=== PATIENT | male | born 1950 | race Caucasian/White ===

== ENCOUNTER 2022-11-01 14:46 | Emergency (ER) | payer OTHER ==
--- OUTSIDE RECORDS SUMMARY | 2022-11-01 14:56 | XMS REPORT | Continuity of Care Document ---
:1950 Author Organization [facility] t Address [address] [place] [address] Care Team Providers Name Role Phone No, Pcp [facility] Primary Care Physician Unavailable MORALES PÉREZ Attending Clinician Unavailable DONITA RUDD Attending Clinician Unavailable Linus Saleh MD Attending Clinician Isha Nunez MD Attending Clinician JOAQUIN ROLLINS Attending Clinician Unavailable JERRELL VILLAFUERTE Attending Clinician Unavailable MILY FLUTON Attending Clinician Unavailable Brady Juarez MD Attending Clinician Aubrey Moore MD Attending Clinician Basilio Ryan MD Attending Clinician Unavailable Liuns Saleh MD Attending Clinician ISHA NUNEZ Admitting Clinician Unavailable SHARON CLARK Admitting Clinician Unavailable Payers Payer Name Policy Type Policy Number Effective Date Expiration Date S kristin MEDICARE A B [id number] 2013 00:00:00 GENERIC MEDICARE [id number] 2019 SUPPLEMENT 00:00:00 Problems Condition Condition Condition Status Onset Resolution Last Treating Co mments Source Name Details Category Date Date Treatment Clinician Date s/p ACB x2 s/p ACB x2 Disease Recurre [facility] ([facility]G-[facility], (SVG-LAD, nce 3-21 Luke s SVG-ramus SVG-ramus 00:00: Medi alex int), AVR, int), AVR, 00 Ce nter Maze, Maze, Atriclip Atriclip 08/24/22 08/24/22 (Dr. Juarez) (Dr. Juarez) Acute Acute Disease Recurre [facility] renal [facility] failure failure Medical superimpos superimpos Ce nter ed on ed on stage 1 stage 1 chronic chronic kidney kidney disease, disease, unspecifie unspecifie d acute d acute renal renal failure failure type type Acute Acute Disease Active [facility] post-opera post-opera Nathalia kes tive pain tive pain [facility] Acute Acute Disease Active [facility] respirator respirator Nathalia kes y y Medical insufficie insufficie Ce nter ncy ncy Acute Acute Disease Active [facility] blood loss blood loss Nathalia kes anemia anemia [facility] Status Status Disease Active [facility] post post [facility] cardiac cardiac Medical surgery surgery Center Allergies, Adverse Reactions, Alerts Allergy Allergy Status Severity Reaction(s) Onset Inactive Treating Comm ents Source Name Type Date Date Clinician NO KNOWN Allergy Active [facility] Family History Family Member Diagnosis Comments Start Date Stop Date Source Natural mother [facility] Natural father [facility] Social History Social Habit Start Date Stop Date Quantity Comments Source Gender identity [facility] Alcohol intake 2022-10-14 2022-10-14 Lifetime [employer]ism 00:00:00 00:00:00 non-drinker Hospital (finding) History of Social 2022-10-14 2022-10-[address] function 00:00:00 00:00:00 Hospital Tobacco use and 2022-09-28 2022-09-28 Smokeless [employer]ism exposure 00:00:00 00:00:00 tobacco non-user Hospital Exposure to 2022-08-01 2022-08-11 Not sure [facility] SARS-CoV-2 (event) 00:00:00 19:00[facility] Sex Assigned At [birth year] [facility] 00:00:00 00:00:00 Hospital Smoking Status Start Date Stop Date Source Never smoked tobacco [facility] H ospital Medications Ordered Filled Start Stop Current Ordering Indication Dosage Frequency Signature Comments Components Source Medication Medication Date Date Medication? Clinician (SIG) Name Name sennosides Yes 1{tbl} QD Take 1 [facility]odi (SENNA 5-[address] LAXATIVE 09:51: mouth Hospita ORAL) 58 daily. l losartan 2022-0 Yes [id number] 100mg QD Take 1 M ethodi (COZAAR) 5-[address] 100 MG 00:00: (100 mg Hospita tablet 00 total) by l mouth daily. metoprolol 0 Yes [id number] 50mg QD Take 1 [facility] succinate 5-24 tablet (50 st XL 00:00: mg total) Hospita (TOPROL-XL) 00 by mouth l 50 mg 24 hr daily. tablet furosemide 0 Yes [id number] 20mg Q24H Take 1 [facility] (LASIX) 20 5-24 tablet (20 st mg tablet 00:00: mg total) Hos jessica 00 by mouth l daily as needed (leg swelling). atorvastati Yes [id number] 40mg QD Take 1 [facility] n (LIPITOR) 5-08 tablet (40 st 40 mg 00:00: mg total) Hospita tablet 00 by mouth l nightly. losartan 2022- No [id number] 50mg QD Take 1 M ethodi (COZAAR) 50 5-08 05-24 tablet (50 s t MG tablet 00:00: 00:00 mg total) Ho spita 00 :00 by mouth l daily. metoprolol 2022- No [id number] 25mg QD Take 1 Methodi succinate 5-08 05-24 tablet (25 st XL 00:00: 00:00 mg total) Hospita (TOPROL-XL) 00 :00 by mouth l 25 mg 24 hr daily. tablet Ferrocite Yes 1{tbl} QD Take 1 Meth allyson Plus 106 mg 4-[address] iron- 1 mg 00:00: mouth Hospit a tablet 00 daily with l breakfast. traZODone 2022- No TAKE 1/2 Met [facility] (DESYREL) 4-20 05-[address] 50 MG 00:00: 00:00 TABLET AT Hospit a tablet 00 :00 BEDTIME l NEEDED FeroSuL 325 2022- No 325mg QD Take 1 Me thodi mg (65 mg 4-20 05-[address] iron) 00:00: 00:00 (325 mg Hospita tablet 00 :00 total) by l mouth daily. metoprolol 2022- No TAKE 1 Meth allyson succinate 4-20 05-[address] XL 00:00: 00:00 MOUTH ONCE Hospit a (TOPROL-XL) 00 :00 DAILY AT l 25 mg 24 hr 6AM tablet losartan 2022- No 25mg QD Take 1 Method i (COZAAR) 25 4-20 05-08 tablet (25 s t MG tablet 00:00: 00:00 mg total) Ho spita 00 :00 by mouth l daily. gabapentin 2022- No 100mg Q.5D Take 1 Met [facility]odi (NEURONTIN) 4-20 05-[address] 100 mg 00:00: 00:00 (100 mg Hospita capsule 00 :00 total) by l mouth 2 (two) times a day. furosemide 2022- No TAKE 1 Meth allyson (LASIX) 20 -20 05-[address] mg tablet 00:00: 00:00 MOUTH AT 8 H ospita 00 :00 AM AND AT l 3 PM potassium 2022- No 10meq Q.5D Take 1 Meth allyson chloride -20 05-08 tablet (10 st (KLOR-CON) 00:00: 00:00 mEq total) Hospita 10 MEQ CR 00 :00 by mouth 2 l tablet (two) times a day. atorvastati 2022- No 40mg QD Take 1 Met hodi n (LIPITOR) -20 05-08 tablet (40 s t 40 mg 00:00: 00:00 mg total) Hospit a tablet 00 :00 by mouth l nightly. nystatin 2022- No APPLY Methodi (MYCOSTATIN -20 05-[address] ) 100,000 00:00: 00:00 TOPICALLY Ho spita unit/gram 00 :00 TO l powder AFFECTED AREA TWICE DAILY polyethylen Yes 17g QD Take [address] e glycol 4-12 by mouth [facility] (GLYCOLAX) 00:00: in the Medic al 17 gram 00 morning. Center packet aspirin 2023- Yes 81mg QD Take 1 [facility] (ECOTRIN) 09-02 04-12 tablet (81 st 81 MG 00:00: 04:59 mg total) Hospit a enteric 00 :00 by mouth l coated daily. tablet aspirin 81 2023- Yes 81mg QD Take [address] [facility] MG EC 09-02-11 tablet (81 [facility] tablet 00:00: 23:59 mg total) Medic al 00 :00 by mouth Center in the morning. metoprolol 2022-0 2023- Yes 25mg QD Take [address] [facility] succinate 09-02- tablet (25 Dorys es (TOPROL-XL) 00:00: 23:59 mg total) Medical 25 MG 24 hr 00 :00 by mouth Cent er tablet in the morning. amiodarone 2023- Yes 200mg QD Take [address] [facility] (PACERONE) 09-02 tablet [facility] 200 MG 00:00: 23:59 (200 mg Medical tablet 00 :00 total) by Center mouth in the morning. losartan 2023- Yes 25mg QD Take [address] [facility] (COZAAR) 25 09-02 tablet (25 L ukes MG tablet 00:00: 23:59 mg total) Me dical 00 :00 by mouth Center in the morning. amIODarone 2022- No 200mg Take 1 Met hodi (PACERONE) 09-02 05-[address] 200 MG 00:00: 00:00 (200 mg Hospita tablet 00 :00 total) by l mouth. heparin 2022-0 Yes 5000U Inject 1 [facility] injection 4-11 mL (5,000 [facility] 5,000 00:00: Units Medical units/mL 00 total) Center subcutaneo usly every 8 (eight) hours. melatonin 3 0 Yes 3mg Take [address] [facility] mg tablet 4-11 tablet (3 [facility] 00:00: mg total) Medical 00 by mouth Center every night as needed for Insomnia or Sleep. empaglifloz 2022-0 Yes 10mg QD Take [address] [facility] [facility] in 4-11 tablet (10 [facility] (JARDIANCE) 00:00: mg total) M edical 10 mg 00 by mouth Center tablet in the morning. atorvastati 0 2023- Yes 40mg QD Take [address] n (LIPITOR) 09-01 04-10 tablet (40 L ukes 40 MG 00:00: 23:59 mg total) Medica l tablet 00 :00 by mouth Center nightly. senna-docus 2023- Yes 1{tbl} Q.5D Take [address] ate - 04-10 tablet by [facility] (SENOKOT S) 00:00: 23:59 mouth in M edical 8.6-50 mg 00 :00 the Center per tablet morning and 1 tablet before bedtime. insulin 2023- Yes 0U Inject 0-[address] lispro 4-11 04-10 Units [facility]ukes (HumaLOG) 00:00: 23:59 subcutaneo M edical 100 unit/mL 00 :00 usly 3 Center injection (three) times daily before meals. insulin 2023- Yes 0U Inject 0-[address] lispro 4-11 04-10 Units [facility]ukes (HumaLOG) 00:00: 23:59 subcutaneo M edical 100 unit/mL 00 :00 usly every Ce nter injection night as needed (High blood sugar). potassium 2023- Yes 20meq Q.5D Take [address] chloride SA 09-01 04-10 tablet (20 L ukes (K-DUR,KLOR 00:00: 23:59 mEq total) Medical -CON-M) 20 00 :00 by mouth Cente r MEQ tablet in the morning and 1 tablet (20 mEq total) before bedtime. furosemide 2023- Yes 40mg Take [address] [facility] [facility] (LASIX) 40 - 04-10 tablet (40 Nathalia kes MG tablet 00:00: 23:59 mg total) Me dical 00 :00 by mouth Center in the morning and 1 tablet (40 mg total) in the evening. lidocaine 2022- Yes 1{patch Q24H Place [address] (LIDODERM) 09-01 } patch onto Nathalia kes 5 % patch 00:00: 23:59 the skin Med ical 00 :00 in the Center morning for 30 days. Remove & Discard patch within 12 hours or as directed by . sennosides- 2022- No 1{tbl} Take 1 M ethodi docusate 09-01-[address] sodium 00:00: 00:00 mouth. Hospita (SENOKOT-S) 00 :00 l 8.6-50 mg per tablet traMADoL 2022- Yes 50mg Take [address] [facility] [facility] (ULTRAM) 50 09-01 tablet (50 L ukes mg tablet 00:00: 23:59 mg total) Me dical 00 :00 by mouth Center every 6 (six) hours as needed for up to 10 days. Max Daily Amount: 200 mg oxyCODONE 2022- Yes 5mg Take 1 [facility] t (ROXICODONE 09-01 tablet (5 Nathalia kes ) 5 MG 00:00: 23:59 mg total) Medic al immediate 00 :00 by mouth Center release every 6 tablet (six) hours as needed for up to 10 days . Max Daily Amount: 20 mg Vital Signs Vital Name Observation Time Observation Value Comments Source HEIGHT 2022-10-26 09:07:00 182.9 cm WEIGHT 2022-10-26 09:07:00 92.987 kg WEIGHT 2022-09-02 06:21:00 98.476 kg WEIGHT 2022-08-30 04:11:00 102.967 kg WEIGHT 2022-08-29 10:53:00 103.42 kg WEIGHT 2022 06:00:00 99.6 kg WEIGHT 2022-08-24 03:47:00 94.575 kg WEIGHT 2022-08-23 05:16:00 95.709 kg WEIGHT 2022-08-18 06:18:00 99.156 kg WEIGHT 2022-08-15 05:33:00 97.523 kg WEIGHT 2022-08-13 03:00:00 100.245 kg WEIGHT 2022-08-12 05:00:00 97.886 kg HEIGHT 2022-08-11 22:00:00 182.9 cm WEIGHT 2022-08-11 22:00:00 97.977 kg WEIGHT 2022-09-02 06:21:00 98.476 kg WEIGHT 2022-08-30 04:11:00 102.967 kg WEIGHT 2022-08-29 10:53:00 103.42 kg WEIGHT 2022 06:00:00 99.6 kg WEIGHT 2022-08-24 03:47:00 94.575 kg WEIGHT 2022-08-23 05:16:00 95.709 kg WEIGHT 2022-08-18 06:18:00 99.156 kg WEIGHT 2022-08-15 05:33:00 97.523 kg WEIGHT 2022-08-13 03:00:00 100.245 kg WEIGHT 2022-08-12 05:00:00 97.886 kg HEIGHT 2022-08-11 22:00:00 182.9 cm WEIGHT 2022-08-11 22:00:00 97.977 kg Systolic blood 2022-10-14 14:42:00 176 mm[Hg] [facility] pressure Diastolic blood 2022-10-14 14:42:00 107 mm[Hg] [facility] pressure Heart rate 2022-10-14 14:42:00 97 /min [facility] Respiratory rate 2022-10-14 14:42:00 12 /min [facility] Body height 2022-10-14 14:42:00 182.9 cm [facility] Body weight 2022-10-14 14:42:00 95.255 kg [facility] BMI 2022-10-14 14:42:00 28.48 kg/m2 [facility] Oxygen saturation in 2022-10-14 14:42:00 98 /min [facility] Arterial blood by Pulse oximetry Systolic blood 2022-09-02 08:20:00 121 mm[Hg] [facility] Diastolic blood 2022-09-02 08:20:00 58 mm[Hg] [facility] Heart rate 2022-09-02 08:20:00 81 /min [facility] Respiratory rate 2022-09-02 07:48:00 18 /min [facility] Oxygen saturation in 2022-09-02 07:48:00 96 /min [facility] Arterial blood by Medical Ce nter Pulse oximetry Body temperature 2022-09-02 07:00:00 35.94 [place] [facility] Body weight 2022-09-02 06:21:00 98.476 kg [facility] BMI 2022-09-02 06:21:00 29.44 kg/m2 [facility] Body height 2022-08-11 22:00:00 182.9 cm [facility] Procedures Procedure Date / Time Performing Clinician Source Performed TRANSTHORACIC 2022-10-20 14:45:37 Linus Saleh [facility] Ho spital ECHOCARDIOGRAM COMPLETE W CONT STRAIN 3D IF NEEDED POCT-GLUCOSE METER 2022-09-02 08:04:00 Geri, [facility] HEPATIC FUNCTION PANEL 2022-09-02 05:16:00 Octavio [facility] CBC (HEMOGRAM ONLY) 2022-09-02 05:16:00 [facility] BASIC METABOLIC PANEL 2022-09-02 05:16:00 Kely-[facility] MAGNESIUM 2022-09-02 05:16:00 Kely-[facility] POCT-GLUCOSE METER 2022-09-01 21:09:00 Villafuerte, [facility] POCT-GLUCOSE METER 2022-09-01 17:08:00 Villafuerte, [facility] POCT-GLUCOSE METER 2022-09-01 12:36:00 Villafuerte, [facility] POCT-GLUCOSE METER 2022-09-01 07:11:00 Villafuerte, [facility] HEPATIC FUNCTION PANEL 2022-09-01 05:17:00 Octavio [facility] CBC (HEMOGRAM ONLY) 2022-09-01 05:17:00 [facility] BASIC METABOLIC PANEL 2022-09-01 05:17:00 Kely-[facility] MAGNESIUM 2022-09-01 05:17:00 [facility]SE METER 2022-08-31 17:20:00 Villafuerte, [facility] POCT-GLUCOSE METER 2022-08-31 12:31:00 Villafuerte, [facility] POCT-GLUCOSE METER 2022-08-31 07:12:00 JoudaSantiago tom [facility] CBC (HEMOGRAM ONLY) 2022-08-31 05:00:00 [facility] 2022-08-31 04:59[facility]00 [facility] 2022-08-31 04:59:00 Kely-[facility] MAGNESIUM 2022-08-31 04:59:00 Kely-[facility] POCT-GLUCOSE METER 2022-08-30 17:13:00 JoudaSantiago tom [facility] POCT-GLUCOSE METER 2022-08-30 12:12:00 Joudavaishali Santiago [facility] POCT-GLUCOSE METER 2022-08-30 08:06:00 Joudavaishali Santiago [facility] HEPATIC FUNCTION PANEL 2022-08-30 06:06:00 Octavio [facility] BASIC METABOLIC PANEL 2022-08-30 06:06:00 Octavio [facility] CBC (HEMOGRAM ONLY) 2022-08-30 06:06:00 [facility] MAGNESIUM 2022-08-30 06:06:00 [facility] 2022-08-29 19:47:00 Jorommel Santiago Mayrawayne [facility] POCT-GLUCOSE METER 2022-08-29 17:17:00 JoudaSantiago tom [facility] POCT-GLUCOSE METER 2022-08-29 11:59:00 Joudah Santiago [facility] POCT-GLUCOSE METER 2022-08-29 07:13:00 Lawson Vernon [facility] HEPATIC FUNCTION PANEL 2022-08-29 06:07:00 Octavio [facility] BASIC METABOLIC PANEL 2022-08-29 06:07:00 Octavio [facility] CBC (HEMOGRAM ONLY) 2022-08-29 06:07:00 [facility]UM 2022-08-29 06:07:00 [facility] POCT-GLUCOSE METER 2022-08-28 20:19:00 Lawson [facility] POCT-GLUCOSE METER 2022-08-28 17:22:00 Lawson [facility] B-TYPE NATRIURETIC FACTOR 2022-08-28 13:06:00 Linus Saleh I [facility] (BNP) [facility] LACTIC ACID, VENOUS 2022-08-28 13:06:00 Linus Saleh [facility] 2D ECHO W/ DOPPLER 2022-08-28 11:13:29 Enedelia Saleh [facility] (CW/PW/COLOR) [facility] POCT-GLUCOSE METER 2022-08-28 11:00:00 Lawson [facility] POCT-GLUCOSE METER 2022-08-28 07:06:00 VillafuerteJerrell [facility] HEPATIC FUNCTION PANEL 2022-08-28 06:42:00 Octavio [facility] BASIC METABOLIC PANEL 2022-08-28 06:42:00 Octavio [facility] MAGNESIUM 2022-08-28 06:42:00 [facility] CBC (HEMOGRAM ONLY) 2022-08-28 04:55:00 [facility] POCT-GLUCOSE METER 2022-08-27 20:59:00 Villafuerte Jerrell Nemesio [facility] POCT-GLUCOSE METER 2022-08-27 17:37:00 Villafuerte, Jerrell [facility] BASIC METABOLIC PANEL 2022-08-27 16:45:00 Ihsan Waterman [facility] XR CHEST 1 VIEW PORTABLE / 2022-08-27 14:47:00 Brady Juarez [facility] POCT-GLUCOSE METER 2022-08-27 12:38:00 [facility] PO[facility]SE [facility]ER 2022-08-27 07:39:00 [facility] BASIC METABOLIC PANEL 2022-08-27 02:36:00 Serangelo [facility] CALCIUM, IONIZED 2022-08-27 02:36:00 [facility] FUN[facility]EL 2022-08-27 02:36:00 Cher Rebollar [facility] LACTIC ACID, ARTERIAL 2022-08-27 02:36:00 Serangelo [facility] MAGNESIUM 2022-08-27 02:36:00 Serangelo [facility] PHOSPHORUS 2022-08-27 02:36:00 [facility] CBC W/PLT COUNT & AUTO 2022-08-27 02:36:00 [facility] DIFFERENTIAL [facility] CBC W/PLT COUNT & AUTO 2022-08-27 02:36:00 [facility] DIFFERENTIAL [facility] XR CHEST 1 VIEW PORTABLE / 2022-08-27 02:32:00 Dante Fenton [facility] FIBRINOGEN 2022-08-27 02:30:00 [facility] PT/APTT 2022-08-27 02:30:00 [facility] POCT-[facility]UCOSE METER 2022-08-27 00:05:00 [facility]ARE LEUKO-REDUCED RBC 2022 23:55:00 Evy Perdomo [facility] POCT-GLUCOSE METER 2022 18:52:00 [facility] BASIC METABOLIC PANEL 2022 17:10:00 [facility] CALCIUM, IONIZED 2022 17:10:00 [facility] CBC (HEMOGRAM ONLY) 2022 17:10:00 Sermillicentbisi [facility] MAGNESIUM 2022 17:10:00 [facility] PHOSPHORUS 2022 17:10:00 [facility] POCT-GLUCOSE METER 2022 11:59:00 [facility] OXYGEN SATURATION, 2022 08:40:[facility] LACTIC ACID, ARTERIAL 2022 08:40:00 [facility] OXYGEN SATURATION, 2022 06:01[facility]00 [facility] 2022 06:00:00 Villafuerte [facility] BASIC METABOLIC PANEL 2022 02:33:00 [facility] BLOOD GAS, ARTERIAL 2022 02:33:00 [facility] CALCIUM, IONIZED 2022 02:33:00 [facility] HEPATIC FUNCTION PANEL 2022 02:33:00 Cher Rebollar [facility] FIBRINOGEN 2022 02:33:00 [facility] LACTIC ACID, ARTERIAL 2022 02:33:00 [facility] MAGNESIUM 2022 02:33:00 [facility] OXYGEN SATURATION, 2022 02:33:00 [facility] ME[facility]ED [facility] PHOSPHORUS 2022 02:33:00 Serangelo [facility] PT/APTT 2022 02:33:00 [facility] CBC W/PLT COUNT & AUTO 2022 02:33:00 Sermillicentbisi [facility] DIFFERENTIAL [facility] CBC W/PLT COUNT & AUTO 2022 02:33:00 [facility] DIFFERENTIAL [facility] (CELLAVISION MANUAL DIFF) 2022 02:33:00 [facility] XR CHEST 1 VIEW PORTABLE / 2022 01:27:00 Dante Fenton [facility] PREPARE RBC 2022-08-25 23:54:00 Brady Juarez [facility] OXYGEN SATURATION, 2022-08-25 23:34:00 [facility] MEASURED [facility] CALCIUM, IONIZED 2022-08-25 23:34:00 [facility] POCT-GLUCOSE METER 2022-08-25 23:32:00 Jerrell Villafuerte [facility] RRL CRITICAL LABS 2022-08-25 20:28:00 [facility] (ABG,NA,K,H&H,GLUCOSE) [facility] enter CALCIUM, IONIZED 2022-08-25 20:28:00 [facility] BLOOD GAS, ARTERIAL 2022-08-25 20:28:00 [facility] L [facility] SODIUM NA-STAT LAB 2022-08-25 20:28:00 [facility] POTASSIUM-STAT LAB 2022-08-25 20:28:00 [facility] GLUCOSE-STAT LAB 2022-08-25 20:28:00 [facility] HGB/HCT (H&H) - STAT LAB 2022-08-25 20:28:00 [facility] POCT-GLUCOSE METER 2022-08-25 18:17:00 [facility] TRANSFUSE LEUKO-REDUCED 2022-08-25 17:31:00 Evy Perdomo CH, I [facility] RED BLOOD CELLS [facility] POCT-GLUCOSE METER 2022-08-25 15:53:00 Villafuerte [facility] BASIC METABOLIC PANEL 2022-08-25 15:47:00 [facility], [facility]ON[facility]ED 2022-08-25 15:47:00 [facility] CBC (HEMOGRAM ONLY) 2022-08-25 15:47:00 Columb[facility] MAGNESIUM 2022-08-25 15:47:00 Serangelo [facility] PHOSPHORUS 2022-08-25 15:47:00 [facility] LACTIC ACID, ARTERIAL 2022-08-25 15:47:00 Dante Fenton [facility] LACTIC ACID, ARTERIAL 2022-08-25 12:18:00 Dante Fenotn [facility] POCT-GLUCOSE METER 2022-08-25 12:13:00 [facility] POCT-GLUCOSE METER 2022-08-25 08:47:00 [facility] LACTIC ACID, ARTERIAL 2022-08-25 08:34:00 [facility] OXYGEN SATURATION, 2022-08-25 08:34:00 [facility] BLOOD [facility]AS, ARTERIAL 2022-08-25 08:34:00 [facility] METABOLIC PANEL 2022-08-25 08:34:00 Phan Alexander [facility] CALCIUM, IONIZED 2022-08-25 08:34:00 [facility] POCT-GLUCOSE METER 2022-08-25 07:27:00 Villafuerte [facility] POCT-GLUCOSE METER 2022-08-25 06:27:00 Villafuerte, [facility] POCT-GLUCOSE METER 2022-08-25 03:19:00 Villafuerte [facility] BASIC METABOLIC PANEL 2022-08-25 02:12:00 [facility] BLOOD GAS, ARTERIAL 2022-08-25 02:12:00 [facility]CI[facility], [facility]ON[facility]ED 2022-08-25 02:12:00 [facility] HEPATIC FUNCTION PANEL 2022-08-25 02:12:00 OctavioCher [facility] FIBRINOGEN 2022-08-25 02:12:00 [facility] LACTIC ACID, ARTERIAL 2022-08-25 02:12:00 [facility] MAGNESIUM 2022-08-25 02:12:00 [facility] OXYGEN SATURATION, 2022-08-25 02:12:00 Serangelo [facility] MEASURED [facility] PHOSPHORUS 2022-08-25 02:12:00 [facility] PT/APTT 2022-08-25 02:12:00 [facility] CBC W/PLT COUNT & AUTO 2022-08-25 02:12:00 Serenibisi [facility] DIFFERENTIAL [facility] CBC W/PLT COUNT & AUTO 2022-08-25 02:12:00 Serenibisi [facility] DIFFERENTIAL [facility] POCT-GLUCOSE METER 2022-08-25 01:16:00 [facility] XR CHEST 1 VIEW PORTABLE / 2022-08-25 01:06:00 Dante Fenton [facility] POCT-GLUCOSE METER 2022-08-25 00:09:00 [facility] BLOOD GAS, ARTERIAL 2022-08-24 23:08:00 [facility] POCT-GLUCOSE METER 2022-08-24 23:04:00 [facility] POCT-GLUCOSE METER 2022-08-24 21:53:00 [facility] RRL CRITICAL LABS 2022-08-24 21:07[facility]NA,K,H&H,GLUCOSE) [facility] enter LACTIC ACID, ARTERIAL 2022-08-24 21:07:00 [facility] BLOOD GAS, ARTERIAL 2022-08-24 21:07[facility] 2022-08-24 21:07:00 [facility] POTASSIUM-STAT LAB 2022-08-24 21:07:00 [facility] GLUCOSE-STAT LAB 2022-08-24 21:07:00 [facility]&H[facility] - STAT LAB 2022-08-24 21:07:00 [facility] METER 2022-08-24 19:48:00 [facility] 2022-08-24 19:36:00 [facility] (ABG,NA,K,H&H,GLUCOSE) [facility] enter LACTIC ACID, ARTERIAL 2022-08-24 19:36:00 [facility] CALCIUM, IONIZED 2022-08-24 19:36:00 LTAC, located within [facility] BLOOD GAS, ARTERIAL 2022-08-24 19:36[facility]00 [facility] 2022-08-24 19:36[facility]00 [facility] 2022-08-24 19:36:00 [facility] 2022-08-24 19:36:00 LTAC[facility] located within [facility] HGB/HCT (H&H) - STAT LAB 2022-08-24 19:36:00 [facility] RRL CRITICAL LABS 2022-08-24 17:13:00 Juarez, [facility] (ABG,NA,K,H&H,GLUCOSE) Medical enter BLOOD GAS, ARTERIAL 2022-08-24 17:13:00 Juarez, [facility] SODIUM NA-STAT LAB 2022-08-24 17:13:00 Juarez, [facility] POTASSIUM-STAT LAB 2022-08-24 17:13:00 Juarez, [facility] GLUCOSE-STAT LAB 2022-08-24 17:13:00 Juarez, [facility] HGB/HCT (H&H) - STAT LAB 2022-08-24 17:13:00 Juarez, [facility] LACTIC ACID, ARTERIAL 2022-08-24 17:13:00 Dante Fenton [facility] XR CHEST 1 VIEW PORTABLE / 2022-08-24 15:45:00 Dante Fenton [facility] MISCELLANEOUS LAB ORDER 2022-08-24 14:39:00 Dante Fenton [facility] BLOOD GAS, ARTERIAL 2022-08-24 14:39:00 Dante Fenton [facility] CALCIUM, IONIZED 2022-08-24 14:39:00 Dante Fenton [facility] CBC W/PLT COUNT & AUTO 2022-08-24 14:39:00 Dante Fenton [facility] COMPREHENSIVE METABOLIC 2022-08-24 14:39:00 Dante Fenton [facility] FIBRINOGEN 2022-08-24 14:39:00 Dante Fenton [facility] LACTIC ACID, ARTERIAL 2022-08-24 14:39:00 Dante Fenton [facility] MAGNESIUM 2022-08-24 14:39:00 Dante Fenton [facility] OXYGEN SATURATION, 2022-08-24 14:39:[address] [facility] PHOSPHORUS 2022-08-24 14:39:00 Dante Fenton [facility] PROTHROMBIN TIME/INR 2022-08-24 14:39:[address] [facility] PT/APTT 2022-08-24 14:39:00 Dante Fenton [facility] SODIUM NA-STAT LAB 2022-08-24 14:39:00 Eliceo Dante [facility] POTASSIUM-STAT LAB 2022-08-24 14:39:00 Dante Fenton [facility] GLUCOSE-STAT LAB 2022-08-24 14:39:00 Eliceo Dante [facility] HGB/HCT (H&H) - STAT LAB 2022-08-24 14:39:00 Dante Fenton [facility] CBC W/PLT COUNT & AUTO 2022-08-24 14:39:00 Dante Fenton [facility] RRL CRITICAL LABS 2022-08-24 13:39:01 Teresa [facility] (ABG,NA,K,H&H,GLUCOSE) Medical C enter CALCIUM, IONIZED 2022-08-24 13:39:01 Aubrey Moore [facility] BLOOD GAS, ARTERIAL 2022-08-24 13:39:01 Teresa [facility] SODIUM NA-STAT LAB 2022-08-24 13:39:01 Teresa [facility] POTASSIUM-STAT LAB 2022-08-24 13:39:01 Teresa [facility] GLUCOSE-STAT LAB 2022-08-24 13:39:01 Teresa [facility] HGB/HCT (H&H) - STAT LAB 2022-08-24 13:39:01 Teresa [facility] TRANSFUSE LEUKO-REDUCED 2022-08-24 13:14:00 Teresa [facility] RED BLOOD CELLS [facility] PROTHROMBIN TIME/INR 2022-08-24 13:09:17 Teresa [facility] APTT 2022-08-24 13:09:17 Teresa [facility] FIBRINOGEN 2022-08-24 13:09:17 Teresa [facility] PLATELET COUNT 2022-08-24 13:09:17 Teresa [facility] POCT-ACT 2022-08-24 13:04:00 Jerrell Villafuerte [facility] RRL CRITICAL LABS 2022-08-24 12:41:26 Teresa [facility] (ABG,NA,K,H&H,GLUCOSE) Medical C enter CALCIUM, IONIZED 2022-08-24 12:41:26 Teresa [facility] BLOOD GAS, ARTERIAL 2022-08-24 12:41:26 Teresa [facility] SODIUM NA-STAT LAB 2022-08-24 12:41:26 Teresa [facility] POTASSIUM-STAT LAB 2022-08-24 12:41:26 Teresa [facility] GLUCOSE-STAT LAB 2022-08-24 12:41:26 Teresa [facility] HGB/HCT (H&H) - STAT LAB 2022-08-24 12:41:26 Teresa, Aubrey Ross [facility] POCT-ACT 2022-08-24 12:21:00 Villaf[facility]te[facility]rell [facility] RRL CRITICAL LABS 2022-08-24 12:19:46 Juarez, Brady Gutiérrez [facility] es (ABG,NA,K,H&H,GLUCOSE) Medical C enter BLOOD GAS, ARTERIAL 2022-08-24 12:19:46 Juarez, Brady Gutiérrez [facility] SODIUM NA-STAT LAB 2022-08-24 12:19:46 Juarez, Brady Gutiérrez [facility] POTASSIUM-STAT LAB 2022-08-24 12:19:46 Juarez, Brady Gutiérrez [facility] GLUCOSE-STAT LAB 2022-08-24 12:19:46 Juarez, Brady Gutiérrez [facility] HGB/HCT (H&H) - STAT LAB 2022-08-24 12:19:46 Juarez Brady Gutiérrez [facility] POCT-ACT 2022-08-24 11:42:00 Villafuerte Jer[facility] RRL CRITICAL LABS 2022-08-24 11:40:21 Juarez, [facility] ([facility]G,NA,K,H&H,GLUCOSE) Medical C enter BLOOD GAS, ARTERIAL 2022-08-24 11:40:21 Juarez, Brady Gutiérrez [facility] SODIUM NA-STAT LAB 2022-08-24 11:40:21 Juarez, Brady Gutiérrez [facility] POTASSIUM-STAT LAB 2022-08-24 11:40:21 Juarez, Brady Gutiérrez [facility] GLUCOSE-STAT LAB 2022-08-24 11:40:21 Juarez, Brady Gutiérrez [facility] HGB/HCT (H&H) - STAT LAB 2022-08-24 11:40:21 Juarez, Brady Gutiérrez [facility] POCT-ACT 2022-08-24 11:11:00 Villafuerte [facility] RRL CRITICAL LABS 2022-08-24 11:09:42 Juarez, Brady Gutiérrez [facility] (ABG,NA,K,H&H,GLUCOSE) Medical C enter BLOOD GAS, ARTERIAL 2022-08-24 11:09:42 Juarez, [facility] SODIUM NA-STAT LAB 2022-08-24 11:09:42 Juarez, Brady [facility] POTASSIUM-STAT LAB 2022-08-24 11:09:42 Juarez, Brady Gutiérrez [facility] GLUCOSE-STAT LAB 2022-08-24 11:09:42 Juarez, Brady Gutiérrez [facility] HGB/HCT (H&H) - STAT LAB 2022-08-24 11:09:42 Juarez, Brady [facility] RRL CRITICAL LABS 2022-08-24 10:41:01 Sophia Brady Gutiérrez [facility] (ABG,NA,K,H&H,GLUCOSE) Medical C enter BLOOD GAS, ARTERIAL 2022-08-24 10:41:01 Sophia [facility] SODIUM NA-STAT LAB 2022-08-24 10:41:01 Sophia Brady Gutiérrez [facility] POTASSIUM-STAT LAB 2022-08-24 10:41:01 Juarez, Brady [facility] GLUCOSE-STAT LAB 2022-08-24 10:41:01 Sophia, [facility] HGB/HCT (H&H) - STAT LAB 2022-08-24 10:41:01 Sophia [facility] POCT-ACT 2022-08-24 10:41:00 Villafuerte [facility] POCT-ACT 2022-08-24 10:14:00 [facility] 2022-08-24 08:07:00 [facility] RRL CRITICAL LABS 2022-08-24 07:53:07 Teresa [facility] (ABG,NA,K,H&H,GLUCOSE) Medical C enter CALCIUM, IONIZED 2022-08-24 07:53:07 Teresa [facility] BLOOD GAS, ARTERIAL 2022-08-24 07:53:07 Teresa [facility] SODIUM NA-STAT LAB 2022-08-24 07:53:07 Teresa Aubrey [facility] POTASSIUM-STAT LAB 2022-08-24 07:53:07 Teresa Aubrey [facility] GLUCOSE-STAT LAB 2022-08-24 07:53:07 Teresa Aubrey [facility] HGB/HCT (H&H) - STAT LAB 2022-08-24 07:53:07 Teresa Aubrey Nguyễn [facility] ANESTHESIA ANN-MARIE 2022-08-24 07:41:08 Juan J Quevedo [facility] CABG, USING INTERNAL 2022-08-24 07:12:00 Juarez, Brady Gutiérrez [facility] THORACIC ARTERY AND Medical Cent er SAPHENOUS VEIN GRAFT MAZE PROCEDURE, USING 2022-08-24 07:12:00 Juarez, Brady Gutiérrez [facility] CRYOABLATION [facility] LIGATION, ATRIAL APPENDAGE 2022-08-24 07:12:00 Juarez, Brady Conley [facility] REPLACEMENT, AORTIC VALVE 2022-08-24 07:12:00 Juarez, Brady Gutiérrez [facility] ECHOCARDIOGRAM, 2022-08-24 07:12:00 Juarez, Brady Gutiérrez [facility] TRANSESOPHAGEAL [facility] SURGICAL PROCUREMENT, 2022-08-24 07:12:00 Juarez, Brady Gutiérrez [facility] VEIN, ENDOSCOPIC [facility] BASIC METABOLIC PANEL 2022-08-24 03:52:00 Angela Winslow [facility] CBC (HEMOGRAM ONLY) 2022-08-24 03:52:00 Jerrell Villafuerte [facility] APTT 2022-08-24 03:52:00 Rupert Dean [facility] TYPE AND SCREEN, AUTOMATED 2022-08-24 03:52:00 Jerrell Villafuerte [facility] POCT-GLUCOSE METER 2022-08-23 21:19:00 Jerrell Villafuerte [facility] POCT-GLUCOSE METER 2022-08-23 17:01:00 VillafuerteJerrell [facility] POCT-GLUCOSE METER 2022-08-23 12:04:00 Villafuerte, Jerrell [facility] POCT-GLUCOSE METER 2022-08-23 07:43:00 Villafuerte Jerrell [facility] APTT 2022-08-23 05:08:00 Villafuerte [facility] BASIC METABOLIC PANEL 2022-08-23 05:08:00 Nayla [facility] POCT-GLUCOSE METER 2022-08-22 21:56:00 Villafuerte [facility] POCT-GLUCOSE METER 2022-08-22 17:06:00 Villafuerte [facility] POCT-GLUCOSE METER 2022-08-22 11:53:00 Villafuerte [facility] POCT-GLUCOSE METER 2022-08-22 07:29:00 [facility] BASIC METABOLIC PANEL 2022-08-22 01:05:00 Nayla [facility] APTT 2022-08-22 01:05:00 Rupert Dean [facility] POCT-GLUCOSE METER 2022-08-21 20:47:00 Geri [facility] APTT 2022-08-21 18:32:00 Rupert Dean [facility] POCT-GLUCOSE METER 2022-08-21 17:19:00 [facility] PO[facility]SE METER 2022-08-21 11:28:00 Geri Jerrell [facility] APTT 2022-08-21 10:57:00 Rupert Dean [facility] POCT-GLUCOSE METER 2022-08-21 07:19:00 [facility] BASIC METABOLIC PANEL 2022-08-21 03:56:00 Nayla [facility] APTT 2022-08-21 03:56:00 Rupert Dean [facility] APTT 2022-08-20 21:37:00 Rupert Dean [facility] POCT-GLUCOSE METER 2022-08-20 21:21:00 Geri [facility] POCT-GLUCOSE METER 2022-08-20 17:11:00 [facility] BASIC METABOLIC PANEL 2022-08-20 15:10:00 Angela Winslow [facility] APTT 2022-08-20 14:44:00 Rupert Dean [facility] APTT 2022-08-20 12:36:00 Rupert Dean [facility] POCT-GLUCOSE METER 2022-08-20 12:01:00 [facility] PO[facility]UCOSE METER 2022-08-20 07:51:00 [facility] 2022-08-20 04:11:00 Rupert Dean [facility] POCT-GLUCOSE METER 2022-08-19 20:59:00 Geri [facility] POCT-GLUCOSE METER 2022-08-19 17:10:00 [facility] 2022-08-19 16:47:00 Rupert Dean [facility] POCT-GLUCOSE METER 2022-08-19 12:28:00 [facility] 2022-08-19 09:25:00 Rupert Dean [facility] POCT-GLUCOSE METER 2022-08-19 07:23:00 Geri Jerrell [facility] COMPREHENSIVE METABOLIC 2022-08-19 01:51:00 Rupert Dean [facility] APTT 2022-08-19 01:51:00 Rupert Dean [facility] CAROTID DOPPLER BILATERAL 2022-08-18 21:11:00 Rupert Dean [facility] VEIN MAPPING LEGS 2022-08-18 21:11:00 Rupert Dean [facility] POCT-GLUCOSE METER 2022-08-18 21:08:00 Villafuerte [facility] POCT-ACT 2022-08-18 16:08:00 Villafuerte [facility] POCT-ACT 2022-08-18 13:52:00 Villafuerte [facility] POCT-GLUCOSE METER 2022-08-18 07:36:00 [facility] ABORH, MANUAL 2022-08-18 05:50:00 Amara Limon [facility] COMPREHENSIVE METABOLIC 2022-08-18 05:34:00 Jermaine Rupert [facility] APTT 2022-08-18 05:34:00 [facility] TYPE AND SCREEN, AUTOMATED 2022-08-18 05:34:00 Rupert Dean [facility] APTT 2022-08-17 22:22:00 Rupert Dean [facility] POCT-GLUCOSE METER 2022-08-17 21:06:00 [facility] PO[facility]SE [facility]ER 2022-08-17 17:00:00 Geri [facility] APTT 2022-08-17 15:33:00 Jermaine Rupert [facility] 2D ECHO W/ DOPPLER 2022-08-17 12:49:13 Linus Saleh [facility] (CW/PW/COLOR) [facility] POCT-GLUCOSE METER 2022-08-17 11:54:00 [facility] POCT-GLUCOSE METER 2022-08-17 07:42:00 [facility] AP[facility] 2022-08-17 07:38:00 Rupert Dean [facility] COMPREHENSIVE METABOLIC 2022-08-17 04:49:00 Jermaine Rupert [facility] CBC W/PLT COUNT & AUTO 2022-08-17 04:49:00 Parhizgar, Cristobal [facility] APTT 2022-08-17 04:49:00 [facility] W/[facility]T COUNT & AUTO 2022-08-17 04:49:[address] [facility] (CELLAVISION MANUAL DIFF) 2022-08-17 04:49:00 Cristobal Remy [facility] POCT-GLUCOSE METER 2022-08-16 20:27:00 [facility] 2022-08-16 17:12:00 [facility] POCT-GLU[facility]SE METER 2022-08-16 12:25:00 [facility] APTT 2022-08-16 12:13:00 Rupert Dean [facility] POCT-GLUCOSE METER 2022-08-16 07:46:00 Sandrita [facility] HEPATIC FUNCTION PANEL 2022-08-16 04:20:00 Waldo Figueroa [facility] BASIC METABOLIC PANEL 2022-08-16 04:20:00 [facility] CALCIUM, IONIZED 2022-08-16 04:20:00 Cristobal Remy [facility] PHOSPHORUS 2022-08-16 04:20:00 Cristobal Remy [facility] CBC W/PLT COUNT & AUTO 2022-08-16 04:20:00 Cristobal Remy [facility] MAGNESIUM 2022-08-16 04:20:00 [facility] 2022-08-16 04:20:00 Rupert Dean [facility] CBC W/PLT COUNT & AUTO 2022-08-16 04:20:[address] [facility] (CELLAVISION MANUAL DIFF) 2022-08-16 04:20:00 [facility] POCT-GLUCOSE METER 2022-08-15 21:20:00 Cristobal Remy [facility] APTT 2022-08-15 21:08:00 Rupert Dean [facility] APTT 2022-08-15 19:28:00 Rupert Dean [facility] POCT-GLUCOSE METER 2022-08-15 17:24:00 Sandrita [facility] BLOOD GAS, VENOUS 2022-08-15 13:17:00 [facility] BASIC METABOLIC PANEL 2022-08-15 13:17:00 Nayla [facility] APTT 2022-08-15 13:17:00 Rupert Dean [facility] POCT-GLUCOSE METER 2022-08-15 12:08:00 Sandrita [facility] POCT-GLUCOSE METER 2022-08-15 07:43:00 Jerrell Villafuerte [facility] XR CHEST 1 VIEW PORTABLE / 2022-08-15 04:53:00 Waldo Figueroa [facility] MAGNESIUM 2022-08-15 04:22:00 Linus Saleh [facility] LACTIC ACID, VENOUS 2022-08-15 04:22:00 Linus Saleh [facility] HEPATIC FUNCTION PANEL 2022-08-15 04:22:00 Waldo Figueroa [facility] B-TYPE NATRIURETIC FACTOR 2022-08-15 04:22:00 Linus Saleh [facility] (BNP) [facility] BASIC METABOLIC PANEL 2022-08-15 04:22:00 Linus Saleh [facility] APTT 2022-08-15 04:22:00 Rupert Dean [facility] POCT-GLUCOSE METER 2022-08-14 20:41:00 Jerrell Villafuerte [facility] APTT 2022-08-14 20:04:00 Rupert Dean [facility] POCT-GLUCOSE METER 2022-08-14 17:15:00 Jerrell Villafuerte [facility] APTT 2022-08-14 14:07:00 Rupert Dean [facility] POCT-GLUCOSE METER 2022-08-14 12:22:00 [facility] PO[facility]SE [facility] 2022-08-14 07:56:00 Geri [facility] BASIC METABOLIC PANEL 2022-08-14 06:03:[address] [facility] CBC (HEMOGRAM ONLY) 2022-08-14 06:03:00 [facility] HEPATIC FUNCTION PANEL 2022-08-14 06:03:00 [facility] APTT 2022-08-14 06:03:00 Rupert Dean [facility] XR CHEST 1 VIEW PORTABLE / 2022-08-14 05:26:00 Waldo Figueroa [facility] VANCOMYCIN LEVEL, TROUGH 2022-08-13 23:45:00 Waldo Figueroa I [facility] APTT 2022-08-13 23:45:00 Rupert Dean [facility] POCT-GLUCOSE METER 2022-08-13 21:09:00 Jerrell Villafuerte [facility] APTT 2022-08-13 16:59:00 Rupert Dean [facility] US ABDOMEN COMPLETE 2022-08-13 13:03:00 Andrea Groves [facility] US PELVIS LIMITED 2022-08-13 12:53:[address] [facility] POCT-GLUCOSE METER 2022-08-13 11:07:[address] [facility] APTT 2022-08-13 09:29:00 Rupert Dean [facility] POCT-GLUCOSE METER 2022-08-13 08:07:[address] [facility] BASIC METABOLIC PANEL 2022-08-13 03:29:00 Carolina [facility] CBC (HEMOGRAM ONLY) 2022-08-13 03:29:00 [facility] HEPATIC FUNCTION PANEL 2022-08-13 03:29:00 [facility] T SPOT TB 2022-08-13 03:29:00 Brad [facility] APTT 2022-08-13 03:29:00 Rupert Dean [facility] MAGNESIUM 2022-08-13 03:29:00 Andrea Groves [facility] POCT-GLUCOSE METER 2022-08-12 21:19:[address] [facility] APTT 2022-08-12 21:17:00 Rupert Dean [facility] POCT-GLUCOSE METER 2022-08-12 17:50:[address] [facility] BASIC METABOLIC PANEL 2022-08-12 17:44:00 Brad [facility] 2D ECHO W/ DOPPLER 2022-08-12 16:57:41 Gaviota [facility] (CW/PW/COLOR) [facility] HIGH SENSITIVITY TROPONIN 2022-08-12 15:40:00 Gaviota [facility]inas [facility] APTT 2022-08-12 14:06:00 Rupert Dean [facility] POCT-GLUCOSE METER 2022-08-12 11:21:00 [facility] 1 VIEW PORTABLE / 2022-08-12 08:50:00 Carolina [facility] POCT-GLUCOSE METER 2022-08-12 08:03:00 [facility] SPUTUM CULTURE + GRAM 2022-08-12 05:55:00 Andrea Groves [facility] DRUG TEST, GENERAL 2022-08-12 05:32:00 Javier Yanez [facility] TOXICOLOGY, [facility] BASIC METABOLIC PANEL 2022-08-12 04:15:00 aCrolina [facility] CBC (HEMOGRAM ONLY) 2022-08-12 04:15:00 [facility] HEPATIC FUNCTION PANEL 2022-08-12 04:15:00 [facility] HIGH SENSITIVITY TROPONIN 2022-08-12 04:15:00 Javier Yanez [facility] APTT 2022-08-12 04:15:00 Rupert Dean [facility] MAGNESIUM 2022-08-12 04:15:00 Andrea Groves [facility] MRSA SCREEN 2022-08-11 23:32:00 Hotze, [facility] STREP PNEUMONIAE ANTIGEN 2022-08-11 23:26:00 Hotze, [facility] LEGIONELLA ANTIGEN, URINE 2022-08-11 23:25:00 Dee Dee [facility] HIGH SENSITIVITY TROPONIN 2022-08-11 23:15:00 Javier Yanez [facility] LACTIC ACID, VENOUS 2022-08-11 23:15:00 Javier Yanez [facility] APTT 2022-08-11 23:15:00 Javier Yanez [facility] BLOOD GAS, VENOUS 2022-08-11 23:15:00 [facility] HEMOGLOBIN A1C 2022-08-11 23:15:00 Andrea Groves [facility] BLOOD CULTURE 2022-08-11 23:14:00 Andrea Groves [facility] ECG 12-LEAD 2022-08-11 23:01:57 Javier Yanez [facility] ECG 12-LEAD 2022-08-11 23:01:57 Unknown, Hl7 Doctor [facility] CT CHEST WITHOUT IV 2022-08-11 21:34:[address] [facility] BRAIN WITHOUT IV 2022-08-11 21:34:00 [facility] LACTIC ACID, VENOUS 2022-08-11 21:03:00 Javier Yanez [facility] PROCALCITONIN 2022-08-11 21:03:00 Javier Yanez [facility] APTT 2022-08-11 21:03:[address] [facility] TSH/FREE T4 IF INDICATED 2022-08-11 21:03:00 Javier Yanez [facility] HEPATITIS PANEL, ACUTE 2022-08-11 21:03:00 Andrea Groves [facility] CBC W/PLT COUNT & AUTO 2022-08-11 19:51:00 Nest[facility] BASIC METABOLIC PANEL 2022-08-11 19:51:00 [facility] HIGH SENSITIVITY TROPONIN 2022-08-11 19:51:00 Nestor [facility] B-TYPE NATRIURETIC FACTOR 2022-08-11 19:51:00 [facility] (BNP) [facility] HEPATIC FUNCTION PANEL 2022-08-11 19:51:00 Javier Yanez [facility] MAGNESIUM 2022-08-11 19:51:00 Javier Yanez [facility] LIPID PANEL 2022-08-11 19:51:00 Andrea Groves [facility] CBC W/PLT COUNT & AUTO 2022-08-11 19:51:00 Nestor [facility] (CELLAVISION MANUAL DIFF) 2022-08-11 19:51:00 Nestor [facility] VASCULAR DIAGRAM -SCAN 2022-08-11 00:00:00 Provider, Default [facility] Plan of Care Planned Activity Planned Date Details Comments Source Future Scheduled 2023-08-[address] [facility] Test 00:00[facility]00 [facility] Scre[facility] (12+) [code = Tobacco Cessation Counseling and Screening (12+)] Future Scheduled 2023-01-[address] [facility] Test 00:00:00 (Season Ended) [code = [facility] INFLUENZA VACCINE (Season Ended)] Future Scheduled 2022-11-01 [facility] 02:00:11 malignant neoplasm of colon (procedure) [code = 818624379] Future Scheduled 2022-11-01 [facility] Test 02:00:11 malignant neoplasm of colon (procedure) [code = 942205825] Future Scheduled 2022-11-01 [facility] Test 02:00:11 malignant neoplasm of colon (procedure) [code = 701119824] Future Scheduled 2022-11-01 COVID-19 VACCINE (#1) [facility] Test 02:00:11 [code = COVID-19 VACCINE (#1)] Future Scheduled 2022-11-01 65[facility] 02:00:11 VACCINE (1 - PCV) [code = 65+ PNEUMOCOCCAL VACCINE (1 - PCV)] Future Scheduled 2022-11-01 [facility]:11 (procedure) [code = 619933212] Future Scheduled 2022-11-01 [facility]ening for [facility] [facility] 02:00:11 malignant neoplasm of colon (procedure) [code = 063848686] Future Scheduled 2022-11-01 [facility] 02:00:11 malignant neoplasm of colon (procedure) [code = 873320699] Future Scheduled 2022-11-01 SHINGLES VACCINES ([facility]:11 of 2) [code = SHINGLES VACCINES (1 of 2)] Future Scheduled 2022-11-01 INFLUENZA VACCINE [facility] 02:00:11 [code = INFLUENZA VACCINE] Future Scheduled 2022-08-[address] [facility] 00[facility]00 [facility] (procedure) [code = 88981922] Future Scheduled 2022-05-[address] [facility] Test 00:00:00 (12+) [code = Medical Center DEPRESSION SCREENING (12+)] Future Scheduled 2022-05-24 FALLS RISK SCREENING [facility] Test 00:00:00 [code = FALLS RISK Medical C enter SCREENING] Future Scheduled 2014-08-[address] [facility] Test 00:00:00 WELLNESS (YEAR 2 or Medical Center FIRST YEAR if no IPPE) [code = MEDICARE ANNUAL WELLNESS (YEAR 2 or FIRST YEAR if no IPPE)] Future Scheduled 1998 SHINGLES VACCINES ([address] [facility] Test 00:00:00 of 2) [code = SHINGLES Medic al Center VACCINES (1 of 2)] Future Scheduled 1967-08-27 DTAP/TDAP/TD [facility]ACCINES [facility] 00:00:00 (1 - Tdap) [code = Medical C enter DTAP/TDAP/TD VACCINES (1 - Tdap)] Future Scheduled 1958 DIABETIC EYE EXAM [facility] Test 00:00:00 [code = DIABETIC EYE Medical Center EXAM] Future Scheduled [address] [facility] 00:[facility] examination Medical Center (regime/therapy) [code = 557651633] Future Scheduled 1958 Urine screening for [facility] Test 00:00:00 protein (procedure) Medical Center [code = 742152307] Future Scheduled 1954 PNEUMOCOCCAL 65+ YRS [facility] Test 00:00:00 (1 - PCV) [code = Medical Ce nter PNEUMOCOCCAL 65+ YRS (1 - PCV)] Future Scheduled 1949-02-25 COVID-19 VACCINE (#1) [facility] 00:00:00 [code = COVID-[address] VACCINE (#1)] Future Scheduled [address] [facility] Test 00:00:00 (combo) [code = CT Medical C enter Colonography (combo)] Future Scheduled [address] [facility] Test 00:00:00 malignant neoplasm of Medica l Center colon (procedure) [code = 818643549] Future Scheduled [address] [facility] Test 00:00:00 malignant neoplasm of [facility] Center colon (procedure) [code = 416947012] Future Scheduled [address] [facility] Test 00:00:00 malignant neoplasm of [facility]ica [facility] Center colon (procedure) [code = 467068686] Future Scheduled [address] [facility] Test 00:00:00 malignant neoplasm of Medica l Center colon (procedure) [code = 969098521] Future Scheduled 1950 Sigmoidoscopy [code [facility]oscopy] Medical Cente r Encounters Start End Encounter Admission Attending Care Care Encounter Source Date/Time Date/Time Type Type Clinicians Facility Department ID 2022-08-11 Hospital ER [facility] Cardiology [id number] 00:00[facility]00 Encounter [facility] 2022-10-26 2022-10-26 Outpatient GEOVANNY PÉREZ [facility] [id number] SLE 07:59:06 23:59:00 MORALES 2022-10-26 2022-10-26 Outpatient GEOVANNY RUDD [facility] [id number] SLE 08:35:25 08:35:25 DONITA 2022-10-20 2022-10-20 Orders Linus Saleh 1.2.840.1 [id number] Methodi 00:00:00 00:00:00 Only Jose Maria 83699.1.[address] 3.430.2.7 Hospit a .3.238339 l .8 2022-10-14 2022-10-14 Office Linus Saleh 1.2.840.1 [id number] Methodi 09:20:00 10:43:55 Visit Jose Maria [address]8220.1.[address] 3.430.2.7 Hospit a .3.535334 l .8 2022-10-14 2022-10-14 Outpatient [facility] [id number] [place] 00:00:00 00:00:[address] 2022-10-14 2022-10-14 Outpatient LINUS SALEH [facility] [id number] [place] 00:00:00 00:00:[address] 2022-10-14 2022-10-14 Travel 1.2.840.1 1.2.613.608 [id number] Methodi 00:00:00 00:00:[address] 3.430.2.7 0.2.7.3.698 Ho spita .3.236541 084.8 l .8 2022-10-08 2022-10-08 [facility] [id number] [facility] 00:00:00 00:00:00 2022-09-30 2022-09-30 Telephone Mayra, 1.2.840.1 [id number] Methodi 00:00:00 00:00:00 [address]de [address] 3.430.2.7 Hospit a .3.734692 l .8 2022-09-28 2022-09-28 Office SalehRean 1.2.840.1 [id number] Methodi 10:00:00 11:00:28 Visit Jose Maria 06362.1.[address] 3.430.2.7 Hospit a .3.471437 l .8 2022-09-28 2022-09-28 Outpatient SALEHLINUS ALVARES [facility] [id number] [place] 00:00:00 00:00:[address] 2022-09-28 2022-09-28 Travel 1.2.840.1 1.2.324.825 [id number] Methodi 00:00:00 00:00:[address] 3.430.2.7 0.2.7.3.698 Ho spita .3.727268 084.8 l .8 2022-09-14 2022-09-14 Outpatient JESSE PENALOZA SLE [id number] [facility] 00:00:00 00:00:00 JOAQUIN 2022-09-14 2022-09-14 Travel 1.2.840.1 1.2.367.466 [id number] Methodi 00:00:00 00:00:[address] 3.430.2.7 0.2.7.3.698 spita .3.421928 084.8 l .8 2022-09-07 2022-09-07 Outpatient JESSE PENALOZA [facility] [id number] SLE 00:00:00 00:00:00 [facility] 2022-08-11 2022-09-02 Inpatient ER JERRELL VILLAFUERTE [facility] Cardiology 20 [id number] SLE 18:56:00 10:40:00 2022-08-25 2022-08-25 Outpatient JESSE PENALOZA [facility] [id number] SLE 00:00:00 00:00:00 [facility] 2022-08-24 2022-08-24 Surgery Brady Juarez [facility] [id number] 07:30:00 18:01:00 R [facility] 2022-08-24 2022-08-24 Anesthesia Teresa Aubrey Gopi [facility] [id number] [facility] St 07:12:00 14:26:00 Event Basilio Ryan [facility] 2022-08-18 2022-08-18 Surgery Linus Saleh [facility] [id number] 11:50:00 13:56:00 A [facility] 2022-08-11 2022-08-11 Orders [facility] [id number] 00:00:00 00:00:00 Only [facility] 2022-08-11 2022-08-11 Travel [facility] [id number] [facility] St 00:00:00 00:00:00 [facility] Results Test Description Test Time Test Comments Results Result [facility] e Comments XR CHEST 2 VIEWS 2022-10-26 08:50:54 [facility] 1950 Sex: M Chest PA and lateralCOMPARISON STUDY: 08/27/2022History provided: Postop evaluationHeart size within normal limits. Prior sternotomy. Lungs free of activedisease and vascularity normal. Valvular prosthesis in place. MISCELLANEOUS LAB ORDER 2022-09-14 12:47:12 Test Item Value Reference Range Interpretation Comme nts SCAN RESULT (test code = 2969154) JESSICA See scanned report.MISCELLANEOUS LAB [id number] 10:19:53 Test Item Value Reference Range Interpretation Comments SCAN RESULT (test code = 8694928) See attachment TISSUE [id number] 17:02:15Surgical Pathology Report Case: [id number] Authorizing Provider: Brady Juarez MD Collected: 08/24/2022 12:50 PM Ordering Location: [facility] CV Recovery Room 2 Received: 08/24/2022 03:01 PM Pathologist: Joanne Moody MD Specimen: Aortic Valve, AORTIC VALVE LEAFLET A. 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 A. Aortic ValveReceived fresh, labeled with the patient's name, MRN number and "aortic valve leaflet" is a tissue specimen that consists of multiple salcido-yellow leaflets aggregating to 5.0 x 2.0 x 0.5 cm. Focally calcification is noted. No vegetations or fenestrations are grossly seen. Cell Installer sections are submitted in A1 following decalcification. CRISTI Zimmermanicroscopic examination is performed and the salient findings are incorporated into the final diagnosis and comment sections. [facility], Department of Pathology, [address] [place] [address], [facility], [facility] of [facility], [address] [place] [address], [facility], Department of Pathology, [address] [place] [address], ZWQ-Glucose [id number] 08:15:46 Test Item Value Reference Range Interpretation Comments POC-Glucose Meter (test 112 mg/dL 70-110 H : TE STED AT [facility] code = 1538) [address] [facility], 770 30: Hr Director/Techni maikol ID = [id number] for Faustino Gan ie Lab Interpretation (test Abnormal code = 27113-7) [facility] [id number] 08:15:46 Test Item Value Reference Range Interpretation Comments POC-GLUCOSE METER 112 mg/dL 70-110 H : TESTED A T [facility] 6720 (BEAKER) (test code [facility], = 1538) [address]: Hr Director/Techni maikol ID = [id number] for Laura Sahu HEPATIC FUNCTION [id number] 06:07:13 Test Item Value Reference Range Interpretation Comments TOTAL PROTEIN (BEAKER) (test code = 6.5 gm/dL 6.0-8.3 770) ALBUMIN (BEAKER) (test code = 1145) 2.9 g/dL 3.5-5.0 L BILIRUBIN TOTAL (BEAKER) (test code 0.9 mg/dL 0.2-1.2 = 377) BILIRUBIN DIRECT (BEAKER) (test 0.4 mg/dL 0.1-0.5 code = 706) ALKALINE PHOSPHATASE (BEAKER) (test 86 U/L 40-150 code = 346) AST (SGOT) (BEAKER) (test code = 23 U/L 5-34 353) ALT (SGPT) (BEAKER) (test code = 51 U/L 6-55 347) Hr Director ID - [id number] 06:07:12 Test Item Value Reference Range Interpretation Comments MAGNESIUM (BEAKER) (test code = 2.0 mg/dL 1.6-2.6 627) Hr Director ID - DBBASIC METABOLIC [id number] 06:07:11 Test Item Value Reference Range Interpretation Comments SODIUM (BEAKER) 133 meq/L 136-145 L (test code = 381) POTASSIUM 4.3 meq/L 3.5-5.1 (BEAKER) (test code = 379) CHLORIDE (BEAKER) 99 meq/L 98-107 (test code = 382) CO2 (BEAKER) 23 meq/L 22-29 (test code = 355) BLOOD UREA 18 mg/dL 7-21 NITROGEN (BEAKER) (test code = 354) CREATININE 1.37 mg/dL 0.57-1.25 H (BEAKER) (test code = 358) GLUCOSE RANDOM 104 mg/dL 70-105 (BEAKER) (test code = 652) CALCIUM (BEAKER) 8.6 mg/dL 8.4-10.2 (test code = 697) EGFR (BEAKER) 55 Interpretatio n of eGFR (test code = mL/min/1.73 values Stage De scription 1092) sq m Result G1 Effie l or high >=90 G2 Mildly decreased 60-89 G3a Mildl y to moderately 45-5 9 G3b Moderately to s everely 30-44 G4 Severl y decreased 15-29 G5 Kidney failure <15Reported eGF R is based on the CKD-EPI 2020 equation that d oes not use a race coefficientEsti mated GFR is not as accur ate as Creatinine Jessica phil in predicting glom erular filtration rate . Estimated GFR is not appl icable for dialysis patien ts Hr Director ID - [id number] (HEMOGRAM ONLY)2022-09-02 05:34:18 Test Item Value Reference Range Interpretation Comments WHITE BLOOD CELL COUNT (BEAKER) 11.9 K/ L 3.5-10.5 H (test code = 775) RED BLOOD CELL COUNT (BEAKER) 3.35 M/ L 4.63-6.08 L (test code = 761) HEMOGLOBIN (BEAKER) (test code = 10.0 GM/DL 13.7-17.5 L 410) HEMATOCRIT (BEAKER) (test code = 30.7 % 40.1-51.0 L 411) MEAN CORPUSCULAR VOLUME (BEAKER) 92 fL 79-92 (test code = 753) MEAN CORPUSCULAR HEMOGLOBIN 29.9 pg 25.7-32.2 (BEAKER) (test code = 751) MEAN CORPUSCULAR HEMOGLOBIN CONC 32.6 GM/DL 32.3-36.5 (BEAKER) (test code = 752) RED CELL DISTRIBUTION WIDTH 14.6 % 11.6-14.4 H (BEAKER) (test code = 412) PLATELET COUNT (BEAKER) (test 252 K/CU MM 150-450 code = 756) MEAN PLATELET VOLUME (BEAKER) 9.8 fL 9.4-12.4 (test code = 754) NUCLEATED RED BLOOD CELLS 0 /100 WBC 0-0 (BEAKER) (test code = 413) POCT-GLUCOSE [id number] 21:21:00 Test Item Value Reference Range Interpretation Comments POC-GLUCOSE METER 150 mg/dL 70-110 H : TESTED A T [facility] 6720 (BEAKER) (test code = [facility], [facility]) [address]: Hr Director/Techni maikol ID = [id number] for FOREST BERMAN POCT-GLUCOSE [id number] 17:19:25 Test Item Value Reference Range Interpretation Comments POC-GLUCOSE METER 119 mg/dL 70-110 H : TESTED A T [facility] 6720 (BEAKER) (test code = [facility], [facility]8) [address]: Hr Director/Techni maikol ID = [id number] for ANDREI HN, ADI POCT-GLUCOSE [id number] 12:47:58 Test Item Value Reference Range Interpretation Comments POC-GLUCOSE METER 147 mg/dL 70-110 H : TESTED A T [facility] 6720 (BEAKER) (test code = [facility], 1538) [address]: Hr Director/Techni maikol ID = [id number] for ANDREI HN, ADI POCT-GLUCOSE [id number] 07:23:02 Test Item Value Reference Range Interpretation Comments POC-GLUCOSE METER 109 mg/dL 70-110 : TESTED A T [facility] 6720 (BEAKER) (test code = [facility], 1538) [address]: Hr Director/Techni maikol ID = [id number] for ANDREI HN, ADI [id number] 05:52:46 Test Item Value Reference Range Interpretation Comments MAGNESIUM (BEAKER) (test code = 1.8 mg/dL 1.6-2.6 627) Hr Director ID - DBHEPATIC FUNCTION [id number] 05:52:46 Test Item Value Reference Range Interpretation Comments TOTAL PROTEIN (BEAKER) (test code = 6.2 gm/dL 6.0-8.3 770) ALBUMIN (BEAKER) (test code = 1145) 2.8 g/dL 3.5-5.0 L BILIRUBIN TOTAL (BEAKER) (test code 0.9 mg/dL 0.2-1.2 = 377) BILIRUBIN DIRECT (BEAKER) (test 0.4 mg/dL 0.1-0.5 code = 706) ALKALINE PHOSPHATASE (BEAKER) (test 96 U/L 40-150 code = 346) AST (SGOT) (BEAKER) (test code = 30 U/L 5-34 353) ALT (SGPT) (BEAKER) (test code = 71 U/L 6-55 H 347) Hr Director [facility] - [facility]OLIC [id number] 05:52:45 Test Item Value Reference Range Interpretation Comments SODIUM (BEAKER) 134 meq/L 136-145 L (test code = 381) POTASSIUM 4.2 meq/L 3.5-5.1 (BEAKER) (test code = 379) CHLORIDE (BEAKER) 99 meq/L 98-107 (test code = 382) CO2 (BEAKER) 26 meq/L 22-29 (test code = 355) BLOOD UREA 19 mg/dL 7-21 NITROGEN (BEAKER) (test code = 354) CREATININE 1.17 mg/dL 0.57-1.25 (BEAKER) (test code = 358) GLUCOSE RANDOM 109 mg/dL 70-105 H (BEAKER) (test code = 652) CALCIUM (BEAKER) 8.3 mg/dL 8.4-10.2 L (test code = 697) EGFR (BEAKER) 66 Interpretatio n of eGFR (test code = mL/min/1.73 values Stage De scription 1092) sq m Result G1 Effie l or high >=90 G2 Mildly decreased 60-89 G3a Mildl y to moderately 45-5 9 G3b Moderately to s everely 30-44 G4 Severl y decreased 15-29 G5 Kidney failure <15Reported eGF R is based on the CKD-EPI 2020 equation that d oes not use a race coefficientEsti mated GFR is not as accur ate as Creatinine Jessica phil in predicting glom erular filtration rate . Estimated GFR is not appl icable for dialysis patien ts Hr Director ID - [id number] (HEMOGRAM ONLY)2022-09-01 05:36:57 Test Item Value Reference Range Interpretation Comments WHITE BLOOD CELL COUNT (BEAKER) 12.0 K/ L 3.5-10.5 H (test code = 775) RED BLOOD CELL COUNT (BEAKER) 3.45 M/ L 4.63-6.08 L (test code = 761) HEMOGLOBIN (BEAKER) (test code = 10.3 GM/DL 13.7-17.5 L 410) HEMATOCRIT (BEAKER) (test code = 31.5 % 40.1-51.0 L 411) MEAN CORPUSCULAR VOLUME (BEAKER) 91 fL 79-92 (test code = 753) MEAN CORPUSCULAR HEMOGLOBIN 29.9 pg 25.7-32.2 (BEAKER) (test code = 751) MEAN CORPUSCULAR HEMOGLOBIN CONC 32.7 GM/DL 32.3-36.5 (BEAKER) (test code = 752) RED CELL DISTRIBUTION WIDTH 14.6 % 11.6-14.4 H (BEAKER) (test code = 412) PLATELET COUNT (BEAKER) (test 252 K/CU MM 150-450 code = 756) MEAN PLATELET VOLUME (BEAKER) 9.6 fL 9.4-12.4 (test code = 754) NUCLEATED RED BLOOD CELLS 0 /100 WBC 0-0 (BEAKER) (test code = 413) POCT-GLUCOSE [id number] 17:32:06 Test Item Value Reference Range Interpretation Comments POC-GLUCOSE METER 151 mg/dL 70-110 H : TESTED A T [facility] 6720 (BEAKER) (test code = BHAVNA Gutiérrez [facility], 1538) [address]: Hr Director/Techni maikol ID = [id number] for ADI CHACON HEPATIC FUNCTION [id number] 13:47:34 Test Item Value Reference Range Interpretation Comments TOTAL PROTEIN (BEAKER) (test code = 6.3 gm/dL 6.0-8.3 770) ALBUMIN (BEAKER) (test code = 1145) 2.8 g/dL 3.5-5.0 L BILIRUBIN TOTAL (BEAKER) (test code 0.9 mg/dL 0.2-1.2 = 377) BILIRUBIN DIRECT (BEAKER) (test 0.4 mg/dL 0.1-0.5 code = 706) ALKALINE PHOSPHATASE (BEAKER) (test 115 U/L 40-150 code = 346) AST (SGOT) (BEAKER) (test code = 55 U/L 5-34 H 353) ALT (SGPT) (BEAKER) (test code = 113 U/L 6-55 H 347) Hr Director ID - [id number] 13:47:33 Test Item Value Reference Range Interpretation Comments MAGNESIUM (BEAKER) (test code = 1.9 mg/dL 1.6-2.6 627) Hr Director ID - JSPOCT-GLUCOSE [id number] 12:42:11 Test Item Value Reference Range Interpretation Comments POC-GLUCOSE METER 136 mg/dL 70-110 H : TESTED A T [facility] 6720 (BEAKER) (test code = [facility], 1538) 87598: Hr Director/Techni maikol ID = [id number] for ADI CHACON POCT-GLUCOSE [id number] 07:29:38 Test Item Value Reference Range Interpretation Comments POC-GLUCOSE METER 104 mg/dL 70-110 : TESTED A T [facility] 6720 (BEAKER) (test code = [facility], 1538) 07821: Hr Director/Techni maikol ID = [id number] for ADI CHACON BASIC METABOLIC [id number] 07:07:41 Test Item Value Reference Range Interpretation Comments SODIUM (BEAKER) 135 meq/L 136-145 L (test code = 381) POTASSIUM 4.1 meq/L 3.5-5.1 (BEAKER) (test code = 379) CHLORIDE (BEAKER) 98 meq/L 98-107 (test code = 382) CO2 (BEAKER) 27 meq/L 22-29 (test code = 355) BLOOD UREA 20 mg/dL 7-21 NITROGEN (BEAKER) (test code = 354) CREATININE 1.08 mg/dL 0.57-1.25 (BEAKER) (test code = 358) GLUCOSE RANDOM 108 mg/dL 70-105 H (BEAKER) (test code = 652) CALCIUM (BEAKER) 8.3 mg/dL 8.4-10.2 L (test code = 697) EGFR (BEAKER) 73 Interpretatio n of eGFR (test code = mL/min/1.73 values Stage De scription 1092) sq m Result G1 Effie l or high >=90 G2 Mildly decreased 60-89 G3a Mildl y to moderately 45-5 9 G3b Moderately to s everely 30-44 G4 Severl y decreased 15-29 G5 Kidney failure <15Reported eGF R is based on the CKD-EPI 2020 equation that d oes not use a race coefficientEsti mated GFR is not as accur ate as Creatinine Jessica phil in predicting glom erular filtration rate . Estimated GFR is not appl icable for dialysis patien ts Hr Director ID - [id number] (HEMOGRAM ONLY)2022-08-31 05:47:14 Test Item Value Reference Range Interpretation Comments WHITE BLOOD CELL COUNT (BEAKER) 11.0 K/ L 3.5-10.5 H (test code = 775) RED BLOOD CELL COUNT (BEAKER) 3.46 M/ L 4.63-6.08 L (test code = 761) HEMOGLOBIN (BEAKER) (test code = 10.5 GM/DL 13.7-17.5 L 410) HEMATOCRIT (BEAKER) (test code = 32.2 % 40.1-51.0 L 411) MEAN CORPUSCULAR VOLUME (BEAKER) 93 fL 79-92 H (test code = 753) MEAN CORPUSCULAR HEMOGLOBIN 30.3 pg 25.7-32.2 (BEAKER) (test code = 751) MEAN CORPUSCULAR HEMOGLOBIN CONC 32.6 GM/DL 32.3-36.5 (BEAKER) (test code = 752) RED CELL DISTRIBUTION WIDTH 14.8 % 11.6-14.4 H (BEAKER) (test code = 412) PLATELET COUNT (BEAKER) (test 238 K/CU MM 150-450 code = 756) MEAN PLATELET VOLUME (BEAKER) 10.4 fL 9.4-12.4 (test code = 754) NUCLEATED RED BLOOD CELLS 0 /100 WBC 0-0 (BEAKER) (test code = 413) POCT-GLUCOSE [id number] 17:24:42 Test Item Value Reference Range Interpretation Comments POC-GLUCOSE METER 133 mg/dL 70-110 H : TESTED A T [facility] 6720 (BEAKER) (test code = [place] [facility] [place], 1538) [address]: Hr Director/Techni maikol ID = [id number] for Ga rcia, POCT-GLUCOSE [id number] 12:23:57 Test Item Value Reference Range Interpretation Comments POC-GLUCOSE METER 197 mg/dL 70-110 H : TESTED A T [facility] 6720 (BEAKER) (test code = [facility], 1538) 638[address]: Hr Director/Techni maikol ID = [id number] for Co rtez, Jeannie POCT-GLUCOSE [id number] 08:17:56 Test Item Value Reference Range Interpretation Comments POC-GLUCOSE METER 110 mg/dL 70-110 : TESTED A T [facility] 6720 (BEAKER) (test code = [facility], 1538) 70513: Hr Director/Techni maikol ID = [id number] for Co rtez, Pringle POCT-GLUCOSE [id number] 06:54:21 Test Item Value Reference Range Interpretation Comments POC-GLUCOSE METER 163 mg/dL 70-110 H : TESTED A T [facility] 6720 (BEAKER) (test code = [facility], 1538) 75149: Hr Director/Techni maikol ID = [id number] for PI TTS, VITALY HEPATIC FUNCTION [id number] 06:47:45 Test Item Value Reference Range Interpretation Comments TOTAL PROTEIN (BEAKER) (test code = 6.1 gm/dL 6.0-8.3 770) ALBUMIN (BEAKER) (test code = 1145) 2.8 g/dL 3.5-5.0 L BILIRUBIN TOTAL (BEAKER) (test code 0.9 mg/dL 0.2-1.2 = 377) BILIRUBIN DIRECT (BEAKER) (test 0.4 mg/dL 0.1-0.5 code = 706) ALKALINE PHOSPHATASE (BEAKER) (test 136 U/L 40-150 code = 346) AST (SGOT) (BEAKER) (test code = 72 U/L 5-34 H 353) ALT (SGPT) (BEAKER) (test code = 138 U/L 6-55 H 347) Hr Director ID - GENI GBASIC METABOLIC [id number] 06:47:44 Test Item Value Reference Range Interpretation Comments SODIUM (BEAKER) 137 meq/L 136-145 (test code = 381) POTASSIUM 4.2 meq/L 3.5-5.1 (BEAKER) (test code = 379) CHLORIDE (BEAKER) 103 meq/L 98-107 (test code = 382) CO2 (BEAKER) 25 meq/L 22-29 (test code = 355) BLOOD UREA 26 mg/dL 7-21 H NITROGEN (BEAKER) (test code = 354) CREATININE 1.08 mg/dL 0.57-1.25 (BEAKER) (test code = 358) GLUCOSE RANDOM 110 mg/dL 70-105 H (BEAKER) (test code = 652) CALCIUM (BEAKER) 8.3 mg/dL 8.4-10.2 L (test code = 697) EGFR (BEAKER) 73 Interpretatio n of eGFR (test code = mL/min/1.73 values Stage De scription 1092) sq m Result G1 Effie l or high >=90 G2 Mildly decreased 60-89 G3a Mildl y to moderately 45-5 9 G3b Moderately to s everely 30-44 G4 Sever ly decreased 15-29 G5 Kidney failure <15Repo rted eGFR is based on the CKD-EPI 2020 equation t hat does not use a race coefficientEsti mated GFR is not as accur ate as Creatinine Jessica villarreal in predicting glom erular filtration rate . Estimated GFR is not appl icable for dialysis patien ts Hr Director ID - GENI [id number] 06:47:44 Test Item Value Reference Range Interpretation Comments MAGNESIUM (BEAKER) (test code = 1.9 mg/dL 1.6-2.6 627) Hr Director ID - GENI GCBC (HEMOGRAM ONLY)2022-08-30 06:39:40 Test Item Value Reference Range Interpretation Comments WHITE BLOOD CELL COUNT 11.3 K/ L 3.5-10.5 H (BEAKER) (test code = 775) RED BLOOD CELL COUNT 3.31 M/ L 4.63-6.08 L (BEAKER) (test code = 761) HEMOGLOBIN (BEAKER) 10.1 GM/DL 13.7-17.5 L (test code = 410) HEMATOCRIT (BEAKER) 31.0 % 40.1-51.0 L (test code = 411) MEAN CORPUSCULAR 94 fL 79-92 H Discordant results VOLUME (BEAKER) (test compar ed to previous code = 753) results; clinic al correlation req uired MEAN CORPUSCULAR 30.5 pg 25.7-32.2 HEMOGLOBIN (BEAKER) (test code = 751) MEAN CORPUSCULAR 32.6 GM/DL 32.3-36.5 HEMOGLOBIN CONC (BEAKER) (test code = 752) RED CELL DISTRIBUTION 14.5 % 11.6-14.4 H WIDTH (BEAKER) (test code = 412) PLATELET COUNT 218 K/CU MM 150-450 (BEAKER) (test code = 756) MEAN PLATELET VOLUME 10.3 fL 9.4-12.4 (BEAKER) (test code = 754) NUCLEATED RED BLOOD 0 /100 WBC 0-0 CELLS (BEAKER) (test code = 413) POCT-GLUCOSE [id number] 19:58:44 Test Item Value Reference Range Interpretation Comments POC-GLUCOSE METER 159 mg/dL 70-110 H : [facility] (test code = [facility]) [id number]: Hr Director/Techni maikol ID = [id number] for PI TTS, VITALY POCT-GLUCOSE [id number] 17:28:51 Test Item Value Reference Range Interpretation Comments POC-GLUCOSE METER 116 mg/dL 70-110 H : TESTED A T [facility] (BEAKER) (test code = [facility], [facility]8) [id number]: Hr Director/Techni maikol ID = [id number] for Co rtez, Jeannie POCT-GLUCOSE [id number] 12:10:59 Test Item Value Reference Range Interpretation Comments POC-GLUCOSE METER 171 mg/dL 70-110 H : TESTED A T [facility] (BEAKER) (test code = [facility], 1538) [address]: Hr Director/Techni maikol ID = [id number] for Co rtez, Jeannie POCT-GLUCOSE [id number] 07:25:17 Test Item Value Reference Range Interpretation Comments POC-GLUCOSE METER 148 mg/dL 70-110 H : TESTED A T [facility] (BEAKER) (test code = [facility], 1538) [address]: Hr Director/Techni maikol ID = [id number] for Co Jeannie paulson HEPATIC FUNCTION [id number] 06:46:57 Test Item Value Reference Range Interpretation Comments TOTAL PROTEIN (BEAKER) (test code = 6.1 gm/dL 6.0-8.3 770) ALBUMIN (BEAKER) (test code = 1145) 2.8 g/dL 3.5-5.0 L BILIRUBIN TOTAL (BEAKER) (test code 0.9 mg/dL 0.2-1.2 = 377) BILIRUBIN DIRECT (BEAKER) (test 0.5 mg/dL 0.1-0.5 code = 706) ALKALINE PHOSPHATASE (BEAKER) (test 158 U/L 40-150 H code = 346) AST (SGOT) (BEAKER) (test code = 124 U/L 5-34 H 353) ALT (SGPT) (BEAKER) (test code = 184 U/L 6-55 H 347) Hr Director ID - [id number] 06:46:56 Test Item Value Reference Range Interpretation Comments MAGNESIUM (BEAKER) (test code = 2.0 mg/dL 1.6-2.6 627) Hr Director ID - MARCOBASIC METABOLIC [id number] 06:46:55 Test Item Value Reference Range Interpretation Comments SODIUM (BEAKER) 137 meq/L 136-145 (test code = 381) POTASSIUM 4.5 meq/L 3.5-5.1 (BEAKER) (test code = 379) CHLORIDE (BEAKER) 105 meq/L 98-107 (test code = 382) CO2 (BEAKER) 24 meq/L 22-29 (test code = 355) BLOOD UREA 31 mg/dL 7-21 H NITROGEN (BEAKER) (test code = 354) CREATININE 1.18 mg/dL 0.57-1.25 (BEAKER) (test code = 358) GLUCOSE RANDOM 118 mg/dL 70-105 H (BEAKER) (test code = 652) CALCIUM (BEAKER) 8.2 mg/dL 8.4-10.2 L (test code = 697) EGFR (BEAKER) 66 Interpretatio n of eGFR (test code = mL/min/1.73 values Stage De scription 1092) sq m Result G1 Effie l or high >=90 G2 Mildly decreased 60-89 G3a Mild ly to moderately 45-5 9 G3b Moderately to s everely 30-44 G4 Severl y decreased 15-29 G5 Kidney failure <15Reported eGF R is based on the CKD-EPI 2020 equation that d oes not use a race coefficientEsti mated GFR is not as accur ate as Creatinine Jessica phil in predicting glom erular filtration rate . Estimated GFR is not appl icable for dialysis patien ts Hr Director ID - MARCOCBC (HEMOGRAM ONLY)2022-08-29 06:29:10 Test Item Value Reference Range Interpretation Comments WHITE BLOOD CELL COUNT (BEAKER) 11.0 K/ L 3.5-10.5 H (test code = 775) RED BLOOD CELL COUNT (BEAKER) 3.10 M/ L 4.63-6.08 L (test code = 761) HEMOGLOBIN (BEAKER) (test code = 9.4 GM/DL 13.7-17.5 L 410) HEMATOCRIT (BEAKER) (test code = 28.0 % 40.1-51.0 L 411) MEAN CORPUSCULAR VOLUME (BEAKER) 90 fL 79-92 (test code = 753) MEAN CORPUSCULAR HEMOGLOBIN 30.3 pg 25.7-32.2 (BEAKER) (test code = 751) MEAN CORPUSCULAR HEMOGLOBIN CONC 33.6 GM/DL 32.3-36.5 (BEAKER) (test code = 752) RED CELL DISTRIBUTION WIDTH 14.5 % 11.6-14.4 H (BEAKER) (test code = 412) PLATELET COUNT (BEAKER) (test 197 K/CU MM 150-450 code = 756) MEAN PLATELET VOLUME (BEAKER) 10.7 fL 9.4-12.4 (test code = 754) NUCLEATED RED BLOOD CELLS 1 /100 WBC 0-0 H (BEAKER) (test code = 413) POCT-GLUCOSE [id number] 17:34:37 Test Item Value Reference Range Interpretation Comments POC-GLUCOSE METER 145 mg/dL 70-110 H : TESTED A T [facility] 6720 (BEAKER) (test code = BHAVNA Gutiérrez [facility], 1538) [address]: Hr Director/Techni maikol ID = [id number] for Yolanda Marx POCT-GLUCOSE [id number] 17:07:24 Test Item Value Reference Range Interpretation Comments POC-GLUCOSE METER 169 mg/dL 70-110 H : TESTED A T [facility] 6720 (BEAKER) (test code = BHAVNA Gutiérrez [place], 1538) [address]: Hr Director/Techni maikol ID = [id number] for Yolanda Marx POCT-GLUCOSE [id number] 17:07:17 Test Item Value Reference Range Interpretation Comments POC-GLUCOSE METER 116 mg/dL 70-110 H : TESTED A T [facility] 6720 (BEAKER) (test code = BHAVNA Gutiérrez [place], 1538) [address]: Hr Director/Techni maikol ID = [id number] for Yolanda Marx 2D Echo W/Doppler(CW/PW/Color)2022-08-28 16:13:58Ejection FractionSLE ECHO HEARTLAB [facility]ON [facility] FA[facility] (BNP)2022-08-28 14:35:14 Test Item Value Reference Range Interpretation Comments B-TYPE NATRIURETIC PEPTIDE (BEAKER) 909 pg/mL 0-100 H (test code = 700) Hr Director ID - BSLACTIC ACID, [id number] 14:04:07 Test Item Value Reference Range Interpretation Comments LACTATE BLOOD VENOUS (2) (BEAKER) 2.68 mmol/L 0.50-2.00 H (test code = 2872) Hr Director ID - MARCOHEPATIC FUNCTION [id number] 08:21:33 Test Item Value Reference Range Interpretation Comments TOTAL PROTEIN (BEAKER) (test code = 5.6 gm/dL 6.0-8.3 L 770) ALBUMIN (BEAKER) (test code = 1145) 2.7 g/dL 3.5-5.0 L BILIRUBIN TOTAL (BEAKER) (test code 0.7 mg/dL 0.2-1.2 = 377) BILIRUBIN DIRECT (BEAKER) (test 0.5 mg/dL 0.1-0.5 code = 706) ALKALINE PHOSPHATASE (BEAKER) (test 114 U/L 40-150 code = 346) AST (SGOT) (BEAKER) (test code = 122 U/L 5-34 H 353) ALT (SGPT) (BEAKER) (test code = 137 U/L 6-55 H 347) Hr Director ID - BSBASIC METABOLIC [id number] 08:21:32 Test Item Value Reference Range Interpretation Comments SODIUM (BEAKER) 136 meq/L 136-145 (test code = 381) POTASSIUM 4.0 meq/L 3.5-5.1 (BEAKER) (test code = 379) CHLORIDE (BEAKER) 105 meq/L 98-107 (test code = 382) CO2 (BEAKER) 21 meq/L 22-29 L (test code = 355) BLOOD UREA 31 mg/dL 7-21 H NITROGEN (BEAKER) (test code = 354) CREATININE 1.33 mg/dL 0.57-1.25 H (BEAKER) (test code = 358) GLUCOSE RANDOM 109 mg/dL 70-105 H (BEAKER) (test code = 652) CALCIUM (BEAKER) 8.0 mg/dL 8.4-10.2 L (test code = 697) EGFR (BEAKER) 57 Interpretatio n of eGFR (test code = mL/min/1.73 values Stage De scription 1092) sq m Result G1 Effie l or high >=90 G2 Mildly decreased 60-89 G3a Mildl y to moderately 45-5 9 G3b Moderately to s everely 30-44 G4 Severl y decreased 15-29 G5 Kidney failure <15Reported eGF R is based on the CKD-EPI 2020 equation that d oes not use a race coefficientEsti mated GFR is not as accur ate as Creatinine Jessica phil in predicting glom erular filtration rate . Estimated GFR is not appl icable for dialysis patien ts Hr Director ID - [id number] 08:21:32 Test Item Value Reference Range Interpretation Comments MAGNESIUM (BEAKER) (test code = 2.0 mg/dL 1.6-2.6 627) Hr Director ID - BSCBC (HEMOGRAM ONLY)2022-08-28 05:47:54 Test Item Value Reference Range Interpretation Comments WHITE BLOOD CELL COUNT (BEAKER) 12.1 K/ L 3.5-10.5 H (test code = 775) RED BLOOD CELL COUNT (BEAKER) 2.81 M/ L 4.63-6.08 L (test code = 761) HEMOGLOBIN (BEAKER) (test code = 8.5 GM/DL 13.7-17.5 L 410) HEMATOCRIT (BEAKER) (test code = 25.9 % 40.1-51.0 L 411) MEAN CORPUSCULAR VOLUME (BEAKER) 92 fL 79-92 (test code = 753) MEAN CORPUSCULAR HEMOGLOBIN 30.2 pg 25.7-32.2 (BEAKER) (test code = 751) MEAN CORPUSCULAR HEMOGLOBIN CONC 32.8 GM/DL 32.3-36.5 (BEAKER) (test code = 752) RED CELL DISTRIBUTION WIDTH 14.5 % 11.6-14.4 H (BEAKER) (test code = 412) PLATELET COUNT (BEAKER) (test 156 K/CU MM 150-450 code = 756) MEAN PLATELET VOLUME (BEAKER) 11.8 fL 9.4-12.4 (test code = 754) NUCLEATED RED BLOOD CELLS 0 /100 WBC 0-0 (BEAKER) (test code = 413) RAD, CHEST, 1 VIEW, NON [id number] 22:52:00Reason for exam:->chest tube removalShould this be performed at the bedside?->Yes [facility] 1950 Sex: MFINAL REPORT Chest, 1 view, 08/27/2022 3:00 PM. History: Chest 2 removal. Comparison: X-ray from today. Discussion: The cardiac silhouette is prominent but stable. Bibasilar hazy opacities are present, slightly increased on the right. 2 left-sided chest tubes remain in place. There is no pneumothorax. Skinfold overlies the left lateral chest. Median sternotomy wires are present. IMPRESSION: Slightly increased right basilar opacity. No evidence of pneumothorax.. Signed: Aubrey HandyMDReport Verified Date/Time: 08/27/2022 22:52:45 -GLUCOSE [id number] 21:10:23 Test Item Value Reference Range Interpretation Comments POC-GLUCOSE METER 145 mg/dL 70-110 H : TESTED A T [facility] 6720 (BEAKER) (test code = BHAVNA Gutiérrez [facility], 1538) [address]: Hr Director/Techni maikol ID = [id number] for GAEL ALVA BASIC METABOLIC [id number] 17:49:06 Test Item Value Reference Range Interpretation Comments SODIUM (BEAKER) 136 meq/L 136-145 (test code = 381) POTASSIUM 4.6 meq/L 3.5-5.1 (BEAKER) (test code = 379) CHLORIDE (BEAKER) 104 meq/L 98-107 (test code = 382) CO2 (BEAKER) 20 meq/L 22-29 L (test code = 355) BLOOD UREA 28 mg/dL 7-21 H NITROGEN (BEAKER) (test code = 354) CREATININE 1.35 mg/dL 0.57-1.25 H (BEAKER) (test code = 358) GLUCOSE RANDOM 141 mg/dL 70-105 H (BEAKER) (test code = 652) CALCIUM (BEAKER) 8.3 mg/dL 8.4-10.2 L (test code = 697) EGFR (BEAKER) 56 Interpretati on of eGFR (test code = mL/min/1.73 values Stage De scription 1092) sq m Result G1 Effie l or high >=90 G2 Mildly decreased 60-89 G3a Mildl y to moderately 45-5 9 G3b Moderately to s everely 30-44 G4 Severl y decreased 15-29 G5 Kidney failure <15Reported eGF R is based on the CKD-EPI 202 equation that d oes not use a race coefficientEsti mated GFR is not as accur ate as Creatinine Jessica phil in predicting glom erular filtration rate . Estimated GFR is not appl icable for dialysis patien ts Hr Director ID - BSOperator ID - BSPOCT-GLUCOSE [id number] 17:48:28 Test Item Value Reference Range Interpretation Comments POC-GLUCOSE METER 146 mg/dL 70-110 H : TESTED A T [facility] 6720 (NEO) (test code = BHAVNA Gutiérrez [facility], 1538) [address]: Hr Director/Techni maikol ID = [id number] for Co rtez, Jeannie POCT-GLUCOSE [id number] 12:51:28 Test Item Value Reference Range Interpretation Comments POC-GLUCOSE METER 201 mg/dL 70-110 H : TESTED A T [facility] 6720 [facility] (test code = BHAVNA Gutiérrez [facility], 1538) [address]: Hr Director/Techni maikol ID = [id number] for Co rtez, Jeannie POCT-GLUCOSE [id number] 07:50:17 Test Item Value Reference Range Interpretation Comments POC-GLUCOSE METER 147 mg/dL 70-110 H : Notified RN/MD: (NEO) (test code = TESTED AT [facility] 6720 1538) [facility], [address]: Hr Director/Techni maikol ID = [id number] for Belkys Samantha hutson RAD, CHEST, 1 VIEW, NON [id number] 07:18:00Reason for exam:->Post OpShould this be performed at the bedside?->Yes [facility] : 1950 Sex: MFINAL REPORT RAD, CHEST, 1 VIEW, NON DEPT INDICATION: Post Op COMPARISON: Prior day's exam FINDINGS: Portable frontal view of the chest. IMPRESSION: Support Lines: Raymond-Robert catheter removed with remaining sheath. Otherwise stable support apparatus. Lungs and pleura: Unchanged airspace and pleural opacities, greater on the left. No pneumothorax.Heart and mediastinum: Stable contours. Additional findings: None. Signed: Adelfo Sosaeport Verified Date/Time: 08/27/2022 07:18:19 HEPATIC FUNCTION [id number] 03:37:31 Test Item Value Reference Range Interpretation Comments TOTAL PROTEIN (BEAKER) (test code = 5.7 gm/dL 6.0-8.3 L 770) ALBUMIN (BEAKER) (test code = 1145) 2.9 g/dL 3.5-5.0 L BILIRUBIN TOTAL (BEAKER) (test code 1.1 mg/dL 0.2-1.2 = 377) BILIRUBIN DIRECT (BEAKER) (test 0.6 mg/dL 0.1-0.5 H code = 706) ALKALINE PHOSPHATASE (BEAKER) (test 68 U/L 40-150 code = 346) AST (SGOT) (BEAKER) (test code = 98 U/L 5-34 H 353) ALT (SGPT) (BEAKER) (test code = 72 U/L 6-55 H 347) Hr Director ID - [id number] 03:37:30 Test Item Value Reference Range Interpretation Comments MAGNESIUM (BEAKER) (test code = 2.1 mg/dL 1.6-2.6 627) Hr Director ID - [id number] 03:37:30 Test Item Value Reference Range Interpretation Comments PHOSPHORUS (BEAKER) (test code = 3.0 mg/dL 2.3-4.7 604) Hr Director ID - MMBASIC METABOLIC [id number] 03:37:29 Test Item Value Reference Range Interpretation Comments SODIUM (BEAKER) 137 meq/L 136-145 (test code = 381) POTASSIUM 3.7 meq/L 3.5-5.1 (BEAKER) (test code = 379) CHLORIDE (BEAKER) 106 meq/L 98-107 (test code = 382) CO2 (BEAKER) 21 meq/L 22-29 L (test code = 355) BLOOD UREA 22 mg/dL 7-21 H NITROGEN (BEAKER) (test code = 354) CREATININE 1.19 mg/dL 0.57-1.25 (BEAKER) (test code = 358) GLUCOSE RANDOM 138 mg/dL 70-105 H (BEAKER) (test code = 652) CALCIUM (BEAKER) 8.3 mg/dL 8.4-10.2 L (test code = 697) EGFR (BEAKER) 65 Interpretatio n of eGFR (test code = mL/min/1.73 values Stage De scription 1092) sq m Result G1 Effie l or high >=90 G2 Mildly decreased 60-89 G3a Mildl y to moderately 45-5 9 G3b Moderately to s everely 30-44 G4 Severl y decreased 15-29 G5 Kidney failure <15Reported eGF R is based on the CKD-EPI 2020 equation that d oes not use a race coefficientEsti mated GFR is not as accur ate as Creatinine Jessica phil in predicting glom erular filtration rate . Estimated GFR is not appl icable for dialysis patien ts Hr Director ID - MMCBC W/PLT COUNT & AUTO [id number] 03:10:41 Test Item Value Reference Range Interpretation Comments WHITE BLOOD CELL COUNT (BEAKER) 14.7 K/ L 3.5-10.5 H (test code = 775) RED BLOOD CELL COUNT (BEAKER) 2.82 M/ L 4.63-6.08 L (test code = 761) HEMOGLOBIN (BEAKER) (test code = 8.5 GM/DL 13.7-17.5 L 410) HEMATOCRIT (BEAKER) (test code = 25.5 % 40.1-51.0 L 411) MEAN CORPUSCULAR VOLUME (BEAKER) 90 fL 79-92 (test code = 753) MEAN CORPUSCULAR HEMOGLOBIN 30.1 pg 25.7-32.2 (BEAKER) (test code = 751) MEAN CORPUSCULAR HEMOGLOBIN CONC 33.3 GM/DL 32.3-36.5 (BEAKER) (test code = 752) RED CELL DISTRIBUTION WIDTH 14.2 % 11.6-14.4 (BEAKER) (test code = 412) PLATELET COUNT (BEAKER) (test 129 K/CU MM 150-450 L code = 756) MEAN PLATELET VOLUME (BEAKER) 12.0 fL 9.4-12.4 (test code = 754) NUCLEATED RED BLOOD CELLS 0 /100 WBC 0-0 (BEAKER) (test code = 413) NEUTROPHILS RELATIVE PERCENT 76 % (BEAKER) (test code = 429) LYMPHOCYTES RELATIVE PERCENT 13 % (BEAKER) (test code = 430) MONOCYTES RELATIVE PERCENT 10 % (BEAKER) (test code = 431) EOSINOPHILS RELATIVE PERCENT 1 % (BEAKER) (test code = 432) BASOPHILS RELATIVE PERCENT 1 % (BEAKER) (test code = 437) NEUTROPHILS ABSOLUTE COUNT 11.12 K/ L 1.78-5.38 H (BEAKER) (test code = 670) LYMPHOCYTES ABSOLUTE COUNT 1.89 K/ L 1.32-3.57 (BEAKER) (test code = 414) MONOCYTES ABSOLUTE COUNT (BEAKER) 1.40 K/ L 0.30-0.82 H (test code = 415) EOSINOPHILS ABSOLUTE COUNT 0.10 K/ L 0.04-0.54 (BEAKER) (test code = 416) BASOPHILS ABSOLUTE COUNT (BEAKER) 0.07 K/ L 0.01-0.08 (test code = 417) IMMATURE GRANULOCYTES-RELATIVE 0.70 % 0.00-1.00 PERCENT (BEAKER) (test code = 2801) [id number] 03:10:40 Test Item Value Reference Range Interpretation Comments PROTIME (BEAKER) (test code = 20.0 seconds 11.9-14.2 H 759) INR (BEAKER) (test code = 370) 1.83 <=5.90 PARTIAL THROMBOPLASTIN TIME 43.1 seconds 22.5-36.0 H (BEAKER) (test code = 760) RECOMMENDED COUMADIN/WARFARIN INR THERAPY RANGESSTANDARD DOSE: 2.0 - 3.0 Includes: PROPHYLAXIS for venous thrombosis, systemic embolization; TREATMENT for venous thrombosis and/or pulmonary embolus.HIGH RISK: Target INR is 2.5-3.5 for patients with mechanical heart valves.[id number] 03:10:04 Test Item Value Reference Range Interpretation Comments FIBRINOGEN LEVEL (BEAKER) (test 572 mg/dl 225-434 H code = 658) Lactic Acid, [id number] 03:09:22 Test Item Value Reference Range Interpretation Comments Lactate, Art (test code = 1.7 mmol/L 0.5-2.0 2874) SWEETIE (test code = SWEETIE) Hr Director ID - BS Lab Interpretation (test Normal code = 70951-8) [facility], [id number] 03:09:22 Test Item Value Reference Range Interpretation Comments LACTATE BLOOD ARTERIAL (2) 1.7 mmol/L 0.5-2.0 (BEAKER) (test code = 2874) Hr Director ID - BSCALCIUM, [id number] 02:50:58 Test Item Value Reference Range Interpretation Comments CALCIUM IONIZED (BEAKER) (test 1.07 mmol/L 1.12-1.27 L code = 698) PH, BLOOD (BEAKER) (test code = 7.45 1810) POCT-GLUCOSE [id number] 00:17:05 Test Item Value Reference Range Interpretation Comments POC-GLUCOSE METER 142 mg/dL 70-110 H : TESTED A T [facility] 6720 ([facility]) (test code = BHAVNA Brock [facility], 1538) [address]: Hr Director/Techni maikol ID = [id number] for August Prepare Leuko-Red [id number] 23:55:00 Test Item Value Reference Range Interpretation Comments CROSSMATCH (test code = 2264) COMPATIBLE Unit ABO (test code = O Pos 6814935) UNIT NUMBER (test code = [id number] 934-0) Status (test code = 8247552) [facility] Blood Bank Product (test code RED BLOOD CELLS = 2263) PRODUCT CODE (test code = D7804W22 933-2) [facility] [id number] 19:03:30 Test Item Value Reference Range Interpretation Comments POC-GLUCOSE METER 141 mg/dL 70-110 H : Notified RN/MD: (BEAKER) (test code = TESTED AT [facility] 6720 1538) [facility], [address]: Hr Director/Techni maikol ID = [id number] for Belkys hutson Samantha [id number] 17:43:19 Test Item Value Reference Range Interpretation Comments PHOSPHORUS (BEAKER) (test code = 3.1 mg/dL 2.3-4.7 604) Hr Director ID - BSBASIC METABOLIC [id number] 17:43:18 Test Item Value Reference Range Interpretation Comments SODIUM (BEAKER) 138 meq/L 136-145 (test code = 381) POTASSIUM 4.2 meq/L 3.5-5.1 (BEAKER) (test code = 379) CHLORIDE (BEAKER) 107 meq/L 98-107 (test code = 382) CO2 (BEAKER) 23 meq/L 22-29 (test code = 355) BLOOD UREA 20 mg/dL 7-21 NITROGEN (BEAKER) (test code = 354) CREATININE 1.22 mg/dL 0.57-1.25 (BEAKER) (test code = 358) GLUCOSE RANDOM 143 mg/dL 70-105 H (BEAKER) (test code = 652) CALCIUM (BEAKER) 8.6 mg/dL 8.4-10.2 (test code = 697) EGFR (BEAKER) 63 Interpretatio n of eGFR (test code = mL/min/1.73 values Stage De scription 1092) sq m Result G1 Effie l or high >=90 G2 Mildly decreased 60-89 G3a Mildl y to moderately 45-5 9 G3b Moderately to s everely 30-44 G4 Severl y decreased 15-29 G5 Kidney failure <15Reported eGF R is based on the CKD-EPI 2020 equation that d oes not use a race coefficientEsti mated GFR is not as accur ate as Creatinine Jessica villarreal in predicting glom erular filtration rate . Estimated GFR is not appl icable for dialysis patien ts Hr Director ID - [id number] 17:43:18 Test Item Value Reference Range Interpretation Comments MAGNESIUM (BEAKER) (test code = 2.2 mg/dL 1.6-2.6 627) Hr Director ID - BSCBC (HEMOGRAM ONLY)2022 17:30:14 Test Item Value Reference Range Interpretation Comments WHITE BLOOD CELL COUNT (BEAKER) 17.2 K/ L 3.5-10.5 H (test code = 775) RED BLOOD CELL COUNT (BEAKER) 2.92 M/ L 4.63-6.08 L (test code = 761) HEMOGLOBIN (BEAKER) (test code = 8.9 GM/DL 13.7-17.5 L 410) HEMATOCRIT (BEAKER) (test code = 27.2 % 40.1-51.0 L 411) MEAN CORPUSCULAR VOLUME (BEAKER) 93 fL 79-92 H (test code = 753) MEAN CORPUSCULAR HEMOGLOBIN 30.5 pg 25.7-32.2 (BEAKER) (test code = 751) MEAN CORPUSCULAR HEMOGLOBIN CONC 32.7 GM/DL 32.3-36.5 (BEAKER) (test code = 752) RED CELL DISTRIBUTION WIDTH 14.3 % 11.6-14.4 (BEAKER) (test code = 412) PLATELET COUNT (BEAKER) (test 114 K/CU MM 150-450 L code = 756) MEAN PLATELET VOLUME (BEAKER) 11.8 fL 9.4-12.4 (test code = 754) NUCLEATED RED BLOOD CELLS 0 /100 WBC 0-0 (BEAKER) (test code = 413) CALCIUM, [id number] 17:22:49 Test Item Value Reference Range Interpretation Comments CALCIUM IONIZED (BEAKER) (test 1.11 mmol/L 1.12-1.27 L code = 698) PH, BLOOD (BEAKER) (test code = 7.44 1810) POCT-GLUCOSE [id number] 12:11:34 Test Item Value Reference Range Interpretation Comments POC-GLUCOSE METER 155 mg/dL 70-110 H : Notified RN/MD: ([facility]) (test code = TESTED AT [facility] 6108 7689) [facility], [address]: Hr Director/Techni maikol ID = [id number] for Samantha Cortes RAD, CHEST, 1 VIEW, NON [id number] 10:54:00Reason for exam:->Post OpShould this be performed at the bedside?->Yes [facility] 1950 Sex: MFINAL REPORT RAD, CHEST, 1 VIEW, NON DEPT INDICATION: Post Op COMPARISON: Prior day's exam FINDINGS: Portable frontal view of the chest. IMPRESSION: Support Lines: No significant change. Lungs and pleura: Unchanged airspace and pleural opacities, greater on the left. No pneumothorax.Heart and mediastinum: Stable contours. Additional findings: None. Signed: Adelfo Sosa MDReport Verified Date/Time: 2022 10:54:59 LACTIC ACID, [id number] 09:19:53 Test Item Value Reference Range Interpretation Comments LACTATE BLOOD ARTERIAL (2) 1.1 mmol/L 0.5-2.0 (BEAKER) (test code = 2874) Hr Director ID - JUANA WOXYGEN SATURATION, [id number] 09:11:30 Test Item Value Reference Range Interpretation Comments O2 SATURATION (MEASURED) (BEAKER) 66.1 % (test code = 1455) Manual [id number] 07:09:31 Test Item Value Reference Range Interpretation Comments % Neutros (test code = 85 % 2816) % Lymphs (test code = 10 % 2817) % Monos (test code = 5 % 2818) # Neutros (test code = 13.09 K/ul 1.78-5.38 H 2830) # Lymphs (test code = 1.54 K/ul 1.32-3.57 2831) # Monos (test code = 0.77 K/uL 0.30-0.82 2832) Total Counted (test 100 code = 1351) RBC Morphology (test Normal code = 762) Platelet Morphology Normal (test code = 486) Smudge Cells (test code Present = 1371) Artifact (test code = Present 3432) Platelet Conc (test Decreased code = 3438) SWEETIE (test code = SWEETIE) Hr Director ID - [id number] ID - [id number] comments: Slide comments: Lab Interpretation Abnormal (test code = 48715-8) [facility](CELLAVISION MANUAL DIFF)2022 07:09:31 Test Item Value Reference Range Interpretation Comments NEUTROPHILS - REL 85 % (CELLAVISION)(BEAKER) (test code = 2816) LYMPHOCYTES - REL 10 % (CELLAVISION)(BEAKER) (test code = 2817) MONOCYTES - REL 5 % (CELLAVISION)(BEAKER) (test code = 2818) NEUTROPHILS - ABS 13.09 K/ul 1.78-5.38 H (CELLAVISION)(BEAKER) (test code = 2830) LYMPHOCYTES - ABS 1.54 K/ul 1.32-3.57 (CELLAVISION)(BEAKER) (test code = 2831) MONOCYTES - ABS 0.77 K/uL 0.30-0.82 (CELLAVISION)(BEAKER) (test code = 2832) TOTAL COUNTED (BEAKER) (test code 100 = 1351) RBC MORPHOLOGY (BEAKER) (test code Normal = 762) PLT MORPHOLOGY (BEAKER) (test code Normal = 486) SMUDGE CELLS (BEAKER) (test code = Present 1371) ARTIFACT (CELLAVISION)(BEAKER) Present (test code = 3432) PLATELET CONCENTRATION Decreased (CELLAVISION)(BEAKER) (test code = 3438) Hr Director ID - [id number] ID - [id number] comments: Slide comments:CBC W/PLT COUNT & AUTO [id number] 07:09:26 Test Item Value Reference Range Interpretation Comments WHITE BLOOD CELL COUNT (BEAKER) 15.4 K/ L 3.5-10.5 H (test code = 775) RED BLOOD CELL COUNT (BEAKER) 2.69 M/ L 4.63-6.08 L (test code = 761) HEMOGLOBIN (BEAKER) (test code = 8.3 GM/DL 13.7-17.5 L 410) HEMATOCRIT (BEAKER) (test code = 25.4 % 40.1-51.0 L 411) MEAN CORPUSCULAR VOLUME (BEAKER) 94 fL 79-92 H (test code = 753) MEAN CORPUSCULAR HEMOGLOBIN 30.9 pg 25.7-32.2 (BEAKER) (test code = 751) MEAN CORPUSCULAR HEMOGLOBIN CONC 32.7 GM/DL 32.3-36.5 (BEAKER) (test code = 752) RED CELL DISTRIBUTION WIDTH 14.3 % 11.6-14.4 (BEAKER) (test code = 412) PLATELET COUNT (BEAKER) (test code 94 K/CU MM 150-450 L = 756) MEAN PLATELET VOLUME (BEAKER) 11.5 fL 9.4-12.4 (test code = 754) NUCLEATED RED BLOOD CELLS (BEAKER) 0 /100 WBC 0-0 (test code = 413) POCT-GLUCOSE [id number] 06:11:43 Test Item Value Reference Range Interpretation Comments POC-GLUCOSE METER 143 mg/dL 70-110 H : TESTED A T [facility] 6720 (BEAKER) (test code = [place], 1538) [id number]: Hr Director/Techni maikol ID = [id number] for Karishma Lazar OXYGEN SATURATION, [id number] 06:09:18 Test Item Value Reference Range Interpretation Comments O2 SATURATION (MEASURED) (BEAKER) 80.9 % (test code = 1455) [id number] 03:27:36 Test Item Value Reference Range Interpretation Comments PROTIME (BEAKER) (test code = 20.1 seconds 11.9-14.2 H 759) INR (BEAKER) (test code = 370) 1.84 <=5.90 PARTIAL THROMBOPLASTIN TIME 42.8 seconds 22.5-36.0 H (BEAKER) (test code = 760) RECOMMENDED COUMADIN/WARFARIN INR THERAPY RANGESSTANDARD DOSE: 2.0 - 3.0 Includes: PROPHYLAXIS for venous thrombosis, systemic embolization; TREATMENT for venous thrombosis and/or pulmonary embolus.HIGH RISK: Target INR is 2.5-3.5 for patients with mechanical heart valves.[id number] 03:26:55 Test Item Value Reference Range Interpretation Comments FIBRINOGEN LEVEL (BEAKER) (test 479 mg/dl 225-434 H code = 658) [id number] 03:21:57 Test Item Value Reference Range Interpretation Comments PHOSPHORUS (BEAKER) (test code = 4.0 mg/dL 2.3-4.7 604) Hr Director ID - ADMINHEPATIC FUNCTION [id number] 03:21:57 Test Item Value Reference Range Interpretation Comments TOTAL PROTEIN (BEAKER) (test code = 5.2 gm/dL 6.0-8.3 L 770) ALBUMIN (BEAKER) (test code = 1145) 2.7 g/dL 3.5-5.0 L BILIRUBIN TOTAL (BEAKER) (test code 1.1 mg/dL 0.2-1.2 = 377) BILIRUBIN DIRECT (BEAKER) (test 0.5 mg/dL 0.1-0.5 code = 706) ALKALINE PHOSPHATASE (BEAKER) (test 41 U/L 40-150 code = 346) AST (SGOT) (BEAKER) (test code = 85 U/L 5-34 H 353) ALT (SGPT) (BEAKER) (test code = 29 U/L 6-55 347) Hr Director ID - ADMINBASIC METABOLIC [id number] 03:21:56 Test Item Value Reference Range Interpretation Comments SODIUM (BEAKER) 136 meq/L 136-145 (test code = 381) POTASSIUM 4.3 meq/L 3.5-5.1 (BEAKER) (test code = 379) CHLORIDE (BEAKER) 108 meq/L 98-107 H (test code = 382) CO2 (BEAKER) 20 meq/L 22-29 L (test code = 355) BLOOD UREA 16 mg/dL 7-21 NITROGEN (BEAKER) (test code = 354) CREATININE 1.20 mg/dL 0.57-1.25 (BEAKER) (test code = 358) GLUCOSE RANDOM 133 mg/dL 70-105 H (BEAKER) (test code = 652) CALCIUM (BEAKER) 8.1 mg/dL 8.4-10.2 L (test code = 697) EGFR (BEAKER) 64 Interpretatio n of eGFR (test code = mL/min/1.73 values Stage De scription 1092) sq m Result G1 Effie l or high >=90 G2 Mildly decreased 60-89 G3a Mildl y to moderately 45-5 9 G3b Moderately to s everely 30-44 G4 Severl y decreased 15-29 G5 Kidney failure <15Reported eGF R is based on the CKD-EPI 2021 equation that d oes not use a race coefficientEsti mated GFR is not as accur ate as Creatinine Jessica phil in predicting glom erular filtration rate . Estimated GFR is not appl icable for dialysis patien ts Hr Director ID - [id number] 03:21:56 Test Item Value Reference Range Interpretation Comments MAGNESIUM (BEAKER) (test code = 2.1 mg/dL 1.6-2.6 627) Hr Director ID - ADMINLACTIC ACID, [id number] 03:10:07 Test Item Value Reference Range Interpretation Comments LACTATE BLOOD ARTERIAL (2) 1.1 mmol/L 0.5-2.0 (BEAKER) (test code = 2874) Hr Director ID - JUANA WOXYGEN SATURATION, [id number] 03:02:28 Test Item Value Reference Range Interpretation Comments O2 SATURATION (MEASURED) (BEAKER) 74.4 % (test code = 1455) Blood gas, [id number] 03:01:49 Test Item Value Reference Range Interpretation Comments pH, Arterial (test code 7.43 7.35-7.45 = 2744-1) pCO2, Arterial (test 35 See_Comment [Autom ated code = 2019-8) message] The system which generated this result transmitted reference range : 35 - 45 mm Hg. The reference range was not used to interpret this result as normal/abnormal . pO2, Arterial (test 182 See_Comment H [Automa ronaldo code = 2703-7) message] The system which generated this result transmitted reference range : 80 - 90 mm Hg. The reference range was not used to interpret this result as normal/abnormal . O2 Sat, Arterial (test 99.3 % 96.0-97.0 H code = 2708-6) HCO3, Arterial (test 23 mmol/L 21-29 code = 1960-4) Base Excess, Arterial -1.5 mmol/L -2.0-3.0 (test code = 1925-7) Patient Temperature 37.1 (test code = 8310-5) FIO2 (test code = 1819) 32 Lab Interpretation Abnormal (test code = 01438-8) [facility] [id number] 03:01:49 Test Item Value Reference Range Interpretation Comments PH ARTERIAL (BEAKER) (test code = 7.43 7.35-7.45 383) PCO2 ARTERIAL (BEAKER) (test code 35 mm Hg 35-45 = 384) PO2 ARTERIAL (BEAKER) (test code 182 mm Hg 80-90 H = 385) O2 SATURATION ARTERIAL (BEAKER) 99.3 % 96.0-97.0 H (test code = 386) HCO3 ARTERIAL (BEAKER) (test code 23 mmol/L 21-29 = 388) BASE EXCESS ARTERIAL (BEAKER) -1.5 mmol/L -2.0-3.0 (test code = 387) PATIENT TEMPERATURE (BEAKER) 37.1 (test code = 1818) FIO2 (BEAKER) (test code = 1819) 32.0 CALCIUM, [id number] 03:00:31 Test Item Value Reference Range Interpretation Comments CALCIUM IONIZED (BEAKER) (test 1.15 mmol/L 1.12-1.27 code = 698) PH, BLOOD (BEAKER) (test code = 7.43 1810) Prepare [id number] 23:54:00 Test Item Value Reference Range Interpretation Comments CROSSMATCH (test code = COMPATIBLE 3184) Unit ABO (test code = O Pos 7931556) UNIT NUMBER (test code = [id number] 934-0) Status (test code = RETURNED FROM ISSUE 4160316) Blood Bank Product (test RED BLOOD CELLS code = 2263) PRODUCT CODE (test code = I5182U17 933-2) [facility] [id number] 23:43:32 Test Item Value Reference Range Interpretation Comments POC-GLUCOSE METER 141 mg/dL 70-110 H : TESTED A T [facility] 6720 (BEAKER) (test code = [place], 1538) [address]: Hr Director/Techni maikol ID = [id number] for Karishma Lazar CALCIUM, [id number] 23:42:33 Test Item Value Reference Range Interpretation Comments CALCIUM IONIZED (BEAKER) (test 1.17 mmol/L 1.12-1.27 code = 698) PH, BLOOD (BEAKER) (test code = 7.37 1810) OXYGEN SATURATION, [id number] 23:41:54 Test Item Value Reference Range Interpretation Comments O2 SATURATION (MEASURED) (BEAKER) 72.8 % (test code = 1455) CALCIUM, [id number] 20:49:52 Test Item Value Reference Range Interpretation Comments CALCIUM IONIZED (BEAKER) (test 1.09 mmol/L 1.12-1.27 L code = 698) PH, BLOOD (BEAKER) (test code = 7.32 1810) HGB/HCT (H&H)-Stat [id number] 20:49:51 Test Item Value Reference Range Interpretation Comments Hemoglobin (test code = 9.3 See_Comment L [Au tomated message] 718-7) The system Clari generated this result transmitted ref erence range: 13.0 - 1 6.8 GM/DL. The refe rence range was not u sed to interpret this result as normal/abnor mal. Hematocrit (test code = 27.0 % 40.0-50.0 L 4544-3) Lab Interpretation (test Abnormal code = 92788-8) [facility], [id number] 20:49:51 Test Item Value Reference Range Interpretation Comments PH ARTERIAL (BEAKER) (test code = 7.32 7.35-7.45 L 383) PCO2 ARTERIAL (BEAKER) (test code 45 mm Hg 35-45 = 384) PO2 ARTERIAL (BEAKER) (test code 78 mm Hg 80-90 L = 385) O2 SATURATION ARTERIAL (BEAKER) 94.7 % 96.0-97.0 L (test code = 386) HCO3 ARTERIAL (BEAKER) (test code 23 mmol/L 21-29 = 388) BASE EXCESS ARTERIAL (BEAKER) -3.3 mmol/L -2.0-3.0 L (test code = 387) PATIENT TEMPERATURE (BEAKER) 36.7 (test code = 1818) FIO2 (BEAKER) (test code = 1819) 32.0 HGB/HCT (H&H) - STAT [id number] 20:49:51 Test Item Value Reference Range Interpretation Comments HEMOGLOBIN (BEAKER) (test code = 9.3 GM/DL 13.0-16.8 L 410) HEMATOCRIT (BEAKER) (test code = 27.0 % 40.0-50.0 L 411) Sodium Na-Stat [id number] 20:43:04 Test Item Value Reference Range Interpretation Comments Sodium (test code = 2951-2) 136 meq/L 136-145 Lab Interpretation (test code = Normal 60340-2) [facility] [id number] 20:43:04 Test Item Value Reference Range Interpretation Comments Potassium (test code = 2823-3) 4.2 meq/L 3.6-5.5 Lab Interpretation (test code = Normal 59056-5) [facility] [id number] 20:43:04 Test Item Value Reference Range Interpretation Comments SODIUM (BEAKER) (test code = 381) 136 meq/L 136-145 POTASSIUM-STAT [id number] 20:43:04 Test Item Value Reference Range Interpretation Comments POTASSIUM (BEAKER) (test code = 4.2 meq/L 3.6-5.5 379) Glucose-Stat [id number] 20:43:03 Test Item Value Reference Range Interpretation Comments Glucose (test code = 2345-7) 130 mg/dL 70-110 H Lab Interpretation (test code = Abnormal 35513-8) [facility] [id number] 20:43:03 Test Item Value Reference Range Interpretation Comments GLUCOSE RANDOM (BEAKER) (test code 130 mg/dL 70-110 H = 652) POCT-GLUCOSE [id number] 18:28:36 Test Item Value Reference Range Interpretation Comments POC-GLUCOSE METER 99 mg/dL 70-110 : TESTED A T [facility] 6720 (BEAKER) (test code = [place], 1538) [address]: Hr Director/Techni maikol ID = [id number] for ATUL WALTER [id number] 16:54:08 Test Item Value Reference Range Interpretation Comments MAGNESIUM (BEAKER) (test code = 2.2 mg/dL 1.6-2.6 627) Hr Director ID - [id number] 16:54:08 Test Item Value Reference Range Interpretation Comments PHOSPHORUS (BEAKER) (test code = 4.1 mg/dL 2.3-4.7 604) Hr Director ID - BSBASIC METABOLIC [id number] 16:54:07 Test Item Value Reference Range Interpretation Comments SODIUM (BEAKER) 139 meq/L 136-145 (test code = 381) POTASSIUM 4.2 meq/L 3.5-5.1 (BEAKER) (test code = 379) CHLORIDE (BEAKER) 109 meq/L 98-107 H (test code = 382) CO2 (BEAKER) 23 meq/L 22-29 (test code = 355) BLOOD UREA 16 mg/dL 7-21 NITROGEN (BEAKER) (test code = 354) CREATININE 1.18 mg/dL 0.57-1.25 (BEAKER) (test code = 358) GLUCOSE RANDOM 115 mg/dL 70-105 H (BEAKER) (test code = 652) CALCIUM (BEAKER) 8.0 mg/dL 8.4-10.2 L (test code = 697) EGFR (BEAKER) 66 Interpretati on of eGFR (test code = mL/min/1.73 values Stage De scription 1092) sq m Result G1 Effie l or high >=90 G2 Mildly decreased 60-89 G3a Mildl y to moderately 45-5 9 G3b Moderately to s everely 30-44 G4 Severl y decreased 15-29 G5 Kidney failure <15Reported eGF R is based on the CKD-EPI 2020 equation that d oes not use a race coefficientEsti mated GFR is not as accur ate as Creatinine Jessica phil in predicting glom erular filtration rate . Estimated GFR is not appl icable for dialysis patien ts Hr Director ID - BSLACTIC ACID, [id number] 16:48:41 Test Item Value Reference Range Interpretation Comments LACTATE BLOOD ARTERIAL (2) 1.5 mmol/L 0.5-2.0 (BEAKER) (test code = 2874) Hr Director ID - [id number] 16:42:20 Test Item Value Reference Range Interpretation Comments ACTIVATED CLOTTING TIME 444 sec : 74 -137 seconds, (BEAKER) (test code = Baseli ne: TESTED AT 441) [facility] [address] [facility], [address]: Hr Director/Techni maikol ID = [id number] for WILLIAM POTTER [id number] 16:42:20 Test Item Value Reference Range Interpretation Comments ACTIVATED CLOTTING TIME 498 sec : 74 -137 seconds, (BEAKER) (test code = Baseli ne: TESTED AT 441) [facility] [address] [facility], [address]: Hr Director/Techni maikol ID = [id number] for WILLIAM POTTER [id number] 16:42:19 Test Item Value Reference Range Interpretation Comments ACTIVATED CLOTTING TIME 492 sec : 74 -137 seconds, (BEAKER) (test code = Baseli ne: TESTED AT 441) [address], [address]: Hr Director/Techni maikol ID = [id number] for WILLIAM POTTER POC ACTIVATED CLOTTING [id number] 16:41:45 Test Item Value Reference Range Interpretation Comments Activated Clotting Time 113 sec : 74 -137 seconds, (test code = 3184-9) Baselin e: TESTED AT [address], [address]: Hr Director/Techni maikol ID = [id number] for WILLIAM POTTER [id number] 16:41:45 Test Item Value Reference Range Interpretation Comments ACTIVATED CLOTTING TIME 113 sec : 74 -137 seconds, (BEAKER) (test code = Baseli ne: TESTED AT 441) [address], [address]: Hr Director/Techni maikol ID = [id number] for WILLIAM POTTER [id number] 16:41:44 Test Item Value Reference Range Interpretation Comments ACTIVATED CLOTTING TIME 438 sec : 74 -137 seconds, (BEAKER) (test code = Baseli ne: TESTED AT 441) [address], [address]: Hr Director/Techni maikol ID = [id number] for WILLIAM POTTER [id number] 16:41:44 Test Item Value Reference Range Interpretation Comments ACTIVATED CLOTTING TIME 402 sec : 74 -137 seconds, (BEAKER) (test code = Baseli ne: TESTED AT 441) [address], [address]: Hr Director/Techni maikol ID = [id number] for WILLIAM POTTER [id number] 16:41:43 Test Item Value Reference Range Interpretation Comments ACTIVATED CLOTTING TIME 137 sec : 74 -137 seconds, (BEAKER) (test code = Baseli ne: TESTED AT 441) [address], [address]: Hr Director/Techni maikol ID = [id number] for WILLIAM POTTER CBC (HEMOGRAM ONLY)[id number] 16:36:09 Test Item Value Reference Range Interpretation Comments WHITE BLOOD CELL COUNT (BEAKER) 17.9 K/ L 3.5-10.5 H (test code = 775) RED BLOOD CELL COUNT (BEAKER) 2.35 M/ L 4.63-6.08 L (test code = 761) HEMOGLOBIN (BEAKER) (test code = 7.2 GM/DL 13.7-17.5 L 410) HEMATOCRIT (BEAKER) (test code = 22.1 % 40.1-51.0 L 411) MEAN CORPUSCULAR VOLUME (BEAKER) 94 fL 79-92 H (test code = 753) MEAN CORPUSCULAR HEMOGLOBIN 30.6 pg 25.7-32.2 (BEAKER) (test code = 751) MEAN CORPUSCULAR HEMOGLOBIN CONC 32.6 GM/DL 32.3-36.5 (BEAKER) (test code = 752) RED CELL DISTRIBUTION WIDTH 13.5 % 11.6-14.4 (BEAKER) (test code = 412) PLATELET COUNT (BEAKER) (test 105 K/CU MM 150-450 L code = 756) MEAN PLATELET VOLUME (BEAKER) 11.9 fL 9.4-12.4 (test code = 754) NUCLEATED RED BLOOD CELLS 0 /100 WBC 0-0 (BEAKER) (test code = 413) CALCIUM, [id number] 16:07:02 Test Item Value Reference Range Interpretation Comments CALCIUM IONIZED (BEAKER) (test 1.10 mmol/L 1.12-1.27 L code = 698) PH, BLOOD (BEAKER) (test code = 7.44 1810) POCT-GLUCOSE [id number] 16:04:46 Test Item Value Reference Range Interpretation Comments POC-GLUCOSE METER 115 mg/dL 70-110 H : TESTED A T [facility] 6720 (BEAKER) (test code = BHAVNA Gutiérrez [facility], 1538) [address]: Hr Director/Techni maikol ID = [id number] for Reynaldo-Yan, [place] avier LACTIC ACID, [id number] 13:00:33 Test Item Value Reference Range Interpretation Comments LACTATE BLOOD ARTERIAL (2) 2.2 mmol/L 0.5-2.0 H (BEAKER) (test code = 2874) Hr Director ID - MARCOPOCT-GLUCOSE [id number] 12:25:36 Test Item Value Reference Range Interpretation Comments POC-GLUCOSE METER 137 mg/dL 70-110 H : TESTED A T [facility] 6720 (BEAKER) (test code = [place], 1538) [address]: Hr Director/Techni maikol ID = [id number] for [place] Soria avier BASIC METABOLIC [id number] 09:44:09 Test Item Value Reference Range Interpretation Comments SODIUM (BEAKER) 139 meq/L 136-145 (test code = 381) POTASSIUM 4.6 meq/L 3.5-5.1 (BEAKER) (test code = 379) CHLORIDE (BEAKER) 109 meq/L 98-107 H (test code = 382) CO2 (BEAKER) 23 meq/L 22-29 (test code = 355) BLOOD UREA 17 mg/dL 7-21 NITROGEN (BEAKER) (test code = 354) CREATININE 1.29 mg/dL 0.57-1.25 H (BEAKER) (test code = 358) GLUCOSE RANDOM 155 mg/dL 70-105 H (BEAKER) (test code = 652) CALCIUM (BEAKER) 8.6 mg/dL 8.4-10.2 (test code = 697) EGFR (BEAKER) 59 Interpretatio n of eGFR (test code = mL/min/1.73 values Stage De scription 1092) sq m Result G1 Effie l or high >=90 G2 Mildly decreased 60-89 G3a Mildl y to moderately 45-5 9 G3b Moderately to s everely 30-44 G4 Severl y decreased 15-29 G5 Kidney failure <15Reported eGF R is based on the CKD-EPI 2021 equation that d oes not use a race coefficientEsti mated GFR is not as accur ate as Creatinine Jessica villarreal in predicting glom erular filtration rate . Estimated GFR is not appl icable for dialysis patien ts Hr Director ID - MARCOLACTIC ACID, [id number] 09:41:56 Test Item Value Reference Range Interpretation Comments LACTATE BLOOD ARTERIAL (2) 3.2 mmol/L 0.5-2.0 H (BEAKER) (test code = 2874) Hr Director ID - MARCOBLOOD GAS, [id number] 09:03:19 Test Item Value Reference Range Interpretation Comments PH ARTERIAL (BEAKER) (test code = 7.43 7.35-7.45 383) PCO2 ARTERIAL (BEAKER) (test code 33 mm Hg 35-45 L = 384) PO2 ARTERIAL (BEAKER) (test code 112 mm Hg 80-90 H = 385) O2 SATURATION ARTERIAL (BEAKER) 98.3 % 96.0-97.0 H (test code = 386) HCO3 ARTERIAL (BEAKER) (test code 21 mmol/L 21-29 = 388) BASE EXCESS ARTERIAL (BEAKER) -2.5 mmol/L -2.0-3.0 L (test code = 387) PATIENT TEMPERATURE (BEAKER) 37.0 (test code = 1818) FIO2 (BEAKER) (test code = 1819) 100.0 CALCIUM, [id number] 09:03:17 Test Item Value Reference Range Interpretation Comments CALCIUM IONIZED (BEAKER) (test 1.17 mmol/L 1.12-1.27 code = 698) PH, BLOOD (BEAKER) (test code = 7.43 1810) OXYGEN SATURATION, [id number] 09:03:15 Test Item Value Reference Range Interpretation Comments O2 SATURATION (MEASURED) (BEAKER) 61.8 % (test code = 1455) POCT-GLUCOSE [id number] 08:59:05 Test Item Value Reference Range Interpretation Comments POC-GLUCOSE METER 162 mg/dL 70-110 H : TESTED A T [facility] 6720 (BEAKER) (test code = [facility], 1538) [address]: Hr Director/Techni maikol ID = [id number] for Hover-Yan, X avier POCT-GLUCOSE [id number] 07:38:28 Test Item Value Reference Range Interpretation Comments POC-GLUCOSE METER 175 mg/dL 70-110 H : TESTED A T [facility] 6720 (BEAKER) (test code = [facility], 1538) [address]: Hr Director/Techni maikol ID = [id number] for Hover-Yan, X avier RAD, CHEST, 1 VIEW, NON [id number] 07:17:00Reason for exam:->Post OpShould this be performed at the bedside?->Yes [facility] : 1950 Sex: MFINAL REPORT RAD, CHEST, 1 VIEW, NON DEPT INDICATION: Post Op COMPARISON: Prior day's exam FINDINGS: Portable frontal view of the chest. IMPRESSION: Support Lines: ET tube and enterictube removed. Raymond-Robert catheter tip overlies the pulmonary outflow tract. Otherwise, stable supportapparatus. Lungs and pleura: No significant change in left greater than right airspace and pleural opacities. No pneumothorax.Heart and mediastinum: Stable contours. Additional findings: None. Signed: Adelfo Sosa MDReport Verified Date/Time: 08/25/2022 07:17:45 POCT-GLUCOSE [id number] 06:39:18 Test Item Value Reference Range Interpretation Comments POC-GLUCOSE METER 177 mg/dL 70-110 H : TESTED A T [facility] 6720 (BEAKER) (test code = [facility], 1538) [address]: Hr Director/Techni maikol ID = [id number] for Marina do (contract) [facility] POCT-GLUCOSE [id number] 03:31:00 Test Item Value Reference Range Interpretation Comments POC-GLUCOSE METER 160 mg/dL 70-110 H : TESTED A T [facility] 6720 (BEAKER) (test code = [facility], 1538) [address]: Hr Director/Techni maikol ID = [id number] for Marina do (contract), [facility] HEPATIC FUNCTION [id number] 03:00:46 Test Item Value Reference Range Interpretation Comments TOTAL PROTEIN (BEAKER) (test code = 5.1 gm/dL 6.0-8.3 L 770) ALBUMIN (BEAKER) (test code = 1145) 3.0 g/dL 3.5-5.0 L BILIRUBIN TOTAL (BEAKER) (test code 1.0 mg/dL 0.2-1.2 = 377) BILIRUBIN DIRECT (BEAKER) (test 0.4 mg/dL 0.1-0.5 code = 706) ALKALINE PHOSPHATASE (BEAKER) (test 37 U/L 40-150 L code = 346) AST (SGOT) (BEAKER) (test code = 74 U/L 5-34 H 353) ALT (SGPT) (BEAKER) (test code = 26 U/L 6-55 347) Hr Director ID - [id number] 03:00:45 Test Item Value Reference Range Interpretation Comments MAGNESIUM (BEAKER) (test code = 2.3 mg/dL 1.6-2.6 627) Hr Director ID - [id number] 03:00:45 Test Item Value Reference Range Interpretation Comments PHOSPHORUS (BEAKER) (test code = 4.3 mg/dL 2.3-4.7 604) Hr Director ID - MARCOBASIC METABOLIC [id number] 03:00:44 Test Item Value Reference Range Interpretation Comments SODIUM (BEAKER) 139 meq/L 136-145 (test code = 381) POTASSIUM 5.0 meq/L 3.5-5.1 (BEAKER) (test code = 379) CHLORIDE (BEAKER) 110 meq/L 98-107 H (test code = 382) CO2 (BEAKER) 21 meq/L 22-29 L (test code = 355) BLOOD UREA 17 mg/dL 7-21 NITROGEN (BEAKER) (test code = 354) CREATININE 1.27 mg/dL 0.57-1.25 H (BEAKER) (test code = 358) GLUCOSE RANDOM 175 mg/dL 70-105 H (BEAKER) (test code = 652) CALCIUM (BEAKER) 9.0 mg/dL 8.4-10.2 (test code = 697) EGFR (BEAKER) 60 Interpretatio n of eGFR (test code = mL/min/1.73 values Stage De scription 1092) sq m Result G1 Effie l or high >=90 G2 Mildly decreased 60-89 G3a Mildl y to moderately 45-5 9 G3b Moderately to s everely 30-44 G4 Severl y decreased 15-29 G5 Kidney failure <15Reported eGF R is based on the CKD-EPI 202 equation that d oes not use a race coefficientEsti mated GFR is not as accur ate as Creatinine Jessica phil in predicting glom erular filtration rate . Estimated GFR is not appl icable for dialysis patien ts Hr Director ID - MARCOOXYGEN SATURATION, [id number] 02:50:03 Test Item Value Reference Range Interpretation Comments O2 SATURATION (MEASURED) (BEAKER) 74.2 % (test code = 1455) LACTIC ACID, [id number] 02:49:22 Test Item Value Reference Range Interpretation Comments LACTATE BLOOD ARTERIAL (2) 2.2 mmol/L 0.5-2.0 H (BEAKER) (test code = 2874) Hr Director ID - [id number] 02:47:18 Test Item Value Reference Range Interpretation Comments PROTIME (BEAKER) (test code = 18.8 seconds 11.9-14.2 H 759) INR (BEAKER) (test code = 370) 1.68 <=5.90 PARTIAL THROMBOPLASTIN TIME 37.1 seconds 22.5-36.0 H (BEAKER) (test code = 760) RECOMMENDED COUMADIN/WARFARIN INR THERAPY RANGESSTANDARD DOSE: 2.0 - 3.0 Includes: PROPHYLAXIS for venous thrombosis, systemic embolization; TREATMENT for venous thrombosis and/or pulmonary embolus.HIGH RISK: Target INR is 2.5-3.5 for patients with mechanical heart valves.BLOOD GAS, [id number] 02:47:06 Test Item Value Reference Range Interpretation Comments PH ARTERIAL (BEAKER) (test code = 7.46 7.35-7.45 H 383) PCO2 ARTERIAL (BEAKER) (test code 33 mm Hg 35-45 L = 384) PO2 ARTERIAL (BEAKER) (test code 158 mm Hg 80-90 H = 385) O2 SATURATION ARTERIAL (BEAKER) 99.1 % 96.0-97.0 H (test code = 386) HCO3 ARTERIAL (BEAKER) (test code 23 mmol/L 21-29 = 388) BASE EXCESS ARTERIAL (BEAKER) -0.2 mmol/L -2.0-3.0 (test code = 387) PATIENT TEMPERATURE (BEAKER) 37.0 (test code = 1818) [id number] 02:47:01 Test Item Value Reference Range Interpretation Comments FIBRINOGEN LEVEL (BEAKER) (test 306 mg/dl 225-434 code = 658) CALCIUM, [id number] 02:46:38 Test Item Value Reference Range Interpretation Comments CALCIUM IONIZED (BEAKER) (test 1.18 mmol/L 1.12-1.27 code = 698) PH, BLOOD (BEAKER) (test code = 7.46 1810) CBC W/PLT COUNT & AUTO [id number] 02:39:48 Test Item Value Reference Range Interpretation Comments WHITE BLOOD CELL COUNT (BEAKER) 17.7 K/ L 3.5-10.5 H (test code = 775) RED BLOOD CELL COUNT (BEAKER) 2.78 M/ L 4.63-6.08 L (test code = 761) HEMOGLOBIN (BEAKER) (test code = 8.7 GM/DL 13.7-17.5 L 410) HEMATOCRIT (BEAKER) (test code = 26.0 % 40.1-51.0 L 411) MEAN CORPUSCULAR VOLUME (BEAKER) 94 fL 79-92 H (test code = 753) MEAN CORPUSCULAR HEMOGLOBIN 31.3 pg 25.7-32.2 (BEAKER) (test code = 751) MEAN CORPUSCULAR HEMOGLOBIN CONC 33.5 GM/DL 32.3-36.5 (BEAKER) (test code = 752) RED CELL DISTRIBUTION WIDTH 13.3 % 11.6-14.4 (BEAKER) (test code = 412) PLATELET COUNT (BEAKER) (test 130 K/CU MM 150-450 L code = 756) MEAN PLATELET VOLUME (BEAKER) 11.2 fL 9.4-12.4 (test code = 754) NUCLEATED RED BLOOD CELLS 0 /100 WBC 0-0 (BEAKER) (test code = 413) NEUTROPHILS RELATIVE PERCENT 83 % (BEAKER) (test code = 429) LYMPHOCYTES RELATIVE PERCENT 9 % (BEAKER) (test code = 430) MONOCYTES RELATIVE PERCENT 7 % (BEAKER) (test code = 431) EOSINOPHILS RELATIVE PERCENT 0 % (BEAKER) (test code = 432) BASOPHILS RELATIVE PERCENT 1 % (BEAKER) (test code = 437) NEUTROPHILS ABSOLUTE COUNT 14.69 K/ L 1.78-5.38 H (BEAKER) (test code = 670) LYMPHOCYTES ABSOLUTE COUNT 1.50 K/ L 1.32-3.57 (BEAKER) (test code = 414) MONOCYTES ABSOLUTE COUNT (BEAKER) 1.29 K/ L 0.30-0.82 H (test code = 415) EOSINOPHILS ABSOLUTE COUNT 0.03 K/ L 0.04-0.54 L (BEAKER) (test code = 416) BASOPHILS ABSOLUTE COUNT (BEAKER) 0.11 K/ L 0.01-0.08 H (test code = 417) IMMATURE GRANULOCYTES-RELATIVE 0.60 % 0.00-1.00 PERCENT (BEAKER) (test code = 2801) POCT-GLUCOSE [id number] 01:27:59 Test Item Value Reference Range Interpretation Comments POC-GLUCOSE METER 167 mg/dL 70-110 H : TESTED A T [facility] 6720 (BEAKER) (test code = [facility] [employer] [facility], 1538) [id number]: Hr Director/Techni maikol ID = [id number] for Marina do (contract), [facility] POCT-GLUCOSE [id number] 00:21:36 Test Item Value Reference Range Interpretation Comments POC-GLUCOSE METER 162 mg/dL 70-110 H : TESTED A T [facility] 6720 (BEAKER) (test code = [facility] [employer] [facility], 1538) [id number]: Hr Director/Techni maikol ID = [id number] for Marina do (contract), [facility] BLOOD GAS, [id number] 23:17:40 Test Item Value Reference Range Interpretation Comments PH ARTERIAL (BEAKER) (test code = 7.44 7.35-7.45 383) PCO2 ARTERIAL (BEAKER) (test code 32 mm Hg 35-45 L = 384) PO2 ARTERIAL (BEAKER) (test code 133 mm Hg 80-90 H = 385) O2 SATURATION ARTERIAL (BEAKER) 98.8 % 96.0-97.0 H (test code = 386) HCO3 ARTERIAL (BEAKER) (test code 21 mmol/L 21-29 = 388) BASE EXCESS ARTERIAL (BEAKER) -2.3 mmol/L -2.0-3.0 L (test code = 387) PATIENT TEMPERATURE (BEAKER) 37.0 (test code = 1818) POCT-GLUCOSE [id number] 23:16:58 Test Item Value Reference Range Interpretation Comments POC-GLUCOSE METER 164 mg/dL 70-110 H : TESTED A T [facility] 6720 (BEAKER) (test code = BHAVNA Gutiérrez [place], 1538) [id number]: Hr Director/Techni maikol ID = [id number] for Marina do (contract), Jaime armas POCT-GLUCOSE [id number] 22:05:48 Test Item Value Reference Range Interpretation Comments POC-GLUCOSE METER 149 mg/dL 70-110 H : TESTED A T [facility] 6720 (BEAKER) (test code = BHAVNA Gutiérrez [place], 1538) [address]: Hr Director/Techni maikol ID = [id number] for Marina do (contract), Jaime armas LACTIC ACID, [id number] 21:28:41 Test Item Value Reference Range Interpretation Comments LACTATE BLOOD ARTERIAL (2) 2.9 mmol/L 0.5-2.0 H (BEAKER) (test code = 2874) Hr Director ID - BSHGB/HCT (H&H) - STAT [id number] 21:13:01 Test Item Value Reference Range Interpretation Comments HEMOGLOBIN (BEAKER) (test code = 9.7 GM/DL 13.0-16.8 L 410) HEMATOCRIT (BEAKER) (test code = 29.0 % 40.0-50.0 L 411) BLOOD GAS, [id number] 21:13:00 Test Item Value Reference Range Interpretation Comments PH ARTERIAL (BEAKER) (test code = 7.46 7.35-7.45 H 383) PCO2 ARTERIAL (BEAKER) (test code 28 mm Hg 35-45 L = 384) PO2 ARTERIAL (BEAKER) (test code 99 mm Hg 80-90 H = 385) O2 SATURATION ARTERIAL (BEAKER) 97.9 % 96.0-97.0 H (test code = 386) HCO3 ARTERIAL (BEAKER) (test code 20 mmol/L 21-29 L = 388) BASE EXCESS ARTERIAL (BEAKER) -3.4 mmol/L -2.0-3.0 L (test code = 387) PATIENT TEMPERATURE (BEAKER) 37.0 (test code = 1818) FIO2 (BEAKER) (test code = 1819) 100.0 POTASSIUM-STAT [id number] 21:12:04 Test Item Value Reference Range Interpretation Comments POTASSIUM (BEAKER) (test code = 4.6 meq/L 3.6-5.5 379) GLUCOSE-STAT [id number] 21:12:03 Test Item Value Reference Range Interpretation Comments GLUCOSE RANDOM (BEAKER) (test code 172 mg/dL 70-110 H = 652) SODIUM NA-STAT [id number] 21:12:03 Test Item Value Reference Range Interpretation Comments SODIUM (BEAKER) (test code = 381) 138 meq/L 136-145 LACTIC ACID, [id number] 20:00:51 Test Item Value Reference Range Interpretation Comments LACTATE BLOOD ARTERIAL (2) 3.9 mmol/L 0.5-2.0 H (BEAKER) (test code = 2874) Hr Director ID - BSPOCT-GLUCOSE [id number] 19:59:57 Test Item Value Reference Range Interpretation Comments POC-GLUCOSE METER 132 mg/dL 70-110 H : [facility] ([facility]ER[facility] (test code = BHAVNA [place], 1538) [id number]: Hr Director/Techni maikol ID = [id number] for Marina primitivodon (contract), [facility] CALCIUM, [id number] 19:49:18 Test Item Value Reference Range Interpretation Comments CALCIUM IONIZED (BEAKER) (test 1.08 mmol/L 1.12-1.27 L code = 698) PH, BLOOD (BEAKER) (test code = 7.43 1810) HGB/HCT (H&H) - STAT [id number] 19:49:06 Test Item Value Reference Range Interpretation Comments HEMOGLOBIN (BEAKER) (test code = 10.1 GM/DL 13.0-16.8 L 410) HEMATOCRIT (BEAKER) (test code = 30.0 % 40.0-50.0 L 411) BLOOD GAS, [id number] 19:49:05 Test Item Value Reference Range Interpretation Comments PH ARTERIAL (BEAKER) (test code = 7.43 7.35-7.45 383) PCO2 ARTERIAL (BEAKER) (test code 33 mm Hg 35-45 L = 384) PO2 ARTERIAL (BEAKER) (test code 122 mm Hg 80-90 H = 385) O2 SATURATION ARTERIAL (BEAKER) 98.5 % 96.0-97.0 H (test code = 386) HCO3 ARTERIAL (BEAKER) (test code 22 mmol/L 21-29 = 388) BASE EXCESS ARTERIAL (BEAKER) -2.2 mmol/L -2.0-3.0 L (test code = 387) PATIENT TEMPERATURE (BEAKER) 37.0 (test code = 1818) FIO2 (BEAKER) (test code = 1819) 21.0 POTASSIUM-STAT [id number] 19:48:11 Test Item Value Reference Range Interpretation Comments POTASSIUM (BEAKER) (test code = 4.4 meq/L 3.6-5.5 379) GLUCOSE-STAT [id number] 19:48:10 Test Item Value Reference Range Interpretation Comments GLUCOSE RANDOM (BEAKER) (test code 163 mg/dL 70-110 H = 652) SODIUM NA-STAT [id number] 19:48:10 Test Item Value Reference Range Interpretation Comments SODIUM (BEAKER) (test code = 381) 138 meq/L 136-145 LACTIC ACID, [id number] 17:37:08 Test Item Value Reference Range Interpretation Comments LACTATE BLOOD ARTERIAL (2) 4.2 mmol/L 0.5-2.0 HH (BEAKER) (test code = 2874) Hr Director ID - BSHGB/HCT (H&H) - STAT [id number] 17:21:22 Test Item Value Reference Range Interpretation Comments HEMOGLOBIN (BEAKER) (test code = 9.7 GM/DL 13.0-16.8 L 410) HEMATOCRIT (BEAKER) (test code = 29.0 % 40.0-50.0 L 411) BLOOD GAS, [id number] 17:21:21 Test Item Value Reference Range Interpretation Comments PH ARTERIAL (BEAKER) (test code = 7.46 7.35-7.45 H 383) PCO2 ARTERIAL (BEAKER) (test code 25 mm Hg 35-45 L = 384) PO2 ARTERIAL (BEAKER) (test code 158 mm Hg 80-90 H = 385) O2 SATURATION ARTERIAL (BEAKER) 99.2 % 96.0-97.0 H (test code = 386) HCO3 ARTERIAL (BEAKER) (test code 18 mmol/L 21-29 L = 388) BASE EXCESS ARTERIAL (BEAKER) -5.2 mmol/L -2.0-3.0 L (test code = 387) PATIENT TEMPERATURE (BEAKER) 36.7 (test code = 1818) FIO2 (BEAKER) (test code = 1819) 60.0 SODIUM NA-STAT [id number] 17:21:08 Test Item Value Reference Range Interpretation Comments SODIUM (BEAKER) (test code = 381) 137 meq/L 136-145 POTASSIUM-STAT [id number] 17:21:08 Test Item Value Reference Range Interpretation Comments POTASSIUM (BEAKER) (test code = 4.1 meq/L 3.6-5.5 379) GLUCOSE-STAT [id number] 17:21:07 Test Item Value Reference Range Interpretation Comments GLUCOSE RANDOM (BEAKER) (test code 149 mg/dL 70-110 H = 652) RAD, CHEST, 1 VIEW, NON [id number] 16:10:00Reason for exam:->post opShould this be performed at the bedside?->Yes [facility] 1950 Sex: MFINAL REPORT RAD, CHEST, 1 VIEW, NON DEPT TECHNIQUE: Frontal view(s) of the chest.INDICATION: post op COMPARISON: Chest radiograph 08/15/2022 FINDINGS/IMPRESSION: Lines/Tubes: Right IJ Raymond-Robert catheter is seen with tip at the pulmonary outflow tract. Endotracheal tube is seen. Enteric tube is present with tip below the field of view. Lungs/pleura: Bibasilar atelectasis. Small bilateral pleural effusions. No pneumothorax. Heart and Mediastinum: Unchanged. Soft Tissues and Bones: Unchanged. Signed: Mohsen Gray Verified Date/Time: 08/24/2022 16:10:03 COMPREHENSIVE METABOLIC [id number] 15:18:28 Test Item Value Reference Range Interpretation Comments TOTAL PROTEIN 4.9 gm/dL 6.0-8.3 L Specimen sligh tly (BEAKER) (test hemolyzed code = 770) ALBUMIN (BEAKER) 2.6 g/dL 3.5-5.0 L Specimen sl ightly (test code = 1145) hemolyzed ALKALINE 35 U/L 40-150 L PHOSPHATASE (BEAKER) (test code = 346) BILIRUBIN TOTAL 0.8 mg/dL 0.2-1.2 Specimen sli ghtly (BEAKER) (test hemolyzed code = 377) SODIUM (BEAKER) 140 meq/L 136-145 (test code = 381) POTASSIUM (BEAKER) 4.6 meq/L 3.5-5.1 Specimen slightly (test code = 379) hemolyzed CHLORIDE (BEAKER) 114 meq/L 98-107 H (test code = 382) CO2 (BEAKER) (test 20 meq/L 22-29 L code = 355) BLOOD UREA 19 mg/dL 7-21 NITROGEN (BEAKER) (test code = 354) CREATININE 1.19 mg/dL 0.57-1.25 Specimen slight ly (BEAKER) (test hemolyzed code = 358) GLUCOSE RANDOM 205 mg/dL 70-105 H (BEAKER) (test code = 652) CALCIUM (BEAKER) 8.9 mg/dL 8.4-10.2 (test code = 697) AST (SGOT) 50 U/L 5-34 H Specimen slight ly (BEAKER) (test hemolyzed code = 353) ALT (SGPT) 22 U/L 6-55 Specimen slight ly (BEAKER) (test hemolyzed code = 347) EGFR (BEAKER) 65 Interpretatio n of eGFR (test code = 1092) mL/min/1.[address] age Description sq m Result G1 Effie l or high >=90 G2 Mildly decreased 60-89 G3a Mildl y to moderately 45-5 9 G3b Moderately to s everely 30-44 G4 Severl y decreased 15-29 G5 Kidney failure <15Reported eGF R is based on the CKD-EPI 2020 equation that d oes not use a race coefficientEsti mated GFR is not as accur ate as Creatinine Jessica phil in predicting glom erular filtration rate . Estimated GFR is not appl icable for dialysis patien ts Hr Director ID - [id number] 15:18:27 Test Item Value Reference Range Interpretation Comments MAGNESIUM (BEAKER) 1.6 mg/dL 1.6-2.6 Specimen slightly (test code = 627) hemolyzed Hr Director ID - [id number] 15:18:27 Test Item Value Reference Range Interpretation Comments PHOSPHORUS (BEAKER) 4.6 mg/dL 2.3-4.7 Specimen slightly (test code = 604) hemolyzed Hr Director ID - [id number] 15:11:03 Test Item Value Reference Range Interpretation Comments PROTIME (BEAKER) (test code = 22.8 seconds 11.9-14.2 H 759) INR (BEAKER) (test code = 370) 2.17 <=5.90 PARTIAL THROMBOPLASTIN TIME 39.6 seconds 22.5-36.0 H (BEAKER) (test code = 760) RECOMMENDED COUMADIN/WARFARIN INR THERAPY RANGESSTANDARD DOSE: 2.0 - 3.0 Includes: PROPHYLAXIS for venous thrombosis, systemic embolization; TREATMENT for venous thrombosis and/or pulmonary embolus.HIGH RISK: Target INR is 2.5-3.5 for patients with mechanical heart valves.[id number] 15:10:44 Test Item Value Reference Range Interpretation Comments FIBRINOGEN LEVEL (BEAKER) (test 287 mg/dl 225-434 code = 658) PROTHROMBIN [id number] 15:10:22 Test Item Value Reference Range Interpretation Comments PROTIME (BEAKER) (test code = 22.8 seconds 11.9-14.2 H 759) INR (BEAKER) (test code = 370) 2.17 <=5.90 RECOMMENDED COUMADIN/WARFARIN INR THERAPY RANGESSTANDARD DOSE: 2.0 - 3.0 Includes: PROPHYLAXIS for venous thrombosis, systemic embolization; TREATMENT for venous thrombosis and/or pulmonary embolus.HIGH RISK: Target INR is 2.5-3.5 for patients with mechanical heart valves.CBC W/PLT COUNT & AUTO [id number] 15:05:20 Test Item Value Reference Range Interpretation Comments WHITE BLOOD CELL COUNT (BEAKER) 26.4 K/ L 3.5-10.5 H (test code = 775) RED BLOOD CELL COUNT (BEAKER) 3.23 M/ L 4.63-6.08 L (test code = 761) HEMOGLOBIN (BEAKER) (test code = 9.9 GM/DL 13.7-17.5 L 410) HEMATOCRIT (BEAKER) (test code = 30.4 % 40.1-51.0 L 411) MEAN CORPUSCULAR VOLUME (BEAKER) 94 fL 79-92 H (test code = 753) MEAN CORPUSCULAR HEMOGLOBIN 30.7 pg 25.7-32.2 (BEAKER) (test code = 751) MEAN CORPUSCULAR HEMOGLOBIN CONC 32.6 GM/DL 32.3-36.5 (BEAKER) (test code = 752) RED CELL DISTRIBUTION WIDTH 13.1 % 11.6-14.4 (BEAKER) (test code = 412) PLATELET COUNT (BEAKER) (test 122 K/CU MM 150-450 L code = 756) MEAN PLATELET VOLUME (BEAKER) 11.0 fL 9.4-12.4 (test code = 754) NUCLEATED RED BLOOD CELLS 0 /100 WBC 0-0 (BEAKER) (test code = 413) LACTIC ACID, [id number] 15:05:19 Test Item Value Reference Range Interpretation Comments LACTATE BLOOD 2.3 mmol/L 0.5-2.0 H Specimen sligh tly ARTERIAL (2) (BEAKER) hemoly zed (test code = 2874) Hr Director ID - BSHGB/HCT (H&H) - STAT [id number] 14:48:09 Test Item Value Reference Range Interpretation Comments HEMOGLOBIN (BEAKER) (test code = 10.8 GM/DL 13.0-16.8 L 410) HEMATOCRIT (BEAKER) (test code = 32.0 % 40.0-50.0 L 411) BLOOD GAS, [id number] 14:48:08 Test Item Value Reference Range Interpretation Comments PH ARTERIAL (BEAKER) (test code = 7.40 7.35-7.45 383) PCO2 ARTERIAL (BEAKER) (test code 34 mm Hg 35-45 L = 384) PO2 ARTERIAL (BEAKER) (test code 142 mm Hg 80-90 H = 385) O2 SATURATION ARTERIAL (BEAKER) 98.9 % 96.0-97.0 H (test code = 386) HCO3 ARTERIAL (BEAKER) (test code 20 mmol/L 21-29 L = 388) BASE EXCESS ARTERIAL (BEAKER) -4.1 mmol/L -2.0-3.0 L (test code = 387) PATIENT TEMPERATURE (BEAKER) 36.1 (test code = 1818) FIO2 (BEAKER) (test code = 1819) 50.0 CALCIUM, [id number] 14:47:51 Test Item Value Reference Range Interpretation Comments CALCIUM IONIZED (BEAKER) (test 1.24 mmol/L 1.12-1.27 code = 698) PH, BLOOD (BEAKER) (test code = 7.38 1810) OXYGEN SATURATION, [id number] 14:47:35 Test Item Value Reference Range Interpretation Comments O2 SATURATION (MEASURED) (BEAKER) 72.2 % (test code = 1455) SODIUM NA-STAT [id number] 14:47:14 Test Item Value Reference Range Interpretation Comments SODIUM (BEAKER) (test code = 381) 138 meq/L 136-145 POTASSIUM-STAT [id number] 14:47:14 Test Item Value Reference Range Interpretation Comments POTASSIUM (BEAKER) (test code = 4.4 meq/L 3.6-5.5 379) GLUCOSE-STAT [id number] 14:47:13 Test Item Value Reference Range Interpretation Comments GLUCOSE RANDOM (BEAKER) (test code 204 mg/dL 70-110 H = 652) HGB/HCT (H&H) - STAT [id number] 13:49:15 Test Item Value Reference Range Interpretation Comments HEMOGLOBIN (BEAKER) (test code = 11.7 GM/DL 13.0-16.8 L 410) HEMATOCRIT (BEAKER) (test code = 34.0 % 40.0-50.0 L 411) CALCIUM, [id number] 13:49:14 Test Item Value Reference Range Interpretation Comments CALCIUM IONIZED (BEAKER) (test 1.11 mmol/L 1.12-1.27 L code = 698) PH, BLOOD (BEAKER) (test code = 7.28 1810) BLOOD GAS, [id number] 13:49:14 Test Item Value Reference Range Interpretation Comments PH ARTERIAL (BEAKER) (test code = 7.29 7.35-7.45 L 383) PCO2 ARTERIAL (BEAKER) (test code 44 mm Hg 35-45 = 384) PO2 ARTERIAL (BEAKER) (test code 157 mm Hg 80-90 H = 385) O2 SATURATION ARTERIAL (BEAKER) 98.8 % 96.0-97.0 H (test code = 386) HCO3 ARTERIAL (BEAKER) (test code 21 mmol/L 21-29 = 388) BASE EXCESS ARTERIAL (BEAKER) -5.7 mmol/L -2.0-3.0 L (test code = 387) PATIENT TEMPERATURE (BEAKER) 36.6 (test code = 1818) FIO2 (BEAKER) (test code = 1819) 100.0 POTASSIUM-STAT [id number] 13:49:02 Test Item Value Reference Range Interpretation Comments POTASSIUM (BEAKER) (test code = 4.4 meq/L 3.6-5.5 379) SODIUM NA-STAT [id number] 13:49:01 Test Item Value Reference Range Interpretation Comments SODIUM (BEAKER) (test code = 381) 137 meq/L 136-145 GLUCOSE-STAT [id number] 13:48:56 Test Item Value Reference Range Interpretation Comments GLUCOSE RANDOM (BEAKER) (test code 237 mg/dL 70-110 H = 652) [id number] 13:28:17 Test Item Value Reference Range Interpretation Comments PTT (test code = 49416-1) 35.4 See_Comment [ Automated message] The system Clari generated this result transmitted ref erence range: 22.5 - 3 6.0 seconds. The re ference range was not u sed to interpret this result as normal/abnor mal. Lab Interpretation (test Normal code = 29900-1) [id number] 13:28:17 Test Item Value Reference Range Interpretation Comments PARTIAL THROMBOPLASTIN TIME 35.4 seconds 22.5-36.0 (BEAKER) (test code = 760) [id number] 13:27:53 Test Item Value Reference Range Interpretation Comments FIBRINOGEN LEVEL (BEAKER) (test 336 mg/dl 225-434 code = 658) PROTHROMBIN [id number] 13:27:36 Test Item Value Reference Range Interpretation Comments PROTIME (BEAKER) (test code = 24.7 seconds 11.9-14.2 H 759) INR (BEAKER) (test code = 370) 2.41 <=5.90 RECOMMENDED COUMADIN/WARFARIN INR THERAPY RANGESSTANDARD DOSE: 2.0 - 3.0 Includes: PROPHYLAXIS for venous thrombosis, systemic embolization; TREATMENT for venous thrombosis and/or pulmonary embolus.HIGH RISK: Target INR is 2.5-3.5 for patients with mechanical heart valves.Platelet [id number] 13:24:21 Test Item Value Reference Range Interpretation Comments Platelets (test code 139 See_Comment L OR samp le = 777-3) [Automated message] The system which generated this result transmit ronaldo reference range : 150 - 450 K/CU MM. The reference range was not u sed to interpret th is result as normal/abnormal . SWEETIE (test code = SWEETIE) Hr Director ID - [id number] Lab Interpretation Abnormal (test code = 67573-9) [facility] [id number] 13:24:21 Test Item Value Reference Range Interpretation Comments PLATELET COUNT (BEAKER) (test 139 K/CU MM 150-450 L OR sample code = 756) Hr Director ID - [id number] GAS, [id number] 13:06:54 Test Item Value Reference Range Interpretation Comments PH ARTERIAL (BEAKER) (test code = 7.34 7.35-7.45 L 383) PCO2 ARTERIAL (BEAKER) (test code 40 mm Hg 35-45 = 384) PO2 ARTERIAL (BEAKER) (test code 173 mm Hg 80-90 H = 385) O2 SATURATION ARTERIAL (BEAKER) 99.1 % 96.0-97.0 H (test code = 386) HCO3 ARTERIAL (BEAKER) (test code 21 mmol/L 21-29 = 388) BASE EXCESS ARTERIAL (BEAKER) -4.5 mmol/L -2.0-3.0 L (test code = 387) PATIENT TEMPERATURE (BEAKER) 36.0 (test code = 1818) FIO2 (BEAKER) (test code = 1819) 100.0 HGB/HCT (H&H) - STAT [id number] 13:06:54 Test Item Value Reference Range Interpretation Comments HEMOGLOBIN (BEAKER) (test code = 8.7 GM/DL 13.0-16.8 L 410) HEMATOCRIT (BEAKER) (test code = 26.0 % 40.0-50.0 L 411) CALCIUM, [id number] 13:06:48 Test Item Value Reference Range Interpretation Comments CALCIUM IONIZED (BEAKER) (test 1.27 mmol/L 1.12-1.27 code = 698) PH, BLOOD (BEAKER) (test code = 7.33 1810) GLUCOSE-STAT [id number] 13:06:31 Test Item Value Reference Range Interpretation Comments GLUCOSE RANDOM (BEAKER) (test code 258 mg/dL 70-110 H = 652) POTASSIUM-STAT [id number] 13:06:31 Test Item Value Reference Range Interpretation Comments POTASSIUM (BEAKER) (test code = 5.0 meq/L 3.6-5.5 379) SODIUM NA-STAT [id number] 13:06:30 Test Item Value Reference Range Interpretation Comments SODIUM (BEAKER) (test code = 381) 135 meq/L 136-145 L POTASSIUM-STAT [id number] 12:30:24 Test Item Value Reference Range Interpretation Comments POTASSIUM (BEAKER) (test code = 6.2 meq/L 3.6-5.5 HH 379) BLOOD GAS, [id number] 12:29:36 Test Item Value Reference Range Interpretation Comments PH ARTERIAL (BEAKER) (test code = 7.41 7.35-7.45 383) PCO2 ARTERIAL (BEAKER) (test code 40 mm Hg 35-45 = 384) PO2 ARTERIAL (BEAKER) (test code = 291 mm Hg 80-90 H 385) O2 SATURATION ARTERIAL (BEAKER) 99.7 % 96.0-97.0 H (test code = 386) HCO3 ARTERIAL (BEAKER) (test code 25 mmol/L 21-29 = 388) BASE EXCESS ARTERIAL (BEAKER) 0.1 mmol/L -2.0-3.0 (test code = 387) PATIENT TEMPERATURE (BEAKER) (test 36.4 code = 1818) FIO2 (BEAKER) (test code = 1819) 80.0 HGB/HCT (H&H) - STAT [id number] 12:29:36 Test Item Value Reference Range Interpretation Comments HEMOGLOBIN (BEAKER) (test code = 8.8 GM/DL 13.0-16.8 L 410) HEMATOCRIT (BEAKER) (test code = 26.0 % 40.0-50.0 L 411) SODIUM NA-STAT [id number] 12:29:18 Test Item Value Reference Range Interpretation Comments SODIUM (BEAKER) (test code = 381) 135 meq/L 136-145 L GLUCOSE-STAT [id number] 12:29:17 Test Item Value Reference Range Interpretation Comments GLUCOSE RANDOM (BEAKER) (test code 253 mg/dL 70-110 H = 652) POTASSIUM-STAT [id number] 12:00:04 Test Item Value Reference Range Interpretation Comments POTASSIUM (BEAKER) (test code = 6.5 meq/L 3.6-5.5 HH 379) HGB/HCT (H&H) - STAT [id number] 11:58:32 Test Item Value Reference Range Interpretation Comments HEMOGLOBIN (BEAKER) (test code = 9.0 GM/DL 13.0-16.8 L 410) HEMATOCRIT (BEAKER) (test code = 26.0 % 40.0-50.0 L 411) BLOOD GAS, [id number] 11:58:31 Test Item Value Reference Range Interpretation Comments PH ARTERIAL (BEAKER) (test code = 7.37 7.35-7.45 383) PCO2 ARTERIAL (BEAKER) (test code 40 mm Hg 35-45 = 384) PO2 ARTERIAL (BEAKER) (test code 320 mm Hg 80-90 H = 385) O2 SATURATION ARTERIAL (BEAKER) 99.7 % 96.0-97.0 H (test code = 386) HCO3 ARTERIAL (BEAKER) (test code 24 mmol/L 21-29 = 388) BASE EXCESS ARTERIAL (BEAKER) -2.6 mmol/L -2.0-3.0 L (test code = 387) PATIENT TEMPERATURE (BEAKER) 32.1 (test code = 1818) FIO2 (BEAKER) (test code = 1819) 70.0 SODIUM NA-STAT [id number] 11:58:31 Test Item Value Reference Range Interpretation Comments SODIUM (BEAKER) (test code = 381) 132 meq/L 136-145 L GLUCOSE-STAT [id number] 11:58:17 Test Item Value Reference Range Interpretation Comments GLUCOSE RANDOM (BEAKER) (test code 261 mg/dL 70-110 H = 652) SODIUM NA-STAT [id number] 11:22:06 Test Item Value Reference Range Interpretation Comments SODIUM (BEAKER) (test code = 381) 129 meq/L 136-145 L HGB/HCT (H&H) - STAT [id number] 11:22:06 Test Item Value Reference Range Interpretation Comments HEMOGLOBIN (BEAKER) (test code = 9.0 GM/DL 13.0-16.8 L 410) HEMATOCRIT (BEAKER) (test code = 26.0 % 40.0-50.0 L 411) BLOOD GAS, [id number] 11:22:05 Test Item Value Reference Range Interpretation Comments PH ARTERIAL (BEAKER) (test code = 7.36 7.35-7.45 383) PCO2 ARTERIAL (BEAKER) (test code 42 mm Hg 35-45 = 384) PO2 ARTERIAL (BEAKER) (test code 333 mm Hg 80-90 H = 385) O2 SATURATION ARTERIAL (BEAKER) 99.7 % 96.0-97.0 H (test code = 386) HCO3 ARTERIAL (BEAKER) (test code 25 mmol/L 21-29 = 388) BASE EXCESS ARTERIAL (BEAKER) -1.9 mmol/L -2.0-3.0 (test code = 387) PATIENT TEMPERATURE (BEAKER) 32.6 (test code = 1818) FIO2 (BEAKER) (test code = 1819) 70.0 POTASSIUM-STAT [id number] 11:22:00 Test Item Value Reference Range Interpretation Comments POTASSIUM (BEAKER) (test code = 6.2 meq/L 3.6-5.5 HH 379) GLUCOSE-STAT [id number] 11:21:39 Test Item Value Reference Range Interpretation Comments GLUCOSE RANDOM (BEAKER) (test code 252 mg/dL 70-110 H = 652) BLOOD GAS, [id number] 10:49:31 Test Item Value Reference Range Interpretation Comments PH ARTERIAL (BEAKER) (test code = 7.36 7.35-7.45 383) PCO2 ARTERIAL (BEAKER) (test code 37 mm Hg 35-45 = 384) PO2 ARTERIAL (BEAKER) (test code 394 mm Hg 80-90 H = 385) O2 SATURATION ARTERIAL (BEAKER) 99.8 % 96.0-97.0 H (test code = 386) HCO3 ARTERIAL (BEAKER) (test code 21 mmol/L 21-29 = 388) BASE EXCESS ARTERIAL (BEAKER) -4.8 mmol/L -2.0-3.0 L (test code = 387) PATIENT TEMPERATURE (BEAKER) 35.5 (test code = 1818) FIO2 (BEAKER) (test code = 1819) 80.0 SODIUM NA-STAT [id number] 10:49:31 Test Item Value Reference Range Interpretation Comments SODIUM (BEAKER) (test code = 381) 129 meq/L 136-145 L HGB/HCT (H&H) - STAT [id number] 10:49:31 Test Item Value Reference Range Interpretation Comments HEMOGLOBIN (BEAKER) (test code = 9.3 GM/DL 13.0-16.8 L 410) HEMATOCRIT (BEAKER) (test code = 27.0 % 40.0-50.0 L 411) GLUCOSE-STAT [id number] 10:49:11 Test Item Value Reference Range Interpretation Comments GLUCOSE RANDOM (BEAKER) (test code 178 mg/dL 70-110 H = 652) POTASSIUM-STAT [id number] 10:49:11 Test Item Value Reference Range Interpretation Comments POTASSIUM (BEAKER) (test code = 5.4 meq/L 3.6-5.5 379) HGB/HCT (H&H) - STAT [id number] 08:09:53 Test Item Value Reference Range Interpretation Comments HEMOGLOBIN (BEAKER) (test code = 12.5 GM/DL 13.0-16.8 L 410) HEMATOCRIT (BEAKER) (test code = 37.0 % 40.0-50.0 L 411) BLOOD GAS, [id number] 08:09:52 Test Item Value Reference Range Interpretation Comments PH ARTERIAL (BEAKER) (test code = 7.50 7.35-7.45 H 383) PCO2 ARTERIAL (BEAKER) (test code 29 mm Hg 35-45 L = 384) PO2 ARTERIAL (BEAKER) (test code = 406 mm Hg 80-90 H 385) O2 SATURATION ARTERIAL (BEAKER) 99.9 % 96.0-97.0 H (test code = 386) HCO3 ARTERIAL (BEAKER) (test code 23 mmol/L 21-29 = 388) BASE EXCESS ARTERIAL (BEAKER) 0.1 mmol/L -2.0-3.0 (test code = 387) PATIENT TEMPERATURE (BEAKER) (test 36.0 code = 1818) FIO2 (BEAKER) (test code = 1819) 100.0 CALCIUM, [id number] 08:09:41 Test Item Value Reference Range Interpretation Comments CALCIUM IONIZED (BEAKER) (test 1.13 mmol/L 1.12-1.27 code = 698) PH, BLOOD (BEAKER) (test code = 7.49 1810) SODIUM NA-STAT [id number] 08:09:24 Test Item Value Reference Range Interpretation Comments SODIUM (BEAKER) (test code = 381) 135 meq/L 136-145 L POTASSIUM-STAT [id number] 08:09:24 Test Item Value Reference Range Interpretation Comments POTASSIUM (BEAKER) (test code = 4.7 meq/L 3.6-5.5 379) GLUCOSE-STAT [id number] 08:09:23 Test Item Value Reference Range Interpretation Comments GLUCOSE RANDOM (BEAKER) (test code 135 mg/dL 70-110 H = 652) BASIC METABOLIC [id number] 04:54:21 Test Item Value Reference Range Interpretation Comments SODIUM (BEAKER) 135 meq/L 136-145 L (test code = 381) POTASSIUM 4.6 meq/L 3.5-5.1 (BEAKER) (test code = 379) CHLORIDE (BEAKER) 102 meq/L 98-107 (test code = 382) CO2 (BEAKER) 23 meq/L 22-29 (test code = 355) BLOOD UREA 25 mg/dL 7-21 H NITROGEN (BEAKER) (test code = 354) CREATININE 1.47 mg/dL 0.57-1.25 H (BEAKER) (test code = 358) GLUCOSE RANDOM 128 mg/dL 70-105 H (BEAKER) (test code = 652) CALCIUM (BEAKER) 9.3 mg/dL 8.4-10.2 (test code = 697) EGFR (BEAKER) 51 Interpretatio n of eGFR (test code = mL/min/1.73 values Stage De scription 1092) sq m Result G1 Effie l or high >=90 G2 Mildly decreased 60-89 G3a Mildl y to moderately 45-5 9 G3b Moderately to s everely 30-44 G4 Severl y decreased 15-29 G5 Kidney failure <15Reported eGF R is based on the CKD-EPI 2020 equation that d oes not use a race coefficientEsti mated GFR is not as accur ate as Creatinine Jessica phil in predicting glom erular filtration rate . Estimated GFR is not appl icable for dialysis patien ts Hr Director ID - [id number] 04:42:34 Test Item Value Reference Range Interpretation Comments PARTIAL THROMBOPLASTIN TIME 67.2 seconds 22.5-36.0 H (BEAKER) (test code = 760) CBC (HEMOGRAM ONLY)2022-08-24 04:21:09 Test Item Value Reference Range Interpretation Comments WHITE BLOOD CELL COUNT (BEAKER) 10.6 K/ L 3.5-10.5 H (test code = 775) RED BLOOD CELL COUNT (BEAKER) 4.03 M/ L 4.63-6.08 L (test code = 761) HEMOGLOBIN (BEAKER) (test code = 12.2 GM/DL 13.7-17.5 L 410) HEMATOCRIT (BEAKER) (test code = 37.1 % 40.1-51.0 L 411) MEAN CORPUSCULAR VOLUME (BEAKER) 92 fL 79-92 (test code = 753) MEAN CORPUSCULAR HEMOGLOBIN 30.3 pg 25.7-32.2 (BEAKER) (test code = 751) MEAN CORPUSCULAR HEMOGLOBIN CONC 32.9 GM/DL 32.3-36.5 (BEAKER) (test code = 752) RED CELL DISTRIBUTION WIDTH 13.0 % 11.6-14.4 (BEAKER) (test code = 412) PLATELET COUNT (BEAKER) (test 358 K/CU MM 150-450 code = 756) MEAN PLATELET VOLUME (BEAKER) 11.3 fL 9.4-12.4 (test code = 754) NUCLEATED RED BLOOD CELLS 0 /100 WBC 0-0 (BEAKER) (test code = 413) POCT-GLUCOSE [id number] 21:31:04 Test Item Value Reference Range Interpretation Comments POC-GLUCOSE METER 159 mg/dL 70-110 H : TESTED A T [facility] 6720 (BEAKER) (test code = [facility], 1538) 18099: Hr Director/Techni maikol ID = [id number] for Br Jose jean baptiste POCT-GLUCOSE [id number] 17:31:14 Test Item Value Reference Range Interpretation Comments POC-GLUCOSE METER 119 mg/dL 70-110 H : TESTED A T [facility] 6720 (BEAKER) (test code = [facility], 1538) 40653: Hr Director/Techni maikol ID = [id number] for OR PHEY, ELIAS POCT-GLUCOSE [id number] 12:16:24 Test Item Value Reference Range Interpretation Comments POC-GLUCOSE METER 142 mg/dL 70-110 H : TESTED A T [facility] 6720 (BEAKER) (test code = [facility], 1538) 06595: Hr Director/Techni maikol ID = [id number] for OR PHEY ELIAS POCT-GLUCOSE [id number] 08:02:24 Test Item Value Reference Range Interpretation Comments POC-GLUCOSE METER 147 mg/dL 70-110 H : TESTED A T [facility] 6720 (BEAKER) (test code = [facility], 1538) 09105: Hr Director/Techni maikol ID = [id number] for OR PHEY ELIAS BASIC METABOLIC [id number] 06:24:24 Test Item Value Reference Range Interpretation Comments SODIUM (BEAKER) 135 meq/L 136-145 L (test code = 381) POTASSIUM 4.7 meq/L 3.5-5.1 (BEAKER) (test code = 379) CHLORIDE (BEAKER) 102 meq/L 98-107 (test code = 382) CO2 (BEAKER) 24 meq/L 22-29 (test code = 355) BLOOD UREA 24 mg/dL 7-21 H NITROGEN (BEAKER) (test code = 354) CREATININE 1.44 mg/dL 0.57-1.25 H (BEAKER) (test code = 358) GLUCOSE RANDOM 133 mg/dL 70-105 H (BEAKER) (test code = 652) CALCIUM (BEAKER) 9.7 mg/dL 8.4-10.2 (test code = 697) EGFR (BEAKER) 52 Interpretatio n of eGFR (test code = mL/min/1.73 values Stage De scription 1092) sq m Result G1 Effie l or high >=90 G2 Mildly decreased 60-89 G3a Mildl y to moderately 45-5 9 G3b Moderately to s everely 30-44 G4 Severl y decreased 15-29 G5 Kidney failure <15Reported eGF R is based on the CKD-EPI 2020 equation that d oes not use a race coefficientEsti mated GFR is not as accur ate as Creatinine Jessica phil in predicting glom erular filtration rate . Estimated GFR is not appl icable for dialysis patien ts Hr Director ID - [id number] 06:13:21 Test Item Value Reference Range Interpretation Comments PARTIAL THROMBOPLASTIN TIME 62.0 seconds 22.5-36.0 H (BEAKER) (test code = 760) [id number] 06:12:21 Test Item Value Reference Range Interpretation Comments PARTIAL THROMBOPLASTIN TIME 67.6 seconds 22.5-36.0 H (BEAKER) (test code = 760) POCT-GLUCOSE [id number] 22:07:45 Test Item Value Reference Range Interpretation Comments POC-GLUCOSE METER 143 mg/dL 70-110 H : TESTED A T [facility] 6720 (BEAKER) (test code = [facility], 153) 14118: Hr Director/Techni maikol ID = [id number] for Br Mendel jean baptistea POCT-GLUCOSE [id number] 17:18:02 Test Item Value Reference Range Interpretation Comments POC-GLUCOSE METER 162 mg/dL 70-110 H : TESTED A T [facility] 6720 (BEAKER) (test code = [facility], 1538) 84683: Hr Director/Techni maikol ID = [id number] for ANDREI HN, ADI POCT-GLUCOSE [id number] 12:05:28 Test Item Value Reference Range Interpretation Comments POC-GLUCOSE METER 155 mg/dL 70-110 H : TESTED A T [facility] 6720 (BEAKER) (test code = [facility], 1538) 80737: Hr Director/Techni maikol ID = [id number] for ANDREI HN, ADI POCT-GLUCOSE [id number] 07:40:55 Test Item Value Reference Range Interpretation Comments POC-GLUCOSE METER 144 mg/dL 70-110 H : TESTED A T [facility]20 (BEAKER) (test code = [facility] [place], 1538) 09445: Hr Director/Techni maikol ID = [id number] for ADI CHACON BASIC METABOLIC [id number] 02:07:39 Test Item Value Reference Range Interpretation Comments SODIUM (BEAKER) 134 meq/L 136-145 L (test code = 381) POTASSIUM 4.4 meq/L 3.5-5.1 (BEAKER) (test code = 379) CHLORIDE (BEAKER) 100 meq/L 98-107 (test code = 382) CO2 (BEAKER) 24 meq/L 22-29 (test code = 355) BLOOD UREA 21 mg/dL 7-21 NITROGEN (BEAKER) (test code = 354) CREATININE 1.24 mg/dL 0.57-1.25 (BEAKER) (test code = 358) GLUCOSE RANDOM 131 mg/dL 70-105 H (BEAKER) (test code = 652) CALCIUM (BEAKER) 9.2 mg/dL 8.4-10.2 (test code = 697) EGFR (BEAKER) 62 Interpretatio n of eGFR (test code = mL/min/1.73 values Stage De scription 1092) sq m Result G1 Effie l or high >=90 G2 Mildly decreased 60-89 G3a Mildl y to moderately 45-5 9 G3b Moderately to s everely 30-44 G4 Severl y decreased 15-29 G5 Kidney failure <15Reported eGF R is based on the CKD-EPI 2021 equation that d oes not use a race coefficientEsti mated GFR is not as accur ate as Creatinine Jessica villarreal in predicting glom erular filtration rate . Estimated GFR is not appl icable for dialysis patien ts Hr Director ID - [id number] 01:54:03 Test Item Value Reference Range Interpretation Comments PARTIAL THROMBOPLASTIN TIME 66.5 seconds 22.5-36.0 H (BEAKER) (test code = 760) POCT-GLUCOSE [id number] 20:58:51 Test Item Value Reference Range Interpretation Comments POC-GLUCOSE METER 130 mg/dL 70-110 H : TESTED A T [facility] 6720 (BEAKER) (test code = [facility], 1538) 02158: Hr Director/Techni maikol ID = [id number] for FOREST BERMAN [id number] 18:59:33 Test Item Value Reference Range Interpretation Comments PARTIAL THROMBOPLASTIN TIME 64.1 seconds 22.5-36.0 H (BEAKER) (test code = 760) POCT-GLUCOSE [id number] 17:30:38 Test Item Value Reference Range Interpretation Comments POC-GLUCOSE METER 154 mg/dL 70-110 H : TESTED A T [facility] 6720 (BEAKER) (test code = [facility], 1538) 81508: Hr Director/Techni maikol ID = [id number] for ADI CHACON POCT-GLUCOSE [id number] 17:00:05 Test Item Value Reference Range Interpretation Comments POC-GLUCOSE METER 190 mg/dL 70-110 H : TESTED A T [facility] 6720 (BEAKER) (test code = [facility], 153) 19587: Hr Director/Techni maikol ID = [id number] for Ba rrera, Yolanda [id number] 11:30:12 Test Item Value Reference Range Interpretation Comments PARTIAL THROMBOPLASTIN TIME 103.9 seconds 22.5-36.0 H (BEAKER) (test code = 760) POCT-GLUCOSE [id number] 07:32:04 Test Item Value Reference Range Interpretation Comments POC-GLUCOSE METER 131 mg/dL 70-110 H : TESTED A T [facility] 6720 (BEAKER) (test code = [facility], 153) 87627: Hr Director/Techni maikol ID = [id number] for Ba rrera, Yolanda [id number] 05:00:02 Test Item Value Reference Range Interpretation Comments PARTIAL THROMBOPLASTIN TIME 108.5 seconds 22.5-36.0 H (BEAKER) (test code = 760) BASIC METABOLIC [id number] 04:54:16 Test Item Value Reference Range Interpretation Comments SODIUM (BEAKER) 137 meq/L 136-145 (test code = 381) POTASSIUM 4.3 meq/L 3.5-5.1 (BEAKER) (test code = 379) CHLORIDE (BEAKER) 101 meq/L 98-107 (test code = 382) CO2 (BEAKER) 25 meq/L 22-29 (test code = 355) BLOOD UREA 21 mg/dL 7-21 NITROGEN (BEAKER) (test code = 354) CREATININE 1.34 mg/dL 0.57-1.25 H (BEAKER) (test code = 358) GLUCOSE RANDOM 120 mg/dL 70-105 H (BEAKER) (test code = 652) CALCIUM (BEAKER) 9.2 mg/dL 8.4-10.2 (test code = 697) EGFR (BEAKER) 57 Interpretati on of eGFR (test code = mL/min/1.73 values Stage De scription 1092) sq m Result G1 Effie l or high >=90 G2 Mildly decreased 60-89 G3a Mildl y to moderately 45-5 9 G3b Moderately to s everely 30-44 G4 Severl y decreased 15-29 G5 Kidney failure <15Reported eGF R is based on the CKD-EPI 2020 equation that d oes not use a race coefficientEsti mated GFR is not as accur ate as Creatinine Jessica phil in predicting glom erular filtration rate . Estimated GFR is not appl icable for dialysis patien ts Hr Director ID - [id number] 21:58:05 Test Item Value Reference Range Interpretation Comments PARTIAL THROMBOPLASTIN TIME 87.8 seconds 22.5-36.0 H (BEAKER) (test code = 760) POCT-GLUCOSE [id number] 21:33:05 Test Item Value Reference Range Interpretation Comments POC-GLUCOSE METER 140 mg/dL 70-110 H : [facility] (test code = [facility], 153) 62557: Hr Director/Techni maikol ID = [id number] for FI TE FOREST POCT-GLUCOSE [id number] 17:23:03 Test Item Value Reference Range Interpretation Comments POC-GLUCOSE METER 121 mg/dL 70-110 H : TESTED A T [facility] 6720 (BEAKER) (test code = [facility], 153) 29057: Hr Director/Techni maikol ID = [id number] for MICKI BAGLEY BASIC METABOLIC [id number] 15:42:26 Test Item Value Reference Range Interpretation Comments SODIUM (BEAKER) 134 meq/L 136-145 L (test code = 381) POTASSIUM 4.5 meq/L 3.5-5.1 (BEAKER) (test code = 379) CHLORIDE (BEAKER) 100 meq/L 98-107 (test code = 382) CO2 (BEAKER) 26 meq/L 22-29 (test code = 355) BLOOD UREA 24 mg/dL 7-21 H NITROGEN (BEAKER) (test code = 354) CREATININE 1.45 mg/dL 0.57-1.25 H (BEAKER) (test code = 358) GLUCOSE RANDOM 136 mg/dL 70-105 H (BEAKER) (test code = 652) CALCIUM (BEAKER) 9.6 mg/dL 8.4-10.2 (test code = 697) EGFR (BEAKER) 51 Interpretatio n of eGFR (test code = mL/min/1.73 values Stage De scription 1092) sq m Result G1 Effie l or high >=90 G2 Mildly decreased 60-89 G3a Mildl y to moderately 45-5 9 G3b Moderately to s everely 30-44 G4 Severl y decreased 15-29 G5 Kidney failure <15Reported eGF R is based on the CKD-EPI 2020 equation that d oes not use a race coefficientEsti mated GFR is not as accur ate as Creatinine Jessica villarreal in predicting glom erular filtration rate . Estimated GFR is not appl icable for dialysis patien ts Hr Director ID - [id number] 15:01:06 Test Item Value Reference Range Interpretation Comments PARTIAL THROMBOPLASTIN TIME 34.4 seconds 22.5-36.0 (BEAKER) (test code = 760) [id number] 13:42:30 Test Item Value Reference Range Interpretation Comments PARTIAL THROMBOPLASTIN TIME > seconds 22.5-36.0 HH (BEAKER) (test code = 760) POCT-GLUCOSE [id number] 12:12:37 Test Item Value Reference Range Interpretation Comments POC-GLUCOSE METER 158 mg/dL 70-110 H : TESTED A T [facility] (BEAKER) (test code = [facility] [place], 1538) 78893: Hr Director/Techni maikol ID = [id number] for AUGUSTOMICKI GUZMAN POCT-GLUCOSE [id number] 08:10:28 Test Item Value Reference Range Interpretation Comments POC-GLUCOSE METER 117 mg/dL 70-110 H : TESTED A T [facility] 6720 ([facility]) (test code = [facility], 153) 97332: Hr Director/Techni maikol ID = [id number] for MICKI BALGEY [id number] 04:55:48 Test Item Value Reference Range Interpretation Comments PARTIAL THROMBOPLASTIN TIME 61.9 seconds 22.5-36.0 H ([facility]) (test code = 760) POCT-GLUCOSE [id number] 21:10:34 Test Item Value Reference Range Interpretation Comments POC-GLUCOSE METER 132 mg/dL 70-110 H : TESTED A T [facility] 6720 ([facility]) (test code = [facility], 153) 75090: Hr Director/Techni maikol ID = [id number] for FOREST BERMAN [id number] 17:36:22 Test Item Value Reference Range Interpretation Comments PARTIAL THROMBOPLASTIN TIME 66.6 seconds 22.5-36.0 H ([facility]) (test code = 760) POCT-GLUCOSE [id number] 17:21:11 Test Item Value Reference Range Interpretation Comments POC-GLUCOSE METER 178 mg/dL 70-110 H : TESTED A T [facility] 6720 ([facility]) (test code = [facility], [facility]) 38702: Hr Director/Techni maikol ID = [id number] for MICKI BAGLEY Carotid doppler [id number] 13:47:49Ejection FractionSLEH ECHO HEARTLAB MKCKESSON [facility] Center[facility] M[facility] Leg[facility] [id number] 13:47:29Ejection FractionSLEH ECHO HEARTLAB MKCKESSON [facility] [id number] 12:43:32 Test Item Value Reference Range Interpretation Comments POC-GLUCOSE METER 184 mg/dL 70-110 H : TESTED A T [facility] 6720 ([facility]) (test code = [facility], 153) 34055: Hr Director/Techni maikol ID = [id number] for MICKI BAGLEY T SPOT [id number] 10:16:57 Test Item Value Reference Range Interpretation Comments T-SPOT TB (BEAKER) (test See scanned report. code = 1683) NEG CONTROL SPOT COUNT See s canned report. (BEAKER) (test code = 1684) PANEL A SPOT (BEAKER) (test See scanned report. code = 1685) PANEL B SPOT (BEAKER) (test See scanned report. code = 1686) POS CONTROL SPOT CT See scan sara report. (BEAKER) (test code = 1687) SCAN RESULT (test code = 5991609) [id number] 09:50:54 Test Item Value Reference Range Interpretation Comments PARTIAL THROMBOPLASTIN TIME 67.3 seconds 22.5-36.0 H (BEAKER) (test code = 760) POCT-GLUCOSE [id number] 07:33:54 Test Item Value Reference Range Interpretation Comments POC-GLUCOSE METER 135 mg/dL 70-110 H : TESTED A T [facility] (BEAKER) (test code = [facility] [place], 1538) 20189: Hr Director/Techni maikol ID = [id number] for MICKI BAGLEY [id number] 02:51:47 Test Item Value Reference Range Interpretation Comments PARTIAL THROMBOPLASTIN TIME 56.8 seconds 22.5-36.0 H (BEAKER) (test code = 760) COMPREHENSIVE METABOLIC [id number] 02:33:27 Test Item Value Reference Range Interpretation Comments TOTAL PROTEIN 6.5 gm/dL 6.0-8.3 (BEAKER) (test code = 770) ALBUMIN (BEAKER) 2.9 g/dL 3.5-5.0 L (test code = 1145) ALKALINE 57 U/L 40-150 PHOSPHATASE (BEAKER) (test code = 346) BILIRUBIN TOTAL 0.7 mg/dL 0.2-1.2 (BEAKER) (test code = 377) SODIUM (BEAKER) 137 meq/L 136-145 (test code = 381) POTASSIUM (BEAKER) 4.0 meq/L 3.5-5.1 (test code = 379) CHLORIDE (BEAKER) 103 meq/L 98-107 (test code = 382) CO2 (BEAKER) (test 25 meq/L code = 355) BLOOD UREA 20 mg/dL 7-21 NITROGEN (BEAKER) (test code = 354) CREATININE 1.28 mg/dL 0.57-1.25 H (BEAKER) (test code = 358) GLUCOSE RANDOM 124 mg/dL 70-105 H (BEAKER) (test code = 652) CALCIUM (BEAKER) 8.8 mg/dL 8.4-10.2 (test code = 697) AST (SGOT) 33 U/L 5-34 (BEAKER) (test code = 353) ALT (SGPT) 42 U/L 6-55 (BEAKER) (test code = 347) EGFR (BEAKER) 60 Interpretatio n of eGFR (test code = 1092) mL/min/1.[address] age Description sq m Result G1 Effie l or high >=90 G2 Mildly decreased 60-89 G3a Mildl y to moderately 45-5 9 G3b Moderately to s everely 30-44 G4 Sever ly decreased 15-29 G5 Kidney failure <15Repo rted eGFR is based on the CKD-EPI 2020 equation t hat does not use a race coefficientEsti mated GFR is not as accur ate as Creatinine Jessica phil in predicting glom erular filtration rate . Estimated GFR is not appl icable for dialysis patien ts Hr Director ID - ADMINPOCT-GLUCOSE [id number] 21:20:07 Test Item Value Reference Range Interpretation Comments POC-GLUCOSE METER 202 mg/dL 70-110 H : TESTED A T [facility] 6720 ([facility]) (test code = [facility], 1538) 37110: Hr Director/Techni maikol ID = [id number] for FI TE, FOREST [id number] 16:22:48 Test Item Value Reference Range Interpretation Comments ACTIVATED CLOTTING TIME 149 sec : 74 -137 seconds, (BEAKER) (test code = Baseli ne: TESTED AT 441) [facility] 6720 [facility], 770 30: Hr Director/Techni maikol ID = [id number] for Co Floresita andersen [id number] 14:07:12 Test Item Value Reference Range Interpretation Comments ACTIVATED CLOTTING TIME 191 sec : 74 -137 seconds, (BEAKER) (test code = Baseli ne: TESTED AT 441) [facility] 6720 [facility], 770 30: Hr Director/Techni maikol ID = [id number] for HUSAM HEWITT COMPREHENSIVE METABOLIC [id number] 10:49:46 Test Item Value Reference Range Interpretation Comments TOTAL PROTEIN 6.6 gm/dL 6.0-8.3 (BEAKER) (test code = 770) ALBUMIN (BEAKER) 3.4 g/dL 3.5-5.0 L (test code = 1145) ALKALINE 63 U/L 40-150 PHOSPHATASE (BEAKER) (test code = 346) BILIRUBIN TOTAL 0.5 mg/dL 0.2-1.2 (BEAKER) (test code = 377) SODIUM (BEAKER) 138 meq/L 136-145 (test code = 381) POTASSIUM (BEAKER) 4.0 meq/L 3.5-5.1 (test code = 379) CHLORIDE (BEAKER) 102 meq/L 98-107 (test code = 382) CO2 (BEAKER) (test 28 meq/L 22-29 code = 355) BLOOD UREA 21 mg/dL 7-21 NITROGEN (BEAKER) (test code = 354) CREATININE 1.10 mg/dL 0.57-1.25 (BEAKER) (test code = 358) GLUCOSE RANDOM 138 mg/dL 70-105 H (BEAKER) (test code = 652) CALCIUM (BEAKER) 8.7 mg/dL 8.4-10.2 (test code = 697) AST (SGOT) 39 U/L 5-34 H (BEAKER) (test code = 353) ALT (SGPT) 50 U/L 6-55 (BEAKER) (test code = 347) EGFR (BEAKER) 72 Interpretatio n of eGFR (test code = 1092) mL/min/1.[address] age Description sq m Result G1 Effie l or high >=90 G2 Mildly decreased 60-89 G3a Mildl y to moderately 45-5 9 G3b Moderately to s everely 30-44 G4 Severl y decreased 15-29 G5 Kidney failure <15Reported eGF R is based on the CKD-EPI 2021 equation that d oes not use a race coefficientEsti mated GFR is not as accur ate as Creatinine Jessica phil in predicting glom erular filtration rate . Estimated GFR is not appl icable for dialysis patien ts POCT-GLUCOSE [id number] 07:48:02 Test Item Value Reference Range Interpretation Comments POC-GLUCOSE METER 142 mg/dL 70-110 H : TESTED A T [facility] 6720 (BEAKER) (test code = [facility], 1538) 13011: Hr Director/Techni maikol ID = [id number] for ADI CHACON [id number] 06:15:20 Test Item Value Reference Range Interpretation Comments PARTIAL THROMBOPLASTIN TIME 100.3 seconds 22.5-36.0 H (BEAKER) (test code = 760) [id number] 22:49:40 Test Item Value Reference Range Interpretation Comments PARTIAL THROMBOPLASTIN TIME 96.9 seconds 22.5-36.0 H (BEAKER) (test code = 760) POCT-GLUCOSE [id number] 21:17:49 Test Item Value Reference Range Interpretation Comments POC-GLUCOSE METER 190 mg/dL 70-110 H : TESTED A T [facility] 6720 (BEAKER) (test code = [facility] Gutiérrez [facility], 1538) 11775: Hr Director/Techni maikol ID = [id number] for Br Jose jean baptiste Drug Test, General Toxicology, [id number] 19:18:16 Test Item Value Reference Interpretation Comments Range Acetone([facility]) 6 mg/dL H (test code = 3053) Methanol([facility]) None Detected (test code = 3054) Drug Test,Genrl see note The followin g compounds were Tox,U (test code detected: C affeine = 2612440) Dextrorphan Zaki icylic Acid For a list of c ompounds and limits of detec tion go to:[email or web address]://educa tion.[employer]/fa q/YNE152 ISOPROPANOL (test None Detected code = 7059572) ETHANOL (test None Detected Volatile Isaacs it of code = 8166954) Detection: 5 mg/dL This test was developed a nd its analytical performancechar acteristics have been deter mined by [employer] [facility] [place], [place]. It hasnot been asael ared or approved by the U.S. Food and DrugAdminis tration. This assay has been validated pursuantto the CLIA regulations and is used for clinicalpurpose s. SWEETIE (test code = Performing SWEETIE) Lab [facility] [employer]/[place] [address] [place] [address] Rylee Cazares MD, PhD Lab Abnormal Interpretation (test code = 40770-9) [facility] [id number] 17:13:10 Test Item Value Reference Range Interpretation Comments POC-GLUCOSE METER 178 mg/dL 70-110 H : TESTED A T [facility] 6720 (BEAKER) (test code = [facility]AV[facility] Guti[facility]rez [facility], 1538) 46827: Hr Director/Techni maikol ID = [id number] for ADI CHACON [id number] 16:13:17 Test Item Value Reference Range Interpretation Comments PARTIAL THROMBOPLASTIN TIME 58.1 seconds 22.5-36.0 H (BEAKER) (test code = 760) 2D Echo W/Doppler(CW/PW/Color)2022-08-17 15:00:32Ejection FractionSLE ECHO HEARTLAB MKCKESSON [facility] [id number] 12:05:53 Test Item Value Reference Range Interpretation Comments POC-GLUCOSE METER 174 mg/dL 70-110 H : TESTED A T [facility] 6720 (BEAKER) (test code = [facility], 1538) 15672: Hr Director/Techni maikol ID = [id number] for ADI CHACON [id number] 08:24:49 Test Item Value Reference Range Interpretation Comments PARTIAL THROMBOPLASTIN TIME 69.9 seconds 22.5-36.0 H (BEAKER) (test code = 760) POCT-GLUCOSE [id number] 07:53:31 Test Item Value Reference Range Interpretation Comments POC-GLUCOSE METER 122 mg/dL 70-110 H : TESTED A T [facility] 6720 (BEAKER) (test code = [facility], 1538) 79286: Hr Director/Techni maikol ID = [id number] for ADI CHACON (CELLAVISION MANUAL DIFF)2022-08-17 07:06:56 Test Item Value Reference Range Interpretation Comments NEUTROPHILS - REL 63 % (CELLAVISION)(BEAKER) (test code = 2816) LYMPHOCYTES - REL 19 % (CELLAVISION)(BEAKER) (test code = 2817) MONOCYTES - REL 6 % (CELLAVISION)(BEAKER) (test code = 2818) EOSINOPHILS - REL 9 % (CELLAVISION)(BEAKER) (test code = 2819) MYELOCYTES - REL 2 % 0-0 H (CELLAVISION)(BEAKER) (test code = 2822) BANDS - REL (CELLAVISION)(BEAKER) 1 % 0-10 (test code = 2826) NEUTROPHILS - ABS 8.63 K/ul 1.78-5.38 H (CELLAVISION)(BEAKER) (test code = 2830) LYMPHOCYTES - ABS 2.60 K/ul 1.32-3.57 (CELLAVISION)(BEAKER) (test code = 2831) MONOCYTES - ABS 0.82 K/uL 0.30-0.82 (CELLAVISION)(BEAKER) (test code = 2832) EOSINOPHILS - ABS 1.23 K/uL 0.04-0.54 H (CELLAVISION)(BEAKER) (test code = 2834) MYELOCYTES-ABS 0.27 K/uL 0.00-0.00 H (CELLAVISION)(BEAKER) (test code = 2837) BANDS - ABS (CELLAVISION)(BEAKER) 0.14 K/uL 0.00-0.80 (test code = 2840) TOTAL COUNTED (BEAKER) (test code = 100 1351) RBC MORPHOLOGY (BEAKER) (test code Normal = 762) PLT MORPHOLOGY (BEAKER) (test code Normal = 486) TOXIC GRANULATION (BEAKER) (test Present code = 771) ARTIFACT (CELLAVISION)(BEAKER) Present (test code = 3432) PLATELET CONCENTRATION Adequate (CELLAVISION)(BEAKER) (test code = 3438) Hr Director ID - Tiesha Irvin comments: Slide comments:CBC W/PLT COUNT & AUTO [id number] 07:06:55 Test Item Value Reference Range Interpretation Comments WHITE BLOOD CELL COUNT (BEAKER) 13.7 K/ L 3.5-10.5 H (test code = 775) RED BLOOD CELL COUNT (BEAKER) 3.91 M/ L 4.63-6.08 L (test code = 761) HEMOGLOBIN (BEAKER) (test code = 11.7 GM/DL 13.7-17.5 L 410) HEMATOCRIT (BEAKER) (test code = 35.0 % 40.1-51.0 L 411) MEAN CORPUSCULAR VOLUME (BEAKER) 90 fL 79-92 (test code = 753) MEAN CORPUSCULAR HEMOGLOBIN 29.9 pg 25.7-32.2 (BEAKER) (test code = 751) MEAN CORPUSCULAR HEMOGLOBIN CONC 33.4 GM/DL 32.3-36.5 (BEAKER) (test code = 752) RED CELL DISTRIBUTION WIDTH 13.3 % 11.6-14.4 (BEAKER) (test code = 412) PLATELET COUNT (BEAKER) (test 325 K/CU MM 150-450 code = 756) MEAN PLATELET VOLUME (BEAKER) 11.1 fL 9.4-12.4 (test code = 754) NUCLEATED RED BLOOD CELLS 0 /100 WBC 0-0 (BEAKER) (test code = 413) COMPREHENSIVE METABOLIC [id number] 06:04:37 Test Item Value Reference Range Interpretation Comments TOTAL PROTEIN 6.4 gm/dL 6.0-8.3 (BEAKER) (test code = 770) ALBUMIN (BEAKER) 2.9 g/dL 3.5-5.0 L (test code = 1145) ALKALINE 61 U/L 40-150 PHOSPHATASE (BEAKER) (test code = 346) BILIRUBIN TOTAL 0.8 mg/dL 0.2-1.2 (BEAKER) (test code = 377) SODIUM (BEAKER) 137 meq/L 136-145 (test code = 381) POTASSIUM (BEAKER) 3.8 meq/L 3.5-5.1 (test code = 379) CHLORIDE (BEAKER) 103 meq/L 98-107 (test code = 382) CO2 (BEAKER) (test 24 meq/L 22-29 code = 355) BLOOD UREA 26 mg/dL 7-21 H NITROGEN (BEAKER) (test code = 354) CREATININE 1.28 mg/dL 0.57-1.25 H (BEAKER) (test code = 358) GLUCOSE RANDOM 131 mg/dL 70-105 H (BEAKER) (test code = 652) CALCIUM (BEAKER) 9.0 mg/dL 8.4-10.2 (test code = 697) AST (SGOT) 37 U/L 5-34 H (BEAKER) (test code = 353) ALT (SGPT) 52 U/L 6-55 (BEAKER) (test code = 347) EGFR (BEAKER) 60 Interpretatio n of eGFR (test code = 1092) mL/min/1.[address] age Description sq m Result G1 Effie l or high >=90 G2 Mildly decreased 60-89 G3a Mildl y to moderately 45-5 9 G3b Moderately to s everely 30-44 G4 Sever ly decreased 15-29 G5 Kidney failure <15Repo rted eGFR is based on the CKD-EPI 2020 equation t hat does not use a race coefficientEsti mated GFR is not as accur ate as Creatinine Jessica phil in predicting glom erular filtration rate . Estimated GFR is not appl icable for dialysis patien ts Hr Director ID - GENI [id number] 05:52:05 Test Item Value Reference Range Interpretation Comments PARTIAL THROMBOPLASTIN TIME 110.4 seconds 22.5-36.0 H (BEAKER) (test code = 760) BLOOD [id number] 02:00:26 Test Item Value Reference Range Interpretation Comments CULTURE (BEAKER) (test No growth in 5 days code = 1095) The specimen volume collected for this blood culture was below the optimum (10 mL per bottle or 20 mL total). Use of lower volumes may adversely affect recovery and/or detection times of some organisms.BLOOD [id number] 00:01:31 Test Item Value Reference Range Interpretation Comments CULTURE (BEAKER) (test No growth in 5 days code = 1095) POCT-GLUCOSE [id number] 20:38:56 Test Item Value Reference Range Interpretation Comments POC-GLUCOSE METER 170 mg/dL 70-110 H : TESTED A T [facility] 6720 (BEAKER) (test code = [facility] [employer] [facility], 1538) 43246: Hr Director/Techni maikol ID = [id number] for Br Jose jean baptiste POCT-GLUCOSE [id number] 17:24:15 Test Item Value Reference Range Interpretation Comments POC-GLUCOSE METER 135 mg/dL 70-110 H : TESTED A T [facility] 6720 (BEAKER) (test code = [facility] [employer] [facility], 1538) 63267: Hr Director/Techni maikol ID = [id number] for MICKI BAGLEY POCT-GLUCOSE [id number] 12:37:08 Test Item Value Reference Range Interpretation Comments POC-GLUCOSE METER 181 mg/dL 70-110 H : TESTED A T [facility] 6720 (BEAKER) (test code = [facility], 1538) 80073: Hr Director/Techni maikol ID = [id number] for Co rtez, Pringle [id number] 12:36:40 Test Item Value Reference Range Interpretation Comments PARTIAL THROMBOPLASTIN TIME 76.9 seconds 22.5-36.0 H (BEAKER) (test code = 760) POCT-GLUCOSE [id number] 07:57:49 Test Item Value Reference Range Interpretation Comments POC-GLUCOSE METER 142 mg/dL 70-110 H : TESTED A T [facility] 6720 (BEAKER) (test code = [facility], 1538) 83460: Hr Director/Techni maikol ID = [id number] for Co rtez, Pringle (CELLAVISION MANUAL DIFF)2022-08-16 07:39:23 Test Item Value Reference Range Interpretation Comments NEUTROPHILS - REL 54 % (CELLAVISION)(BEAKER) (test code = 2816) LYMPHOCYTES - REL 22 % (CELLAVISION)(BEAKER) (test code = 2817) MONOCYTES - REL 5 % (CELLAVISION)(BEAKER) (test code = 2818) EOSINOPHILS - REL 11 % (CELLAVISION)(BEAKER) (test code = 2819) METAMYELOCYTES - REL 2 % 0-0 H (CELLAVISION)(BEAKER) (test code = 2821) MYELOCYTES - REL 4 % 0-0 H (CELLAVISION)(BEAKER) (test code = 2822) BANDS - REL (CELLAVISION)(BEAKER) 2 % 0-10 (test code = 2826) NEUTROPHILS - ABS 7.67 K/ul 1.78-5.38 H (CELLAVISION)(BEAKER) (test code = 2830) LYMPHOCYTES - ABS 3.12 K/ul 1.32-3.57 (CELLAVISION)(BEAKER) (test code = 2831) MONOCYTES - ABS 0.71 K/uL 0.30-0.82 (CELLAVISION)(BEAKER) (test code = 2832) EOSINOPHILS - ABS 1.56 K/uL 0.04-0.54 H (CELLAVISION)(BEAKER) (test code = 2834) METAMYELOCYTES - ABS 0.28 K/uL 0.00-0.00 H (CELLAVISION)(BEAKER) (test code = 2836) MYELOCYTES-ABS 0.57 K/uL 0.00-0.00 H (CELLAVISION)(BEAKER) (test code = 2837) BANDS - ABS (CELLAVISION)(BEAKER) 0.28 K/uL 0.00-0.80 (test code = 2840) TOTAL COUNTED (BEAKER) (test code = 100 1351) RBC MORPHOLOGY (BEAKER) (test code Normal = 762) WBC MORPHOLOGY (BEAKER) (test code Normal = 487) PLT MORPHOLOGY (BEAKER) (test code Normal = 486) ARTIFACT (CELLAVISION)(BEAKER) Present (test code = 3432) PLATELET CONCENTRATION Adequate (CELLAVISION)(BEAKER) (test code = 3438) Hr Director ID - Makenzie OverholtUser comments: Slide comments:CBC W/PLT COUNT & AUTO [id number] 07:39:22 Test Item Value Reference Range Interpretation Comments WHITE BLOOD CELL COUNT (BEAKER) 14.2 K/ L 3.5-10.5 H (test code = 775) RED BLOOD CELL COUNT (BEAKER) 3.83 M/ L 4.63-6.08 L (test code = 761) HEMOGLOBIN (BEAKER) (test code = 11.4 GM/DL 13.7-17.5 L 410) HEMATOCRIT (BEAKER) (test code = 33.7 % 40.1-51.0 L 411) MEAN CORPUSCULAR VOLUME (BEAKER) 88 fL 79-92 (test code = 753) MEAN CORPUSCULAR HEMOGLOBIN 29.8 pg 25.7-32.2 (BEAKER) (test code = 751) MEAN CORPUSCULAR HEMOGLOBIN CONC 33.8 GM/DL 32.3-36.5 (BEAKER) (test code = 752) RED CELL DISTRIBUTION WIDTH 13.1 % 11.6-14.4 (BEAKER) (test code = 412) PLATELET COUNT (BEAKER) (test 290 K/CU MM 150-450 code = 756) MEAN PLATELET VOLUME (BEAKER) 11.1 fL 9.4-12.4 (test code = 754) NUCLEATED RED BLOOD CELLS 0 /100 WBC 0-0 (BEAKER) (test code = 413) HEPATIC FUNCTION [id number] 05:15:06 Test Item Value Reference Range Interpretation Comments TOTAL PROTEIN (BEAKER) (test code = 6.1 gm/dL 6.0-8.3 770) ALBUMIN (BEAKER) (test code = 1145) 2.8 g/dL 3.5-5.0 L BILIRUBIN TOTAL (BEAKER) (test code 0.7 mg/dL 0.2-1.2 = 377) BILIRUBIN DIRECT (BEAKER) (test 0.3 mg/dL 0.1-0.5 code = 706) ALKALINE PHOSPHATASE (BEAKER) (test 60 U/L 40-150 code = 346) AST (SGOT) (BEAKER) (test code = 38 U/L 5-34 H 353) ALT (SGPT) (BEAKER) (test code = 55 U/L 6-55 347) Hr Director ID - GENI GBASIC METABOLIC [id number] 05:15:05 Test Item Value Reference Range Interpretation Comments SODIUM (BEAKER) 137 meq/L 136-145 (test code = 381) POTASSIUM 3.5 meq/L 3.5-5.1 (BEAKER) (test code = 379) CHLORIDE (BEAKER) 102 meq/L 98-107 (test code = 382) CO2 (BEAKER) 23 meq/L 22-29 (test code = 355) BLOOD UREA 34 mg/dL 7-21 H NITROGEN (BEAKER) (test code = 354) CREATININE 1.26 mg/dL 0.57-1.25 H (BEAKER) (test code = 358) GLUCOSE RANDOM 144 mg/dL 70-105 H (BEAKER) (test code = 652) CALCIUM (BEAKER) 8.9 mg/dL 8.4-10.2 (test code = 697) EGFR (BEAKER) 61 Interpretatio n of eGFR (test code = mL/min/1.73 values Stage De scription 1092) sq m Result G1 Effie l or high >=90 G2 Mildly decreased 60-89 G3a Mildl y to moderately 45-5 9 G3b Moderately to s everely 30-44 G4 Severl y decreased 15-29 G5 Kidney failure <15Reported eGF R is based on the CKD-EPI 2020 equation that d oes not use a race coefficientEsti mated GFR is not as accur ate as Creatinine Jessica phil in predicting glom erular filtration rate . Estimated GFR is not appl icable for dialysis patien ts Hr Director ID - GENI [id number] 05:15:05 Test Item Value Reference Range Interpretation Comments MAGNESIUM (BEAKER) (test code = 2.0 mg/dL 1.6-2.6 627) Hr Director ID - GENI [id number] 05:15:05 Test Item Value Reference Range Interpretation Comments PHOSPHORUS (BEAKER) (test code = 3.3 mg/dL 2.3-4.7 604) Hr Director ID - GENI [id number] 05:03:19 Test Item Value Reference Range Interpretation Comments PARTIAL THROMBOPLASTIN TIME 83.9 seconds 22.5-36.0 H (BEAKER) (test code = 760) CALCIUM, [id number] 04:44:18 Test Item Value Reference Range Interpretation Comments CALCIUM IONIZED (BEAKER) (test 1.05 mmol/L 1.12-1.27 L code = 698) PH, BLOOD (BEAKER) (test code = 7.49 1810) [id number] 21:39:14 Test Item Value Reference Range Interpretation Comments PARTIAL THROMBOPLASTIN TIME 46.8 seconds 22.5-36.0 H (BEAKER) (test code = 760) POCT-GLUCOSE [id number] 21:31:46 Test Item Value Reference Range Interpretation Comments POC-GLUCOSE METER 161 mg/dL 70-110 H : TESTED A T [facility] 6720 (BEAKER) (test code = [facility] [place], 1538) 327[address]: Hr Director/Techni maikol ID = [id number] for Br Jose jean baptiste [id number] 19:48:49 Test Item Value Reference Range Interpretation Comments PARTIAL THROMBOPLASTIN TIME 120.5 seconds 22.5-36.0 H (BEAKER) (test code = 760) POCT-GLUCOSE [id number] 17:35:39 Test Item Value Reference Range Interpretation Comments POC-GLUCOSE METER 128 mg/dL 70-110 H : TESTED A T [facility] 6720 (BEAKER) (test code = [facility] [place], 1538) [address]: Hr Director/Techni maikol ID = [id number] for Co rtez, Jeannie BASIC METABOLIC [id number] 13:54:06 Test Item Value Reference Range Interpretation Comments SODIUM (BEAKER) 134 meq/L 136-145 L (test code = 381) POTASSIUM 3.5 meq/L 3.5-5.1 (BEAKER) (test code = 379) CHLORIDE (BEAKER) 99 meq/L 98-107 (test code = 382) CO2 (BEAKER) 24 meq/L 22-29 (test code = 355) BLOOD UREA 37 mg/dL 7-21 H NITROGEN (BEAKER) (test code = 354) CREATININE 1.24 mg/dL 0.57-1.25 (BEAKER) (test code = 358) GLUCOSE RANDOM 197 mg/dL 70-105 H (BEAKER) (test code = 652) CALCIUM (BEAKER) 8.7 mg/dL 8.4-10.2 (test code = 697) EGFR (BEAKER) 62 Interpretatio n of eGFR (test code = mL/min/1.73 values Stage De scription 1092) sq m Result G1 Effie l or high >=90 G2 Mildly decreased 60-89 G3a Mildl y to moderately 45-5 9 G3b Moderately to s everely 30-44 G4 Severl y decreased 15-29 G5 Kidney failure <15Reported eGF R is based on the CKD-EPI 2021 equation that d oes not use a race coefficientEsti mated GFR is not as accur ate as Creatinine Jessica villarreal in predicting glom erular filtration rate . Estimated GFR is not appl icable for dialysis patien ts Hr Director ID - [id number] 13:51:02 Test Item Value Reference Range Interpretation Comments PARTIAL THROMBOPLASTIN TIME 84.8 seconds 22.5-36.0 H (BEAKER) (test code = 760) BLOOD GAS, [id number] 13:33:19 Test Item Value Reference Range Interpretation Comments PH VENOUS (BEAKER) (test code = 7.49 7.32-7.42 H 701) PCO2 VENOUS (BEAKER) (test code = 36 mm Hg 41-51 L 755) PO2 VENOUS (BEAKER) (test code = 88 mm Hg 25-40 H 702) O2 SATURATION VENOUS (BEAKER) 97.3 % 40.0-70.0 H (test code = 703) HCO3 VENOUS (BEAKER) (test code = 27 mmol/L 21-29 705) BASE EXCESS VENOUS (BEAKER) (test 3.3 mmol/L -2.0-3.0 H code = 704) PATIENT TEMPERATURE (BEAKER) (test 37.0 code = 1818) FIO2 (BEAKER) (test code = 1819) 21.0 POCT-GLUCOSE [id number] 12:19:39 Test Item Value Reference Range Interpretation Comments POC-GLUCOSE METER 229 mg/dL 70-110 H : TESTED A T [facility] 6720 (BEAKER) (test code = [facility] [place], 1538) 604[address]: Hr Director/Techni maikol ID = [id number] for Co rtez, Pringle RAD, CHEST, 1 VIEW, NON [id number] 08:02:00Reason for exam:->pnaShould this be performed at the bedside?->Yes [facility] 1950 Sex: MFINAL REPORT EXAMINATION: RAD, CHEST, 1 VIEW, NON DEPT. INDICATION: 71-year-old male with pneumonia. COMPARISON: Chest radiograph dated 08/14/2022. FINDINGS/ IMPRESSION:Borderline cardiomegaly. Interval improvement of right basilar opacity with persistent mild bilateral interstitial markings. No large pleural effusion or pneumothorax. Other findings remain unchanged. Signed: Frandy Vogel MDReport Verified Date/Time: 08/15/2022 08:02:00 POCT-GLUCOSE METER 2022-08-15 07:59:24 Test Item Value Reference Range Interpretation Comments POC-GLUCOSE METER 183 mg/dL 70-110 H : TESTED A T [facility] 6720 (BEAKER) (test code = [facility], 1538) 27466: Hr Director/Techni maikol ID = [id number] for Co rtezHarshadPringle [id number] 05:30:58 Test Item Value Reference Range Interpretation Comments MAGNESIUM (BEAKER) (test code = 2.1 mg/dL 1.6-2.6 627) Hr Director ID - MMHEPATIC FUNCTION [id number] 05:30:58 Test Item Value Reference Range Interpretation Comments TOTAL PROTEIN (BEAKER) (test code = 6.1 gm/dL 6.0-8.3 770) ALBUMIN (BEAKER) (test code = 1145) 2.9 g/dL 3.5-5.0 L BILIRUBIN TOTAL (BEAKER) (test code 0.9 mg/dL 0.2-1.2 = 377) BILIRUBIN DIRECT (BEAKER) (test 0.4 mg/dL 0.1-0.5 code = 706) ALKALINE PHOSPHATASE (BEAKER) (test 65 U/L 40-150 code = 346) AST (SGOT) (BEAKER) (test code = 47 U/L 5-34 H 353) ALT (SGPT) (BEAKER) (test code = 71 U/L 6-55 H 347) Hr Director ID - MMBASIC METABOLIC [id number] 05:30:57 Test Item Value Reference Range Interpretation Comments SODIUM (BEAKER) 133 meq/L 136-145 L (test code = 381) POTASSIUM 3.2 meq/L 3.5-5.1 L (BEAKER) (test code = 379) CHLORIDE (BEAKER) 99 meq/L 98-107 (test code = 382) CO2 (BEAKER) 11 meq/L 22-29 L (test code = 355) BLOOD UREA 41 mg/dL 7-21 H NITROGEN (BEAKER) (test code = 354) CREATININE 1.32 mg/dL 0.57-1.25 H (BEAKER) (test code = 358) GLUCOSE RANDOM 187 mg/dL 70-105 H (BEAKER) (test code = 652) CALCIUM (BEAKER) 8.6 mg/dL 8.4-10.2 (test code = 697) EGFR (BEAKER) 58 Interpretatio n of eGFR (test code = mL/min/1.73 values Stage De scription 1092) sq m Result G1 Effie l or high >=90 G2 Mildly decreased 60-89 G3a Mildl y to moderately 45-5 9 G3b Moderately to s everely 30-44 G4 Severl y decreased 15-29 G5 Kidney failure <15Reported eGF R is based on the CKD-EPI 2020 equation that d oes not use a race coefficientEsti mated GFR is not as accur ate as Creatinine Jessica phil in predicting glom erular filtration rate . Estimated GFR is not appl icable for dialysis patien ts Hr Director ID - MMB-TYPE NATRIURETIC FACTOR (BNP)2022-08-15 05:02:44 Test Item Value Reference Range Interpretation Comments B-TYPE NATRIURETIC PEPTIDE (AKER) 674 pg/mL 0-100 H (test code = 700) Hr Director ID - MMLACTIC ACID, [id number] 04:49:56 Test Item Value Reference Range Interpretation Comments LACTATE BLOOD VENOUS 2.32 mmol/L 0.50-2.20 H Specime n slightly (2) ([facility]) (test hemolyzed code = 1092) Hr Director ID - [id number] 04:45:17 Test Item Value Reference Range Interpretation Comments PARTIAL THROMBOPLASTIN TIME 63.2 seconds 22.5-36.0 H (AKER) (test code = 760) POCT-GLUCOSE [id number] 20:53:17 Test Item Value Reference Range Interpretation Comments POC-GLUCOSE METER 169 mg/dL 70-110 H : TESTED A T [facility] 6720 ([facility]) (test code = [facility] [place], 1538) [address]: Hr Director/Techni maikol ID = [id number] for Br Jose jean baptiste [id number] 20:31:39 Test Item Value Reference Range Interpretation Comments PARTIAL THROMBOPLASTIN TIME 68.0 seconds 22.5-36.0 H (BEAKER) (test code = 760) POCT-GLUCOSE [id number] 17:26:55 Test Item Value Reference Range Interpretation Comments POC-GLUCOSE METER 205 mg/dL 70-110 H : TESTED A T [facility] 6720 (BEAKER) (test code = [facility], 1538) 57668: Hr Director/Techni maikol ID = [id number] for MICKI BAGLEY [id number] 15:08:47 Test Item Value Reference Range Interpretation Comments PARTIAL THROMBOPLASTIN TIME 76.8 seconds 22.5-36.0 H (BEAKER) (test code = 760) MRSA [id number] 14:13:20 Test Item Value Reference Range Interpretation Comments Result (test code = 6463-4) No [id number] 14:13:20 Test Item Value Reference Range Interpretation Comments CULTURE (BEAKER) (test code No MRSA isolated = 1095) POCT-GLUCOSE [id number] 12:38:43 Test Item Value Reference Range Interpretation Comments POC-GLUCOSE METER 193 mg/dL 70-110 H : TESTED A T [facility] 6720 (BEAKER) (test code = [facility], 1538) 740[address]: Hr Director/Techni maikol ID = [id number] for MICKI BAGLEY Sputum Culture + Gram [id number] 11:12:16 Test Item Value Reference Range Interpretation Comments Result (test code = 3+ Normal respiratory 6463-4) sherlyn present Gram Stain Result 1+ gram positive cocci in (test code = 1123) chains and [facility]AM [id number] 11:12:16 Test Item Value Reference Range Interpretation Comments CULTURE (BEAKER) 3+ Normal respiratory (test code = 1095) sherlyn present GRAM STAIN RESULT 1+ WBCs (BEAKER) (test code = 1123) GRAM STAIN RESULT 0-5 epithelial cells (BEAKER) (test code = 80365) GRAM STAIN RESULT 1+ gram positive cocci (BEAKER) (test code = in chains and pairs 68488) POCT-GLUCOSE [id number] 08:07:19 Test Item Value Reference Range Interpretation Comments POC-GLUCOSE METER 171 mg/dL 70-110 H : TESTED A T [facility] 6720 (BEAKER) (test code = [facility], 1538) 015[address]: Hr Director/Techni maikol ID = [id number] for MICKI BAGLEY POCT-GLUCOSE [id number] 07:19:21 Test Item Value Reference Range Interpretation Comments POC-GLUCOSE METER 213 mg/dL 70-110 H : TESTED A T [facility] 6720 (BEAKER) (test code = [facility], 1538) 74236: Hr Director/Techni maikol ID = [id number] for GAEL ALVA RAD, CHEST, 1 VIEW, NON [id number] 07:19:00Reason for exam:->pnaShould this be performed at the bedside?->Yes [facility] 1950 Sex: MFINAL REPORT INDICATION: pna COMPARISON: 08/12/2022 TECHNIQUE: Single frontal view of the chest. FINDINGS: Lines, tubes, and devices: None.Lungs and pleura: Airspace opacities in the right lower lung. No pneumothorax.Heart and mediastinum: Normal heart size. Unremarkable mediastinal contours.Osseous structures: No acute abnormality. Mild spondylosis and facet arthropathy are present within the spine. Other: None. IMPRESSION: Right lower lung airspace opacities, representing pneumonia or atelectasis, similar to prior exam. Signed: Collette Chesterort Verified Date/Time: 08/14/2022 07:19:19 Reading Location: [address] Reading Room [id number] 06:50:50 Test Item Value Reference Range Interpretation Comments PARTIAL THROMBOPLASTIN TIME 85.7 seconds 22.5-36.0 H (BEAKER) (test code = 760) BASIC METABOLIC [id number] 06:43:55 Test Item Value Reference Range Interpretation Comments SODIUM (BEAKER) 134 meq/L 136-145 L (test code = 381) POTASSIUM 2.6 meq/L 3.5-5.1 LL (BEAKER) (test code = 379) CHLORIDE (BEAKER) 97 meq/L 98-107 L (test code = 382) CO2 (BEAKER) 24 meq/L 22-29 (test code = 355) BLOOD UREA 41 mg/dL 7-21 H NITROGEN (BEAKER) (test code = 354) CREATININE 1.55 mg/dL 0.57-1.25 H (BEAKER) (test code = 358) GLUCOSE RANDOM 165 mg/dL 70-105 H (BEAKER) (test code = 652) CALCIUM (BEAKER) 8.2 mg/dL 8.4-10.2 L (test code = 697) EGFR (BEAKER) 48 Interpretatio n of eGFR (test code = mL/min/1.73 values Stage De scription 1092) sq m Result G1 Effie l or high >=90 G2 Mildly decreased 60-89 G3a Mildl y to moderately 45-5 9 G3b Moderately to s everely 30-44 G4 Severl y decreased 15-29 G5 Kidney failure <15Reported eGF R is based on the CKD-EPI 1 equation that d oes not use a race coefficientEsti mated GFR is not as accur ate as Creatinine Jessica villarreal in predicting glom erular filtration rate . Estimated GFR is not appl icable for dialysis patien ts Hr Director ID - ADMINHEPATIC FUNCTION [id number] 06:36:29 Test Item Value Reference Range Interpretation Comments TOTAL PROTEIN (BEAKER) (test code = 6.5 gm/dL 6.0-8.3 770) ALBUMIN (BEAKER) (test code = 1145) 3.0 g/dL 3.5-5.0 L BILIRUBIN TOTAL (BEAKER) (test code 1.5 mg/dL 0.2-1.2 H = 377) BILIRUBIN DIRECT (BEAKER) (test 0.6 mg/dL 0.1-0.5 H code = 706) ALKALINE PHOSPHATASE (BEAKER) (test 70 U/L 40-150 code = 346) AST (SGOT) (BEAKER) (test code = 56 U/L 5-34 H 353) ALT (SGPT) (BEAKER) (test code = 81 U/L 6-55 H 347) Hr Director ID - ADMINCBC (HEMOGRAM ONLY)2022-08-14 06:15:19 Test Item Value Reference Range Interpretation Comments WHITE BLOOD CELL COUNT (BEAKER) 19.1 K/ L 3.5-10.5 H (test code = 775) RED BLOOD CELL COUNT (BEAKER) 3.96 M/ L 4.63-6.08 L (test code = 761) HEMOGLOBIN (BEAKER) (test code = 12.0 GM/DL 13.7-17.5 L 410) HEMATOCRIT (BEAKER) (test code = 35.0 % 40.1-51.0 L 411) MEAN CORPUSCULAR VOLUME (BEAKER) 88 fL 79-92 (test code = 753) MEAN CORPUSCULAR HEMOGLOBIN 30.3 pg 25.7-32.2 (BEAKER) (test code = 751) MEAN CORPUSCULAR HEMOGLOBIN CONC 34.3 GM/DL 32.3-36.5 (BEAKER) (test code = 752) RED CELL DISTRIBUTION WIDTH 12.8 % 11.6-14.4 (BEAKER) (test code = 412) PLATELET COUNT (BEAKER) (test 251 K/CU MM 150-450 code = 756) MEAN PLATELET VOLUME (BEAKER) 10.9 fL 9.4-12.4 (test code = 754) NUCLEATED RED BLOOD CELLS 0 /100 WBC 0-0 (BEAKER) (test code = 413) [id number] 00:24:06 Test Item Value Reference Range Interpretation Comments PARTIAL THROMBOPLASTIN TIME 59.4 seconds 22.5-36.0 H (BEAKER) (test code = 760) VANCOMYCIN LEVEL, [id number] 00:19:07 Test Item Value Reference Range Interpretation Comments VANCOMYCIN TROUGH (BEAKER) (test 10.5 ug/mL 10.0-20.0 code = 522) Hr Director ID - [id number] 17:30:37 Test Item Value Reference Range Interpretation Comments PARTIAL THROMBOPLASTIN TIME 47.0 seconds 22.5-36.0 H (BEAKER) (test code = 760) U/S, PELVIC, [id number] 17:17:00Reason for exam:->jose guadalupe [facility] 1950 Sex: MFINAL REPORT TECHNIQUE: Grayscale ultrasound of the abdomen. INDICATION: transaminitis. Acute kidney injury COMPARISON: None. FINDINGS: MIDLINE VASCULATURE: The visualized inferior vena cava is unremarkable. The maximum visualized aortic diameter is 2.8 cm. LIVER: The liver is increased in echogenicity with sparing around the gallbladder. Smooth liver contour. No focal lesions. Themain portal vein is patent and measures 0.8 cm in diameter. BILIARY:Gallbladder: No gallstones or sludge. No gallbladder wall thickening, pericholecystic fluid, or distention. Negative sonographic Dan sign.Common bile duct measures 0.2 cm, within normal limits. No intrahepatic biliary ductal dilatation. PANCREAS: Not visualized due to overlying bowel gas. SPLEEN: No splenomegaly. The spleen measures 8.4 cm in length. PERITONEUM: No free fluid. KIDNEYS: The kidneys are normal in size. The right kidney measures 12.1 by 6 by 4.3 cm with a cortical thickness of 1.2 cm, and the left kidney measures 10.8 x 5.5 x 4.2 cm with a cortical thickness of 1.2 cm. No hydronephrosis. There is a questionable rounded area in the right upper pole which measures 2.8 cm. BLADDER: The prevoid urinary bladder volumeis 271 mL. The postvoid bladder volume is 91 mL. IMPRESSION: 1.Diffuse fatty infiltration of the liver 2.The kidneys have a normal ultrasound appearance. No hydronephrosis. 3.The postvoid bladder volume is elevated at 91 mL. 4.A questionable rounded area in the right upper pole measures 2.8 cm. This could be artifactual, but further evaluation with either a CT or MR of the abdomen with and without intravenous contrast is recommended to exclude a solid renal neoplasm. Signed: Kenisha Monteiro MDReport Verif ied Date/Time: 08/13/2022 17:17:09 U/S, ABDOMINAL, [id number] 17:17:00Abdomen limited area? Add comment if clarification is needed.->Liver Reason for exam:->transaminitis [facility] 1950 Sex: MFINAL REPORT TECHNIQUE: Grayscale ultrasound of the abdomen. INDICATION: transaminitis. Acute kidney injury COMPARISON: None. FINDINGS: MIDLINE VASCULATURE: The visualized inferior vena cava is unremarkable. The maximum visualized aortic diameter is 2.8 cm. LIVER: The liver is increased in echogenicity with sparing around the gallbladder. Smooth liver contour. No focal lesions. The main portal vein is patent and measures 0.8 cm in diameter. BILIARY:Gallbladder: No gallstones or sludge. No gallbladder wall thickening, pericholecystic fluid, or distention. Negative sonographic Dan sign.Common bile duct measures 0.2 cm, within normal limits. No intrahepatic biliary ductal dilatation. PANCREAS: Not visualized due to overlying bowel gas. SPLEEN: No splenomegaly. The spleen measures 8.4 cm in length. PERITONEUM: No free fluid. KIDNEYS: The kidneys are normal in size. The right kidney measures 12.1 by 6 by 4.3 cm with a cortical thickness of 1.2 cm, and the left kidney measures 10.8 x 5.5 x 4.2 cm with a cortical thickness of 1.2 cm. No hydronephrosis. There is a questionable rounded area in the right upper pole which measures 2.8 cm. BLADDER: The prevoid urinary bladder volume is 271 mL. The postvoid bladder volume is 91 mL. IMPRESSION: 1.Diffuse fatty infiltration of the liver 2.The kidneys have a normal ultrasound appearance. No hydronephrosis. 3.The postvoid bladder volumeis elevated at 91 mL. 4.A questionable rounded area in the right upper pole measures 2.8 cm. This could be artifactual, but further evaluation with either a CT or MR of the abdomen with and without intravenous contrast is recommended to exclude a solid renal neoplasm. Signed: Kenisha Monteiro [facility] [place] Verified Date/Time: 08/13/2022 17:17:09 POCT-GLUCOSE [id number] 11:19:08 Test Item Value Reference Range Interpretation Comments POC-GLUCOSE METER 210 mg/dL 70-110 H : TESTED A [place] [id number] ([facility]) (test code = BHAVNA Guti[facility]rez [facility], 1538) [address]: Hr Director/Techni maikol ID = [id number] for SHAISTA VIDALYolanda TIMOTHY [id number] 09:54:29 Test Item Value Reference Range Interpretation Comments PARTIAL THROMBOPLASTIN TIME 57.7 seconds 22.5-36.0 H ([facility]) (test code = 760) Transthoracic 2D echo w/ doppler (cw/pw/color)2022-08-13 08:44:16Ejection FractionSLEH ECHO HEARTLAB [facility] [id number] 08:18:50 Test Item Value Reference Range Interpretation Comments POC-GLUCOSE METER 249 mg/dL 70-110 H : TESTED A T [facility] 6720 (BEAKER) (test code = BHAVNA Gutiérrez [facility], 1538) [address]: Hr Director/Techni maikol ID = [id number] for TIMOTHY LUNDBERG [id number] 04:08:19 Test Item Value Reference Range Interpretation Comments MAGNESIUM (BEAKER) (test code = 2.1 mg/dL 1.6-2.6 627) Hr Director ID - ADMINHEPATIC FUNCTION [id number] 04:08:19 Test Item Value Reference Range Interpretation Comments TOTAL PROTEIN (BEAKER) (test code = 6.6 gm/dL 6.0-8.3 770) ALBUMIN (BEAKER) (test code = 1145) 3.1 g/dL 3.5-5.0 L BILIRUBIN TOTAL (BEAKER) (test code 1.8 mg/dL 0.2-1.2 H = 377) BILIRUBIN DIRECT (BEAKER) (test 0.8 mg/dL 0.1-0.5 H code = 706) ALKALINE PHOSPHATASE (BEAKER) (test 74 U/L 40-150 code = 346) AST (SGOT) (BEAKER) (test code = 110 U/L 5-34 H 353) ALT (SGPT) (BEAKER) (test code = 105 U/L 6-55 H 347) Hr Director ID - ADMINBASIC METABOLIC [id number] 04:08:18 Test Item Value Reference Range Interpretation Comments SODIUM (BEAKER) 136 meq/L 136-145 (test code = 381) POTASSIUM 3.0 meq/L 3.5-5.1 L (BEAKER) (test code = 379) CHLORIDE (BEAKER) 101 meq/L 98-107 (test code = 382) CO2 (BEAKER) 21 meq/L 22-29 L (test code = 355) BLOOD UREA 41 mg/dL 7-21 H NITROGEN (BEAKER) (test code = 354) CREATININE 1.72 mg/dL 0.57-1.25 H (BEAKER) (test code = 358) GLUCOSE RANDOM 186 mg/dL 70-105 H (BEAKER) (test code = 652) CALCIUM (BEAKER) 8.2 mg/dL 8.4-10.2 L (test code = 697) EGFR (BEAKER) 42 Interpretatio n of eGFR (test code = mL/min/1.73 values Stage De scription 1092) sq m Result G1 Effie l or high >=90 G2 Mildly decreased 60-89 G3a Mild ly to moderately 45-5 9 G3b Moderately to s everely 30-44 G4 Severl y decreased 15-29 G5 Kidney failure <15Reported eGF R is based on the CKD-EPI 2020 equation that d oes not use a race coefficientEsti mated GFR is not as accur ate as Creatinine Jessica phil in predicting glom erular filtration rate . Estimated GFR is not appl icable for dialysis patien ts Hr Director ID - [id number] 04:01:15 Test Item Value Reference Range Interpretation Comments PARTIAL THROMBOPLASTIN TIME 65.2 seconds 22.5-36.0 H (BEAKER) (test code = 760) CBC (HEMOGRAM ONLY)2022-08-13 03:49:10 Test Item Value Reference Range Interpretation Comments WHITE BLOOD CELL COUNT (BEAKER) 24.3 K/ L 3.5-10.5 H (test code = 775) RED BLOOD CELL COUNT (BEAKER) 3.79 M/ L 4.63-6.08 L (test code = 761) HEMOGLOBIN (BEAKER) (test code = 11.5 GM/DL 13.7-17.5 L 410) HEMATOCRIT (BEAKER) (test code = 34.1 % 40.1-51.0 L 411) MEAN CORPUSCULAR VOLUME (BEAKER) 90 fL 79-92 (test code = 753) MEAN CORPUSCULAR HEMOGLOBIN 30.3 pg 25.7-32.2 (BEAKER) (test code = 751) MEAN CORPUSCULAR HEMOGLOBIN CONC 33.7 GM/DL 32.3-36.5 (BEAKER) (test code = 752) RED CELL DISTRIBUTION WIDTH 13.1 % 11.6-14.4 (BEAKER) (test code = 412) PLATELET COUNT (BEAKER) (test 214 K/CU MM 150-450 code = 756) MEAN PLATELET VOLUME (BEAKER) 11.1 fL 9.4-12.4 (test code = 754) NUCLEATED RED BLOOD CELLS 0 /100 WBC 0-0 (BEAKER) (test code = 413) POCT-GLUCOSE [id number] 22:10:11 Test Item Value Reference Range Interpretation Comments POC-GLUCOSE METER 177 mg/dL 70-110 H : TESTED A T [facility] 6720 (BEAKER) (test code = BHAVNA Gutiérrez [facility], 1538) [address]: Hr Director/Techni maikol ID = [id number] for DENTON SPARKS [id number] 21:35:43 Test Item Value Reference Range Interpretation Comments PARTIAL THROMBOPLASTIN TIME 38.3 seconds 22.5-36.0 H (BEAKER) (test code = 760) BASIC METABOLIC [id number] 19:01:24 Test Item Value Reference Range Interpretation Comments SODIUM (BEAKER) 135 meq/L 136-145 L (test code = 381) POTASSIUM 3.8 meq/L 3.5-5.1 Specimen slight ly (BEAKER) (test hemolyzed code = 379) CHLORIDE (BEAKER) 102 meq/L 98-107 (test code = 382) CO2 (BEAKER) 19 meq/L 22-29 L (test code = 355) BLOOD UREA 41 mg/dL 7-21 H NITROGEN (BEAKER) (test code = 354) CREATININE 2.01 mg/dL 0.57-1.25 H Specimen slight ly (BEAKER) (test hemolyzed code = 358) GLUCOSE RANDOM 286 mg/dL 70-105 H (BEAKER) (test code = 652) CALCIUM (BEAKER) 8.6 mg/dL 8.4-10.2 (test code = 697) EGFR (BEAKER) 35 Interpretatio n of eGFR (test code = mL/min/1.73 values Stage De scription 1092) sq m Result G1 Effie l or high >=90 G2 Mildly decreased 60-89 G3a Mildl y to moderately 45-5 9 G3b Moderately to s everely 30-44 G4 Severl y decreased 15-29 G5 Kidney failure <15Reported eGF R is based on the CKD-EPI 1 equation that d oes not use a race coefficientEsti mated GFR is not as accur ate as Creatinine Jessica villarreal in predicting glom erular filtration rate . Estimated GFR is not appl icable for dialysis patien ts Hr Director ID - BSPOCT-GLUCOSE [id number] 18:01:46 Test Item Value Reference Range Interpretation Comments POC-GLUCOSE METER 300 mg/dL 70-110 H : TESTED A T [facility] 6720 (BEAKER) (test code = BHAVNA Gutiérrez [facility], 1538) [address]: Hr Director/Techni maikol ID = [id number] for Yee Pantoja HIGH SENSITIVITY TROPONIN [id number] 17:14:28 Test Item Value Reference Range Interpretation Comments HIGH SENSITIVITY TROPONIN I (test 64085 pg/ml <=35 HH code = 1329855) Hr Director ID - ADMINThe WOOD GRINDER STAT High Sensitivity Troponin-I results should be used in conjunction with other diagnostic information such as ECG, clinical observations and information, and patientsymptoms to aid in the diagnosis of CT.Hr Director ID - [id number] 14:33:25 Test Item Value Reference Range Interpretation Comments PARTIAL THROMBOPLASTIN TIME 58.6 seconds 22.5-36.0 H (NEO) (test code = 760) POCT-GLUCOSE [id number] 11:32:29 Test Item Value Reference Range Interpretation Comments POC-GLUCOSE METER 194 mg/dL 70-110 H : [facility] (test code = BHAVNA Gutiérrez [facility], 1538) [address]: Hr Director/Techni maikol ID = [id number] for Yee Pantoja RAD, CHEST, 1 VIEW, NON [id number] 10:55:00Reason for exam:->CHF/Pulm edemaTEM[facility]UL[facility] : 1950 Sex: MFINAL REPORT INDICATION: CHF/Pulm edema COMPARISON: None TECHNIQUE: Single frontalview of the chest. FINDINGS: Lines, tubes, and devices: None.Lungs and pleura: Right lower lung airspace opacities. No pneumothorax.Heart and mediastinum: Normal heart size. Unremarkable mediastinal contours.Osseous structures: No acute abnormality. Mild spondylosis and facet arthropathy are present within the spine.Other: None. IMPRESSION: Right lower lung airspace opacities, which may represent pneumonia or atelectasis. Signed: Collette Chester MDReport Verified Date/Time: 08/12/2022 10:55:02 ReadingLocation: OQMT 25th [facility] Reading Room Electronically signed by: COLLETTE CHESTER MD on 0 08/12/2022 10:55 AMHEMOGLOBIN [id number] 10:17:54 Test Item Value Reference Range Interpretation Comments HEMOGLOBIN A1C 7.0 % See_Comment H [Automated m essage] ELECTROPHORESIS ([facility]) The system which (test code = 3811) generated this result transmitted ref erence range: <=5.6%. The reference range was not used to int erpret this result as normal/abnormal . "The A1c is measured using a NGSP-certified method. HbA1c value equal to or greater than 6.5% as thediagnosis cutoff for diabetes. An HbA1c value of 5.7- 6.4% indicates increased risk for diabetes (prediabetes)."Hr Director ID - ADMPOCT- GLUCOSE [id number] 08:14:38 Test Item Value Reference Range Interpretation Comments POC-GLUCOSE METER 249 mg/dL 70-110 H : [facility] (test code = BHAVNA Gutiérrez [facility], 1538) [address]: Hr Director/Techni maikol ID = [id number] for Yee Pantoja HIGH SENSITIVITY TROPONIN [id number] 06:02:40 Test Item Value Reference Range Interpretation Comments HIGH SENSITIVITY TROPONIN I (test > pg/ml <=35 code = 3798085) Hr Director ID - ADMINThe WOOD GRINDER STAT High Sensitivity Troponin-I results should be used in conjunction with other diagnostic information such as ECG, clinical observations and information, and patientsymptoms to aid in the diagnosis of CT.Hr Director ID - ADMINBASIC METABOLIC [id number] 05:00:15 Test Item Value Reference Range Interpretation Comments SODIUM (BEAKER) 136 meq/L 136-145 (test code = 381) POTASSIUM 3.8 meq/L 3.5-5.1 Specimen slight ly (BEAKER) (test hemolyzed code = 379) CHLORIDE (BEAKER) 104 meq/L 98-107 (test code = 382) CO2 (BEAKER) 16 meq/L 22-29 L (test code = 355) BLOOD UREA 40 mg/dL 7-21 H NITROGEN (BEAKER) (test code = 354) CREATININE 2.07 mg/dL 0.57-1.25 H Specimen slight ly (BEAKER) (test hemolyzed code = 358) GLUCOSE RANDOM 155 mg/dL 70-105 H (BEAKER) (test code = 652) CALCIUM (BEAKER) 8.2 mg/dL 8.4-10.2 L (test code = 697) EGFR (BEAKER) 34 Interpretatio n of eGFR (test code = mL/min/1.73 values Stage De scription 1092) sq m Result G1 Effie l or high >=90 G2 Mildly decreased 60-89 G3a Mildl y to moderately 45-5 9 G3b Moderately to s everely 30-44 G4 Severl y decreased 15-29 G5 Kidney failure <15Reported eGF R is based on the CKD-EPI 2020 equation that d oes not use a race coefficientEsti mated GFR is not as accur ate as Creatinine Jessica phil in predicting glom erular filtration rate . Estimated GFR is not appl icable for dialysis patien ts Hr Director ID - ADMINHEPATIC FUNCTION [id number] 05:00:15 Test Item Value Reference Range Interpretation Comments TOTAL PROTEIN (BEAKER) 6.7 gm/dL 6.0-8.3 Speci men slightly (test code = 770) hemolyzed ALBUMIN (BEAKER) (test 3.0 g/dL 3.5-5.0 L Speci men slightly code = 1145) hemolyzed BILIRUBIN TOTAL 1.7 mg/dL 0.2-1.2 H Specimen sli ghtly (BEAKER) (test code = hemoly zed 377) BILIRUBIN DIRECT 0.6 mg/dL 0.1-0.5 H Specimen sl ightly (BEAKER) (test code = hemoly zed 706) ALKALINE PHOSPHATASE 71 U/L 40-150 (BEAKER) (test code = 346) AST (SGOT) (BEAKER) 235 U/L 5-34 H Specimen slightly (test code = 353) hemolyzed ALT (SGPT) (BEAKER) 112 U/L 6-55 H Specimen slightly (test code = 347) hemolyzed Hr Director ID - [id number] 05:00:14 Test Item Value Reference Range Interpretation Comments MAGNESIUM (BEAKER) 2.2 mg/dL 1.6-2.6 Specimen slightly (test code = 627) hemolyzed Hr Director ID - [id number] 04:54:01 Test Item Value Reference Range Interpretation Comments PARTIAL THROMBOPLASTIN TIME 46.6 seconds 22.5-36.0 H (BEAKER) (test code = 760) CBC (HEMOGRAM ONLY)2022-08-12 04:40:16 Test Item Value Reference Range Interpretation Comments WHITE BLOOD CELL COUNT (BEAKER) 27.1 K/ L 3.5-10.5 H (test code = 775) RED BLOOD CELL COUNT (BEAKER) 3.83 M/ L 4.63-6.08 L (test code = 761) HEMOGLOBIN (BEAKER) (test code = 11.5 GM/DL 13.7-17.5 L 410) HEMATOCRIT (BEAKER) (test code = 34.3 % 40.1-51.0 L 411) MEAN CORPUSCULAR VOLUME (BEAKER) 90 fL 79-92 (test code = 753) MEAN CORPUSCULAR HEMOGLOBIN 30.0 pg 25.7-32.2 (BEAKER) (test code = 751) MEAN CORPUSCULAR HEMOGLOBIN CONC 33.5 GM/DL 32.3-36.5 (BEAKER) (test code = 752) RED CELL DISTRIBUTION WIDTH 13.1 % 11.6-14.4 (BEAKER) (test code = 412) PLATELET COUNT (BEAKER) (test 203 K/CU MM 150-450 code = 756) MEAN PLATELET VOLUME (BEAKER) 11.5 fL 9.4-12.4 (test code = 754) NUCLEATED RED BLOOD CELLS 0 /100 WBC 0-0 (BEAKER) (test code = 413) Strep pneumoniae [id number] 01:08:51 Test Item Value Reference Range Interpretation Comments Strep pneumoniae Presumptive negative Presumptive Antigen (test code = [place] [address]-3) pneumonia - see pneumococcal comment pneumonia - see comment, Presumptive negative for pneumococcal meningitis - see comment SWEETIE (test code = SWEETIE) Presumptive negative for pneumococcal pneumonia, suggesting no current or recent pneumococcal infection. Infection due to S. pneumoniae cannot be ruled out since the antigen present in the sample may be below the detection limit of the test. Lab Interpretation Normal (test code = 99986-6) [facility] [id number] 01:08:51 Test Item Value Reference Range Interpretation Comments STREP PNEUMONIAE Presumptive negative Presumptive negative ANTIGEN (AKER) for pneumococcal for pneumococcal (test code = 1615) pneumonia - see pneumonia - see comment commen Presumptive negative for pneumococcal pneumonia, suggesting no current or recent pneumococcal infection. Infection due to S. pneumoniae cannot be ruled out since the antigen present in the sample may be below the detection limit of the test. Legionella antigen, [id number] 01:07:14 Test Item Value Reference Range Interpretation Comments Legionella Urine Negative - see Negative Negative for L. Antigen (test code = comment pneumop gilson 31638-1) serogroup 1 antigen, sugges ting no recent or current infecti on with this serogroup. Legionellosis cannot be ruled out since other serogroups and species may cau se disease. Lab Interpretation Normal (test code = 38591-4) [facility] [id number] 01:07:14 Test Item Value Reference Range Interpretation Comments L. PNEUMOPHILA Negative - see Negative Negative fo r L. SEROGP 1 UR AG comment pneumophila (NEO) (test code serogrou p 1 antigen, = 1156) suggesting no r ecent or current infe ction with this serog roup. Legionellosis c annot be ruled out si nce other serogroup s and species may cau se disease. HIGH SENSITIVITY TROPONIN [id number] 00:35:38 Test Item Value Reference Range Interpretation Comments HIGH SENSITIVITY TROPONIN I (test > pg/ml <=35 code = 9707851) Hr Director ID - ADMINThe WOOD GRINDER STAT High Sensitivity Troponin-I results should be used in conjunction with other diagnostic information such as ECG, clinical observations and information, and patientsymptoms to aid in the diagnosis of CT.Hr Director ID - ADMINLACTIC ACID, [id number] 23:56:19 Test Item Value Reference Range Interpretation Comments LACTATE BLOOD VENOUS 2.05 mmol/L 0.50-2.20 Specime n slightly (2) (NEO) (test hemolyzed code = 2872) Hr Director ID - [id number] 23:36:18 Test Item Value Reference Range Interpretation Comments PARTIAL THROMBOPLASTIN TIME 37.7 seconds 22.5-36.0 H (BEAKER) (test code = 760) HEPATITIS PANEL, [id number] 23:34:58 Test Item Value Reference Range Interpretation Comments HEPATITIS A IGM ANTIBODY (BEAKER) Nonreactive Nonreactive (test code = 498) HEPATITIS B CORE IGM ANTIBODY Nonreactive Nonreactive (BEAKER) (test code = 645) HEPATITIS C ANTIBODY (BEAKER) Nonreactive Nonreactive (test code = 367) HEPATITIS B SURFACE ANTIGEN (2) Nonreactive Nonreactive (BEAKER) (test code = 2585) Hr Director ID - ADMINBLOOD GAS, [id number] 23:24:10 Test Item Value Reference Range Interpretation Comments PH VENOUS (BEAKER) (test code = 7.39 7.32-7.42 701) PCO2 VENOUS (BEAKER) (test code = 33 mm Hg 41-51 L 755) PO2 VENOUS (BEAKER) (test code = 56 mm Hg 25-40 H 702) O2 SATURATION VENOUS (BEAKER) 88.0 % 40.0-70.0 H (test code = 703) HCO3 VENOUS (BEAKER) (test code = 19 mmol/L 21-29 L 705) BASE EXCESS VENOUS (BEAKER) (test -4.5 mmol/L -2.0-3.0 L code = 704) PATIENT TEMPERATURE (BEAKER) 37.7 (test code = 1818) FIO2 (BEAKER) (test code = 1819) 32.0 LIPID [id number] 23:12:56 Test Item Value Reference Range Interpretation Comments TRIGLYCERIDES (BEAKER) (test code = 108 mg/dL 540) CHOLESTEROL (BEAKER) (test code = 142 mg/dL 631) HDL CHOLESTEROL (BEAKER) (test code 29 mg/dL = 976) LDL CHOLESTEROL CALCULATED (BEAKER) 91 mg/dL (test code = 633) Triglyceride Reference Range: Low Risk <150 Borderline 150-199 High Risk 200- 499 Very High Risk >=500Cholesterol Reference Range: Low Risk <200 Borderline 200-239 High Risk >240HDL Cholesterol Reference Range: Low Risk >=60 High Risk <40LDL Cholesterol Reference Range: Optimal <100 Near Optimal 100-129 Borderline 130-159 High 160-189 Very High >=190 Hr Director ID - [id number] 23:12:56 Test Item Value Reference Range Interpretation Comments MAGNESIUM (BEAKER) (test code = 2.5 mg/dL 1.6-2.6 627) Hr Director ID - ADMINCT, BRAIN, WITHOUT [id number] 22:07:00Reason for Exam (Free Text) - Addiitonal information for Radiologist->evaluate for hemorrhage seen on [facility] 1950 Sex: MFINAL REPORT CLINICAL HISTORY: Unlisted Reason for Exam COMPARISON: None Multiple axial images of the brain were performed without IV contrast. This exam was performed according to our departmental dose-optimization program, which includes automated exposure control, adjustment of the mA and/or kV according to patient size and/or use of the iterative reconstruction technique. Intracranial hemorrhage: None. Brain parenchyma: No CT evidence of acute ischemia. Scattered subcortical and periventricular non-specific white matter hypodensities suggestive of microangiopathy. Ventricles, sulci and basal cisterns: Normal for age. Extra-axial spaces: Normal. Midline shift: None. Visualizedvasculature: Atherosclerotic calcifications. Cranium: No significant findings. Skullbase: No significant findings. Paranasal sinuses: No significant findings. IMPRESSION: No definite acute intracranialabnormality. There is no mass lesion, intracranial hemorrhage or CT evidence of acute stroke. Pleasenote that CT is insensitive in the detection of acute ischemia. Signed: Angélica Palomino MDReport Verified Date/Time: 08/11/2022 22:07:19 [id number] 22:04:33 Test Item Value Reference Range Interpretation Comments PROCALCITONIN (BEBRYN) (test 120.17 ng/mL <0.05 HH code = 3036) SEPSIS RISK (ng/mL)Low: 0.05-0.50Intermediate: 0.51-2.00High: >=2.01TSH/FREE T4 IF [id number] 21:59:30 Test Item Value Reference Range Interpretation Comments THYROID STIMULATING HORMONE 1.090 uIU/mL 0.350-4.940 (ANYAAKER) (test code = 772) Hr Director ID - ADMINCT, CHEST, WITHOUT [id number] 21:59:00Unlisted Reason for Exam - Click Yes and Enter Reason Below->No [facility] : 1950 Sex: MFINAL REPORT EXAM: CT Chest WITHOUT intravenous contrast 08/11/2022 9:37 PMINDICATION: Respiratory failureCOMPARISON: NoneTECHNIQUE:Chest was scanned utilizing a multidetector helical scanner from the lung apex through the level of the adrenal glands without administration of IV contrast. Coronal and sagittal reformations were obtained. Routine protocol was performed. IV CONTRAST: NoneRADIATION DOSE: Total DLP: 1570 mGy*cm. Dose modulation, iterative reconstruction, and/or weight based adjustment of the mA/kV was utilized to reduce the radiation dose to as low as reasonably achievable. COMPLICATIONS: None FINDINGS: LINES/ TUBES: None. LUNGS AND AIRWAYS: Patchy bilateral groundglass and consolidative opacities are seen within the right upper lobe, right middle lobe and left lower lobe. The right lower lobe however displays near-complete airspace consolidation. Biapical smooth interlobular septal thickening. The central airways are patent. The right lower lobe airways are opacified. PLEURA: The pleural spaces are clear. HEART AND MEDIASTINUM: The thyroid gland is normal. No pathologic mediastinal, hilar or axillary lymphadenopathy. The heart is normal in size. There is no pericardial effusion. Coronary artery and aortic atherosclerosis. UPPER ABDOMEN: Limited non-contrast views of the upper abdomen show no abnormality. BONES: There are degenerative changes in the thoracic spine. SOFT TISSUES: Unremarkable. IMPRESSION: 1.Patchy bilateral groundglass and consolidative opacities are seen within the right upper lobe, right middle lobe and left lower lobe. Right lower lobe however displays near-complete airspace consolidation with right lower lobe airway opacification. These findings are concerning for multifocal inflammatory versus infectious process, favoring multifocal aspiration pneumonia. 2.Biapical smooth interlobular septal thickening, component of interstitial edema. Signed: Morales Pérez [facility] [place] Verified Date/Time: 08/11/2022 21:59:12 HEPATIC FUNCTION PANEL 2022-08-11 21:40:05 Test Item Value Reference Range Interpretation Comments TOTAL PROTEIN (BEAKER) (test code = 6.9 gm/dL 6.0-8.3 770) ALBUMIN (BEAKER) (test code = 1145) 3.3 g/dL 3.5-5.0 L BILIRUBIN TOTAL (BEAKER) (test code 1.9 mg/dL 0.2-1.2 H = 377) BILIRUBIN DIRECT (BEAKER) (test 1.0 mg/dL 0.1-0.5 H code = 706) ALKALINE PHOSPHATASE (BEAKER) (test 62 U/L 40-150 code = 346) AST (SGOT) (BEAKER) (test code = 307 U/L 5-34 H 353) ALT (SGPT) (BEAKER) (test code = 122 U/L 6-55 H 347) Hr Director ID - ADMINLACTIC ACID, [id number] 21:32:22 Test Item Value Reference Range Interpretation Comments LACTATE BLOOD VENOUS 2.26 mmol/L 0.50-2.20 H Specime n slightly (2) (BEAKER) (test hemolyzed code = 2872) Hr Director ID - [id number] 21:26:29 Test Item Value Reference Range Interpretation Comments PARTIAL THROMBOPLASTIN TIME 41.5 seconds 22.5-36.0 H (BEAKER) (test code = 760) HIGH SENSITIVITY TROPONIN [id number] 20:50:31 Test Item Value Reference Range Interpretation Comments HIGH SENSITIVITY TROPONIN I (test > pg/ml <=35 code = 7538942) Hr Director ID - DBThe WOOD GRINDER STAT High Sensitivity Troponin-I results should be used in conjunctionwith other diagnostic information such as ECG, clinical observations and information, and patient symptoms to aid in the diagnosis of CT.Hr Director ID - DB(CELLAVISION MANUAL DIFF)2022-08-11 20:38:47 Test Item Value Reference Range Interpretation Comments NEUTROPHILS - REL 95 % (CELLAVISION)(BEAKER) (test code = 2816) LYMPHOCYTES - REL 1 % (CELLAVISION)(BEAKER) (test code = 2817) MONOCYTES - REL 4 % (CELLAVISION)(BEAKER) (test code = 2818) NEUTROPHILS - ABS 28.50 K/ul 1.78-5.38 H (CELLAVISION)(BEAKER) (test code = 2830) LYMPHOCYTES - ABS 0.30 K/ul 1.32-3.57 L (CELLAVISION)(BEAKER) (test code = 2831) MONOCYTES - ABS 1.20 K/uL 0.30-0.82 H (CELLAVISION)(BEAKER) (test code = 2832) TOTAL COUNTED (BEAKER) (test code 100 = 1351) WBC MORPHOLOGY (BEAKER) (test code Normal = 487) PLT MORPHOLOGY (BEAKER) (test code Normal = 486) POIKILOCYTES (BEAKER) (test code = 1+ few 966) JEFF CELLS (BEAKER) (test code = 1+ few 474) ARTIFACT (CELLAVISION)(BEAKER) Present (test code = 3432) PLATELET CONCENTRATION Adequate (CELLAVISION)(BEAKER) (test code = 3438) Hr Director ID - Luci Mckinney comments: Slide comments:CBC W/PLT COUNT & AUTO [id number] 20:38:46 Test Item Value Reference Range Interpretation Comments WHITE BLOOD CELL COUNT (BEAKER) 30.0 K/ L 3.5-10.5 H (test code = 775) RED BLOOD CELL COUNT (BEAKER) 4.07 M/ L 4.63-6.08 L (test code = 761) HEMOGLOBIN (BEAKER) (test code = 12.5 GM/DL 13.7-17.5 L 410) HEMATOCRIT (BEAKER) (test code = 35.7 % 40.1-51.0 L 411) MEAN CORPUSCULAR VOLUME (BEAKER) 88 fL 79-92 (test code = 753) MEAN CORPUSCULAR HEMOGLOBIN 30.7 pg 25.7-32.2 (BEAKER) (test code = 751) MEAN CORPUSCULAR HEMOGLOBIN CONC 35.0 GM/DL 32.3-36.5 (BEAKER) (test code = 752) RED CELL DISTRIBUTION WIDTH 13.0 % 11.6-14.4 (BEAKER) (test code = 412) PLATELET COUNT (BEAKER) (test 192 K/CU MM 150-450 code = 756) MEAN PLATELET VOLUME (BEAKER) 11.1 fL 9.4-12.4 (test code = 754) NUCLEATED RED BLOOD CELLS 0 /100 WBC 0-0 (BEAKER) (test code = 413) B-TYPE NATRIURETIC FACTOR (BNP)2022-08-11 20:26:32 Test Item Value Reference Range Interpretation Comments B-TYPE NATRIURETIC PEPTIDE (BEAKER) 835 pg/mL 0-100 H (test code = 700) Hr Director ID - DBBASIC METABOLIC [id number] 20:19:11 Test Item Value Reference Range Interpretation Comments SODIUM (BEAKER) 136 meq/L 136-145 (test code = 381) POTASSIUM 3.7 meq/L 3.5-5.1 (BEAKER) (test code = 379) CHLORIDE (BEAKER) 103 meq/L 98-107 (test code = 382) CO2 (BEAKER) 18 meq/L 22-29 L (test code = 355) BLOOD UREA 35 mg/dL 7-21 H NITROGEN (BEAKER) (test code = 354) CREATININE 2.20 mg/dL 0.57-1.25 H (BEAKER) (test code = 358) GLUCOSE RANDOM 174 mg/dL 70-105 H (NEO) (test code = 652) CALCIUM (NEO) 8.7 mg/dL 8.4-10.2 (test code = 697) EGFR (NEO) 31 Interpretatio n of eGFR (test code = mL/min/1.73 values Stage De scription 1092) sq m Result G1 Effie l or high >=90 G2 Mildly decreased 60-89 G3a Mildl y to moderately 45-5 9 G3b Moderately to s everely 30-44 G4 Severl y decreased 15-29 G5 Kidney failure <15Reported eGF R is based on the CKD-EPI 2020 equation that d oes not use a race coefficientEsti mated GFR is not as accur ate as Creatinine Jessica phil in predicting glom erular filtration rate . Estimated GFR is not appl icable for dialysis patien kelvin Hr Director ID - DB Notes Date/Time Note Provider Source 2022-08-24 15:32:46-00:00 BRADY JUAREZ [facility]PER[facility]/PROCEDURE REPORT OCTAVIO HUIZAR FACILITY: [facility] #: [id number] Room: [place] [address] MR #: [id number] : 1950 DATE OF PROCEDURE: 08/24/2022 SURGEON: Brady Juarez MD PREOPERATIVE DIAGNOSES: Severe coronary artery d isease, severe aortic stenosis, trileaflet valve, atrial fibril lation and [id number] congestive heart failure. POSTOPERATIVE DIAGNOSES: Severe coronary artery disease, severe aortic stenosis, trileaflet valve, atrial fibrillation and rhekp-[id number]-[id number] congestive heart failure. PROCEDURES PERFORMED: Aortic valve replacement w ith a 25 mm Magna Ease bioprosthetic valve, coronary artery bypass grafting x2 with reverse saphenous vein graft to the left anterior descending artery and reverse saphenous vein gra ft to the ramus intermedius artery, endoscopic saphenous vein canales rvest left leg, left-sided left atrial Maze procedure for atrial fibrillation with box lesion set and left atrial appendage li gation with an AtriClip external. SYSTEM DEVELOPMENT ENGINEER: Vern Kumari MD. ANESTHETIC: General endotracheal. HISTORY: The patient presented with complex mult i problem heart disease. He understood the risks of stroke , bleeding, and and his family did and he agreed to pr oceed. FINDINGS: The patient had a trileaflet, heavily calcified valve. The coronaries were somewhat diseased at the ramus intermedius and the LAD was diseased too but was good. There was good flow in the mammary. Vein was a good co nduit. We used the AtriCure box lesion radiofrequency abla tion clamp. PROCEDURE IN DETAIL: The patient's chest was kit ped and prepped. Incision was made in the left lower thi gh. We identified the side branches up to the groin, re moved it, prepared on the back table and closed with a kit in and absorbable suture. We then did the median sterno hattie, took the mammary down on the left, cannulated the aortic arch, put in a two-stage venous cannula antegrade and retrograd e, went on pump, decompressed the heart, crossclamped and a rrested with cold antegrade and retrograde which we used inte rmittently throughout the procedure with topical cooling. W e then got circumferential control through the transverse s inus and then below the superior vena cava above the pulmonary artery and then we opened up the area below the inferior ve na cava and then used a rubber catheter from AtriCure, then positioned it onto the clamp. These clamped pieces for the sin gle box lesion set clamp and encircled the pulmonary veins and then did three sets of two ablation with a clamp for good exclu adelso of the left atrium. We then elevated the heart and then got the AtriClip and sized to a 40 mm clip and put it on the appendage and secured in place. We then elevated the heart , identified the ramus intermedius, it was quite high. We ope sara it longitudinally and anastomosed the saphenous vei n with end-to-side with 7-0 Prolene. We looped the vein around to the right side of the ascending aorta and did the pr oximal end-to-side with 5-0 Prolene suture. We then chelsie ntified the mid LAD, opened it longitudinally and anastomose d the mammary to it end-to-side with 7-0 Prolene and tacked it down with 5-0. We then opened up the aorta with an oblique inc ision into the noncoronary sinus. The findings were as noted ab ove. We completely excised away and debrided the aortic valve and down onto the mitral anterior leaflet flushed to jeremy ve any particulate matter, took 2-0 Ethibond sutures fr om aorta to ventricle brought into the sewing ring of a 25 m m Magna Ease bioprosthetic valve and tied in place and secure d in well so we are going to close up the aorta with a double la remy of running 4-0 Prolene suture, meticulously de-aired the he art, removed with cross-clamp, cardioverted. Placed ventricul ar pacing wires and chest tubes and weaned the patient fro m pump on moderate inotropic support. The cannulas were re moved and the site secured and the chest closed with wire and absorbable suture. I directly participated in all michel porti ons including cannulation and the entire period of cardiopulmo nary bypass and was otherwise immediately available for the enti re operation. Total cardiopulmonary bypass time 128 minutes. T otal crossclamp time 96 minutes. Of note, we gave Anc ef and vancomycin for antibiotics, which we will discon tinue within 48 hours. We did not use any specific DVT prophylax is since this was not indicated for cardiac surgical procedure s. ADILSON/MODL /[id number] Electronically signed by: BRADY JUAREZ at 13:05:59.000
--- NOTE | 2022-11-01 15:41 | RAD REPORT ---
EXAM DESCRIPTION: RAD - Elbow Right 3 View - 11/01/2022 3:23 pm CLINICAL HISTORY: Right elbow pain FINDINGS: No fracture or dislocation is seen. No bone or joint abnormality noted
--- NOTE | 2022-11-01 16:48 | RAD REPORT ---
EXAM DESCRIPTION: US - UPPER EXTREMITY VENOUS UNILATE - 11/01/2022 4:06 pm CLINICAL HISTORY: Right upper extremity swelling COMPARISON: None. FINDINGS: The right internal jugular, subclavian, brachial, axillary, cephalic, basilic, radial and ulnar veins demonstrate phasic signal. The veins are generally compressible. Doppler demonstrates good flow Grayscale, color and spectral analysis performed on all vessels IMPRESSION: No evidence of thrombus involving the right upper extremity
--- NOTE | 2022-11-01 17:02 | EDPHYS ---
Physician Documentation [facility] Name: Smooth Ordaz Age: 72 yrs Sex: Male : 1950 Arrival Date: 11/01/2022 Time: 14:46 Bed 17 Private MD: ED Physician Abdelrahman Webster HPI: 11/01 15:14 This 72 yrs old Male presents to ER via Ambulatory with complaints of Back Pain, ELBOW snw SWELLING. 15:14 The symptoms are located in the right elbow. Associated signs and symptoms: Pertinent snw positives: musculoskeletal pain. The problem was sustained surgery 08/13 - open heart, some abdominal approach "that has not been done before" at [facility] with Dr. Cortes. During hospitalization, pt had extravasation of potassium to right forearm. ecchymosis remains. 15:20 Severity of symptoms: At their worst the symptoms were moderate. The patient has been snw recently seen by a physician: with different complaint(s). pt has been to rehab and is doing well, walks 2 miles/day. Historical: - Allergies: 15:01 No Known Allergies; iw - PMHx: 15:00 Hypertensive disorder; iw - Immunization history:: Client reports having NOT received the Covid vaccine. - Social history:: Smoking status: Patient denies any tobacco usage or history of. ROS: 15:13 Constitutional: Negative for fever, chills, and weight loss, Eyes: Negative for injury, snw pain, redness, and discharge, ENT: Negative for injury, pain, and discharge, Neck: Negative for injury, pain, and swelling, Cardiovascular: Negative for chest pain, palpitations, and edema, Respiratory: Negative for shortness of breath, cough, wheezing, and pleuritic chest pain, Abdomen/GI: Negative for abdominal pain, nausea, vomiting, diarrhea, and constipation, Back: Negative for injury and pain, : Negative for injury, bleeding, discharge, and swelling, Skin: Negative for injury, rash, and discoloration, Neuro: Negative for headache, weakness, numbness, tingling, and seizure, Psych: Negative for depression, anxiety, suicide ideation, homicidal ideation, and hallucinations. 15:13 MS/extremity: Positive for swelling, of the right elbow. Exam: 15:12 Constitutional: This is a well developed, well nourished patient who is awake, alert, snw and in no acute distress. Head/Face: Normocephalic, atraumatic. Eyes: Pupils equal round and reactive to light, extra-ocular motions intact. Lids and lashes normal. Conjunctiva and sclera are non-icteric and not injected. Cornea within normal limits. Periorbital areas with no swelling, redness, or edema. ENT: Nares patent. No nasal discharge, no septal abnormalities noted. Tympanic membranes are normal and external auditory canals are clear. Oropharynx with no redness, swelling, or masses, exudates, or evidence of obstruction, uvula midline. Mucous membranes moist. Neck: Trachea midline, no thyromegaly or masses palpated, and no cervical lymphadenopathy. Supple, full range of motion without nuchal rigidity, or vertebral point tenderness. No Meningismus. Chest/axilla: Normal chest wall appearance and motion. Nontender with no deformity. No lesions are appreciated. Cardiovascular: Regular rate and rhythm with a normal S1 and S2. No gallops, murmurs, or rubs. Normal PMI, no JVD. No pulse deficits. Respiratory: Lungs have equal breath sounds bilaterally, clear to auscultation and percussion. No rales, rhonchi or wheezes noted. No increased work of breathing, no retractions or nasal flaring. Back: No spinal tenderness. No costovertebral tenderness. Full range of motion. Skin: Warm, dry with normal turgor. Normal color with no rashes, no lesions, and no evidence of cellulitis. Neuro: Awake and alert, GCS 15, oriented to person, place, time, and situation. Cranial nerves II-XII grossly intact. Motor strength 5/5 in all extremities. Sensory grossly intact. Cerebellar exam normal. Normal gait. Psych: Awake, alert, with orientation to person, place and time. Behavior, mood, and affect are within normal limits. 15:12 Musculoskeletal/extremity: ROM: full active range of motion, in all extremities, Circulation is intact in all extremities. Sensation intact. Joints: All joints are normal except the right elbow displays swelling, fluctuant edema, no erythema, no increased warmth. 15:12 Neuro: Orientation: is normal. Vital Signs: 15:00 BP 173 / 91; Pulse 93; Resp 16; Temp 98.1; Pulse Ox 100% on R/A; iw 17:15 BP 156 / 94; Pulse 83; Resp 16; Pulse Ox 99% on R/A; nj1 MDM: 14:54 Patient medically screened. snw 16:01 Data reviewed: vital signs, nurses notes, radiologic studies, plain films, ultrasound. snw I considered the following discharge prescriptions or medication management in the emergency department Medications were administered in the Emergency Department. See MAR. Counseling: I had a detailed discussion with the patient and/or guardian regarding: the historical points, exam findings, and any diagnostic results supporting the discharge/admit diagnosis, the presence of at least one elevated blood pressure reading (>120/80) during this emergency department visit, radiology results, the need for outpatient follow up, for definitive care, to return to the emergency department if symptoms worsen or persist or if there are any questions or concerns that arise at home. Special discussion: Based on the history and exam findings, there is no indication for further emergent testing or inpatient evaluation. I discussed with the patient/guardian the need to see the orthopedic surgeon for further evaluation of the symptoms. 11/01 15:10 Order name: Elbow Right 3 View XRAY; Complete Time: 15:43 snw 11/01 15:15 Order name: UPPER EXTREMITY VENOUS UNILATE; Complete Time: 17:02 EDMS Administered Medications: 17:15 Drug: Cephalexin PO 500 mg Route: PO; nj1 17:20 Follow up: Response: No adverse reaction nj1 Disposition: 17:36 Co-signature as Attending Physician, Abdelrahman Webster MD I reviewed the patient's care rn provided by the Advanced Practice Provider and agree with the diagnosis and treatment plan. Disposition Summary: 11/01/22 17:02 Discharge Ordered Location: Home snw Condition: Stable snw Diagnosis - Olecranon bursitis, right elbow snw Followup: snw - With: Emergency Department - When: As needed - Reason: Worsening of condition Followup: snw - With: Private Physician - When: 2 - 3 days - Reason: Recheck today's complaints, Continuance of care, Re-evaluation by your physician Discharge Instructions: - Discharge Summary Sheet snw - Elbow Bursitis snw - Heat Therapy snw Forms: - Medication Reconciliation Form snw - Thank You Letter snw - Antibiotic Education snw - Prescription Opioid Use snw Prescriptions: - Cephalexin 500 mg Oral Capsule - take 1 capsule by ORAL route every 8 hours for 10 days; 30 capsule; Refills: 0, snw Product Selection Permitted Signatures: Dispatcher [employer] EDMS Bambi Ignacio, CASHIER TICKET SELLING-C [employer]ASHIER TICK[employer] SELLING-Csnw Sridevi Vasquez, RN Abdelrahman Reynolds MD MD rn Jaco, Norma, RN RN nj1 Corrections: (The following items were deleted from the chart) 15:13 15:10 Extremity Venous Uni [email or web address] ordered. EDMS EDMS
--- NOTE | 2022-11-01 17:02 | ER ---
Nurse's Notes [facility] Name: Smooth Ordaz Age: 72 yrs Sex: Male : 1950 Arrival Date: 11/01/2022 Time: 14:46 Bed 17 Private MD: Diagnosis: Olecranon bursitis, right elbow Presentation: 11/01 14:57 Chief complaint: Patient states: right low back pain today , denies injury, also has iw right elbow swelling since Wednesday. Coronavirus screen: At this time, the client does not indicate any symptoms associated with coronavirus-19. Ebola Screen: Patient negative for fever greater than or equal to 101.5 degrees Fahrenheit, and additional compatible Ebola Virus Disease symptoms Patient denies exposure to infectious person. Patient denies travel to an Ebola-affected area in the 21 days before illness onset. No symptoms or risks identified at this time. Initial Sepsis Screen: Does the patient meet any 2 criteria? No. Patient's initial sepsis screen is negative. Does the patient have a suspected source of infection? No. Patient's initial sepsis screen is negative. Risk Assessment: Do you want to hurt yourself or someone else?. Onset of symptoms was October 30, 2022. 14:57 Method Of Arrival: Ambulatory iw 14:57 Acuity: ANAYELI 3 iw Triage Assessment: 15:27 General: Appears in no apparent distress. comfortable, Behavior is calm, cooperative, nj1 appropriate for age. Pain: Denies pain. Neuro: Level of Consciousness is awake, alert, obeys commands, Oriented to person, place, time, situation. Cardiovascular: Patient's skin is warm and dry. Respiratory: No deficits noted. Musculoskeletal: Range of motion: intact in all extremities, Swelling present in right elbow. Historical: - Allergies: 15:01 No Known Allergies; iw - PMHx: 15:00 Hypertensive disorder; iw - Immunization history:: Client reports having NOT received the Covid vaccine. - Social history:: Smoking status: Patient denies any tobacco usage or history of. Screenin:16 [facility] ED Fall Risk Assessment (Adult). Abuse screen: Denies threats or abuse. Denies nj1 injuries from another. Nutritional screening: No deficits noted. Tuberculosis screening: No symptoms or risk factors identified. Assessment: 16:30 Reassessment: Patient appears in no apparent distress at this time. Patient and/or nj1 family updated on plan of care and expected duration. Pain level reassessed. Patient is alert, oriented x 3, equal unlabored respirations, skin warm/dry/pink. 17:15 Reassessment: Patient appears in no apparent distress at this time. Patient and/or nj1 family updated on plan of care and expected duration. Pain level reassessed. Patient is alert, oriented x 3, equal unlabored respirations, skin warm/dry/pink. Vital Signs: 15:00 BP 173 / 91; Pulse 93; Resp 16; Temp 98.1; Pulse Ox 100% on R/A; iw 17:15 BP 156 / 94; Pulse 83; Resp 16; Pulse Ox 99% on R/A; nj1 ED Course: 14:51 Patient arrived in ED. ts1 14:54 Bambi Ignacio FNP-C [facility]. snw 14:54 Abdelrahman Webster MD is Attending Physician. snw 14:59 Triage completed. iw 14:59 Arm band placed on. iw 15:02 Effie Ferreira, RN is Primary Nurse. nj1 15:24 Elbow Right 3 View XRAY In Process Unspecified. EDMS 15:28 Patient has correct armband on for positive identification. Bed in low position. Call nj1 light in reach. 16:07 UPPER EXTREMITY VENOUS UNILATE In Process Unspecified. EDMS 17:20 No provider procedures requiring assistance completed. nj1 17:20 Patient did not have IV access during this emergency room visit. nj1 Administered Medications: 17:15 Drug: Cephalexin PO 500 mg Route: PO; nj1 17:20 Follow up: Response: No adverse reaction nj1 Medication: 17:20 VIS not applicable for this client. nj1 Outcome: 17:02 Discharge ordered by . snw 17:20 Discharged to home ambulatory. nj1 17:20 Condition: stable 17:20 Discharge instructions given to patient, Instructed on discharge instructions, follow up and referral plans. medication usage, Demonstrated understanding of instructions, follow-up care, medications, Prescriptions given X 1. 17:24 Patient left the ED. nj1 Signatures: Dispatcher [employer] EDMS Bambi Ignacio FNP-C FARM MARKETER-Csnw Sridevi Vasquez RN RN Effie Ferreira, RN RN nj1 Arechiga, Deedee, PAS PAS ts1
[2022-11-01] MEDS ORDERED: CEPHALEXIN 250 MG CAP ONE (17:17)
[2022-11-01 17:35] VITALS: TEMP 98.1
[2022-11-01 17:37] VITALS: BP 156/94; O2SAT 99
== END 2022-11-01 17:24 | disposition home or self-care (01) ==
LOC: ER 14:46
DX: M70.21 Olecranon bursitis, right elbow (principal); I10 Essential (primary) hypertension
CPT/HCPCS: 93971; 99283

== ENCOUNTER 2022-11-14 09:20 | Emergency (ER) | payer OTHER ==
--- OUTSIDE RECORDS SUMMARY | 2022-11-14 09:32 | XMS REPORT | Continuity of Care Document ---
:1950 Author Organization [facility] t Address [address] [facility]. [address] [place] [address] Care Team Providers Name Role Phone Asked, No Pcp Primary Care Physician Unavailable MORALES PÉREZ Attending Clinician Unavailable DONITA RUDD Attending Clinician Unavailable Alfredo Olson MD Attending Clinician Isha Nunez MD Attending Clinician JOAQUIN ROLLINS Attending Clinician Unavailable JOSEFINA BAEZ Attending Clinician Unavailable JERRELL VILLAFUERTE Attending Clinician Unavailable Brady Juarez MD Attending Clinician Aubrey Moore MD Attending Clinician Basilio Ryan MD Attending Clinician Unavailable Alfredo Olson MD Attending Clinician SHARON CLARK Admitting Clinician Unavailable ISHA NUNEZ Admitting Clinician Unavailable Payers Payer Name Policy Type Policy Number Effective Date Expiration Date S kristin MEDICARE A B [id number] 2013 00:00:00 GENERIC MEDICARE [id number] 2019 SUPPLEMENT 00:00:00 Problems Condition Condition Condition [...] post-opera Nathalia kes tive pain tive pain [facility] Acute Acute Disease Active [facility] resp[facility]ator [...] Start Date Stop Date Source Natural mother [facility] Natural father [facility] Social History Social Habit Start Date Stop Date Quantity Comments Source [facility] Alcohol intake 2022-10-14 2022-10-14 Lifetime [facility] 00:00:00 00:00:00 non-drinker Hospital (finding) History of Social 2022-10-14 2022-10-[address] function 00:00:00 00:00:00 Hospital Tobacco use and 2022-09-28 2022-09-28 Smokeless [facility] exposure 00:00:00 00:00:00 tobacco non-user Hospital Exposure to 2022-08-01 2022-08-[address] [facility] SARS-CoV-2 (event) 00:00:00 19:00:00 [facility] Sex Assigned At [birth year] [facility] 00:00:00 00:00:00 Hospital Smoking Status Start Date Stop Date Source Never smoked tobacco [facility] Medications Ordered Filled Start Stop Current Ordering Indication Dosage Frequency Signature Comments Components Source Medication Medication Date Date Medication? Clinician (SIG) Name Name sennosides 2023-0 Yes 1{tbl} QD Take 1 [facility] (SENNA 5-[address] LAXATIVE 09:51: mouth Hospita ORAL) 58 daily. l sennosides 2022-0 Yes 1{tbl} QD Take 1 [facility] (SENNA 5-[address] LAXATIVE 09:51: mouth Hospita ORAL) 58 daily. l losartan 2022-0 Yes [id number] 100mg QD Take 1 M ethodi (COZAAR) 5-[address] 100 MG 00:00: (100 mg Hospita tablet 00 total) by l mouth daily. metoprolol 2022-0 Yes [id number] 50mg QD Take 1 Methodi succinate 5-24 tablet (50 st XL 00:00: mg total) Hospita (TOPROL-XL) 00 by mouth l 50 mg 24 hr daily. tablet furosemide 2022-0 Yes [id number] 20mg Q24H Take 1 Methodi (LASIX) 20 5-24 tablet (20 st mg tablet 00:00: mg total) Hos jessica 00 by mouth l daily as needed (leg swelling). losartan 2022-0 Yes [id number] 100mg QD Take 1 M ethodi (COZAAR) 5-[address] 100 MG 00:00: (100 mg Hospita tablet 00 total) by l mouth daily. metoprolol 2022-0 Yes [id number] 50mg QD Take 1 Methodi succinate 5-24 tablet (50 st XL 00:00: mg total) Hospita (TOPROL-XL) 00 by mouth l 50 mg 24 hr daily. tablet furosemide 2022-0 Yes [id number] 20mg Q24H Take 1 Methodi (LASIX) 20 5-24 tablet (20 st mg tablet 00:00: mg total) Hos jessica 00 by mouth l daily as needed (leg swelling). atorvastati 2022-0 Yes [id number] 40mg QD Take 1 Methodi n (LIPITOR) 5-08 tablet (40 st 40 mg 00:00: mg total) Hospita tablet 00 by mouth l nightly. atorvastati 2022-0 Yes [id number] 40mg QD Take 1 Methodi n (LIPITOR) 5-08 tablet (40 st 40 mg 00:00: mg total) Hospita tablet 00 by mouth l nightly. losartan 2022-0 3- No [id number] 50mg QD Take 1 M ethodi (COZAAR) 50 5-12 26-24 tablet (50 s t MG tablet 00:00: 00:00 mg total) Ho spita 00 :00 by mouth l daily. metoprolol No [id number] 25mg QD Take 1 Methodi succinate 5-12 26-24 tablet (25 st XL 00:00: 00:00 mg total) Hospita (TOPROL-XL) 00 :00 by mouth l 25 mg 24 hr daily. tablet losartan No [id number] 50mg QD Take 1 M ethodi (COZAAR) 50 5-12 26-24 tablet (50 s t MG tablet 00:00: 00:00 mg total) Ho spita 00 :00 by mouth l daily. metoprolol No [id number] 25mg QD Take 1 Methodi succinate -12 26-24 tablet (25 st XL 00:00: 00:00 mg total) Hospita (TOPROL-XL) 00 :00 by mouth l 25 mg 24 hr daily. tablet Ferrocite Yes 1{tbl} QD Take 1 Meth allyson Plus 106 mg 4-[address] iron- 1 mg 00:00: mouth Hospit a tablet 00 daily with l breakfast. Ferrocite 0 Yes 1{tbl} QD Take 1 Meth allyson Plus 106 mg 4-[address] iron- 1 mg 00:00: mouth Hospit a tablet 00 daily with l breakfast. traZODone 2022- No TAKE 1/2 Met [facility]odi (DESYREL) 4-10 10-[address] 50 MG 00:00: 00:00 TABLET AT Hospit a tablet 00 :00 BEDTIME l NEEDED traZODone 2022- No TAKE 1/2 Met hodi (DESYREL) 4-20 -[address] 50 MG 00:00: 00:00 TABLET AT Hospit a tablet 00 :00 BEDTIME l NEEDED FeroSuL 325 2022- No 325mg QD Take 1 Me thodi mg (65 mg 4-20 -[address] iron) 00:00: 00:00 (325 mg [...] mouth 2 (two) times a day. furosemide No TAKE 1 Meth allyson (LASIX) 20 -20 05-[address] mg tablet 00:00: 00:00 MOUTH AT 8 H ospita 00 :00 AM AND AT l 3 PM potassium No 10meq Q.5D Take 1 Meth allyson chloride -20 05-08 tablet (10 st (KLOR-CON) 00:00: 00:00 mEq total) Hospita 10 MEQ CR 00 :00 by mouth 2 l tablet (two) times a day. atorvastati No 40mg QD Take 1 Met hodi n (LIPITOR) 4-20 05-08 tablet (40 s t 40 mg 00:00: 00:00 mg total) Hospit a tablet 00 :00 by mouth l nightly. nystatin No APPLY Methodi (MYCOSTATIN - 05-[address] ) 100,000 00:00: 00:00 TOPICALLY Ho spita unit/gram 00 :00 TO l powder AFFECTED AREA TWICE DAILY FeroSuL 325 2022- No 325mg QD Take 1 Me thodi mg (65 mg -20 05-[address] iron) 00:00: 00:00 (325 mg Hospita tablet 00 :00 total) by l mouth daily. metoprolol 2022- No TAKE 1 Meth allyson succinate 4-20 05-[address] XL 00:00: 00:00 MOUTH ONCE Hospit a (TOPROL-XL) 00 :00 DAILY AT l 25 mg 24 hr 6AM tablet losartan 2022- No 25mg QD Take 1 Method i (COZAAR) 25 09-10-08 tablet (25 s t MG tablet 00:00: 00:00 mg total) Ho spita 00 :00 by mouth l daily. gabapentin 2022- No 100mg Q.5D Take 1 Met hodi (NEURONTIN) 09-10-[address] 100 mg 00:00: 00:00 (100 mg Hospita capsule 00 :00 total) by l mouth 2 (two) times a day. furosemide 2022- No TAKE 1 Meth allyson (LASIX) 20 09-10- TABLET BY st mg tablet 00:00: 00:00 MOUTH AT 8 H ospita 00 :00 AM AND AT l 3 PM potassium 2022- No 10meq Q.5D Take 1 Meth allyson chloride 09-10- tablet (10 st (KLOR-CON) 00:00: 00:00 mEq total) Hospita 10 MEQ CR 00 :00 by mouth 2 l tablet (two) times a day. atorvastati 2022- No 40mg QD Take 1 Met hodi n (LIPITOR) 09-10 tablet (40 s t 40 mg 00:00: 00:00 mg total) Hospit a tablet 00 :00 by mouth l nightly. nystatin 2022- No APPLY Methodi (MYCOSTATIN 09-[address] ) 100,000 00:00: 00:00 TOPICALLY Ho spita unit/gram 00 :00 TO l powder AFFECTED AREA TWICE DAILY polyethylen Yes 17g QD Take [address] e glycol 4-12 by mouth [facility] (GLYCOLAX) 00:00: in the Medic al 17 gram 00 morning. Center packet aspirin 2023- Yes 81mg QD Take 1 [facility]i (ECOTRIN) 09-0212 tablet (81 st 81 MG 00:00: 04:59 mg total) Hospit a enteric 00 :00 by mouth l coated daily. tablet aspirin 2023- Yes 81mg QD Take 1 [facility] (ECOTRIN) 09-02 tablet (81 st 81 MG 00:00: 04:59 mg total) Hospit a enteric 00 :00 by mouth l coated daily. tablet aspirin 81 2023- Yes 81mg QD Take [address] MG EC 09-02 tablet (81 [facility] tablet 00:00: 23:59 mg total) Medic al 00 :00 by mouth Center in the morning. metoprolol 2023- Yes 25mg QD Take [address] succinate 09-02 tablet (25 Dorys es (TOPROL-XL) 00:00: 23:59 [...] by mouth Center in the morning. amIODarone 2022-2022- No 200mg Take 1 [facility] (PACERONE) 09-[address] 200 MG 00:00: 00:00 (200 mg Hospita tablet 00 :00 total) by l mouth. amIODarone 2022- No 200mg Take 1 Met hodi (PACERONE) 09-[address] 200 MG 00:00: 00:00 (200 mg Hospita tablet 00 :00 total) by l mouth. heparin Yes 5000U Inject 1 [facility] t injection 4-11 mL (5,000 [facility] 5,000 00:00: Units Medical units/mL 00 total) Center subcutaneo usly every 8 (eight) hours. melatonin 3 Yes 3mg Take [address] [facility] mg tablet -11 tablet (3 [facility] 00:00: mg total) Medical 00 by mouth Center every night as needed for Insomnia or Sleep. empaglifloz Yes 10mg QD Take [address] in 4-11 tablet (10 [facility] (JARDIANCE) 00:00: mg total) M edical 10 mg 00 by mouth Center tablet in the morning. atorvastati 2023- Yes 40mg QD Take [address] n (LIPITOR) -11 04-10 tablet (40 L ukes 40 MG 00:00: 23:59 mg total) Medica l tablet 00 :00 by mouth Center nightly. senna-docus 2023- Yes 1{tbl} Q.5D Take [address] ate 09-01 04-10 tablet by [facility] (SENOKOT S) 00:00: [...] 40mg Take [address] (LASIX) 40 4- 04-10 tablet (40 Nathalia kes MG tablet 00:00: 23:59 mg total) Me dical 00 :00 by mouth Center in the morning and 1 tablet (40 mg total) in the evening. lidocaine 2022- Yes 1{patch Q24H Place [address] (LIDODERM) 09-01 0511 } patch onto Nathalia kes 5 % patch 00:00: 23:59 the skin Med ical 00 :00 in the Center morning for 30 days. Remove & Discard patch within 12 hours or as directed by . sennosides- 2022- No 1{tbl} Take 1 M ethodi docusate 09-[address] sodium 00:00: 00:00 mouth. Hospita (SENOKOT-S) 00 :00 l 8.6-50 mg per tablet sennosides- 2022-2022- No 1{tbl} Take 1 M ethodi docusate 09-[address] sodium 00:00: 00:00 mouth. [...] kg Systolic blood 2022-10-14 14:42:00 176 mm[Hg] Method [facility] pressure Diastolic blood 2022-10-14 14:42:00 107 mm[Hg] [facility] pressure Heart rate 2022-10-14 14:42:00 97 /min [facility] Respiratory rate 2022-10-14 14:42:00 12 /min [facility] Body height 2022-10-14 14:42:00 182.9 cm [facility] Body weight 2022-10-14 14:42:00 95.255 kg [facility] BMI 2022-10-14 14:42:00 28.48 kg/m2 [facility] Oxygen saturation in 2022-10-14 14:42:00 98 /min [facility] Arterial blood by Pulse oximetry Systolic blood 2022-09-02 08:20:00 121 mm[Hg] [facility] Diastolic blood 2022-09-02 08:20:00 58 mm[Hg] [facility] Heart rate 2022-09-02 08:20:00 81 /min [facility] Respiratory rate 2022-09-02 07:48:00 18 /min [facility] Oxygen saturation in 2022-09-02 07:48:00 96 /min [facility] Arterial blood by Medical Ce nter Pulse oximetry Body temperature 2022-09-02 07:00:00 35.94 [place] [facility] Body weight 2022-09-02 06:21:00 98.476 kg [facility] BMI 2022-09-02 06:21:00 29.44 kg/m2 [facility] Body height 2022-08-11 22:00:00 182.9 cm [facility] Procedures Procedure Date / Time Performing Clinician Source Performed TRANSTHORACIC 2022-10-20 14:45:37 Alfredo lOson [facility] Ho spital ECHOCARDIOGRAM COMPLETE W CONT STRAIN 3D IF NEEDED POCT-GLUCOSE METER 2022-09-02 08:04:00 Geri [facility] HEPATIC FUNCTION PANEL 2022-09-02 05:16:00 Octavio [facility] CBC (HEMOGRAM ONLY) 2022-09-02 05:16:00 [facility] BASIC METABOLIC PANEL 2022-09-02 05:16:00 [facility] MAGNESIUM 2022-09-02 05:16:00 [facility] POCT-GLUCOSE METER 2022-09-01 21:09:00 Geri Jerrell [facility] POCT-GLUCOSE METER 2022-09-01 17:08:00 Villafuerte [facility] POCT-GLUCOSE METER 2022-09-01 12:36:00 Villafuerte [facility] POCT-GLUCOSE METER 2022-09-01 07:11:00 [facility] 2022-09-01 05:17:00 Octavio [facility] CBC (HEMOGRAM ONLY) 2022-09-01 05:17:00 [facility] BASIC METABOLIC PANEL 2022-09-01 05:17:00 Kely-Smart, [facility] MAGNESIUM 2022-09-01 05:17:00 [facility] 2022-08-31 17:20:00 Villafuerte Jerrell [facility] POCT-GLUCOSE METER 2022-08-31 12:31:00 Villafuerte Jerrell [facility] POCT-GLUCOSE METER 2022-08-31 07:12:00 JoudaSantiago tom [facility] CBC (HEMOGRAM ONLY) 2022-08-31 05:00:00 Kely-[facility] HEPATIC FUNCTION PANEL 2022-08-31 04:59:00 Octavio [facility] BASIC METABOLIC PANEL 2022-08-31 04:59:00 [facility] 2022-08-31 04:59:00 [facility] PO[facility]SE METER 2022-08-30 17:13:00 JoudaSantiago tom [facility] POCT-GLUCOSE METER 2022-08-30 12:12:00 JoudaSantiago tom [facility] POCT-GLUCOSE METER 2022-08-30 08:06:00 JoudaSantiago tom [facility] [place]PATIC FUNCTION PANEL 2022-08-30 06:06:00 Octavio [facility] BASIC METABOLIC PANEL 2022-08-30 06:06:00 Octavio [facility] CBC (HEMOGRAM ONLY) 2022-08-30 06:06:00 [facility] 2022-08-30 06:06:00 [facility] PO[facility]SE METER 2022-08-29 19:47:00 JoudaSantiago tom [facility] POCT-GLUCOSE METER 2022-08-29 17:17:00 JoudaSantiago tom Bird [facility] POCT-GLUCOSE METER 2022-08-29 11:59:00 [facility] POCT-GLUCOSE METER 2022-08-29 07:13:00 Lawson [facility] HEPATIC FUNCTION PANEL 2022-08-29 06:07:00 Octavio [facility] BASIC METABOLIC PANEL 2022-08-29 06:07:00 Octavio [facility] CBC (HEMOGRAM ONLY) 2022-08-29 06:07:00 [facility] 2022-08-29 06:07:00 Kely-[facility] POCT-GLUCOSE METER 2022-08-28 20:19:00 Lawson Vernon [facility] POCT-GLUCOSE METER 2022-08-28 17:22:00 Lawson Vernon [facility] B-TYPE NATRIURETIC FACTOR 2022-08-28 13:06:00 Alfredo Olson [facility] (BNP) [facility] LACTIC ACID, VENOUS 2022-08-28 13:06:00 Alfredo Olson [facility] 2D ECHO W/ DOPPLER 2022-08-28 11:13:29 Enedelia Olson [facility] (CW/PW/COLOR) [facility] POCT-GLUCOSE METER 2022-08-28 11:00:00 Lawson [facility] POCT-GLUCOSE METER 2022-08-28 07:06:00 Jerrell Villafuerte [facility] HEPATIC FUNCTION PANEL 2022-08-28 06:42:00 Octavio [facility] BASIC METABOLIC PANEL 2022-08-28 06:42:00 Octavio [facility] MAGNESIUM 2022-08-28 06:42:00 [facility] (HE[facility] ONLY[facility] 2022-08-28 04:55:00 Kely-SmartAlbaro [facility] POCT-GLUCOSE METER 2022-08-27 20:59:00 [facility] 2022-08-27 17:37:00 [facility] BASIC [facility]ABOLIC PANEL 2022-08-27 16:45:00 [facility] VIEW PORTABLE / 2022-08-27 14:47:00 Brady Juarez [facility] POCT-GLUCOSE METER 2022-08-27 12:38:00 [facility] POCT-[facility]SE METER 2022-08-27 07:39:00 [facility] BASIC METABOLIC PANEL 2022-08-27 02:36:00 [facility] CALCI[facility], ION[facility]ED 2022-08-27 02:36:00 [facility] 2022-08-27 02:36:00 Cher Rebollar [facility] LACTIC ACID, ARTERIAL 2022-08-27 02:36:00 Serangelo [facility] MAGNESIUM 2022-08-27 02:36:00 Serenibisi [facility] PHOSPHORUS 2022-08-27 02:36:00 [facility] CBC W/PLT COUNT & AUTO 2022-08-27 02:36:00 Serenibisi [facility] DIFFERENTIAL [facility] CBC W/PLT COUNT & AUTO 2022-08-27 02:36:00 Serangelo [facility] DIFFERENTIAL [facility] XR CHEST 1 VIEW PORTABLE / 2022-08-27 02:32:00 Dante Fenton [facility] FIBRINOGEN 2022-08-27 02:30:00 [facility] PT/APTT 2022-08-27 02:30:00 Columba [facility] POCT-GLUCOSE METER 2022-08-27 00:05:00 [facility] LEUKO-REDUCED RBC 2022 23:55:00 AbbieEvy rodriguez [facility] POCT-GLUCOSE METER 2022 18:52:00 [facility] BASIC [facility]OLIC PANEL 2022 17:10:00 [facility] CALCIUM, IONIZED 2022 17:10:00 [facility] CBC (HEMOGRAM ONLY) 2022 17:10:00 Columba [facility] MAGNESIUM 2022 17:10:00 Columba [facility] PHOSPHORUS 2022 17:10:00 [facility] POCT-GLUCOSE METER 2022 11:59:00 [facility] OXY[facility] SATURATION, 2022 08:40:00 Columba [facility] LACTIC ACID, ARTERIAL 2022 08:40:00 [facility] OXYGEN SATURATION, 2022 06:01:00 Columba [facility] POCT-GLUCOSE METER 2022 06:00:00 [facility] BASIC METABOLIC PANEL 2022 02:33:00 [facility] BLOOD GAS, ARTERIAL 2022 02:33:00 [facility] 2022 02:33:00 [facility] HEPATIC FUNCTION PANEL 2022 02:33:00 Cher Rebollar [facility] FIBRINOGEN 2022 02:33:00 Serangelo [facility] LACTIC ACID, ARTERIAL 2022 02:33:00 Serangelo [facility] MAGNESIUM 2022 02:33:00 [facility] OXYGEN SATURATION, 2022 02:33:00 Serangelo [facility] MEASURED [facility] PHOSPHORUS 2022 02:33:00 [facility] PT/APTT 2022 02:33:00 Columba [facility] CBC W/PLT COUNT & AUTO 2022 02:33:00 Columba [facility] DIFFERENTIAL [facility] CBC W/PLT COUNT & AUTO 2022 02:33:00 Columba [facility] DIFFERENTIAL [facility] (CELLAVISION MANUAL DIFF) 2022 02:33:00 Columba Ihsan I [facility] XR CHEST 1 VIEW PORTABLE / 2022 01:27:00 Dante Fenton [facility] PREPARE RBC 2022-08-25 23:54:00 Brady Juarez [facility] OXYGEN SATURATION, 2022-08-25 23:34:00 Columba [facility] MEASURED [facility] CALCIUM, IONIZED 2022-08-25 23:34:00 [facility] POCT-GLUCOSE METER 2022-08-25 23:32:00 Jerrell Villafuerte [facility] RRL CRITICAL LABS 2022-08-25 20:28:00 Ev [facility] (ABG,NA,K,H&H,GLUCOSE) [facility] enter CALCIUM, IONIZED 2022-08-25 20:28:00 [facility] BLOOD GAS, ARTERIAL 2022-08-25 20:28:00 [facility] NA-STAT LAB 2022-08-25 20:28:00 [facility] 2022-08-25 20:28:00 [facility] GLU[facility]SE-[facility] LAB 2022-08-25 20:28:00 [facility] HGB/HCT (H&H) - STAT LAB 2022-08-25 20:28:00 [facility] POCT-GLUCOSE METER 2022-08-25 18:17:00 Geri Jerrell [facility] TRANSFUSE LEUKO-REDUCED 2022-08-25 17:31:[address]y [address] [facility] RED BLOOD CELLS [facility] POCT-GLUCOSE METER 2022-08-25 15:53:00 Geri Jerrell [facility] BASIC METABOLIC PANEL 2022-08-25 15:47:00 [facility] CALCIUM, IONIZED 2022-08-25 15:47:00 [facility] CBC (HEMOGRAM ONLY) 2022-08-25 15:47:00 [facility] MAGNESIUM 2022-08-25 15:47:00 [facility] PHOS[facility]US 2022-08-25 15:47:00 [facility] LACTIC ACID, ARTERIAL 2022-08-25 15:47:00 Dante Fenton [facility] LACTIC ACID, ARTERIAL 2022-08-25 12:18:00 Dante Fenton [facility] POCT-GLUCOSE METER 2022-08-25 12:13:00 Geri Jerrell Nemes[facility] POCT-GLUCOSE METER 2022-08-25 08:47:00 Villafuerte [facility] LACTIC ACID, ARTERIAL 2022-08-25 08:34:00 [facility] OXYGEN SATURATION, 2022-08-25 08:34:00 Serangelo [facility] BLOOD GAS, ARTERIAL 2022-08-25 08:34:00 Serenio, [facility] BASIC METABOLIC PANEL 2022-08-25 08:34:00 Phan Alexander [facility] CALCIUM, IONIZED 2022-08-25 08:34:00 Serenio, [facility] POCT-GLUCOSE METER 2022-08-25 07:27:00 Villafuerte, [facility] POCT-GLUCOSE METER 2022-08-25 06:27:00 Villafuerte, [facility] POCT-GLUCOSE METER 2022-08-25 03:19:00 Villafuerte, [facility] BASIC METABOLIC PANEL 2022-08-25 02:12:00 [facility] BLOOD GAS, ARTERIAL 2022-08-25 02:12:00 Sereni, [facility] CALCIUM, IONIZED 2022-08-25 02:12:00 [facility] 2022-08-25 02:12:00 Cher Rebollar [facility] FIBRINOGEN 2022-08-25 02:12:00 Serenio, [facility] LACTIC ACID, ARTERIAL 2022-08-25 02:12:00 Serenio, [facility] MAGNESIUM 2022-08-25 02:12:00 [facility] OXYGEN SATURATION, 2022-08-25 02:12:00 Serenibisi [facility] PHOSPHORUS 2022-08-25 02:12:00 [facility]TT 2022-08-25 02:12:00 [facility] CBC W/PLT COUNT & AUTO 2022-08-25 02:12:00 [facility] DIFFERENTIAL [facility] CBC W/PLT COUNT & AUTO 2022-08-25 02:12:00 [facility] DIFFERENTIAL [facility] POCT-GLUCOSE METER 2022-08-25 01:16:00 Geri Jerrell [facility] XR CHEST 1 VIEW PORTABLE / 2022-08-25 01:06:00 Dante Fenton [facility] POCT-GLUCOSE METER 2022-08-25 00:09:00 Geri [facility] BLOOD GAS, ARTERIAL 2022-08-24 23:08:00 [facility] POCT-GLUCOSE METER 2022-08-24 23:04:00 [facility] POCT-GLUCOSE METER 2022-08-24 21:53:00 Geri [facility] RRL CRITICAL LABS 2022-08-24 21:07:00 [facility] (ABG,NA,K,H&H,GLUCOSE) [facility] enter LACTIC ACID, ARTERIAL 2022-08-24 21:07:00 [facility] BLOOD GAS, ARTERIAL 2022-08-24 21:07:00 [facility] SODIUM NA-STAT LAB 2022-08-24 21:07:00 [facility] POTASSIUM-STAT LAB 2022-08-24 21:07:00 [facility] GLUCOSE-STAT LAB 2022-08-24 21:07:00 [facility] HGB/HCT (H&H) - STAT LAB 2022-08-24 21:07:00 [facility] POCT-GLUCOSE METER 2022-08-24 19:48:00 Jerrell Villafuerte [facility] RRL CRITICAL LABS 2022-08-24 19:36:00 [facility] es (ABG,NA,K,H&H,GLUCOSE) [facility] enter LACTIC ACID, ARTERIAL 2022-08-24 19:36:00 [facility] CALCIUM, IONIZED 2022-08-24 19:36:00 [facility] BLOOD GAS, ARTERIAL 2022-08-24 19:36:00 [facility] NA-STAT LAB 2022-08-24 19:36:00 [facility] POTASSIUM-STAT LAB 2022-08-24 19:36:00 [facility] 2022-08-24 19:36:00 [facility] HGB/HCT (H&H) - STAT LAB 2022-08-24 19:36:00 [facility] RRL CRITICAL LABS 2022-08-24 17:13:00 Juarez, Brady Gutiérrez [facility] es (ABG,NA,K,H&H,GLUCOSE) Medical C enter BLOOD GAS, ARTERIAL 2022-08-24 17:13:00 Juarez, Brady Gutiérrez [facility] SODIUM NA-STAT LAB 2022-08-24 17:13:00 Juarez, Brady Gutiérrez [facility] POTASSIUM-STAT LAB 2022-08-24 17:13:00 Juarez, Brady Gutiérrez [facility] GLUCOSE-STAT LAB 2022-08-24 17:13:00 Juarez, Brady Gutiérrez [facility] HGB/HCT (H&H) - STAT LAB 2022-08-24 17:13:00 Brady Juarez [facility] LACTIC ACID, ARTERIAL 2022-08-24 17:13:00 Dante Fenton [facility] XR CHEST 1 VIEW PORTABLE / 2022-08-24 15:45:[address] [facility] MISCELLANEOUS LAB ORDER 2022-08-24 14:39:00 Dante Fenton [facility] BLOOD GAS, ARTERIAL 2022-08-24 14:39:00 Dante Fenton [facility] CALCIUM, IONIZED 2022-08-24 14:39:00 Dante Fenton [facility] CBC W/PLT COUNT & AUTO 2022-08-24 14:39:[address] [facility] COMPREHENSIVE METABOLIC 2022-08-24 14:39:00 Dante Fenton [facility] FIBRINOGEN 2022-08-24 14:39:00 Dante Fenton [facility] LACTIC ACID, ARTERIAL 2022-08-24 14:39:00 Dante Fenton [facility] MAGNESIUM 2022-08-24 14:39:00 Dante Fenton [facility] OXYGEN SATURATION, 2022-08-24 14:39:00 Dante Fenton [facility] PHOSPHORUS 2022-08-24 14:39:00 Dante Fenton [facility] PROTHROMBIN TIME/INR 2022-08-24 14:39:00 Dante Fenton [facility] PT/APTT 2022-08-24 14:39:00 Dante Fenton [facility] SODIUM NA-STAT LAB 2022-08-24 14:39:00 Dante Fenton [facility] POTASSIUM-STAT LAB 2022-08-24 14:39:00 Dante Fenton [facility] GLUCOSE-STAT LAB 2022-08-24 14:39:00 Dante Fenton [facility] HGB/HCT (H&H) - STAT LAB 2022-08-24 14:39:00 Eliceo Dante Angel michael [facility] CBC W/PLT COUNT & AUTO 2022-08-24 14:39:[address] [facility] RRL CRITICAL LABS 2022-08-24 13:39:01 Teresa [facility] (ABG,NA,K,H&H,GLUCOSE) Medical C enter CALCIUM, IONIZED 2022-08-24 13:39:01 Teresa [facility] BLOOD GAS, ARTERIAL 2022-08-24 13:39:01 Teresa [facility] SODIUM NA-STAT LAB 2022-08-24 13:39:01 Teresa [facility] POTASSIUM-STAT LAB 2022-08-24 13:39:01 Teresa [facility] GLUCOSE-STAT LAB 2022-08-24 13:39:01 Teresa [facility] HGB/HCT (H&H) - STAT LAB 2022-08-24 13:39:01 Teresa [facility] TRANSFUSE LEUKO-REDUCED 2022-08-24 13:14:00 Teresa [facility] RED BLOOD CELLS [facility] PROTHROMBIN TIME/INR 2022-08-24 13:09:17 Teresa [facility] APTT 2022-08-24 13:09:17 Teresa [facility] FIBRINOGEN 2022-08-24 13:09:17 Teresa [facility] PLATELET COUNT 2022-08-24 13:09:17 Teresa [facility] POCT-ACT 2022-08-24 13:04:00 Jerrell Villafuerte [facility] RRL CRITICAL LABS 2022-08-24 12:41:26 Teresa [facility] (ABG,NA,K,H&H,GLUCOSE) Medical C enter CALCIUM, IONIZED 2022-08-24 12:41:26 Teresa [facility] BLOOD GAS, ARTERIAL 2022-08-24 12:41:26 Teresa [facility] SODIUM NA-STAT LAB 2022-08-24 12:41:26 Teresa [facility] POTASSIUM-STAT LAB 2022-08-24 12:41:26 Teresa [facility] GLUCOSE-STAT LAB 2022-08-24 12:41:26 Teresa [facility] HGB/HCT (H&H) - STAT LAB 2022-08-24 12:41:26 Teresa [facility] POCT-ACT 2022-08-24 12:21:00 Villafuerte Jerrell [facility] RRL CRITICAL LABS 2022-08-24 12:19:46 [facility] ([facility]G,NA,K,H&H,GLUCOSE) Medical C enter BLOOD GAS, ARTERIAL 2022-08-24 12:19:46 Brady Juarez [facility] SODIUM NA-STAT LAB 2022-08-24 12:19:46 Sophia [facility] POTASSIUM-STAT LAB 2022-08-24 12:19:46 Brady Juarez [facility] GLUCOSE-STAT LAB 2022-08-24 12:19:46 Sophia [facility] HGB/HCT (H&H) - STAT LAB 2022-08-24 12:19:46 Brady Juarez Brock [facility] POCT-ACT 2022-08-24 11:42:00 Geri Jerrell [facility] RRL CRITICAL LABS 2022-08-24 11:40:21 Brady Juarez [facility] Dorys es (ABG,NA,K,H&H,GLUCOSE) Medical C enter BLOOD GAS, ARTERIAL 2022-08-24 11:40:[address] [facility] SODIUM NA-STAT LAB 2022-08-24 11:40:21 Brady Juarez [facility] POTASSIUM-STAT LAB 2022-08-24 11:40:21 Brady Juarez [facility] GLUCOSE-STAT LAB 2022-08-24 11:40:21 Sophia Brady Gutiérrez [facility] HGB/HCT (H&H) - STAT LAB 2022-08-24 11:40:21 Sophia Brady Gutiérrez [facility] POCT-ACT 2022-08-24 11:11:00 VillafuerteJerrell [facility] RRL CRITICAL LABS 2022-08-24 11:09:42 Sophia Brady Lin es (ABG,NA,K,H&H,GLUCOSE) Medical C enter BLOOD GAS, ARTERIAL 2022-08-24 11:09:42 Sophia Brady Gutiérrez [facility] SODIUM NA-STAT LAB 2022-08-24 11:09:42 Sophia Brady Gutiérrez [facility] POTASSIUM-STAT LAB 2022-08-24 11:09:42 Sophia Brady Gutiérrez [facility] GLUCOSE-STAT LAB 2022-08-24 11:09:42 Sophia Brady Gutiérrez [facility] HGB/HCT (H&H) - STAT LAB 2022-08-24 11:09:42 Sophia Brady Gutiérrez [facility] RRL CRITICAL LABS 2022-08-24 10:41:01 Sophia Brady Perez [facility] (ABG,NA,K,H&H,GLUCOSE) Medical C enter BLOOD GAS, ARTERIAL 2022-08-24 10:41:01 Sophia Brady Gutiérrez [facility] SODIUM NA-STAT LAB 2022-08-24 10:41:01 Sophia Brady Gutiérrez [facility] POTASSIUM-STAT LAB 2022-08-24 10:41:01 Sophia Brady Gutiérrez [facility] GLUCOSE-STAT LAB 2022-08-24 10:41:01 Sophia Brady Gutiérrez [facility] HGB/HCT (H&H) - STAT LAB 2022-08-24 10:41:01 Sophia Brady Gutiérrez [facility] POCT-ACT 2022-08-24 10:41:00 Jerrell Villafuerte [facility] POCT-ACT 2022-08-24 10:14:00 VillafuerteArjunan [facility] POCT-ACT 2022-08-24 08:07:00 [facility] 2022-08-24 07:53:07 Teresa [facility] (ABG,NA,K,H&H,GLUCOSE) Medical C enter CALCIUM, IONIZED 2022-08-24 07:53:07 Teresa [facility] BLOOD GAS, ARTERIAL 2022-08-24 07:53:07 Teresa [facility] SODIUM NA-STAT LAB 2022-08-24 07:53:07 Teresa [facility] POTASSIUM-STAT LAB 2022-08-24 07:53:07 Teresa [facility] GLUCOSE-STAT LAB 2022-08-24 07:53:07 Teresa [facility] HGB/HCT (H&H) - STAT LAB 2022-08-24 07:53:07 Teresa [facility] ANESTHESIA ANN-MARIE 2022-08-24 07:41:08 Juan J Quevedo [facility] CABG, USING INTERNAL 2022-08-24 07:12:00 Juarez, Brady Gutiérrez [facility] THORACIC ARTERY AND Medical Cent er SAPHENOUS VEIN GRAFT MAZE PROCEDURE, USING 2022-08-24 07:12:00 Juarez, Brady Gutiérrez [facility] CRYOABLATION [facility] LIGATION, ATRIAL APPENDAGE 2022-08-24 07:12:00 Juarez, Brady JOAQUIN [facility] REPLACEMENT, AORTIC VALVE 2022-08-24 07:12:00 Juarez, Brady Gutiérrez [facility] ECHOCARDIOGRAM, 2022-08-24 07:12:00 Juarez, Brady Gutiérrez [facility] TRANSESOPHAGEAL [facility] SURGICAL PROCUREMENT, 2022-08-24 07:12:00 Juarez, Brady Gutiérrez [facility] VEIN, ENDOSCOPIC [facility] BASIC METABOLIC PANEL 2022-08-24 03:52:00 Angela Winslow [facility] CBC (HEMOGRAM ONLY) 2022-08-24 03:52:00 Geri Jerrell [facility] APTT 2022-08-24 03:52:00 Rupert Dean [facility] TYPE AND SCREEN, AUTOMATED 2022-08-24 03:52:00 Jerrell Villafuerte [facility] POCT-GLUCOSE METER 2022-08-23 21:19:00 Villafuerte, Jerrell Nemesio [facility] POCT-GLUCOSE METER 2022-08-23 17:01:00 Villafuerte, Jerrell Nemesio [facility] POCT-GLUCOSE METER 2022-08-23 12:04:00 Villafuerte, Jerrell Nemesio [facility] POCT-GLUCOSE METER 2022-08-23 07:43:00 Villafuerte, Jerrell Nemesio [facility] APTT 2022-08-23 05:08:00 Villafurete Jerrell Nemesio [facility] BASIC METABOLIC PANEL 2022-08-23 05:08:00 Angela Winslow [facility] POCT-GLUCOSE METER 2022-08-22 21:56:00 Villafuerte, Jerrell Herr [facility] POCT-GLUCOSE METER 2022-08-22 17:06:00 Geri Jerrell Herr [facility] POCT-GLUCOSE METER 2022-08-22 11:53:00 Villafuerte, Jerrellkathleen Herr [facility] POCT-GLUCOSE METER 2022-08-22 07:29:00 Villafuerte, Jerrell Nemesio [facility] BASIC METABOLIC PANEL 2022-08-22 01:05:00 Angela Winslow [facility] APTT 2022-08-22 01:05:00 Rupert Dean [facility] POCT-GLUCOSE METER 2022-08-21 20:47:00 Geri Jerrellkathleen Josephoc [facility] APTT 2022-08-21 18:32:00 Rupert Dean [facility] POCT-GLUCOSE METER 2022-08-21 17:19:00 Geri Jerrell Nemesio [facility] POCT-GLUCOSE METER 2022-08-21 11:28:00 Villafuerte, Jerrell Nemesio [facility] APTT 2022-08-21 10:57:00 Rupert Dean Michael [facility] POCT-GLUCOSE METER 2022-08-21 07:19:00 Geri Jerrell [facility] BASIC METABOLIC PANEL 2022-08-21 03:56:00 [facility] 2022-08-21 03:56:00 Rupert Dean [facility] APTT 2022-08-20 21:37:00 Rupert Dean [facility] POCT-GLUCOSE METER 2022-08-20 21:21:00 Geri [facility] 2022-08-20 17:11:00 [facility] BASIC METABOLIC PANEL 2022-08-20 15:10:00 Nayla [facility] APTT 2022-08-20 14:44:00 Rupert Dean [facility] APTT 2022-08-20 12:36:00 Rupert Dean [facility] POCT-GLUCOSE METER 2022-08-20 12:01:00 [facility] PO[facility]UCOSE METER 2022-08-20 07:51:00 [facility] 2022-08-20 04:11:00 Rupert Dean [facility] POCT-GLUCOSE METER 2022-08-19 20:59:00 Geri Jerrell Nemesio [facility] POCT-GLUCOSE METER 2022-08-19 17:10:00 Villafuerte [facility] 2022-08-19 16:47:00 Rupert Dean [facility] POCT-GLUCOSE METER 2022-08-19 12:28:00 Geri [facility] 2022-08-19 09:25:00 Rupert Dean [facility] POCT-GLUCOSE METER 2022-08-19 07:23:00 Jerrell Villafuerte [facility] COMPREHENSIVE METABOLIC 2022-08-19 01:51:00 Rupert Dean [facility] APTT 2022-08-19 01:51:00 Rupert Dean [facility] CAROTID DOPPLER BILATERAL 2022-08-18 21:11:00 Rupert Dean [facility] VEIN MAPPING LEGS 2022-08-18 21:11:00 Rupert Dean [facility] POCT-GLUCOSE METER 2022-08-18 21:08:00 Geri [facility] POCT-ACT 2022-08-18 16:08:00 [facility] 2022-08-18 13:52[facility]00 [facility] 2022-08-18 07:36:00 Geri [facility] ABORH, MANUAL 2022-08-18 05:50:00 Amara Limon [facility] COMPREHENSIVE METABOLIC 2022-08-18 05:34:00 Rupert Dean [facility] APTT 2022-08-18 05:34:00 [facility] TYPE AND SCREEN, AUTOMATED 2022-08-18 05:34:00 Rupert Dean [facility] APTT 2022-08-17 22:22:00 Rupert Dean [facility] POCT-GLUCOSE METER 2022-08-17 21:06:00 Geri [facility] POCT-GLUCOSE METER 2022-08-17 17:00:00 Geri [facility] APTT 2022-08-17 15:33:00 Rupert Dean [facility] 2D ECHO W/ DOPPLER 2022-08-17 12:49:13 Alfredo Olson [facility] (CW/PW/COLOR) [facility] POCT-GLUCOSE METER 2022-08-17 11:54:00 GeriJerrell Nemesio [facility] POCT-GLUCOSE METER 2022-08-17 07:42:00 Geri Jerrell Nemesio [facility] APTT 2022-08-17 07:38:00 Rupert Dean [facility] COMPREHENSIVE METABOLIC 2022-08-17 04:49:00 Rupert Dean [facility] CBC W/PLT COUNT & AUTO 2022-08-17 04:49:[address] [facility] APTT 2022-08-17 04:49:00 Sandrita [facility] CBC W/PLT COUNT & AUTO 2022-08-17 04:49:[address] [facility] (CELLAVISION MANUAL DIFF) 2022-08-17 04:49:[address] [facility] POCT-GLUCOSE METER 2022-08-16 20:27:00 [facility] POCT-GLUCOSE METER 2022-08-16 17:12:[address] [facility] POCT-GLUCOSE METER 2022-08-16 12:25:[address] [facility] APTT 2022-08-16 12:13:00 Rupert Dean [facility] POCT-GLUCOSE METER 2022-08-16 07:46:00 [facility] HEPATIC FUNCTION PANEL 2022-08-16 04:20:00 Waldo Figueroa [facility] BASIC METABOLIC PANEL 2022-08-16 04:20:00 [facility] CALCIUM, IONIZED 2022-08-16 04:20:00 [facility] PHOSPHORUS 2022-08-16 04:20:00 Sandrita [facility] CBC W/PLT COUNT & AUTO 2022-08-16 04:20:[address] [facility] MAGNESIUM 2022-08-16 04:20:00 Sandrita [facility] APTT 2022-08-16 04:20:00 Rupert Dean [facility] CBC W/PLT COUNT & AUTO 2022-08-16 04:20:[address] [facility] (CELLAVISION MANUAL DIFF) 2022-08-16 04:20:00 [facility] POCT-GLUCOSE METER 2022-08-15 21:20:[address] [facility] APTT 2022-08-15 21:08:00 Rupert [facility] APTT 2022-08-15 19:28:00 Rupert Dean [facility] POCT-GLUCOSE METER 2022-08-15 17:24:[address] [facility] BLOOD GAS, VENOUS 2022-08-15 13:17:00 [facility] BASIC METABOLIC PANEL 2022-08-15 13:17:00 [facility] APTT 2022-08-15 13:17:00 Jermaine Rupert [facility] POCT-GLUCOSE METER 2022-08-15 12:08:[address] [facility] POCT-GLUCOSE METER 2022-08-15 07:43:00 Jerrell Villafuerte [facility] XR CHEST 1 VIEW PORTABLE / 2022-08-15 04:53:00 Waldo Figueroa [facility] MAGNESIUM 2022-08-15 04:22:00 Alfredo Olson [facility] LACTIC ACID, VENOUS 2022-08-15 04:22:00 Alfredo Olson [facility] HEPATIC FUNCTION PANEL 2022-08-15 04:22:00 Waldo Figueroa [facility] B-TYPE NATRIURETIC FACTOR 2022-08-15 04:22:00 WhitneyRekathleen Belle [facility] METABOLIC PANEL 2022-08-15 04:22:00 Alfredo Olson [facility] APTT 2022-08-15 04:22:00 Rupert Dean [facility] POCT-GLUCOSE METER 2022-08-14 20:41:00 Jerrell Villafuerte [facility] APTT 2022-08-14 20:04:00 Rupert Dean [facility] POCT-GLUCOSE METER 2022-08-14 17:15:00 Jerrell Villafuerte [facility] APTT 2022-08-14 14:07:00 Rupert Dean [facility] POCT-GLUCOSE METER 2022-08-14 12:22:00 Geri Jerrell Nemesio [facility] POCT-GLUCOSE METER 2022-08-14 07:56:00 [facility] BASIC METABOLIC PANEL 2022-08-14 06:03:00 Waldo Figueroa [facility] CBC (HEMOGRAM ONLY) 2022-08-14 06:03:00 [facility] HEPATIC FUNCTION PANEL 2022-08-14 06:03:00 Waldo Figueroa [facility] APTT 2022-08-14 06:03:00 Rupert Dean [facility] XR CHEST 1 VIEW PORTABLE / 2022-08-14 05:26:00 Waldo Figueroa [facility] VANCOMYCIN LEVEL, TROUGH 2022-08-13 23:45:00 Waldo Figueroa [facility] APTT 2022-08-13 23:45:00 Rupert Dean [facility] POCT-GLUCOSE METER 2022-08-13 21:09:00 Jerrell Villafuerte [facility] APTT 2022-08-13 16:59:00 Rupert Dean [facility] US ABDOMEN COMPLETE 2022-08-13 13:03:00 Andrea Groves [facility] US PELVIS LIMITED 2022-08-13 12:53:00 Sharon Clark [facility] POCT-GLUCOSE METER 2022-08-13 11:07:00 Mayra [facility] APTT 2022-08-13 09:29:00 Rupert Dean [facility] POCT-GLUCOSE METER 2022-08-13 08:07:00 [facility]OLIC PANEL 2022-08-13 03:29:00 [facility] CBC (HEMOGRAM ONLY) 2022-08-13 03:29:00 [facility] HEPATIC FUNCTION PANEL 2022-08-13 03:29:00 Carolina [facility] T SPOT TB 2022-08-13 03:29:00 Bard Gaviota [facility] APTT 2022-08-13 03:29:00 Rupert Dean [facility] MAGNESIUM 2022-08-13 03:29:00 Germain [facility] POCT-GLUCOSE METER 2022-08-12 21:19:00 Mayra [facility] APTT 2022-08-12 21:17:00 Rupert [facility] POCT-GLUCOSE METER 2022-08-12 17:50:00 Mayra [facility] BASIC METABOLIC PANEL 2022-08-12 17:44:00 Gaviota Salinas [facility] 2D ECHO W/ DOPPLER 2022-08-12 16:57:41 Gaviota Salinas [facility] (CW/PW/COLOR) [facility] HIGH SENSITIVITY TROPONIN 2022-08-12 15:40:00 Gaviota Salinas [facility] APTT 2022-08-12 14:06:00 Rupert Dean [facility] POCT-GLUCOSE METER 2022-08-12 11:21:00 Mayra [facility] XR CHEST 1 VIEW PORTABLE / 2022-08-12 08:50:[address] [facility] POCT-GLUCOSE METER 2022-08-12 08:03:00 Mayra [facility] SPUTUM CULTURE + GRAM 2022-08-12 05:55:00 Andrea Groves [facility] DRUG TEST, GENERAL 2022-08-12 05:32:00 Javier Yanez [facility] TOXICOLOGY, [facility] BASIC METABOLIC PANEL 2022-08-12 04:15:00 [facility] CBC (HEMOGRAM ONLY) 2022-08-12 04:15:00 Carolina [facility] HEPATIC FUNCTION PANEL 2022-08-12 04:15:00 [facility] HIGH SENSITIVITY TROPONIN 2022-08-12 04:15:00 Javier Yanez [facility] APTT 2022-08-12 04:15:00 Rupert Dean [facility] MAGNESIUM 2022-08-12 04:15:00 Andrea Groves [facility] MRSA SCREEN 2022-08-11 23:32:00 Dee Dee [facility] STREP PNEUMONIAE ANTIGEN 2022-08-11 23:26:00 Hotrobina [facility] LEGIONELLA ANTIGEN, URINE 2022-08-11 23:25:00 Dee Dee [facility] HIGH SENSITIVITY TROPONIN 2022-08-11 23:15:00 Javier Yanez [facility] LACTIC ACID, VENOUS 2022-08-11 23:15:00 Javier Yanez [facility] APTT 2022-08-11 23:15:00 Javier Yanez [facility] BLOOD GAS, VENOUS 2022-08-11 23:15:00 Sharon Clark [facility] HEMOGLOBIN A1C 2022-08-11 23:15:00 Andrea Groves [facility] BLOOD CULTURE 2022-08-11 23:14:00 Andrea Groves [facility] ECG 12-LEAD 2022-08-11 23:01:57 [facility] 12-LEAD 2022-08-11 23:01:57 Unknown, Hl7 Doctor [facility] CT CHEST WITHOUT IV 2022-08-11 21:34:00 Alfredo Olson [facility] CT BRAIN WITHOUT IV 2022-08-11 21:34:00 [facility] LACTIC ACID, VENOUS 2022-08-11 21:03:00 [facility] 2022-08-11 21:03:00 [facility] 2022-08-11 21:03:00 [facility] TSH/FREE T4 IF INDICATED 2022-08-11 21:03:00 Javier Yanez [facility] HEPATITIS PANEL, ACUTE 2022-08-11 21:03:00 Andrea Groves [facility] CBC W/PLT COUNT & AUTO 2022-08-11 19:51:00 Nestor, [facility] BASIC METABOLIC PANEL 2022-08-11 19:51:00 Nestor, [facility] HIGH SENSITIVITY TROPONIN 2022-08-11 19:51:00 Nestor, [facility] B-TYPE NATRIURETIC FACTOR 2022-08-11 19:51:00 [facility] (BNP) [facility] HEPATIC FUNCTION PANEL 2022-08-11 19:51:00 Javier Yanez [facility] MAGNESIUM 2022-08-11 19:51:00 Javier Yanez [facility] LIPID PANEL 2022-08-11 19:51:00 Andrea Groves [facility] CBC W/PLT COUNT & AUTO 2022-08-11 19:51:[address] [facility] (CELLAVISION MANUAL DIFF) 2022-08-11 19:51:00 Josefina Baez [facility] VASCULAR DIAGRAM -SCAN 2022-08-11 00:00:00 ProviderRadha [facility] Plan of Care Planned Activity Planned Date Details Comments Source Future Scheduled 2023-08-25 Tobacco Cessation [facility] Test 00:00:00 [facility] Scre[facility] (12+) [code = Tobacco Cessation Counseling and Screening (12+)] Future Scheduled 2023-01-22 INFLUENZA VACCINE [facility] Test 00:00:00 (Season Ended) [code = [facility] INFLUENZA VACCINE (Season Ended)] Future Scheduled 2022-11-13 Screening [facility] Test 09:21:59 malignant neoplasm of colon (procedure) [code = 595215698] Future Scheduled 2022-11-13 Screening for [facility] Test 09:21:59 malignant neoplasm of colon (procedure) [code = 957920958] Future Scheduled 2022-11-13 Screening for [facility] Test 09:21:59 malignant neoplasm of colon (procedure) [code = 236590769] Future Scheduled 2022-11-13 COVID-19 VACCINE (#1) [facility] Test 09:21:59 [code = COVID-19 VACCINE (#1)] Future Scheduled 2022-11-13 65[facility] 09:21:59 VACCINE (1 - PCV) [code = 65+ PNEUMOCOCCAL VACCINE (1 - PCV)] Future Scheduled 2022-11-13 [facility] 09:21:59 (procedure) [code = 786103379] Future Scheduled 2022-11-13 Screening for [facility] Test 09:21:59 malignant neoplasm of colon (procedure) [code = 984133095] Future Scheduled 2022-11-13 Screening [facility] Test 09:21:59 malignant neoplasm of colon (procedure) [code = 352797613] Future Scheduled 2022-11-13 SHINGLES [facility]ACCINES ([facility] 09:21:59 of 2) [code = SHINGLES VACCINES (1 of 2)] Future Scheduled 2022-11-13 [facility]ACCINE [facility] 09:21:59 [code = INFLUENZA VACCINE] Future Scheduled 2022-11-01 Screening for [facility] Test 02:00:11 malignant neoplasm of colon (procedure) [code = 639546986] Future Scheduled 2022-11-01 Screening for [facility] Test 02:00:11 malignant neoplasm of colon (procedure) [code = 995154785] Future Scheduled 2022-11-01 Screening for [facility] Test 02:00:11 malignant neoplasm of colon (procedure) [code = 579560583] Future Scheduled 2022-11-01 COVID-19 VACCINE (#1) [facility] Test 02:00:11 [code = COVID-19 VACCINE (#1)] Future Scheduled 2022-11-01 65+ [facility] [facility] 02:00:11 VACCINE (1 - PCV) [code = 65+ PNEUMOCOCCAL VACCINE (1 - PCV)] Future Scheduled 2022-11-01 Hepatitis C screening [facility] Test 02:00:11 (procedure) [code = 966411426] Future Scheduled 2022-11-01 Screening for [facility] Test 02:00:11 malignant neoplasm of colon (procedure) [code = 026231561] Future Scheduled 2022-11-01 [facility] Test 02:00:11 malignant neoplasm of colon (procedure) [code = 176331484] Future Scheduled 2022-11-01 SHINGLES VACCINES (1 Met [facility] Test 02:00:11 of 2) [code = SHINGLES VACCINES (1 of 2)] Future Scheduled 2022-11-01 [facility]:11 [code = INFLUENZA VACCINE] Future Scheduled 2022-08-[address] [facility] measurement [facility] (procedure) [code = 62199370] Future Scheduled 2022-05-[address] [...] 00:00:00 examination Medical Center (regime/therapy) [code = 144324623] Future Scheduled 1958 Urine screening for [facility] Test 00:00:00 protein (procedure) [facility] Center [code = 109259237] Future Scheduled 1954 PNEUMOCOCCAL 65+ YRS [facility] [...] [facility] colon (procedure) [code = 979454083] Future Scheduled [address] [facility] Test 00:00:00 malignant neoplasm of [facility] colon (procedure) [code = 495608178] Future Scheduled [address] [facility] 00[facility]00 [facility] [code = 653532600] Future Scheduled [address] [facility] Test 00:00:00 malignant ne[facility] of [facility] colon (procedure) [code = 653044594] Future Scheduled 1950 Sigmoidoscopy [facility]code [facility]oscopy] Medical Cente r Encounters Start End Encounter Admission Attending Care Care Encounter Source Date/Time Date/Time Type Type Clinicians Facility Department ID 2022-08-11 [facility] ER [facility] Cardiology [id number] 00:00:00 Encounter [facility] 2022-10-26 2022-10-26 Outpatient GEOVANNY PÉREZ [facility] [id number] SLE 07:59:06 23:59:00 MORALES 2022-10-26 2022-10-26 Outpatient GEOVANNY RUDD [facility] [id number] SLE 08:35:25 08:35:25 DONITA 2022-10-20 2022-10-20 Orders Alfredo Olson 1.2.840.1 [id number] Methodi 00:00:00 00:00:00 Only Jose Maria 92961.1.[address] 3.430.2.7 Hospit a .3.013689 l .8 2022-10-20 2022-10-20 Orders Alfredo Olson 1.2.840.1 [id number] Methodi 00:00:00 00:00:00 Only Jose Maria 91465.1.[address] 3.430.2.7 Hospit a .3.986739 l .8 2022-10-14 2022-10-14 Office Alfredo Olson 1.2.840.1 [id number] Methodi 09:20:00 10:43:55 Visit Jose Maria 67301.1.[address] 3.430.2.7 Hospit a .3.399089 l .8 2022-10-14 2022-10-14 Office Alfredo Olson 1.2.840.1 [id number] Methodi 09:20:00 10:43:55 Visit Jose Maria [address]8761.1.[address] 3.430.2.7 Hospit a .3.670674 l .8 2022-10-14 2022-10-14 Travel 1.2.840.1 1.2.100.740 [id number] Methodi 00:00:00 00:00:[address] 3.430.2.7 0.2.7.3.698 Ho spita .3.878202 084.8 l .8 2022-10-14 2022-10-14 Outpatient [facility] [id number] [place] 00:00:00 00:00:[address] 2022-10-14 2022-10-14 Travel 1.2.840.1 1.2.834.791 [id number] Methodi 00:00:00 00:00:[address] 3.430.2.7 0.2.7.3.698 Ho spita .3.416936 084.8 l .8 2022-10-08 2022-10-08 Outpatient [facility] [id number] [facility] 00:00:00 00:00:00 2022-09-30 2022-09-30 Telephone Younis, 1.2.840.1 [id number] Methodi 00:00:00 00:00:[address] Isha [address] 3.430.2.7 Hospit a .3.329861 l .8 2022-09-30 2022-09-30 Telephone Younis, 1.2.840.1 [id number] Methodi 00:00:00 00:00:[address] Isha [address] 3.430.2.7 Hospit a .3.398572 l .8 2022-09-28 2022-09-28 Office Alfredo Olson 1.2.840.1 [id number] Methodi 10:00:00 11:00:28 Visit Jose Maria 13623.1.[address] 3.430.2.7 Hospit a .3.466686 l .8 2022-09-28 2022-09-28 Office Alfredo Olson 1.2.840.1 [id number] Methodi 10:00:00 11:00:28 Visit Jose Maria 79218.1.[address] 3.430.2.7 Hospit a .3.913655 l .8 2022-09-28 2022-09-28 Travel 1.2.840.1 1.2.352.154 [id number] [id number] Methodi 00:00:00 00:00:[address] 3.430.2.7 0.2.7.3.698 Ho spita .3.134455 084.8 l .8 2022-09-28 2022-09-28 Travel 1.2.840.1 1.2.270.060 [id number] [id number] Methodi 00:00:00 00:00:[address] 3.430.2.7 0.2.7.3.698 Ho spita .3.275121 084.8 l .8 2022-09-14 2022-09-14 Outpatient JESSE PENALOZA [facility] [id number] [facility] 00:00:00 00:00:00 JOAQUIN 2022-09-14 2022-09-14 Travel 1.2.840.1 1.2.460.035 [id number] [id number] Methodi 00:00:00 00:00:[address] 3.430.2.7 0.2.7.3.698 Ho spita .3.964411 084.8 l .8 2022-09-14 2022-09-14 Travel 1.2.840.1 1.2.645.683 [id number] [id number] Methodi 00:00:00 00:00:[address] 3.430.2.7 0.2.7.3.698 Ho spita .3.270690 084.8 l .8 2022-09-07 2022-09-07 Outpatient GEOVANNY ROLLINS [facility] [id number] SLE 00:00:00 00:00:00 [facility] 2022-08-11 2022-09-02 Inpatient ER JERRELL VILLAFUERTE [facility] Cardiology 20 [id number] SLE 18:56:00 10:40:00 2022-08-25 2022-08-25 Outpatient GEOVANNY ROLLINS [facility] [id number] SLE 00:00:00 00:00:00 [facility] 2022-08-24 2022-08-24 Surgery Brady Juarez [facility] [id number] 07:30:00 18:01:00 R [facility] 2022-08-24 2022-08-24 Anesthesia Teresa Aubrey Gopi [facility] [id number] 07:12:00 14:26:00 Event Basilio Ryan [facility] 2022-08-18 2022-08-18 Surgery Alfredo Olson [facility] [id number] [facility] St 11:50:00 13:56:00 A [facility] 2022-08-11 2022-08-11 Orders [facility] [id number] 00:00:00 00:00:00 Only [facility] 2022-08-11 2022-08-11 Travel [facility] [id number] [facility] St 00:00:00 00:00:00 [facility] Results Test Description Test Time Test Comments Results Result [facility] e Comments XR CHEST 2 VIEWS 2022-10-26 08:50:54 [facility] 1950 Sex: M Chest PA and lateralCOMPARISON STUDY: 08/27/2022History provided: Postop evaluationHeart size within normal limits. Prior sternotomy. Lungs free of activedisease and vascularity normal. Valvular prosthesis in place. MISCELLANEOUS LAB ORDER 2022-09-14 12:47:12 Test Item Value Reference Range Interpretation Comme nts SCAN RESULT (test code = 1103061) JESSICA See scanned report.MISCELLANEOUS LAB [id number] 10:19:53 Test Item Value Reference Range Interpretation Comments SCAN RESULT (test code = 8128260) See attachment TISSUE [id number] 17:02:15Surgical Pathology Report Case: [id number] Authorizing Provider: Brady Juarez MD Collected: 08/24/2022 12:50 PM Ordering Location: [facility] CV Recovery Room 2 Received: 08/24/2022 03:01 PM Pathologist: Joanne Moody MD Specimen: Aortic Valve, AORTIC VALVE LEAFLET A. Aortic valve, replacement: - Valvular tissue with fibrotic changes, myxomatous degeneration and extensive calcification - No histopathologic evidence of inflammation Signing Pathologist Direct Phone Line: [phone] signed by Joanne Moody MD on 09/02/2022 at 5:02 [id number] CAD, NSTEMI, aortic valve stenosis.A. Aortic ValveReceived fresh, labeled with the patient's name, MRN number and "aortic valve leaflet" is a tissue specimen that consists of multiple salcido-yellow leaflets aggregating to 5.0 x 2.0 x 0.5 cm. Focally calcification is noted. No vegetations or fenestrations are grossly seen. [employer] sections are submitted in A1 following decalcification. PANCHO ZimmermanSMicroscopic examination is performed and the salient findings are incorporated into the final diagnosis and comment sections. [facility], Department of Pathology, [address] [place] [address], [facility], [facility] of [facility], [address] [place] [address], [facility], [facility], [address] [facility],[place] [address], SXA-Glucose [id number] 08:15:46 Test Item Value Reference Range Interpretation Comments POC-Glucose Meter (test 112 mg/dL 70-110 H : TE STED AT [facility] code = 1538) [address] [facility], 770 30: Group Work Program Director/Techni maikol ID = [id number] for Faustino Gan ie Lab Interpretation (test Abnormal code = 88683-2) [facility] [id number] 08:15:46 Test Item Value Reference Range Interpretation Comments POC-GLUCOSE METER 112 mg/dL 70-110 H : TESTED A T [facility] 6720 (BEAKER) (test code [facility], = 1538) 24518: Group Work Program Director/Techni maikol ID = [id number] for Laura Sahu HEPATIC FUNCTION [id number] 06:07:13 Test Item Value Reference Range Interpretation [...] (test code = 51 U/L 6-55 347) Group Work Program Director ID - [id number] 06:07:12 Test Item Value Reference Range Interpretation Comments MAGNESIUM (BEAKER) (test code = 2.0 mg/dL 1.6-2.6 627) Group Work Program Director ID - DBBASIC METABOLIC [id number] 06:07:11 Test Item Value Reference Range Interpretation [...] not appl icable for dialysis patien ts Group Work Program Director ID - DBCBC (HEMOGRAM ONLY)2022-09-02 05:34:18 [...] 0-0 (BEAKER) (test code = 413) POCT-GLUCOSE [id number] 21:21:00 Test Item Value Reference Range Interpretation Comments POC-GLUCOSE METER 150 mg/dL 70-110 H : TESTED A T [facility] 6720 (BEAKER) (test code = [facility], [facility]) 66980: Group Work Program Director/Techni maikol ID = [id number] for FOREST BERMAN POCT-GLUCOSE [id number] 17:19:25 Test Item Value Reference Range Interpretation Comments POC-GLUCOSE METER 119 mg/dL 70-110 H : TESTED A T [facility] 6720 (BEAKER) (test code = [facility], [facility]) 64525: Group Work Program Director/Techni maikol ID = [id number] for PETTY HN, ADI POCT-GLUCOSE [id number] 12:47:58 Test Item Value Reference Range Interpretation Comments POC-GLUCOSE METER 147 mg/dL 70-110 H : TESTED A T [facility] 6720 (BEAKER) (test code = [facility], [facility]8) 48266: Group Work Program Director/Techni maikol ID = [id number] for PETTY HN, ADI POCT-GLUCOSE [id number] 07:23:02 Test Item Value Reference Range Interpretation Comments POC-GLUCOSE METER 109 mg/dL 70-110 : TESTED A T [facility] 6720 (BEAKER) (test code = [facility], [facility]) 27105: Group Work Program Director/Techni maikol ID = [id number] for PETTY HN, ADI [id number] 05:52:46 Test Item Value Reference Range Interpretation Comments MAGNESIUM (BEAKER) (test code = 1.8 mg/dL 1.6-2.6 627) Group Work Program Director ID - DBHEPATIC FUNCTION [id number] 05:52:46 Test Item Value Reference Range Interpretation [...] code = 71 U/L 6-55 H 347) Group Work Program Director ID - DBBASIC METABOLIC [id number] 05:52:45 Test Item Value Reference Range Interpretation [...] 30-44 G4 Severl y decreased 15-29 G5 Kidne y failure <15Reported eGF R is based on the CKD-EPI 2020 equation that d oes not use a race coefficientEsti mated GFR is not as accur ate as Creatinine Jessica phil in predicting glom erular filtration rate . Estimated GFR is not appl icable for dialysis patien ts Group Work Program Director ID - DBCBC (HEMOGRAM ONLY)2022-09-01 05:36:57 [...] 0-0 (BEAKER) (test code = 413) POCT-GLUCOSE [id number] 17:32:06 Test Item Value Reference Range Interpretation Comments POC-GLUCOSE METER 151 mg/dL 70-110 H : TESTED A T [facility] 6720 (BEAKER) (test code = [place], 1538) [address]: Group Work Program Director/Techni maikol ID = [id number] for ADI CHACON HEPATIC FUNCTION [id number] 13:47:34 Test Item Value Reference Range Interpretation [...] code = 113 U/L 6-55 H 347) Group Work Program Director ID - [id number] 13:47:33 Test Item Value Reference Range Interpretation Comments MAGNESIUM (BEAKER) (test code = 1.9 mg/dL 1.6-2.6 627) Group Work Program Director ID - JSPOCT-GLUCOSE [id number] 12:42:11 Test Item Value Reference Range Interpretation Comments POC-GLUCOSE METER 136 mg/dL 70-110 H : TESTED A T [facility] 6720 (BEAKER) (test code = [facility], 1538) 66499: Group Work Program Director/Techni maikol ID = [id number] for ADI CHACON POCT-GLUCOSE [id number] 07:29:38 Test Item Value Reference Range Interpretation Comments POC-GLUCOSE METER 104 mg/dL 70-110 : TESTED A T [facility] 6720 (BEAKER) (test code = [facility] [employer], 1538) 02223: Group Work Program Director/Techni maikol ID = [id number] for ADI CHACON BASIC METABOLIC [id number] 07:07:41 Test Item Value Reference Range Interpretation [...] eGFR (test code = mL/min/1.73 values Stage D escription 1092) sq m Result G1 Effie l [...] not appl icable for dialysis patien ts Group Work Program Director ID - RMCBC (HEMOGRAM ONLY)2022-08-31 05:47:14 [...] 0-0 (BEAKER) (test code = 413) POCT-GLUCOSE [id number] 17:24:42 Test Item Value Reference Range Interpretation Comments POC-GLUCOSE METER 133 mg/dL 70-110 H : TESTED A T [facility] 6720 (BEAKER) (test code = [place], 1538) 236[address]: Group Work Program Director/Techni maikol ID = [id number] for Ga rcia, POCT-GLUCOSE [id number] 12:23:57 Test Item Value Reference Range Interpretation Comments POC-GLUCOSE METER 197 mg/dL 70-110 H : TESTED A T [facility] 6720 (BEAKER) (test code = [facility], 1538) 18600: Group Work Program Director/Techni maikol ID = [id number] for Co rtez, [place] POCT-GLUCOSE [id number] 08:17:56 Test Item Value Reference Range Interpretation Comments POC-GLUCOSE METER 110 mg/dL 70-110 : TESTED A T [facility] 6720 (BEAKER) (test code = [facility], 1538) 69364: Group Work Program Director/Techni miakol ID = [id number] for Co rtez, [place] POCT-GLUCOSE [id number] 06:54:21 Test Item Value Reference Range Interpretation Comments POC-GLUCOSE METER 163 mg/dL 70-110 H : TESTED A T [facility] 6720 (BEAKER) (test code = [facility], 1538) 73804: Group Work Program Director/Techni maikol ID = [id number] for PI TTS VITALY HEPATIC FUNCTION [id number] 06:47:45 Test Item Value Reference Range Interpretation [...] code = 138 U/L 6-55 H 347) Group Work Program Director ID - GENI GBASIC METABOLIC [id number] 06:47:44 Test Item Value Reference Range Interpretation [...] not appl icable for dialysis patien ts Group Work Program Director ID - GENI [id number] 06:47:44 Test Item Value Reference Range Interpretation Comments MAGNESIUM (BEAKER) (test code = 1.9 mg/dL 1.6-2.6 627) Group Work Program Director ID - GENI GCBC (HEMOGRAM ONLY)2022-08-30 [...] CELLS (BEAKER) (test code = 413) POCT-GLUCOSE [id number] 19:58:44 Test Item Value Reference Range Interpretation Comments POC-GLUCOSE METER 159 mg/dL 70-110 H : TESTED A T [facility] 6720 (BEAKER) (test code = [facility], 1538) 76025: Group Work Program Director/Techni maikol ID = [id number] for PI TTS, VITALY POCT-GLUCOSE [id number] 17:28:51 Test Item Value Reference Range Interpretation Comments POC-GLUCOSE METER 116 mg/dL 70-110 H : TESTED A T [facility] 6720 (BEAKER) (test code = [facility], 1538) 62042: Group Work Program Director/Techni maikol ID = [id number] for Co rtez, Jeannie POCT-GLUCOSE [id number] 12:10:59 Test Item Value Reference Range Interpretation Comments POC-GLUCOSE METER 171 mg/dL 70-110 H : TESTED A T [facility] 6720 (BEAKER) (test code = [facility], 1538) 79429: Group Work Program Director/Techni maikol ID = [id number] for Co rtez, [place] POCT-GLUCOSE [id number] 07:25:17 Test Item Value Reference Range Interpretation Comments POC-GLUCOSE METER 148 mg/dL 70-110 H : TESTED A T [facility] 6720 (BEAKER) (test code = [facility], 1538) 15505: Group Work Program Director/Techni maikol ID = [id number] for Co rtez, [place] HEPATIC FUNCTION [id number] 06:46:57 Test Item Value Reference Range Interpretation [...] code = 184 U/L 6-55 H 347) Group Work Program Director ID - [id number] 06:46:56 Test Item Value Reference Range Interpretation Comments MAGNESIUM (BEAKER) (test code = 2.0 mg/dL 1.6-2.6 627) Group Work Program Director ID - MARCOBASIC METABOLIC [id number] 06:46:55 Test Item Value Reference Range Interpretation [...] not appl icable for dialysis patien ts Group Work Program Director ID - MARCOCBC (HEMOGRAM ONLY)2022-08-29 06:29:10 [...] H (BEAKER) (test code = 413) POCT-GLUCOSE [id number] 17:34:37 Test Item Value Reference Range Interpretation Comments POC-GLUCOSE METER 145 mg/dL 70-110 H : TESTED A T [facility] 6720 (BEAKER) (test code = [place], 1538) 78930: Group Work Program Director/Techni maikol ID = [id number] for Yolanda Marx POCT-GLUCOSE [id number] 17:07:24 Test Item Value Reference Range Interpretation Comments POC-GLUCOSE METER 169 mg/dL 70-110 H : TESTED A T [facility] 6720 (BEAKER) (test code = BHAVNA Gutiérrez [place], 1538) 73246: Group Work Program Director/Techni maikol ID = [id number] for Yolanda Marx POCT-GLUCOSE [id number] 17:07:17 Test Item Value Reference Range Interpretation Comments POC-GLUCOSE METER 116 mg/dL 70-110 H : TESTED A T [facility] 6720 (BEAKER) (test code = BHAVNA Gutiérrez [place], 1538) 64479: Group Work Program Director/Techni maikol ID = [id number] for Yolanda Marx 2D Echo W/Doppler(CW/PW/Color)2022-08-28 16:13:58Ejection FractionSLE ECHO HEARTLAB MKCKESSON [facility] NATRIURETIC FACTOR (BNP)2022-08-28 14:35:14 Test Item Value Reference Range Interpretation Comments B-TYPE NATRIURETIC PEPTIDE (BEAKER) 909 pg/mL 0-100 H (test code = 700) Group Work Program Director ID - BSLACTIC ACID, [id number] 14:04:07 Test Item Value Reference Range Interpretation Comments LACTATE BLOOD VENOUS (2) (BEAKER) 2.68 mmol/L 0.50-2.00 H (test code = 2872) Group Work Program Director ID - MARCOHEPATIC FUNCTION [id number] 08:21:33 Test Item Value Reference Range Interpretation [...] code = 137 U/L 6-55 H 347) Group Work Program Director ID - BSBASIC METABOLIC [id number] 08:21:32 Test Item Value Reference Range Interpretation [...] not appl icable for dialysis patien ts Group Work Program Director ID - [id number] 08:21:32 Test Item Value Reference Range Interpretation Comments MAGNESIUM (BEAKER) (test code = 2.0 mg/dL 1.6-2.6 627) Group Work Program Director ID - BSCBC (HEMOGRAM ONLY)2022-08-28 05:47:54 [...] = 413) RAD, CHEST, 1 VIEW, NON [id number] 22:52:00Reason for exam:->chest tube removalShould this be performed at the bedside?->Yes [facility] 1950 Sex: MFINAL [...] Aubrey HandyMDReport Verified Date/Time: 08/27/2022 22:52:45 -GLUCOSE [id number] 21:10:23 Test Item Value Reference Range Interpretation Comments POC-GLUCOSE METER 145 mg/dL 70-110 H : TESTED A T [facility] 6720 (BEAKER) (test code = [place], 1538) 10559: Group Work Program Director/Techni maikol ID = [id number] for GAEL ALVA BASIC METABOLIC [id number] 17:49:06 Test Item Value Reference Range Interpretation [...] (test code = 697) EGFR (BEAKER) 56 Interpretatio n of eGFR (test code = [...] not appl icable for dialysis patien ts Group Work Program Director ID - BSOperator ID - BSPOCT-GLUCOSE [id number] 17:48:28 Test Item Value Reference Range Interpretation Comments POC-GLUCOSE METER 146 mg/dL 70-110 H : TESTED A T [facility] 6720 (BEAKER) (test code = BHAVNA Gutiérrez [facility], 1538) 57801: Group Work Program Director/Techni maikol ID = [id number] for Co rtez, Jeannie POCT-GLUCOSE [id number] 12:51:28 Test Item Value Reference Range Interpretation Comments POC-GLUCOSE METER 201 mg/dL 70-110 H : TESTED A T [facility] 6720 (NEO) (test code = BHAVNA Gutiérrez [facility], 1538) 84813: Group Work Program Director/Techni maikol ID = [id number] for Co rtez, [place] POCT-GLUCOSE [id number] 07:50:17 Test Item Value Reference Range Interpretation Comments POC-GLUCOSE METER 147 mg/dL 70-110 H : Notified RN/MD: (NEO) (test code = TESTED AT [facility] 6720 1538) [facility] [address]: Group Work Program Director/Techni maikol ID = [id number] for Samantha Cortes RAD, CHEST, 1 VIEW, NON [id number] 07:18:00Reason for exam:->Post OpShould this be performed at the bedside?->Yes [facility] : 1950 Sex: MFINAL REPORT RAD, CHEST, 1 VIEW, NON DEPT INDICATION: Post Op COMPARISON: Prior day's exam FINDINGS: Portable frontal view of the chest. IMPRESSION: Support Lines: [place]-Robert catheter removed with remaining sheath. Otherwise stable support apparatus. Lungs and pleura: Unchanged airspace and pleural opacities, greater on the left. No pneumothorax.Heart and mediastinum: Stable contours. Additional findings: None. Signed: Adelfo Sosaeport Verified Date/Time: 08/27/2022 07:18:19 HEPATIC FUNCTION [id number] 03:37:31 Test Item Value Reference Range Interpretation [...] code = 72 U/L 6-55 H 347) Group Work Program Director ID - [id number] 03:37:30 Test Item Value Reference Range Interpretation Comments MAGNESIUM (BEAKER) (test code = 2.1 mg/dL 1.6-2.6 627) Group Work Program Director ID - [id number] 03:37:30 Test Item Value Reference Range Interpretation Comments PHOSPHORUS (BEAKER) (test code = 3.0 mg/dL 2.3-4.7 604) Group Work Program Director ID - MMBASIC METABOLIC [id number] 03:37:29 Test Item Value Reference Range Interpretation [...] not appl icable for dialysis patien ts Group Work Program Director ID - MMCBC W/PLT COUNT & AUTO [id number] 03:10:41 Test Item Value Reference Range Interpretation [...] 0.00-1.00 PERCENT (BEAKER) (test code = 2801) PT/[id number] 03:10:40 Test Item Value Reference Range Interpretation [...] is 2.5-3.5 for patients with mechanical heart valves.[id number] 03:10:04 Test Item Value Reference Range Interpretation Comments FIBRINOGEN LEVEL (BEAKER) (test 572 mg/dl 225-434 H code = 658) Lactic Acid, [id number] 03:09:22 Test Item Value Reference Range Interpretation Comments Lactate, Art (test code = 1.7 mmol/L 0.5-2.0 2874) SWEETIE (test code = SWEETIE) Group Work Program Director ID - BS Lab Interpretation (test Normal code = 12369-0) [facility], [id number] 03:09:22 Test Item Value Reference Range Interpretation Comments LACTATE BLOOD ARTERIAL (2) 1.7 mmol/L 0.5-2.0 (BEAKER) (test code = 2874) Group Work Program Director ID - BSCALCIUM, [id number] 02:50:58 Test Item Value Reference Range Interpretation Comments CALCIUM IONIZED (BEAKER) (test 1.07 mmol/L 1.12-1.27 L code = 698) PH, BLOOD (BEAKER) (test code = 7.45 1810) POCT-GLUCOSE [id number] 00:17:05 Test Item Value Reference Range Interpretation Comments POC-GLUCOSE METER 142 mg/dL 70-110 H : TESTED A T [facility] 6720 (BEAKER) (test code = ALEXIMARJ Gutiérrez [facility], 1538) 83467: Group Work Program Director/Techni maikol ID = [id number] for DO MCNEILAugust Prepare Leuko-Red [id number] 23:55:00 Test Item Value Reference Range Interpretation Comments CROSSMATCH (test code = 2264) COMPATIBLE Unit ABO (test code = O Pos 8505641) UNIT NUMBER (test code = [id number] 934-0) Status (test code = 9321522) TX_TIMEINCHART Blood Bank Product (test code RED BLOOD CELLS = 2263) PRODUCT CODE (test code = M1528O24 933-2) [id number] 19:03:30 Test Item Value Reference Range Interpretation Comments POC-GLUCOSE METER 141 mg/dL 70-110 H : Notified RN/MD: (BEAKER) (test code = TESTED AT [facility] 6720 1538) [facility] [address]: Group Work Program Director/Techni maikol ID = [id number] for Belkys Samantha hutson [id number] 17:43:19 Test Item Value Reference Range Interpretation Comments PHOSPHORUS (BEAKER) (test code = 3.1 mg/dL 2.3-4.7 604) Group Work Program Director ID - BSBASIC METABOLIC [id number] 17:43:18 Test Item Value Reference Range Interpretation [...] 30-44 G4 Severl y decreased 15-29 G5 Kidne y failure <15Reported eGF R is based on the CKD-EPI 2020 equation that d oes not use a race coefficientEsti mated GFR is not as accur ate as Creatinine Jessica phil in predicting glom erular filtration rate . Estimated GFR is not appl icable for dialysis patien ts Group Work Program Director ID - [id number] 17:43:18 Test Item Value Reference Range Interpretation Comments MAGNESIUM (BEAKER) (test code = 2.2 mg/dL 1.6-2.6 627) Group Work Program Director ID - [id number] (HEMOGRAM ONLY)2022 17:30:14 [...] 0-0 (BEAKER) (test code = 413) CALCIUM, [id number] 17:22:49 Test Item Value Reference Range Interpretation Comments CALCIUM IONIZED (BEAKER) (test 1.11 mmol/L 1.12-1.27 L code = 698) PH, BLOOD (BEAKER) (test code = 7.44 1810) POCT-GLUCOSE [id number] 12:11:34 Test Item Value Reference Range Interpretation Comments POC-GLUCOSE METER 155 mg/dL 70-110 H : Notified RN/MD: (NEO) (test code = TESTED AT [facility] 5967 8422) [facility], [address]: Group Work Program Director/Techni maikol ID = [id number] for Samantha Cortes RAD, CHEST, 1 VIEW, NON [id number] 10:54:00Reason for exam:->Post OpShould this be performed at the bedside?->Yes [facility] 1950 Sex: MFINAL [...] MDReport Verified Date/Time: 2022 10:54:59 LACTIC ACID, [id number] 09:19:53 Test Item Value Reference Range Interpretation Comments LACTATE BLOOD ARTERIAL (2) 1.1 mmol/L 0.5-2.0 (BEAKER) (test code = 2874) Group Work Program Director ID - JUANA WOXYGEN SATURATION, [id number] 09:11:30 Test Item Value Reference Range Interpretation Comments O2 SATURATION (MEASURED) (BEAKER) 66.1 % (test code = 1455) Manual [id number] 07:09:31 Test Item Value Reference Range Interpretation [...] = 3438) SWEETIE (test code = SWEETIE) Group Work Program Director ID - [id number] ID - [id number] comments: Slide comments: Lab Interpretation Abnormal (test code = 91263-4) [facility](CELLAVISION MANUAL DIFF)2022 07:09:31 Test Item Value [...] CONCENTRATION Decreased (CELLAVISION)(BEAKER) (test code = 3438) Group Work Program Director ID - [id number] ID - [email or web address] comments: Slide comments:CBC W/PLT COUNT & AUTO [id number] 07:09:26 Test Item Value Reference Range Interpretation [...] WBC 0-0 (test code = 413) POCT-GLUCOSE [id number] 06:11:43 Test Item Value Reference Range Interpretation Comments POC-GLUCOSE METER 143 mg/dL 70-110 H : TESTED A T [facility] 6720 (BEAKER) (test code = [place]IMARJ [place], 1538) [address]: Group Work Program Director/Techni maikol ID = [id number] for Karishma Lazar OXYGEN SATURATION, [id number] 06:09:18 Test Item Value Reference Range Interpretation Comments O2 SATURATION (MEASURED) (BEAKER) 80.9 % (test code = 1455) [id number] 03:27:36 Test Item Value Reference Range Interpretation [...] is 2.5-3.5 for patients with mechanical heart valves.[id number] 03:26:55 Test Item Value Reference Range Interpretation Comments FIBRINOGEN LEVEL (BEAKER) (test 479 mg/dl 225-434 H code = 658) [id number] 03:21:57 Test Item Value Reference Range Interpretation Comments PHOSPHORUS (BEAKER) (test code = 4.0 mg/dL 2.3-4.7 604) Group Work Program Director ID - ADMINHEPATIC FUNCTION [id number] 03:21:57 Test Item Value Reference Range Interpretation [...] (test code = 29 U/L 6-55 347) Group Work Program Director ID - ADMINBASIC METABOLIC [id number] 03:21:56 Test Item Value Reference Range Interpretation [...] 30-44 G4 Severl y decreased 15-29 G5 Kidne y failure <15Reported eGF R is based on the CKD-EPI 2021 equation that d oes not use a race coefficientEsti mated GFR is not as accur ate as Creatinine Jessica phil in predicting glom erular filtration rate . Estimated GFR is not appl icable for dialysis patien ts Group Work Program Director ID - [id number] 03:21:56 Test Item Value Reference Range Interpretation Comments MAGNESIUM (BEAKER) (test code = 2.1 mg/dL 1.6-2.6 627) Group Work Program Director ID - ADMINLACTIC ACID, [id number] 03:10:07 Test Item Value Reference Range Interpretation Comments LACTATE BLOOD ARTERIAL (2) 1.1 mmol/L 0.5-2.0 (BEAKER) (test code = 2874) Group Work Program Director ID - JUANA ARREDONDOXYGEN SATURATION, [id number] 03:02:28 Test Item Value Reference Range Interpretation Comments O2 SATURATION (MEASURED) (BEAKER) 74.4 % (test code = 1455) Blood gas, [id number] 03:01:49 Test Item Value Reference Range Interpretation [...] 32 Lab Interpretation Abnormal (test code = 98681-5) [facility] [id number] 03:01:49 Test Item Value Reference Range Interpretation [...] (BEAKER) (test code = 1819) 32.0 CALCIUM, [id number] 03:00:31 Test Item Value Reference Range Interpretation Comments CALCIUM IONIZED (BEAKER) (test 1.15 mmol/L 1.12-1.27 code = 698) PH, BLOOD (BEAKER) (test code = 7.43 1810) Prepare [id number] 23:54:00 Test Item Value Reference Range Interpretation Comments CROSSMATCH (test code = COMPATIBLE 5294) Unit ABO (test code = O Pos 3592277) UNIT NUMBER (test code = [id number] 934-0) Status (test code = RETURNED FROM ISSUE 4339646) Blood Bank Product (test RED BLOOD CELLS code = 2263) PRODUCT CODE (test code = Q1552Q77 933-2) [facility] [id number] 23:43:32 Test Item Value Reference Range Interpretation Comments POC-GLUCOSE METER 141 mg/dL 70-110 H : TESTED A T [facility] 6720 (BEAKER) (test code = [place], 1538) [address]: Group Work Program Director/Techni maikol ID = [id number] for Karishma Lazar CALCIUM, [id number] 23:42:33 Test Item Value Reference Range Interpretation Comments CALCIUM IONIZED (BEAKER) (test 1.17 mmol/L 1.12-1.27 code = 698) PH, BLOOD (BEAKER) (test code = 7.37 1810) OXYGEN SATURATION, [id number] 23:41:54 Test Item Value Reference Range Interpretation Comments O2 SATURATION (MEASURED) (BEAKER) 72.8 % (test code = 1455) CALCIUM, [id number] 20:49:52 Test Item Value Reference Range Interpretation Comments CALCIUM IONIZED (BEAKER) (test 1.09 mmol/L 1.12-1.27 L code = 698) PH, BLOOD (BEAKER) (test code = 7.32 1810) HGB/HCT (H&H)-Stat [id number] 20:49:51 Test Item Value Reference Range Interpretation Comments Hemoglobin (test code = 9.3 See_Comment L [Au tomated message] 718-7) The system [employer] generated this result transmitted ref erence range: 13.0 - 1 6.8 GM/DL. The refe rence range was not u sed to interpret this result as normal/abnor mal. Hematocrit (test code = 27.0 % 40.0-50.0 L 4544-3) Lab Interpretation (test Abnormal code = 30130-7) [facility], [id number] 20:49:51 Test Item Value Reference Range Interpretation [...] = 1819) 32.0 HGB/HCT (H&H) - STAT [id number] 20:49:51 Test Item Value Reference Range Interpretation Comments HEMOGLOBIN (BEAKER) (test code = 9.3 GM/DL 13.0-16.8 L 410) HEMATOCRIT (BEAKER) (test code = 27.0 % 40.0-50.0 L 411) Sodium Na-Stat [id number] 20:43:04 Test Item Value Reference Range Interpretation Comments Sodium (test code = 2951-2) 136 meq/L 136-145 Lab Interpretation (test code = Normal 99197-8) [facility] [id number] 20:43:04 Test Item Value Reference Range Interpretation Comments Potassium (test code = 2823-3) 4.2 meq/L 3.6-5.5 Lab Interpretation (test code = Normal 31989-2) [facility] [id number] 20:43:04 Test Item Value Reference Range Interpretation Comments SODIUM (BEAKER) (test code = 381) 136 meq/L 136-145 POTASSIUM-STAT [id number] 20:43:04 Test Item Value Reference Range Interpretation Comments POTASSIUM (BEAKER) (test code = 4.2 meq/L 3.6-5.5 379) Glucose-Stat [id number] 20:43:03 Test Item Value Reference Range Interpretation Comments Glucose (test code = 2345-7) 130 mg/dL 70-110 H Lab Interpretation (test code = Abnormal 04903-6) [facility] [id number] 20:43:03 Test Item Value Reference Range Interpretation Comments GLUCOSE RANDOM (BEAKER) (test code 130 mg/dL 70-110 H = 652) POCT-GLUCOSE [id number] 18:28:36 Test Item Value Reference Range Interpretation Comments POC-GLUCOSE METER 99 mg/dL 70-110 : TESTED A T [facility] 6720 (BEAKER) (test code = [place], 1538) [address]: Group Work Program Director/Techni maikol ID = [id number] for ATUL WALTER [id number] 16:54:08 Test Item Value Reference Range Interpretation Comments MAGNESIUM (BEAKER) (test code = 2.2 mg/dL 1.6-2.6 627) Group Work Program Director ID - [id number] 16:54:08 Test Item Value Reference Range Interpretation Comments PHOSPHORUS (BEAKER) (test code = 4.1 mg/dL 2.3-4.7 604) Group Work Program Director ID - BSBASIC METABOLIC [id number] 16:54:07 Test Item Value Reference Range Interpretation [...] not appl icable for dialysis patien ts Group Work Program Director ID - BSLACTIC ACID, [id number] 16:48:41 Test Item Value Reference Range Interpretation Comments LACTATE BLOOD ARTERIAL (2) 1.5 mmol/L 0.5-2.0 (BEAKER) (test code = 2874) Group Work Program Director ID - [id number] 16:42:20 Test Item Value Reference Range Interpretation Comments ACTIVATED CLOTTING TIME 444 sec : 74 -137 seconds, (BEAKER) (test code = Baseli ne: TESTED AT 441) [address], [address]: Group Work Program Director/Techni maikol ID = [id number] for WILLIAM POTTER [id number] 16:42:20 Test Item Value Reference Range Interpretation Comments ACTIVATED CLOTTING TIME 498 sec : 74 -137 seconds, (BEAKER) (test code = Baseli ne: TESTED AT 441) [facility] 6720 [facility], [address]: Group Work Program Director/Techni maikol ID = [id number] for WILLIAM POTTER [id number] 16:42:19 Test Item Value Reference Range Interpretation Comments ACTIVATED CLOTTING TIME 492 sec : 74 -137 seconds, (BEAKER) (test code = Baseli ne: TESTED AT 441) [address], [address]: Group Work Program Director/Techni maikol ID = [id number] for WILLIAM POTTER POC ACTIVATED CLOTTING [id number] 16:41:45 Test Item Value Reference Range Interpretation Comments Activated Clotting Time 113 sec : 74 -137 seconds, (test code = 3184-9) Baselin e: TESTED AT [address], [address]: Group Work Program Director/Techni maikol ID = [id number] for WILLIAM POTTER [id number] 16:41:45 Test Item Value Reference Range Interpretation Comments ACTIVATED CLOTTING TIME 113 sec : 74 -137 seconds, (BEAKER) (test code = Baseli ne: TESTED AT 441) [address], [address]: Group Work Program Director/Techni maikol ID = [id number] for WILLIAM POTTER [id number] 16:41:44 Test Item Value Reference Range Interpretation Comments ACTIVATED CLOTTING TIME 438 sec : 74 -137 seconds, (BEAKER) (test code = Baseli ne: TESTED AT 441) [address], [address]: Group Work Program Director/Techni maikol ID = [id number] for WILLIAM POTTER [id number] 16:41:44 Test Item Value Reference Range Interpretation Comments ACTIVATED CLOTTING TIME 402 sec : 74 -137 seconds, (BEAKER) (test code = Baseli ne: TESTED AT 441) [address], [address]: Group Work Program Director/Techni maikol ID = [id number] for WILLIAM POTTER [id number] 16:41:43 Test Item Value Reference Range Interpretation Comments ACTIVATED CLOTTING TIME 137 sec : 74 -137 seconds, (BEAKER) (test code = Baseli ne: TESTED AT 441) [address], [address]: Group Work Program Director/Techni maikol ID = [id number] for WILLIAM POTTER CBC (HEMOGRAM ONLY)2022-08-25 16:36:09 [...] 0-0 (BEAKER) (test code = 413) CALCIUM, [id number] 16:07:02 Test Item Value Reference Range Interpretation Comments CALCIUM IONIZED (BEAKER) (test 1.10 mmol/L 1.12-1.27 L code = 698) PH, BLOOD (BEAKER) (test code = 7.44 1810) POCT-GLUCOSE [id number] 16:04:46 Test Item Value Reference Range Interpretation Comments POC-GLUCOSE METER 115 mg/dL 70-110 H : TESTED A T [facility] 6720 (BEAKER) (test code = BHAVNA [place], 1538) [address]: Group Work Program Director/Techni maikol ID = [id number] for Reynaldo-Yan, [place] avier LACTIC ACID, [id number] 13:00:33 Test Item Value Reference Range Interpretation Comments LACTATE BLOOD ARTERIAL (2) 2.2 mmol/L 0.5-2.0 H (BEAKER) (test code = 2874) Group Work Program Director ID - MARCOPOCT-GLUCOSE [id number] 12:25:36 Test Item Value Reference Range Interpretation Comments POC-GLUCOSE METER 137 mg/dL 70-110 H : TESTED A T [facility] 6720 (BEAKER) (test code = BH[place], 1538) [address]: Group Work Program Director/Techni maikol ID = [id number] for [place] Soria avier BASIC METABOLIC [id number] 09:44:09 Test Item Value Reference Range Interpretation [...] not appl icable for dialysis patien ts Group Work Program Director ID - MARCOLACTIC ACID, [id number] 09:41:56 Test Item Value Reference Range Interpretation Comments LACTATE BLOOD ARTERIAL (2) 3.2 mmol/L 0.5-2.0 H (BEAKER) (test code = 2874) Group Work Program Director ID - MARCOBLOOD GAS, [id number] 09:03:19 Test Item Value Reference Range Interpretation [...] (BEAKER) (test code = 1819) 100.0 CALCIUM, [id number] 09:03:17 Test Item Value Reference Range Interpretation Comments CALCIUM IONIZED (BEAKER) (test 1.17 mmol/L 1.12-1.27 code = 698) PH, BLOOD (BEAKER) (test code = 7.43 1810) OXYGEN SATURATION, [id number] 09:03:15 Test Item Value Reference Range Interpretation Comments O2 SATURATION (MEASURED) (BEAKER) 61.8 % (test code = 1455) POCT-GLUCOSE [id number] 08:59:05 Test Item Value Reference Range Interpretation Comments POC-GLUCOSE METER 162 mg/dL 70-110 H : TESTED A T [facility] 6720 (BEAKER) (test code = [facility], 1538) [address]: Group Work Program Director/Techni maikol ID = [id number] for Hover-Yan, X avier POCT-GLUCOSE [id number] 07:38:28 Test Item Value Reference Range Interpretation Comments POC-GLUCOSE METER 175 mg/dL 70-110 H : TESTED A T [facility] 6720 (BEAKER) (test code = [facility], 153) [address]: Group Work Program Director/Techni maikol ID = [id number] for Hover-Yan, X avier RAD, CHEST, 1 VIEW, NON [id number] 07:17:00Reason for exam:->Post OpShould this be performed at the bedside?->Yes [facility] 1950 Sex: MFINAL REPORT RAD, CHEST, 1 VIEW, NON DEPT INDICATION: Post Op COMPARISON: Prior day's exam FINDINGS: Portable frontal view of the chest. IMPRESSION: Support Lines: ET tube and enterictube removed. [place]-Robert catheter tip overlies the pulmonary outflow tract. Otherwise, stable supportapparatus. Lungs and pleura: No significant change in left greater than right airspace and pleural opacities. No pneumothorax.Heart and mediastinum: Stable contours. Additional findings: None. Signed: Adelfo Sosa MDReport Verified Date/Time: 08/25/2022 07:17:45 POCT-GLUCOSE [id number] 06:39:18 Test Item Value Reference Range Interpretation Comments POC-GLUCOSE METER 177 mg/dL 70-110 H : TESTED A T [facility] 6720 (BEAKER) (test code = [facility], 1538) [address]: Group Work Program Director/Techni maikol ID = [id number] for Marina do (contract), [facility] POCT-GLUCOSE [id number] 03:31:00 Test Item Value Reference Range Interpretation Comments POC-GLUCOSE METER 160 mg/dL 70-110 H : TESTED A T [facility] 6720 (BEAKER) (test code = [facility], 1538) [address]: Group Work Program Director/Techni maikol ID = [id number] for Marina do (contract), [facility] HEPATIC FUNCTION [id number] 03:00:46 Test Item Value Reference Range Interpretation [...] (test code = 26 U/L 6-55 347) Group Work Program Director ID - [id number] 03:00:45 Test Item Value Reference Range Interpretation Comments MAGNESIUM (BEAKER) (test code = 2.3 mg/dL 1.6-2.6 627) Group Work Program Director ID - [id number] 03:00:45 Test Item Value Reference Range Interpretation Comments PHOSPHORUS (BEAKER) (test code = 4.3 mg/dL 2.3-4.7 604) Group Work Program Director ID - MARCOBASIC METABOLIC [id number] 03:00:44 Test Item Value Reference Range Interpretation [...] not appl icable for dialysis patien ts Group Work Program Director ID - MARCOOXYGEN SATURATION, [id number] 02:50:03 Test Item Value Reference Range Interpretation Comments O2 SATURATION (MEASURED) (BEAKER) 74.2 % (test code = 1455) LACTIC ACID, [id number] 02:49:22 Test Item Value Reference Range Interpretation Comments LACTATE BLOOD ARTERIAL (2) 2.2 mmol/L 0.5-2.0 H (BEAKER) (test code = 2874) Group Work Program Director ID - [id number] 02:47:18 Test Item Value Reference Range Interpretation [...] for patients with mechanical heart valves.BLOOD GAS, [id number] 02:47:06 Test Item Value Reference Range Interpretation [...] TEMPERATURE (BEAKER) 37.0 (test code = 1818) [id number] 02:47:01 Test Item Value Reference Range Interpretation Comments FIBRINOGEN LEVEL (BEAKER) (test 306 mg/dl 225-434 code = 658) CALCIUM, [id number] 02:46:38 Test Item Value Reference Range Interpretation Comments CALCIUM IONIZED (BEAKER) (test 1.18 mmol/L 1.12-1.27 code = 698) PH, BLOOD (BEAKER) (test code = 7.46 1810) CBC W/PLT COUNT & AUTO [id number] 02:39:48 Test Item Value Reference Range Interpretation [...] PERCENT (BEAKER) (test code = 2801) POCT-GLUCOSE [id number] 01:27:59 Test Item Value Reference Range Interpretation Comments POC-GLUCOSE METER 167 mg/dL 70-110 H : TESTED A T [facility] 6720 (BEAKER) (test code = [facility], 1538) [address]: Group Work Program Director/Techni maikol ID = [id number] for Sd primitivo (contract), [facility] POCT-GLUCOSE [id number] 00:21:36 Test Item Value Reference Range Interpretation Comments POC-GLUCOSE METER 162 mg/dL 70-110 H : TESTED A T [facility] 6720 (BEAKER) (test code = [facility], 1538) [address]: Group Work Program Director/Techni maikol ID = [id number] for Sd primitivo (contract), [facility] BLOOD GAS, [id number] 23:17:40 Test Item Value Reference Range Interpretation [...] (BEAKER) 37.0 (test code = 1818) POCT-GLUCOSE [id number] 23:16:58 Test Item Value Reference Range Interpretation Comments POC-GLUCOSE METER 164 mg/dL 70-110 H : TESTED A T [facility] 6720 (BEAKER) (test code = BHAVNA Gutiérrez [place], 1538) [address]: Group Work Program Director/Techni maikol ID = [id number] for Marina do (contract), [facility] POCT-GLUCOSE [id number] 22:05:48 Test Item Value Reference Range Interpretation Comments POC-GLUCOSE METER 149 mg/dL 70-110 H : TESTED A T [facility] 6720 (BEAKER) (test code = BHAVNA Gutiérrez [place], 1538) [address]: Group Work Program Director/Techni maikol ID = [id number] for Marina do (contract), [facility] LACTIC ACID, [id number] 21:28:41 Test Item Value Reference Range Interpretation Comments LACTATE BLOOD ARTERIAL (2) 2.9 mmol/L 0.5-2.0 H (BEAKER) (test code = 2874) Group Work Program Director ID - BSHGB/HCT (H&H) - STAT [id number] 21:13:01 Test Item Value Reference Range Interpretation Comments HEMOGLOBIN (BEAKER) (test code = 9.7 GM/DL 13.0-16.8 L 410) HEMATOCRIT (BEAKER) (test code = 29.0 % 40.0-50.0 L 411) BLOOD GAS, [id number] 21:13:00 Test Item Value Reference Range Interpretation [...] (BEAKER) (test code = 1819) 100.0 POTASSIUM-STAT [id number] 21:12:04 Test Item Value Reference Range Interpretation Comments POTASSIUM (BEAKER) (test code = 4.6 meq/L 3.6-5.5 379) GLUCOSE-STAT [id number] 21:12:03 Test Item Value Reference Range Interpretation Comments GLUCOSE RANDOM (BEAKER) (test code 172 mg/dL 70-110 H = 652) SODIUM NA-STAT [id number] 21:12:03 Test Item Value Reference Range Interpretation Comments SODIUM (BEAKER) (test code = 381) 138 meq/L 136-145 LACTIC ACID, [id number] 20:00:51 Test Item Value Reference Range Interpretation Comments LACTATE BLOOD ARTERIAL (2) 3.9 mmol/L 0.5-2.0 H (BEAKER) (test code = 2874) Group Work Program Director ID - BSPOCT-GLUCOSE [id number] 19:59:57 Test Item Value Reference Range Interpretation Comments POC-GLUCOSE METER 132 mg/dL 70-110 H : [facility] (BEAKER) (test code = [place], 1538) [address]: Group Work Program Director/Techni maikol ID = [id number] for Marina primitivodon (contract), [facility] CALCIUM, [id number] 19:49:18 Test Item Value Reference Range Interpretation Comments CALCIUM IONIZED (BEAKER) (test 1.08 mmol/L 1.12-1.27 L code = 698) PH, BLOOD (BEAKER) (test code = 7.43 1810) HGB/HCT (H&H) - STAT [id number] 19:49:06 Test Item Value Reference Range Interpretation Comments HEMOGLOBIN (BEAKER) (test code = 10.1 GM/DL 13.0-16.8 L 410) HEMATOCRIT (BEAKER) (test code = 30.0 % 40.0-50.0 L 411) BLOOD GAS, [id number] 19:49:05 Test Item Value Reference Range Interpretation [...] (BEAKER) (test code = 1819) 21.0 POTASSIUM-STAT [id number] 19:48:11 Test Item Value Reference Range Interpretation Comments POTASSIUM (BEAKER) (test code = 4.4 meq/L 3.6-5.5 379) GLUCOSE-STAT [id number] 19:48:10 Test Item Value Reference Range Interpretation Comments GLUCOSE RANDOM (BEAKER) (test code 163 mg/dL 70-110 H = 652) SODIUM NA-STAT [id number] 19:48:10 Test Item Value Reference Range Interpretation Comments SODIUM (BEAKER) (test code = 381) 138 meq/L 136-145 LACTIC ACID, [id number] 17:37:08 Test Item Value Reference Range Interpretation Comments LACTATE BLOOD ARTERIAL (2) 4.2 mmol/L 0.5-2.0 HH (BEAKER) (test code = 2874) Group Work Program Director ID - BSHGB/HCT (H&H) - STAT [id number] 17:21:22 Test Item Value Reference Range Interpretation Comments HEMOGLOBIN (BEAKER) (test code = 9.7 GM/DL 13.0-16.8 L 410) HEMATOCRIT (BEAKER) (test code = 29.0 % 40.0-50.0 L 411) BLOOD GAS, [id number] 17:21:21 Test Item Value Reference Range Interpretation [...] (test code = 1819) 60.0 SODIUM NA-STAT [id number] 17:21:08 Test Item Value Reference Range Interpretation Comments SODIUM (BEAKER) (test code = 381) 137 meq/L 136-145 POTASSIUM-STAT [id number] 17:21:08 Test Item Value Reference Range Interpretation Comments POTASSIUM (BEAKER) (test code = 4.1 meq/L 3.6-5.5 379) GLUCOSE-STAT [id number] 17:21:07 Test Item Value Reference Range Interpretation Comments GLUCOSE RANDOM (BEAKER) (test code 149 mg/dL 70-110 H = 652) RAD, CHEST, 1 VIEW, NON [id number] 16:10:00Reason for exam:->post opShould this be performed at the bedside?->Yes [facility] 1950 Sex: MFINAL REPORT RAD, CHEST, 1 VIEW, NON DEPT TECHNIQUE: Frontal view(s) of the chest.INDICATION: post op COMPARISON: Chest radiograph 08/15/2022 FINDINGS/IMPRESSION: Lines/Tubes: Right IJ [place]-Robert catheter is seen with tip at the pulmonary outflow tract. Endotracheal tube is seen. Enteric tube is present with tip below the field of view. Lungs/pleura: Bibasilar atelectasis. Small bilateral pleural effusions. No pneumothorax. Heart and Mediastinum: Unchanged. Soft Tissues and Bones: Unchanged. Signed: Mohsen Gray Verified Date/Time: 08/24/2022 16:10:03 COMPREHENSIVE METABOLIC [id number] 15:18:28 Test Item Value Reference Range Interpretation [...] hemolyzed code = 347) EGFR (BEAKER) 65 Interpretati on of eGFR (test code = 1092) mL/min/1.73 [...] not appl icable for dialysis patien ts Group Work Program Director ID - [id number] 15:18:27 Test Item Value Reference Range Interpretation Comments MAGNESIUM (BEAKER) 1.6 mg/dL 1.6-2.6 Specimen slightly (test code = 627) hemolyzed Group Work Program Director ID - [id number] 15:18:27 Test Item Value Reference Range Interpretation Comments PHOSPHORUS (BEAKER) 4.6 mg/dL 2.3-4.7 Specimen slightly (test code = 604) hemolyzed Group Work Program Director ID - [id number] 15:11:03 Test Item Value Reference Range Interpretation [...] is 2.5-3.5 for patients with mechanical heart valves.[id number] 15:10:44 Test Item Value Reference Range Interpretation Comments FIBRINOGEN LEVEL (BEAKER) (test 287 mg/dl 225-434 code = 658) PROTHROMBIN [id number] 15:10:22 Test Item Value Reference Range Interpretation [...] mechanical heart valves.CBC W/PLT COUNT & AUTO [id number] 15:05:20 Test Item Value Reference Range Interpretation [...] (BEAKER) (test code = 413) LACTIC ACID, [id number] 15:05:19 Test Item Value Reference Range Interpretation Comments LACTATE BLOOD 2.3 mmol/L 0.5-2.0 H Specimen sligh tly ARTERIAL (2) (BEAKER) hemoly zed (test code = 2874) Group Work Program Director ID - [id number] (H&H) - STAT [id number] 14:48:09 Test Item Value Reference Range Interpretation Comments HEMOGLOBIN (BEAKER) (test code = 10.8 GM/DL 13.0-16.8 L 410) HEMATOCRIT (BEAKER) (test code = 32.0 % 40.0-50.0 L 411) BLOOD GAS, [id number] 14:48:08 Test Item Value Reference Range Interpretation [...] (BEAKER) (test code = 1819) 50.0 CALCIUM, [id number] 14:47:51 Test Item Value Reference Range Interpretation Comments CALCIUM IONIZED (BEAKER) (test 1.24 mmol/L 1.12-1.27 code = 698) PH, BLOOD (BEAKER) (test code = 7.38 1810) OXYGEN SATURATION, [id number] 14:47:35 Test Item Value Reference Range Interpretation Comments O2 SATURATION (MEASURED) (BEAKER) 72.2 % (test code = 1455) SODIUM NA-STAT [id number] 14:47:14 Test Item Value Reference Range Interpretation Comments SODIUM (BEAKER) (test code = 381) 138 meq/L 136-145 POTASSIUM-STAT [id number] 14:47:14 Test Item Value Reference Range Interpretation Comments POTASSIUM (BEAKER) (test code = 4.4 meq/L 3.6-5.5 379) GLUCOSE-STAT [id number] 14:47:13 Test Item Value Reference Range Interpretation Comments GLUCOSE RANDOM (BEAKER) (test code 204 mg/dL 70-110 H = 652) HGB/HCT (H&H) - STAT [id number] 13:49:15 Test Item Value Reference Range Interpretation Comments HEMOGLOBIN (BEAKER) (test code = 11.7 GM/DL 13.0-16.8 L 410) HEMATOCRIT (BEAKER) (test code = 34.0 % 40.0-50.0 L 411) CALCIUM, [id number] 13:49:14 Test Item Value Reference Range Interpretation Comments CALCIUM IONIZED (BEAKER) (test 1.11 mmol/L 1.12-1.27 L code = 698) PH, BLOOD (BEAKER) (test code = 7.28 1810) BLOOD GAS, [id number] 13:49:14 Test Item Value Reference Range Interpretation [...] (BEAKER) (test code = 1819) 100.0 POTASSIUM-STAT [id number] 13:49:02 Test Item Value Reference Range Interpretation Comments POTASSIUM (BEAKER) (test code = 4.4 meq/L 3.6-5.5 379) SODIUM NA-STAT [id number] 13:49:01 Test Item Value Reference Range Interpretation Comments SODIUM (BEAKER) (test code = 381) 137 meq/L 136-145 GLUCOSE-STAT [id number] 13:48:56 Test Item Value Reference Range Interpretation Comments GLUCOSE RANDOM (BEAKER) (test code 237 mg/dL 70-110 H = 652) [id number] 13:28:17 Test Item Value Reference Range Interpretation Comments PTT (test code = 78935-7) 35.4 See_Comment [ Automated message] The system [employer] generated this result transmitted ref erence range: 22.5 - 3 6.0 seconds. The re ference range was not u sed to interpret this result as normal/abnor mal. Lab Interpretation (test Normal code = 42568-9) [id number] 13:28[facility]17 Test Item Value Reference Range Interpretation Comments PARTIAL THROMBOPLASTIN TIME 35.4 seconds 22.5-36.0 (BEAKER) (test code = 760) [id number] 13:27:53 Test Item Value Reference Range Interpretation Comments FIBRINOGEN LEVEL (BEAKER) (test 336 mg/dl 225-434 code = 658) PROTHROMBIN [id number] 13:27:36 Test Item Value Reference Range Interpretation Comments PROTIME (BEAKER) (test code = 24.7 seconds 11.9-14.2 H 759) INR (BEAKER) (test code = 370) 2.41 <=5.90 RECOMMENDED COUMADIN/WARFARIN INR THERAPY RANGESSTANDARD DOSE: 2.0 - 3.0 Includes: PROPHYLAXIS for venous thrombosis, systemic embolization; TREATMENT for venous thrombosis and/or pulmonary embolus.HIGH RISK: Target INR is 2.5-3.5 for patients with mechanical heart valves.Platelet [id number] 13:24:21 Test Item Value Reference Range Interpretation Comments Platelets (test code 139 See_Comment L OR samp le = 777-3) [Automated message] The system which generated this result transmit ronaldo reference range : 150 - 450 K/CU MM. The reference range was not u sed to interpret th is result as normal/abnormal . SWEETIE (test code = SWEETIE) Group Work Program Director ID - [id number] Lab Interpretation Abnormal (test code = 21103-8) [facility] [id number] 13:24:21 Test Item Value Reference Range Interpretation Comments PLATELET COUNT (BEAKER) (test 139 K/CU MM 150-450 L OR sample code = 756) Group Work Program Director ID - [id number] GAS, [id number] 13:06:54 Test Item Value Reference Range Interpretation [...] = 1819) 100.0 HGB/HCT (H&H) - STAT [id number] 13:06:54 Test Item Value Reference Range Interpretation Comments HEMOGLOBIN (BEAKER) (test code = 8.7 GM/DL 13.0-16.8 L 410) HEMATOCRIT (BEAKER) (test code = 26.0 % 40.0-50.0 L 411) CALCIUM, [id number] 13:06:48 Test Item Value Reference Range Interpretation Comments CALCIUM IONIZED (BEAKER) (test 1.27 mmol/L 1.12-1.27 code = 698) PH, BLOOD (BEAKER) (test code = 7.33 1810) GLUCOSE-STAT [id number] 13:06:31 Test Item Value Reference Range Interpretation Comments GLUCOSE RANDOM (BEAKER) (test code 258 mg/dL 70-110 H = 652) POTASSIUM-STAT [id number] 13:06:31 Test Item Value Reference Range Interpretation Comments POTASSIUM (BEAKER) (test code = 5.0 meq/L 3.6-5.5 379) SODIUM NA-STAT [id number] 13:06:30 Test Item Value Reference Range Interpretation Comments SODIUM (BEAKER) (test code = 381) 135 meq/L 136-145 L POTASSIUM-STAT [id number] 12:30:24 Test Item Value Reference Range Interpretation Comments POTASSIUM (BEAKER) (test code = 6.2 meq/L 3.6-5.5 HH 379) BLOOD GAS, [id number] 12:29:36 Test Item Value Reference Range Interpretation [...] = 1819) 80.0 HGB/HCT (H&H) - STAT [id number] 12:29:36 Test Item Value Reference Range Interpretation Comments HEMOGLOBIN (BEAKER) (test code = 8.8 GM/DL 13.0-16.8 L 410) HEMATOCRIT (BEAKER) (test code = 26.0 % 40.0-50.0 L 411) SODIUM NA-STAT [id number] 12:29:18 Test Item Value Reference Range Interpretation Comments SODIUM (BEAKER) (test code = 381) 135 meq/L 136-145 L GLUCOSE-STAT [id number] 12:29:17 Test Item Value Reference Range Interpretation Comments GLUCOSE RANDOM (BEAKER) (test code 253 mg/dL 70-110 H = 652) POTASSIUM-STAT [id number] 12:00:04 Test Item Value Reference Range Interpretation Comments POTASSIUM (BEAKER) (test code = 6.5 meq/L 3.6-5.5 HH 379) HGB/HCT (H&H) - STAT [id number] 11:58:32 Test Item Value Reference Range Interpretation Comments HEMOGLOBIN (BEAKER) (test code = 9.0 GM/DL 13.0-16.8 L 410) HEMATOCRIT (BEAKER) (test code = 26.0 % 40.0-50.0 L 411) BLOOD GAS, [id number] 11:58:31 Test Item Value Reference Range Interpretation [...] (test code = 1819) 70.0 SODIUM NA-STAT [id number] 11:58:31 Test Item Value Reference Range Interpretation Comments SODIUM (BEAKER) (test code = 381) 132 meq/L 136-145 L GLUCOSE-STAT [id number] 11:58:17 Test Item Value Reference Range Interpretation Comments GLUCOSE RANDOM (BEAKER) (test code 261 mg/dL 70-110 H = 652) SODIUM NA-STAT [id number] 11:22:06 Test Item Value Reference Range Interpretation Comments SODIUM (BEAKER) (test code = 381) 129 meq/L 136-145 L HGB/HCT (H&H) - STAT [id number] 11:22:06 Test Item Value Reference Range Interpretation Comments HEMOGLOBIN (BEAKER) (test code = 9.0 GM/DL 13.0-16.8 L 410) HEMATOCRIT (BEAKER) (test code = 26.0 % 40.0-50.0 L 411) BLOOD GAS, [id number] 11:22:05 Test Item Value Reference Range Interpretation [...] (BEAKER) (test code = 1819) 70.0 POTASSIUM-STAT [id number] 11:22:00 Test Item Value Reference Range Interpretation Comments POTASSIUM (BEAKER) (test code = 6.2 meq/L 3.6-5.5 HH 379) GLUCOSE-STAT [id number] 11:21:39 Test Item Value Reference Range Interpretation Comments GLUCOSE RANDOM (BEAKER) (test code 252 mg/dL 70-110 H = 652) BLOOD GAS, [id number] 10:49:31 Test Item Value Reference Range Interpretation [...] (test code = 1819) 80.0 SODIUM NA-STAT [id number] 10:49:31 Test Item Value Reference Range Interpretation Comments SODIUM (BEAKER) (test code = 381) 129 meq/L 136-145 L HGB/HCT (H&H) - STAT [id number] 10:49:31 Test Item Value Reference Range Interpretation Comments HEMOGLOBIN (BEAKER) (test code = 9.3 GM/DL 13.0-16.8 L 410) HEMATOCRIT (BEAKER) (test code = 27.0 % 40.0-50.0 L 411) GLUCOSE-STAT [id number] 10:49:11 Test Item Value Reference Range Interpretation Comments GLUCOSE RANDOM (BEAKER) (test code 178 mg/dL 70-110 H = 652) POTASSIUM-STAT [id number] 10:49:11 Test Item Value Reference Range Interpretation Comments POTASSIUM (BEAKER) (test code = 5.4 meq/L 3.6-5.5 379) HGB/HCT (H&H) - STAT [id number] 08:09:53 Test Item Value Reference Range Interpretation Comments HEMOGLOBIN (BEAKER) (test code = 12.5 GM/DL 13.0-16.8 L 410) HEMATOCRIT (BEAKER) (test code = 37.0 % 40.0-50.0 L 411) BLOOD GAS, [id number] 08:09:52 Test Item Value Reference Range Interpretation [...] (BEAKER) (test code = 1819) 100.0 CALCIUM, [id number] 08:09:41 Test Item Value Reference Range Interpretation Comments CALCIUM IONIZED (BEAKER) (test 1.13 mmol/L 1.12-1.27 code = 698) PH, BLOOD (BEAKER) (test code = 7.49 1810) SODIUM NA-STAT [id number] 08:09:24 Test Item Value Reference Range Interpretation Comments SODIUM (BEAKER) (test code = 381) 135 meq/L 136-145 L POTASSIUM-STAT [id number] 08:09:24 Test Item Value Reference Range Interpretation Comments POTASSIUM (BEAKER) (test code = 4.7 meq/L 3.6-5.5 379) GLUCOSE-STAT [id number] 08:09:23 Test Item Value Reference Range Interpretation Comments GLUCOSE RANDOM (BEAKER) (test code 135 mg/dL 70-110 H = 652) BASIC METABOLIC [id number] 04:54:21 Test Item Value Reference Range Interpretation [...] not appl icable for dialysis patien ts Group Work Program Director ID - [id number] 04:42:34 Test Item Value Reference Range Interpretation [...] 0-0 (BEAKER) (test code = 413) POCT-GLUCOSE [id number] 21:31:04 Test Item Value Reference Range Interpretation Comments POC-GLUCOSE METER 159 mg/dL 70-110 H : TESTED A T [facility] 6720 (BEAKER) (test code = [facility], 1538) 94970: Group Work Program Director/Techni maikol ID = [id number] for Br Jose jean baptiste POCT-GLUCOSE [id number] 17:31:14 Test Item Value Reference Range Interpretation Comments POC-GLUCOSE METER 119 mg/dL 70-110 H : TESTED A T [facility] 6720 (BEAKER) (test code = [facility], 1538) 30230: Group Work Program Director/Techni maikol ID = [id number] for OR MARKY, ELIAS POCT-GLUCOSE [id number] 12:16:24 Test Item Value Reference Range Interpretation Comments POC-GLUCOSE METER 142 mg/dL 70-110 H : TESTED A T [facility] 6720 (BEAKER) (test code = [facility], 1538) 98723: Group Work Program Director/Techni maikol ID = [id number] for OR MARKY, ELIAS POCT-GLUCOSE [id number] 08:02:24 Test Item Value Reference Range Interpretation Comments POC-GLUCOSE METER 147 mg/dL 70-110 H : TESTED A T [facility] 6720 (BEAKER) (test code = [facility], 1538) 06195: Group Work Program Director/Techni maikol ID = [id number] for OR PHEY, ELIAS BASIC METABOLIC [id number] 06:24:24 Test Item Value Reference Range Interpretation [...] not appl icable for dialysis patien ts Group Work Program Director ID - [id number] 06:13:21 Test Item Value Reference Range Interpretation Comments PARTIAL THROMBOPLASTIN TIME 62.0 seconds 22.5-36.0 H ([employer] (powering [employer])AKER) (test code = 760) [id number] 06:12:21 Test Item Value Reference Range Interpretation Comments PARTIAL THROMBOPLASTIN TIME 67.6 seconds 22.5-36.0 H (AKER) (test code = 760) POCT-GLUCOSE [id number] 22:07:45 Test Item Value Reference Range Interpretation Comments POC-GLUCOSE METER 143 mg/dL 70-110 H : TESTED A T [facility] 6720 ([employer]) (test code = [facility], 1538) 66894: Group Work Program Director/Techni maikol ID = [id number] for Br isMendel canadaa POCT-GLUCOSE [id number] 17:18:02 Test Item Value Reference Range Interpretation Comments POC-GLUCOSE METER 162 mg/dL 70-110 H : TESTED A T [facility] 6720 ([employer] (powering [employer])AKER) (test code = [facility], 1538) 26948: Group Work Program Director/Techni maikol ID = [id number] for PETTY HN, ADI POCT-GLUCOSE [id number] 12:05:28 Test Item Value Reference Range Interpretation Comments POC-GLUCOSE METER 155 mg/dL 70-110 H : TESTED A T [facility] 6720 ([employer]) (test code = [facility], 1538) 82591: Group Work Program Director/Techni maikol ID = [id number] for PETTY HN, ADI POCT-GLUCOSE [id number] 07:40:55 Test Item Value Reference Range Interpretation Comments POC-GLUCOSE METER 144 mg/dL 70-110 H : TESTED A T [facility] 6720 (BEAKER) (test code = BHAVNA Gutiérrez [facility], 1538) 13194: Group Work Program Director/Techni maikol ID = [id number] for ADI CHACON BASIC METABOLIC [id number] 02:07:39 Test Item Value Reference Range Interpretation [...] not appl icable for dialysis patien ts Group Work Program Director ID - [id number] 01:54:03 Test Item Value Reference Range Interpretation Comments PARTIAL THROMBOPLASTIN TIME 66.5 seconds 22.5-36.0 H (BEAKER) (test code = 760) POCT-GLUCOSE [id number] 20:58:51 Test Item Value Reference Range Interpretation Comments POC-GLUCOSE METER 130 mg/dL 70-110 H : TESTED A T [facility] 6720 (BEAKER) (test code = [facility], 153) 89654: Group Work Program Director/Techni maikol ID = [id number] for FOREST BERMAN [id number] 18:59:33 Test Item Value Reference Range Interpretation Comments PARTIAL THROMBOPLASTIN TIME 64.1 seconds 22.5-36.0 H (BEAKER) (test code = 760) POCT-GLUCOSE [id number] 17:30:38 Test Item Value Reference Range Interpretation Comments POC-GLUCOSE METER 154 mg/dL 70-110 H : TESTED A T [facility] 6720 (BEAKER) (test code = [facility], 1538) 86792: Group Work Program Director/Techni maikol ID = [id number] for ADI CHACON POCT-GLUCOSE [id number] 17:00:05 Test Item Value Reference Range Interpretation Comments POC-GLUCOSE METER 190 mg/dL 70-110 H : TESTED A T [facility] 6720 (BEAKER) (test code = [facility], 153) 88995: Group Work Program Director/Techni maikol ID = [id number] for Ba rrMarysol estradaa [id number] 11:30:12 Test Item Value Reference Range Interpretation Comments PARTIAL THROMBOPLASTIN TIME 103.9 seconds 22.5-36.0 H (BEAKER) (test code = 760) POCT-GLUCOSE [id number] 07:32:04 Test Item Value Reference Range Interpretation Comments POC-GLUCOSE METER 131 mg/dL 70-110 H : TESTED A T [facility] 6720 (BEAKER) (test code = [facility], 153) 28579: Group Work Program Director/Techni maikol ID = [id number] for Ba rrera, Yolanda [id number] 05:00:02 Test Item Value Reference Range Interpretation Comments PARTIAL THROMBOPLASTIN TIME 108.5 seconds 22.5-36.0 H (BEAKER) (test code = 760) BASIC METABOLIC [id number] 04:54:16 Test Item Value Reference Range Interpretation [...] not appl icable for dialysis patien ts Group Work Program Director ID - [id number] 21:58:05 Test Item Value Reference Range Interpretation Comments PARTIAL THROMBOPLASTIN TIME 87.8 seconds 22.5-36.0 H (BEAKER) (test code = 760) POCT-GLUCOSE [id number] 21:33:05 Test Item Value Reference Range Interpretation Comments POC-GLUCOSE METER 140 mg/dL 70-110 H : TESTED A T [facility] 6720 (BEGenwords) (test code = [facility], 153) 66522: Group Work Program Director/Techni maikol ID = [id number] for FI TE, FOREST POCT-GLUCOSE [id number] 17:23:03 Test Item Value Reference Range Interpretation Comments POC-GLUCOSE METER 121 mg/dL 70-110 H : TESTED A T [facility] 6720 (BEAKER) (test code = [facility], 153) 92893: Group Work Program Director/Techni maikol ID = [id number] for MICKI BAGLEY BASIC METABOLIC [id number] 15:42:26 Test Item Value Reference Range Interpretation [...] not appl icable for dialysis patien ts Group Work Program Director ID - [id number] 15:01:06 Test Item Value Reference Range Interpretation Comments PARTIAL THROMBOPLASTIN TIME 34.4 seconds 22.5-36.0 (BEAKER) (test code = 760) [id number] 13:42:30 Test Item Value Reference Range Interpretation Comments PARTIAL THROMBOPLASTIN TIME > seconds 22.5-36.0 HH (BEAKER) (test code = 760) POCT-GLUCOSE [id number] 12:12:37 Test Item Value Reference Range Interpretation Comments POC-GLUCOSE METER 158 mg/dL 70-110 H : [facility] (BE[facility]ER) (test code = BHAVNA [place]ZAL[place], 1538) 18194: Group Work Program Director/Techni maikol ID = [id number] for EILEENMICKI RECINOS POCT-GLUCOSE [id number] 08:10:28 Test Item Value Reference Range Interpretation Comments POC-GLUCOSE METER 117 mg/dL 70-110 H : TESTED A T [facility] 6720 ([facility]) (test code = [facility], 153) 74987: Group Work Program Director/Techni maikol ID = [id number] for MICKI BAGLEY [id number] 04:55:48 Test Item Value Reference Range Interpretation Comments PARTIAL THROMBOPLASTIN TIME 61.9 seconds 22.5-36.0 H ([facility]) (test code = 760) POCT-GLUCOSE [id number] 21:10:34 Test Item Value Reference Range Interpretation Comments POC-GLUCOSE METER 132 mg/dL 70-110 H : TESTED A T [facility] 6720 ([facility]) (test code = [facility], [facility]) 23939: Group Work Program Director/Techni maikol ID = [id number] for FOREST BERMAN [id number] 17:36:22 Test Item Value Reference Range Interpretation Comments PARTIAL THROMBOPLASTIN TIME 66.6 seconds 22.5-36.0 H ([facility]) (test code = 760) POCT-GLUCOSE [id number] 17:21:11 Test Item Value Reference Range Interpretation Comments POC-GLUCOSE METER 178 mg/dL 70-110 H : TESTED A T [facility] 6720 ([facility]) (test code = [facility], 153) 38687: Group Work Program Director/Techni maikol ID = [id number] for MICKI BAGLEY Carotid doppler [id number] 13:47:49Ejection FractionSLEH ECHO HEARTLAB MKCKESSON [facility] CenterVein Mapping Legs [id number] 13:47:29Ejection FractionSLEH ECHO HEARTLAB MKCKESSON [facility] [id number] 12:43:32 Test Item Value Reference Range Interpretation Comments POC-GLUCOSE METER 184 mg/dL 70-110 H : TESTED A T [facility] 6720 ([facility]) (test code = [facility], 153) 38972: Group Work Program Director/Techni maikol ID = [id number] for MICKI BAGLEY T SPOT [id number] 10:16:57 Test Item Value Reference Range Interpretation [...] = 1687) SCAN RESULT (test code = 4766548) [id number] 09:50:54 Test Item Value Reference Range Interpretation Comments PARTIAL THROMBOPLASTIN TIME 67.3 seconds 22.5-36.0 H (BEAKER) (test code = 760) POCT-GLUCOSE [id number] 07:33:54 Test Item Value Reference Range Interpretation Comments POC-GLUCOSE METER 135 mg/dL 70-110 H : TESTED A T [facility] 6720 (BEAKER) (test code = [facility] [place], 1538) 76459: Group Work Program Director/Techni maikol ID = [id number] for MICKI BAGLEY [id number] 02:51:47 Test Item Value Reference Range Interpretation Comments PARTIAL THROMBOPLASTIN TIME 56.8 seconds 22.5-36.0 H (BEAKER) (test code = 760) COMPREHENSIVE METABOLIC [id number] 02:33:27 Test Item Value Reference Range Interpretation [...] = 382) CO2 (BEAKER) (test 25 meq/L 22-29 code = 355) BLOOD UREA 20 mg/dL [...] not appl icable for dialysis patien ts Group Work Program Director ID - ADMINPOCT-GLUCOSE [id number] 21:20:07 Test Item Value Reference Range Interpretation Comments POC-GLUCOSE METER 202 mg/dL 70-110 H : TESTED A T [facility] 6720 ([facility]) (test code = BHAVNA Gutiérrez [facility], 1538) 56416: Group Work Program Director/Techni maikol ID = [id number] for FI SKYE, FOREST [id number] 16:22:48 Test Item Value Reference Range Interpretation Comments ACTIVATED CLOTTING TIME 149 sec : 74 -137 seconds, (BEAKER) (test code = Baseli ne: TESTED AT 441) [facility] 6720 [facility], 770 30: Group Work Program Director/Techni maikol ID = [id number] for Floresita Green [id number] 14:07:12 Test Item Value Reference Range Interpretation Comments ACTIVATED CLOTTING TIME 191 sec : 74 -137 seconds, (BEAKER) (test code = Baseli ne: TESTED AT 441) [facility] 6720 [facility], 770 30: Group Work Program Director/Techni maikol ID = [id number] for HUSAM HEWITT METABOLIC [id number] 10:49:46 Test Item Value Reference Range Interpretation [...] appl icable for dialysis patien ts POCT-GLUCOSE [id number] 07:48:02 Test Item Value Reference Range Interpretation Comments POC-GLUCOSE METER 142 mg/dL 70-110 H : TESTED A T [facility] 6720 (BEAKER) (test code = BHAVNA Gutiérrez [place], 1538) 65230: Group Work Program Director/Techni maikol ID = [id number] for ADI CHACON [id number] 06:15:20 Test Item Value Reference Range Interpretation Comments PARTIAL THROMBOPLASTIN TIME 100.3 seconds 22.5-36.0 H (BEAKER) (test code = 760) [id number] 22:49:40 Test Item Value Reference Range Interpretation Comments PARTIAL THROMBOPLASTIN TIME 96.9 seconds 22.5-36.0 H (BEAKER) (test code = 760) POCT-GLUCOSE [id number] 21:17:49 Test Item Value Reference Range Interpretation Comments POC-GLUCOSE METER 190 mg/dL 70-110 H : TESTED A T [facility] 6720 (BEAKER) (test code = BHAVNA Gutiérrez [facility], 1538) 50655: Group Work Program Director/Techni maikol ID = [id number] for Vickie Jose jean baptiste Drug Test, General Toxicology, [id number] 19:18:16 Test Item Value Reference Interpretation Comments Range Acetone(Quest) 6 mg/dL H (test code = 3053) Methanol([facility]) None Detected (test code = 3054) Drug Test,Genrl see note The followin g compounds were Tox,U (test code detected: C affeine = 8825297) Dextrorphan Zaki icylic Acid For a list of c ompounds and limits of detec tion go to:[email or web address] [email or web address]/fa [email or web address] ISOPROPANOL (test None Detected code = 2034082) ETHANOL (test None Detected Volatile Isaacs it of code = 1635539) Detection: 5 mg/dL This test was developed a nd its analytical performancechar acteristics have been deter mined by [employer] s [place], [place]. It hasnot been asael ared or approved by the U.S. Food and DrugAdminis tration. This assay has been validated pursuantto the CLIA regulations and is used for clinicalpurpose s. SWEETIE (test code = Performing SWEETIE) Lab 15 [employer] [facility]/N [facility] [id number] [place] [address] [place] [address] Rylee Cazares MD, PhD Lab Abnormal Interpretation (test code = 41572-4) [facility] [id number] 17:13:10 Test Item Value Reference Range Interpretation Comments POC-GLUCOSE METER 178 mg/dL 70-110 H : TESTED A T [facility] 6720 (BEAKER) (test code = [facility] Brock [facility], 1538) [id number]: Group Work Program Director/Techni maikol ID = [id number] for ADI CHACON [id number] 16:13:17 Test Item Value Reference Range Interpretation Comments PARTIAL THROMBOPLASTIN TIME 58.1 seconds 22.5-36.0 H (BEAKER) (test code = 760) 2D Echo W/Doppler(CW/PW/Color)2022-08-17 15:00:32Ejection FractionSLEH ECHO HEARTLAB MKCKESSON [facility]PO[facility] [id number] 12:05:53 Test Item Value Reference Range Interpretation Comments POC-GLUCOSE METER 174 mg/dL 70-110 H : TESTED A T [facility] 6720 (BEAKER) (test code = [facility], 1538) [id number]: Group Work Program Director/Techni maikol ID = [id number] for ADI CHACON [id number] 08:24:49 Test Item Value Reference Range Interpretation Comments PARTIAL THROMBOPLASTIN TIME 69.9 seconds 22.5-36.0 H (BEAKER) (test code = 760) POCT-GLUCOSE [id number] 07:53:31 Test Item Value Reference Range Interpretation Comments POC-GLUCOSE METER 122 mg/dL 70-110 H : TESTED A T [facility] 6720 (BEAKER) (test code = [facility] Brock [facility], 1538) 06725: Group Work Program Director/Techni maikol ID = [id number] for ADI CHACON (CELLAVISION MANUAL DIFF)2022-08-17 07:06:56 [...] CONCENTRATION Adequate (CELLAVISION)(BEAKER) (test code = 3438) Group Work Program Director ID - Tiesha Irvin comments: Slide comments:CBC W/PLT COUNT & AUTO [id number] 07:06:55 Test Item Value Reference Range Interpretation [...] (BEAKER) (test code = 413) COMPREHENSIVE METABOLIC [id number] 06:04:37 Test Item Value Reference Range Interpretation [...] not appl icable for dialysis patien ts Group Work Program Director ID - GENI [id number] 05:52:05 Test Item Value Reference Range Interpretation Comments PARTIAL THROMBOPLASTIN TIME 110.4 seconds 22.5-36.0 H (BEAKER) (test code = 760) BLOOD [id number] 02:00:26 Test Item Value Reference Range Interpretation Comments CULTURE (BEAKER) (test No growth in 5 days code = 1095) The specimen volume collected for this blood culture was below the optimum (10 mL per bottle or 20 mL total). Use of lower volumes may adversely affect recovery and/or detection times of some organisms.BLOOD [id number] 00:01:31 Test Item Value Reference Range Interpretation Comments CULTURE (BEAKER) (test No growth in 5 days code = 1095) POCT-GLUCOSE [id number] 20:38:56 Test Item Value Reference Range Interpretation Comments POC-GLUCOSE METER 170 mg/dL 70-110 H : TESTED A T [facility] 6720 (BEAKER) (test code = [facility] Goodzer [facility], 1538) 05661: Group Work Program Director/Techni maikol ID = [id number] for Br Mendel jean baptistea POCT-GLUCOSE [id number] 17:24:15 Test Item Value Reference Range Interpretation Comments POC-GLUCOSE METER 135 mg/dL 70-110 H : TESTED A T [facility] 6720 (BEAKER) (test code = [facility] [facility], 1538) 40034: Group Work Program Director/Techni maikol ID = [id number] for MICKI BAGLEY POCT-GLUCOSE [id number] 12:37:08 Test Item Value Reference Range Interpretation Comments POC-GLUCOSE METER 181 mg/dL 70-110 H : TESTED A T [facility] 6720 (BEAKER) (test code = [facility], 1538) 96906: Group Work Program Director/Techni maikol ID = [id number] for Co rtez, Jeannie [id number] 12:36:40 Test Item Value Reference Range Interpretation Comments PARTIAL THROMBOPLASTIN TIME 76.9 seconds 22.5-36.0 H (BEAKER) (test code = 760) POCT-GLUCOSE [id number] 07:57:49 Test Item Value Reference Range Interpretation Comments POC-GLUCOSE METER 142 mg/dL 70-110 H : TESTED A T [facility] 6720 (BEAKER) (test code = [facility], 1538) 03438: Group Work Program Director/Techni maikol ID = [id number] for Co rtez, Jeannie (CELLAVISION MANUAL DIFF)2022-08-16 07:39:23 Test Item Value [...] CONCENTRATION Adequate (CELLAVISION)(BEAKER) (test code = 3438) Group Work Program Director ID - Makenzie OverholtUser comments: Slide comments:CBC W/PLT COUNT & AUTO [id number] 07:39:22 Test Item Value Reference Range Interpretation [...] (BEAKER) (test code = 413) HEPATIC FUNCTION [id number] 05:15:06 Test Item Value Reference Range Interpretation [...] (test code = 55 U/L 6-55 347) Group Work Program Director ID - GENI GBASIC METABOLIC [id number] 05:15:05 Test Item Value Reference Range Interpretation [...] not appl icable for dialysis patien ts Group Work Program Director ID - GENI [id number] 05:15:05 Test Item Value Reference Range Interpretation Comments MAGNESIUM (BEAKER) (test code = 2.0 mg/dL 1.6-2.6 627) Group Work Program Director ID - GENI [id number] 05:15:05 Test Item Value Reference Range Interpretation Comments PHOSPHORUS (BEAKER) (test code = 3.3 mg/dL 2.3-4.7 604) Group Work Program Director ID - GENI [id number] 05:03:19 Test Item Value Reference Range Interpretation Comments PARTIAL THROMBOPLASTIN TIME 83.9 seconds 22.5-36.0 H (BEAKER) (test code = 760) CALCIUM, [id number] 04:44:18 Test Item Value Reference Range Interpretation Comments CALCIUM IONIZED (BEAKER) (test 1.05 mmol/L 1.12-1.27 L code = 698) PH, BLOOD (BEAKER) (test code = 7.49 1810) [id number] 21:39:14 Test Item Value Reference Range Interpretation Comments PARTIAL THROMBOPLASTIN TIME 46.8 seconds 22.5-36.0 H (BEAKER) (test code = 760) POCT-GLUCOSE [id number] 21:31:46 Test Item Value Reference Range Interpretation Comments POC-GLUCOSE METER 161 mg/dL 70-110 H : TESTED A T [facility] 6720 (BEAKER) (test code = [place], 1538) 32047: Group Work Program Director/Techni maikol ID = [id number] for Br Jose jean baptiste [id number] 19:48:49 Test Item Value Reference Range Interpretation Comments PARTIAL THROMBOPLASTIN TIME 120.5 seconds 22.5-36.0 H (BEAKER) (test code = 760) POCT-GLUCOSE [id number] 17:35:39 Test Item Value Reference Range Interpretation Comments POC-GLUCOSE METER 128 mg/dL 70-110 H : TESTED A T [facility] 6720 (BEAKER) (test code = [place], 1538) 31924: Group Work Program Director/Techni maikol ID = [id number] for Co Jeannie paulson BASIC METABOLIC [id number] 13:54:06 Test Item Value Reference Range Interpretation [...] 30-44 G4 Severl y decreased 15-29 G5 Kidne y failure <15Reported eGF R is based on the CKD-EPI 1 equation that d oes not use a race coefficientEsti mated GFR is not as accur ate as Creatinine Jessica villarreal in predicting glom erular filtration rate . Estimated GFR is not appl icable for dialysis patien ts Group Work Program Director ID - [id number] 13:51:02 Test Item Value Reference Range Interpretation Comments PARTIAL THROMBOPLASTIN TIME 84.8 seconds 22.5-36.0 H (BEAKER) (test code = 760) BLOOD GAS, [id number] 13:33:19 Test Item Value Reference Range Interpretation [...] (BEAKER) (test code = 1819) 21.0 POCT-GLUCOSE [id number] 12:19:39 Test Item Value Reference Range Interpretation Comments POC-GLUCOSE METER 229 mg/dL 70-110 H : TESTED A T [facility] 6720 (BEAKER) (test code = [facility], 1538) 97384: Group Work Program Director/Techni maikol ID = [id number] for Co rtez, [place] RAD, CHEST, 1 VIEW, NON [id number] 08:02:00Reason for exam:->pnaShould this be performed at the bedside?->Yes [facility] 1950 Sex: MFINAL [...] H : TESTED A T [facility] 6720 (BEAKER) (test code = [facility] [place], 1538) 47925: Group Work Program Director/Techni maikol ID = [id number] for Co Jeannie paulson [id number] 05:30:58 Test Item Value Reference Range Interpretation Comments MAGNESIUM (BEAKER) (test code = 2.1 mg/dL 1.6-2.6 627) Group Work Program Director ID - MMHEPATIC FUNCTION [id number] 05:30:58 Test Item Value Reference Range Interpretation [...] code = 71 U/L 6-55 H 347) Group Work Program Director ID - MMBASIC METABOLIC [id number] 05:30:57 Test Item Value Reference Range Interpretation [...] glom erular filtration rate . Estimated GFR i s not applicable for dialysis patients Group Work Program Director ID - MMB-TYPE NATRIURETIC FACTOR (BNP)2022-08-15 05:02:44 Test Item Value Reference Range Interpretation Comments B-TYPE NATRIURETIC PEPTIDE (AKER) 674 pg/mL 0-100 H (test code = 700) Group Work Program Director ID - MMLACTIC ACID, [id number] 04:49:56 Test Item Value Reference Range Interpretation Comments LACTATE BLOOD VENOUS 2.32 mmol/L 0.50-2.20 H Specime n slightly (2) ([facility]) (test hemolyzed code = 4581) Group Work Program Director ID - [id number] 04:45:17 Test Item Value Reference Range Interpretation Comments PARTIAL THROMBOPLASTIN TIME 63.2 seconds 22.5-36.0 H (AKER) (test code = 760) POCT-GLUCOSE [id number] 20:53:17 Test Item Value Reference Range Interpretation Comments POC-GLUCOSE METER 169 mg/dL 70-110 H : TESTED A T [facility] 6720 ([facility]) (test code = [place], 1538) 887[address]: Group Work Program Director/Techni maikol ID = [id number] for Br istolMendela [id number] 20:31:39 Test Item Value Reference Range Interpretation Comments PARTIAL THROMBOPLASTIN TIME 68.0 seconds 22.5-36.0 H (BEAKER) (test code = 760) POCT-GLUCOSE [id number] 17:26:55 Test Item Value Reference Range Interpretation Comments POC-GLUCOSE METER 205 mg/dL 70-110 H : TESTED A T [facility] 6720 (BEAKER) (test code = [facility] Brock [facility], 1538) 24125: Group Work Program Director/Techni miakol ID = [id number] for MICKI BAGLEY [id number] 15:08:47 Test Item Value Reference Range Interpretation Comments PARTIAL THROMBOPLASTIN TIME 76.8 seconds 22.5-36.0 H (BEAKER) (test code = 760) MRSA [id number] 14:13:20 Test Item Value Reference Range Interpretation Comments Result (test code = 6463-4) No [facility] isolated [id number] 14:13:20 Test Item Value Reference Range Interpretation Comments CULTURE (BEAKER) (test code No MRSA isolated = 1095) POCT-GLUCOSE [id number] 12:38:43 Test Item Value Reference Range Interpretation Comments POC-GLUCOSE METER 193 mg/dL 70-110 H : TESTED A T [facility] 6720 (BEAKER) (test code = [facility], 1538) 71075: Group Work Program Director/Techni maikol ID = [id number] for MICKI BAGLEY Sputum Culture + Gram [id number] 11:12:16 Test Item Value Reference Range Interpretation Comments Result (test code = 3+ Normal respiratory 6463-4) sherlyn present Gram Stain Result 1+ gram positive cocci in (test code = 1123) chains and pairs [facility]AM [id number] 11:12:16 Test Item Value Reference Range Interpretation Comments CULTURE (BEAKER) 3+ Normal respiratory (test code = 1095) sherlyn present GRAM STAIN RESULT 1+ WBCs (BEAKER) (test code = 1123) GRAM STAIN RESULT 0-5 epithelial cells (BEAKER) (test code = 83401) GRAM STAIN RESULT 1+ gram positive cocci (BEAKER) (test code = in chains and pairs 53871) POCT-GLUCOSE [id number] 08:07:19 Test Item Value Reference Range Interpretation Comments POC-GLUCOSE METER 171 mg/dL 70-110 H : TESTED A T [facility] 6720 (NEO) (test code = BHAV[facility] Gutiérrez [facility], 1538) 87140: Group Work Program Director/Techni maikol ID = [id number] for MICKI BAGLEY POCT-GLUCOSE [id number] 07:19:21 Test Item Value Reference Range Interpretation Comments POC-GLUCOSE METER 213 mg/dL 70-110 H : TESTED A T [facility] 6720 (NEO) (test code = BHAVNA Gutiérrez [facility], 1538) 82126: Group Work Program Director/Techni maikol ID = [id number] for GAEL ALVA RAD, CHEST, 1 VIEW, NON [id number] 07:19:00Reason for exam:->pnaShould this be performed at the bedside?->Yes [facility] 1950 Sex: MFINAL REPORT INDICATION: pna [...] atelectasis, similar to prior exam. Signed: [facility] Verified Date/Time: 08/14/2022 07:19:19 Reading Location: [address] Reading Room [id number] 06:50:50 Test Item Value Reference Range Interpretation Comments PARTIAL THROMBOPLASTIN TIME 85.7 seconds 22.5-36.0 H (BEAKER) (test code = 760) BASIC METABOLIC [id number] 06:43:55 Test Item Value Reference Range Interpretation [...] eGFR (test code = mL/min/1.73 values Stage D escription 1092) sq m Result G1 Effie l [...] not appl icable for dialysis patien ts Group Work Program Director ID - ADMINHEPATIC FUNCTION [id number] 06:36:29 Test Item Value Reference Range Interpretation [...] code = 81 U/L 6-55 H 347) Group Work Program Director ID - ADMINCBC (HEMOGRAM ONLY)2022-08-14 06:15:19 [...] WBC 0-0 (BEAKER) (test code = 413) [id number] 00:24:06 Test Item Value Reference Range Interpretation Comments PARTIAL THROMBOPLASTIN TIME 59.4 seconds 22.5-36.0 H (BEAKER) (test code = 760) VANCOMYCIN LEVEL, [id number] 00:19:07 Test Item Value Reference Range Interpretation Comments VANCOMYCIN TROUGH (BEAKER) (test 10.5 ug/mL 10.0-20.0 code = 522) Group Work Program Director ID - [id number] 17:30:37 Test Item Value Reference Range Interpretation Comments PARTIAL THROMBOPLASTIN TIME 47.0 seconds 22.5-36.0 H (BEAKER) (test code = 760) U/S, PELVIC, [id number] 17:17:00Reason for exam:->jose guadalupe [facility] : 1950 Sex: MFINAL [...] solid renal neoplasm. Signed: Kenisha Monteiro MDReport Verified Date/Time: 08/13/2022 17:17:09 U/S, ABDOMINAL, [id number] 17:17:00 Abdomen limited area? Add comment if clarification is needed.->Liver Reason for exam:->transaminitis [facility] : 1950 Sex: MFINAL [...] a solid renal neoplasm. Signed: Kenisha Monteiro [facility] Verified Date/Time: 08/13/2022 17:17:09 POCT-GLUCOSE [id number] 11:19:08 Test Item Value Reference Range Interpretation Comments POC-GLUCOSE METER 210 mg/dL 70-110 H : TESTED A [employer] [facility] ([employer]) (test code = [facility], 1538) 53035: Group Work Program Director/Techni maikol ID = [id number] for TIMOTHY LUNDBERG [id number] 09:54:29 Test Item Value Reference Range Interpretation Comments PARTIAL THROMBOPLASTIN TIME 57.7 seconds 22.5-36.0 H ([employer]) (test code = 760) Transthoracic 2D echo w/ doppler (cw/pw/color)2022-08-13 08:44:16Ejection FractionSLE ECHO HEARTLAB MKCKESSON [facility]PO[facility] [id number] 08:18:50 Test Item Value Reference Range Interpretation Comments POC-GLUCOSE METER 249 mg/dL 70-110 H : TESTED A T [facility] 6720 ([employer]) (test code = [facility], 1538) 21159: Group Work Program Director/Techni maikol ID = [id number] for TIMOTHY LUNDBERG [id number] 04:08:19 Test Item Value Reference Range Interpretation Comments MAGNESIUM (BEAKER) (test code = 2.1 mg/dL 1.6-2.6 627) Group Work Program Director ID - ADMINHEPATIC FUNCTION [id number] 04:08:19 Test Item Value Reference Range Interpretation [...] code = 105 U/L 6-55 H 347) Group Work Program Director ID - ADMINBASIC METABOLIC [id number] 04:08:18 Test Item Value Reference Range Interpretation [...] not appl icable for dialysis patien ts Group Work Program Director ID - [id number] 04:01:15 Test Item Value Reference Range Interpretation [...] 0-0 (BEAKER) (test code = 413) POCT-GLUCOSE [id number] 22:10:11 Test Item Value Reference Range Interpretation Comments POC-GLUCOSE METER 177 mg/dL 70-110 H : TESTED A T [facility] 6720 (BEAKER) (test code = ALEXIMA Brock [facility], 1538) 50919: Group Work Program Director/Techni maikol ID = [id number] for DENTON SPARKS [id number] 21:35:43 Test Item Value Reference Range Interpretation Comments PARTIAL THROMBOPLASTIN TIME 38.3 seconds 22.5-36.0 H (BEAKER) (test code = 760) BASIC METABOLIC [id number] 19:01:24 Test Item Value Reference Range Interpretation [...] not appl icable for dialysis patien ts Group Work Program Director ID - BSPOCT-GLUCOSE [id number] 18:01:46 Test Item Value Reference Range Interpretation Comments POC-GLUCOSE METER 300 mg/dL 70-110 H : TESTED A T [facility] 6720 (BEAKER) (test code = BHAVNA Gutiérrez [facility], 1538) 93330: Group Work Program Director/Techni maikol ID = [id number] for Yee Pantoja HIGH SENSITIVITY TROPONIN [id number] 17:14:28 Test Item Value Reference Range Interpretation Comments HIGH SENSITIVITY TROPONIN I (test 69428 pg/ml <=35 HH code = 4533787) Group Work Program Director ID - ADMINThe [employer] STAT High Sensitivity Troponin-I results should be used in conjunction with other diagnostic information such as ECG, clinical observations and information, and patientsymptoms to aid in the diagnosis of ME.Group Work Program Director ID - [id number] 14:33:25 Test Item Value Reference Range Interpretation Comments PARTIAL THROMBOPLASTIN TIME 58.6 seconds 22.5-36.0 H (BEAKER) (test code = 760) POCT-GLUCOSE [id number] 11:32:29 Test Item Value Reference Range Interpretation Comments POC-GLUCOSE METER 194 mg/dL 70-110 H : TESTED A T [facility] 6720 (BEAKER) (test code = [place], 1538) 77441: Group Work Program Director/Techni maikol ID = [id number] for Yee Pantoja RAD, CHEST, 1 VIEW, NON [id number] 10:55:00Reason for exam:->CHF/Pulm [facility] : 1950 Sex: MFINAL REPORT INDICATION: CHF/Pulm edema COMPARISON: None TECHNIQUE: Single frontal view of the chest. FINDINGS: Lines, tubes, and devices: None.Lungs and pleura: Right lower lung airspace opacities. No pneumothorax.Heart and mediastinum: Normal heart size. Unremarkable mediastinal contours.Osseous structures: No acute abnormality. Mild spondylosis and facet arthropathy are present within the spine.Other: None. IMPRESSION: Right lower lung airspace opacities, which may represent pneumonia or atelectasis. Signed: Collette Chester Verified Date/Time: 08/12/2022 10:55:02 Reading Location: [address] Reading Room Electronically signed by: COLLETTE CHESTER MD on08/12/2022 10:55 AMHEMOGLOBIN [id number] 10:17:54 Test Item Value Reference Range Interpretation Comments HEMOGLOBIN A1C 7.0 % See_Comment H [Automated m essage] [facility]ROPHORESIS ([facility]) The system which (test code = 3811) generated this result transmitted ref erence range: <=5.6%. The reference range was not used to int erpret this result as normal/abnormal . "The A1c is measured using a [facility]-certified method. HbA1c value equal to or greater than 6.5% as thediagnosis cutoff for diabetes. An HbA1c value of 5.7- 6.4% indicates increased risk for diabetes (prediabetes)."Group Work Program Director ID - ADMPOCT- GLUCOSE [id number] 08:14:38 Test Item Value Reference Range Interpretation Comments POC-GLUCOSE METER 249 mg/dL 70-110 H : [facility]) (test code = [place], 1538) 62666: Group Work Program Director/Techni maikol ID = [id number] for Yee Pantoja HIGH SENSITIVITY TROPONIN [id number] 06:02:40 Test Item Value Reference Range Interpretation Comments HIGH SENSITIVITY TROPONIN I (test > pg/ml <=35 code = 6332455) Group Work Program Director ID - ADMINThe [employer] STAT High Sensitivity Troponin-I results should be used in conjunction with other diagnostic information such as ECG, clinical observations and information, and patientsymptoms to aid in the diagnosis of ME.Group Work Program Director ID - ADMINBASIC METABOLIC [id number] 05:00:15 Test Item Value Reference Range Interpretation [...] not appl icable for dialysis patien ts Group Work Program Director ID - ADMINHEPATIC FUNCTION [id number] 05:00:15 Test Item Value Reference Range Interpretation [...] Specimen slightly (test code = 347) hemolyzed Group Work Program Director ID - [id number] 05:00:14 Test Item Value Reference Range Interpretation Comments MAGNESIUM (BEAKER) 2.2 mg/dL 1.6-2.6 Specimen slightly (test code = 627) hemolyzed Group Work Program Director ID - [id number] 04:54:01 Test Item Value Reference Range Interpretation [...] (BEAKER) (test code = 413) Strep pneumoniae [id number] 01:08:51 Test Item Value Reference Range Interpretation Comments Strep pneumoniae Presumptive negative Presumptive Antigen (test code = [place] [address]-8) pneumonia - see pneumococcal comment pneumonia - [...] test. Lab Interpretation Normal (test code = 01389-7) [facility] [id number] 01:08:51 Test Item Value Reference Range Interpretation Comments STREP PNEUMONIAE Presumptive negative Presumptive negative ANTIGEN (ANYAAKER) for pneumococcal for pneumococcal (test code = 1615) pneumonia - see pneumonia - see comment commen Presumptive negative for pneumococcal pneumonia, suggesting no current or recent pneumococcal infection. Infection due to S. pneumoniae cannot be ruled out since the antigen present in the sample may be below the detection limit of the test. Legionella antigen, [id number] 01:07:14 Test Item Value Reference Range Interpretation Comments Legionella Urine Negative - see Negative Negative for L. Antigen (test code = comment pneumop gilson 67200-2) serogroup 1 antigen, sugges ting no recent or current infecti on with this serogroup. Legionellosis cannot be ruled out since other serogroups and species may cau se disease. Lab Interpretation Normal (test code = 98036-2) [facility]LLA ANTIGEN, [id number] 01:07:14 Test Item Value Reference Range Interpretation [...] may cau se disease. HIGH SENSITIVITY TROPONIN [id number] 00:35:38 Test Item Value Reference Range Interpretation Comments HIGH SENSITIVITY TROPONIN I (test > pg/ml <=35 code = 5765020) Group Work Program Director ID - ADMINThe [employer] STAT High Sensitivity Troponin-I results should be used in conjunction with other diagnostic information such as ECG, clinical observations and information, and patientsymptoms to aid in the diagnosis of ME.Group Work Program Director ID - ADMINLACTIC ACID, [id number] 23:56:19 Test Item Value Reference Range Interpretation Comments LACTATE BLOOD VENOUS 2.05 mmol/L 0.50-2.20 Specime n slightly (2) ([facility]) (test hemolyzed code = 2872) Group Work Program Director ID - [id number] 23:36:18 Test Item Value Reference Range Interpretation Comments PARTIAL THROMBOPLASTIN TIME 37.7 seconds 22.5-36.0 H (BEAKER) (test code = 760) HEPATITIS PANEL, [id number] 23:34:58 Test Item Value Reference Range Interpretation Comments HEPATITIS A IGM ANTIBODY (BEAKER) Nonreactive Nonreactive (test code = 498) HEPATITIS B CORE IGM ANTIBODY Nonreactive Nonreactive (BEAKER) (test code = 645) HEPATITIS C ANTIBODY (BEAKER) Nonreactive Nonreactive (test code = 367) HEPATITIS B SURFACE ANTIGEN (2) Nonreactive Nonreactive (BEAKER) (test code = 2585) Group Work Program Director ID - ADMINBLOOD GAS, [id number] 23:24:10 Test Item Value Reference Range Interpretation [...] (BEAKER) (test code = 1819) 32.0 LIPID [id number] 23:12:56 Test Item Value Reference Range Interpretation [...] Borderline 130-159 High 160-189 Very High >=190 Group Work Program Director ID - [id number] 23:12:56 Test Item Value Reference Range Interpretation Comments MAGNESIUM (BEAKER) (test code = 2.5 mg/dL 1.6-2.6 627) Group Work Program Director ID - ADMINCT, BRAIN, WITHOUT [id number] 22:07:00Reason for Exam (Free Text) - Addiitonal information for Radiologist->evaluate for hemorrhage seen on OSH imaging [facility] : 1950 Sex: MFINAL [...] Angélica Palomino MDReport Verified Date/Time: 08/11/2022 22:07:19 [id number] 22:04:33 Test Item Value Reference Range Interpretation Comments PROCALCITONIN (BEAKER) (test 120.17 ng/mL <0.05 HH code = 3036) SEPSIS RISK (ng/mL)Low: 0.05-0.50Intermediate: 0.51-2.00High: >=2.01TSH/FREE T4 IF [id number] 21:59:30 Test Item Value Reference Range Interpretation Comments THYROID STIMULATING HORMONE 1.090 uIU/mL 0.350-4.940 (BEAKER) (test code = 772) Group Work Program Director ID - ADMINCT, CHEST, WITHOUT [id number] 21:59:00Unlisted Reason for Exam - Click Yes and Enter Reason Below->No [facility] : 1950 Sex: MFINAL [...] component of interstitial edema. Signed: Morales Pérez MDRepputnam county memorial hospital Verified Date/Time: 08/11/2022 21:59:12 HEPATIC FUNCTION PANEL [...] code = 122 U/L 6-55 H 347) Group Work Program Director ID - ADMINLACTIC ACID, [id number] 21:32:22 Test Item Value Reference Range Interpretation Comments LACTATE BLOOD VENOUS 2.26 mmol/L 0.50-2.20 H Specime n slightly (2) (BEAKER) (test hemolyzed code = 2872) Group Work Program Director ID - [id number] 21:26:29 Test Item Value Reference Range Interpretation Comments PARTIAL THROMBOPLASTIN TIME 41.5 seconds 22.5-36.0 H (BEAKER) (test code = 760) HIGH SENSITIVITY TROPONIN [id number] 20:50:31 Test Item Value Reference Range Interpretation Comments HIGH SENSITIVITY TROPONIN I (test > pg/ml <=35 code = 3345972) Group Work Program Director ID - DBThe [employer] STAT High Sensitivity Troponin-I results should be used in conjunctionwith other diagnostic information such as ECG, clinical observations and information, and patient symptoms to aid in the diagnosis of ME.Group Work Program Director ID - DB(CELLAVISION MANUAL DIFF)2022-08-11 20:38:47 [...] CONCENTRATION Adequate (CELLAVISION)(BEAKER) (test code = 3438) Group Work Program Director ID - Luci Mckinney comments: Slide comments:CBC W/PLT COUNT & AUTO [id number] 20:38:46 Test Item Value Reference Range Interpretation [...] pg/mL 0-100 H (test code = 700) Group Work Program Director ID - DBBASIC METABOLIC [id number] 20:19:11 Test Item Value Reference Range Interpretation [...] 358) GLUCOSE RANDOM 174 mg/dL 70-105 H (BEAKER) (test code = 652) CALCIUM (NEO) 8.7 [...] not appl icable for dialysis patien ts Group Work Program Director ID - DB Notes Date/Time Note Provider Source 2022-08-24 15:32:46-00:00 BRADY JUAREZ [facility]/PROCEDURE REPORT [facility] FACILITY: [facility] Billing #: [id number] Room: [place] [address] MR #: [id number] : 1950 DATE OF PROCEDURE: 08/24/2022 SURGEON: Brady Juarez MD PREOPERATIVE DIAGNOSES: Severe coronary artery d isease, severe aortic stenosis, trileaflet valve, atrial fibril lation and [id number] congestive heart failure. POSTOPERATIVE DIAGNOSES: Severe coronary artery disease, severe aortic stenosis, trileaflet valve, atrial fibrillation and ppefj-[id number]-fagfmnk congestive heart failure. PROCEDURES PERFORMED: Aortic valve [...] appendage li gation with an AtriClip external. VACUUM FRAME OPERATOR: Vern Kumari MD. ANESTHETIC: General endotracheal. HISTORY: [...] indicated for cardiac surgical procedure s. ADILSON/MODL /[id number] Electronically signed by: BRADY JUAREZ at 13:05:59.000
--- NOTE | 2022-11-14 10:15 | EDPHYS ---
Physician Documentation [facility] Name: Smooth Ordaz Age: 72 yrs Sex: Male : 1950 Arrival Date: 11/14/2022 Time: 09:20 Bed IW1 Private MD: Woody Acosta ED Physician Jung Nelson HPI: 11/14 10:17 This 72 yrs old Male presents to ER via Ambulatory with complaints of elbow swelling. snw 10:17 Onset: The symptoms/episode began/occurred 2 week(s) ago, got better with keflex and snw avoidance of pressure to area, scraped along table and area began swelling again. Associated signs and symptoms: Pertinent positives: right elbow swelling and mild tenderness. as noted. It is unknown whether or not the patient has recently seen a physician. Historical: - PMHx: 09:55 Hypertensive disorder; iw ROS: 10:17 Constitutional: Negative for fever, chills, and weight loss, Eyes: Negative for injury, snw pain, redness, and discharge, ENT: Negative for injury, pain, and discharge, Neck: Negative for injury, pain, and swelling, Cardiovascular: Negative for chest pain, palpitations, and edema, Respiratory: Negative for shortness of breath, cough, wheezing, and pleuritic chest pain, Abdomen/GI: Negative for abdominal pain, nausea, vomiting, diarrhea, and constipation, Back: Negative for injury and pain, : Negative for injury, bleeding, discharge, and swelling, Skin: Negative for injury, rash, and discoloration, Neuro: Negative for headache, weakness, numbness, tingling, and seizure, Psych: Negative for depression, anxiety, suicide ideation, homicidal ideation, and hallucinations. 10:17 MS/extremity: Positive for swelling, tenderness, of the right elbow. Exam: 10:17 Constitutional: This is a well developed, well nourished patient who is awake, alert, snw and in no acute distress. Head/Face: Normocephalic, atraumatic. Eyes: Pupils equal round and reactive to light, extra-ocular motions intact. Lids and lashes normal. Conjunctiva and sclera are non-icteric and not injected. Cornea within normal limits. Periorbital areas with no swelling, redness, or edema. ENT: Nares patent. No nasal discharge, no septal abnormalities noted. Tympanic membranes are normal and external auditory canals are clear. Oropharynx with no redness, swelling, or masses, exudates, or evidence of obstruction, uvula midline. Mucous membranes moist. Neck: Trachea midline, no thyromegaly or masses palpated, and no cervical lymphadenopathy. Supple, full range of motion without nuchal rigidity, or vertebral point tenderness. No Meningismus. Chest/axilla: Normal chest wall appearance and motion. Nontender with no deformity. No lesions are appreciated. Cardiovascular: Regular rate and rhythm with a normal S1 and S2. No gallops, murmurs, or rubs. Normal PMI, no JVD. No pulse deficits. Respiratory: Lungs have equal breath sounds bilaterally, clear to auscultation and percussion. No rales, rhonchi or wheezes noted. No increased work of breathing, no retractions or nasal flaring. Abdomen/GI: Soft, non-tender, with normal bowel sounds. No distension or tympany. No guarding or rebound. No evidence of tenderness throughout. Back: No spinal tenderness. No costovertebral tenderness. Full range of motion. Skin: Warm, dry with normal turgor. Normal color with no rashes, no lesions, and no evidence of cellulitis. Neuro: Awake and alert, GCS 15, oriented to person, place, time, and situation. Cranial nerves II-XII grossly intact. Motor strength 5/5 in all extremities. Sensory grossly intact. Cerebellar exam normal. Normal gait. Psych: Awake, alert, with orientation to person, place and time. Behavior, mood, and affect are within normal limits. 10:17 Musculoskeletal/extremity: Extremities: grossly normal except: noted in the right elbow: swelling, tenderness. Vital Signs: 09:53 BP 182 / 102; Pulse 95; Resp 16; Temp 98.1; Pulse Ox 100% on R/A; Weight 94.35 kg; iw Height 6 ft. 0 in. ; 09:53 Body Mass Index 28.21 (94.35 kg, 182.88 cm) iw MDM: 09:34 Patient medically screened. snw 10:14 Differential diagnosis: viral Infection, bacterial infection, Bursitis. Data reviewed: snw vital signs, nurses notes. Management of patient was discussed with the following: Dr. Nelson. Counseling: I had a detailed discussion with the patient and/or guardian regarding: the historical points, exam findings, and any diagnostic results supporting the discharge/admit diagnosis, the presence of at least one elevated blood pressure reading (>120/80) during this emergency department visit, the need for outpatient follow up, for definitive care, to return to the emergency department if symptoms worsen or persist or if there are any questions or concerns that arise at home. Special discussion: I have referred the patient to see his PCP for further evaluation of high blood pressure. Based on the history and exam findings, there is no indication for further emergent testing or inpatient evaluation. I discussed with the patient/guardian the need to see the orthopedic surgeon for further evaluation of the symptoms. I discussed with the patient/guardian the need to see the primary care provider for further evaluation of the symptoms. Administered Medications: 10:14 CANCELLED (Other Intervention Used): Trimethoprim-Sulfamethoxazole PO (160 mg-800 mg snw (DS) 1 tablet PO once 10:35 Drug: Ciprofloxacin PO 500 mg Route: PO; iw Disposition Summary: 11/14/22 10:14 Discharge Ordered Location: Home snw Condition: Stable snw Diagnosis - Olecranon bursitis, right elbow snw Followup: snw - With: Woody Acosta MD - When: 5 - 6 days - Reason: Recheck today's complaints, Continuance of care, Re-evaluation by your physician Followup: snw - With: Emergency Department - When: As needed - Reason: Worsening of condition Discharge Instructions: - Discharge Summary Sheet snw - Elbow Bursitis snw Forms: - Medication Reconciliation Form snw - Thank You Letter snw - Antibiotic Education snw - Prescription Opioid Use snw Prescriptions: - Bactrim DS 800-160 mg Oral Tablet - take 1 tablet by ORAL route every 12 hours for 10 days; 20 tablet; Refills: 0, casey Product Selection Permitted Signatures: Bambi Ignacio FNP-C [facility] [facility] Sridevi Vasquez RN RN iw Corrections: (The following items were deleted from the chart) 10:14 10:13 Trimethoprim-Sulfamethoxazole PO (160 mg-800 mg (DS) 1 tablet PO once ordered. snwsnw
--- NOTE | 2022-11-14 10:15 | ER ---
Nurse's Notes [facility] Name: Smooth Ordaz Age: 72 yrs Sex: Male : 1950 Arrival Date: 11/14/2022 Time: 09:20 Bed IW1 Private MD: Woody Acosta Diagnosis: Olecranon bursitis, right elbow Presentation: 11/14 09:53 Chief complaint: Patient states: right elbow swelling since beginning of October, iw completed a round of antibiotics, the swelling was getting better and the he hit it on something this morning and made the swelling worse. Coronavirus screen: At this time, the client does not indicate any symptoms associated with coronavirus-19. Ebola Screen: Patient negative for fever greater than or equal to 101.5 degrees Fahrenheit, and additional compatible Ebola Virus Disease symptoms Patient denies exposure to infectious person. Patient denies travel to an Ebola-affected area in the 21 days before illness onset. No symptoms or risks identified at this time. Initial Sepsis Screen: Does the patient meet any 2 criteria? No. Patient's initial sepsis screen is negative. Does the patient have a suspected source of infection? No. Patient's initial sepsis screen is negative. Risk Assessment: Do you want to hurt yourself or someone else? Patient reports no desire to harm self or others. Onset of symptoms was November 14, 2022. 09:53 Method Of Arrival: Ambulatory iw 09:53 Acuity: ANAYELI 4 iw Historical: - PMHx: 09:55 Hypertensive disorder; iw Vital Signs: 09:53 BP 182 / 102; Pulse 95; Resp 16; Temp 98.1; Pulse Ox 100% on R/A; Weight 94.35 kg; iw Height 6 ft. 0 in. ; 09:53 Body Mass Index 28.21 (94.35 kg, 182.88 cm) ED Course: 09:22 Patient arrived in ED. am2 09:22 Beni Zuluaga DO is Private Physician. am2 09:22 Beni Zuluaga DO is Private Physician. am2 09:22 Woody Acosta MD is Private Physician. am2 09:33 [facility] snw 09:33 Jung Nelson MD is Attending Physician. snw 09:55 Triage completed. iw 09:56 Arm band placed on Patient placed. iw 10:13 Woody Acosta MD is Referral Physician. snw 10:15 Sridevi Vasquez, RN is Primary Nurse. iw 11/15 07:46 PHCP role handed off by Bambi Ignacio FNP-C iw 07:46 Primary Nurse role handed off by Sridevi Vasquez, EDGARD iw Administered Medications: 11/14 10:14 CANCELLED (Other Intervention Used): Trimethoprim-Sulfamethoxazole PO (160 mg-800 mg snw (DS) 1 tablet PO once 10:35 Drug: Ciprofloxacin PO 500 mg Route: PO; iw Outcome: 10:14 Discharge ordered by . snw 10:37 Discharged to home ambulatory. iw 10:37 Condition: good 10:37 Discharge instructions given to patient, Instructed on discharge instructions, follow up and referral plans. medication usage, Demonstrated understanding of instructions, follow-up care, medications, Prescriptions given X 1. 10:37 Patient left the ED. iw 11/15 08:02 Patient left the ED. iw Signatures: Bambi Ignacio FNP-C [employer]-[facility] Sridevi Vasquez, RN RN iw Eden Condon
[2022-11-14] MEDS ORDERED: CIPROFLOXACIN HCL 500 MG TAB ONE (10:38)
[2022-11-14 10:41] VITALS: BP 182/102; TEMP 98.1; O2SAT 100
== END 2022-11-15 08:02 | disposition home or self-care (01) ==
LOC: ER 09:20
DX: M70.21 Olecranon bursitis, right elbow (principal); I10 Essential (primary) hypertension; M79.89 Other specified soft tissue disorders
CPT/HCPCS: 99283

== ENCOUNTER 2022-11-27 13:16 | Emergency (ER) | payer OTHER ==
--- OUTSIDE RECORDS SUMMARY | 2022-11-27 13:26 | XMS REPORT | Continuity of Care Document ---
:1950 Author Organization [facility] t Address [address] [facility]. [address] [place] [address] Care Team Providers Name Role Phone Asked, No Pcp Primary Care Physician Unavailable MORALES PÉREZ Attending Clinician Unavailable DONITA RUDD Attending Clinician Unavailable Whitney MCCURDY, Alfredo Moise Attending Clinician Isha Nunez MD Attending Clinician JOAQUIN ROLLINS Attending Clinician Unavailable MILY FULTON Attending Clinician Unavailable JERRELL VILLAFUERTE Attending Clinician Unavailable Brady Juarez MD Attending Clinician Aubrey Moore MD Attending Clinician Basilio Ryan MD Attending Clinician Unavailable Alfredo Olson MD Attending Clinician SHARON CLARK Admitting Clinician Unavailable ISHA NUNEZ Admitting Clinician Unavailable Payers Payer Name Policy Type Policy Number Effective Date Expiration Date S kristin MEDICARE A B [id number] 2013 00:00:00 GENERIC MEDICARE [id number] 2019 SUPPLEMENT 00:00:00 Problems Condition Condition Condition [...] post-opera Nathalia kes tive pain tive pain [facility] Acute Acute Disease Active [facility] [...] Start Date Stop Date Source Natural mother Sabianism [facility] Natural father [facility] Social History Social Habit Start Date Stop Date Quantity Comments Source Gender identity [facility] Alcohol intake 2022-10-14 2022-10-14 Lifetime Sabianism 00:00:00 00:00:00 non-drinker Hospital (finding) History of Social 2022-10-14 2022-10-[address] function 00:00:00 00:00:00 Hospital Tobacco use and 2022-09-28 2022-09-28 Smokeless Sabianism exposure 00:00:00 00:00:00 tobacco non-user Hospital Exposure to 2022-08-01 2022-08-[address] [facility] SARS-CoV-2 (event) 00:00:00 19:00:00 [facility] Sex Assigned At [birth year] Sabianism 00:00:00 00:00:00 Hospital Smoking Status Start Date Stop Date Source Never smoked tobacco Sabianism H ospital Medications Ordered Filled Start Stop [...] ORAL) 58 daily. l losartan 2022-0 Yes [id number] 100mg QD Take 1 M ethodi (COZAAR) 5-[address] 100 MG 00:00: (100 mg Hospita tablet 00 total) by l mouth daily. metoprolol 2022-0 Yes [id number] 50mg QD Take 1 [facility] succinate 5-24 tablet (50 st XL 00:00: mg total) Hospita (TOPROL-XL) 00 by mouth l 50 mg 24 hr daily. tablet furosemide 202-0 Yes [id number] 20mg Q24H Take 1 Method[facility] (LASIX) 20 5-24 tablet (20 st mg tablet 00:00: mg total) Hos jessica 00 by mouth l daily as needed (leg swelling). losartan 2022-0 Yes [id number] 100mg QD Take 1 M ethodi (COZAAR) 5-[address] 100 MG 00:00: (100 mg Hospita tablet 00 total) by l mouth daily. metoprolol 2022-0 Yes [id number] 50mg QD Take 1 Methodi succinate 5-24 tablet (50 st XL 00:00: mg total) Hospita (TOPROL-XL) 00 by mouth l 50 mg 24 hr daily. tablet furosemide 3-0 Yes [id number] 20mg Q24H Take 1 Methodi (LASIX) 20 5-24 tablet (20 st mg tablet 00:00: mg total) Hos jessica 00 by mouth l daily as needed (leg swelling). losartan 2022-0 Yes [id number] 100mg QD Take 1 M ethodi (COZAAR) 5-[address] 100 MG 00:00: (100 mg Hospita tablet 00 total) by l mouth daily. metoprolol 2023-0 Yes [id number] 50mg QD Take 1 Methodi succinate 5-24 tablet (50 st XL 00:00: mg total) Hospita (TOPROL-XL) 00 by mouth l 50 mg 24 hr daily. tablet furosemide 2022-0 Yes [id number] 20mg Q24H Take 1 Methodi (LASIX) 20 5-24 tablet (20 st mg tablet 00:00: mg total) Hos jessica 00 by mouth l daily as needed (leg swelling). atorvastati 2022-0 Yes [id number] 40mg QD Take 1 Methodi n (LIPITOR) 5-08 tablet (40 st 40 mg 00:00: mg total) Hospita tablet 00 by mouth l nightly. atorvastati 2022-0 Yes [id number] 40mg QD Take 1 Methodi n (LIPITOR) 5-08 tablet (40 st 40 mg 00:00: mg total) Hospita tablet 00 by mouth l nightly. atorvastati 2022-0 Yes [id number] 40mg QD Take 1 Methodi n (LIPITOR) 5-08 tablet (40 st 40 mg 00:00: mg total) Hospita tablet 00 by mouth l nightly. losartan 2022-0 2022- No [id number] 50mg QD Take 1 M ethodi (COZAAR) 50 5-08 05-24 tablet (50 s t MG tablet 00:00: 00:00 mg total) Ho spita 00 :00 by mouth l daily. metoprolol 0 2022- No [id number] 25mg QD Take 1 Methodi succinate 5-08 05-24 tablet (25 st XL 00:00: 00:00 mg total) Hospita (TOPROL-XL) 00 :00 by mouth l 25 mg 24 hr daily. tablet losartan 0 2022- No [id number] 50mg QD Take 1 M ethodi (COZAAR) 50 5-08 05-24 tablet (50 s t MG tablet 00:00: 00:00 mg total) Ho spita 00 :00 by mouth l daily. metoprolol 2022-0 2022- No [id number] 25mg QD Take 1 Methodi succinate 5-08 05-24 tablet (25 st XL 00:00: 00:00 mg total) Hospita (TOPROL-XL) 00 :00 by mouth l 25 mg 24 hr daily. tablet losartan 2022-0 2022- No [id number] 50mg QD Take 1 M ethodi (COZAAR) 50 5-12 26-24 tablet (50 s t MG tablet 00:00: 00:00 mg total) Ho spita 00 :00 by mouth l daily. metoprolol 2022- No [id number] 25mg QD Take 1 Methodi succinate -12 26-24 tablet (25 st XL 00:00: 00:00 mg total) Hospita (TOPROL-XL) 00 :00 by mouth l 25 mg 24 hr daily. tablet Ferrocite 0 Yes 1{tbl} QD Take 1 Meth allyson Plus 106 mg 4-[address] iron- 1 mg 00:00: mouth Hospit a tablet 00 daily with l breakfast. Ferrocite 2022-0 Yes 1{tbl} QD Take 1 Meth allyson Plus 106 mg 4-[address] iron- 1 mg 00:00: mouth Hospit a tablet 00 daily with l breakfast. Ferrocite 2022-0 Yes 1{tbl} QD Take 1 Meth allyson [...] tablet 00 :00 BEDTIME l NEEDED traZODone 2022-2022- No TAKE 1/2 Met hodi (DESYREL) 4-20 -[address] 50 MG 00:00: 00:00 TABLET AT Hospit a tablet 00 :00 BEDTIME l NEEDED metoprolol 2022- No TAKE 1 Meth allyson succinate 4-20 -[address] XL 00:00: 00:00 MOUTH ONCE Hospit a (TOPROL-XL) 00 :00 DAILY AT l 25 mg 24 hr 6AM tablet losartan 2022- No 25mg QD Take 1 Method i (COZAAR) 25 4-20 -08 tablet (25 s t MG tablet 00:00: 00:00 mg total) Ho spita 00 :00 by mouth l daily. gabapentin 2022-0 2022- No 100mg Q.5D Take 1 Met hodi (NEURONTIN) 4-20 05-[address] 100 mg 00:00: 00:00 (100 mg Hospita capsule 00 :00 total) by l mouth 2 (two) times a day. furosemide 2022-2022- No TAKE 1 Meth [facility] (LASIX) 20 4-20 05-[address] mg tablet 00:00: 00:00 MOUTH AT 8 H ospita 00 :00 AM AND AT l 3 PM FeroSuL 325 2022-0 2022- No 325mg QD Take 1 Me thodi mg (65 mg 4-20 05-[address] iron) 00:00: 00:00 (325 mg Hospita tablet 00 :00 total) by l mouth daily. metoprolol 2022-2022- No TAKE 1 Meth [facility] succinate 4-20 05-[address] XL 00:00: 00:00 MOUTH ONCE Hospit a (TOPROL-XL) 00 :00 DAILY AT l 25 mg 24 hr 6AM tablet losartan 2022-0 2022- No 25mg QD Take 1 Method i (COZAAR) 25 4-20 05-08 tablet (25 s t MG tablet 00:00: 00:00 mg total) Ho spita 00 :00 by mouth l daily. potassium 2022-0 2022- No 10meq Q.5D Take 1 Meth allyson chloride 4-20 05-08 tablet (10 st (KLOR-CON) 00:00: 00:00 mEq total) Hospita 10 MEQ CR 00 :00 by mouth 2 l tablet (two) times a day. gabapentin 2022-0 2022- No 100mg Q.5D Take 1 Met hodi (NEURONTIN) 4-20 05-[address] 100 mg 00:00: 00:00 (100 mg Hospita capsule 00 :00 total) by l mouth 2 (two) times a day. furosemide 2022-2022- No TAKE 1 Meth ally[facility] (LASIX) 20 4-20 05-[address] mg tablet 00:00: 00:00 MOUTH AT 8 H ospita 00 :00 AM AND AT l 3 PM potassium 2022022- No 10meq Q.5D Take 1 Meth allyson chloride 4-20 05-08 tablet (10 st (KLOR-CON) 00:00: 00:00 mEq total) Hospita 10 MEQ CR 00 :00 by mouth 2 l tablet (two) times a day. atorvastati 2022- No 40mg QD Take 1 Met hodi n (LIPITOR) 4-20 05-08 tablet (40 s t 40 mg 00:00: 00:00 mg total) Hospit a tablet 00 :00 by mouth l nightly. nystatin 2022- No APPLY Methodi (MYCOSTATIN 4-20 05-[address] ) 100,000 00:00: 00:00 TOPICALLY Ho spita unit/gram 00 :00 TO l powder AFFECTED AREA TWICE DAILY atorvastati 2022- No 40mg QD Take 1 Met hodi n (LIPITOR) 4-20 05-08 tablet (40 s t 40 mg 00:00: 00:00 mg total) Hospit a tablet 00 :00 by mouth l nightly. nystatin 2022- No APPLY Method[facility] (MYCOSTATIN 4-20 05-[address] ) 100,000 00:00: 00:00 [...] QD Take 1 Met hodi n (LIPITOR) 09-10- tablet (40 s t 40 mg 00:00: 00:00 mg total) Hospit a tablet 00 :00 by mouth l nightly. nystatin 2022- No APPLY [facility] (MYCOSTATIN 09-10- POWDER st ) 100,000 00:00: 00:00 TOPICALLY Ho spita unit/gram 00 :00 TO l powder AFFECTED AREA TWICE DAILY FeroSuL 325 2022- No 325mg QD Take 1 Me thodi mg (65 mg 09-10-[address] iron) 00:00: 00:00 (325 mg Hospita tablet 00 :00 total) by l mouth daily. polyethylen Yes 17g QD Take [address] e glycol 4-12 by mouth [facility] (GLYCOLAX) 00:00: in the Medic al 17 gram 00 morning. Center packet aspirin 2023- Yes 81mg QD Take 1 [facility] (ECOTRIN) -04 26-12 tablet (81 st 81 MG 00:00: 04:59 mg total) Hospit a enteric 00 :00 by mouth l coated daily. tablet aspirin 2023- Yes 81mg QD Take 1 [facility] (ECOTRIN) 4- 04-12 tablet (81 st 81 MG 00:00: 04:59 mg total) Hospit a enteric 00 :00 by mouth l coated daily. tablet aspirin 2023- Yes 81mg QD Take 1 [facility] (ECOTRIN) -04 26-12 tablet (81 st 81 MG 00:00: 04:59 [...] No 200mg Take 1 Met hodi (PACERONE) 09-02-[address] 200 MG 00:00: 00:00 (200 mg Hospita tablet 00 :00 total) by l mouth. amIODarone 2022-2022- No 200mg Take 1 Met [facility]odi (PACERONE) 09-02- tablet st 200 MG 00:00: 00:00 (200 mg Hospita tablet 00 :00 total) by l mouth. amIODarone 2022- No 200mg Take 1 Met [facility]odi (PACERONE) 09-02-[address] 200 MG 00:00: 00:00 (200 [...] QD Take [address] [facility] [facility] (LIPITOR) 4-11 04-10 tablet (40 L ukes 40 MG 00:00: 23:59 mg total) Medica l tablet 00 :00 by mouth Center nightly. senna-docus 2023- Yes 1{tbl} Q.5D Take [address] ate -11 04-10 tablet by [facility] (SENOKOT S) 00:00: [...] Q.5D Take [address] chloride SA -11 04-10 tablet (20 L ukes (K-DUR,KLOR 00:00: 23:59 mEq total) Medical -CON-M) 20 00 :00 by mouth Cente r MEQ tablet in the morning and 1 tablet (20 mEq total) before bedtime. furosemide 2023- Yes 40mg Take [address] (LASIX) 40 4-11 04-10 tablet (40 Nathalia kes MG tablet [...] :00 l 8.6-50 mg per tablet sennosides- 2022- No 1{tbl} Take 1 M ethodi docusate 09-[address] sodium 00:00: 00:00 mouth. Hospita (SENOKOT-S) 00 :00 l 8.6-50 mg per tablet sennosides- 2022- No 1{tbl} Take 1 M [...] Systolic blood 2022-10-14 14:42:00 176 mm[Hg] [facility] pressure Diastolic blood 2022-10-14 14:42:00 107 mm[Hg] [facility] pressure Heart rate 2022-10-14 14:42:00 97 /min [facility] Res[facility] rate 2022-10-14 14:42:00 12 /min [facility] Body height 2022-10-14 14:42:00 182.9 [facility] weight 2022-10-14 14:42:00 95.255 kg [facility] BMI 2022-10-14 14:42:00 28.48 kg/m2 [facility] Oxygen saturation in 2022-10-14 14:42:00 98 /min [facility] Arterial blood by Pulse oximetry Systolic blood 2022-09-02 08:20:00 121 mm[Hg] [facility] Diastolic blood 2022-09-02 08:20:00 58 mm[Hg] [facility] Heart rate 2022-09-02 08:20:00 81 /min [facility] Respiratory rate 2022-09-02 07:48:00 18 /min [facility] Oxygen saturation in 2022-09-02 07:48:00 96 /min [facility] Arterial blood by Medical Ce nter Pulse oximetry Body temperature 2022-09-02 07:00:00 35.94 [place] [facility] Body weight 2022-09-02 06:21:00 98.476 kg [facility] BMI 2022-09-02 06:21:00 29.44 kg/m2 [facility] Body height 2022-08-11 22:00:00 182.9 cm [facility] Procedures Procedure Date / Time Performing Clinician Source Performed TRANSTHORACIC 2022-10-20 14:45:37 Alfredo Olson spital ECHOCARDIOGRAM COMPLETE W CONT STRAIN 3D IF NEEDED POCT-GLUCOSE METER 2022-09-02 08:04:00 Jerrell Villafuerte [facility] HEPATIC FUNCTION PANEL 2022-09-02 05:16:00 Cher Rebollar [facility] CBC (HEMOGRAM ONLY) 2022-09-02 05:16:00 Kely-[facility] BASIC METABOLIC PANEL 2022-09-02 05:16:00 Kely-Smart, [facility] MAGNESIUM 2022-09-02 05:16:00 Kely-[facility] POCT-GLUCOSE METER 2022-09-01 21:09:00 Jerrell Villafuerte [facility] POCT-GLUCOSE METER 2022-09-01 17:08:00 [facility]te[facility] PO[facility]SE [facility] 2022-09-01 12:36:00 Villafuerte Jerrell [facility] POCT-GLUCOSE METER 2022-09-01 07:11:00 [facility] 2022-09-01 05:17:00 Cher Rebollar [facility] CBC (HEMOGRAM ONLY) 2022-09-01 05:17:00 Kely-[facility] BASIC METABOLIC PANEL 2022-09-01 05:17:00 [facility] 2022-09-01 05:17:00 [facility] PO[facility]SE METER 2022-08-31 17:20:00 Villafuerte Jerrell [facility] POCT-GLUCOSE METER 2022-08-31 12:31:00 Geri [facility] POCT-GLUCOSE METER 2022-08-31 07:12:00 Santiago Chavez [facility] CBC (HEMOGRAM ONLY) 2022-08-31 05:00:00 Kely-[facility] HEPATIC FUNCTION PANEL 2022-08-31 04:59:[address] [facility] BASIC METABOLIC PANEL 2022-08-31 04:59:00 Kely-[facility] MAGNESIUM 2022-08-31 04:59:00 Kely-[facility] POCT-GLUCOSE METER 2022-08-30 17:13:00 [facility] POCT-GLUCOSE METER 2022-08-30 12:12:00 JoudahSantiago prabhakar [facility] POCT-GLUCOSE METER 2022-08-30 08:06:00 Joudavaishali Santiago [facility] HEPATIC FUNCTION PANEL 2022-08-30 06:06:00 Cher Rebollar [facility] BASIC METABOLIC PANEL 2022-08-30 06:06:00 [facility] ONLY[facility] 2022-08-30 06:06:00 [facility] MAGNESIUM 2022-08-30 06:06:00 [facility] POCT-GLUCOSE METER 2022-08-29 19:47:00 Kathy Santiago [facility] POCT-GLUCOSE METER 2022-08-29 17:17:00 Joudah Santiago [facility] POCT-GLUCOSE METER 2022-08-29 11:59:00 Kathy Santiago [facility] POCT-GLUCOSE METER 2022-08-29 07:13:00 Lawson Vernon [facility] HEPATIC FUNCTION PANEL 2022-08-29 06:07:00 [facility] BASIC METABOLIC PANEL 2022-08-29 06:07:00 [facility] CBC (HEMOGRAM ONLY) 2022-08-29 06:07:00 [facility] MAGNESIUM 2022-08-29 06:07:00 [facility] POCT-GLUCOSE METER 2022-08-28 20:19:00 Lawson [facility] POCT-GLUCOSE METER 2022-08-28 17:22:00 Lawson Vernon [facility] B-TYPE NATRIURETIC FACTOR 2022-08-28 13:06:00 Alfredo Olson [facility] (BNP) [facility] LACTIC ACID, VENOUS 2022-08-28 13:06:00 Alfredo Olson [facility] 2D ECHO W/ DOPPLER 2022-08-28 11:13:29 Enedelia Olson [facility] (CW/PW/COLOR) [facility] POCT-GLUCOSE METER 2022-08-28 11:00:00 Lawson Vernon [facility] POCT-GLUCOSE METER 2022-08-28 07:06:00 Villafuerte [facility] HEPATIC FUNCTION PANEL 2022-08-28 06:42:[address] [facility] BASIC METABOLIC PANEL 2022-08-28 06:42:00 Octavio [facility] MAGNESIUM 2022-08-28 06:42:00 [facility] 2022-08-28 04:55:00 [facility] POCT-[facility]UCOSE METER 2022-08-27 20:59:00 [facility] POCT-GLUCOSE METER 2022-08-27 17:37:00 [facility] BASIC METABOLIC PANEL 2022-08-27 16:45:00 [facility]ST 1 VIEW PORTABLE / 2022-08-27 14:47:00 Brady Juarez [facility] POCT-GLUCOSE METER 2022-08-27 12:38:00 Geri [facility] POCT-GLUCOSE METER 2022-08-27 07:39:00 [facility] BASIC METABOLIC PANEL 2022-08-27 02:36:00 [facility] CALCIUM, IONIZED 2022-08-27 02:36:00 [facility] FUN[facility] PANEL 2022-08-27 02:36:00 [facility] LACTIC ACID, ARTERIAL 2022-08-27 02:36:00 Serangelo [facility] MAGNESIUM 2022-08-27 02:36:00 Serangelo [facility] PHOSPHORUS 2022-08-27 02:36:00 [facility] W/PLT COUNT & AUTO 2022-08-27 02:36:00 Sermillicent [facility] DIFFERENTIAL [facility] CBC W/PLT COUNT & AUTO 2022-08-27 02:36:[address] [facility] DIFFERENTIAL [facility] XR CHEST 1 VIEW PORTABLE / 2022-08-27 02:32:00 Dante Fenton [facility] FIBRINOGEN 2022-08-27 02:30:00 Columba [facility] PT/APTT 2022-08-27 02:30:00 [facility] POCT-GLUCOSE METER 2022-08-27 00:05:00 Geri Jerrell [facility] PREPARE LEUKO-REDUCED RBC 2022 23:55:00 Evy Perdomo [facility] POCT-GLUCOSE METER 2022 18:52:00 Jerrell Villafuerte [facility] BASIC METABOLIC PANEL 2022 17:10:00 [facility]prom[facility] CALCIUM, IONIZED 2022 17:10:00 [facility] s [facility] CBC (HEMOGRAM ONLY) 2022 17:10:00 Columba [facility] MAGNESIUM 2022 17:10:00 Columba [facility] PHOSPHORUS 2022 17:10:00 Columba [facility] POCT-GLUCOSE METER 2022 11:59:00 Jerrell Villafuerte [facility] OXYGEN SATURATION, 2022 08:40:00 Columba [facility] MEASURED [facility] LACTIC ACID, ARTERIAL 2022 08:40:00 [facility] OXYGEN SATURATION, 2022 06:01:00 Columba [facility] MEASURED [facility] POCT-GLUCOSE METER 2022 06:00:00 Jerrell Villafuerte [facility] BASIC METABOLIC PANEL 2022 02:33:00 [facility] BLOOD GAS, ARTERIAL 2022 02:33:00 Serangelo [facility] CALCIUM, IONIZED 2022 02:33:[address] [facility] HEPATIC FUNCTION PANEL 2022 02:33:00 Cher Rebollar [facility] FIBRINOGEN 2022 02:33:00 Serangelo [facility] LACTIC ACID, ARTERIAL 2022 02:33:00 Serangelo [facility] MAGNESIUM 2022 02:33:00 [facility] OXYGEN SATURATION, 2022 02:33:00 Columba [facility] MEASURED [facility] PHOSPHORUS 2022 02:33:[address] [facility] PT/APTT 2022 02:33:00 Columba [facility] CBC W/PLT COUNT & AUTO 2022 02:33:00 Columba [facility] DIFFERENTIAL [facility] CBC W/PLT COUNT & AUTO 2022 02:33:00 Columba [facility] DIFFERENTIAL [facility] (CELLAVISION MANUAL DIFF) 2022 02:33:00 Columba Ihsan I [facility] XR CHEST 1 VIEW PORTABLE / 2022 01:27:00 Dante Fenton [facility] PREPARE RBC 2022-08-25 23:54:00 Brady Juarez [facility] OXYGEN SATURATION, 2022-08-25 23:34:00 Serangelo [facility] MEASURED [facility] CALCIUM, IONIZED 2022-08-25 23:34:00 [facility] POCT-GLUCOSE METER 2022-08-25 23:32:00 Geri [facility] RRL CRITICAL LABS 2022-08-25 20:28:[address] [facility] (ABG,NA,K,H&H,GLUCOSE) [facility] enter CALCIUM, IONIZED 2022-08-25 20:28:00 [facility] BLOOD GAS, ARTERIAL 2022-08-25 20:28:00 Formerly [facility] SODIUM NA-STAT LAB 2022-08-25 20:28:00 [facility] POTASSIUM-STAT LAB 2022-08-25 20:28:00 [facility] GLUCOSE-STAT LAB 2022-08-25 20:28:00 [facility] HGB/HCT (H&H) - STAT LAB 2022-08-25 20:28:00 [facility] POCT-GLUCOSE METER 2022-08-25 18:17:00 [facility] TRANSFUSE LEUKO-REDUCED 2022-08-25 17:31:00 Evy Perdomo [facility] I [facility] RED BLOOD CELLS [facility] POCT-GLUCOSE METER 2022-08-25 15:53:00 Geri [facility] BASIC METABOLIC PANEL 2022-08-25 15:47:00 [facility] CALCIUM, IONIZED 2022-08-25 15:47:00 [facility] CBC (HEMOGRAM ONLY) 2022-08-25 15:47:00 [facility] MAGNESIUM 2022-08-25 15:47:00 [facility]ent[facility] PHOSPHORUS 2022-08-25 15:47:00 Serenibisi [facility] LACTIC ACID, ARTERIAL 2022-08-25 15:47:00 Dante Fenton [facility] LACTIC ACID, ARTERIAL 2022-08-25 12:18:00 Dante Fenton [facility] POCT-GLUCOSE METER 2022-08-25 12:13:00 Villafuerte [facility] POCT-GLUCOSE METER 2022-08-25 08:47:00 [facility] LACTIC ACID, ARTERIAL 2022-08-25 08:34:00 [facility]XYGEN SATURATION, 2022-08-25 08:34:00 Sereni [facility] BLOOD GAS, ARTERIAL 2022-08-25 08:34:00 [facility] BASIC METABOLIC PANEL 2022-08-25 08:34:00 Phan Alexander [facility] CALCIUM, IONIZED 2022-08-25 08:34:00 [facility] POCT-GLUCOSE METER 2022-08-25 07:27:00 Villafuerte [facility] POCT-GLUCOSE METER 2022-08-25 06:27:00 [facility] POCT-GLUCOSE METER 2022-08-25 03:19:00 [facility] BASIC METABOLIC PANEL 2022-08-25 02:12:00 Sereni [facility] BLOOD GAS, ARTERIAL 2022-08-25 02:12:00 [facility] CALCIUM, IONIZED 2022-08-25 02:12:00 [facility] PANEL 2022-08-25 02:12:00 Cher Rebollar [facility] FIBRINOGEN 2022-08-25 02:12:00 Serenio, [facility] LACTIC ACID, ARTERIAL 2022-08-25 02:12:00 Columba [facility] MAGNESIUM 2022-08-25 02:12:00 [facility] OXYGEN SATURATION, 2022-08-25 02:12:00 Serangelo [facility] MEASURED [facility] PHOSPHORUS 2022-08-25 02:12:00 Columba [facility] PT/APTT 2022-08-25 02:12:00 Columba [facility] CBC W/PLT COUNT & AUTO 2022-08-25 02:12:00 [facility] DIFFERENTIAL [facility] CBC W/PLT COUNT & AUTO 2022-08-25 02:12:00 Columba [facility] DIFFERENTIAL [facility] POCT-GLUCOSE METER 2022-08-25 01:16:00 Geri [facility] XR CHEST 1 VIEW PORTABLE / 2022-08-25 01:06:00 Dante Fenton [facility] POCT-GLUCOSE METER 2022-08-25 00:09:00 Geri [facility] BLOOD GAS, ARTERIAL 2022-08-24 23:08:00 Columba [facility] POCT-GLUCOSE METER 2022-08-24 23:04:00 [facility] POCT-GLUCOSE METER 2022-08-24 21:53:00 [facility] RRL CRITICAL LABS 2022-08-24 21:07:00 [facility] (ABG,NA,K,H&H,GLUCOSE) [facility] enter LACTIC ACID, ARTERIAL 2022-08-24 21:07:00 [facility] BLOOD GAS, ARTERIAL 2022-08-24 21:07:00 [facility] 2022-08-24 21:07:00 [facility] 2022-08-24 21:07:00 [facility] GLU[facility]-STAT LAB 2022-08-24 21:07:00 [facility] HGB/HCT (H&H) - STAT LAB 2022-08-24 21:07:00 [facility] POCT-GLUCOSE METER 2022-08-24 19:48:00 Jerrell Villafuerte [facility] RRL CRITICAL LABS 2022-08-24 19:36:00 [facility] ([facility],NA,K,H&H,GLUCOSE) [facility] C enter LACTIC ACID, ARTERIAL 2022-08-24 19:36:00 [facility] CALCIUM, IONIZED 2022-08-24 19:36:00 [facility] BLOOD GAS, ARTERIAL 2022-08-24 19:36:00 [facility] SODIUM NA-STAT LAB 2022-08-24 19:36:00 [facility] POTASSIUM-STAT LAB 2022-08-24 19:36[facility]00 [facility]22-08-24 19:36[facility] 2022-08-24 19:36:00 [facility] RRL CRITICAL LABS 2022-08-24 17:13:[address] [facility] (ABG,NA,K,H&H,GLUCOSE) Medical C enter BLOOD GAS, ARTERIAL 2022-08-24 17:13:00 Juarez, Brady [facility] SODIUM NA-STAT LAB 2022-08-24 17:13:00 Juarez, Brady [facility] POTASSIUM-STAT LAB 2022-08-24 17:13:00 Juarez, Brady [facility] GLUCOSE-STAT LAB 2022-08-24 17:13:00 Juarez, [facility] HGB/HCT (H&H) - STAT LAB 2022-08-24 17:13:00 Juarez, [facility] LACTIC ACID, ARTERIAL 2022-08-24 17:13:00 Dante Fenton [facility] XR CHEST 1 VIEW PORTABLE / 2022-08-24 15:45:00 Dante Fenton [facility] MISCELLANEOUS LAB ORDER 2022-08-24 14:39:00 Dante Fenton [facility] BLOOD GAS, ARTERIAL 2022-08-24 14:39:00 Dante Fenton [facility] CALCIUM, IONIZED 2022-08-24 14:39:00 Dante Fenton [facility] CBC W/PLT COUNT & AUTO 2022-08-24 14:39:[address] [facility] COMPREHENSIVE METABOLIC 2022-08-24 14:39:00 Dante Fenton [facility] FIBRINOGEN 2022-08-24 14:39:00 Dante Fenton [facility] LACTIC ACID, ARTERIAL 2022-08-24 14:39:00 Dante Fenton [facility] MAGNESIUM 2022-08-24 14:39:00 Dante Fenton [facility] OXYGEN SATURATION, 2022-08-24 14:39:00 Dante Fenton [facility] PHOSPHORUS 2022-08-24 14:39:00 Dante Fenton [facility] PROTHROMBIN TIME/INR 2022-08-24 14:39:00 Dante Fenton [facility] PT/APTT 2022-08-24 14:39:00 Dante Fenton [facility] SODIUM NA-STAT LAB 2022-08-24 14:39:00 Dante Fenton [facility] POTASSIUM-STAT LAB 2022-08-24 14:39:00 Dante Fenton [facility] GLUCOSE-STAT LAB 2022-08-24 14:39:00 Dante Fenton [facility] HGB/HCT (H&H) - STAT LAB 2022-08-24 14:39:00 Eliceo Dante [place] [facility] CBC W/PLT COUNT & AUTO 2022-08-24 14:39:00 Eliceo [facility] RRL CRITICAL LABS 2022-08-24 13:39:01 [facility] (ABG,NA,K,H&H,GLUCOSE) Medical C enter CALCIUM, IONIZED 2022-08-24 13:39:01 Teresa Kit [facility] BLOOD GAS, ARTERIAL 2022-08-24 13:39:01 Teresa Kit [facility] SODIUM NA-STAT LAB 2022-08-24 13:39:01 Teresa [facility] POTASSIUM-STAT LAB 2022-08-24 13:39:01 Teresa [facility] GLUCOSE-STAT LAB 2022-08-24 13:39:01 Teresa Kit [facility] HGB/HCT (H&H) - STAT LAB 2022-08-24 13:39:01 Teresa Kit [facility] TRANSFUSE LEUKO-REDUCED 2022-08-24 13:14:00 [facility] RED BLOOD CELLS [facility] PROTHROMBIN TIME/INR 2022-08-24 13:09:17 Teresa Kit [facility] APTT 2022-08-24 13:09:17 Teresa [facility] FIBRINOGEN 2022-08-24 13:09:17 Teresa [facility] PLATELET COUNT 2022-08-24 13:09:17 Teresa [facility] POCT-ACT 2022-08-24 13:04:00 Jerrell Villafuerte [facility] RRL CRITICAL LABS 2022-08-24 12:41:26 [facility] (ABG,NA,K,H&H,GLUCOSE) Medical C enter CALCIUM, IONIZED 2022-08-24 12:41:26 Teresa Kit [facility] BLOOD GAS, ARTERIAL 2022-08-24 12:41:26 Teresa Kit [facility] SODIUM NA-STAT LAB 2022-08-24 12:41:26 Teresa [facility] POTASSIUM-STAT LAB 2022-08-24 12:41:26 Teresa [facility] GLUCOSE-STAT LAB 2022-08-24 12:41:26 Teresa [facility] HGB/HCT (H&H) - STAT LAB 2022-08-24 12:41:26 Teresa Kit [facility] POCT-ACT 2022-08-24 12:21:00 Jerrell Villafuerte [facility] RRL CRITICAL LABS 2022-08-24 12:19:46 Brady Juarez [facility] (ABG,NA,K,H&H,GLUCOSE) Medical C enter BLOOD GAS, ARTERIAL 2022-08-24 12:19:46 Brady Juarez [facility] SODIUM NA-STAT LAB 2022-08-24 12:19:46 Brady Juarez [facility] POTASSIUM-STAT LAB 2022-08-24 12:19:46 Brady Juarez [facility] GLUCOSE-STAT LAB 2022-08-24 12:19:46 Brady Juarez [facility] HGB/HCT (H&H) - STAT LAB 2022-08-24 12:19:46 Brady Juarez [facility] POCT-ACT 2022-08-24 11:42:00 Geri Jerrell [facility] RRL CRITICAL LABS 2022-08-24 11:40:21 Juarez, Brady Gutiérrez [facility] es (ABG,NA,K,H&H,GLUCOSE) Medical C enter BLOOD GAS, ARTERIAL 2022-08-24 11:40:21 Juarez, Brady Gutiérrez [facility] SODIUM NA-STAT LAB 2022-08-24 11:40:21 Juarez, Brady Gutiérrez [facility] POTASSIUM-STAT LAB 2022-08-24 11:40:21 Juarez, Brady Gutiérrez [facility] GLUCOSE-STAT LAB 2022-08-24 11:40:21 Juarez, Brady Gutiérrez [facility] HGB/HCT (H&H) - STAT LAB 2022-08-24 11:40:21 Juarez, Brady Gutiérrez [facility] POCT-ACT 2022-08-24 11:11:00 Jerrell Villafuerte [facility] RRL CRITICAL LABS 2022-08-24 11:09:42 Juarez, Brady Gutiérrez [facility] es (ABG,NA,K,H&H,GLUCOSE) Medical C enter BLOOD GAS, ARTERIAL 2022-08-24 11:09:42 Juarez, Brady Gutiérrez [facility] SODIUM NA-STAT LAB 2022-08-24 11:09:42 Juarez, Brady Gutiérrez [facility] POTASSIUM-STAT LAB 2022-08-24 11:09:42 Juarez, Brady Gutiérrez [facility] GLUCOSE-STAT LAB 2022-08-24 11:09:42 Juarez, Brady Gutiérrez [facility] HGB/HCT (H&H) - STAT LAB 2022-08-24 11:09:42 Juarez, Brady Gutiérrez [facility] RRL CRITICAL LABS 2022-08-24 10:41:01 Sophia [facility] (ABG,NA,K,H&H,GLUCOSE) Medical C enter BLOOD GAS, ARTERIAL 2022-08-24 10:41:01 Juarez, Brady Gutiérrez [facility] SODIUM NA-STAT LAB 2022-08-24 10:41:01 Juarez, Brady Gutiérrez [facility] POTASSIUM-STAT LAB 2022-08-24 10:41:01 Brady Juarez [facility] GLUCOSE-STAT LAB 2022-08-24 10:41:01 Brady Juarez [facility] HGB/HCT (H&H) - STAT LAB 2022-08-24 10:41:01 Brady Juarez [facility] POCT-ACT 2022-08-24 10:41:00 Villafuerte, Jerrell [facility] POCT-ACT 2022-08-24 10:14:00 Villafuerte, [facility] POCT-ACT 2022-08-24 08:07:00 Villafuerte, [facility] RRL CRITICAL LABS 2022-08-24 07:53:07 [facility] (ABG,NA,K,H&H,GLUCOSE) Medical C enter CALCIUM, IONIZED 2022-08-24 07:53:07 Teresa [facility] BLOOD GAS, ARTERIAL 2022-08-24 07:53:07 Teresa [facility] SODIUM NA-STAT LAB 2022-08-24 07:53:07 Teresa [facility] POTASSIUM-STAT LAB 2022-08-24 07:53:07 Teresa [facility] GLUCOSE-STAT LAB 2022-08-24 07:53:07 Teresa [facility] HGB/HCT (H&H) - STAT LAB 2022-08-24 07:53:07 Teresa Kit [facility] ANESTHESIA ANN-MARIE 2022-08-24 07:41:08 Juan J Quevedo [facility] CABG, USING INTERNAL 2022-08-24 07:12:00 Juarez, Brady Gutiérrez [facility] THORACIC ARTERY AND Medical Cent er SAPHENOUS VEIN GRAFT MAZE PROCEDURE, USING 2022-08-24 07:12:00 Juarez, Brady Gutiérrez [facility] CRYOABLATION [facility] LIGATION, ATRIAL APPENDAGE 2022-08-24 07:12:00 JuarezBrady lowery [facility] REPLACEMENT, AORTIC VALVE 2022-08-24 07:12:00 Brady Juarez [facility] ECHOCARDIOGRAM, 2022-08-24 07:12:00 Brady Juarez [facility] TRANSESOPHAGEAL [facility] SURGICAL PROCUREMENT, 2022-08-24 07:12:00 Brady Juarez [facility] VEIN, ENDOSCOPIC Medical Center BASIC METABOLIC PANEL 2022-08-24 03:52:00 Nayla [facility] CBC (HEMOGRAM ONLY) 2022-08-24 03:52:00 Villafuerte, [facility] 2022-08-24 03:52:00 Rupert Dean [facility] TYPE AND SCREEN, AUTOMATED 2022-08-24 03:52:00 Jerrell Villafuerteoc [facility] POCT-GLUCOSE METER 2022-08-23 21:19:00 Villafuerte, [facility] Nemesio [facility] POCT-GLUCOSE METER 2022-08-23 17:01:00 Villafuerte, [facility] POCT-GLUCOSE METER 2022-08-23 12:04:00 Villafuerte, [facility] POCT-GLUCOSE METER 2022-08-23 07:43:00 Villafuerte, [facility] APTT 2022-08-23 05:08:00 Villafuerte, [facility] BASIC METABOLIC PANEL 2022-08-23 05:08:00 Nayla [facility] POCT-GLUCOSE METER 2022-08-22 21:56:00 Villafuerte, [facility] Nem[facility] POCT-GLUCOSE METER 2022-08-22 17:06:00 Villafuerte, [facility] Nem[facility] POCT-GLUCOSE METER 2022-08-22 11:53:00 Villafuerte, [facility] POCT-GLUCOSE METER 2022-08-22 07:29:00 Villafuerte, [facility] BASIC METABOLIC PANEL 2022-08-22 01:05:00 Nayla [facility] APTT 2022-08-22 01:05:00 Rupert Dean [facility] POCT-GLUCOSE METER 2022-08-21 20:47:00 Geri Jerrell Herr [facility] APTT 2022-08-21 18:32:00 Rupert Dean [facility] POCT-GLUCOSE METER 2022-08-21 17:19:00 Geri Jerrell Nemesio [facility] POCT-GLUCOSE METER 2022-08-21 11:28:00 Geri Jerrell Herr [facility] APTT 2022-08-21 10:57:00 Rupert Dean [facility] POCT-GLUCOSE METER 2022-08-21 07:19:00 Geri [facility] BASIC METABOLIC PANEL 2022-08-21 03:56:00 Nayla [facility] APTT 2022-08-21 03:56:00 Rupert Dean [facility] APTT 2022-08-20 21:37:00 Rupert Dean [facility] POCT-GLUCOSE METER 2022-08-20 21:21:00 Geri [facility] POCT-GLUCOSE METER 2022-08-20 17:11:00 Geri Jerrell Herr [facility] BASIC METABOLIC PANEL 2022-08-20 15:10:00 Nayla [facility] APTT 2022-08-20 14:44:00 Rupert Dean [facility] APTT 2022-08-20 12:36:00 Rupert Dean [facility] POCT-GLUCOSE METER 2022-08-20 12:01:00 Geri Jerrellkathleen Herr [facility] POCT-GLUCOSE METER 2022-08-20 07:51:00 Villafuerte Jerrell Nemes[facility] APTT 2022-08-20 04:11:00 Rupert Dean [facility] POCT-GLUCOSE METER 2022-08-19 20:59:00 Geri [facility]rell [facility] POCT-GLUCOSE METER 2022-08-19 17:10:00 Jerrell Villafuerte [facility] APTT 2022-08-19 16:47:00 Rupert Dean [facility] POCT-GLUCOSE METER 2022-08-19 12:28:00 Geri [facility] APTT 2022-08-19 09:25:00 Rupert Dean [facility] POCT-GLUCOSE METER 2022-08-19 07:23:00 Geri Jerrell [facility] COMPREHENSIVE METABOLIC 2022-08-19 01:51:[address] [facility] APTT 2022-08-19 01:51:00 Rupert Dean [facility] CAROTID DOPPLER BILATERAL 2022-08-18 21:11:00 Rupert Dean [facility] VEIN MAPPING LEGS 2022-08-18 21:11:00 Rupert Dean [facility] POCT-GLUCOSE METER 2022-08-18 21:08:00 Geri [facility] POCT-ACT 2022-08-18 16:08:00 Geri [facility] POCT-ACT 2022-08-18 13:52:00 Geri [facility] POCT-GLUCOSE METER 2022-08-18 07:36:00 Geri [facility] ABORH, MANUAL 2022-08-18 05:50:00 Amara Kelley [facility] COMPREHENSIVE METABOLIC 2022-08-18 05:34:[address] [facility] APTT 2022-08-18 05:34:00 Geri [facility] TYPE AND SCREEN, AUTOMATED 2022-08-18 05:34:00 Rupert Dean [facility] APTT 2022-08-17 22:22:00 Rupert Dean [facility] POCT-GLUCOSE METER 2022-08-17 21:06:00 Arjun [facility] POCT-GLUCOSE METER 2022-08-17 17:00:00 [facility]teJerrell [facility] APTT 2022-08-17 15:33:00 Rupert Dean [facility] 2D ECHO W/ DOPPLER 2022-08-17 12:49:13 Alfredo [facility] (CW/PW/COLOR) [facility] POCT-GLUCOSE METER 2022-08-17 11:54:00 Villafuerte Jerrell [facility] POCT-GLUCOSE METER 2022-08-17 07:42:00 Geri Jerrell [facility] APTT 2022-08-17 07:38:00 Rupert Dean [facility] COMPREHENSIVE METABOLIC 2022-08-17 04:49:[address] [facility] CBC W/PLT COUNT & AUTO 2022-08-17 04:49:[address] [facility] AP[facility] 2022-08-17 04:49:00 [facility] CBC W/PLT COUNT & AUTO 2022-08-17 04:49:00 [facility] (CELLAVISION MANUAL DIFF) 2022-08-17 04:49:00 [facility] POCT-GLUCOSE METER 2022-08-16 20:27:00 [facility] POCT-GLUCOSE METER 2022-08-16 17:12:00 [facility] POCT-GLUCOSE METER 2022-08-16 12:25:00 [facility] APTT 2022-08-16 12:13:00 Rupert Dean [facility] POCT-GLUCOSE METER 2022-08-16 07:46:00 [facility] HEPATIC FUNCTION PANEL 2022-08-16 04:20:00 CarolinaWadlo [facility] BASIC METABOLIC PANEL 2022-08-16 04:20:00 [facility] CALCIUM, IONIZED 2022-08-16 04:20:00 [facility] PHOS[facility]US 2022-08-16 04:20:00 Sandrita [facility] CBC W/PLT COUNT & AUTO 2022-08-16 04:20:[address] [facility] MAGNESIUM 2022-08-16 04:20:00 [facility] APTT 2022-08-16 04:20:00 Rupert Dean [facility] CBC W/PLT COUNT & AUTO 2022-08-16 04:20:[address] [facility] (CELLAVISION MANUAL DIFF) 2022-08-16 04:20:00 Sandrita [facility] POCT-GLUCOSE METER 2022-08-15 21:20:00 Sandrita [facility] APTT 2022-08-15 21:08:00 Jermaine Rupert [facility] APTT 2022-08-15 19:28:00 Rupert Dean [facility] POCT-GLUCOSE METER 2022-08-15 17:24:00 Sandrita [facility] BLOOD GAS, VENOUS 2022-08-15 13:17:00 Nayla [facility] BASIC METABOLIC PANEL 2022-08-15 13:17:00 Winslow [facility] APTT 2022-08-15 13:17:00 Rupert Dean [facility] POCT-GLUCOSE METER 2022-08-15 12:08:00 [facility] POCT-GLUCOSE METER 2022-08-15 07:43:00 Jerrell Villafuerte [facility] XR CHEST 1 VIEW PORTABLE / 2022-08-15 04:53:00 Waldo Figueroa [facility] MAGNESIUM 2022-08-15 04:22:00 Alfredo Olson [facility] LACTIC ACID, VENOUS 2022-08-15 04:22:00 Alfredo Olson [facility] HEPATIC FUNCTION PANEL 2022-08-15 04:22:00 Ti Figueroachari [facility] B-TYPE NATRIURETIC FACTOR 2022-08-15 04:22:00 Alfredo Olson [facility] (BNP) [facility] BASIC METABOLIC PANEL 2022-08-15 04:22:00 Alfredo Olson [facility] APTT 2022-08-15 04:22:00 Rupert Dean [facility] POCT-GLUCOSE METER 2022-08-14 20:41:00 [facility] 2022-08-14 20:04:00 Rupert Dean [facility] POCT-GLUCOSE METER 2022-08-14 17:15:00 Jerrell Villafuerte [facility] APTT 2022-08-14 14:07:00 Jermaine Rupert [facility] POCT-GLUCOSE METER 2022-08-14 12:22:00 Jerrell Villafuerte [facility] POCT-GLUCOSE METER 2022-08-14 07:56:00 Geri Jerrell [facility] BASIC METABOLIC PANEL 2022-08-14 06:03:[address] [facility] CBC (HEMOGRAM ONLY) 2022-08-14 06:03:00 [facility] HE[facility] FUNCTION PANEL 2022-08-14 06:03:00 Carolina [facility] APTT 2022-08-14 06:03:00 Rupert Dean [facility] XR CHEST 1 VIEW PORTABLE / 2022-08-14 05:26:00 Waldo Figueroa [facility] VANCOMYCIN LEVEL, TROUGH 2022-08-13 23:45:00 Waldo Figueroa I [facility] APTT 2022-08-13 23:45:00 Rupert Dean [facility] POCT-GLUCOSE METER 2022-08-13 21:09:00 Jerrell Villafuerte [facility] APTT 2022-08-13 16:59:00 Rupert Dean [facility] US ABDOMEN COMPLETE 2022-08-13 13:03:[address] [facility] PELVIS LIMITED 2022-08-13 12:53:00 Sharon Clark [facility] POCT-GLUCOSE METER 2022-08-13 11:07:[address] [facility] APTT 2022-08-13 09:29:00 Rupert Dean [facility] POCT-GLUCOSE METER 2022-08-13 08:07:[address] [facility] BASIC METABOLIC PANEL 2022-08-13 03:29:[address] [facility] CBC (HEMOGRAM ONLY) 2022-08-13 03:29:00 Carolina [facility] HEPATIC FUNCTION PANEL 2022-08-13 03:29:00 Carolina [facility] T SPOT TB 2022-08-13 03:29:00 Gaviota Salinas [facility] APTT 2022-08-13 03:29:00 Rupert Dean [facility] MAGNESIUM 2022-08-13 03:29:00 Andrea Groves [facility] POCT-GLUCOSE METER 2022-08-12 21:19:[address] [facility] APTT 2022-08-12 21:17:00 Jermaine Rupert J [facility] POCT-GLUCOSE METER 2022-08-12 17:50:[address] [facility] BASIC METABOLIC PANEL 2022-08-12 17:44:00 Brad [facility] 2D ECHO W/ DOPPLER 2022-08-12 16:57:41 Gaviota Salinas [facility] (CW/PW/COLOR) [facility] HIGH SENSITIVITY TROPONIN 2022-08-12 15:40:00 Gaviota Salinas [facility] APTT 2022-08-12 14:06:00 Rupert Dean [facility] POCT-GLUCOSE METER 2022-08-12 11:21:00 [facility] CHEST 1 VIEW PORTABLE / 2022-08-12 08:50:00 Toby Figueroaneda [facility] POCT-GLUCOSE METER 2022-08-12 08:03:[address] [facility] SPUTUM CULTURE + GRAM 2022-08-12 05:55:00 Andrea Groves [facility] DRUG TEST, GENERAL 2022-08-12 05:32:00 Javier Yanez [facility] BASIC METABOLIC PANEL 2022-08-12 04:15:00 Carolina [facility] CBC (HEMOGRAM ONLY) 2022-08-12 04:15:00 Carolina [facility] HEPATIC FUNCTION PANEL 2022-08-12 04:15:00 Carolina [facility] HIGH SENSITIVITY TROPONIN 2022-08-12 04:15:00 Javier Yanez [facility] APTT 2022-08-12 04:15:00 Rupert Dean [facility] MAGNESIUM 2022-08-12 04:15:00 Andrea Groves [facility] MRSA SCREEN 2022-08-11 23:32:00 Sharon Clark [facility] STREP PNEUMONIAE ANTIGEN 2022-08-11 23:26:00 Sharon Clark [facility] LEGIONELLA ANTIGEN, URINE 2022-08-11 23:25:[address] [facility] HIGH SENSITIVITY TROPONIN 2022-08-11 23:15:00 Javier Yanez vaishali [facility] LACTIC ACID, VENOUS 2022-08-11 23:15:00 Javier Yanez [facility] APTT 2022-08-11 23:15:00 [facility] BLOOD GAS, VENOUS 2022-08-11 23:15:00 Sharon Clark [facility] HEMOGLOBIN A1C 2022-08-11 23:15:00 [facility] BLOOD CULTURE 2022-08-11 23:14:00 Andrea Groves [facility] ECG 12-LEAD 2022-08-11 23:01:57 [facility] 12-LEAD 2022-08-11 23:01:57 Unknown, Hl7 Doctor [facility] CT CHEST WITHOUT IV 2022-08-11 21:34:00 Alfredo Olson [facility] CT BRAIN WITHOUT IV 2022-08-11 21:34:00 Javier Yanez [facility] LACTIC ACID, VENOUS 2022-08-11 21:03:00 [facility]AL[facility]IN 2022-08-11 21:03:00 [facility] APTT 2022-08-11 21:03:00 Renata [place] [facility] TSH/FREE T4 IF INDICATED 2022-08-11 21:03:00 Javier Yanez [facility] HEPATITIS PANEL, ACUTE 2022-08-11 21:03:00 Andrea Groves [facility] CBC W/PLT COUNT & AUTO 2022-08-11 19:51:00 Nestor, [facility] BASIC METABOLIC PANEL 2022-08-11 19:51:00 [employer] [facility] [employer] [facility], [facility] HIGH SENSITIVITY TROPONIN 2022-08-11 19:51:00 [employer] [facility] [employer] [facility], [facility] B-TYPE NATRIURETIC FACTOR 2022-08-11 19:51:00 [facility] (BNP) [facility] HEPATIC FUNCTION PANEL 2022-08-11 19:51:00 Javier Yanez [facility] MAGNESIUM 2022-08-11 19:51:00 Javier Yanez [facility] LIPID PANEL 2022-08-11 19:51:00 Andrea Groves [facility] CBC W/PLT COUNT & AUTO 2022-08-11 19:51:00 [employer] [facility], [facility] (CELLAVISION MANUAL DIFF) 2022-08-11 19:51:00 [employer] [facility] [employer] [facility], [facility] VASCULAR DIAGRAM -SCAN 2022-08-11 00:00:00 ProviderRadha [facility] Plan of Care Planned Activity Planned Date Details Comments Source Future Scheduled 2023-08-25 Tobacco Cessation [facility] Test 00:00:00 Counseling and Medical Cente r Screening (12+) [code = Tobacco Cessation Counseling and Screening (12+)] Future Scheduled 2023-01-22 INFLUENZA VACCINE [facility] Test 00:00:00 (Season Ended) [code = [facility] INFLUENZA VACCINE (Season Ended)] Future Scheduled 2022-11-27 [facility] Test 13:19:38 malignant neoplasm of colon (procedure) [code = 780215028] Future Scheduled 2022-11-27 Screening [facility] Test 13:19:38 malignant neoplasm of colon (procedure) [code = 058365782] Future Scheduled 2022-11-27 Screening for [facility] Test 13:19:38 malignant neoplasm of colon (procedure) [code = 244713535] Future Scheduled 2022-11-27 COVID-19 VACCINE (#1) [facility] Test 13:19:38 [code = COVID-19 VACCINE (#1)] Future Scheduled 2022-11-27 65+ PNEUMOCOCCAL [facility] Test 13:19:38 VACCINE (1 - PCV) [code = 65+ PNEUMOCOCCAL VACCINE (1 - PCV)] Future Scheduled 2022-11-27 Hepatitis C screening [facility] Test 13:19:38 (procedure) [code = 647184865] Future Scheduled 2022-11-27 Screening for [facility] Test 13:19:38 malignant neoplasm of colon (procedure) [code = 101209275] Future Scheduled 2022-11-27 Screening for [facility] Test 13:19:38 malignant neoplasm of colon (procedure) [code = 376521863] Future Scheduled 2022-11-27 SHINGLES VACCINES (1 [facility] Test 13:19:38 of 2) [code = SHINGLES VACCINES (1 of 2)] Future Scheduled 2022-11-27 INFLUENZA VACCINE Method [facility] Test 13:19:38 [code = INFLUENZA VACCINE] Future Scheduled 2022-11-13 Screening [facility] Test 09:21:59 malignant neoplasm of colon (procedure) [code = 689556178] Future Scheduled 2022-11-13 Screening [facility] Test 09:21:59 malignant neoplasm of colon (procedure) [code = 129564755] Future Scheduled 2022-11-13 Screening for [facility] Test 09:21:59 malignant neoplasm of colon (procedure) [code = 854325966] Future Scheduled 2022-11-13 COVID-19 VACCINE (#1) [facility] Test 09:21:59 [code = COVID-19 VACCINE (#1)] Future Scheduled 2022-11-13 65+ PNEUMOCOCCAL [facility] Test 09:21:59 VACCINE (1 - PCV) [code = 65+ PNEUMOCOCCAL VACCINE (1 - PCV)] Future Scheduled 2022-11-13 Hepatitis C screening [facility] Test 09:21:59 (procedure) [code = 792474353] Future Scheduled 2022-11-13 Screening for [facility] Test 09:21:59 malignant neoplasm of colon (procedure) [code = 464523589] Future Scheduled 2022-11-13 Screening [facility] Test 09:21:59 malignant neoplasm of colon (procedure) [code = 951804773] Future Scheduled 2022-11-13 SHINGLES VACCINES (1 [facility] 09:21:59 of 2) [code = SHINGLES VACCINES (1 of 2)] Future Scheduled 2022-11-13 INFLUENZA VACCINE [facility] Test 09:21:59 [code = INFLUENZA VACCINE] Future Scheduled 2022-11-01 Screening for [facility] Test 02:00:11 malignant neoplasm of colon (procedure) [code = 983846913] Future Scheduled 2022-11-01 Screening [facility] Test 02:00:11 malignant neoplasm of colon (procedure) [code = 524300298] Future Scheduled 2022-11-01 Scre[facility] Test 02:00:11 malignant neoplasm of colon (procedure) [code = 685520836] Future Scheduled 2022-11-01 COVID-19 VACCINE (#1) [facility] Test 02:00:11 [code = COVID-19 VACCINE (#1)] Future Scheduled 2022-11-01 65+ [facility] 02:00:11 VACCINE (1 - PCV) [code = 65+ PNEUMOCOCCAL VACCINE (1 - PCV)] Future Scheduled 2022-11-01 Hepatitis C screening [facility] Test 02:00:11 (procedure) [code = 332931982] Future Scheduled 2022-11-01 [facility] Test 02:00:11 malignant neoplasm of colon (procedure) [code = 478283101] Future Scheduled 2022-11-01 [facility] Test 02:00:11 malignant neoplasm of colon (procedure) [code = 209515754] Future Scheduled 2022-11-01 SHINGLES VACCINES (1 [facility] Test 02:00:11 of 2) [code = SHINGLES VACCINES (1 of 2)] Future Scheduled 2022-11-01 INFLUENZA VACCINE [facility] Test 02:00:11 [code = INFLUENZA VACCINE] Future Scheduled 2022-08-[address] [facility] Test [facility] measurement [facility] (procedure) [code = 24427653] Future Scheduled 2022-05-[address] [...] 00:00:00 examination Medical Center (regime/therapy) [code = 124213966] Future Scheduled 1960 Urine screening for [facility] Test 00:00:00 protein (procedure) Medical Center [code = 876790594] Future Scheduled 1954 PNEUMOCOCCAL 65+ YRS [facility] [...] [facility] l [facility] colon (procedure) [code = 882021574] Future Scheduled [address] [facility] Test 00:00:00 malignant neoplasm of [facility] Center colon (procedure) [code = 580255255] Future Scheduled [address] [facility] Test 00:00:00 malignant neoplasm of [facility]ica [facility] Center colon (procedure) [code = 940664242] Future Scheduled [address] [facility] Test 00:00:00 malignant neoplasm of Medica [facility] colon (procedure) [code = 984126082] Future Scheduled 1950 Sigmoidoscopy [facility]] Medical Cente r Encounters Start End Encounter Admission Attending Care Care Encounter Source Date/Time Date/Time Type Type Clinicians Facility Department ID 2022-08-[address] [facility] Cardiology [id number] 00:00:00 Encounter [facility] 2022-10-26 2022-10-26 Outpatient GEOVANNY COSME [facility] [id number] SLE 07:59:06 23:59:00 MORALES 2022-10-26 2022-10-26 Outpatient GEOVANNY RUDD [facility] [id number] SLE 08:35:25 08:35:25 DONITA 2022-10-20 2022-10-20 Orders Alfredo Olson 1.2.840.1 [id number] Methodi 00:00:00 00:00:00 Only Jose Maria 41907.1.[address] 3.430.2.7 Hospit a .3.057688 l .8 2022-10-20 2022-10-20 Orders Alfredo Olson 1.2.840.1 [id number] Methodi 00:00:00 00:00:00 Only Jose Maria 22827.1.[address] 3.430.2.7 Hospit a .3.282636 l .8 2022-10-14 2022-10-14 Office Alfredo Olson 1.2.840.1 [id number] Methodi 09:20:00 10:43:55 Visit Jose Maria 56356.1.[address] 3.430.2.7 Hospit a .3.263424 l .8 2022-10-14 2022-10-14 Office Alfredo Olson 1.2.840.1 [id number] Methodi 09:20:00 10:43:55 Visit Jose Maria 59443.1.[address] 3.430.2.7 Hospit a .3.022448 l .8 2022-10-14 2022-10-14 Travel 1.2.840.1 1.2.107.008 [id number] [id number] Methodi 00:00:00 00:00:[address] 3.430.2.7 0.2.7.3.698 Ho spita .3.942793 084.8 l .8 2022-10-14 2022-10-14 Outpatient [facility] [id number] [place] 00:00:00 00:00:[address] 2022-10-14 2022-10-14 Travel 1.2.840.1 1.2.803.687 [id number] [id number] Methodi 00:00:00 00:00:[address] 3.430.2.7 0.2.7.3.698 Ho spita .3.184438 084.8 l .8 2022-10-08 2022-10-08 Outpatient [facility] [id number] [facility] 00:00:00 00:00:00 2022-09-30 2022-09-30 Telephone Younis, 1.2.840.1 [id number] Methodi 00:00:00 00:00:[address] 3.430.2.7 Hospit a .3.081715 l .8 2022-09-30 2022-09-30 Telephone Younis, 1.2.840.1 [id number] Methodi 00:00:00 00:00:[address] 3.430.2.7 Hospit a .3.474439 l .8 2022-09-28 2022-09-28 Office Alfredo Olson 1.2.840.1 [id number] Methodi 10:00:00 11:00:28 Visit Jose Maria 41772.1.[address] 3.430.2.7 Hospit a .3.394580 l .8 2022-09-28 2022-09-28 Office Alfredo Olson 1.2.840.1 [id number] Methodi 10:00:00 11:00:28 Visit Jose Maria [address]1941.1.[address] 3.430.2.7 Hospit a .3.003649 l .8 2022-09-28 2022-09-28 Travel 1.2.840.1 1.2.824.117 0310 [id number] Methodi 00:00:00 00:00:[address] 3.430.2.7 0.2.7.3.698 Ho spita .3.414104 084.8 l .8 2022-09-28 2022-09-28 Travel 1.2.840.1 1.2.118.925 3555 [id number] Methodi 00:00:00 00:00:[address] 3.430.2.7 0.2.7.3.698 Ho spita .3.090768 084.8 l .8 2022-09-14 2022-09-14 Outpatient GEOVANNY ROLLINS [facility] [id number] [facility] 00:00:00 00:00:00 JOAQUIN 2022-09-14 2022-09-14 Travel 1.2.840.1 1.2.725.496 [id number] [id number] Methodi 00:00:00 00:00:[address] 3.430.2.7 0.2.7.3.698 Ho spita .3.643019 084.8 l .8 2022-09-14 2022-09-14 Travel 1.2.840.1 1.2.217.002 [id number] [id number] Methodi 00:00:00 00:00:[address] 3.430.2.7 0.2.7.3.698 Ho spita .3.303687 084.8 l .8 2022-09-07 2022-09-07 Outpatient JESSE PENALOZA [facility] [id number] [facility] 00:00:00 00:00:00 BIJI 2022-08-11 2022-09-02 Inpatient ER JERRELL VILLAFUERTE [facility] Cardiology 20 [id number] [facility] 18:56:00 10:40:00 2022-08-25 2022-08-25 Outpatient GEOVANNY ROLLINS [facility] [id number] [facility] 00:00:00 00:00:00 [facility] 2022-08-24 2022-08-[address] [facility] [id number] [facility] [address] 07:30:00 18:01:00 R [facility] 2022-08-24 2022-08-[address] [facility] [id number] [facility] 07:12:00 14:26:00 Event Basilio Ryan [facility] 2022-08-18 2022-08-[address] [facility] [id number] [facility] [address] 11:50:00 13:56:00 A [facility] 2022-08-11 2022-08-[address] [facility] [id number] [facility] [address] 00:00:00 00:00:00 Only [facility] 2022-08-11 2022-08-11 Travel [facility] [id number] [facility] 00:00:00 00:00:00 [facility] Results Test Description Test Time Test Comments Results Result [facility] e Comments XR CHEST 2 VIEWS 2022-10-26 08:50:54 [facility] 1950 Sex: M Chest PA and lateralCOMPARISON STUDY: 4/6/2023History provided: Postop evaluationHeart size within normal limits. Prior sternotomy. Lungs free of activedisease and vascularity normal. Valvular prosthesis in place. MISCELLANEOUS LAB ORDER 2022-09-14 12:47:12 Test Item Value Reference Range Interpretation Comme nts SCAN RESULT (test code = 0798457) JESSICA See scanned report.MISCELLANEOUS LAB [id number] 10:19:53 Test Item Value Reference Range Interpretation Comments SCAN RESULT (test code = 7512620) See attachment TISSUE [id number] 17:02:15Surgical Pathology Report Case: [id number] Authorizing Provider: Brady Juarez MD Collected: 08/24/2022 12:50 PM Ordering Location: [facility] CV Recovery Room 2 Received: 08/24/2022 03:01 PM Pathologist: Joanne Moody MD Specimen: Aortic Valve, AORTIC VALVE LEAFLET A. Aortic valve, replacement: - Valvular tissue with fibrotic changes, myxomatous degeneration and extensive calcification - No histopathologic evidence of inflammation Signing Pathologist Direct Phone Line: [phone] signed by Joanne Moody MD on 09/02/2022 at 5:02 [id number] CAD, NSTEMI, aortic valve stenosis.A. Aortic ValveReceived fresh, labeled with the patient's name, MRN number and "aortic valve leaflet" is a tissue specimen that consists of multiple salcido-yellow leaflets aggregating to 5.0 x 2.0 x 0.5 cm. Focally calcification is noted. No vegetations or fenestrations are grossly seen. Contact Lens Molder sections are submitted in A1 following decalcification. Gris Stanton SMicroscopic examination is performed and the salient findings are incorporated into the final diagnosis and comment sections. [facility], Department of Pathology, [address] [place] [address], [facility], [facility], [address] [place] [address], [facility], Department of [facility], [address] [place] [address], HXS-Glucose [id number] 08:15:46 Test Item Value Reference Range Interpretation Comments POC-Glucose Meter (test 112 mg/dL 70-110 H : TE STED AT [facility] code = 1538) [address] [facility], 770 30: Panel Machine Setter/Techni maikol ID = [id number] for Faustino Gan ie Lab Interpretation (test Abnormal code = 42731-6) [facility] [id number] 08:15:46 Test Item Value Reference Range Interpretation Comments POC-GLUCOSE METER 112 mg/dL 70-110 H : TESTED A T [facility] 6720 (BEAKER) (test code [facility], = 1538) 16582: Panel Machine Setter/Techni maikol ID = [id number] for Laura Sahu HEPATIC FUNCTION [id number] 06:07:13 Test Item Value Reference Range Interpretation [...] (test code = 51 U/L 6-55 347) Panel Machine Setter ID - [id number] 06:07:12 Test Item Value Reference Range Interpretation Comments MAGNESIUM (BEAKER) (test code = 2.0 mg/dL 1.6-2.6 627) Panel Machine Setter ID - DBBASIC METABOLIC [id number] 06:07:11 Test Item Value Reference Range Interpretation [...] not appl icable for dialysis patien ts Panel Machine Setter ID - DBCBC (HEMOGRAM ONLY)2022-09-02 05:34:18 Test [...] 0-0 (BEAKER) (test code = 413) POCT-GLUCOSE [id number] 21:21:00 Test Item Value Reference Range Interpretation Comments POC-GLUCOSE METER 150 mg/dL 70-110 H : TESTED A T [facility] 6720 (BEAKER) (test code = [facility], 1538) 08157: Panel Machine Setter/Techni maikol ID = [id number] for FOREST BERMAN POCT-GLUCOSE [id number] 17:19:25 Test Item Value Reference Range Interpretation Comments POC-GLUCOSE METER 119 mg/dL 70-110 H : TESTED A T [facility] 6720 (BEAKER) (test code = [facility], 1538) 45950: Panel Machine Setter/Techni maikol ID = [id number] for ANDREI OBRIEN, ADI POCT-GLUCOSE [id number] 12:47:58 Test Item Value Reference Range Interpretation Comments POC-GLUCOSE METER 147 mg/dL 70-110 H : TESTED A T [facility] 6720 (BEAKER) (test code = [facility], 1538) 11416: Panel Machine Setter/Techni maikol ID = [id number] for ANDREI OBRIEN, ADI POCT-GLUCOSE [id number] 07:23:02 Test Item Value Reference Range Interpretation Comments POC-GLUCOSE METER 109 mg/dL 70-110 : TESTED A T [facility] 6720 (BEAKER) (test code = [facility], 1538) 30495: Panel Machine Setter/Techni maikol ID = [id number] for ANDREI OBRIEN, ADI [id number] 05:52:46 Test Item Value Reference Range Interpretation Comments MAGNESIUM (BEAKER) (test code = 1.8 mg/dL 1.6-2.6 627) Panel Machine Setter ID - DBHEPATIC FUNCTION [id number] 05:52:46 Test Item Value Reference Range Interpretation [...] code = 71 U/L 6-55 H 347) Panel Machine Setter ID - DBBASIC METABOLIC [id number] 05:52:45 Test Item Value Reference Range Interpretation [...] not appl icable for dialysis patien ts Panel Machine Setter ID - DBCBC (HEMOGRAM ONLY)2022-09-01 05:36:57 Test [...] 0-0 (BEAKER) (test code = 413) POCT-GLUCOSE [id number] 17:32:06 Test Item Value Reference Range Interpretation Comments POC-GLUCOSE METER 151 mg/dL 70-110 H : TESTED A T [facility] 6720 (BEAKER) (test code = BHAVNA Gutiérrez [facility], 1538) 01001: Panel Machine Setter/Techni maikol ID = [id number] for ADI CHACON HEPATIC FUNCTION [id number] 13:47:34 Test Item Value Reference Range Interpretation [...] code = 113 U/L 6-55 H 347) Panel Machine Setter ID - [id number] 13:47:33 Test Item Value Reference Range Interpretation Comments MAGNESIUM (BEAKER) (test code = 1.9 mg/dL 1.6-2.6 627) Panel Machine Setter ID - JSPOCT-GLUCOSE [id number] 12:42:11 Test Item Value Reference Range Interpretation Comments POC-GLUCOSE METER 136 mg/dL 70-110 H : TESTED A T [facility] 6720 (BEAKER) (test code = [facility] Breaker [facility], 1538) 06779: Panel Machine Setter/Techni maikol ID = [id number] for ADI CHACON POCT-GLUCOSE [id number] 07:29:38 Test Item Value Reference Range Interpretation Comments POC-GLUCOSE METER 104 mg/dL 70-110 : TESTED A T [facility] 6720 (BEAKER) (test code = [facility] Breaker [facility], 1538) 30159: Panel Machine Setter/Techni maikol ID = [id number] for ADI CHACON BASIC METABOLIC [id number] 07:07:41 Test Item Value Reference Range Interpretation [...] not appl icable for dialysis patien ts Panel Machine Setter ID - RMCBC (HEMOGRAM ONLY)2022-08-31 05:47:14 Test [...] 0-0 (BEAKER) (test code = 413) POCT-GLUCOSE [id number] 17:24:42 Test Item Value Reference Range Interpretation Comments POC-GLUCOSE METER 133 mg/dL 70-110 H : TESTED A T [facility] 6720 (BEAKER) (test code = BHAVNA Gutiérrez [facility], 1538) 98131: Panel Machine Setter/Techni maikol ID = [id number] for Juan David Orlando delgado POCT-GLUCOSE [id number] 12:23:57 Test Item Value Reference Range Interpretation Comments POC-GLUCOSE METER 197 mg/dL 70-110 H : TESTED A T [facility] 6720 (BEAKER) (test code = [facility], 1538) 80952: Panel Machine Setter/Techni maikol ID = [id number] for Co rtez, Jeannie POCT-GLUCOSE [id number] 08:17:56 Test Item Value Reference Range Interpretation Comments POC-GLUCOSE METER 110 mg/dL 70-110 : TESTED A T [facility] 6720 (BEAKER) (test code = [facility], 1538) 58984: Panel Machine Setter/Techni maikol ID = [id number] for Co rtez, Jeannie POCT-GLUCOSE [id number] 06:54:21 Test Item Value Reference Range Interpretation Comments POC-GLUCOSE METER 163 mg/dL 70-110 H : TESTED A T [facility] 6720 (BEAKER) (test code = [facility], 1538) 61208: Panel Machine Setter/Techni maikol ID = [id number] for PI TTS, VITALY HEPATIC FUNCTION [id number] 06:47:45 Test Item Value Reference Range Interpretation [...] code = 138 U/L 6-55 H 347) Panel Machine Setter ID - GENI GBASIC METABOLIC [id number] 06:47:44 Test Item Value Reference Range Interpretation [...] not appl icable for dialysis patien ts Panel Machine Setter ID - GENI [id number] 06:47:44 Test Item Value Reference Range Interpretation Comments MAGNESIUM (BEAKER) (test code = 1.9 mg/dL 1.6-2.6 627) Panel Machine Setter ID - GENI GCBC (HEMOGRAM ONLY)2022-08-30 06:39:40 [...] CELLS (BEAKER) (test code = 413) POCT-GLUCOSE [id number] 19:58:44 Test Item Value Reference Range Interpretation Comments POC-GLUCOSE METER 159 mg/dL 70-110 H : TESTED A T [facility] 6720 ([facility]) (test code = [facility], 153) 73868: Panel Machine Setter/Techni maikol ID = [id number] for PI TTS, VITALY POCT-GLUCOSE [id number] 17:28:51 Test Item Value Reference Range Interpretation Comments POC-GLUCOSE METER 116 mg/dL 70-110 H : TESTED A T [facility] 6720 (BEAKER) (test code = [facility], 153) 27334: Panel Machine Setter/Techni maikol ID = [id number] for Co rtez, Bronte POCT-GLUCOSE [id number] 12:10:59 Test Item Value Reference Range Interpretation Comments POC-GLUCOSE METER 171 mg/dL 70-110 H : TESTED A T [facility] 6720 (BEAKER) (test code = [facility], 153) 87467: Panel Machine Setter/Techni maikol ID = [id number] for Co rtez, [place] POCT-GLUCOSE [id number] 07:25:17 Test Item Value Reference Range Interpretation Comments POC-GLUCOSE METER 148 mg/dL 70-110 H : TESTED A T [facility] 6720 (BEAKER) (test code = [facility], 153) 50715: Panel Machine Setter/Techni maikol ID = [id number] for Co rtez, Bronte HEPATIC FUNCTION [id number] 06:46:57 Test Item Value Reference Range Interpretation [...] code = 184 U/L 6-55 H 347) Panel Machine Setter ID - [id number] 06:46:56 Test Item Value Reference Range Interpretation Comments MAGNESIUM (BEAKER) (test code = 2.0 mg/dL 1.6-2.6 627) Panel Machine Setter ID - MARCOBASIC METABOLIC [id number] 06:46:55 Test Item Value Reference Range Interpretation [...] not appl icable for dialysis patien ts Panel Machine Setter ID - MARCOCBC (HEMOGRAM ONLY)2022-08-29 06:29:10 Test [...] H (BEAKER) (test code = 413) POCT-GLUCOSE [id number] 17:34:37 Test Item Value Reference Range Interpretation Comments POC-GLUCOSE METER 145 mg/dL 70-110 H : TESTED A T [facility] 6720 (BEAKER) (test code = [facility], 1538) 92581: Panel Machine Setter/Techni maikol ID = [id number] for Ba rrera, Yolanda POCT-GLUCOSE [id number] 17:07:24 Test Item Value Reference Range Interpretation Comments POC-GLUCOSE METER 169 mg/dL 70-110 H : TESTED A T [facility] 6720 (BEAKER) (test code = [facility], 1538) 12563: Panel Machine Setter/Techni maikol ID = [id number] for Ba rrera, Yolanda POCT-GLUCOSE [id number] 17:07:17 Test Item Value Reference Range Interpretation Comments POC-GLUCOSE METER 116 mg/dL 70-110 H : TESTED A T [facility] 6720 (BEAKER) (test code = BHAVNA GONZAL[place], 1538) 14465: Panel Machine Setter/Techni maikol ID = [id number] for Yolanda Marx 2D Echo W/Doppler(CW/PW/Color)2022-08-28 16:13:58Ejection FractionSLEH ECHO HEARTLAB [facility] (BNP)2022-08-28 14:35:14 Test Item Value Reference Range Interpretation Comments B-TYPE NATRIURETIC PEPTIDE (BEAKER) 909 pg/mL 0-100 H (test code = 700) Panel Machine Setter ID - BSLACTIC ACID, [id number] 14:04:07 Test Item Value Reference Range Interpretation Comments LACTATE BLOOD VENOUS (2) (BEAKER) 2.68 mmol/L 0.50-2.00 H (test code = 2872) Panel Machine Setter ID - MARCOHEPATIC FUNCTION [id number] 08:21:33 Test Item Value Reference Range Interpretation [...] code = 137 U/L 6-55 H 347) Panel Machine Setter ID - BSBASIC METABOLIC [id number] 08:21:32 Test Item Value Reference Range Interpretation [...] not appl icable for dialysis patien ts Panel Machine Setter ID - [id number] 08:21:32 Test Item Value Reference Range Interpretation Comments MAGNESIUM (BEAKER) (test code = 2.0 mg/dL 1.6-2.6 627) Panel Machine Setter ID - BSCBC (HEMOGRAM ONLY)2022-08-28 05:47:54 Test [...] = 413) RAD, CHEST, 1 VIEW, NON [id number] 22:52:00Reason for exam:->chest tube removalShould this be performed at the bedside?->Yes [facility] : 1950 Sex: MFINAL REPORT Chest, 1 view, 08/27/2022 3:00 PM. History: Chest 2 removal. Comparison: X-ray from today. Discussion: The cardiac silhouette is prominent but stable. Bibasilar hazy opacities are present, slightly increased on the right. 2 left-sided chest tubes remain in place. There isno pneumothorax. Skinfold overlies the left lateral chest. Median sternotomy wires are present. IMPRESSION: Slightly increased right basilar opacity. No evidence of pneumothorax.. Signed: Aubrey Handy Verified Date/Time: 08/27/2022 22:52:45 Electronically signed by: AUBREY HANDY M.D. on08/27/2022 10:52 PM POCT-GLUCOSE [id number] 21:10:23 Test Item Value Reference Range Interpretation Comments POC-GLUCOSE METER 145 mg/dL 70-110 H : TESTED A T [facility] 6720 (BEAKER) (test code = [facility], 153) 82356: Panel Machine Setter/Techni maikol ID = [id number] for GAEL ALVA BASIC METABOLIC [id number] 17:49:06 Test Item Value Reference Range Interpretation [...] not appl icable for dialysis patien ts Panel Machine Setter ID - BSOperator ID - BSPOCT-GLUCOSE [id number] 17:48:28 Test Item Value Reference Range Interpretation Comments POC-GLUCOSE METER 146 mg/dL 70-110 H : TESTED A T [facility] 6720 (BEAKER) (test code = [facility], 153) [address]: Panel Machine Setter/Techni maikol ID = [id number] for Co rtez, Jeannie POCT-GLUCOSE [id number] 12:51:28 Test Item Value Reference Range Interpretation Comments POC-GLUCOSE METER 201 mg/dL 70-110 H : TESTED A T [facility] 6720 (NEO) (test code = BHAVNA Gutiérrez [facility], 1538) [address]86: Panel Machine Setter/Techni maikol ID = [id number] for Co Harshad paulsonavia POCT-GLUCOSE [id number] 07:50:17 Test Item Value Reference Range Interpretation Comments POC-GLUCOSE METER 147 mg/dL 70-110 H : Notified RN/MD: (NEO) (test code = TESTED AT [facility] 6720 1538) [facility], [address]: Panel Machine Setter/Techni maikol ID = [id number] for Samantha Cortes RAD, CHEST, 1 VIEW, NON [id number] 07:18:00Reason for exam:->Post OpShould this be performed at the bedside?->Yes [facility] : 1950 Sex: MFINAL REPORT RAD, CHEST, 1 VIEW, NON DEPT INDICATION: Post Op COMPARISON: Prior day's exam FINDINGS: Portable frontal view of the chest. IMPRESSION: Support Lines: Tinnie-Robert catheter removed with remaining sheath. Otherwise stable support apparatus. Lungs and pleura: Unchanged airspace and pleural opacities, greater on the left. No pneumothorax.Heart and mediastinum: Stable contours. Additional findings: None. Signed: Adelfo Sosa Verified Date/Time: 08/27/2022 07:18:19 HEPATIC FUNCTION [id number] 03:37:31 Test Item Value Reference Range Interpretation [...] code = 72 U/L 6-55 H 347) Panel Machine Setter ID - [id number] 03:37:30 Test Item Value Reference Range Interpretation Comments MAGNESIUM (BEAKER) (test code = 2.1 mg/dL 1.6-2.6 627) Panel Machine Setter ID - [id number] 03:37:30 Test Item Value Reference Range Interpretation Comments PHOSPHORUS (BEAKER) (test code = 3.0 mg/dL 2.3-4.7 604) Panel Machine Setter ID - MMBASIC METABOLIC [id number] 03:37:29 Test Item Value Reference Range Interpretation [...] not appl icable for dialysis patien ts Panel Machine Setter ID - MMCBC W/PLT COUNT & AUTO [id number] 03:10:41 Test Item Value Reference Range Interpretation [...] 0.00-1.00 PERCENT (BEAKER) (test code = 2801) [id number] 03:10:40 Test Item Value Reference Range Interpretation [...] is 2.5-3.5 for patients with mechanical heart valves.[id number] 03:10:04 Test Item Value Reference Range Interpretation Comments FIBRINOGEN LEVEL (BEAKER) (test 572 mg/dl 225-434 H code = 658) Lactic Acid, [id number] 03:09:22 Test Item Value Reference Range Interpretation Comments Lactate, Art (test code = 1.7 mmol/L 0.5-2.0 7924) SWEETIE (test code = SWEETIE) Panel Machine Setter ID - BS Lab Interpretation (test Normal code = 48917-3) [facility], [id number] 03:09:22 Test Item Value Reference Range Interpretation Comments LACTATE BLOOD ARTERIAL (2) 1.7 mmol/L 0.5-2.0 (BEAKER) (test code = 2874) Panel Machine Setter ID - BSCALCIUM, [id number] 02:50:58 Test Item Value Reference Range Interpretation Comments CALCIUM IONIZED (BEAKER) (test 1.07 mmol/L 1.12-1.27 L code = 698) PH, BLOOD (BEAKER) (test code = 7.45 1810) POCT-GLUCOSE [id number] 00:17:05 Test Item Value Reference Range Interpretation Comments POC-GLUCOSE METER 142 mg/dL 70-110 H : TESTED A T [facility] 6720 (BEAKER) (test code = [facility], 1538) [address]: Panel Machine Setter/Techni maikol ID = [id number] for August Prepare Leuko-Red [id number] 23:55:00 Test Item Value Reference Range Interpretation Comments CROSSMATCH (test code = 2264) COMPATIBLE Unit ABO (test code = O Pos 3461305) UNIT NUMBER (test code = [id number] 934-0) Status (test code = 9814322) TX_TIMEINCDOS PALOS Blood Bank Product (test code RED BLOOD CELLS = 2263) PRODUCT CODE (test code = K8875W35 933-2) [facility]PO[facility] [id number] 19:03:30 Test Item Value Reference Range Interpretation Comments POC-GLUCOSE METER 141 mg/dL 70-110 H : Notified RN/MD: (BEAKER) (test code = TESTED AT [facility] 6720 1538) [facility], [address]: Panel Machine Setter/Techni maikol ID = [id number] for Belkys hutson Samantha [id number] 17:43:19 Test Item Value Reference Range Interpretation Comments PHOSPHORUS (BEAKER) (test code = 3.1 mg/dL 2.3-4.7 604) Panel Machine Setter ID - BSBASIC METABOLIC [id number] 17:43:18 Test Item Value Reference Range Interpretation [...] not appl icable for dialysis patien ts Panel Machine Setter ID - [id number] 17:43:18 Test Item Value Reference Range Interpretation Comments MAGNESIUM (BEAKER) (test code = 2.2 mg/dL 1.6-2.6 627) Panel Machine Setter ID - BSCBC (HEMOGRAM ONLY)2022 17:30:14 Test [...] 0-0 (BEAKER) (test code = 413) CALCIUM, [id number] 17:22:49 Test Item Value Reference Range Interpretation Comments CALCIUM IONIZED (BEAKER) (test 1.11 mmol/L 1.12-1.27 L code = 698) PH, BLOOD (BEAKER) (test code = 7.44 1810) POCT-GLUCOSE [id number] 12:11:34 Test Item Value Reference Range Interpretation Comments POC-GLUCOSE METER 155 mg/dL 70-110 H : Notified RN/MD: (NEO) (test code = TESTED AT [facility] 8642 6513) [facility], [address]: Panel Machine Setter/Techni maikol ID = [id number] for Samantha Cortes RAD, CHEST, 1 VIEW, NON [id number] 10:54:00Reason for exam:->Post OpShould this be performed at the bedside?->Yes [facility] : 1950 Sex: MFINAL REPORT RAD, CHEST, 1 VIEW, NON DEPT INDICATION: Post Op COMPARISON: Prior day's exam FINDINGS: Portable frontal view of the chest. IMPRESSION: Support Lines: No significant change. Lungs and pleura: Unchanged airspace and pleural opacities, greater on the left. No pneumothorax.Heart and mediastinum: Stable contours. Additional findings: None. Signed: Adelfo Sosa MDReport Verified Date/Time: 2022 10:54:59 LACTIC ACID, [id number] 09:19:53 Test Item Value Reference Range Interpretation Comments LACTATE BLOOD ARTERIAL (2) 1.1 mmol/L 0.5-2.0 (BEAKER) (test code = 2874) Panel Machine Setter ID - JUANA WOXYGEN SATURATION, [id number] 09:11:30 Test Item Value Reference Range Interpretation Comments O2 SATURATION (MEASURED) (BEAKER) 66.1 % (test code = 1455) Manual [id number] 07:09:31 Test Item Value Reference Range Interpretation [...] = 3438) SWEETIE (test code = SWEETIE) Panel Machine Setter ID - [id number] ID - [email or web address] comments: Slide comments: Lab Interpretation Abnormal (test code = 60250-7) [facility](CELLAVISION MANUAL DIFF)2022 07:09:31 Test Item Value [...] CONCENTRATION Decreased (CELLAVISION)(BEAKER) (test code = 3438) Panel Machine Setter ID - [id number] ID - [email or web address] comments: Slide comments:CBC W/PLT COUNT & AUTO [id number] 07:09:26 Test Item Value Reference Range Interpretation [...] WBC 0-0 (test code = 413) POCT-GLUCOSE [id number] 06:11:43 Test Item Value Reference Range Interpretation Comments POC-GLUCOSE METER 143 mg/dL 70-110 H : [facility] ([facility]ER[facility] (test code = [place], 1538) [address]: Panel Machine Setter/Techni maikol ID = [id number] for Karishma Lazar OXYGEN SATURATION, [id number] 06:09:18 Test Item Value Reference Range Interpretation Comments O2 SATURATION (MEASURED) (BEAKER) 80.9 % (test code = 1455) [id number] 03:27:36 Test Item Value Reference Range Interpretation [...] is 2.5-3.5 for patients with mechanical heart valves.[id number] 03:26:55 Test Item Value Reference Range Interpretation Comments FIBRINOGEN LEVEL (BEAKER) (test 479 mg/dl 225-434 H code = 658) [id number] 03:21:57 Test Item Value Reference Range Interpretation Comments PHOSPHORUS (BEAKER) (test code = 4.0 mg/dL 2.3-4.7 604) Panel Machine Setter ID - ADMINHEPATIC FUNCTION [id number] 03:21:57 Test Item Value Reference Range Interpretation [...] (test code = 29 U/L 6-55 347) Panel Machine Setter ID - ADMINBASIC METABOLIC [id number] 03:21:56 Test Item Value Reference Range Interpretation [...] not appl icable for dialysis patien ts Panel Machine Setter ID - [id number] 03:21:56 Test Item Value Reference Range Interpretation Comments MAGNESIUM (BEAKER) (test code = 2.1 mg/dL 1.6-2.6 627) Panel Machine Setter ID - ADMINLACTIC ACID, [id number] 03:10:07 Test Item Value Reference Range Interpretation Comments LACTATE BLOOD ARTERIAL (2) 1.1 mmol/L 0.5-2.0 (BEAKER) (test code = 2874) Panel Machine Setter ID - JUANA TRAN SATURATION, [id number] 03:02:28 Test Item Value Reference Range Interpretation Comments O2 SATURATION (MEASURED) (BEAKER) 74.4 % (test code = 1455) Blood gas, [id number] 03:01:49 Test Item Value Reference Range Interpretation [...] 32 Lab Interpretation Abnormal (test code = 58770-9) [facility] HospitalBLOOD GAS, [id number] 03:01:49 Test Item Value Reference Range Interpretation [...] (BEAKER) (test code = 1819) 32.0 CALCIUM, [id number] 03:00:31 Test Item Value Reference Range Interpretation Comments CALCIUM IONIZED (BEAKER) (test 1.15 mmol/L 1.12-1.27 code = 698) PH, BLOOD (BEAKER) (test code = 7.43 1810) Prepare [id number] 23:54:00 Test Item Value Reference Range Interpretation Comments CROSSMATCH (test code = COMPATIBLE 2264) Unit ABO (test code = O Pos 6576214) UNIT NUMBER (test code = [id number] 934-0) Status (test code = RETURNED FROM ISSUE 0412817) Blood Bank Product (test RED BLOOD CELLS code = 2263) PRODUCT CODE (test code = V8405P85 933-2) [facility] HospitalPOCT-GLUCOSE [id number] 23:43:32 Test Item Value Reference Range Interpretation Comments POC-GLUCOSE METER 141 mg/dL 70-110 H : TESTED A T [facility] 6720 (BEAKER) (test code = [facility], 1538) [address]: Panel Machine Setter/Techni maikol ID = [id number] for Karishma Lazar CALCIUM, [id number] 23:42:33 Test Item Value Reference Range Interpretation Comments CALCIUM IONIZED (BEAKER) (test 1.17 mmol/L 1.12-1.27 code = 698) PH, BLOOD (BEAKER) (test code = 7.37 1810) OXYGEN SATURATION, [id number] 23:41:54 Test Item Value Reference Range Interpretation Comments O2 SATURATION (MEASURED) (BEAKER) 72.8 % (test code = 1455) CALCIUM, [id number] 20:49:52 Test Item Value Reference Range Interpretation Comments CALCIUM IONIZED (BEAKER) (test 1.09 mmol/L 1.12-1.27 L code = 698) PH, BLOOD (BEAKER) (test code = 7.32 1810) HGB/HCT (H&H)-Stat [id number] 20:49:51 Test Item Value Reference Range Interpretation Comments Hemoglobin (test code = 9.3 See_Comment L [Au tomated message] 718-7) The system [employer] generated this result transmitted ref erence range: 13.0 - 1 6.8 GM/DL. The refe rence range was not u sed to interpret this result as normal/abnor mal. Hematocrit (test code = 27.0 % 40.0-50.0 L 4544-3) Lab Interpretation (test Abnormal code = 32284-4) [facility] HospitalBLOOD GAS, [id number] 20:49:51 Test Item Value Reference Range Interpretation [...] = 1819) 32.0 HGB/HCT (H&H) - STAT [id number] 20:49:51 Test Item Value Reference Range Interpretation Comments HEMOGLOBIN (BEAKER) (test code = 9.3 GM/DL 13.0-16.8 L 410) HEMATOCRIT (BEAKER) (test code = 27.0 % 40.0-50.0 L 411) Sodium Na-Stat [id number] 20:43:04 Test Item Value Reference Range Interpretation Comments Sodium (test code = 2951-2) 136 meq/L 136-145 Lab Interpretation (test code = Normal 78019-6) [facility] HospitalPotassium-Stat [id number] 20:43:04 Test Item Value Reference Range Interpretation Comments Potassium (test code = 2823-3) 4.2 meq/L 3.6-5.5 Lab Interpretation (test code = Normal 58167-2) [facility] [id number] 20:43:04 Test Item Value Reference Range Interpretation Comments SODIUM (BEAKER) (test code = 381) 136 meq/L 136-145 POTASSIUM-STAT [id number] 20:43:04 Test Item Value Reference Range Interpretation Comments POTASSIUM (BEAKER) (test code = 4.2 meq/L 3.6-5.5 379) Glucose-Stat [id number] 20:43:03 Test Item Value Reference Range Interpretation Comments Glucose (test code = 2345-7) 130 mg/dL 70-110 H Lab Interpretation (test code = Abnormal 81872-5) [facility] HospitalGLUCOSE-STAT [id number] 20:43:03 Test Item Value Reference Range Interpretation Comments GLUCOSE RANDOM (BEAKER) (test code 130 mg/dL 70-110 H = 652) POCT-GLUCOSE [id number] 18:28:36 Test Item Value Reference Range Interpretation Comments POC-GLUCOSE METER 99 mg/dL 70-110 : TESTED A T [facility] 6720 (BEAKER) (test code = [place], 1538) [address]: Panel Machine Setter/Techni maikol ID = [id number] for RIOS OS ATUL KELLEY [id number] 16:54:08 Test Item Value Reference Range Interpretation Comments MAGNESIUM (BEAKER) (test code = 2.2 mg/dL 1.6-2.6 627) Panel Machine Setter ID - [id number] 16:54:08 Test Item Value Reference Range Interpretation Comments PHOSPHORUS (BEAKER) (test code = 4.1 mg/dL 2.3-4.7 604) Panel Machine Setter ID - BSBASIC METABOLIC [id number] 16:54:07 Test Item Value Reference Range Interpretation [...] not appl icable for dialysis patien ts Panel Machine Setter ID - BSLACTIC ACID, [id number] 16:48:41 Test Item Value Reference Range Interpretation Comments LACTATE BLOOD ARTERIAL (2) 1.5 mmol/L 0.5-2.0 (BEAKER) (test code = 2874) Panel Machine Setter ID - [id number] 16:42:20 Test Item Value Reference Range Interpretation Comments ACTIVATED CLOTTING TIME 444 sec : 74 -137 seconds, (BEAKER) (test code = Baseli ne: TESTED AT 441) [address], [address]: Panel Machine Setter/Techni maikol ID = [id number] for WILLIAM POTTER [id number] 16:42:20 Test Item Value Reference Range Interpretation Comments ACTIVATED CLOTTING TIME 498 sec : 74 -137 seconds, (BEAKER) (test code = Baseli ne: TESTED AT 441) [facility] 6720 [facility], [address]: Panel Machine Setter/Techni maikol ID = [id number] for WILLIAM POTTER [id number] 16:42:19 Test Item Value Reference Range Interpretation Comments ACTIVATED CLOTTING TIME 492 sec : 74 -137 seconds, (BEAKER) (test code = Baseli ne: TESTED AT 441) [facility] 6720 [facility], [address]: Panel Machine Setter/Techni maikol ID = [id number] for WILLIAM POTTER POC ACTIVATED CLOTTING [id number] 16:41:45 Test Item Value Reference Range Interpretation Comments Activated Clotting Time 113 sec : 74 -137 seconds, (test code = 3184-9) Baselin e: TESTED AT [address], [facility] 30: Panel Machine Setter/Techni maikol ID = [id number] for WILLIAM POTTER [facility][id number] 16:41:45 Test Item Value Reference Range Interpretation Comments ACTIVATED CLOTTING TIME 113 sec : 74 -137 seconds, (BEAKER) (test code = Baseli ne: TESTED AT 441) [address], [facility] 30: Panel Machine Setter/Techni maikol ID = [id number] for WILLIAM POTTER [id number] 16:41:44 Test Item Value Reference Range Interpretation Comments ACTIVATED CLOTTING TIME 438 sec : 74 -137 seconds, (BEAKER) (test code = Baseli ne: TESTED AT 441) [address], [facility] 30: Panel Machine Setter/Techni maikol ID = [id number] for WILLIAM POTTER [id number] 16:41:44 Test Item Value Reference Range Interpretation Comments ACTIVATED CLOTTING TIME 402 sec : 74 -137 seconds, (BEAKER) (test code = Baseli ne: TESTED AT 441) [address], [facility] 30: Panel Machine Setter/Techni maikol ID = [id number] for WILLIAM POTTER [id number] 16:41:43 Test Item Value Reference Range Interpretation Comments ACTIVATED CLOTTING TIME 137 sec : 74 -137 seconds, (BEAKER) (test code = Baseli ne: TESTED AT [facility]) [address], [facility] 30: Panel Machine Setter/Techni maikol ID = [id number] for WILLIAM POTTER CBC (HEMOGRAM ONLY)2022-08-25 16:36:09 [...] 0-0 (BEAKER) (test code = 413) CALCIUM, [id number] 16:07:02 Test Item Value Reference Range Interpretation Comments CALCIUM IONIZED (BEAKER) (test 1.10 mmol/L 1.12-1.27 L code = 698) PH, BLOOD (BEAKER) (test code = 7.44 1810) POCT-GLUCOSE [id number] 16:04:46 Test Item Value Reference Range Interpretation Comments POC-GLUCOSE METER 115 mg/dL 70-110 H : TESTED A T [facility] 6720 (BEAKER) (test code = [facility], 1538) [address]: Panel Machine Setter/Techni amikol ID = [id number] for ReynaldoMxBiodevicesYan, X avier LACTIC ACID, [id number] 13:00:33 Test Item Value Reference Range Interpretation Comments LACTATE BLOOD ARTERIAL (2) 2.2 mmol/L 0.5-2.0 H (BEAKER) (test code = 2874) Panel Machine Setter ID - MARCOPOCT-GLUCOSE [id number] 12:25:36 Test Item Value Reference Range Interpretation Comments POC-GLUCOSE METER 137 mg/dL 70-110 H : TESTED A T [facility] 6720 (BEAKER) (test code = [facility], 1538) [address]: Panel Machine Setter/Techni maikol ID = [id number] for Hover-Yan, X avier BASIC METABOLIC [id number] 09:44:09 Test Item Value Reference Range Interpretation [...] not appl icable for dialysis patien ts Panel Machine Setter ID - MARCOLACTIC ACID, [id number] 09:41:56 Test Item Value Reference Range Interpretation Comments LACTATE BLOOD ARTERIAL (2) 3.2 mmol/L 0.5-2.0 H (BEAKER) (test code = 2874) Panel Machine Setter ID - MARCOBLOOD GAS, [id number] 09:03:19 Test Item Value Reference Range Interpretation [...] (BEAKER) (test code = 1819) 100.0 CALCIUM, [id number] 09:03:17 Test Item Value Reference Range Interpretation Comments CALCIUM IONIZED (BEAKER) (test 1.17 mmol/L 1.12-1.27 code = 698) PH, BLOOD (BEAKER) (test code = 7.43 1810) OXYGEN SATURATION, [id number] 09:03:15 Test Item Value Reference Range Interpretation Comments O2 SATURATION (MEASURED) (BEAKER) 61.8 % (test code = 1455) POCT-GLUCOSE [id number] 08:59:05 Test Item Value Reference Range Interpretation Comments POC-GLUCOSE METER 162 mg/dL 70-110 H : TESTED A T [facility] 6720 (BEAKER) (test code = [facility], 1538) [address]: Panel Machine Setter/Techni maikol ID = [id number] for Hover-Yan, X avier POCT-GLUCOSE [id number] 07:38:28 Test Item Value Reference Range Interpretation Comments POC-GLUCOSE METER 175 mg/dL 70-110 H : TESTED A T [facility] 6720 (BEAKER) (test code = [facility], 1538) [address]: Panel Machine Setter/Techni maikol ID = [id number] for Hover-Yan, X avier RAD, CHEST, 1 VIEW, NON [id number] 07:17:00Reason for exam:->Post OpShould this be performed at the bedside?->Yes [facility] : 1950 Sex: MFINAL REPORT RAD, CHEST, 1 VIEW, NON DEPT INDICATION: Post Op COMPARISON: Prior day's exam FINDINGS: Portable frontal view of the chest. IMPRESSION: Support Lines: ET tube and enterictube removed. Tinnie-Robert catheter tip overlies the pulmonary outflow tract. Otherwise, stable supportapparatus. Lungs and pleura: No significant change in left greater than right airspace and pleural opacities. No pneumothorax.Heart and mediastinum: Stable contours. Additional findings: None. Signed: Adelfo Sosa Verified Date/Time: 08/25/2022 07:17:45 POCT-GLUCOSE [id number] 06:39:18 Test Item Value Reference Range Interpretation Comments POC-GLUCOSE METER 177 mg/dL 70-110 H : TESTED A T [facility] 6720 (BEAKER) (test code = [facility] Breaker [facility], 1538) [address]: Panel Machine Setter/Techni maikol ID = [id number] for Marina ernestina (contract), [facility] POCT-GLUCOSE [id number] 03:31:00 Test Item Value Reference Range Interpretation Comments POC-GLUCOSE METER 160 mg/dL 70-110 H : TESTED A T [facility] 6720 (BEAKER) (test code = [facility] Breaker [facility], 1538) [address]: Panel Machine Setter/Techni maikol ID = [id number] for Marina ernestina (contract), [facility] HEPATIC FUNCTION [id number] 03:00:46 Test Item Value Reference Range Interpretation [...] (test code = 26 U/L 6-55 347) Panel Machine Setter ID - [id number] 03:00:45 Test Item Value Reference Range Interpretation Comments MAGNESIUM (BEAKER) (test code = 2.3 mg/dL 1.6-2.6 627) Panel Machine Setter ID - [id number] 03:00:45 Test Item Value Reference Range Interpretation Comments PHOSPHORUS (BEAKER) (test code = 4.3 mg/dL 2.3-4.7 604) Panel Machine Setter ID - MARCOBASIC METABOLIC [id number] 03:00:44 Test Item Value Reference Range Interpretation [...] not appl icable for dialysis patien ts Panel Machine Setter ID - MARCOOXYGEN SATURATION, [id number] 02:50:03 Test Item Value Reference Range Interpretation Comments O2 SATURATION (MEASURED) (BEAKER) 74.2 % (test code = 1455) LACTIC ACID, [id number] 02:49:22 Test Item Value Reference Range Interpretation Comments LACTATE BLOOD ARTERIAL (2) 2.2 mmol/L 0.5-2.0 H (BEAKER) (test code = 2874) Panel Machine Setter ID - [id number]/[id number] 02:47:18 Test Item Value Reference Range Interpretation [...] for patients with mechanical heart valves.BLOOD GAS, [id number] 02:47:06 Test Item Value Reference Range Interpretation [...] TEMPERATURE (BEAKER) 37.0 (test code = 1818) [id number] 02:47:01 Test Item Value Reference Range Interpretation Comments FIBRINOGEN LEVEL (BEAKER) (test 306 mg/dl 225-434 code = 658) CALCIUM, [id number] 02:46:38 Test Item Value Reference Range Interpretation Comments CALCIUM IONIZED (BEAKER) (test 1.18 mmol/L 1.12-1.27 code = 698) PH, BLOOD (BEAKER) (test code = 7.46 1810) CBC W/PLT COUNT & AUTO [id number] 02:39:48 Test Item Value Reference Range Interpretation [...] PERCENT (BEAKER) (test code = 2801) POCT-GLUCOSE [id number] 01:27:59 Test Item Value Reference Range Interpretation Comments POC-GLUCOSE METER 167 mg/dL 70-110 H : TESTED A T [facility] 6720 (BEAKER) (test code = [facility] Breaker [facility], 1538) [address]: Panel Machine Setter/Techni maikol ID = [id number] for Marina do (contract), [employer] POCT-GLUCOSE [id number] 00:21:36 Test Item Value Reference Range Interpretation Comments POC-GLUCOSE METER 162 mg/dL 70-110 H : TESTED A T [facility] 6720 (BEAKER) (test code = [facility] Breaker [facility], 1538) [address]: Panel Machine Setter/Techni maikol ID = [id number] for Marina do (contract), [employer] BLOOD GAS, [id number] 23:17:40 Test Item Value Reference Range Interpretation [...] (BEAKER) 37.0 (test code = 1818) POCT-GLUCOSE [id number] 23:16:58 Test Item Value Reference Range Interpretation Comments POC-GLUCOSE METER 164 mg/dL 70-110 H : TESTED A T [facility] 6720 (BEAKER) (test code = [facility] Breaker [facility], 1538) [address]: Panel Machine Setter/Techni maikol ID = [id number] for Marina do (contract), Jaime armas POCT-GLUCOSE [id number] 22:05:48 Test Item Value Reference Range Interpretation Comments POC-GLUCOSE METER 149 mg/dL 70-110 H : TESTED A T [facility] 6720 (BEAKER) (test code = [place], 1538) [address]: Panel Machine Setter/Techni maikol ID = [id number] for Marina do (contract), Jaime armas LACTIC ACID, [id number] 21:28:41 Test Item Value Reference Range Interpretation Comments LACTATE BLOOD ARTERIAL (2) 2.9 mmol/L 0.5-2.0 H (BEAKER) (test code = 2874) Panel Machine Setter ID - BSHGB/HCT (H&H) - STAT [id number] 21:13:01 Test Item Value Reference Range Interpretation Comments HEMOGLOBIN (BEAKER) (test code = 9.7 GM/DL 13.0-16.8 L 410) HEMATOCRIT (BEAKER) (test code = 29.0 % 40.0-50.0 L 411) BLOOD GAS, [id number] 21:13:00 Test Item Value Reference Range Interpretation [...] (BEAKER) (test code = 1819) 100.0 POTASSIUM-STAT [id number] 21:12:04 Test Item Value Reference Range Interpretation Comments POTASSIUM (BEAKER) (test code = 4.6 meq/L 3.6-5.5 379) GLUCOSE-STAT [id number] 21:12:03 Test Item Value Reference Range Interpretation Comments GLUCOSE RANDOM (BEAKER) (test code 172 mg/dL 70-110 H = 652) SODIUM NA-STAT [id number] 21:12:03 Test Item Value Reference Range Interpretation Comments SODIUM (BEAKER) (test code = 381) 138 meq/L 136-145 LACTIC ACID, [id number] 20:00:51 Test Item Value Reference Range Interpretation Comments LACTATE BLOOD ARTERIAL (2) 3.9 mmol/L 0.5-2.0 H (BEAKER) (test code = 2874) Panel Machine Setter ID - [id number] 19:59:57 Test Item Value Reference Range Interpretation Comments POC-GLUCOSE METER 132 mg/dL 70-110 H : [facility] ([facility]ER) (test code = BHAVNA GONZALES [place], 1538) 47879: Panel Machine Setter/Techni maikol ID = [id number] for Marina do (contract), Jaime armas CALCIUM, [id number] 19:49:18 Test Item Value Reference Range Interpretation Comments CALCIUM IONIZED (BEAKER) (test 1.08 mmol/L 1.12-1.27 L code = 698) PH, BLOOD (BEAKER) (test code = 7.43 1810) HGB/HCT (H&H) - STAT [id number] 19:49:06 Test Item Value Reference Range Interpretation Comments HEMOGLOBIN (BEAKER) (test code = 10.1 GM/DL 13.0-16.8 L 410) HEMATOCRIT (BEAKER) (test code = 30.0 % 40.0-50.0 L 411) BLOOD GAS, [id number] 19:49:05 Test Item Value Reference Range Interpretation [...] (BEAKER) (test code = 1819) 21.0 POTASSIUM-STAT [id number] 19:48:11 Test Item Value Reference Range Interpretation Comments POTASSIUM (BEAKER) (test code = 4.4 meq/L 3.6-5.5 379) GLUCOSE-STAT [id number] 19:48:10 Test Item Value Reference Range Interpretation Comments GLUCOSE RANDOM (BEAKER) (test code 163 mg/dL 70-110 H = 652) SODIUM NA-STAT [id number] 19:48:10 Test Item Value Reference Range Interpretation Comments SODIUM (BEAKER) (test code = 381) 138 meq/L 136-145 LACTIC ACID, [id number] 17:37:08 Test Item Value Reference Range Interpretation Comments LACTATE BLOOD ARTERIAL (2) 4.2 mmol/L 0.5-2.0 HH (BEAKER) (test code = 2874) Panel Machine Setter ID - BSHGB/HCT (H&H) - STAT [id number] 17:21:22 Test Item Value Reference Range Interpretation Comments HEMOGLOBIN (BEAKER) (test code = 9.7 GM/DL 13.0-16.8 L 410) HEMATOCRIT (BEAKER) (test code = 29.0 % 40.0-50.0 L 411) BLOOD GAS, [id number] 17:21:21 Test Item Value Reference Range Interpretation [...] (test code = 1819) 60.0 SODIUM NA-STAT [id number] 17:21:08 Test Item Value Reference Range Interpretation Comments SODIUM (BEAKER) (test code = 381) 137 meq/L 136-145 POTASSIUM-STAT [id number] 17:21:08 Test Item Value Reference Range Interpretation Comments POTASSIUM (BEAKER) (test code = 4.1 meq/L 3.6-5.5 379) GLUCOSE-STAT [id number] 17:21:07 Test Item Value Reference Range Interpretation Comments GLUCOSE RANDOM (BEAKER) (test code 149 mg/dL 70-110 H = 652) RAD, CHEST, 1 VIEW, NON [id number] 16:10:00Reason for exam:->post opShould this be performed at the bedside?->Yes [facility] : 1950 Sex: MFINAL REPORT RAD, CHEST, 1 VIEW, NON DEPT TECHNIQUE: Frontal view(s) of the chest.INDICATION: post op COMPARISON: Chest radiograph 08/15/2022 FINDINGS/IMPRESSION: Lines/Tubes: Right IJ Tinnie-Robert catheter is seen with tip at the pulmonary outflow tract. Endotracheal tube is seen. Enteric tube is present with tip below the field of view. Lungs/pleura: Bibasilar atelectasis. Small bilateral pleural effusions. No pneumothorax. Heart and Mediastinum: Unchanged. Soft Tissues and Bones: Unchanged. Signed: Mohsen Gray [facility] Verified Date/Time: 08/24/2022 16:10:03 COMPREHENSIVE METABOLIC [id number] 15:18:28 Test Item Value Reference Range Interpretation [...] not appl icable for dialysis patien ts Panel Machine Setter ID - [id number] 15:18:27 Test Item Value Reference Range Interpretation Comments MAGNESIUM (BEAKER) 1.6 mg/dL 1.6-2.6 Specimen slightly (test code = 627) hemolyzed Panel Machine Setter ID - [id number] 15:18:27 Test Item Value Reference Range Interpretation Comments PHOSPHORUS (BEAKER) 4.6 mg/dL 2.3-4.7 Specimen slightly (test code = 604) hemolyzed Panel Machine Setter ID - [id number]/[id number] 15:11:03 Test Item Value Reference Range Interpretation [...] is 2.5-3.5 for patients with mechanical heart valves.[id number] 15:10:44 Test Item Value Reference Range Interpretation Comments FIBRINOGEN LEVEL (BEAKER) (test 287 mg/dl 225-434 code = 658) PROTHROMBIN TIME/[id number] 15:10:22 Test Item Value Reference Range Interpretation [...] mechanical heart valves.CBC W/PLT COUNT & AUTO [id number] 15:05:20 Test Item Value Reference Range Interpretation [...] (BEAKER) (test code = 413) LACTIC ACID, [id number] 15:05:19 Test Item Value Reference Range Interpretation Comments LACTATE BLOOD 2.3 mmol/L 0.5-2.0 H Specimen sligh tly ARTERIAL (2) (BEAKER) hemoly zed (test code = 2874) Panel Machine Setter ID - BSHGB/HCT (H&H) - STAT [id number] 14:48:09 Test Item Value Reference Range Interpretation Comments HEMOGLOBIN (BEAKER) (test code = 10.8 GM/DL 13.0-16.8 L 410) HEMATOCRIT (BEAKER) (test code = 32.0 % 40.0-50.0 L 411) BLOOD GAS, [id number] 14:48:08 Test Item Value Reference Range Interpretation [...] (BEAKER) (test code = 1819) 50.0 CALCIUM, [id number] 14:47:51 Test Item Value Reference Range Interpretation Comments CALCIUM IONIZED (BEAKER) (test 1.24 mmol/L 1.12-1.27 code = 698) PH, BLOOD (BEAKER) (test code = 7.38 1810) OXYGEN SATURATION, [id number] 14:47:35 Test Item Value Reference Range Interpretation Comments O2 SATURATION (MEASURED) (BEAKER) 72.2 % (test code = 1455) SODIUM NA-STAT [id number] 14:47:14 Test Item Value Reference Range Interpretation Comments SODIUM (BEAKER) (test code = 381) 138 meq/L 136-145 POTASSIUM-STAT [id number] 14:47:14 Test Item Value Reference Range Interpretation Comments POTASSIUM (BEAKER) (test code = 4.4 meq/L 3.6-5.5 379) GLUCOSE-STAT [id number] 14:47:13 Test Item Value Reference Range Interpretation Comments GLUCOSE RANDOM (BEAKER) (test code 204 mg/dL 70-110 H = 652) HGB/HCT (H&H) - STAT [id number] 13:49:15 Test Item Value Reference Range Interpretation Comments HEMOGLOBIN (BEAKER) (test code = 11.7 GM/DL 13.0-16.8 L 410) HEMATOCRIT (BEAKER) (test code = 34.0 % 40.0-50.0 L 411) CALCIUM, [id number] 13:49:14 Test Item Value Reference Range Interpretation Comments CALCIUM IONIZED (BEAKER) (test 1.11 mmol/L 1.12-1.27 L code = 698) PH, BLOOD (BEAKER) (test code = 7.28 1810) BLOOD GAS, [id number] 13:49:14 Test Item Value Reference Range Interpretation [...] (BEAKER) (test code = 1819) 100.0 POTASSIUM-STAT [id number] 13:49:02 Test Item Value Reference Range Interpretation Comments POTASSIUM (BEAKER) (test code = 4.4 meq/L 3.6-5.5 379) SODIUM NA-STAT [id number] 13:49:01 Test Item Value Reference Range Interpretation Comments SODIUM (BEAKER) (test code = 381) 137 meq/L 136-145 GLUCOSE-STAT [id number] 13:48:56 Test Item Value Reference Range Interpretation Comments GLUCOSE RANDOM (BEAKER) (test code 237 mg/dL 70-110 H = 652) [id number] 13:28:17 Test Item Value Reference Range Interpretation Comments PTT (test code = 21512-3) 35.4 See_Comment [ Automated message] The system [employer] generated this result transmitted ref erence range: 22.5 - 3 6.0 seconds. The re ference range was not u sed to interpret this result as normal/abnor mal. Lab Interpretation (test Normal code = 60477-3) [id number] 13:28:17 Test Item Value Reference Range Interpretation Comments PARTIAL THROMBOPLASTIN TIME 35.4 seconds 22.5-36.0 (BEAKER) (test code = 760) [id number] 13:27:53 Test Item Value Reference Range Interpretation Comments FIBRINOGEN LEVEL (BEAKER) (test 336 mg/dl 225-434 code = 658) PROTHROMBIN [id number] 13:27:36 Test Item Value Reference Range Interpretation Comments PROTIME (BEAKER) (test code = 24.7 seconds 11.9-14.2 H 759) INR (BEAKER) (test code = 370) 2.41 <=5.90 RECOMMENDED COUMADIN/WARFARIN INR THERAPY RANGESSTANDARD DOSE: 2.0 - 3.0 Includes: PROPHYLAXIS for venous thrombosis, systemic embolization; TREATMENT for venous thrombosis and/or pulmonary embolus.HIGH RISK: Target INR is 2.5-3.5 for patients with mechanical heart valves.Platelet [id number] 13:24:21 Test Item Value Reference Range Interpretation Comments Platelets (test code 139 See_Comment L OR samp le = 777-3) [Automated message] The system which generated this result transmit ronaldo reference range : 150 - 450 K/CU MM. The reference range was not u sed to interpret th is result as normal/abnormal . SWEETIE (test code = SWEETIE) Panel Machine Setter ID - [id number] Lab Interpretation Abnormal (test code = 34268-1) [facility] [id number] 13:24:21 Test Item Value Reference Range Interpretation Comments PLATELET COUNT (BEAKER) (test 139 K/CU MM 150-450 L OR sample code = 756) Panel Machine Setter ID - [id number] GAS, [id number] 13:06:54 Test Item Value Reference Range Interpretation [...] = 1819) 100.0 HGB/HCT (H&H) - STAT [id number] 13:06:54 Test Item Value Reference Range Interpretation Comments HEMOGLOBIN (BEAKER) (test code = 8.7 GM/DL 13.0-16.8 L 410) HEMATOCRIT (BEAKER) (test code = 26.0 % 40.0-50.0 L 411) CALCIUM, [id number] 13:06:48 Test Item Value Reference Range Interpretation Comments CALCIUM IONIZED (BEAKER) (test 1.27 mmol/L 1.12-1.27 code = 698) PH, BLOOD (BEAKER) (test code = 7.33 1810) GLUCOSE-STAT [id number] 13:06:31 Test Item Value Reference Range Interpretation Comments GLUCOSE RANDOM (BEAKER) (test code 258 mg/dL 70-110 H = 652) POTASSIUM-STAT [id number] 13:06:31 Test Item Value Reference Range Interpretation Comments POTASSIUM (BEAKER) (test code = 5.0 meq/L 3.6-5.5 379) SODIUM NA-STAT [id number] 13:06:30 Test Item Value Reference Range Interpretation Comments SODIUM (BEAKER) (test code = 381) 135 meq/L 136-145 L POTASSIUM-STAT [id number] 12:30:24 Test Item Value Reference Range Interpretation Comments POTASSIUM (BEAKER) (test code = 6.2 meq/L 3.6-5.5 HH 379) BLOOD GAS, [id number] 12:29:36 Test Item Value Reference Range Interpretation [...] = 1819) 80.0 HGB/HCT (H&H) - STAT [id number] 12:29:36 Test Item Value Reference Range Interpretation Comments HEMOGLOBIN (BEAKER) (test code = 8.8 GM/DL 13.0-16.8 L 410) HEMATOCRIT (BEAKER) (test code = 26.0 % 40.0-50.0 L 411) SODIUM NA-STAT [id number] 12:29:18 Test Item Value Reference Range Interpretation Comments SODIUM (BEAKER) (test code = 381) 135 meq/L 136-145 L GLUCOSE-STAT [id number] 12:29:17 Test Item Value Reference Range Interpretation Comments GLUCOSE RANDOM (BEAKER) (test code 253 mg/dL 70-110 H = 652) POTASSIUM-STAT [id number] 12:00:04 Test Item Value Reference Range Interpretation Comments POTASSIUM (BEAKER) (test code = 6.5 meq/L 3.6-5.5 HH 379) HGB/HCT (H&H) - STAT [id number] 11:58:32 Test Item Value Reference Range Interpretation Comments HEMOGLOBIN (BEAKER) (test code = 9.0 GM/DL 13.0-16.8 L 410) HEMATOCRIT (BEAKER) (test code = 26.0 % 40.0-50.0 L 411) BLOOD GAS, [id number] 11:58:31 Test Item Value Reference Range Interpretation [...] (test code = 1819) 70.0 SODIUM NA-STAT [id number] 11:58:31 Test Item Value Reference Range Interpretation Comments SODIUM (BEAKER) (test code = 381) 132 meq/L 136-145 L GLUCOSE-STAT [id number] 11:58:17 Test Item Value Reference Range Interpretation Comments GLUCOSE RANDOM (BEAKER) (test code 261 mg/dL 70-110 H = 652) SODIUM NA-STAT [id number] 11:22:06 Test Item Value Reference Range Interpretation Comments SODIUM (BEAKER) (test code = 381) 129 meq/L 136-145 L HGB/HCT (H&H) - STAT [id number] 11:22:06 Test Item Value Reference Range Interpretation Comments HEMOGLOBIN (BEAKER) (test code = 9.0 GM/DL 13.0-16.8 L 410) HEMATOCRIT (BEAKER) (test code = 26.0 % 40.0-50.0 L 411) BLOOD GAS, [id number] 11:22:05 Test Item Value Reference Range Interpretation [...] (BEAKER) (test code = 1819) 70.0 POTASSIUM-STAT [id number] 11:22:00 Test Item Value Reference Range Interpretation Comments POTASSIUM (BEAKER) (test code = 6.2 meq/L 3.6-5.5 HH 379) GLUCOSE-STAT [id number] 11:21:39 Test Item Value Reference Range Interpretation Comments GLUCOSE RANDOM (BEAKER) (test code 252 mg/dL 70-110 H = 652) BLOOD GAS, [id number] 10:49:31 Test Item Value Reference Range Interpretation [...] (test code = 1819) 80.0 SODIUM NA-STAT [id number] 10:49:31 Test Item Value Reference Range Interpretation Comments SODIUM (BEAKER) (test code = 381) 129 meq/L 136-145 L HGB/HCT (H&H) - STAT [id number] 10:49:31 Test Item Value Reference Range Interpretation Comments HEMOGLOBIN (BEAKER) (test code = 9.3 GM/DL 13.0-16.8 L 410) HEMATOCRIT (BEAKER) (test code = 27.0 % 40.0-50.0 L 411) GLUCOSE-STAT [id number] 10:49:11 Test Item Value Reference Range Interpretation Comments GLUCOSE RANDOM (BEAKER) (test code 178 mg/dL 70-110 H = 652) POTASSIUM-STAT [id number] 10:49:11 Test Item Value Reference Range Interpretation Comments POTASSIUM (BEAKER) (test code = 5.4 meq/L 3.6-5.5 379) HGB/HCT (H&H) - STAT [id number] 08:09:53 Test Item Value Reference Range Interpretation Comments HEMOGLOBIN (BEAKER) (test code = 12.5 GM/DL 13.0-16.8 L 410) HEMATOCRIT (BEAKER) (test code = 37.0 % 40.0-50.0 L 411) BLOOD GAS, [id number] 08:09:52 Test Item Value Reference Range Interpretation [...] (BEAKER) (test code = 1819) 100.0 CALCIUM, [id number] 08:09:41 Test Item Value Reference Range Interpretation Comments CALCIUM IONIZED (BEAKER) (test 1.13 mmol/L 1.12-1.27 code = 698) PH, BLOOD (BEAKER) (test code = 7.49 1810) SODIUM NA-STAT [id number] 08:09:24 Test Item Value Reference Range Interpretation Comments SODIUM (BEAKER) (test code = 381) 135 meq/L 136-145 L POTASSIUM-STAT [id number] 08:09:24 Test Item Value Reference Range Interpretation Comments POTASSIUM (BEAKER) (test code = 4.7 meq/L 3.6-5.5 379) GLUCOSE-STAT [id number] 08:09:23 Test Item Value Reference Range Interpretation Comments GLUCOSE RANDOM (BEAKER) (test code 135 mg/dL 70-110 H = 652) BASIC METABOLIC [id number] 04:54:21 Test Item Value Reference Range Interpretation [...] not appl icable for dialysis patien ts Panel Machine Setter ID - [id number] 04:42:34 Test Item Value Reference Range Interpretation [...] 0-0 (BEAKER) (test code = 413) POCT-GLUCOSE [id number] 21:31:04 Test Item Value Reference Range Interpretation Comments POC-GLUCOSE METER 159 mg/dL 70-110 H : TESTED A T [facility] 6720 (BEAKER) (test code = BHAVNA GONZAL[place], 1538) 44773: Panel Machine Setter/Techni maikol ID = [id number] for Br Jose jean baptiste POCT-GLUCOSE [id number] 17:31:14 Test Item Value Reference Range Interpretation Comments POC-GLUCOSE METER 119 mg/dL 70-110 H : TESTED A T [facility] 6720 (BEAKER) (test code = [facility], 1538) 87192: Panel Machine Setter/Techni maikol ID = [id number] for OR PHEY, ELIAS POCT-GLUCOSE [id number] 12:16:24 Test Item Value Reference Range Interpretation Comments POC-GLUCOSE METER 142 mg/dL 70-110 H : TESTED A T [facility] 6720 (BEAKER) (test code = [facility], 1538) 27825: Panel Machine Setter/Techni maikol ID = [id number] for OR MARKY, ELIAS POCT-GLUCOSE [id number] 08:02:24 Test Item Value Reference Range Interpretation Comments POC-GLUCOSE METER 147 mg/dL 70-110 H : TESTED A T [facility] 6720 (BEAKER) (test code = [facility], 1538) 04827: Panel Machine Setter/Techni maikol ID = [id number] for OR PHEY, ELIAS BASIC METABOLIC [id number] 06:24:24 Test Item Value Reference Range Interpretation [...] not appl icable for dialysis patien ts Panel Machine Setter ID - [id number] 06:13:21 Test Item Value Reference Range Interpretation Comments PARTIAL THROMBOPLASTIN TIME 62.0 seconds 22.5-36.0 H (BEAKER) (test code = 760) [id number] 06:12:21 Test Item Value Reference Range Interpretation Comments PARTIAL THROMBOPLASTIN TIME 67.6 seconds 22.5-36.0 H (BEAKER) (test code = 760) POCT-GLUCOSE [id number] 22:07:45 Test Item Value Reference Range Interpretation Comments POC-GLUCOSE METER 143 mg/dL 70-110 H : TESTED A T [facility] 6720 (BEAKER) (test code = [facility] Breaker [facility], 1538) 01819: Panel Machine Setter/Techni maikol ID = [id number] for Jose Spence POCT-GLUCOSE [id number] 17:18:02 Test Item Value Reference Range Interpretation Comments POC-GLUCOSE METER 162 mg/dL 70-110 H : TESTED A T [facility] 6720 (BEAKER) (test code = [facility] Breaker [facility], 1538) 47408: Panel Machine Setter/Techni maikol ID = [id number] for ANDREI HN, ADI POCT-GLUCOSE [id number] 12:05:28 Test Item Value Reference Range Interpretation Comments POC-GLUCOSE METER 155 mg/dL 70-110 H : TESTED A T [facility] 6720 (BEAKER) (test code = [facility] Breaker [facility], 1538) 85967: Panel Machine Setter/Techni maikol ID = [id number] for ANDREI HN, ADI POCT-GLUCOSE [id number] 07:40:55 Test Item Value Reference Range Interpretation Comments POC-GLUCOSE METER 144 mg/dL 70-110 H : TESTED A T [facility] 6720 (BEAKER) (test code = BHAVNA Gutiérrez [facility], 1538) 75224: Panel Machine Setter/Techni maikol ID = [id number] for ADI CHACON BASIC METABOLIC [id number] 02:07:39 Test Item Value Reference Range Interpretation [...] not appl icable for dialysis patien ts Panel Machine Setter ID - [id number] 01:54:03 Test Item Value Reference Range Interpretation Comments PARTIAL THROMBOPLASTIN TIME 66.5 seconds 22.5-36.0 H (BEAKER) (test code = 760) POCT-GLUCOSE [id number] 20:58:51 Test Item Value Reference Range Interpretation Comments POC-GLUCOSE METER 130 mg/dL 70-110 H : TESTED A T [facility] 6720 (BEAKER) (test code = BHAVNA Gutiérrez [facility], 153) 95985: Panel Machine Setter/Techni maikol ID = [id number] for FOREST BERMAN [id number] 18:59:33 Test Item Value Reference Range Interpretation Comments PARTIAL THROMBOPLASTIN TIME 64.1 seconds 22.5-36.0 H (BEAKER) (test code = 760) POCT-GLUCOSE [id number] 17:30:38 Test Item Value Reference Range Interpretation Comments POC-GLUCOSE METER 154 mg/dL 70-110 H : TESTED A T [facility] 6720 (BEAKER) (test code = [facility], 1538) 76681: Panel Machine Setter/Techni maikol ID = [id number] for ADI CHACON POCT-GLUCOSE [id number] 17:00:05 Test Item Value Reference Range Interpretation Comments POC-GLUCOSE METER 190 mg/dL 70-110 H : TESTED A T [facility] 6720 (BEAKER) (test code = [facility], 1538) 29506: Panel Machine Setter/Techni maikol ID = [id number] for Marysol Marxa [id number] 11:30:12 Test Item Value Reference Range Interpretation Comments PARTIAL THROMBOPLASTIN TIME 103.9 seconds 22.5-36.0 H (BEAKER) (test code = 760) POCT-GLUCOSE [id number] 07:32:04 Test Item Value Reference Range Interpretation Comments POC-GLUCOSE METER 131 mg/dL 70-110 H : TESTED A T [facility] 6720 (BEAKER) (test code = [facility], 1538) 67817: Panel Machine Setter/Techni maikol ID = [id number] for Marysol Marxa [id number] 05:00:02 Test Item Value Reference Range Interpretation Comments PARTIAL THROMBOPLASTIN TIME 108.5 seconds 22.5-36.0 H (BEAKER) (test code = 760) BASIC METABOLIC [id number] 04:54:16 Test Item Value Reference Range Interpretation [...] not appl icable for dialysis patien ts Panel Machine Setter ID - [id number] 21:58:05 Test Item Value Reference Range Interpretation Comments PARTIAL THROMBOPLASTIN TIME 87.8 seconds 22.5-36.0 H (BEAKER) (test code = 760) POCT-GLUCOSE [id number] 21:33:05 Test Item Value Reference Range Interpretation Comments POC-GLUCOSE METER 140 mg/dL 70-110 H : TESTED A T [facility] 6720 (BEAKER) (test code = [facility], 153) 40402: Panel Machine Setter/Techni maikol ID = [id number] for FOREST BERMAN POCT-GLUCOSE [id number] 17:23:03 Test Item Value Reference Range Interpretation Comments POC-GLUCOSE METER 121 mg/dL 70-110 H : TESTED A T [facility] 6720 (BEAKER) (test code = [facility], 153) 08730: Panel Machine Setter/Techni maikol ID = [id number] for AUGUSTOMICKI GUZMAN BASIC METABOLIC [id number] 15:42:26 Test Item Value Reference Range Interpretation [...] not appl icable for dialysis patien ts Panel Machine Setter ID - [id number] 15:01:06 Test Item Value Reference Range Interpretation Comments PARTIAL THROMBOPLASTIN TIME 34.4 seconds 22.5-36.0 (BEAKER) (test code = 760) [id number] 13:42:30 Test Item Value Reference Range Interpretation Comments PARTIAL THROMBOPLASTIN TIME > seconds 22.5-36.0 HH (BEAKER) (test code = 760) POCT-GLUCOSE [id number] 12:12:37 Test Item Value Reference Range Interpretation Comments POC-GLUCOSE METER 158 mg/dL 70-110 H : TESTED A T [facility] 6720 ([employer]) (test code = [facility], 153) 27754: Panel Machine Setter/Techni maikol ID = [id number] for MICKI BAGLEY POCT-GLUCOSE [id number] 08:10:28 Test Item Value Reference Range Interpretation Comments POC-GLUCOSE METER 117 mg/dL 70-110 H : TESTED A T [facility] 6720 (BE[employer]ictorious) (test code = [facility] Brock [facility], 1538) 83372: Panel Machine Setter/Techni maikol ID = [id number] for MICKI BAGLEY [id number] 04:55:48 Test Item Value Reference Range Interpretation Comments PARTIAL THROMBOPLASTIN TIME 61.9 seconds 22.5-36.0 H (BEAKER) (test code = 760) POCT-GLUCOSE [id number] 21:10:34 Test Item Value Reference Range Interpretation Comments POC-GLUCOSE METER 132 mg/dL 70-110 H : TESTED A T [facility] 6720 (BEAKER) (test code = [facility], 153) 28478: Panel Machine Setter/Techni maikol ID = [id number] for FOREST BERMAN [id number] 17:36:22 Test Item Value Reference Range Interpretation Comments PARTIAL THROMBOPLASTIN TIME 66.6 seconds 22.5-36.0 H (BEAKER) (test code = 760) POCT-GLUCOSE [id number] 17:21:11 Test Item Value Reference Range Interpretation Comments POC-GLUCOSE METER 178 mg/dL 70-110 H : TESTED A T [facility] 6720 (BEAKER) (test code = [facility], 153) 45749: Panel Machine Setter/Techni maikol ID = [id number] for MICKI BAGLEY Carotid doppler [id number] 13:47:49Ejection FractionSLEH ECHO HEARTLAB MKCKESSON [facility] M[facility] Legs [id number] 13:47:29Ejection FractionSLEH ECHO HEARTLAB MKCKESSON [facility] [id number] 12:43:32 Test Item Value Reference Range Interpretation Comments POC-GLUCOSE METER 184 mg/dL 70-110 H : TESTED A T [facility] 6720 (BEAKER) (test code = [facility], 153) 15516: Panel Machine Setter/Techni maikol ID = [id number] for MICKI BAGLEY T SPOT [id number] 10:16:57 Test Item Value Reference Range Interpretation [...] = 1687) SCAN RESULT (test code = 3420154) [id number] 09:50:54 Test Item Value Reference Range Interpretation Comments PARTIAL THROMBOPLASTIN TIME 67.3 seconds 22.5-36.0 H (BEAKER) (test code = 760) POCT-GLUCOSE [id number] 07:33:54 Test Item Value Reference Range Interpretation Comments POC-GLUCOSE METER 135 mg/dL 70-110 H : TESTED A T [facility] 6720 (BEAKER) (test code = [place]AV[place], 1538) 66557: Panel Machine Setter/Techni maikol ID = [id number] for MICKI BAGLEY [id number] 02:51:47 Test Item Value Reference Range Interpretation Comments PARTIAL THROMBOPLASTIN TIME 56.8 seconds 22.5-36.0 H (BEAKER) (test code = 760) COMPREHENSIVE METABOLIC [id number] 02:33:27 Test Item Value Reference Range Interpretation [...] eGFR (test code = 1092) mL/min/1.73 values S tage Description sq m Result G1 Effie l [...] not appl icable for dialysis patien ts Panel Machine Setter ID - ADMINPOCT-GLUCOSE [id number] 21:20:07 Test Item Value Reference Range Interpretation Comments POC-GLUCOSE METER 202 mg/dL 70-110 H : TESTED A T [facility] 6720 ([facility]) (test code = BHAVNA Gutiérrez [facility], 1538) [address]: Panel Machine Setter/Techni maikol ID = [id number] for FI SKYE, FOREST [id number] 16:22:48 Test Item Value Reference Range Interpretation Comments ACTIVATED CLOTTING TIME 149 sec : 74 -137 seconds, (BEAKER) (test code = Baselsandrine ne: TESTED AT 441) [facility] 6720 [facility], 770 30: Panel Machine Setter/Techni maikol ID = [id number] for Co Aleida andersena [id number] 14:07:12 Test Item Value Reference Range Interpretation Comments ACTIVATED CLOTTING TIME 191 sec : 74 -137 seconds, (BEAKER) (test code = Baseli ne: TESTED AT 441) [facility] 6720 [facility], 770 30: Panel Machine Setter/Techni maikol ID = [id number] for HUSAM HEWITT COMPREHENSIVE METABOLIC [id number] 10:49:46 Test Item Value Reference Range Interpretation [...] appl icable for dialysis patien ts POCT-GLUCOSE [id number] 07:48:02 Test Item Value Reference Range Interpretation Comments POC-GLUCOSE METER 142 mg/dL 70-110 H : TESTED A T [facility] 6743 ([facility] (test code = [place], 1538) [address]: Panel Machine Setter/Techni maikol ID = [id number] for ADI CHACON [id number] 06:15:20 Test Item Value Reference Range Interpretation Comments PARTIAL THROMBOPLASTIN TIME 100.3 seconds 22.5-36.0 H (BEAKER) (test code = 760) [id number] 22:49:40 Test Item Value Reference Range Interpretation Comments PARTIAL THROMBOPLASTIN TIME 96.9 seconds 22.5-36.0 H (BEAKER) (test code = 760) POCT-GLUCOSE [id number] 21:17:49 Test Item Value Reference Range Interpretation Comments POC-GLUCOSE METER 190 mg/dL 70-110 H : TESTED A T [facility] 6720 (BEAKER) (test code = BH[place], 1538) 436[address]: Panel Machine Setter/Techni maikol ID = [id number] for Jose Spence Drug Test, General Toxicology, [id number] 19:18:16 Test Item Value Reference Interpretation Comments Range Acetone([facility]) 6 mg/dL H (test code = 3053) Methanol([facility]) None Detected (test code = 3054) Drug Test,Genrl see note The followin g compounds were Tox,U (test code detected: C affeine = 1374071) Dextrorphan Zaki icylic Acid For a list of c ompounds and limits of detec tion go to:http://educa tion.[email or web address].Rezzie/fa q/EMC436 ISOPROPANOL (test None Detected code = 4457889) ETHANOL (test None Detected Volatile Isaacs it of code = 4475976) Detection: 5 mg/dL This test was developed a nd its analytical performancechar acteristics have been deter mined by [employer] [place], [place]. It hasnot been asael ared or approved by the U.S. Food and DrugAdminis tration. This assay has been validated pursuantto the CLIA regulations and is used for clinicalpurpose s. SWEETIE (test code = Performing SWEETIE) Lab 15 [facility] [place] [address] [facility] [place], [place] Rylee Cazares MD, PhD Lab Abnormal Interpretation (test code = 44010-4) [facility] [id number] 17:13:10 Test Item Value Reference Range Interpretation Comments POC-GLUCOSE METER 178 mg/dL 70-110 H : TESTED A T [facility] 6720 (BEAKER) (test code = [facility], 1538) 44856: Panel Machine Setter/Techni maikol ID = [id number] for ADI CHACON [id number] 16:13:17 Test Item Value Reference Range Interpretation Comments PARTIAL THROMBOPLASTIN TIME 58.1 seconds 22.5-36.0 H (BEAKER) (test code = 760) 2D Echo W/Doppler(CW/PW/Color)2022-08-17 15:00:32Ejection FractionSLE ECHO HEARTLAB MKCKESSON [facility] [id number] 12:05:53 Test Item Value Reference Range Interpretation Comments POC-GLUCOSE METER 174 mg/dL 70-110 H : TESTED A T [facility] 6720 (BEAKER) (test code = [facility], 1538) 46268: Panel Machine Setter/Techni maikol ID = [id number] for ADI CHACON [id number] 08:24:49 Test Item Value Reference Range Interpretation Comments PARTIAL THROMBOPLASTIN TIME 69.9 seconds 22.5-36.0 H (BEAKER) (test code = 760) POCT-GLUCOSE [id number] 07:53:31 Test Item Value Reference Range Interpretation Comments POC-GLUCOSE METER 122 mg/dL 70-110 H : TESTED A T [facility] 6720 (BEAKER) (test code = [facility], 1538) 60752: Panel Machine Setter/Techni maikol ID = [id number] for ADI CHACON (CELLAVISION MANUAL DIFF)2022-08-17 07:06:56 [...] CONCENTRATION Adequate (CELLAVISION)(BEAKER) (test code = 3438) Panel Machine Setter ID - Tiesha Irvin comments: Slide comments:CBC W/PLT COUNT & AUTO [id number] 07:06:55 Test Item Value Reference Range Interpretation [...] (BEAKER) (test code = 413) COMPREHENSIVE METABOLIC [id number] 06:04:37 Test Item Value Reference Range Interpretation [...] eGFR (test code = 1092) mL/min/1.73 values S tage Description sq m Result G1 Effie l [...] not appl icable for dialysis patien ts Panel Machine Setter ID - GENI [id number] 05:52:05 Test Item Value Reference Range Interpretation Comments PARTIAL THROMBOPLASTIN TIME 110.4 seconds 22.5-36.0 H (BEAKER) (test code = 760) BLOOD [id number] 02:00:26 Test Item Value Reference Range Interpretation Comments CULTURE (BEAKER) (test No growth in 5 days code = 1095) The specimen volume collected for this blood culture was below the optimum (10 mL per bottle or 20 mL total). Use of lower volumes may adversely affect recovery and/or detection times of some organisms.BLOOD [id number] 00:01:31 Test Item Value Reference Range Interpretation Comments CULTURE (BEAKER) (test No growth in 5 days code = 1095) POCT-GLUCOSE [id number] 20:38:56 Test Item Value Reference Range Interpretation Comments POC-GLUCOSE METER 170 mg/dL 70-110 H : TESTED A T [facility] 6720 (Concepta DiagnosticsAKER) (test code = [facility], 153) 12137: Panel Machine Setter/Techni maikol ID = [id number] for Br Mendel jean baptistea POCT-GLUCOSE [id number] 17:24:15 Test Item Value Reference Range Interpretation Comments POC-GLUCOSE METER 135 mg/dL 70-110 H : TESTED A T [facility] 6720 (Concepta DiagnosticsAKER) (test code = [facility], 153) 05677: Panel Machine Setter/Techni maikol ID = [id number] for JACANTONIA MICKI POCT-GLUCOSE [id number] 12:37:08 Test Item Value Reference Range Interpretation Comments POC-GLUCOSE METER 181 mg/dL 70-110 H : TESTED A T [facility] 6720 (BEAKER) (test code = BHAVNA Gutiérrez [facility], 1538) 060[address]: Panel Machine Setter/Techni maikol ID = [id number] for Co rtez, Bronte [id number] 12:36:40 Test Item Value Reference Range Interpretation Comments PARTIAL THROMBOPLASTIN TIME 76.9 seconds 22.5-36.0 H (BEAKER) (test code = 760) POCT-GLUCOSE [id number] 07:57:49 Test Item Value Reference Range Interpretation Comments POC-GLUCOSE METER 142 mg/dL 70-110 H : TESTED A T [facility] 6720 (BEAKER) (test code = BHAVNA Gutiérrez [facility], 1538) 97153: Panel Machine Setter/Techni maikol ID = [id number] for Co rtez, Bronte (CELLAVISION MANUAL DIFF)2022-08-16 07:39:23 Test Item Value [...] CONCENTRATION Adequate (CELLAVISION)(BEAKER) (test code = 3438) Panel Machine Setter ID - Makenzie OverholtUser comments: Slide comments:CBC W/PLT COUNT & AUTO [id number] 07:39:22 Test Item Value Reference Range Interpretation [...] (BEAKER) (test code = 413) HEPATIC FUNCTION [id number] 05:15:06 Test Item Value Reference Range Interpretation [...] (test code = 55 U/L 6-55 347) Panel Machine Setter ID - GENI GBASIC METABOLIC [id number] 05:15:05 Test Item Value Reference Range Interpretation [...] not appl icable for dialysis patien ts Panel Machine Setter ID - GENI [id number] 05:15:05 Test Item Value Reference Range Interpretation Comments MAGNESIUM (BEAKER) (test code = 2.0 mg/dL 1.6-2.6 627) Panel Machine Setter ID - GENI [id number] 05:15:05 Test Item Value Reference Range Interpretation Comments PHOSPHORUS (BEAKER) (test code = 3.3 mg/dL 2.3-4.7 604) Panel Machine Setter ID - GENI [id number] 05:03:19 Test Item Value Reference Range Interpretation Comments PARTIAL THROMBOPLASTIN TIME 83.9 seconds 22.5-36.0 H (BEAKER) (test code = 760) CALCIUM, [id number] 04:44:18 Test Item Value Reference Range Interpretation Comments CALCIUM IONIZED (BEAKER) (test 1.05 mmol/L 1.12-1.27 L code = 698) PH, BLOOD (BEAKER) (test code = 7.49 1810) [id number] 21:39:14 Test Item Value Reference Range Interpretation Comments PARTIAL THROMBOPLASTIN TIME 46.8 seconds 22.5-36.0 H (BEAKER) (test code = 760) POCT-GLUCOSE [id number] 21:31:46 Test Item Value Reference Range Interpretation Comments POC-GLUCOSE METER 161 mg/dL 70-110 H : TESTED A T [facility] 6720 (BEAKER) (test code = BHAVNA Gutiérrez [facility], 1538) 49511: Panel Machine Setter/Techni maikol ID = [id number] for Br Jose jean baptiste [id number] 19:48:49 Test Item Value Reference Range Interpretation Comments PARTIAL THROMBOPLASTIN TIME 120.5 seconds 22.5-36.0 H (BEAKER) (test code = 760) POCT-GLUCOSE [id number] 17:35:39 Test Item Value Reference Range Interpretation Comments POC-GLUCOSE METER 128 mg/dL 70-110 H : TESTED A T [facility] 6720 (BEAKER) (test code = [place], 1538) 70136: Panel Machine Setter/Techni maikol ID = [id number] for Co Jeannie paulson BASIC METABOLIC [id number] 13:54:06 Test Item Value Reference Range Interpretation [...] not appl icable for dialysis patien ts Panel Machine Setter ID - [id number] 13:51:02 Test Item Value Reference Range Interpretation Comments PARTIAL THROMBOPLASTIN TIME 84.8 seconds 22.5-36.0 H (BEAKER) (test code = 760) BLOOD GAS, [id number] 13:33:19 Test Item Value Reference Range Interpretation [...] (BEAKER) (test code = 1819) 21.0 POCT-GLUCOSE [id number] 12:19:39 Test Item Value Reference Range Interpretation Comments POC-GLUCOSE METER 229 mg/dL 70-110 H : TESTED A T [facility] 6720 (BEAKER) (test code = [place]IMARJ [place], 1538) 644[address]: Panel Machine Setter/Techni maikol ID = [id number] for Co rtez, Bronte RAD, CHEST, 1 VIEW, NON [id number] 08:02:00Reason for exam:->pnaShould this be performed at the bedside?->Yes [facility] 1950 Sex: MFINAL REPORT EXAMINATION: RAD, CHEST, 1 VIEW, NON DEPT. INDICATION: 71-year-old male with pneumonia. COMPARISON: Chest radiograph dated 08/14/2022. FINDINGS/ IMPRESSION:Borderline cardiomegaly. Interval improvement of right basilar opacity with persistent mild bilateral interstitial markings. No large pleural effusion or pneumothorax. Other findings remain unchanged. Signed: Frandy Vogel Verified Date/Time: 08/15/2022 08:02:00 POCT-GLUCOSE METER 2022-08-15 07:59:24 Test Item Value Reference Range Interpretation Comments POC-GLUCOSE METER 183 mg/dL 70-110 H : [facility] ([facility] (test code = [place], 1538) 67841: Panel Machine Setter/Techni maikol ID = [id number] for Co rtez, Jeannie [id number] 05:30:58 Test Item Value Reference Range Interpretation Comments MAGNESIUM (BEAKER) (test code = 2.1 mg/dL 1.6-2.6 627) Panel Machine Setter ID - MMHEPATIC FUNCTION [id number] 05:30:58 Test Item Value Reference Range Interpretation [...] code = 71 U/L 6-55 H 347) Panel Machine Setter ID - MMBASIC METABOLIC [id number] 05:30:57 Test Item Value Reference Range Interpretation [...] 358) GLUCOSE RANDOM 187 mg/dL 70-105 H ([facility]) (test code = 652) CALCIUM ([facility]) 8.6 mg/dL 8.4-10.2 (test code = 697) EGFR ([facility]) 58 Interpretatio n of eGFR (test code [...] not appl icable for dialysis patien ts Panel Machine Setter ID - MMB-TYPE NATRIURETIC FACTOR (BNP)2022-08-15 05:02:44 Test Item Value Reference Range Interpretation Comments B-TYPE NATRIURETIC PEPTIDE (Pictorious) 674 pg/mL 0-100 H (test code = 700) Panel Machine Setter ID - MMLACTIC ACID, [id number] 04:49:56 Test Item Value Reference Range Interpretation Comments LACTATE BLOOD VENOUS 2.32 mmol/L 0.50-2.20 H Specime n slightly (2) ([facility]) (test hemolyzed code = 2872) Panel Machine Setter ID - [id number] 04:45:17 Test Item Value Reference Range Interpretation Comments PARTIAL THROMBOPLASTIN TIME 63.2 seconds 22.5-36.0 H ([facility]) (test code = 760) POCT-GLUCOSE [id number] 20:53:17 Test Item Value Reference Range Interpretation Comments POC-GLUCOSE METER 169 mg/dL 70-110 H : TESTED A T [facility] 6720 ([facility]) (test code = BHAV[place], 1538) 84235: Panel Machine Setter/Techni maikol ID = [id number] for Br Jose jean baptiste [id number] 20:31:39 Test Item Value Reference Range Interpretation Comments PARTIAL THROMBOPLASTIN TIME 68.0 seconds 22.5-36.0 H ([facility]) (test code = 760) POCT-GLUCOSE [id number] 17:26:55 Test Item Value Reference Range Interpretation Comments POC-GLUCOSE METER 205 mg/dL 70-110 H : TESTED A T [facility] 6720 (BEAKER) (test code = [facility], 1538) 42163: Panel Machine Setter/Techni maikol ID = [id number] for MICKI BAGLEY [id number] 15:08:47 Test Item Value Reference Range Interpretation Comments PARTIAL THROMBOPLASTIN TIME 76.8 seconds 22.5-36.0 H (BEAKER) (test code = 760) MRSA [id number] 14:13:20 Test Item Value Reference Range Interpretation Comments Result (test code = 6463-4) No MRSA isolated [facility] HospitalMRSA [id number] 14:13:20 Test Item Value Reference Range Interpretation Comments CULTURE (BEAKER) (test code No MRSA isolated = 1095) POCT-GLUCOSE [id number] 12:38:43 Test Item Value Reference Range Interpretation Comments POC-GLUCOSE METER 193 mg/dL 70-110 H : TESTED A T [facility] 6720 (BEAKER) (test code = [facility], 153) 53258: Panel Machine Setter/Techni maikol ID = [id number] for MICKI BAGLEY Sputum Culture + Gram [id number] 11:12:16 Test Item Value Reference Range Interpretation Comments Result (test code = 3+ Normal respiratory 6463-4) sherlyn present Gram Stain Result 1+ gram positive cocci in (test code = 1123) chains and pairs [facility]AM [id number] 11:12:16 Test Item Value Reference Range Interpretation Comments CULTURE (BEAKER) 3+ Normal respiratory (test code = 1095) shelryn present GRAM STAIN RESULT 1+ WBCs (BEAKER) (test code = 1123) GRAM STAIN RESULT 0-5 epithelial cells (BEAKER) (test code = 52435) GRAM STAIN RESULT 1+ gram positive cocci (BEAKER) (test code = in chains and pairs 27409) POCT-GLUCOSE [id number] 08:07:19 Test Item Value Reference Range Interpretation Comments POC-GLUCOSE METER 171 mg/dL 70-110 H : TESTED A T [facility] 6720 (BEAKER) (test code = [facility], 1538) 12852: Panel Machine Setter/Techni maikol ID = [id number] for MICKI BAGLEY POCT-GLUCOSE [id number] 07:19:21 Test Item Value Reference Range Interpretation Comments POC-GLUCOSE METER 213 mg/dL 70-110 H : TESTED A T [facility] 6720 (NEO) (test code = BHAVNA Gutiérrez [facility], 1538) 65822: Panel Machine Setter/Techni maikol ID = [id number] for GAEL ALVA RAD, CHEST, 1 VIEW, NON [id number] 07:19:00Reason for exam:->pnaShould this be performed at the bedside?->Yes [facility] : 1950 Sex: [...] atelectasis, similar to prior exam. Signed: Collette Chester Verified Date/Time: 08/14/2022 07:19:19 Reading Location: [address] Reading Room [id number] 06:50:50 Test Item Value Reference Range Interpretation Comments PARTIAL THROMBOPLASTIN TIME 85.7 seconds 22.5-36.0 H (BEAKER) (test code = 760) BASIC METABOLIC [id number] 06:43:55 Test Item Value Reference Range Interpretation [...] not appl icable for dialysis patien ts Panel Machine Setter ID - ADMINHEPATIC FUNCTION [id number] 06:36:29 Test Item Value Reference Range Interpretation [...] code = 81 U/L 6-55 H 347) Panel Machine Setter ID - ADMINCBC (HEMOGRAM ONLY)2022-08-14 06:15:19 Test [...] WBC 0-0 (BEAKER) (test code = 413) [id number] 00:24:06 Test Item Value Reference Range Interpretation Comments PARTIAL THROMBOPLASTIN TIME 59.4 seconds 22.5-36.0 H (BEAKER) (test code = 760) VANCOMYCIN LEVEL, [id number] 00:19:07 Test Item Value Reference Range Interpretation Comments VANCOMYCIN TROUGH (BEAKER) (test 10.5 ug/mL 10.0-20.0 code = 522) Panel Machine Setter ID - [id number] 17:30:37 Test Item Value Reference Range Interpretation Comments PARTIAL THROMBOPLASTIN TIME 47.0 seconds 22.5-36.0 H (NEO) (test code = 760) U/S, PELVIC, [id number] 17:17:00Reason for exam:->jose guadalupe [facility] : 1950 Sex: [...] Verif ied Date/Time: 08/13/2022 17:17:09 U/S, ABDOMINAL, [id number] 17:17:00Abdomen limited area? Add comment if clarification is needed.->Liver Reason for exam:->transaminitis [facility] : 1950 Sex: [...] Kenisha Monteiro MDReport Verified Date/Time: 08/13/2022 17:17:09 POCT-GLUCOSE [id number] 11:19:08 Test Item Value Reference Range Interpretation Comments POC-GLUCOSE METER 210 mg/dL 70-110 H : TESTED A T [facility] 6720 (Concepta DiagnosticsAKER) (test code = [facility], 1538) 59613: Panel Machine Setter/Techni maikol ID = [id number] for TIMOTHY LUNDBERG [id number] 09:54:29 Test Item Value Reference Range Interpretation Comments PARTIAL THROMBOPLASTIN TIME 57.7 seconds 22.5-36.0 H (BEAKER) (test code = 760) Transthoracic 2D echo w/ doppler (cw/pw/color)2022-08-13 08:44:16Ejection FractionSLEH ECHO HEARTLAB MKCKESSON [facility] HospitalPO[facility] [id number] 08:18:50 Test Item Value Reference Range Interpretation Comments POC-GLUCOSE METER 249 mg/dL 70-110 H : TESTED A T [facility] 6720 (BEAKER) (test code = [facility], 1538) 77002: Panel Machine Setter/Techni maikol ID = [id number] for TIMOTHY LUNDBERG [id number] 04:08:19 Test Item Value Reference Range Interpretation Comments MAGNESIUM (BEAKER) (test code = 2.1 mg/dL 1.6-2.6 627) Panel Machine Setter ID - ADMINHEPATIC FUNCTION [id number] 04:08:19 Test Item Value Reference Range Interpretation [...] code = 105 U/L 6-55 H 347) Panel Machine Setter ID - ADMINBASIC METABOLIC [id number] 04:08:18 Test Item Value Reference Range Interpretation [...] GFR is not appl icable for dialysis patimumtaz warren Panel Machine Setter ID - [id number] 04:01:15 Test Item Value Reference Range Interpretation [...] 0-0 (BEAKER) (test code = 413) POCT-GLUCOSE [id number] 22:10:11 Test Item Value Reference Range Interpretation Comments POC-GLUCOSE METER 177 mg/dL 70-110 H : TESTED A T [facility] 6720 (BEAKER) (test code = [place], 1538) 42861: Panel Machine Setter/Techni maikol ID = [id number] for GRADY CANDELARIA, JHONALYN [id number] 21:35:43 Test Item Value Reference Range Interpretation Comments PARTIAL THROMBOPLASTIN TIME 38.3 seconds 22.5-36.0 H (BEAKER) (test code = 760) BASIC METABOLIC [id number] 19:01:24 Test Item Value Reference Range Interpretation [...] not appl icable for dialysis patien ts Panel Machine Setter ID - BSPOCT-GLUCOSE [id number] 18:01:46 Test Item Value Reference Range Interpretation Comments POC-GLUCOSE METER 300 mg/dL 70-110 H : TESTED A T [facility] 6720 (BEAKER) (test code = BH[place], 1538) 60007: Panel Machine Setter/Techni maikol ID = [id number] for Yee Pantoja HIGH SENSITIVITY TROPONIN [id number] 17:14:28 Test Item Value Reference Range Interpretation Comments HIGH SENSITIVITY TROPONIN I (test 28355 pg/ml <=35 HH code = 0893834) Panel Machine Setter ID - ADMINThe SALES SERVICE COORDINATOR STAT High Sensitivity Troponin-I results should be used in conjunction with other diagnostic information such as ECG, clinical observations and information, and patientsymptoms to aid in the diagnosis of [place].Panel Machine Setter ID - [id number] 14:33:25 Test Item Value Reference Range Interpretation Comments PARTIAL THROMBOPLASTIN TIME 58.6 seconds 22.5-36.0 H (NEO) (test code = 760) POCT-GLUCOSE [id number] 11:32:29 Test Item Value Reference Range Interpretation Comments POC-GLUCOSE METER 194 mg/dL 70-110 H : TESTED A T [facility] 6720 (NEO) (test code = BHAVNA Gutiérrez [facility], 1538) 20363: Panel Machine Setter/Techni maikol ID = [id number] for Yee Pantoja RAD, CHEST, 1 VIEW, NON [id number] 10:55:00Reason for exam:->CHF/Pulm [facility] : 1950 Sex: [...] Verified Date/Time: 08/12/2022 10:55:02 ReadingLocation: [facility] [address] [facility] [facility] Reading Room Electronically signed by: COLLETTE CHESTER MD on 0 08/12/2022 10:55 AMHEMOGLOBIN [id number] 10:17:54 Test Item Value Reference Range Interpretation Comments HEMOGLOBIN A1C 7.0 % See_Comment H [Automated m essage] ELECTROPHORESIS (BEAKER) The system which (test code = 3811) generated this result transmitted ref erence range: <=5.6%. The reference range was not used to int erpret this result as normal/abnormal . "The A1c is measured using a NGSP-certified method. HbA1c value equal to or greater than 6.5% as thediagnosis cutoff for diabetes. An HbA1c value of 5.7- 6.4% indicates increased risk for diabetes (prediabetes)."Panel Machine Setter ID - ADMPOCT- GLUCOSE [id number] 08:14:38 Test Item Value Reference Range Interpretation Comments POC-GLUCOSE METER 249 mg/dL 70-110 H : TESTED A T [facility] 6720 (BEAKER) (test code = BHAVNA Gutiérrez [facility], 1538) 24596: Panel Machine Setter/Techni maikol ID = [id number] for Yee Pantoja HIGH SENSITIVITY TROPONIN [id number] 06:02:40 Test Item Value Reference Range Interpretation Comments HIGH SENSITIVITY TROPONIN I (test > pg/ml <=35 HH code = 1283172) Panel Machine Setter ID - ADMINThe SALES SERVICE COORDINATOR STAT High Sensitivity Troponin-I results should be used in conjunction with other diagnostic information such as ECG, clinical observations and information, and patientsymptoms to aid in the diagnosis of [place].Panel Machine Setter ID - ADMINBASIC METABOLIC [id number] 05:00:15 Test Item Value Reference Range Interpretation [...] not appl icable for dialysis patien ts Panel Machine Setter ID - ADMINHEPATIC FUNCTION [id number] 05:00:15 Test Item Value Reference Range Interpretation [...] Specimen slightly (test code = 347) hemolyzed Panel Machine Setter ID - [id number] 05:00:14 Test Item Value Reference Range Interpretation Comments MAGNESIUM (BEAKER) 2.2 mg/dL 1.6-2.6 Specimen slightly (test code = 627) hemolyzed Panel Machine Setter ID - [id number] 04:54:01 Test Item Value Reference Range Interpretation [...] (BEAKER) (test code = 413) Strep pneumoniae [id number] 01:08:51 Test Item Value Reference Range Interpretation Comments Strep pneumoniae Presumptive negative Presumptive Antigen (test code = [place] [address]-4) pneumonia - see pneumococcal comment pneumonia - [...] test. Lab Interpretation Normal (test code = 08741-2) [facility] HospitalTREP PNEUMONIAE [id number] 01:08:51 Test Item Value Reference Range Interpretation Comments STREP PNEUMONIAE Presumptive negative Presumptive negative ANTIGEN (NEO) for pneumococcal for pneumococcal (test code = 1615) pneumonia - see pneumonia - see comment commen Presumptive negative for pneumococcal pneumonia, suggesting no current or recent pneumococcal infection. Infection due to S. pneumoniae cannot be ruled out since the antigen present in the sample may be below the detection limit of the test. Legionella antigen, [id number] 01:07:14 Test Item Value Reference Range Interpretation Comments Legionella Urine Negative - see Negative Negative for L. Antigen (test code = comment pneumop gilson 62604-5) serogroup 1 antigen, sugges ting no recent or current infecti on with this serogroup. Legionellosis cannot be ruled out since other serogroups and species may cau se disease. Lab Interpretation Normal (test code = 49742-0) [facility] HospitalLEGIONELLA ANTIGEN, [id number] 01:07:14 Test Item Value Reference Range Interpretation [...] may cau se disease. HIGH SENSITIVITY TROPONIN [id number] 00:35:38 Test Item Value Reference Range Interpretation Comments HIGH SENSITIVITY TROPONIN I (test > pg/ml <=35 code = 5077460) Panel Machine Setter ID - ADMINThe SALES SERVICE COORDINATOR STAT High Sensitivity Troponin-I results should be used in conjunction with other diagnostic information such as ECG, clinical observations and information, and patientsymptoms to aid in the diagnosis of [place].Panel Machine Setter ID - ADMINLACTIC ACID, [id number] 23:56:19 Test Item Value Reference Range Interpretation Comments LACTATE BLOOD VENOUS 2.05 mmol/L 0.50-2.20 Specime n slightly (2) (NEO) (test hemolyzed code = 2872) Panel Machine Setter ID - [id number] 23:36:18 Test Item Value Reference Range Interpretation Comments PARTIAL THROMBOPLASTIN TIME 37.7 seconds 22.5-36.0 H (NEO) (test code = 760) HEPATITIS PANEL, [id number] 23:34:58 Test Item Value Reference Range Interpretation Comments HEPATITIS A IGM ANTIBODY (BEAKER) Nonreactive Nonreactive (test code = 498) HEPATITIS B CORE IGM ANTIBODY Nonreactive Nonreactive (BEAKER) (test code = 645) HEPATITIS C ANTIBODY (BEAKER) Nonreactive Nonreactive (test code = 367) HEPATITIS B SURFACE ANTIGEN (2) Nonreactive Nonreactive (BEAKER) (test code = 2585) Panel Machine Setter ID - ADMINBLOOD GAS, [id number] 23:24:10 Test Item Value Reference Range Interpretation [...] (BEAKER) (test code = 1819) 32.0 LIPID [id number] 23:12:56 Test Item Value Reference Range Interpretation [...] Borderline 130-159 High 160-189 Very High >=190 Panel Machine Setter ID - [id number] 23:12:56 Test Item Value Reference Range Interpretation Comments MAGNESIUM (BEAKER) (test code = 2.5 mg/dL 1.6-2.6 627) Panel Machine Setter ID - ADMINCT, BRAIN, WITHOUT [id number] 22:07:00Reason for Exam (Free Text) - Addiitonal information for Radiologist->evaluate for hemorrhage seen on OSH imaging [facility] : 1950 Sex: [...] Angélica Palomino MDReport Verified Date/Time: 08/11/2022 22:07:19 [id number] 22:04:33 Test Item Value Reference Range Interpretation Comments PROCALCITONIN (NEO) (test 120.17 ng/mL <0.05 HH code = 3036) SEPSIS RISK (ng/mL)Low: 0.05-0.50Intermediate: 0.51-2.00High: >=2.01TSH/FREE T4 IF [id number] 21:59:30 Test Item Value Reference Range Interpretation Comments THYROID STIMULATING HORMONE 1.090 uIU/mL 0.350-4.940 (NEO) (test code = 772) Panel Machine Setter ID - ADMINCT, CHEST, WITHOUT [id number] 21:59:00Unlisted Reason for Exam - Click Yes and Enter Reason Below->No [facility] 1950 Sex: [...] component of interstitial edema. Signed: Morales Pérez MDReport Verified Date/Time: 08/11/2022 21:59:12 HEPATIC FUNCTION PANEL [...] code = 122 U/L 6-55 H 347) Panel Machine Setter ID - ADMINLACTIC ACID, [id number] 21:32:22 Test Item Value Reference Range Interpretation Comments LACTATE BLOOD VENOUS 2.26 mmol/L 0.50-2.20 H Specime n slightly (2) (BEAKER) (test hemolyzed code = 2872) Panel Machine Setter ID - [id number] 21:26:29 Test Item Value Reference Range Interpretation Comments PARTIAL THROMBOPLASTIN TIME 41.5 seconds 22.5-36.0 H (BEAKER) (test code = 760) HIGH SENSITIVITY TROPONIN [id number] 20:50:31 Test Item Value Reference Range Interpretation Comments HIGH SENSITIVITY TROPONIN I (test > pg/ml <=35 HH code = 8983367) Panel Machine Setter ID - DBThe SALES SERVICE COORDINATOR STAT High Sensitivity Troponin-I results should be used in conjunctionwith other diagnostic information such as ECG, clinical observations and information, and patient symptoms to aid in the diagnosis of [place].Panel Machine Setter ID - DB(CELLAVISION MANUAL DIFF)2022-08-11 20:38:47 Test [...] CONCENTRATION Adequate (CELLAVISION)(BEAKER) (test code = 3438) Panel Machine Setter ID - Luci Mckinney comments: Slide comments:CBC W/PLT COUNT & AUTO [id number] 20:38:46 Test Item Value Reference Range Interpretation [...] pg/mL 0-100 H (test code = 700) Panel Machine Setter ID - DBBASIC METABOLIC [id number] 20:19:11 Test Item Value Reference Range Interpretation [...] 8.4-10.2 (test code = 697) EGFR (BEAKER) 31 Interpretatio n of eGFR (test code [...] not appl icable for dialysis patien ts Panel Machine Setter ID - DB Notes Date/Time Note Provider Source 2022-08-24 15:32:46-00:00 [facility] OCTAVIO HUIZAR FACILITY: [facility] Billing #: [id number] Room: [place] [address] MR #: [id number] : 1950 DATE OF PROCEDURE: 08/24/2022 SURGEON: Brady Juarez MD PREOPERATIVE DIAGNOSES: Severe coronary artery d isease, severe aortic stenosis, trileaflet valve, atrial fibril lation and tmlny-hk-igmrxdg congestive heart failure. POSTOPERATIVE DIAGNOSES: Severe coronary artery disease, severe aortic stenosis, trileaflet valve, atrial fibrillation and ylkje-rg-ipzxajy congestive heart failure. PROCEDURES PERFORMED: Aortic valve [...] appendage li gation with an AtriClip external. DEVELOPMENT PROFESSIONAL: Vern Kumari MD. ANESTHETIC: General endotracheal. HISTORY: [...] not indicated for cardiac surgical procedure s. ADILSON/STEPHIE /[id number] Electronically signed by: BRADY JUAREZ at 13:05:59.000
--- NOTE | 2022-11-27 13:35 | EDPHYS ---
Physician Documentation [facility] Name: Smooth Ordaz Age: 72 yrs Sex: Male : 1950 Arrival Date: 11/27/2022 Time: 13:16 Bed Waiting Private MD: ED Physician Abdelrahman Webster HPI: 11/27 14:16 This 72 yrs old Male presents to ER via Ambulatory with complaints of Bump on right kb elbow. 14:16 The patient or guardian complains of swelling. The complaints affect the right elbow. kb Context: The problem was sustained at home, resulted from unknown cause. Onset: The symptoms/episode began/occurred 3 week(s) ago. Treatment prior to arrival includes: no previous treatment. Modifying factors: The symptoms are alleviated by nothing. the symptoms are aggravated by nothing. Associated signs and symptoms: Pertinent positives: swelling. Severity of symptoms: At their worst the symptoms were moderate, in the emergency department the symptoms are unchanged. The patient has not experienced similar symptoms in the past. The patient has not recently seen a physician. Historical: - Allergies: 13:24 No Known Allergies; os - PMHx: 13:24 Hypertensive disorder; os - PSHx: 13:24 None; os - Immunization history:: Adult Immunizations up to date. - Social history:: Smoking status: Patient denies any tobacco usage or history of. ROS: 14:08 Constitutional: Negative for fever, chills, and weight loss. kb 14:15 MS/extremity: Positive for swelling, of the right elbow. kb 14:15 All other systems are negative. Exam: 14:15 Constitutional: This is a well developed, well nourished patient who is awake, alert, kb and in no acute distress. Head/Face: Normocephalic, atraumatic. ENT: Moist Mucous membranes Cardiovascular: Regular rate and rhythm with a normal S1 and S2. No gallops, murmurs, or rubs. No pulse deficits. Respiratory: Respirations even and unlabored. No increased work of breathing. Talking in full sentences Skin: Warm, dry with normal turgor. Normal color. Neuro: Awake and alert, GCS 15, oriented to person, place, time, and situation. Moves all extremities. Normal gait. 14:15 Musculoskeletal/extremity: Extremities: grossly normal except: noted in the right elbow: swelling, ROM: intact in all extremities, Circulation is intact in all extremities. Sensation intact. Vital Signs: 13:24 BP 151 / 88; Pulse 91; Resp 17; Temp 99; Pulse Ox 100% ; os MDM: 13:23 Patient medically screened. kb 14:15 Data reviewed: vital signs, nurses notes. kb 14:17 Differential diagnosis: dislocation, closed fracture, contusion, bursitis. Counseling: kb I had a detailed discussion with the patient and/or guardian regarding: the historical points, exam findings, and any diagnostic results supporting the discharge/admit diagnosis, the need for outpatient follow up, a family practitioner, a orthopedic surgeon, to return to the emergency department if symptoms worsen or persist or if there are any questions or concerns that arise at home. Administered Medications: No medications were administered Disposition: 14:25 Co-signature as Attending Physician, Abdelrahman Webster MD I reviewed the patient's care rn provided by the Advanced Practice Provider and agree with the diagnosis and treatment plan. Disposition Summary: 11/27/22 13:34 Discharge Ordered Location: Home kb Condition: Stable kb Diagnosis - Olecranon bursitis, right elbow kb Followup: kb - With: Emergency Department - When: As needed - Reason: Worsening of condition Followup: kb - With: Private Physician - When: 2 - 3 days - Reason: Recheck today's complaints, Continuance of care, Re-evaluation by your physician Discharge Instructions: - Discharge Summary Sheet os - Elbow Bursitis, Dffg-sq-[id number] os Forms: - Medication Reconciliation Form kb - Thank You Letter kb - Antibiotic Education kb - Prescription Opioid Use kb - [email or web address] kb Signatures: Vandana Asif FNP-C FNP-Abdelrahman Cueto MD MD rn Sotiri, Orest, RN RN os
--- NOTE | 2022-11-27 13:35 | ER ---
Nurse's Notes [facility] Name: Smooth Ordaz Age: 72 yrs Sex: Male : 1950 Arrival Date: 11/27/2022 Time: 13:16 Bed Waiting Private MD: Diagnosis: Olecranon bursitis, right elbow Presentation: 11/27 13:24 Chief complaint: Patient states: R elbow pain/swelling. Ebola Screen: Patient denies os travel to an Ebola-affected area in the 21 days before illness onset. Initial Sepsis Screen: Does the patient meet any 2 criteria? No. Patient's initial sepsis screen is negative. Does the patient have a suspected source of infection? No. Patient's initial sepsis screen is negative. Risk Assessment: Do you want to hurt yourself or someone else? Patient reports no desire to harm self or others. Onset of symptoms was November 05, 2022. 13:24 Method Of Arrival: Ambulatory os 13:24 Acuity: ANAYELI 4 os 13:24 Coronavirus screen: Client denies travel out of the [place] in the last 14 days. At this os time, the client does not indicate any symptoms associated with coronavirus-19. Triage Assessment: 13:34 General: Appears in no apparent distress. Behavior is calm, cooperative, appropriate os for age. Pain: Complains of pain in R elbow Quality of pain is described as aching. Musculoskeletal: Reports pain in R elbow. Injury Description: Bruise. Historical: - Allergies: 13:24 No Known Allergies; os - PMHx: 13:24 Hypertensive disorder; os - PSHx: 13:24 None; os - Immunization history:: Adult Immunizations up to date. - Social history:: Smoking status: Patient denies any tobacco usage or history of. Vital Signs: 13:24 BP 151 / 88; Pulse 91; Resp 17; Temp 99; Pulse Ox 100% ; os ED Course: 13:20 Patient arrived in ED. im 13:21 Vandana Asif FNP-C is PHCP. kb 13:21 Abdelrahman Webster MD is Attending Physician. kb 13:25 Triage completed. os 13:25 Arm band placed on Patient placed in an exam room, on a stretcher. os 13:31 Brittney Holt RN is Primary Nurse. eh3 Administered Medications: No medications were administered Outcome: 13:34 Discharge ordered by MD. brice 13:39 Patient left the ED. os Signatures: Vandana Asif FNP-C QUILLER HAND-Brittney Madrid RN RN 3 Lizzie George, RN RN os Danielle Samayoa Corrections: (The following items were deleted from the chart) 13:34 13:24 BP 151 / 88; Pulse 91bpm; Resp 17bpm; Pulse Ox 100%; os os
[2022-11-27 13:47] VITALS: BP 151/88; TEMP 99; O2SAT 100
== END 2022-11-27 13:39 | disposition home or self-care (01) ==
LOC: ER 13:16
DX: M70.21 Olecranon bursitis, right elbow (principal)
CPT/HCPCS: 99281

== ENCOUNTER 2023-04-11 10:21 | Emergency (ER) | payer OTHER ==
--- OUTSIDE RECORDS SUMMARY | 2023-04-11 10:30 | XMS REPORT | Continuity of Care Document ---
:1950 Author Organization [facility] t Address [address] [facility]. [address] [place] [address] Care Team Providers Name Role Phone Asked, No Pcp Primary Care Physician Unavailable MORALES PÉREZ Attending Clinician Unavailable DONITA RUDD Attending Clinician Unavailable Alfredo Olson MD Attending Clinician Isha Nunez MD Attending Clinician JOAQUIN ROLLINS Attending Clinician Unavailable MILY FULTON Attending Clinician Unavailable JERRELL VILLAFUERTE Attending Clinician Unavailable Brady Cortes MD Attending Clinician Aubrey Moore MD Attending Clinician Basilio Ryan MD Attending Clinician Unavailable Alfredo Olson MD Attending Clinician SHARON CLARK Admitting Clinician Unavailable ISHA NUNEZ Admitting Clinician Unavailable Payers Payer Name Policy Type Policy Number Effective Date Expiration Date S kristin MEDICARE A B [id number] 2013 00:00:00 GENERIC MEDICARE [id number] 2019 SUPPLEMENT 00:00:00 Problems Condition Condition Condition Status Onset Resolution Last Treating Co mments Source Name Details Category Date Date Treatment Clinician Date s/p ACB x2 s/p ACB x2 Disease Recurre [facility] ([facility], (SVG-LAD, nce 3-21 Luke s [facility] SVG-ramus 00:00: Medi alex int), AVR, int), AVR, 00 Ce nter Maze, Maze, Atriclip Atriclip 08/24/22 08/24/22 (Dr. Cortes) (Dr. Cortes) Acute Acute Disease Recurre [facility] failure failure Medical superimpos superimpos Ce nter ed on ed on stage 1 stage 1 chronic chronic kidney kidney disease, disease, unspecifie unspecifie d acute d acute renal renal failure failure type type Acute Acute Disease Active [facility] post-opera post-opera Nathalia kes tive pain tive pain [facility] Acute Acute Disease Active [facility] [...] Start Date Stop Date Source Natural mother [facility] Natural father [facility] Social History Social Habit Start Date Stop Date Quantity Comments Source Sexual orientation Method ist [facility] Gender identity [facility] Alcohol intake 2022-10-14 2022-10-14 Lifetime [facility] 00:00:00 00:00:00 non-drinker Hospital (finding) History of Social 2022-10-14 2022-10-[address] function 00:00:00 00:00:00 Hospital Tobacco use and 2022-09-28 2022-09-28 Smokeless [facility] exposure 00:00:00 00:00:00 tobacco non-user Hospital Exposure to 2022-08-01 2022-08-[address] [facility] SARS-CoV-2 (event) 00[facility]00[facility]00 [facility] Ass[facility] At [birth year] [facility] Smoking Status Start Date Stop Date Source Never smoked tobacco [facility] Medications Ordered Filled Start Stop [...] 09:51: mouth Hospita ORAL) 58 daily. l furosemide 2022-0 Yes [id number] 20mg Q24H Take 1 [facility] (LASIX) 20 5-24 tablet (20 st mg tablet 00:00: mg total) Hos jessica 00 by mouth l daily as needed (leg swelling). losartan 2022-0 Yes [id number] 100mg QD Take 1 M ethodi (COZAAR) 5-[address] 100 MG 00:00: (100 mg Hospita tablet 00 total) by l mouth daily. metoprolol 2022-0 Yes [id number] 50mg QD Take 1 [facility] succinate 5-24 tablet (50 st XL 00:00: mg total) Hospita (TOPROL-XL) 00 by mouth l 50 mg 24 hr daily. tablet furosemide 2022-0 Yes [id number] 20mg Q24H Take 1 [facility] (LASIX) 20 5-24 tablet (20 st mg tablet 00:00: mg total) Hos jessica 00 by mouth l daily as needed (leg swelling). losartan 2022-0 Yes [id number] 100mg QD Take 1 M ethodi (COZAAR) 5-[address] 100 MG 00:00: (100 mg Hospita tablet 00 total) by l mouth daily. metoprolol 2022-0 Yes [id number] 50mg QD Take 1 [facility] succinate 5-24 tablet (50 st XL 00:00: mg total) Hospita (TOPROL-XL) 00 by mouth l 50 mg 24 hr daily. tablet furosemide 2022-0 Yes [id number] 20mg Q24H Take 1 [facility] (LASIX) 20 5-24 tablet (20 st mg tablet 00:00: mg total) Hos jessica 00 by mouth l daily as needed (leg swelling). losartan 2022-0 Yes [id number] 100mg QD Take 1 M ethodi (COZAAR) 5-[address] 100 MG 00:00: (100 mg Hospita tablet 00 total) by l mouth daily. metoprolol 2022-0 Yes [id number] 50mg QD Take 1 [facility] succinate 5-24 tablet (50 st XL 00:00: mg total) Hospita (TOPROL-XL) 00 by mouth l 50 mg 24 hr daily. tablet furosemide 2022-0 Yes [id number] 20mg Q24H Take 1 [facility] (LASIX) 20 5-24 tablet (20 st mg tablet 00:00: mg total) Hos jessica 00 by mouth l daily as needed (leg swelling). losartan 2022-0 Yes [id number] 100mg QD Take 1 M ethodi (COZAAR) 5-[address] 100 MG 00:00: (100 mg Hospita tablet 00 total) by l mouth daily. metoprolol 2022-0 Yes [id number] 50mg QD Take 1 [facility] succinate 5-24 tablet (50 st XL 00:00: mg total) Hospita (TOPROL-XL) 00 by mouth l 50 mg 24 hr daily. tablet atorvastati 2022-0 Yes [id number] 40mg QD Take 1 Methodi n (LIPITOR) 5-08 tablet (40 st 40 mg 00:00: mg total) Hospita tablet 00 by mouth l nightly. atorvastati 2022-0 Yes [id number] 40mg QD Take 1 Methodi n (LIPITOR) 5-08 tablet (40 st 40 mg 00:00: mg total) Hospita tablet 00 by mouth l nightly. atorvastati 2022-0 Yes [id number] 40mg QD Take 1 Methodi n (LIPITOR) 5-08 tablet (40 st 40 mg 00:00: mg total) Hospita tablet 00 by mouth l nightly. atorvastati 2022-0 Yes [id number] 40mg QD Take 1 Methodi n (LIPITOR) 5-08 tablet (40 st 40 mg 00:00: mg total) Hospita tablet 00 by mouth l nightly. losartan 2022-0 2023- No [id number] 50mg QD Take 1 M ethodi (COZAAR) 50 5-08 05-24 tablet (50 s t MG tablet 00:00: 00:00 mg total) Ho spita 00 :00 by mouth l daily. metoprolol 2022- No [id number] 25mg QD Take 1 Methodi succinate 5-08 05-24 tablet (25 st XL 00:00: 00:00 mg total) Hospita (TOPROL-XL) 00 :00 by mouth l 25 mg 24 hr daily. tablet losartan 2022- No [id number] 50mg QD Take 1 M ethodi (COZAAR) 50 5-08 05-24 tablet (50 s t MG tablet 00:00: 00:00 mg total) Ho spita 00 :00 by mouth l daily. metoprolol No [id number] 25mg QD Take 1 [facility] succinate 5-08 05-24 tablet (25 st XL 00:00: 00:00 mg total) Hospita (TOPROL-XL) 00 :00 by mouth l 25 mg 24 hr daily. tablet losartan No [id number] 50mg QD Take 1 M ethodi (COZAAR) 50 5-08 05-24 tablet (50 s t MG tablet 00:00: 00:00 mg total) Ho spita 00 :00 by mouth l daily. metoprolol 2022- No [id number] 25mg QD Take 1 Methodi succinate 5-08 05-24 tablet (25 st XL 00:00: 00:00 mg total) Hospita (TOPROL-XL) 00 :00 by mouth l 25 mg 24 hr daily. tablet losartan No [id number] 50mg QD Take 1 M ethodi (COZAAR) 50 5-08 05-24 tablet (50 s t MG tablet 00:00: 00:00 mg total) Ho spita 00 :00 by mouth l daily. metoprolol 2022- No [id number] 25mg QD Take 1 [facility] succinate 5-08 [...] TO l powder AFFECTED AREA TWICE DAILY metoprolol 2022- No TAKE 1 Meth allyson [...] AM AND AT l 3 PM potassium 2022-2022- No 10meq Q.5D Take 1 Meth allyson chloride -20 05-08 tablet (10 st (KLOR-CON) 00:00: 00:00 mEq total) Hospita 10 MEQ CR 00 :00 by mouth 2 l tablet (two) times a day. atorvastati 2022- No 40mg QD Take 1 Met hodi n (LIPITOR) - 05-08 tablet (40 s t 40 mg 00:00: 00:00 mg total) Hospit a tablet 00 :00 by mouth l nightly. nystatin 2022- No APPLY [facility] (MYCOSTATIN -10 10-[address] ) 100,000 00:00: 00:00 TOPICALLY Ho spita unit/gram 00 :00 TO l powder AFFECTED AREA TWICE DAILY FeroSuL 325 2022- No 325mg QD Take 1 Me thodi mg (65 mg -10 10-[address] iron) 00:00: 00:00 (325 mg Hospita tablet 00 :00 total) by l mouth daily. metoprolol 2022- No TAKE 1 Meth allyson succinate -20 05-[address] XL 00:00: 00:00 MOUTH ONCE Hospit a (TOPROL-XL) 00 :00 DAILY AT l 25 mg 24 hr 6AM tablet losartan 2022- No 25mg QD Take 1 Method i (COZAAR) 25 -20 05-08 tablet (25 s t MG tablet [...] l nightly. nystatin No APPLY [facility] (MYCOSTATIN 4-20 05-[address] ) 100,000 00:00: 00:00 TOPICALLY Ho spita unit/gram 00 :00 TO l powder AFFECTED AREA TWICE DAILY FeroSuL 325 No 325mg QD Take 1 Me thodi [...] AM AND AT l 3 PM potassium 2022-2022- No 10meq Q.5D Take 1 Meth allyson chloride 09-10 tablet (10 st (KLOR-CON) 00:00: 00:00 mEq total) Hospita 10 MEQ CR 00 :00 by mouth 2 l tablet (two) times a day. atorvastati 2022-2022- No 40mg QD Take 1 Met hodi [...] Take 1 Me thodi mg (65 mg 09-[address] iron) 00:00: 00:00 (325 mg Hospita tablet 00 :00 total) by l mouth daily. polyethylen Yes 17g QD Take [address] e glycol 12 by mouth [facility] (GLYCOLAX) 00:00: in the Medic al 17 gram 00 morning. Center packet aspirin 2023- No 81mg QD Take 1 [facility] (ECOTRIN) 09-02- tablet (81 st 81 MG 00:00: 04:59 mg total) Hospit a enteric 00 :00 by mouth l coated daily. tablet aspirin 2022-0 2023- No 81mg QD Take 1 [facility] (ECOTRIN) 09-02-12 tablet (81 st 81 MG 00:00: 04:59 mg total) Hospit a enteric 00 :00 by mouth l coated daily. tablet aspirin 2022-0 2023- No 81mg QD Take 1 [facility] (ECOTRIN) 09-02-12 tablet (81 st 81 MG 00:00: 04:59 mg total) Hospit a enteric 00 :00 by mouth l coated daily. tablet aspirin 2022-0 2023- No 81mg QD Take 1 [facility] (ECOTRIN) 09-02-12 tablet (81 st 81 MG 00:00: 04:59 mg total) Hospit a enteric 00 :00 by mouth l coated daily. tablet aspirin 81 2023- No 81mg QD Take [address] [facility] MG EC 09-02 tablet (81 [facility] tablet 00:00: 23:59 mg total) Medic al 00 :00 by mouth Center in the morning. metoprolol 2023- No 25mg QD Take [address] [facility] [address] succinate 09-02 tablet (25 Dorys es (TOPROL-XL) 00:00: 23:59 mg total) Medical 25 MG 24 hr 00 :00 by mouth Cent er tablet in the morning. amiodarone 2023- No 200mg QD Take [address] [facility] (PACERONE) 09-02 tablet [facility] 200 MG 00:00: 23:59 (200 mg Medical tablet 00 :00 total) by Center mouth in the morning. losartan 2023- No 25mg QD Take [address] [facility] (COZAAR) 25 09-02 tablet (25 L ukes MG tablet 00:00: 23:59 mg total) Me dical 00 :00 by mouth Center in the morning. amIODarone 2022-2022- No 200mg Take 1 Met hodi (PACERONE) 09-02- tablet st 200 MG 00:00: 00:00 (200 mg Hospita tablet 00 :00 total) by l mouth. amIODarone 2022-0 2022- No 200mg Take 1 Met hodi (PACERONE) 09-02- tablet st 200 MG 00:00: 00:00 (200 mg Hospita tablet 00 :00 total) by l mouth. amIODarone 2022-0 2022- No 200mg Take 1 Met hodi (PACERONE) 09-02-[address] 200 MG 00:00: 00:00 (200 mg Hospita tablet 00 :00 total) by l mouth. amIODarone 2022-0 2022- No 200mg Take 1 Met hodi (PACERONE) 09-02-[address] 200 MG 00:00: 00:00 (200 mg Hospita tablet 00 :00 total) by l mouth. heparin 2022- Yes 5000U Inject 1 [facility] [...] Center tablet in the morning. atorvastati 2023- No 40mg QD Take [address] n (LIPITOR) 4-11 04-10 tablet (40 L ukes 40 MG 00:00: 23:59 mg total) Medica l tablet 00 :00 by mouth Center nightly. senna-docus 2023- No 1{tbl} Q.5D Take [address] ate -11 04-10 tablet by [facility] (SENOKOT S) 00:00: 23:59 mouth in M edical 8.6-50 mg 00 :00 the Center per tablet morning and 1 tablet before bedtime. insulin 2022-2023- No 0U Inject 0-[address] lispro 4-11 04-10 Units [facility] (HumaLOG) 00:00: 23:59 subcutaneo M edical 100 unit/mL 00 :00 usly 3 Center injection (three) times daily before meals. insulin 2022-2023- No 0U Inject 0-[address] lispro 4-11 04-10 Units [facility] (HumaLOG) 00:00: 23:59 subcutaneo M edical 100 unit/mL 00 :00 usly every Ce nter injection night as needed (High blood sugar). potassium 2022-2023- No 20meq Q.5D Take [address] chloride SA -11 04-10 tablet (20 L ukes (K-DUR,KLOR 00:00: 23:59 mEq total) Medical -CON-M) 20 00 :00 by mouth Cente r MEQ tablet in the morning and 1 tablet (20 mEq total) before bedtime. furosemide 2023-0 2024- No 40mg Take [address] [facility] (LASIX) 40 09-01-10 tablet (40 Nathalia kes MG tablet 00:00: 23:59 mg total) Me dical 00 :00 by mouth Center in the morning and 1 tablet (40 mg total) in the evening. lidocaine 2022- No 1{patch Q24H Place [address] [...] l 8.6-50 mg per tablet traMADoL 2022- No 50mg Take [address] (ULTRAM) 50 09-01 tablet (50 L ukes mg tablet 00:00: 23:59 mg total) Me dical 00 :00 by mouth Center every 6 (six) hours as needed for up to 10 days. Max Daily Amount: 200 mg oxyCODONE 2022- No 5mg Take 1 [facility] t (ROXICODONE [...] pressure Diastolic blood 2022-10-14 14:42:00 107 mm[facility]Hg[facility] pressure Heart rate 2022-10-14 14:42:00 97 /min [facility] Respiratory rate 2022-10-14 14:42:00 12 /min [facility] Body height 2022-10-14 14:42:[address] [facility] Body weight 2022-10-14 14:42:[address] [facility] BMI 2022-10-14 14:42:00 28.48 kg/m2 [facility] Oxygen saturation in 2022-10-14 14:42:00 98 /min [facility] Arterial blood by Pulse oximetry Systolic blood 2022-09-02 08:20:00 121 mm[Hg] [facility] Diastolic blood 2022-09-02 08:20:00 58 mm[Hg] [facility] Heart rate 2022-09-02 08:20:00 81 /min [facility] Respiratory rate 2022-09-02 07:48:00 18 /min [facility] Oxygen saturation in 2022-09-02 07:48:00 96 /min [facility] Arterial blood by Medical Ce nter Pulse oximetry Body temperature 2022-09-02 07:00:00 35.94 [place] [facility] Body weight 2022-09-02 06:21:00 98.476 kg [facility] BMI 2022-09-02 06:21:00 29.44 kg/m2 [facility] Body height 2022-08-11 22:00:00 182.9 cm [facility] Procedures Procedure Date / Time Performing Clinician Source Performed TRANSTHORACIC 2022-10-20 14:45:37 Alfredo Olson spital ECHOCARDIOGRAM COMPLETE W CONT STRAIN 3D IF NEEDED POCT-GLUCOSE METER 2022-09-02 08:04:00 Jerrell Villafuerte [facility] HEPATIC FUNCTION PANEL 2022-09-02 05:16:00 Cher Rebollar [facility] CBC (HEMOGRAM ONLY) 2022-09-02 05:16:00 Kely-[facility] BASIC METABOLIC PANEL 2022-09-02 05:16:00 [facility] 2022-09-02 05:16:00 Kely-[facility] POCT-GLUCOSE METER 2022-09-01 21:09:00 Villafuerte [facility] POCT-GLUCOSE METER 2022-09-01 17:08:00 Villafuerte, [facility] POCT-GLUCOSE METER 2022-09-01 12:36:00 Villafuerte, [facility] POCT-GLUCOSE METER 2022-09-01 07:11:00 [facility] HEPATIC FUNCTION PANEL 2022-09-01 05:17:00 Cher Rebollar [facility] CBC (HEMOGRAM ONLY) 2022-09-01 05:17:00 [facility] BASIC METABOLIC PANEL 2022-09-01 05:17:00 [facility] 2022-09-01 05:17:00 [facility] POCT-GLUCOSE METER 2022-08-31 17:20:00 Geri [facility] POCT-GLUCOSE METER 2022-08-31 12:31:00 Geri [facility] POCT-GLUCOSE METER 2022-08-31 07:12:00 Santiago Chavez [facility] CBC (HEMOGRAM ONLY) 2022-08-31 05:00:00 [facility] HEPATIC FUNCTION PANEL 2022-08-31 04:59:[address] [facility] BASIC METABOLIC PANEL 2022-08-31 04:59:00 [facility] MAGNESIUM 2022-08-31 04:59:00 [facility] POCT-GLUCOSE METER 2022-08-30 17:13:00 Santiago Chavez [facility] POCT-GLUCOSE METER 2022-08-30 12:12:00 Santiago Chavez [facility] POCT-GLUCOSE METER 2022-08-30 08:06:00 Kathy Santiago [facility] HEPATIC FUNCTION PANEL 2022-08-30 06:06:[address] [facility] BASIC METABOLIC PANEL 2022-08-30 06:06:00 Octavio [facility] CBC (HEMOGRAM ONLY) 2022-08-30 06:06:00 [facility]ely-[facility] MAGNESIUM 2022-08-30 06:06:00 Kely-[facility] POCT-GLUCOSE METER 2022-08-29 19:47:00 Jorommel Santiago [facility] POCT-GLUCOSE METER 2022-08-29 17:17:00 Jorommel Santiago [facility] POCT-GLUCOSE METER 2022-08-29 11:59:00 Kathy Santiago [facility] POCT-GLUCOSE METER 2022-08-29 07:13:00 Lawson Vernon [facility] HEPATIC FUNCTION PANEL 2022-08-29 06:07:[address] [facility] BASIC METABOLIC PANEL 2022-08-29 06:07:00 [facility] CBC (HEMOGRAM ONLY) 2022-08-29 06:07:00 [facility] 2022-08-29 06:07:00 [facility] POCT-GLUCOSE METER 2022-08-28 20:19:00 Lawson Vernon [facility] POCT-GLUCOSE METER 2022-08-28 17:22:00 Lawson Vernon [facility] B-TYPE NATRIURETIC FACTOR 2022-08-28 13:06:00 Alfredo Olson CH I [facility] (BNP) [facility] LACTIC ACID, VENOUS 2022-08-28 13:06:00 Alfredo Olson [facility] 2D ECHO W/ DOPPLER 2022-08-28 11:13:29 Enedelia Olson [facility] (CW/PW/COLOR) [facility] POCT-GLUCOSE METER 2022-08-28 11:00:00 Lawson Vernon [facility] POCT-GLUCOSE METER 2022-08-28 07:06:00 Villafuerte [facility] HEPATIC FUNCTION PANEL 2022-08-28 06:42:[address] [facility] BASIC METABOLIC PANEL 2022-08-28 06:42:00 Octavio [facility] MAGNESIUM 2022-08-28 06:42:00 [facility] ONLY[facility] 2022-08-28 04:55:00 [facility] POCT-GLUCOSE METER 2022-08-27 20:59:00 Villafuerte [facility] POCT-GLUCOSE METER 2022-08-27 17:37:00 Villafuerte [facility] BASIC METABOLIC PANEL 2022-08-27 16:45:00 Columba [facility] XR CHEST 1 VIEW PORTABLE / 2022-08-27 14:47:00 Brady Cortes [facility] POCT-GLUCOSE METER 2022-08-27 12:38:00 Villafuerte [facility] POCT-GLUCOSE METER 2022-08-27 07:39:00 Villafuerte, [facility] BASIC METABOLIC PANEL 2022-08-27 02:36:00 Serenibisi [facility] CALCIUM, IONIZED 2022-08-27 02:36:00 [facility] 2022-08-27 02:36:00 Cher Rebollar [facility] LACTIC ACID, ARTERIAL 2022-08-27 02:36:00 [facility] 2022-08-27 02:36[facility]00 [facility] PH[facility]US 2022-08-27 02:36:00 [facility] W/PLT COUNT & AUTO 2022-08-27 02:36[facility] CBC W/PLT COUNT & AUTO 2022-08-27 02:36:00 [facility] DIFFERENTIAL [facility] XR CHEST 1 VIEW PORTABLE / 2022-08-27 02:32:00 Dante Fenton [facility] FIBRINOGEN 2022-08-27 02:30:[address] [facility] PT/APTT 2022-08-27 02:30:[address] [facility] POCT-GLUCOSE METER 2022-08-27 00:05:00 Jerrell Villafuerte [facility] PREPARE LEUKO-REDUCED RBC 2022 23:55:00 Evy Perdomo [facility] POCT-GLUCOSE METER 2022 18:52:00 Jerrell Villafuerte [facility] BASIC METABOLIC PANEL 2022 17:10:[address] [facility] CALCIUM, IONIZED 2022 17:10:00 [facility] CBC (HEMOGRAM ONLY) 2022 17:10:00 [facility] MAGNESIUM 2022 17:10:00 [facility] PHOS[facility]US 2022 17:10:[address] [facility] POCT-GLUCOSE METER 2022 11:59:00 Arjun Villafuertean [facility] OXYGEN SATURATION, 2022 08:40:00 Sermillicentbisi [facility] LACTIC ACID, ARTERIAL 2022 08:40:00 [facility] OXYGEN SATURATION, 2022 06:01:00 Columba [facility] POCT-GLUCOSE METER 2022 06:00:00 Villafuerte Jerrell [facility] BASIC METABOLIC PANEL 2022 02:33:00 [facility] BLOOD GAS, ARTERIAL 2022 02:33:00 [facility]22 02:33:00 [facility] HE[facility] FUN[facility] PANEL 2022 02:33:00 OctavioCher [facility] FIBRINOGEN 2022 02:33:00 [facility] LACTIC ACID, ARTERIAL 2022 02:33:00 Serangelo [facility] MAGNESIUM 2022 02:33:[address] [facility] OXYGEN SATURATION, 2022 02:33:00 Columba [facility] PHOSPHORUS 2022 02:33:00 [facility] 02:33:[address] [facility] CBC W/PLT COUNT & AUTO 2022 02:33:00 Serangelo [facility] DIFFERENTIAL [facility] CBC W/PLT COUNT & AUTO 2022 02:33:00 Columba [facility] DIFFERENTIAL [facility] (CELLAVISION MANUAL DIFF) 2022 02:33:00 SerangeloRashawnph [facility] XR CHEST 1 VIEW PORTABLE / 2022 01:27:00 Dante Fenton [facility] PREPARE RBC 2022-08-25 23:54:00 Brady Cortes [facility] OXYGEN SATURATION, 2022-08-25 23:34:[address] [facility] CALCIUM, IONIZED 2022-08-25 23:34:00 [facility] POCT-GLUCOSE METER 2022-08-25 23:32:00 Jerrell Villafuerte [facility] RRL CRITICAL LABS 2022-08-25 20:28:00 [facility] (ABG,NA,K,H&H,GLUCOSE) [facility] enter CALCIUM, IONIZED 2022-08-25 20:28:00 [facility] BLOOD GAS, ARTERIAL 2022-08-25 20:28:00 [facility] SODIUM NA-STAT LAB 2022-08-25 20:28:00 [facility] POTASSIUM-STAT LAB 2022-08-25 20:28:00 [facility] GLUCOSE-STAT LAB 2022-08-25 20:28:00 [facility] HGB/HCT (H&H) - STAT LAB 2022-08-25 20:28:[address] [facility] POCT-GLUCOSE METER 2022-08-25 18:17:00 Jerrell Villafuerte [facility] TRANSFUSE LEUKO-REDUCED 2022-08-25 17:31:00 Evy Perdomo [facility] RED BLOOD CELLS [facility] POCT-GLUCOSE METER 2022-08-25 15:53:00 Villafuerte, Jerrell [facility] BASIC METABOLIC PANEL 2022-08-25 15:47:00 Serangelo [facility] CALCIUM, IONIZED 2022-08-25 15:47:00 [facility] (HEMOGRAM ONLY) 2022-08-25 15:47:[address] [facility] MAGNESIUM 2022-08-25 15:47:00 Serenio [facility] PHOSPHORUS 2022-08-25 15:47:00 [facility] LACTIC ACID, ARTERIAL 2022-08-25 15:47:00 Dante Fenton [facility] LACTIC ACID, ARTERIAL 2022-08-25 12:18:00 Dante Fenton [facility] POCT-GLUCOSE METER 2022-08-25 12:13:00 Geri [facility] POCT-GLUCOSE METER 2022-08-25 08:47:00 [facility]iEstelle [facility] LACTIC ACID, ARTERIAL 2022-08-25 08:34:00 [facility] OXYGEN SATURATION, 2022-08-25 08:34:00 [facility] BLOOD GAS, ARTERIAL 2022-08-25 08:34:[address] [facility] BASIC METABOLIC PANEL 2022-08-25 08:34:[address] [facility] CALCIUM, IONIZED 2022-08-25 08:34:00 [facility] POCT-GLUCOSE METER 2022-08-25 07:27:00 [facility] POCT-GLUCOSE METER 2022-08-25 06:27:00 [facility]Estelle [facility] POCT-GLUCOSE METER 2022-08-25 03:19:00 [facility]Estelle [facility] BASIC METABOLIC PANEL 2022-08-25 02:12:00 [facility] BLOOD GAS, ARTERIAL 2022-08-25 02:12:[facility], [facility]ON[facility]ED 2022-08-25 02:12:00 [facility] HE[facility] PANEL 2022-08-25 02:12:00 OctavioCher [facility] FIBRINOGEN 2022-08-25 02:12:00 [facility] LACTIC ACID, ARTERIAL 2022-08-25 02:12:00 [facility] MAGNESIUM 2022-08-25 02:12:[address] [facility] OXYGEN SATURATION, 2022-08-25 02:12:00 Serangelo [facility] MEASURED [facility] PHOSPHORUS 2022-08-25 02:12:00 [facility]TT 2022-08-25 02:12:00 [facility] CBC W/PLT COUNT & AUTO 2022-08-25 02:12:00 [facility] DIFFERENTIAL [facility] CBC W/PLT COUNT & AUTO 2022-08-25 02:12:00 [facility] POCT-GLUCOSE METER 2022-08-25 01:16:00 Jerrell Villafuerte [facility] XR CHEST 1 VIEW PORTABLE / 2022-08-25 01:06:00 Dante Fenton [facility] POCT-GLUCOSE METER 2022-08-25 00:09:00 Jerrell Villafuerte [facility] BLOOD GAS, ARTERIAL 2022-08-24 23:08:00 [facility] POCT-[facility]SE [facility]ER 2022-08-24 23:04:00 Villafuerte, [facility] POCT-GLUCOSE METER 2022-08-24 21:53:00 Geri [facility] RRL CRITICAL LABS 2022-08-24 21:07:00 [facility] es (ABG,NA,K,H&H,GLUCOSE) [facility] enter LACTIC ACID, ARTERIAL 2022-08-24 21:07:00 [facility]LO[facility] 2022-08-24 21:07:00 [facility] SODIUM NA-STAT LAB 2022-08-24 21:07:00 [facility] 2022-08-24 21:07:00 [facility] 2022-08-24 21:07:00 [facility] - [facility] LAB 2022-08-24 21:07:00 [facility] POCT-GLUCOSE METER 2022-08-24 19:48:00 Villafuerte [facility] RRL CRITICAL LABS 2022-08-24 19:36:00 [facility] es (ABG,NA,K,H&H,GLUCOSE) [facility] enter LACTIC ACID, ARTERIAL 2022-08-24 19:36:00 [facility] CALCIUM, IONIZED 2022-08-24 19:36:00 [facility] BLOOD GAS, ARTERIAL 2022-08-24 19:36:00 [facility] SODIUM NA-STAT LAB 2022-08-24 19:36:00 [facility] POTASSIUM-STAT LAB 2022-08-24 19:36:00 [facility] GLUCOSE-[facility] LAB 2022-08-24 19:36:00 Serenio, [facility] HGB/HCT (H&H) - STAT LAB 2022-08-24 19:36:00 Serenio [facility] RRL CRITICAL LABS 2022-08-24 17:13:00 Cortes, [facility] (ABG,NA,K,H&H,GLUCOSE) Medical C enter BLOOD GAS, ARTERIAL 2022-08-24 17:13:00 Cortes, [facility] SODIUM NA-STAT LAB 2022-08-24 17:13:00 Cortes, [facility] POTASSIUM-STAT LAB 2022-08-24 17:13:00 Cortes, [facility] GLUCOSE-STAT LAB 2022-08-24 17:13:00 Cortes, [facility] HGB/HCT (H&H) - STAT LAB 2022-08-24 17:13:00 Cortes, [facility] LACTIC ACID, ARTERIAL 2022-08-24 17:13:00 Dante Fenton [facility] XR CHEST 1 VIEW PORTABLE / 2022-08-24 15:45:00 Dante Fenton [facility] MISCELLANEOUS LAB ORDER 2022-08-24 14:39:00 Dante Fenton [facility] BLOOD GAS, ARTERIAL 2022-08-24 14:39:00 Dante Fenton [facility] CALCIUM, IONIZED 2022-08-24 14:39:00 Dante Fenton [facility] CBC W/PLT COUNT & AUTO 2022-08-24 14:39:[address] [facility] COMPREHENSIVE METABOLIC 2022-08-24 14:39:00 Dante Fenton [facility] FIBRINOGEN 2022-08-24 14:39:00 Dante Fenton [facility] LACTIC ACID, ARTERIAL 2022-08-24 14:39:00 Dante Fenton [facility] MAGNESIUM 2022-08-24 14:39:00 Dante Fenton [facility] OXYGEN SATURATION, 2022-08-24 14:39:00 Dante Fenton [facility] PHOSPHORUS 2022-08-24 14:39:00 Dante Fenton [facility] PROTHROMBIN TIME/INR 2022-08-24 14:39:00 Dante Fenton [facility] PT/APTT 2022-08-24 14:39:00 Dante Fenton [facility] SODIUM NA-STAT LAB 2022-08-24 14:39:00 Dante Fenton [facility] POTASSIUM-STAT LAB 2022-08-24 14:39:00 Dante Fenton [facility] GLUCOSE-STAT LAB 2022-08-24 14:39:00 Dante Fenton [facility] HGB/HCT (H&H) - STAT LAB 2022-08-24 14:39:00 Eliceo Dante [facility] CBC W/PLT COUNT & AUTO 2022-08-24 14:39:00 Eliceo Dante [facility] RRL CRITICAL LABS 2022-08-24 13:39:01 Teresa [facility] (ABG,NA,K,H&H,GLUCOSE) Medical C enter CALCIUM, IONIZED 2022-08-24 13:39:01 [facility] BLOOD GAS, ARTERIAL 2022-08-24 13:39:01 Teresa [facility] SODIUM NA-STAT LAB 2022-08-24 13:39:01 Teresa [facility] POTASSIUM-STAT LAB 2022-08-24 13:39:01 Teresa [facility] GLUCOSE-STAT LAB 2022-08-24 13:39:01 [facility] HGB/HCT (H&H) - STAT LAB 2022-08-24 13:39:01 [facility] TRANSFUSE LEUKO-REDUCED 2022-08-24 13:14:00 Teresa [facility] RED BLOOD CELLS [facility] PROTHROMBIN TIME/INR 2022-08-24 13:09:17 Teresa [facility] APTT 2022-08-24 13:09:17 Teresa [facility] FIBRINOGEN 2022-08-24 13:09:17 Teresa [facility] PLATELET COUNT 2022-08-24 13:09:17 Teresa [facility] POCT-ACT 2022-08-24 13:04:00 Villafuerte Jerrell [facility] RRL CRITICAL LABS 2022-08-24 12:41:26 Teresa [facility] (ABG,NA,K,H&H,GLUCOSE) Medical C enter CALCIUM, IONIZED 2022-08-24 12:41:26 Teresa [facility] BLOOD GAS, ARTERIAL 2022-08-24 12:41:26 Teresa [facility] SODIUM NA-STAT LAB 2022-08-24 12:41:26 Teresa [facility] POTASSIUM-STAT LAB 2022-08-24 12:41:26 Teresa [facility] GLUCOSE-STAT LAB 2022-08-24 12:41:26 [facility] - STAT LAB 2022-08-24 12:41:26 [facility] POCT-ACT 2022-08-24 12:21:00 Jerrell Villafuerte [facility] RRL CRITICAL LABS 2022-08-24 12:19:46 Brady Cortes [facility] (ABG,NA,K,H&H,GLUCOSE) Medical C enter BLOOD GAS, ARTERIAL 2022-08-24 12:19:46 Brady Cortes [facility] SODIUM NA-STAT LAB 2022-08-24 12:19:46 Brady Cortes [facility] POTASSIUM-STAT LAB 2022-08-24 12:19:46 Cortes, Brady Gutiérrez [facility] GLUCOSE-STAT LAB 2022-08-24 12:19:46 Cortes, Brady Gutiérrez [facility] HGB/HCT (H&H) - STAT LAB 2022-08-24 12:19:46 Sophia Brady Gutiérrez [facility] POCT-ACT 2022-08-24 11:42:00 Villafuerte Jerrell [facility] RRL CRITICAL LABS 2022-08-24 11:40:21 Cortes, Brady Gutiérrez [facility] es (ABG,NA,K,H&H,GLUCOSE) Medical C enter BLOOD GAS, ARTERIAL 2022-08-24 11:40:21 Cortes, Brady Gutiérrez [facility] SODIUM NA-STAT LAB 2022-08-24 11:40:21 Cortes, Brady Gutiérrez [facility] POTASSIUM-STAT LAB 2022-08-24 11:40:21 Cortes, Brady Gutiérrez [facility] GLUCOSE-STAT LAB 2022-08-24 11:40:21 Cortes, Brady Gutiérrez [facility] HGB/HCT (H&H) - STAT LAB 2022-08-24 11:40:21 Cortes Brady Gutiérrez [facility] POCT-ACT 2022-08-24 11:11:00 Villafuerte Jerrell [facility] RRL CRITICAL LABS 2022-08-24 11:09:42 Cortes, [facility] (ABG,NA,K,H&H,GLUCOSE) Medical C enter BLOOD GAS, ARTERIAL 2022-08-24 11:09:42 Cortes, Brady Gutiérrez [facility] SODIUM NA-STAT LAB 2022-08-24 11:09:42 Cortes, Brady Gutiérrez [facility] POTASSIUM-STAT LAB 2022-08-24 11:09:42 Cortes, Brady Gutiérrez [facility] GLUCOSE-STAT LAB 2022-08-24 11:09:42 Cortes, Brady Gutiérrez [facility] HGB/HCT (H&H) - STAT LAB 2022-08-24 11:09:42 Cortes, Brady [facility] RRL CRITICAL LABS 2022-08-24 10:41:01 SophiaBrady [facility] (ABG,NA,K,H&H,GLUCOSE) Medical C enter BLOOD GAS, ARTERIAL 2022-08-24 10:41:01 Sophia Brady Gutiérrez [facility] SODIUM NA-STAT LAB 2022-08-24 10:41:01 Cortes, Brady Gutiérrez [facility] POTASSIUM-STAT LAB 2022-08-24 10:41:01 CortesBrady [facility] GLUCOSE-STAT LAB 2022-08-24 10:41:01 Sophia Brady [facility] HGB/HCT (H&H) - STAT LAB 2022-08-24 10:41:01 Sophia Brady [facility] POCT-ACT 2022-08-24 10:41:00 Villafuerte, [facility] POCT-ACT 2022-08-24 10:14:00 Villafuerte, [facility] POCT-ACT 2022-08-24 08:07:00 Villafuerte, [facility] RRL CRITICAL LABS 2022-08-24 07:53:07 Teresa [facility] (ABG,NA,K,H&H,GLUCOSE) Medical C enter CALCIUM, IONIZED 2022-08-24 07:53:07 Teresa [facility] BLOOD GAS, ARTERIAL 2022-08-24 07:53:07 Teresa [facility] SODIUM NA-STAT LAB 2022-08-24 07:53:07 Teresa [facility] POTASSIUM-STAT LAB 2022-08-24 07:53:07 Teresa [facility] GLUCOSE-STAT LAB 2022-08-24 07:53:07 [facility] HGB/HCT (H&H) - STAT LAB 2022-08-24 07:53:07 [facility] ANESTHESIA ANN-MARIE 2022-08-24 07:41:08 Juan J Quevedo [facility] CABG, USING INTERNAL 2022-08-24 07:12:00 Cortes, Brady Gutiérrez [facility] THORACIC ARTERY AND Medical Cent er SAPHENOUS VEIN GRAFT MAZE PROCEDURE, USING 2022-08-24 07:12:00 Cortes, Brady Gutiérrez [facility] CRYOABLATION [facility] LIGATION, ATRIAL APPENDAGE 2022-08-24 07:12:00 Cortes, Brady JOAQUIN [facility] REPLACEMENT, AORTIC VALVE 2022-08-24 07:12:00 Cortes, Brady Gutiérrez [facility] ECHOCARDIOGRAM, 2022-08-24 07:12:00 Cortes, Brady Gutiérrez [facility] TRANSESOPHAGEAL [facility] SURGICAL PROCUREMENT, 2022-08-24 07:12:00 Cortes, Brady Gutiérrez [facility] VEIN, ENDOSCOPIC [facility] BASIC METABOLIC PANEL 2022-08-24 03:52:00 Angela Winslow [facility] CBC (HEMOGRAM ONLY) 2022-08-24 03:52:00 VillafuerteJerrell [facility] APTT 2022-08-24 03:52:00 Rupert Dean [facility] TYPE AND SCREEN, AUTOMATED 2022-08-24 03:52:00 Jerrell Villafuerte [facility] POCT-GLUCOSE METER 2022-08-23 21:19:00 VillafuerteJerrell Nemesio [facility] POCT-GLUCOSE METER 2022-08-23 17:01:00 VillafuerteJerrell Nemesio [facility] POCT-GLUCOSE METER 2022-08-23 12:04:00 Villafuerte, Jerrell Nemesio [facility] POCT-GLUCOSE METER 2022-08-23 07:43:00 Villafuerte, [facility] 2022-08-23 05:08:00 Villafuerte, [facility] BASIC METABOLIC PANEL 2022-08-23 05:08:00 Angela Winslow [facility] POCT-GLUCOSE METER 2022-08-22 21:56:00 Villafuerte, Jerrell Nemesio [facility] POCT-GLUCOSE METER 2022-08-22 17:06:00 VillafuerteJerrellUC [facility] POCT-GLUCOSE METER 2022-08-22 11:53:00 Villafuerte Jerrell [facility] POCT-GLUCOSE METER 2022-08-22 07:29:00 Villafuerte Jerrell [facility] BASIC METABOLIC PANEL 2022-08-22 01:05:00 Nayla [facility] APTT 2022-08-22 01:05:00 Rupert Dean [facility] POCT-GLUCOSE METER 2022-08-21 20:47:00 [facility] APTT 2022-08-21 18:32:00 Rupert Dean [facility] POCT-GLUCOSE METER 2022-08-21 17:19:00 GeriEstelle [facility] POCT-GLUCOSE METER 2022-08-21 11:28:00 Geri Jerrell [facility] APTT 2022-08-21 10:57:00 Rupert Dean [facility] POCT-GLUCOSE METER 2022-08-21 07:19:00 Geri [facility] BASIC METABOLIC PANEL 2022-08-21 03:56:00 [facility] AP[facility] 2022-08-21 03:56:00 Rupert Dean [facility] APTT 2022-08-20 21:37:00 Rupert Dean [facility] POCT-GLUCOSE METER 2022-08-20 21:21:00 Geri Jerrell Nemesio [facility] POCT-GLUCOSE METER 2022-08-20 17:11:00 Geri [facility] BASIC METABOLIC PANEL 2022-08-20 15:10:00 [facility]la [facility] AP[facility] 2022-08-20 14:44:00 Rupert Dean [facility] APTT 2022-08-20 12:36:00 Rupert Dean [facility] POCT-GLUCOSE METER 2022-08-20 12:01:00 Geri Jerrell [facility] POCT-GLUCOSE METER 2022-08-20 07:51:00 Geri [facility] APTT 2022-08-20 04:11:00 Rupert Dean [facility] POCT-GLUCOSE METER 2022-08-19 20:59:00 Geri [facility] POCT-GLUCOSE METER 2022-08-19 17:10:00 GeriEstelle [facility] APTT 2022-08-19 16:47:00 Rupert Dean [facility] POCT-GLUCOSE METER 2022-08-19 12:28:00 Geri [facility] APTT 2022-08-19 09:25:00 Rupert Dean [facility] POCT-GLUCOSE METER 2022-08-19 07:23:00 Geri Jerrell [facility] COMPREHENSIVE METABOLIC 2022-08-19 01:51:00 Rupert Dean [facility] APTT 2022-08-19 01:51:00 Rupert Dean [facility] CAROTID DOPPLER BILATERAL 2022-08-18 21:11:00 Rupert Dean [facility] VEIN MAPPING LEGS 2022-08-18 21:11:[address] [facility] POCT-GLUCOSE METER 2022-08-18 21:08:00 Geri [facility] POCT-ACT 2022-08-18 16:08:00 [facility] 2022-08-18 13:52:00 [facility] POCT-GLUCOSE METER 2022-08-18 07:36:00 GeriEstelle [facility] ABORH, MANUAL 2022-08-18 05:50:00 Amara Limon [facility] COMPREHENSIVE METABOLIC 2022-08-18 05:34:00 Jermaine [facility] APTT 2022-08-18 05:34:00 Geri [facility] TYPE AND SCREEN, AUTOMATED 2022-08-18 05:34:00 Jermaine Rupert [facility] APTT 2022-08-17 22:22:00 Jermaine [facility] POCT-GLUCOSE METER 2022-08-17 21:06:00 Geri [facility] POCT-GLUCOSE METER 2022-08-17 17:00:00 GeriEstelle [facility] APTT 2022-08-17 15:33:00 Jermaine [facility] 2D ECHO W/ DOPPLER 2022-08-17 12:49:13 Alfredo Olson [facility] (CW/PW/COLOR) [facility] POCT-GLUCOSE METER 2022-08-17 11:54:00 GeriEstelle [facility] POCT-GLUCOSE METER 2022-08-17 07:42:00 Geri [facility] APTT 2022-08-17 07:38:00 Jermaine [facility] COMPREHENSIVE METABOLIC 2022-08-17 04:49:00 Jermaine [facility] CBC W/PLT COUNT & AUTO 2022-08-17 04:49:[address] [facility] APTT 2022-08-17 04:49:00 Pavelsan [facility] CBC W/PLT COUNT & AUTO 2022-08-17 04:49:[address] [facility] (CELLAVISION MANUAL DIFF) 2022-08-17 04:49:00 Cristobal Remy [facility] POCT-GLUCOSE METER 2022-08-16 20:27:00 Sandrita [facility] POCT-GLUCOSE METER 2022-08-16 17:12:00 [facility]SE METER 2022-08-16 12:25:00 [facility] APTT 2022-08-16 12:13:00 Rupert Dean [facility] POCT-GLUCOSE METER 2022-08-16 07:46:00 [facility] 2022-08-16 04:20:00 Waldo Figueroa [facility] BASIC METABOLIC PANEL 2022-08-16 04:20:00 Sandrita [facility] CALCIUM, IONIZED 2022-08-16 04:20:00 [facility] PHOSPHORUS 2022-08-16 04:20:00 Sandrita [facility] CBC W/PLT COUNT & AUTO 2022-08-16 04:20:00 Cristobal Remy [facility] MAGNESIUM 2022-08-16 04:20:00 Sandrita [facility] APTT 2022-08-16 04:20:00 Rupert Dean [facility] CBC W/PLT COUNT & AUTO 2022-08-16 04:20:[address] [facility] (CELLAVISION MANUAL DIFF) 2022-08-16 04:20:00 [facility] POCT-GLUCOSE METER 2022-08-15 21:20:00 Sandrita [facility] APTT 2022-08-15 21:08:00 Rupert Dean [facility] APTT 2022-08-15 19:28:00 Rupert Dean [facility] POCT-GLUCOSE METER 2022-08-15 17:24:00 Sandrita [facility] BLOOD GAS, VENOUS 2022-08-15 13:17:00 Nayla Angela [facility] BASIC METABOLIC PANEL 2022-08-15 13:17:00 Nayla [facility] APTT 2022-08-15 13:17:00 Rupert Dean [facility] POCT-GLUCOSE METER 2022-08-15 12:08:00 Cristobal Remy [facility] POCT-GLUCOSE METER 2022-08-15 07:43:00 Jerrell Villafuerte [facility] XR CHEST 1 VIEW PORTABLE / 2022-08-15 04:53:00 [facility] MAGNESIUM 2022-08-15 04:22:00 Alfredo Olson [facility] LACTIC ACID, VENOUS 2022-08-15 04:22:00 Alfredo Olson [facility] HEPATIC FUNCTION PANEL 2022-08-15 04:22:00 [facility] B-TYPE NATRIURETIC FACTOR 2022-08-15 04:22:00 Alfredo Olson [facility] (BNP) [facility] BASIC METABOLIC PANEL 2022-08-15 04:22:00 Alfredo Olson [facility] APTT 2022-08-15 04:22:00 Rupert Dean [facility] POCT-GLUCOSE METER 2022-08-14 20:41:00 Jerrell Villafuerte [facility] APTT 2022-08-14 20:04:00 Rupert Dean [facility] POCT-GLUCOSE METER 2022-08-14 17:15:00 Jerrell Villafuerte [facility] APTT 2022-08-14 14:07:00 Rupert Dean [facility] POCT-GLUCOSE METER 2022-08-14 12:22:00 Geri Jerrell [facility] POCT-GLUCOSE METER 2022-08-14 07:56:00 Geri Jerrell [facility] BASIC METABOLIC PANEL 2022-08-14 06:03:00 Waldo Figueroa [facility] CBC (HEMOGRAM ONLY) 2022-08-14 06:03:00 Carolina Sdjamchari [facility] HEPATIC FUNCTION PANEL 2022-08-14 06:03:00 Toby [facility] APTT 2022-08-14 06:03:00 Rupert Dean [facility] XR CHEST 1 VIEW PORTABLE / 2022-08-14 05:26:00 Waldo Figueroa [facility] VANCOMYCIN LEVEL, TROUGH 2022-08-13 23:45:00 Carolina Sdwilla I [facility] APTT 2022-08-13 23:45:00 Rupert Dean [facility] POCT-GLUCOSE METER 2022-08-13 21:09:00 Jerrell Villafuerte [facility] APTT 2022-08-13 16:59:00 Rupert Dean [facility] US ABDOMEN COMPLETE 2022-08-13 13:03:[address] [facility] US PELVIS LIMITED 2022-08-13 12:53:00 Sharon Clark [facility] POCT-GLUCOSE METER 2022-08-13 11:07:00 Mayra [facility] APTT 2022-08-13 09:29:00 Rupert Dean [facility] POCT-GLUCOSE METER 2022-08-13 08:07:00 Isha Nunez [facility] BASIC METABOLIC PANEL 2022-08-13 03:29:00 [facility] CBC (HEMOGRAM ONLY) 2022-08-13 03:29:00 Carolina [facility] HEPATIC FUNCTION PANEL 2022-08-13 03:29:[address] [facility] T SPOT TB 2022-08-13 03:29:00 Gaviota Salinas [facility] APTT 2022-08-13 03:29:00 Rupert Dean [facility] MAGNESIUM 2022-08-13 03:29:00 Andrea Groves [facility] POCT-GLUCOSE METER 2022-08-12 21:19:00 [facility] 2022-08-12 21:17:00 Rupert Dean [facility] POCT-GLUCOSE METER 2022-08-12 17:50:00 [facility] BASIC METABOLIC PANEL 2022-08-12 17:44:00 Brad [facility] 2D ECHO W/ DOPPLER 2022-08-12 16:57:41 Brad Gaviota [facility] (CW/PW/COLOR) [facility] HIGH SENSITIVITY TROPONIN 2022-08-12 15:40:00 Gaviota Salinas [facility] APTT 2022-08-12 14:06:00 Rupert Dean [facility] POCT-GLUCOSE METER 2022-08-12 11:21:00 [facility] XR CHEST 1 VIEW PORTABLE / 2022-08-12 08:50:[address] [facility] POCT-GLUCOSE METER 2022-08-12 08:03:00 Mayra [facility] SPUTUM CULTURE + GRAM 2022-08-12 05:55:00 Andrea Groves [facility] STAIN [facility] DRUG TEST, GENERAL 2022-08-12 05:32:00 Javier Yanez [facility] BASIC METABOLIC PANEL 2022-08-12 04:15:[address] [facility] CBC (HEMOGRAM ONLY) 2022-08-12 04:15:[address] [facility] HEPATIC FUNCTION PANEL 2022-08-12 04:15[facility]ITIV[facility] TROPONIN 2022-08-12 04:15:00 Preston Yanezjuan [facility] APTT 2022-08-12 04:15:00 Rupert Dean [facility] MAGNESIUM 2022-08-12 04:15:00 Andrea Groves [facility] MRSA SCREEN 2022-08-11 23:32:00 Hotze, [facility] STREP PNEUMONIAE ANTIGEN 2022-08-11 23:26:00 Hotze, [facility] LEGIONELLA ANTIGEN, URINE 2022-08-11 23:25:00 Hotze, [facility] HIGH SENSITIVITY TROPONIN 2022-08-11 23:15:00 Javier Yanez [facility] LACTIC ACID, VENOUS 2022-08-11 23:15:00 Javier Yanez [facility] APTT 2022-08-11 23:15:00 [facility] BLOOD GAS, VENOUS 2022-08-11 23:15:00 [facility] HEM[facility]C 2022-08-11 23:15:00 Andrea Groves [facility] BLOOD CULTURE 2022-08-11 23:14:00 Andrea Groves [facility] ECG 12-LEAD 2022-08-11 23:01:57 [facility] 12-LEAD 2022-08-11 23:01:57 Unknown, Hl7 Doctor [facility] CT CHEST WITHOUT IV 2022-08-11 21:34:00 Alfredo Olson [facility] BRAIN WITHOUT IV 2022-08-11 21:34:00 [facility] LACT[facility] ACID, VENOUS 2022-08-11 21:03:00 [facility] PROCALCITONIN 2022-08-11 21:03:00 Javier Yanez [facility] APTT 2022-08-11 21:03:00 [facility] TSH/FREE T4 IF INDICATED 2022-08-11 21:03:00 Javier Yanez [facility] HEPATITIS PANEL, ACUTE 2022-08-11 21:03:[address] [facility] CBC W/PLT COUNT & AUTO 2022-08-11 19:51:00 Nestor [facility] BASIC METABOLIC PANEL 2022-08-11 19:51:00 Nestor, [facility] HIGH SENSITIVITY TROPONIN 2022-08-11 19:51:00 Nestor, [facility] B-TYPE NATRIURETIC FACTOR 2022-08-11 19:51:00 [facility] HEPATIC FUNCTION PANEL 2022-08-11 19:51:00 Javier Yanez [facility] MAGNESIUM 2022-08-11 19:51:00 [facility] LIPID PANEL 2022-08-11 19:51:00 Germain [facility] CBC W/PLT COUNT & AUTO 2022-08-11 19:51:00 Nestor [facility] (CELLAVISION MANUAL DIFF) 2022-08-11 19:51:00 [facility] VASCULAR DIAGRAM -SCAN 2022-08-11 00:00:00 ProviderRadha [facility] Plan of Care Planned Activity Planned Date Details Comments Source Future Scheduled 2023-08-25 Tobacco Cessation [facility] Test 00:00:00 [facility] Scre[facility] (12+) [code = Tobacco Cessation Counseling and Screening (12+)] Future Scheduled 2023-03-19 Screening for [facility] Test 16:55:47 malignant neoplasm of colon (procedure) [code = 790884428] Future Scheduled 2023-03-19 Screening for [facility] Test 16:55:47 malignant neoplasm of colon (procedure) [code = 115953056] Future Scheduled 2023-03-19 Screening for [facility] Test 16:55:47 malignant neoplasm of colon (procedure) [code = 893398977] Future Scheduled 2023-03-19 COVID-19 VACCINE (#1) [facility] Test 16:55:47 [code = COVID-19 VACCINE (#1)] Future Scheduled 2023-03-19 65+ [facility]OCOCCAL [facility] 16:55:47 VACCINE (1 - PCV) [code = 65+ PNEUMOCOCCAL VACCINE (1 - PCV)] Future Scheduled 2023-03-19 [facility] 16:55:47 (procedure) [code = 127325668] Future Scheduled 2023-03-19 Screening for [facility] Test 16:55:47 malignant neoplasm of colon (procedure) [code = 026933965] Future Scheduled 2023-03-19 Screening for [facility] Test 16:55:47 malignant neoplasm of colon (procedure) [code = 023873826] Future Scheduled 2023-03-19 SHINGLES VACCINES (1 [facility] 16:55:47 of 2) [code = SHINGLES VACCINES (1 of 2)] Future Scheduled 2023-03-19 [facility]FL[facility]ZA [facility]ACC[facility] 16:55:47 [code = INFLUENZA VACCINE (#1)] Future Scheduled 2023-01-22 INFLUENZA VACCINE [facility] Test 00:00:00 (Season Ended) [code = [facility] INFLUENZA VACCINE (Season Ended)] Future Scheduled 2022-11-27 Screening for [facility] Test 13:19:38 malignant neoplasm of colon (procedure) [code = 039605541] Future Scheduled 2022-11-27 Screening for [facility] Test 13:19:38 malignant neoplasm of colon (procedure) [code = 944773541] Future Scheduled 2022-11-27 Screening for [facility] Test 13:19:38 malignant neoplasm of colon (procedure) [code = 664670939] Future Scheduled 2022-11-27 COVID-19 VACCINE (#1) [facility] Test 13:19:38 [code = COVID-19 VACCINE (#1)] Future Scheduled 2022-11-27 65+ [facility]OCOCCAL [facility] Test 13:19:38 VACCINE (1 - PCV) [code = 65+ PNEUMOCOCCAL VACCINE (1 - PCV)] Future Scheduled 2022-11-27 [facility] Test 13:19:38 (procedure) [code = 778727331] Future Scheduled 2022-11-27 Screening for [facility] Test 13:19:38 malignant neoplasm of colon (procedure) [code = 420939335] Future Scheduled 2022-11-27 Screening for [facility] Test 13:19:38 malignant neoplasm of colon (procedure) [code = 020024661] Future Scheduled 2022-11-27 [facility]19:38 of 2) [code = SHINGLES VACCINES (1 of 2)] Future Scheduled 2022-11-27 INFLUENZA VACCINE [facility] Test 13:19:38 [code = INFLUENZA VACCINE] Future Scheduled 2022-11-13 Screening for [facility] Test 09:21:59 malignant neoplasm of colon (procedure) [code = 710743182] Future Scheduled 2022-11-13 Screening for [facility] Test 09:21:59 malignant neoplasm of colon (procedure) [code = 557317652] Future Scheduled 2022-11-13 Screening for [facility] Test 09:21:59 malignant neoplasm of colon (procedure) [code = 668334049] Future Scheduled 2022-11-13 COVID-19 VACCINE (#1) [facility] Test 09:21:59 [code = COVID-19 VACCINE (#1)] Future Scheduled 2022-11-13 65+ [facility] 09:21:59 VACCINE (1 - PCV) [code = 65+ PNEUMOCOCCAL VACCINE (1 - PCV)] Future Scheduled 2022-11-13 [facility] Test 09:21:59 (procedure) [code = 142512935] Future Scheduled 2022-11-13 Screening for [facility] Test 09:21:59 malignant neoplasm of colon (procedure) [code = 452834307] Future Scheduled 2022-11-13 Screening for [facility] Test 09:21:59 malignant neoplasm of colon (procedure) [code = 855924441] Future Scheduled 2022-11-13 SH[facility]INES [facility] 09:21:59 of 2) [code = SHINGLES VACCINES (1 of 2)] Future Scheduled 2022-11-13 IN[facility]UENZA VACCINE [facility] Test 09:21:59 [code = INFLUENZA VACCINE] Future Scheduled 2022-11-01 Screening for [facility] Test 02:00:11 malignant neoplasm of colon (procedure) [code = 035541315] Future Scheduled 2022-11-01 Screening for [facility] Test 02:00:11 malignant neoplasm of colon (procedure) [code = 101959735] Future Scheduled 2022-11-01 Screening for [facility] Test 02:00:11 malignant neoplasm of colon (procedure) [code = 986311575] Future Scheduled 2022-11-01 COVID-19 VACCINE (#1) [facility] 02:00:11 [code = COVID-19 VACCINE (#1)] Future Scheduled 2022-11-01 65+ [facility] Test 02:00:11 VACCINE (1 - PCV) [code = 65+ PNEUMOCOCCAL VACCINE (1 - PCV)] Future Scheduled 2022-11-01 [facility] 02:00:11 (procedure) [code = 424338317] Future Scheduled 2022-11-01 Screening for [facility] Test 02:00:11 malignant neoplasm of colon (procedure) [code = 509996164] Future Scheduled 2022-11-01 Screening for [facility] Test 02:00:11 malignant neoplasm of colon (procedure) [code = 566675630] Future Scheduled 2022-11-01 SHINGLES VACCINES (1 [facility] 02:00:11 of 2) [code = SHINGLES VACCINES (1 of 2)] Future Scheduled 2022-11-01 INFLUENZA VACCINE [facility] Test 02:00:11 [code = INFLUENZA VACCINE] Future Scheduled 2022-08-[address] [facility] [address] [facility] Test [facility]00 measurement [facility] (procedure) [code = 27407711] Future Scheduled 2022-05-[address] [...] 00:00:00 examination Medical Center (regime/therapy) [code = 820243022] Future Scheduled 1960 Urine screening for [facility] Test 00:00:00 protein (procedure) Medical Center [code = 633303283] Future Scheduled 1956 PNEUMOCOCCAL 65+ YRS [facility] [...] [facility] colon (procedure) [code = 571739731] Future Scheduled [address] [facility] Test 00:00:00 malignant neoplasm of [facility] colon (procedure) [code = 034937150] Future Scheduled [address] [facility] Test 00:00:00 malignant [facility] of [facility] (procedure) [code = 546317129] Future Scheduled [address] [facility] Test 00:00:00 malignant neoplasm of [facility] colon (procedure) [code = 913167363] Future Scheduled 1950 Sigmoidoscopy [code = [facility] Test 00:00:00 Sigmoidoscopy] [facility] Start End Encounter Admission Attending Care Care Encounter Source Date/Time Date/Time Type Type Clinicians Facility Department ID 2022-08-11 [facility] ER [facility] Cardiology [id number] 00:00:00 Encounter [facility] 2022-10-26 2022-10-26 Outpatient GEOVANNY COSME [facility] [id number] SLE 07:59:06 23:59:00 MORALES 2022-10-26 2022-10-26 Outpatient GEOVANNY BLAIRE [facility] [id number] SLE 08:35:25 08:35:25 DONITA 2022-10-20 2022-10-20 Orders Alfredo Olson 1.2.840.1 [id number] Methodi 00:00:00 00:00:00 Only Jose Maria 27501.1.[address] 3.430.2.7 Hospit a .3.572290 l .8 2022-10-20 2022-10-20 Orders Alfredo Olson 1.2.840.1 [id number] Methodi 00:00:00 00:00:00 Only Jose Maria 48039.1.[address] 3.430.2.7 Hospit a .3.181923 l .8 2022-10-14 2022-10-14 Office Alfredo Olson 1.2.840.1 [id number] Methodi 09:20:00 10:43:55 Visit Jose Maria 04195.1.[address] 3.430.2.7 Hospit a .3.513762 l .8 2022-10-14 2022-10-14 Office Alfredo Olson 1.2.840.1 [id number] Methodi 09:20:00 10:43:55 Visit Jose Maria 54470.1.[address] 3.430.2.7 Hospit a .3.965491 l .8 2022-10-14 2022-10-14 Travel 1.2.840.1 1.2.203.804 [id number] [id number] Methodi 00:00:00 00:00:[address] 3.430.2.7 0.2.7.3.698 Ho spita .3.720969 084.8 l .8 2022-10-14 2022-10-14 Outpatient [facility] [id number] [place] 00:00:00 00:00:[address] 2022-10-14 2022-10-14 Travel 1.2.840.1 1.2.324.419 [id number] [id number] Methodi 00:00:00 00:00:[address] 3.430.2.7 0.2.7.3.698 Ho spita .3.869015 084.8 l .8 2022-10-08 2022-10-08 Outpatient [facility] [id number] [facility] 00:00:00 00:00:00 2022-09-30 2022-09-30 Telephone Younis, 1.2.840.1 [id number] Methodi 00:00:00 00:00:[address] 3.430.2.7 Hospit a .3.580348 l .8 2022-09-30 2022-09-30 Telephone Younis, 1.2.840.1 [id number] Methodi 00:00:00 00:00:[address] 3.430.2.7 Hospit a .3.667994 l .8 2022-09-28 2022-09-28 Office Alfredo Olson 1.2.840.1 [id number] Methodi 10:00:00 11:00:28 Visit Jose Maria 37903.1.[address] 3.430.2.7 Hospit a .3.369471 l .8 2022-09-28 2022-09-28 Office Alfredo Olson 1.2.840.1 [id number] Methodi 10:00:00 11:00:28 Visit Ali 55406.1.[address] 3.430.2.7 Hospit a .3.479184 l .8 2022-09-28 2022-09-28 Travel 1.2.840.1 1.2.697.939 [id number] Methodi 00:00:00 00:00:[address] 3.430.2.7 0.2.7.3.698 Ho spita .3.895190 084.8 l .8 2022-09-28 2022-09-28 Travel 1.2.840.1 1.2.856.002 7487 [id number] Methodi 00:00:00 00:00:[address] 3.430.2.7 0.2.7.3.698 Ho spita .3.462500 084.8 l .8 2022-09-14 2022-09-14 Outpatient GEOVANNY ROLLINS [facility] [id number] SLE 00:00:00 00:00:00 JENSEN 2022-09-14 2022-09-14 Travel 1.2.840.1 1.2.155.013 [id number] [id number] Methodi 00:00:00 00:00:[address] 3.430.2.7 0.2.7.3.698 Ho spita .3.374903 084.8 l .8 2022-09-14 2022-09-14 Travel 1.2.840.1 1.2.333.486 [id number] Methodi 00:00:00 00:00:[address] 3.430.2.7 0.2.7.3.698 Ho spita .3.394173 084.8 l .8 2022-09-07 2022-09-07 [facility] [id number] SLE 00:00:00 00:00:00 JOAQUIN 2022-08-11 2022-09-02 Inpatient ER JERRELL VILLAFUERTE [facility] Cardiology 20 [id number] SLE 18:56:00 10:40:00 2022-08-25 2022-08-25 Outpatient [facility]NY [facility]INS [facility] [id number] [facility] 00:00:00 00:00:00 JOAQUIN 2022-08-24 2022-08-24 Surgery Brady Cortes [facility] [id number] [facility] [address] 07:30:00 18:01:00 R [facility] 2022-08-24 2022-08-24 Anesthesia Aubrey Moore [facility] [id number] [facility] St 07:12:00 14:26:00 Event Basilio Ryan [facility] 2022-08-18 2022-08-18 Surgery Alfredo Olson [facility] [id number] [facility] [address] 11:50:00 13:56:00 A [facility] 2022-08-11 2022-08-11 Orders [facility] [id number] [facility] [address] 00:00:00 00:00:00 Only [facility] 2022-08-11 2022-08-11 Travel [facility] [id number] [facility] 00:00:00 00:00:00 [facility] Results Test Description Test Time Test Comments Results Result Sour e Comments XR CHEST 2 VIEWS 2022-10-26 08:50:[facility] 1950 Sex: M Chest PA and lateralCOMPARISON STUDY: 08/27/2022History provided: Postop evaluationHeart size within normal limits. Prior sternotomy. Lungs free of activedisease and vascularity normal. Valvular prosthesis in place. MISCELLANEOUS LAB ORDER 2022-09-14 12:47:12 Test Item Value Reference Range Interpretation Comme nts SCAN RESULT (test code = 9204462) JESSICA See scanned report.MISCELLANEOUS LAB [id number] 10:19:53 Test Item Value Reference Range Interpretation Comments SCAN RESULT (test code = 3947345) See attachment TISSUE [id number] 17:02:15Surgical Pathology Report Case: [id number] Authorizing Provider: Brady Cortes MD Collected: 08/24/2022 12:50 PM Ordering Location: [facility] CV Recovery Room 2 Received: 08/24/2022 03:01 PM Pathologist: Joanne Moody MD Specimen: Aortic Valve, AORTIC VALVE LEAFLET A. Aortic valve, replacement: - Valvular tissue with fibrotic changes, myxomatous degeneration and extensive calcification - No histopathologic evidence of inflammation Signing Pathologist Direct Phone Line: [phone] signed by Joanen Moody MD on 09/02/2022 at 5:02 [id number] CAD, NSTEMI, aortic valve stenosis. A. Aortic ValveReceived fresh, labeled with the patient's name, MRN number and "aortic valve leaflet" is a tissue specimen that consists of multiple salcido-yellow leaflets aggregating to 5.0 x 2.0 x 0.5 cm. Focally calcification is noted. No vegetations or fenestrations are grossly seen. Transportation Engineering Technician sections are submitted in A1 following decalcification. CRISTI Zimmermanicroscopic examination is performed and the salient findings are incorporated into the final diagnosis and comment sections. [facility], Department of Pathology, [address] [place] [address], [facility], [address] [place] [address], [facility], Department of [facility]ology, [address] [place] [address], ZFF-Glucose [id number] 08:15:46 Test Item Value Reference Range Interpretation Comments POC-Glucose Meter (test 112 mg/dL 70-110 H : TE STED AT [facility] code = 1538) 6720 [facility], 770 30: Fiber Worker/Techni maikol ID = [id number] for Faustino Gan ie Lab Interpretation (test Abnormal code = 62928-2) [facility] [id number] 08:15:46 Test Item Value Reference Range Interpretation Comments POC-GLUCOSE METER 112 mg/dL 70-110 H : TESTED A T [facility] 6720 (BEAKER) (test code [facility], = 1538) [address]: Fiber Worker/Techni maikol ID = [id number] for Laura Sahu HEPATIC FUNCTION [id number] 06:07:13 Test Item Value Reference Range Interpretation [...] (test code = 51 U/L 6-55 347) Fiber Worker ID - [id number] 06:07:12 Test Item Value Reference Range Interpretation Comments MAGNESIUM (BEAKER) (test code = 2.0 mg/dL 1.6-2.6 627) Fiber Worker ID - DBBASIC METABOLIC [id number] 06:07:11 Test Item Value Reference Range Interpretation [...] not appl icable for dialysis patien ts Fiber Worker ID - DBCBC (HEMOGRAM ONLY)2022-09-02 05:34:18 Test [...] 0-0 (BEAKER) (test code = 413) POCT-GLUCOSE [id number] 21:21:00 Test Item Value Reference Range Interpretation Comments POC-GLUCOSE METER 150 mg/dL 70-110 H : TESTED A T [facility] 6720 (BEAKER) (test code = [facility], 1538) 98303: Fiber Worker/Techni maikol ID = [id number] for FOREST BERMAN POCT-GLUCOSE [id number] 17:19:25 Test Item Value Reference Range Interpretation Comments POC-GLUCOSE METER 119 mg/dL 70-110 H : TESTED A T [facility] 6720 (BEAKER) (test code = [facility], 1538) 16391: Fiber Worker/Techni maikol ID = [id number] for ANDREI OBRIEN, ADI POCT-GLUCOSE [id number] 12:47:58 Test Item Value Reference Range Interpretation Comments POC-GLUCOSE METER 147 mg/dL 70-110 H : TESTED A T [facility] 6720 (BEAKER) (test code = [facility], 1538) 82528: Fiber Worker/Techni maikol ID = [id number] for ANDREI OBRIEN, ADI POCT-GLUCOSE [id number] 07:23:02 Test Item Value Reference Range Interpretation Comments POC-GLUCOSE METER 109 mg/dL 70-110 : TESTED A T [facility] 6720 (BEAKER) (test code = [facility], 1538) 50736: Fiber Worker/Techni maikol ID = [id number] for ANDREI OBRIEN, ADI [id number] 05:52:46 Test Item Value Reference Range Interpretation Comments MAGNESIUM (BEAKER) (test code = 1.8 mg/dL 1.6-2.6 627) Fiber Worker ID - DBHEPATIC FUNCTION [id number] 05:52:46 Test Item Value Reference Range Interpretation [...] code = 71 U/L 6-55 H 347) Fiber Worker ID - DBBASIC METABOLIC [id number] 05:52:45 Test Item Value Reference Range Interpretation [...] not appl icable for dialysis patien ts Fiber Worker ID - DBCBC (HEMOGRAM ONLY)2022-09-01 05:36:57 Test [...] 0-0 (BEAKER) (test code = 413) POCT-GLUCOSE [id number] 17:32:06 Test Item Value Reference Range Interpretation Comments POC-GLUCOSE METER 151 mg/dL 70-110 H : TESTED A T [facility] 6720 (BEAKER) (test code = [facility] [place], 1538) [address]: Fiber Worker/Techni maikol ID = [id number] for ADI CHACON HEPATIC FUNCTION [id number] 13:47:34 Test Item Value Reference Range Interpretation [...] code = 113 U/L 6-55 H 347) Fiber Worker ID - [id number] 13:47:33 Test Item Value Reference Range Interpretation Comments MAGNESIUM (BEAKER) (test code = 1.9 mg/dL 1.6-2.6 627) Fiber Worker ID - JSPOCT-GLUCOSE [id number] 12:42:11 Test Item Value Reference Range Interpretation Comments POC-GLUCOSE METER 136 mg/dL 70-110 H : TESTED A T [facility] 6720 (BEAKER) (test code = [facility] [employer] [facility], 1538) 93652: Fiber Worker/Techni maikol ID = [id number] for ADI CHACON POCT-GLUCOSE [id number] 07:29:38 Test Item Value Reference Range Interpretation Comments POC-GLUCOSE METER 104 mg/dL 70-110 : TESTED A T [facility] 6720 (BEAKER) (test code = [facility] [employer] [facility], 1538) 32454: Fiber Worker/Techni maikol ID = [id number] for ADI CHACON BASIC METABOLIC [id number] 07:07:41 Test Item Value Reference Range Interpretation [...] not appl icable for dialysis patien kelvin Fiber Worker ID - RMCBC (HEMOGRAM ONLY)2022-08-31 05:47:14 Test [...] 0-0 (BEAKER) (test code = 413) POCT-GLUCOSE [id number] 17:24:42 Test Item Value Reference Range Interpretation Comments POC-GLUCOSE METER 133 mg/dL 70-110 H : TESTED A T [facility] 6720 (BEAKER) (test code = [facility] [place], 1538) [address]: Fiber Worker/Techni maikol ID = [id number] for Juan David Orlando delgado POCT-GLUCOSE [id number] 12:23:57 Test Item Value Reference Range Interpretation Comments POC-GLUCOSE METER 197 mg/dL 70-110 H : TESTED A T [facility] 6720 (BEAKER) (test code = [facility], 1538) 65226: Fiber Worker/Techni maikol ID = [id number] for Co rtez, Jeannie POCT-GLUCOSE [id number] 08:17:56 Test Item Value Reference Range Interpretation Comments POC-GLUCOSE METER 110 mg/dL 70-110 : TESTED A T [facility] 6720 (BEAKER) (test code = [facility], 1538) 35625: Fiber Worker/Techni maikol ID = [id number] for Co rtez, Jeannie POCT-GLUCOSE [id number] 06:54:21 Test Item Value Reference Range Interpretation Comments POC-GLUCOSE METER 163 mg/dL 70-110 H : TESTED A T [facility] 6720 (BEAKER) (test code = [facility], 1538) 71997: Fiber Worker/Techni maikol ID = [id number] for PI TTS, VITALY HEPATIC FUNCTION [id number] 06:47:45 Test Item Value Reference Range Interpretation [...] code = 138 U/L 6-55 H 347) Fiber Worker ID - GENI GBASIC METABOLIC [id number] 06:47:44 Test Item Value Reference Range Interpretation [...] (test code = 697) EGFR (BEAKER) 73 Interpretati on of eGFR (test code = [...] not appl icable for dialysis patien ts Fiber Worker ID - GENI [id number] 06:47:44 Test Item Value Reference Range Interpretation Comments MAGNESIUM (BEAKER) (test code = 1.9 mg/dL 1.6-2.6 627) Fiber Worker ID - GENI GCBC (HEMOGRAM ONLY)2022-08-30 06:39:40 [...] CELLS (BEAKER) (test code = 413) POCT-GLUCOSE [id number] 19:58:44 Test Item Value Reference Range Interpretation Comments POC-GLUCOSE METER 159 mg/dL 70-110 H : TESTED A T [facility] 6720 (BEAKER) (test code = [facility], 1538) 53292: Fiber Worker/Techni maikol ID = [id number] for PI TTS VITALY POCT-GLUCOSE [id number] 17:28:51 Test Item Value Reference Range Interpretation Comments POC-GLUCOSE METER 116 mg/dL 70-110 H : TESTED A T [facility] 6720 (BEAKER) (test code = [facility], 1538) 97904: Fiber Worker/Techni maikol ID = [id number] for Co rtez, [place] POCT-GLUCOSE [id number] 12:10:59 Test Item Value Reference Range Interpretation Comments POC-GLUCOSE METER 171 mg/dL 70-110 H : TESTED A T [facility] 6720 (BEAKER) (test code = [facility], 1538) 43939: Fiber Worker/Techni maikol ID = [id number] for Co rtez, [place] POCT-GLUCOSE [id number] 07:25:17 Test Item Value Reference Range Interpretation Comments POC-GLUCOSE METER 148 mg/dL 70-110 H : TESTED A T [facility] 6720 (BEAKER) (test code = [facility], 1538) 26115: Fiber Worker/Techni maikol ID = [id number] for Co rtez, [place] HEPATIC FUNCTION [id number] 06:46:57 Test Item Value Reference Range Interpretation [...] code = 184 U/L 6-55 H 347) Fiber Worker ID - [id number] 06:46:56 Test Item Value Reference Range Interpretation Comments MAGNESIUM (BEAKER) (test code = 2.0 mg/dL 1.6-2.6 627) Fiber Worker ID - MARCOBASIC METABOLIC [id number] 06:46:55 Test Item Value Reference Range Interpretation [...] not appl icable for dialysis patien ts Fiber Worker ID - MARCOCBC (HEMOGRAM ONLY)2022-08-29 06:29:10 Test [...] H (BEAKER) (test code = 413) POCT-GLUCOSE [id number] 17:34:37 Test Item Value Reference Range Interpretation Comments POC-GLUCOSE METER 145 mg/dL 70-110 H : TESTED A T [facility] 6720 (BEAKER) (test code = [facility], 1538) 03589: Fiber Worker/Techni maikol ID = [id number] for Ba rrera, Yolanda POCT-GLUCOSE [id number] 17:07:24 Test Item Value Reference Range Interpretation Comments POC-GLUCOSE METER 169 mg/dL 70-110 H : TESTED A T [facility] 6720 (BEAKER) (test code = [facility], 1538) 30393: Fiber Worker/Techni maikol ID = [id number] for Ba rrera, Yolanda POCT-GLUCOSE [id number] 17:07:17 Test Item Value Reference Range Interpretation Comments POC-GLUCOSE METER 116 mg/dL 70-110 H : TESTED A T [facility] 6720 (BEAKER) (test code = [facility] [place], 1538) 05912: Fiber Worker/Techni maikol ID = [id number] for Yolanda Marx 2D Echo W/Doppler(CW/PW/Color)2022-08-28 16:13:58Ejection FractionSLEH ECHO HEARTLAB MKCKESSON [facility] NATRI[facility] FA[facility] (BNP)2022-08-28 14:35:14 Test Item Value Reference Range Interpretation Comments B-TYPE NATRIURETIC PEPTIDE (BEAKER) 909 pg/mL 0-100 H (test code = 700) Fiber Worker ID - BSLACTIC ACID, [id number] 14:04:07 Test Item Value Reference Range Interpretation Comments LACTATE BLOOD VENOUS (2) (BEAKER) 2.68 mmol/L 0.50-2.00 H (test code = 2872) Fiber Worker ID - MARCOHEPATIC FUNCTION [id number] 08:21:33 Test Item Value Reference Range Interpretation [...] code = 137 U/L 6-55 H 347) Fiber Worker ID - BSBASIC METABOLIC [id number] 08:21:32 Test Item Value Reference Range Interpretation [...] not appl icable for dialysis patien ts Fiber Worker ID - [id number] 08:21:32 Test Item Value Reference Range Interpretation Comments MAGNESIUM (BEAKER) (test code = 2.0 mg/dL 1.6-2.6 627) Fiber Worker ID - BSCBC (HEMOGRAM ONLY)2022-08-28 05:47:54 Test [...] = 413) RAD, CHEST, 1 VIEW, NON [id number] 22:52:00Reason for exam:->chest tube removalShould this be performed at the bedside?->Yes [facility] 1950 Sex: MFINAL [...] Aubrey HandyMDReport Verified Date/Time: 08/27/2022 22:52:45 -GLUCOSE [id number] 21:10:23 Test Item Value Reference Range Interpretation Comments POC-GLUCOSE METER 145 mg/dL 70-110 H : TESTED A T [facility] 6720 (BEAKER) (test code = [facility] [place] [facility], 1538) [address]: Fiber Worker/Techni maikol ID = [id number] for GAEL ALVA BASIC METABOLIC [id number] 17:49:06 Test Item Value Reference Range Interpretation [...] i s not applicable for dialysis patients Fiber Worker ID - BSOperator ID - BSPOCT-GLUCOSE [id number] 17:48:28 Test Item Value Reference Range Interpretation Comments POC-GLUCOSE METER 146 mg/dL 70-110 H : TESTED A T [facility] 6720 (BEAKER) (test code = BHAVNA Gutiérrez [facility], 1538) [address]: Fiber Worker/Techni maikol ID = [id number] for Co Kevin paulsona POCT-GLUCOSE [id number] 12:51:28 Test Item Value Reference Range Interpretation Comments POC-GLUCOSE METER 201 mg/dL 70-110 H : TESTED A T [facility] 6720 (NEO) (test code = BHAVNA Gutiérrez [facility], 1538) [address]: Fiber Worker/Techni maikol ID = [id number] for Jeannie Echeverria POCT-GLUCOSE [id number] 07:50:17 Test Item Value Reference Range Interpretation Comments POC-GLUCOSE METER 147 mg/dL 70-110 H : Notified RN/MD: (NEO) (test code = TESTED AT [facility] 6720 1538) JACKIE [facility], [address]: Fiber Worker/Techni maikol ID = [id number] for Samantha Cortes RAD, CHEST, 1 VIEW, NON [id number] 07:18:00Reason for exam:->Post OpShould this be performed at the bedside?->Yes [facility] 1950 Sex: MFINAL REPORT RAD, CHEST, 1 VIEW, NON DEPT INDICATION: Post Op COMPARISON: Prior day's exam FINDINGS: Portable frontal view of the chest. IMPRESSION: Support Lines: [place]-Robert catheter removed with remaining sheath. Otherwise stable support apparatus. Lungs and pleura: Unchanged airspace and pleural opacities, greater on the left. No pneumothorax.Heart and mediastinum: Stable contours. Additional findings: None. Signed: Adelfo Sosaort Verified Date/Time: 08/27/2022 07:18:19 HEPATIC FUNCTION [id number] 03:37:31 Test Item Value Reference Range Interpretation [...] code = 72 U/L 6-55 H 347) Fiber Worker ID - [id number] 03:37:30 Test Item Value Reference Range Interpretation Comments MAGNESIUM (BEAKER) (test code = 2.1 mg/dL 1.6-2.6 627) Fiber Worker ID - [id number] 03:37:30 Test Item Value Reference Range Interpretation Comments PHOSPHORUS (BEAKER) (test code = 3.0 mg/dL 2.3-4.7 604) Fiber Worker ID - MMBASIC METABOLIC [id number] 03:37:29 Test Item Value Reference Range Interpretation [...] not appl icable for dialysis patien ts Fiber Worker ID - MMCBC W/PLT COUNT & AUTO [id number] 03:10:41 Test Item Value Reference Range Interpretation [...] 0.00-1.00 PERCENT (BEAKER) (test code = 2801) [id number] 03:10:40 Test Item Value Reference Range Interpretation [...] is 2.5-3.5 for patients with mechanical heart valves.[id number] 03:10:04 Test Item Value Reference Range Interpretation Comments FIBRINOGEN LEVEL (BEAKER) (test 572 mg/dl 225-434 H code = 658) Lactic Acid, [id number] 03:09:22 Test Item Value Reference Range Interpretation Comments Lactate, Art (test code = 1.7 mmol/L 0.5-2.0 4) SWEETIE (test code = SWEETIE) Fiber Worker ID - BS Lab Interpretation (test Normal code = 41777-8) [facility] CampusLACT[facility] ACID, [id number] 03:09:22 Test Item Value Reference Range Interpretation Comments LACTATE BLOOD ARTERIAL (2) 1.7 mmol/L 0.5-2.0 (BEAKER) (test code = 2874) Fiber Worker ID - BSCALCIUM, [id number] 02:50:58 Test Item Value Reference Range Interpretation Comments CALCIUM IONIZED (BEAKER) (test 1.07 mmol/L 1.12-1.27 L code = 698) PH, BLOOD (BEAKER) (test code = 7.45 1810) POCT-GLUCOSE [id number] 00:17:05 Test Item Value Reference Range Interpretation Comments POC-GLUCOSE METER 142 mg/dL 70-110 H : TESTED A T [facility] 6720 (BEAKER) (test code = BHAVNA Gutiérrez [facility], 1538) [address]: Fiber Worker/Techni maikol ID = [id number] for August Prepare Leuko-Red [id number] 23:55:00 Test Item Value Reference Range Interpretation Comments CROSSMATCH (test code = 2264) COMPATIBLE Unit ABO (test code = O Pos 5659207) UNIT NUMBER (test code = [id number] 934-0) Status (test code = 9362970) [facility] Blood Bank Product (test code RED BLOOD CELLS = 2263) PRODUCT CODE (test code = I0000G44 933-2) [facility] CampusPOCT[facility]UCOSE [id number] 19:03:30 Test Item Value Reference Range Interpretation Comments POC-GLUCOSE METER 141 mg/dL 70-110 H : Notified RN/: (ANYAAKER) (test code = TESTED AT [facility] 6720 1538) [facility], [address]: Fiber Worker/Techni maikol ID = [id number] for Belkys Samantha hutson [id number] 17:43:19 Test Item Value Reference Range Interpretation Comments PHOSPHORUS (BEAKER) (test code = 3.1 mg/dL 2.3-4.7 604) Fiber Worker ID - BASI METABOLIC [id number] 17:43:18 Test Item Value Reference Range Interpretation [...] not appl icable for dialysis patien ts Fiber Worker ID - [id number] 17:43:18 Test Item Value Reference Range Interpretation Comments MAGNESIUM (BEAKER) (test code = 2.2 mg/dL 1.6-2.6 627) Fiber Worker ID - BSCBC (HEMOGRAM ONLY)2022 17:30:14 Test [...] 0-0 (BEAKER) (test code = 413) CALCIUM, [id number] 17:22:49 Test Item Value Reference Range Interpretation Comments CALCIUM IONIZED (BEAKER) (test 1.11 mmol/L 1.12-1.27 L code = 698) PH, BLOOD (BEAKER) (test code = 7.44 1810) POCT-GLUCOSE [id number] 12:11:34 Test Item Value Reference Range Interpretation Comments POC-GLUCOSE METER 155 mg/dL 70-110 H : Notified RN/MD: (NEO) (test code = TESTED AT [facility] 6777 1538) [facility], [address]: Fiber Worker/Techni maikol ID = [id number] for Samantha Cortes RAD, CHEST, 1 VIEW, NON [id number] 10:54:00Reason for exam:->Post OpShould this be performed at the bedside?->Yes [facility] OCTAV[facility]AMEZ : 1950 Sex: MFINAL REPORT RAD, CHEST, 1 VIEW, NON DEPT INDICATION: Post Op COMPARISON: Prior day's exam FINDINGS: Portable frontal view of the chest. IMPRESSION: Support Lines: No significant change. Lungs and pleura: Unchanged airspace and pleural opacities, greater on the left. No pneumothorax.Heart and mediastinum: Stable contours. Additional findings: None. Signed: Adelfo Sosa MDReport Verified Date/Time: 2022 10:54:59 LACTIC ACID, [id number] 09:19:53 Test Item Value Reference Range Interpretation Comments LACTATE BLOOD ARTERIAL (2) 1.1 mmol/L 0.5-2.0 (BEAKER) (test code = 2874) Fiber Worker ID - JUANA WOXYGEN SATURATION, [id number] 09:11:30 Test Item Value Reference Range Interpretation Comments O2 SATURATION (MEASURED) (BEAKER) 66.1 % (test code = 1455) Manual [id number] 07:09:31 Test Item Value Reference Range Interpretation [...] = 3438) SWEETIE (test code = SWEETIE) Fiber Worker ID - [id number] ID - [id number] comments: Slide comments: Lab Interpretation Abnormal (test code = 10828-2) [facility](CELLAVISION MANUAL DIFF)2022 07:09:31 Test Item Value Reference [...] CONCENTRATION Decreased (CELLAVISION)(BEAKER) (test code = 3438) Fiber Worker ID - [id number] ID - [email or web address] comments: Slide comments:CBC W/PLT COUNT & AUTO [id number] 07:09:26 Test Item Value Reference Range Interpretation [...] WBC 0-0 (test code = 413) POCT-GLUCOSE [id number] 06:11:43 Test Item Value Reference Range Interpretation Comments POC-GLUCOSE METER 143 mg/dL 70-110 H : TESTED A T [facility] 6720 (BEAKER) (test code = BHAVNA [place], 1538) [address]: Fiber Worker/Techni maikol ID = [id number] for Karishma Lazar OXYGEN SATURATION, [id number] 06:09:18 Test Item Value Reference Range Interpretation Comments O2 SATURATION (MEASURED) (BEAKER) 80.9 % (test code = 1455) [id number] 03:27:36 Test Item Value Reference Range Interpretation [...] is 2.5-3.5 for patients with mechanical heart valves.[id number] 03:26:55 Test Item Value Reference Range Interpretation Comments FIBRINOGEN LEVEL (BEAKER) (test 479 mg/dl 225-434 H code = 658) [id number] 03:21:57 Test Item Value Reference Range Interpretation Comments PHOSPHORUS (BEAKER) (test code = 4.0 mg/dL 2.3-4.7 604) Fiber Worker ID - ADMINHEPATIC FUNCTION [id number] 03:21:57 Test Item Value Reference Range Interpretation [...] (test code = 29 U/L 6-55 347) Fiber Worker ID - ADMINBASIC METABOLIC [id number] 03:21:56 Test Item Value Reference Range Interpretation [...] not appl icable for dialysis patien ts Fiber Worker ID - [id number] 03:21:56 Test Item Value Reference Range Interpretation Comments MAGNESIUM (BEAKER) (test code = 2.1 mg/dL 1.6-2.6 627) Fiber Worker ID - ADMINLACTIC ACID, [id number] 03:10:07 Test Item Value Reference Range Interpretation Comments LACTATE BLOOD ARTERIAL (2) 1.1 mmol/L 0.5-2.0 (BEAKER) (test code = 2874) Fiber Worker ID - JUANA TRAN SATURATION, [id number] 03:02:28 Test Item Value Reference Range Interpretation Comments O2 SATURATION (MEASURED) (BEAKER) 74.4 % (test code = 1455) Blood gas, [id number] 03:01:49 Test Item Value Reference Range Interpretation Comments pH, Arterial (test code 7.43 7.35-7.45 = 2744-1) pCO2, Arterial (test 35 See_Comment [Autom ated code = 2018-) message] The system which generated this result [...] 32 Lab Interpretation Abnormal (test code = 16995-6) [facility] CampusBLOOD GAS, [id number] 03:01:49 Test Item Value Reference Range Interpretation [...] (BEAKER) (test code = 1819) 32.0 CALCIUM, [id number] 03:00:31 Test Item Value Reference Range Interpretation Comments CALCIUM IONIZED (BEAKER) (test 1.15 mmol/L 1.12-1.27 code = 698) PH, BLOOD (BEAKER) (test code = 7.43 1810) Prepare [id number] 23:54:00 Test Item Value Reference Range Interpretation Comments CROSSMATCH (test code = COMPATIBLE 2264) Unit ABO (test code = O Pos 1086597) UNIT NUMBER (test code = [id number] 934-0) Status (test code = RETURNED FROM ISSUE 8490728) Blood Bank Product (test RED BLOOD CELLS code = 2263) PRODUCT CODE (test code = C1604B76 933-2) [facility] CampusPOCT-GLUCOSE [id number] 23:43:32 Test Item Value Reference Range Interpretation Comments POC-GLUCOSE METER 141 mg/dL 70-110 H : TESTED A T [facility] 6720 (BEAKER) (test code = BHAVNA [place], 1538) [address]: Fiber Worker/Techni maikol ID = [id number] for Karishma Lazar CALCIUM, [id number] 23:42:33 Test Item Value Reference Range Interpretation Comments CALCIUM IONIZED (BEAKER) (test 1.17 mmol/L 1.12-1.27 code = 698) PH, BLOOD (BEAKER) (test code = 7.37 1810) OXYGEN SATURATION, [id number] 23:41:54 Test Item Value Reference Range Interpretation Comments O2 SATURATION (MEASURED) (BEAKER) 72.8 % (test code = 1455) CALCIUM, [id number] 20:49:52 Test Item Value Reference Range Interpretation Comments CALCIUM IONIZED (BEAKER) (test 1.09 mmol/L 1.12-1.27 L code = 698) PH, BLOOD (BEAKER) (test code = 7.32 1810) HGB/HCT (H&H)-Stat [id number] 20:49:51 Test Item Value Reference Range Interpretation Comments Hemoglobin (test code = 9.3 See_Comment L [Au tomated message] 718-7) The system [employer] generated this result transmitted ref erence range: 13.0 - 1 6.8 GM/DL. The refe rence range was not u sed to interpret this result as normal/abnor mal. Hematocrit (test code = 27.0 % 40.0-50.0 L 4544-3) Lab Interpretation (test Abnormal code = 22743-4) [facility] CampusBLOOD GAS, [id number] 20:49:51 Test Item Value Reference Range Interpretation [...] = 1819) 32.0 HGB/HCT (H&H) - STAT [id number] 20:49:51 Test Item Value Reference Range Interpretation Comments HEMOGLOBIN (BEAKER) (test code = 9.3 GM/DL 13.0-16.8 L 410) HEMATOCRIT (BEAKER) (test code = 27.0 % 40.0-50.0 L 411) Sodium Na-Stat [id number] 20:43:04 Test Item Value Reference Range Interpretation Comments Sodium (test code = 2951-2) 136 meq/L 136-145 Lab Interpretation (test code = Normal 54590-8) [facility] CampusPotassium-Stat [id number] 20:43:04 Test Item Value Reference Range Interpretation Comments Potassium (test code = 2823-3) 4.2 meq/L 3.6-5.5 Lab Interpretation (test code = Normal 38802-2) [facility] [id number] 20:43:04 Test Item Value Reference Range Interpretation Comments SODIUM (BEAKER) (test code = 381) 136 meq/L 136-145 POTASSIUM-STAT [id number] 20:43:04 Test Item Value Reference Range Interpretation Comments POTASSIUM (BEAKER) (test code = 4.2 meq/L 3.6-5.5 379) Glucose-Stat [id number] 20:43:03 Test Item Value Reference Range Interpretation Comments Glucose (test code = 2345-7) 130 mg/dL 70-110 H Lab Interpretation (test code = Abnormal 96043-8) [facility] CampusGLUCOSE-STAT [id number] 20:43:03 Test Item Value Reference Range Interpretation Comments GLUCOSE RANDOM (BEAKER) (test code 130 mg/dL 70-110 H = 652) POCT-GLUCOSE [id number] 18:28:36 Test Item Value Reference Range Interpretation Comments POC-GLUCOSE METER 99 mg/dL 70-110 : TESTED A T [facility] 6720 (BEAKER) (test code = BHAVNA Gutiérrez [place], 1538) [address]: Fiber Worker/Techni maikol ID = [id number] for DE L OS ALLIE, ATUL [id number] 16:54:08 Test Item Value Reference Range Interpretation Comments MAGNESIUM (BEAKER) (test code = 2.2 mg/dL 1.6-2.6 627) Fiber Worker ID - [id number] 16:54:08 Test Item Value Reference Range Interpretation Comments PHOSPHORUS (BEAKER) (test code = 4.1 mg/dL 2.3-4.7 604) Fiber Worker ID - BSBASIC METABOLIC [id number] 16:54:07 Test Item Value Reference Range Interpretation [...] 8.4-10.2 L (test code = 697) EGFR ([facility]) 66 Interpretatio n of eGFR (test code [...] not appl icable for dialysis patien ts Fiber Worker ID - BSLACTIC ACID, [id number] 16:48:41 Test Item Value Reference Range Interpretation Comments LACTATE BLOOD ARTERIAL (2) 1.5 mmol/L 0.5-2.0 ([facility]) (test code = 2874) Fiber Worker ID - [id number] 16:42:20 Test Item Value Reference Range Interpretation Comments ACTIVATED CLOTTING TIME 444 sec : 74 -137 seconds, (BEAKER) (test code = Baseli ne: TESTED AT 441) [address], [address]: Fiber Worker/Techni maikol ID = [id number] for WILLIAM POTTER [id number] 16:42:20 Test Item Value Reference Range Interpretation Comments ACTIVATED CLOTTING TIME 498 sec : 74 -137 seconds, (BEAKER) (test code = Baseli ne: TESTED AT 441) [address], 770 [address]: Fiber Worker/Techni maikol ID = [id number] for WILLIAM POTTER [id number] 16:42:19 Test Item Value Reference Range Interpretation Comments ACTIVATED CLOTTING TIME 492 sec : 74 -137 seconds, (BEAKER) (test code = Baseli ne: TESTED AT 441) [address], 770 [address]: Fiber Worker/Techni maikol ID = [id number] for WILLIAM POTTER POC ACTIVATED CLOTTING [id number] 16:41:45 Test Item Value Reference Range Interpretation Comments Activated Clotting Time 113 sec : 74 -137 seconds, (test code = 3184-9) Baselin e: TESTED AT [address], [facility] 30: Fiber Worker/Techni maikol ID = [id number] for WILLIAM [id number] 16:41:45 Test Item Value Reference Range Interpretation Comments ACTIVATED CLOTTING TIME 113 sec : 74 -137 seconds, (BEAKER) (test code = Baseli ne: TESTED AT 441) [address], [facility] 30: Fiber Worker/Techni maikol ID = [id number] for WILLIAM POTTER [id number] 16:41:44 Test Item Value Reference Range Interpretation Comments ACTIVATED CLOTTING TIME 438 sec : 74 -137 seconds, (BEAKER) (test code = Baseli ne: TESTED AT 441) [address], [facility] 30: Fiber Worker/Techni maikol ID = [id number] for WILLIAM POTTER [id number] 16:41:44 Test Item Value Reference Range Interpretation Comments ACTIVATED CLOTTING TIME 402 sec : 74 -137 seconds, (BEAKER) (test code = Baseli ne: TESTED AT 441) [address], [facility] 30: Fiber Worker/Techni maikol ID = [id number] for WILLIAM POTTER [id number] 16:41:43 Test Item Value Reference Range Interpretation Comments ACTIVATED CLOTTING TIME 137 sec : 74 -137 seconds, (BEAKER) (test code = Baseli ne: TESTED AT 441) [address], [facility] 30: Fiber Worker/Techni maikol ID = [id number] for WILLAIM POTTER CBC (HEMOGRAM ONLY)2022-08-25 16:36:09 Test Item [...] 0-0 (BEAKER) (test code = 413) CALCIUM, [id number] 16:07:02 Test Item Value Reference Range Interpretation Comments CALCIUM IONIZED (BEAKER) (test 1.10 mmol/L 1.12-1.27 L code = 698) PH, BLOOD (BEAKER) (test code = 7.44 1810) POCT-GLUCOSE [id number] 16:04:46 Test Item Value Reference Range Interpretation Comments POC-GLUCOSE METER 115 mg/dL 70-110 H : TESTED A T [facility] 6720 ([facility]) (test code = [facility] [place] [employer] [facility], 153) [address]: Fiber Worker/Techni maikol ID = [id number] for [employer], [employer] LACTIC ACID, [id number] 13:00:33 Test Item Value Reference Range Interpretation Comments LACTATE BLOOD ARTERIAL (2) 2.2 mmol/L 0.5-2.0 H (BEAKER) (test code = 2874) Fiber Worker ID - MARCOPOCT-GLUCOSE [id number] 12:25:36 Test Item Value Reference Range Interpretation Comments POC-GLUCOSE METER 137 mg/dL 70-110 H : TESTED A T [facility] 6720 (BEAKER) (test code = [facility] [place] [employer] [facility], 153) [address]: Fiber Worker/Techni maikol ID = [id number] for [employer], X avier BASIC METABOLIC [id number] 09:44:09 Test Item Value Reference Range Interpretation [...] decreased 60-89 G3a Mildl y to moderately 45- 59 G3b Moderately to s everely 30-44 G4 Severl y decreased 15-29 G5 Kidney failure <15Reported eGF R is based on the CKD-EPI 2021 equation that d oes not use a race coefficientEsti mated GFR is not as accur ate as Creatinine Jessica phil in predicting glom erular filtration rate . Estimated GFR is not appl icable for dialysis patien ts Fiber Worker ID - MARCOLACTIC ACID, [id number] 09:41:56 Test Item Value Reference Range Interpretation Comments LACTATE BLOOD ARTERIAL (2) 3.2 mmol/L 0.5-2.0 H (BEAKER) (test code = 2874) Fiber Worker ID - MARCOBLOOD GAS, [id number] 09:03:19 Test Item Value Reference Range Interpretation [...] (BEAKER) (test code = 1819) 100.0 CALCIUM, [id number] 09:03:17 Test Item Value Reference Range Interpretation Comments CALCIUM IONIZED (BEAKER) (test 1.17 mmol/L 1.12-1.27 code = 698) PH, BLOOD (BEAKER) (test code = 7.43 1810) OXYGEN SATURATION, [id number] 09:03:15 Test Item Value Reference Range Interpretation Comments O2 SATURATION (MEASURED) (BEAKER) 61.8 % (test code = 1455) POCT-GLUCOSE [id number] 08:59:05 Test Item Value Reference Range Interpretation Comments POC-GLUCOSE METER 162 mg/dL 70-110 H : TESTED A T [facility] 6720 (BEAKER) (test code = [facility], 1538) [address]: Fiber Worker/Techni maikol ID = [id number] for [employer], X avier POCT-GLUCOSE [id number] 07:38:28 Test Item Value Reference Range Interpretation Comments POC-GLUCOSE METER 175 mg/dL 70-110 H : TESTED A T [facility] 6720 (BEAKER) (test code = [facility], 1538) [address]: Fiber Worker/Techni maikol ID = [id number] for Hover-Yan, X avier RAD, CHEST, 1 VIEW, NON [id number] 07:17:00Reason for exam:->Post OpShould this be performed at the bedside?->Yes [facility] : 1950 Sex: MFINAL REPORT RAD, CHEST, 1 VIEW, NON DEPT INDICATION: Post Op COMPARISON: Prior day's exam FINDINGS: Portable frontal view of the chest. IMPRESSION: Support Lines: ET tube and enterictube removed. [place]-Robert catheter tip overlies the pulmonary outflow tract. Otherwise, stable supportapparatus. Lungs and pleura: No significant change in left greater than right airspace and pleural opacities. No pneumothorax.Heart and mediastinum: Stable contours. Additional findings: None. Signed: Adelfo Sosa Verified Date/Time: 08/25/2022 07:17:45 POCT-GLUCOSE [id number] 06:39:18 Test Item Value Reference Range Interpretation Comments POC-GLUCOSE METER 177 mg/dL 70-110 H : TESTED A T [facility] 6720 (BEAKER) (test code = [facility], 1538) [address]: Fiber Worker/Techni maikol ID = [id number] for Marina do (contract), [facility] POCT-GLUCOSE [id number] 03:31:00 Test Item Value Reference Range Interpretation Comments POC-GLUCOSE METER 160 mg/dL 70-110 H : TESTED A T [facility] 6720 (BEAKER) (test code = [facility] [place] [employer] [facility], 1538) [address]: Fiber Worker/Techni maikol ID = [id number] for Marina do (contract), [facility] HEPATIC FUNCTION [id number] 03:00:46 Test Item Value Reference Range Interpretation [...] (test code = 26 U/L 6-55 347) Fiber Worker ID - [id number] 03:00:45 Test Item Value Reference Range Interpretation Comments MAGNESIUM (BEAKER) (test code = 2.3 mg/dL 1.6-2.6 627) Fiber Worker ID - [id number] 03:00:45 Test Item Value Reference Range Interpretation Comments PHOSPHORUS (BEAKER) (test code = 4.3 mg/dL 2.3-4.7 604) Fiber Worker ID - MARCOBASIC METABOLIC [id number] 03:00:44 Test Item Value Reference Range Interpretation [...] not appl icable for dialysis patien ts Fiber Worker ID - MARCOOXYGEN SATURATION, [id number] 02:50:03 Test Item Value Reference Range Interpretation Comments O2 SATURATION (MEASURED) (BEAKER) 74.2 % (test code = 1455) LACTIC ACID, [id number] 02:49:22 Test Item Value Reference Range Interpretation Comments LACTATE BLOOD ARTERIAL (2) 2.2 mmol/L 0.5-2.0 H (BEAKER) (test code = 2874) Fiber Worker ID - [id number] 02:47:18 Test Item Value Reference Range Interpretation [...] for patients with mechanical heart valves.BLOOD GAS, [id number] 02:47:06 Test Item Value Reference Range Interpretation [...] TEMPERATURE (BEAKER) 37.0 (test code = 1818) [id number] 02:47:01 Test Item Value Reference Range Interpretation Comments FIBRINOGEN LEVEL (BEAKER) (test 306 mg/dl 225-434 code = 658) CALCIUM, [id number] 02:46:38 Test Item Value Reference Range Interpretation Comments CALCIUM IONIZED (BEAKER) (test 1.18 mmol/L 1.12-1.27 code = 698) PH, BLOOD (BEAKER) (test code = 7.46 1810) CBC W/PLT COUNT & AUTO [id number] 02:39:48 Test Item Value Reference Range Interpretation [...] PERCENT (BEAKER) (test code = 2801) POCT-GLUCOSE [id number] 01:27:59 Test Item Value Reference Range Interpretation Comments POC-GLUCOSE METER 167 mg/dL 70-110 H : TESTED A T [facility] 6720 (BEAKER) (test code = [facility], 1538) [address]: Fiber Worker/Techni maikol ID = [id number] for Marina do (contract), [employer] POCT-GLUCOSE [id number] 00:21:36 Test Item Value Reference Range Interpretation Comments POC-GLUCOSE METER 162 mg/dL 70-110 H : TESTED A T [facility] 6720 (BEAKER) (test code = [facility], 1538) [address]: Fiber Worker/Techni maikol ID = [id number] for Marina do (contract), [employer] BLOOD GAS, [id number] 23:17:40 Test Item Value Reference Range Interpretation [...] (BEAKER) 37.0 (test code = 1818) POCT-GLUCOSE [id number] 23:16:58 Test Item Value Reference Range Interpretation Comments POC-GLUCOSE METER 164 mg/dL 70-110 H : TESTED A T [facility] 6720 (BEAKER) (test code = [facility], 1538) [address]: Fiber Worker/Techni maikol ID = [id number] for Marina do (contract), [employer] POCT-GLUCOSE [id number] 22:05:48 Test Item Value Reference Range Interpretation Comments POC-GLUCOSE METER 149 mg/dL 70-110 H : TESTED A T [facility] 6720 (BEAKER) (test code = [facility] [place], 1538) 77151: Fiber Worker/Techni maikol ID = [id number] for Marina do (contract), Jaime armas LACTIC ACID, [id number] 21:28:41 Test Item Value Reference Range Interpretation Comments LACTATE BLOOD ARTERIAL (2) 2.9 mmol/L 0.5-2.0 H (BEAKER) (test code = 2874) Fiber Worker ID - BSHGB/HCT (H&H) - STAT [id number] 21:13:01 Test Item Value Reference Range Interpretation Comments HEMOGLOBIN (BEAKER) (test code = 9.7 GM/DL 13.0-16.8 L 410) HEMATOCRIT (BEAKER) (test code = 29.0 % 40.0-50.0 L 411) BLOOD GAS, [id number] 21:13:00 Test Item Value Reference Range Interpretation [...] (BEAKER) (test code = 1819) 100.0 POTASSIUM-STAT [id number] 21:12:04 Test Item Value Reference Range Interpretation Comments POTASSIUM (BEAKER) (test code = 4.6 meq/L 3.6-5.5 379) GLUCOSE-STAT [id number] 21:12:03 Test Item Value Reference Range Interpretation Comments GLUCOSE RANDOM (BEAKER) (test code 172 mg/dL 70-110 H = 652) SODIUM NA-STAT [id number] 21:12:03 Test Item Value Reference Range Interpretation Comments SODIUM (BEAKER) (test code = 381) 138 meq/L 136-145 LACTIC ACID, [id number] 20:00:51 Test Item Value Reference Range Interpretation Comments LACTATE BLOOD ARTERIAL (2) 3.9 mmol/L 0.5-2.0 H (BEAKER) (test code = 2874) Fiber Worker ID - BSPOCT-GLUCOSE [id number] 19:59:57 Test Item Value Reference Range Interpretation Comments POC-GLUCOSE METER 132 mg/dL 70-110 H : [facility] (BEAKER) (test code = BHAVNA Gutiérrez [place], 1538) [address]: Fiber Worker/Techni maikol ID = [id number] for Marina do (contract)Jaime CALCIUM, [id number] 19:49:18 Test Item Value Reference Range Interpretation Comments CALCIUM IONIZED (BEAKER) (test 1.08 mmol/L 1.12-1.27 L code = 698) PH, BLOOD (BEAKER) (test code = 7.43 1810) HGB/HCT (H&H) - STAT [id number] 19:49:06 Test Item Value Reference Range Interpretation Comments HEMOGLOBIN (BEAKER) (test code = 10.1 GM/DL 13.0-16.8 L 410) HEMATOCRIT (BEAKER) (test code = 30.0 % 40.0-50.0 L 411) BLOOD GAS, [id number] 19:49:05 Test Item Value Reference Range Interpretation [...] (BEAKER) (test code = 1819) 21.0 POTASSIUM-STAT [id number] 19:48:11 Test Item Value Reference Range Interpretation Comments POTASSIUM (BEAKER) (test code = 4.4 meq/L 3.6-5.5 379) GLUCOSE-STAT [id number] 19:48:10 Test Item Value Reference Range Interpretation Comments GLUCOSE RANDOM (BEAKER) (test code 163 mg/dL 70-110 H = 652) SODIUM NA-STAT [id number] 19:48:10 Test Item Value Reference Range Interpretation Comments SODIUM (BEAKER) (test code = 381) 138 meq/L 136-145 LACTIC ACID, [id number] 17:37:08 Test Item Value Reference Range Interpretation Comments LACTATE BLOOD ARTERIAL (2) 4.2 mmol/L 0.5-2.0 HH (BEAKER) (test code = 2874) Fiber Worker ID - BSHGB/HCT (H&H) - STAT [id number] 17:21:22 Test Item Value Reference Range Interpretation Comments HEMOGLOBIN (BEAKER) (test code = 9.7 GM/DL 13.0-16.8 L 410) HEMATOCRIT (BEAKER) (test code = 29.0 % 40.0-50.0 L 411) BLOOD GAS, [id number] 17:21:21 Test Item Value Reference Range Interpretation [...] (test code = 1819) 60.0 SODIUM NA-STAT [id number] 17:21:08 Test Item Value Reference Range Interpretation Comments SODIUM (BEAKER) (test code = 381) 137 meq/L 136-145 POTASSIUM-STAT [id number] 17:21:08 Test Item Value Reference Range Interpretation Comments POTASSIUM (BEAKER) (test code = 4.1 meq/L 3.6-5.5 379) GLUCOSE-STAT [id number] 17:21:07 Test Item Value Reference Range Interpretation Comments GLUCOSE RANDOM (BEAKER) (test code 149 mg/dL 70-110 H = 652) RAD, CHEST, 1 VIEW, NON [id number] 16:10:00Reason for exam:->post opShould this be performed at the bedside?->Yes [facility] 1950 Sex: MFINAL REPORT RAD, CHEST, 1 VIEW, NON DEPT TECHNIQUE: Frontal view(s) of the chest.INDICATION: post op COMPARISON: Chest radiograph 08/15/2022 FINDINGS/IMPRESSION: Lines/Tubes: Right IJ [place] catheter is seen with tip at the pulmonary outflow tract. Endotracheal tube is seen. Enteric tube is present with tip below the field of view. Lungs/pleura: Bibasilar atelectasis. Small bilateral pleural effusions. No pneumothorax. Heart and Mediastinum: Unchanged. Soft Tissues and Bones: Unchanged. Signed: Mohsen Gray Verified Date/Time: 08/24/2022 16:10:03 COMPREHENSIVE METABOLIC [id number] 15:18:28 Test Item Value Reference Range Interpretation [...] not appl icable for dialysis patien ts Fiber Worker ID - [id number] 15:18:27 Test Item Value Reference Range Interpretation Comments MAGNESIUM (BEAKER) 1.6 mg/dL 1.6-2.6 Specimen slightly (test code = 627) hemolyzed Fiber Worker ID - [id number] 15:18:27 Test Item Value Reference Range Interpretation Comments PHOSPHORUS (BEAKER) 4.6 mg/dL 2.3-4.7 Specimen slightly (test code = 604) hemolyzed Fiber Worker ID - [id number] 15:11:03 Test Item Value Reference Range Interpretation [...] is 2.5-3.5 for patients with mechanical heart valves.[id number] 15:10:44 Test Item Value Reference Range Interpretation Comments FIBRINOGEN LEVEL (BEAKER) (test 287 mg/dl 225-434 code = 658) PROTHROMBIN [id number] 15:10:22 Test Item Value Reference Range Interpretation [...] mechanical heart valves.CBC W/PLT COUNT & AUTO [id number] 15:05:20 Test Item Value Reference Range Interpretation [...] (BEAKER) (test code = 413) LACTIC ACID, [id number] 15:05:19 Test Item Value Reference Range Interpretation Comments LACTATE BLOOD 2.3 mmol/L 0.5-2.0 H Specimen sligh tly ARTERIAL (2) (BEAKER) hemoly zed (test code = 2874) Fiber Worker ID - BSHGB/HCT (H&H) - STAT [id number] 14:48:09 Test Item Value Reference Range Interpretation Comments HEMOGLOBIN (BEAKER) (test code = 10.8 GM/DL 13.0-16.8 L 410) HEMATOCRIT (BEAKER) (test code = 32.0 % 40.0-50.0 L 411) BLOOD GAS, [id number] 14:48:08 Test Item Value Reference Range Interpretation [...] (BEAKER) (test code = 1819) 50.0 CALCIUM, [id number] 14:47:51 Test Item Value Reference Range Interpretation Comments CALCIUM IONIZED (BEAKER) (test 1.24 mmol/L 1.12-1.27 code = 698) PH, BLOOD (BEAKER) (test code = 7.38 1810) OXYGEN SATURATION, [id number] 14:47:35 Test Item Value Reference Range Interpretation Comments O2 SATURATION (MEASURED) (BEAKER) 72.2 % (test code = 1455) SODIUM NA-STAT [id number] 14:47:14 Test Item Value Reference Range Interpretation Comments SODIUM (BEAKER) (test code = 381) 138 meq/L 136-145 POTASSIUM-STAT [id number] 14:47:14 Test Item Value Reference Range Interpretation Comments POTASSIUM (BEAKER) (test code = 4.4 meq/L 3.6-5.5 379) GLUCOSE-STAT [id number] 14:47:13 Test Item Value Reference Range Interpretation Comments GLUCOSE RANDOM (BEAKER) (test code 204 mg/dL 70-110 H = 652) HGB/HCT (H&H) - STAT [id number] 13:49:15 Test Item Value Reference Range Interpretation Comments HEMOGLOBIN (BEAKER) (test code = 11.7 GM/DL 13.0-16.8 L 410) HEMATOCRIT (BEAKER) (test code = 34.0 % 40.0-50.0 L 411) CALCIUM, [id number] 13:49:14 Test Item Value Reference Range Interpretation Comments CALCIUM IONIZED (BEAKER) (test 1.11 mmol/L 1.12-1.27 L code = 698) PH, BLOOD (BEAKER) (test code = 7.28 1810) BLOOD GAS, [id number] 13:49:14 Test Item Value Reference Range Interpretation [...] (BEAKER) (test code = 1819) 100.0 POTASSIUM-STAT [id number] 13:49:02 Test Item Value Reference Range Interpretation Comments POTASSIUM (BEAKER) (test code = 4.4 meq/L 3.6-5.5 379) SODIUM NA-STAT [id number] 13:49:01 Test Item Value Reference Range Interpretation Comments SODIUM (BEAKER) (test code = 381) 137 meq/L 136-145 GLUCOSE-STAT [id number] 13:48:56 Test Item Value Reference Range Interpretation Comments GLUCOSE RANDOM (BEAKER) (test code 237 mg/dL 70-110 H = 652) [id number] 13:28:17 Test Item Value Reference Range Interpretation Comments PTT (test code = 24940-0) 35.4 See_Comment [ Automated message] The system [employer] generated this result transmitted ref erence range: 22.5 - 3 6.0 seconds. The re ference range was not u sed to interpret this result as normal/abnor mal. Lab Interpretation (test Normal code = 08252-9) [id number] 13:28:17 Test Item Value Reference Range Interpretation Comments PARTIAL THROMBOPLASTIN TIME 35.4 seconds 22.5-36.0 (BEAKER) (test code = 760) [id number] 13:27:53 Test Item Value Reference Range Interpretation Comments FIBRINOGEN LEVEL (BEAKER) (test 336 mg/dl 225-434 code = 658) PROTHROMBIN [id number] 13:27:36 Test Item Value Reference Range Interpretation Comments PROTIME (BEAKER) (test code = 24.7 seconds 11.9-14.2 H 759) INR (BEAKER) (test code = 370) 2.41 <=5.90 RECOMMENDED COUMADIN/WARFARIN INR THERAPY RANGESSTANDARD DOSE: 2.0 - 3.0 Includes: PROPHYLAXIS for venous thrombosis, systemic embolization; TREATMENT for venous thrombosis and/or pulmonary embolus.HIGH RISK: Target INR is 2.5-3.5 for patients with mechanical heart valves.Platelet [id number] 13:24:21 Test Item Value Reference Range Interpretation Comments Platelets (test code 139 See_Comment L OR samp le = 777-3) [Automated message] The system which generated this result transmit ronaldo reference range : 150 - 450 K/CU MM. The reference range was not u sed to interpret th is result as normal/abnormal . SWEETIE (test code = SWEETIE) Fiber Worker ID - [id number] Lab Interpretation Abnormal (test code = 61377-7) [facility] [id number] 13:24:21 Test Item Value Reference Range Interpretation Comments PLATELET COUNT (BEAKER) (test 139 K/CU MM 150-450 L OR sample code = 756) Fiber Worker ID - [id number] GAS, [id number] 13:06:54 Test Item Value Reference Range Interpretation [...] = 1819) 100.0 HGB/HCT (H&H) - STAT [id number] 13:06:54 Test Item Value Reference Range Interpretation Comments HEMOGLOBIN (BEAKER) (test code = 8.7 GM/DL 13.0-16.8 L 410) HEMATOCRIT (BEAKER) (test code = 26.0 % 40.0-50.0 L 411) CALCIUM, [id number] 13:06:48 Test Item Value Reference Range Interpretation Comments CALCIUM IONIZED (BEAKER) (test 1.27 mmol/L 1.12-1.27 code = 698) PH, BLOOD (BEAKER) (test code = 7.33 1810) GLUCOSE-STAT [id number] 13:06:31 Test Item Value Reference Range Interpretation Comments GLUCOSE RANDOM (BEAKER) (test code 258 mg/dL 70-110 H = 652) POTASSIUM-STAT [id number] 13:06:31 Test Item Value Reference Range Interpretation Comments POTASSIUM (BEAKER) (test code = 5.0 meq/L 3.6-5.5 379) SODIUM NA-STAT [id number] 13:06:30 Test Item Value Reference Range Interpretation Comments SODIUM (BEAKER) (test code = 381) 135 meq/L 136-145 L POTASSIUM-STAT [id number] 12:30:24 Test Item Value Reference Range Interpretation Comments POTASSIUM (BEAKER) (test code = 6.2 meq/L 3.6-5.5 HH 379) BLOOD GAS, [id number] 12:29:36 Test Item Value Reference Range Interpretation [...] = 1819) 80.0 HGB/HCT (H&H) - STAT [id number] 12:29:36 Test Item Value Reference Range Interpretation Comments HEMOGLOBIN (BEAKER) (test code = 8.8 GM/DL 13.0-16.8 L 410) HEMATOCRIT (BEAKER) (test code = 26.0 % 40.0-50.0 L 411) SODIUM NA-STAT [id number] 12:29:18 Test Item Value Reference Range Interpretation Comments SODIUM (BEAKER) (test code = 381) 135 meq/L 136-145 L GLUCOSE-STAT [id number] 12:29:17 Test Item Value Reference Range Interpretation Comments GLUCOSE RANDOM (BEAKER) (test code 253 mg/dL 70-110 H = 652) POTASSIUM-STAT [id number] 12:00:04 Test Item Value Reference Range Interpretation Comments POTASSIUM (BEAKER) (test code = 6.5 meq/L 3.6-5.5 HH 379) HGB/HCT (H&H) - STAT [id number] 11:58:32 Test Item Value Reference Range Interpretation Comments HEMOGLOBIN (BEAKER) (test code = 9.0 GM/DL 13.0-16.8 L 410) HEMATOCRIT (BEAKER) (test code = 26.0 % 40.0-50.0 L 411) BLOOD GAS, [id number] 11:58:31 Test Item Value Reference Range Interpretation [...] (test code = 1819) 70.0 SODIUM NA-STAT [id number] 11:58:31 Test Item Value Reference Range Interpretation Comments SODIUM (BEAKER) (test code = 381) 132 meq/L 136-145 L GLUCOSE-STAT [id number] 11:58:17 Test Item Value Reference Range Interpretation Comments GLUCOSE RANDOM (BEAKER) (test code 261 mg/dL 70-110 H = 652) SODIUM NA-STAT [id number] 11:22:06 Test Item Value Reference Range Interpretation Comments SODIUM (BEAKER) (test code = 381) 129 meq/L 136-145 L HGB/HCT (H&H) - STAT [id number] 11:22:06 Test Item Value Reference Range Interpretation Comments HEMOGLOBIN (BEAKER) (test code = 9.0 GM/DL 13.0-16.8 L 410) HEMATOCRIT (BEAKER) (test code = 26.0 % 40.0-50.0 L 411) BLOOD GAS, [id number] 11:22:05 Test Item Value Reference Range Interpretation [...] (BEAKER) (test code = 1819) 70.0 POTASSIUM-STAT [id number] 11:22:00 Test Item Value Reference Range Interpretation Comments POTASSIUM (BEAKER) (test code = 6.2 meq/L 3.6-5.5 HH 379) GLUCOSE-STAT [id number] 11:21:39 Test Item Value Reference Range Interpretation Comments GLUCOSE RANDOM (BEAKER) (test code 252 mg/dL 70-110 H = 652) BLOOD GAS, [id number] 10:49:31 Test Item Value Reference Range Interpretation [...] (test code = 1819) 80.0 SODIUM NA-STAT [id number] 10:49:31 Test Item Value Reference Range Interpretation Comments SODIUM (BEAKER) (test code = 381) 129 meq/L 136-145 L HGB/HCT (H&H) - STAT [id number] 10:49:31 Test Item Value Reference Range Interpretation Comments HEMOGLOBIN (BEAKER) (test code = 9.3 GM/DL 13.0-16.8 L 410) HEMATOCRIT (BEAKER) (test code = 27.0 % 40.0-50.0 L 411) GLUCOSE-STAT [id number] 10:49:11 Test Item Value Reference Range Interpretation Comments GLUCOSE RANDOM (BEAKER) (test code 178 mg/dL 70-110 H = 652) POTASSIUM-STAT [id number] 10:49:11 Test Item Value Reference Range Interpretation Comments POTASSIUM (BEAKER) (test code = 5.4 meq/L 3.6-5.5 379) HGB/HCT (H&H) - STAT [id number] 08:09:53 Test Item Value Reference Range Interpretation Comments HEMOGLOBIN (BEAKER) (test code = 12.5 GM/DL 13.0-16.8 L 410) HEMATOCRIT (BEAKER) (test code = 37.0 % 40.0-50.0 L 411) BLOOD GAS, [id number] 08:09:52 Test Item Value Reference Range Interpretation [...] (BEAKER) (test code = 1819) 100.0 CALCIUM, [id number] 08:09:41 Test Item Value Reference Range Interpretation Comments CALCIUM IONIZED (BEAKER) (test 1.13 mmol/L 1.12-1.27 code = 698) PH, BLOOD (BEAKER) (test code = 7.49 1810) SODIUM NA-STAT [id number] 08:09:24 Test Item Value Reference Range Interpretation Comments SODIUM (BEAKER) (test code = 381) 135 meq/L 136-145 L POTASSIUM-STAT [id number] 08:09:24 Test Item Value Reference Range Interpretation Comments POTASSIUM (BEAKER) (test code = 4.7 meq/L 3.6-5.5 379) GLUCOSE-STAT [id number] 08:09:23 Test Item Value Reference Range Interpretation Comments GLUCOSE RANDOM (BEAKER) (test code 135 mg/dL 70-110 H = 652) BASIC METABOLIC [id number] 04:54:21 Test Item Value Reference Range Interpretation [...] not appl icable for dialysis patien kelvin Fiber Worker ID - [id number] 04:42:34 Test Item Value Reference Range Interpretation [...] 0-0 (BEAKER) (test code = 413) POCT-GLUCOSE [id number] 21:31:04 Test Item Value Reference Range Interpretation Comments POC-GLUCOSE METER 159 mg/dL 70-110 H : TESTED A T [facility] 6720 (BEAKER) (test code = BHAVNA GONZALES [place], 1538) 00[address]: Fiber Worker/Techni maikol ID = [id number] for Br Mendel jean baptistea POCT-GLUCOSE [id number] 17:31:14 Test Item Value Reference Range Interpretation Comments POC-GLUCOSE METER 119 mg/dL 70-110 H : TESTED A T [facility] 6720 (BEAKER) (test code = [facility], 1538) 36620: Fiber Worker/Techni maikol ID = [id number] for OR ELIAS NEGRO POCT-GLUCOSE [id number] 12:16:24 Test Item Value Reference Range Interpretation Comments POC-GLUCOSE METER 142 mg/dL 70-110 H : TESTED A T [facility] 6720 (BEAKER) (test code = [facility], 1538) 61830: Fiber Worker/Techni maikol ID = [id number] for OR ELIAS NEGRO POCT-GLUCOSE [id number] 08:02:24 Test Item Value Reference Range Interpretation Comments POC-GLUCOSE METER 147 mg/dL 70-110 H : TESTED A T [facility] 6720 (BEAKER) (test code = [facility], 1538) 755[address]: Fiber Worker/Techni maikol ID = [id number] for OR ELIAS NEGRO BASIC METABOLIC [id number] 06:24:24 Test Item Value Reference Range Interpretation [...] not appl icable for dialysis patien ts Fiber Worker ID - [id number] 06:13:21 Test Item Value Reference Range Interpretation Comments PARTIAL THROMBOPLASTIN TIME 62.0 seconds 22.5-36.0 H (BEAKER) (test code = 760) [id number] 06:12:21 Test Item Value Reference Range Interpretation Comments PARTIAL THROMBOPLASTIN TIME 67.6 seconds 22.5-36.0 H (BEAKER) (test code = 760) POCT-GLUCOSE [id number] 22:07:45 Test Item Value Reference Range Interpretation Comments POC-GLUCOSE METER 143 mg/dL 70-110 H : TESTED A T [facility] 6720 (BEAKER) (test code = [facility] [employer] [facility], 1538) 07492: Fiber Worker/Techni maikol ID = [id number] for Br Jose jean baptiste POCT-GLUCOSE [id number] 17:18:02 Test Item Value Reference Range Interpretation Comments POC-GLUCOSE METER 162 mg/dL 70-110 H : TESTED A T [facility] 6720 (BEAKER) (test code = [facility] [employer] [facility], 1538) 16226: Fiber Worker/Techni maikol ID = [id number] for ANDREI HN, ADI POCT-GLUCOSE [id number] 12:05:28 Test Item Value Reference Range Interpretation Comments POC-GLUCOSE METER 155 mg/dL 70-110 H : TESTED A T [facility] 6720 (BEAKER) (test code = [facility] [employer] [facility], 1538) 44046: Fiber Worker/Techni amikol ID = [id number] for ANDREI HN, ADI POCT-GLUCOSE [id number] 07:40:55 Test Item Value Reference Range Interpretation Comments POC-GLUCOSE METER 144 mg/dL 70-110 H : TESTED A T [facility] 6720 (BEAKER) (test code = [facility] [employer] [facility], 1538) 72336: Fiber Worker/Techni maikol ID = [id number] for ADI CHACON BASIC METABOLIC [id number] 02:07:39 Test Item Value Reference Range Interpretation [...] not appl icable for dialysis patien ts Fiber Worker ID - [id number] 01:54:03 Test Item Value Reference Range Interpretation Comments PARTIAL THROMBOPLASTIN TIME 66.5 seconds 22.5-36.0 H (BEAKER) (test code = 760) POCT-GLUCOSE [id number] 20:58:51 Test Item Value Reference Range Interpretation Comments POC-GLUCOSE METER 130 mg/dL 70-110 H : TESTED A T [facility] (BEAKER) (test code = BHAVNA GONZALES [place], 1538) 672[address]: Fiber Worker/Techni maikol ID = [id number] for FOREST BERMAN [id number] 18:59:33 Test Item Value Reference Range Interpretation Comments PARTIAL THROMBOPLASTIN TIME 64.1 seconds 22.5-36.0 H (BEAKER) (test code = 760) POCT-GLUCOSE [id number] 17:30:38 Test Item Value Reference Range Interpretation Comments POC-GLUCOSE METER 154 mg/dL 70-110 H : TESTED A T [facility] 6720 (BEAKER) (test code = [facility], 1538) 00221: Fiber Worker/Techni maikol ID = [id number] for ADI CHACON POCT-GLUCOSE [id number] 17:00:05 Test Item Value Reference Range Interpretation Comments POC-GLUCOSE METER 190 mg/dL 70-110 H : TESTED A T [facility] 6720 (BEAKER) (test code = [facility], 1538) 84915: Fiber Worker/Techni maikol ID = [id number] for Yolanda Marx [id number] 11:30:12 Test Item Value Reference Range Interpretation Comments PARTIAL THROMBOPLASTIN TIME 103.9 seconds 22.5-36.0 H (BEAKER) (test code = 760) POCT-GLUCOSE [id number] 07:32:04 Test Item Value Reference Range Interpretation Comments POC-GLUCOSE METER 131 mg/dL 70-110 H : TESTED A T [facility] 6720 (BEAKER) (test code = [facility], 1538) 29613: Fiber Worker/Techni maikol ID = [id number] for Yolanda Marx [id number] 05:00:02 Test Item Value Reference Range Interpretation Comments PARTIAL THROMBOPLASTIN TIME 108.5 seconds 22.5-36.0 H (BEAKER) (test code = 760) BASIC METABOLIC [id number] 04:54:16 Test Item Value Reference Range Interpretation [...] not appl icable for dialysis patien ts Fiber Worker ID - [id number] 21:58:05 Test Item Value Reference Range Interpretation Comments PARTIAL THROMBOPLASTIN TIME 87.8 seconds 22.5-36.0 H (BEAKER) (test code = 760) POCT-GLUCOSE [id number] 21:33:05 Test Item Value Reference Range Interpretation Comments POC-GLUCOSE METER 140 mg/dL 70-110 H : TESTED A T [facility] 6720 (BEAKER) (test code = [facility], 153) 35041: Fiber Worker/Techni maikol ID = [id number] for FOREST BERMAN POCT-GLUCOSE [id number] 17:23:03 Test Item Value Reference Range Interpretation Comments POC-GLUCOSE METER 121 mg/dL 70-110 H : TESTED A T [facility] 6720 (BEAKER) (test code = [facility], 153) 24905: Fiber Worker/Techni maikol ID = [id number] for MICKI BAGLEY BASIC METABOLIC [id number] 15:42:26 Test Item Value Reference Range Interpretation [...] decreased 60-89 G3a Mildl y to moderately 45- 59 G3b Moderately to s everely 30-44 G4 Severl y decreased 15-29 G5 Kidney failure <15Reported eGF R is based on the CKD-EPI 2020 equation that d oes not use a race coefficientEsti mated GFR is not as accur ate as Creatinine Jessica phil in predicting glom erular filtration rate . Estimated GFR is not appl icable for dialysis patien ts Fiber Worker ID - [id number] 15:01:06 Test Item Value Reference Range Interpretation Comments PARTIAL THROMBOPLASTIN TIME 34.4 seconds 22.5-36.0 (BEAKER) (test code = 760) [id number] 13:42:30 Test Item Value Reference Range Interpretation Comments PARTIAL THROMBOPLASTIN TIME > seconds 22.5-36.0 HH (BEAKER) (test code = 760) POCT-GLUCOSE [id number] 12:12:37 Test Item Value Reference Range Interpretation Comments POC-GLUCOSE METER 158 mg/dL 70-110 H : TESTED A T [facility] 6720 (BEAKER) (test [facility] = [facility], 1538) 05217: Fiber Worker/Techni maikol ID = [id number] for MICKI BAGLEY POCT-GLUCOSE [id number] 08:10:28 Test Item Value Reference Range Interpretation Comments POC-GLUCOSE METER 117 mg/dL 70-110 H : TESTED A T [facility] 6720 (BEAKER) (test code = BHAVNA Gutiérrez [facility], 1538) 47320: Fiber Worker/Techni maikol ID = [id number] for MICKI BAGLEY [id number] 04:55:48 Test Item Value Reference Range Interpretation Comments PARTIAL THROMBOPLASTIN TIME 61.9 seconds 22.5-36.0 H (BEAKER) (test code = 760) POCT-GLUCOSE [id number] 21:10:34 Test Item Value Reference Range Interpretation Comments POC-GLUCOSE METER 132 mg/dL 70-110 H : TESTED A T [facility] 6720 (BEAKER) (test code = [facility], 1538) [id number]: Fiber Worker/Techni maikol ID = [id number] for FOREST BERMAN [id number] 17:36:22 Test Item Value Reference Range Interpretation Comments PARTIAL THROMBOPLASTIN TIME 66.6 seconds 22.5-36.0 H (BEAKER) (test code = 760) POCT-GLUCOSE [id number] 17:21:11 Test Item Value Reference Range Interpretation Comments POC-GLUCOSE METER 178 mg/dL 70-110 H : TESTED A T [facility] 6720 (BEAKER) (test code = [facility], 153) [id number]: Fiber Worker/Techni maikol ID = [id number] for MICIK BAGLEY Carotid doppler [id number] 13:47:49Ejection FractionSLEH ECHO HEARTLAB MKCKESSON [facility] [id number] 13:47:29Ejection FractionSLEH ECHO HEARTLAB MKCKESSON [facility] [id number] 12:43:32 Test Item Value Reference Range Interpretation Comments POC-GLUCOSE METER 184 mg/dL 70-110 H : TESTED A T [facility] 6720 (BEAKER) (test code = [facility], 1538) [id number]: Fiber Worker/Techni maikol ID = [id number] for MICKI BAGLEY T SPOT [id number] 10:16:57 Test Item Value Reference Range Interpretation [...] = 1687) SCAN RESULT (test code = 1560333) [id number] 09:50:54 Test Item Value Reference Range Interpretation Comments PARTIAL THROMBOPLASTIN TIME 67.3 seconds 22.5-36.0 H (BEAKER) (test code = 760) POCT-GLUCOSE [id number] 07:33:54 Test Item Value Reference Range Interpretation Comments POC-GLUCOSE METER 135 mg/dL 70-110 H : TESTED A T [facility] 6720 (BEAKER) (test code = BHAVNA G[place]AL[place], 1538) [address]: Fiber Worker/Techni maikol ID = [id number] for MICKI BAGLEY [id number] 02:51:47 Test Item Value Reference Range Interpretation Comments PARTIAL THROMBOPLASTIN TIME 56.8 seconds 22.5-36.0 H (BEAKER) (test code = 760) COMPREHENSIVE METABOLIC [id number] 02:33:27 Test Item Value Reference Range Interpretation [...] not appl icable for dialysis patien ts Fiber Worker ID - ADMINPOCT-GLUCOSE [id number] 21:20:07 Test Item Value Reference Range Interpretation Comments POC-GLUCOSE METER 202 mg/dL 70-110 H : TESTED A T [facility] 6720 ([facility]) (test code = [facility] [place] Brock [facility], 1538) 10695: Fiber Worker/Techni maikol ID = [id number] for FI SKYE, FOREST [id number] 16:22:48 Test Item Value Reference Range Interpretation Comments ACTIVATED CLOTTING TIME 149 sec : 74 -137 seconds, (BEAKER) (test code = Baseli ne: TESTED AT 441) [facility] 6720 [facility], 770 30: Fiber Worker/Techni maikol ID = [id number] for Co Aleida andersena [id number] 14:07:12 Test Item Value Reference Range Interpretation Comments ACTIVATED CLOTTING TIME 191 sec : 74 -137 seconds, (BEAKER) (test code = Baseli ne: TESTED AT 441) [facility] 6720 [facility], 770 30: Fiber Worker/Techni maikol ID = [id number] for HUSAM HEWITT COMPREHENSIVE METABOLIC [id number] 10:49:46 Test Item Value Reference Range Interpretation Comments TOTAL PROTEIN 6.6 gm/dL 6.0-8.3 ([facility]) (test code = 770) ALBUMIN ([facility]) 3.4 g/dL 3.5-5.0 L (test code = [...] decreased 60-89 G3a Mildl y to moderately 45- 59 G3b Moderately to s everely 30-44 G4 Severl y decreased 15-29 G5 Kidney failure <15Reported eGF R is based on the CKD-EPI 2021 equation that d oes not use a race coefficientEsti mated GFR is not as accur ate as Creatinine Jessica phil in predicting glom erular filtration rate . Estimated GFR is not appl icable for dialysis patien ts POCT-GLUCOSE [id number] 07:48:02 Test Item Value Reference Range Interpretation Comments POC-GLUCOSE METER 142 mg/dL 70-110 H : TESTED A T [facility] 6720 (BEAKER) (test code = BHAVNA [place], 1538) 318[address]: Fiber Worker/Techni maikol ID = [id number] for ADI CHACON [id number] 06:15:20 Test Item Value Reference Range Interpretation Comments PARTIAL THROMBOPLASTIN TIME 100.3 seconds 22.5-36.0 H (BEAKER) (test code = 760) [id number] 22:49:40 Test Item Value Reference Range Interpretation Comments PARTIAL THROMBOPLASTIN TIME 96.9 seconds 22.5-36.0 H (BEAKER) (test code = 760) POCT-GLUCOSE [id number] 21:17:49 Test Item Value Reference Range Interpretation Comments POC-GLUCOSE METER 190 mg/dL 70-110 H : TESTED A T [facility] 6720 (BEAKER) (test code = BHAVNA GONZAL[place], 1538) 225[address]: Fiber Worker/Techni maikol ID = [id number] for Br Jose jean baptiste Drug Test, General Toxicology, [id number] 19:18:16 Test Item Value Reference Interpretation Comments Range Acetone([facility]) 6 mg/dL H (test code = 3053) Methanol([facility]) None Detected (test code = 3054) Drug Test,Genrl see note The followin g compounds were Tox,U (test code detected: C affeine = 8757738) Dextrorphan Zaki icylic Acid For a list of c ompounds and limits of detec tion go to:http://educa tion.[employer].Domainindex.com/fa q/DKA235 ISOPROPANOL (test None Detected code = 2168224) ETHANOL (test None Detected Volatile Isaacs it of code = 9731670) Detection: 5 mg/dL This test was developed a nd its analytical performancechar acteristics have been deter mined by [employer] [facility] [place]. It hasnot been asael ared or approved by the U.S. Food and DrugAdminis tration. This assay has been validated pursuantto the CLIA regulations and is used for clinicalpurpose s. SWEETIE (test code = Performing SWEETIE) Lab [facility]/[place] [address] [facility] [place] [address] Rylee Cazares MD, PhD Lab Abnormal Interpretation (test code = 48269-2) [facility] [id number] 17:13:10 Test Item Value Reference Range Interpretation Comments POC-GLUCOSE METER 178 mg/dL 70-110 H : TESTED A T [facility] 6720 (BEAKER) (test code = [facility] [place] Brock [facility], 1538) 84453: Fiber Worker/Techni maikol ID = [id number] for ADI CHACON [id number] 16:13:17 Test Item Value Reference Range Interpretation Comments PARTIAL THROMBOPLASTIN TIME 58.1 seconds 22.5-36.0 H (BEAKER) (test code = 760) 2D Echo W/Doppler(CW/PW/Color)2022-08-17 15:00:32Ejection [facility] ECHO HEARTLAB MKCKESSON [facility] [id number] 12:05:53 Test Item Value Reference Range Interpretation Comments POC-GLUCOSE METER 174 mg/dL 70-110 H : TESTED A T [facility] 6720 (BEAKER) (test code = [facility] [place] Brock [facility], 1538) 40390: Fiber Worker/Techni maikol ID = [id number] for ADI CHACON [id number] 08:24:49 Test Item Value Reference Range Interpretation Comments PARTIAL THROMBOPLASTIN TIME 69.9 seconds 22.5-36.0 H (BEAKER) (test code = 760) POCT-GLUCOSE [id number] 07:53:31 Test Item Value Reference Range Interpretation Comments POC-GLUCOSE METER 122 mg/dL 70-110 H : TESTED A T [facility] 6720 (BEAKER) (test code = [facility], 1538) 45572: Fiber Worker/Techni maikol ID = [id number] for ADI CHACON (CELLAVISION MANUAL DIFF)2022-08-17 07:06:56 [...] CONCENTRATION Adequate (CELLAVISION)(BEAKER) (test code = 3438) Fiber Worker ID - Tiesha Irvin comments: Slide comments:CBC W/PLT COUNT & AUTO [id number] 07:06:55 Test Item Value Reference Range Interpretation [...] (BEAKER) (test code = 413) COMPREHENSIVE METABOLIC [id number] 06:04:37 Test Item Value Reference Range Interpretation [...] not appl icable for dialysis patien ts Fiber Worker ID - GENI [id number] 05:52:05 Test Item Value Reference Range Interpretation Comments PARTIAL THROMBOPLASTIN TIME 110.4 seconds 22.5-36.0 H (BEAKER) (test code = 760) BLOOD [id number] 02:00:26 Test Item Value Reference Range Interpretation Comments CULTURE (BEAKER) (test No growth in 5 days code = 1095) The specimen volume collected for this blood culture was below the optimum (10 mL per bottle or 20 mL total). Use of lower volumes may adversely affect recovery and/or detection times of some organisms.BLOOD [id number] 00:01:31 Test Item Value Reference Range Interpretation Comments CULTURE (BEAKER) (test No growth in 5 days code = 1095) POCT-GLUCOSE [id number] 20:38:56 Test Item Value Reference Range Interpretation Comments POC-GLUCOSE METER 170 mg/dL 70-110 H : TESTED A T [facility] 6720 (BEAKER) (test code = [facility] [place] [employer] [facility], 153) 08015: Fiber Worker/Techni maikol ID = [id number] for Br Mendel jean baptistea POCT-GLUCOSE [id number] 17:24:15 Test Item Value Reference Range Interpretation Comments POC-GLUCOSE METER 135 mg/dL 70-110 H : TESTED A T [facility] 6720 (BEAKER) (test code = [facility] [place] [employer] [facility], 1538) 90309: Fiber Worker/Techni maikol ID = [id number] for MICKI BAGLEY POCT-GLUCOSE [id number] 12:37:08 Test Item Value Reference Range Interpretation Comments POC-GLUCOSE METER 181 mg/dL 70-110 H : TESTED A T [facility] 6720 (BEAKER) (test code = [facility], 1538) 12708: Fiber Worker/Techni maikol ID = [id number] for Co rtez, [place] [id number] 12:36:40 Test Item Value Reference Range Interpretation Comments PARTIAL THROMBOPLASTIN TIME 76.9 seconds 22.5-36.0 H (BEAKER) (test code = 760) POCT-GLUCOSE [id number] 07:57:49 Test Item Value Reference Range Interpretation Comments POC-GLUCOSE METER 142 mg/dL 70-110 H : TESTED A T [facility] 6720 (BEAKER) (test code = [facility], 1538) 11612: Fiber Worker/Techni maikol ID = [id number] for Co rtez, Jeannie (CELLAVISION MANUAL DIFF)2022-08-16 [...] CONCENTRATION Adequate (CELLAVISION)(BEAKER) (test code = 3438) Fiber Worker ID - Makenzie OverholtUser comments: Slide comments:CBC W/PLT COUNT & AUTO [id number] 07:39:22 Test Item Value Reference Range Interpretation [...] (BEAKER) (test code = 413) HEPATIC FUNCTION [id number] 05:15:06 Test Item Value Reference Range Interpretation [...] (test code = 55 U/L 6-55 347) Fiber Worker ID - GENI GBASIC METABOLIC [id number] 05:15:05 Test Item Value Reference Range Interpretation [...] not appl icable for dialysis patien ts Fiber Worker ID - GENI [id number] 05:15:05 Test Item Value Reference Range Interpretation Comments MAGNESIUM (BEAKER) (test code = 2.0 mg/dL 1.6-2.6 627) Fiber Worker ID - GENI [id number] 05:15:05 Test Item Value Reference Range Interpretation Comments PHOSPHORUS (BEAKER) (test code = 3.3 mg/dL 2.3-4.7 604) Fiber Worker ID - GENI [id number] 05:03:19 Test Item Value Reference Range Interpretation Comments PARTIAL THROMBOPLASTIN TIME 83.9 seconds 22.5-36.0 H (BEAKER) (test code = 760) CALCIUM, [id number] 04:44:18 Test Item Value Reference Range Interpretation Comments CALCIUM IONIZED (BEAKER) (test 1.05 mmol/L 1.12-1.27 L code = 698) PH, BLOOD (BEAKER) (test code = 7.49 1810) [id number] 21:39:14 Test Item Value Reference Range Interpretation Comments PARTIAL THROMBOPLASTIN TIME 46.8 seconds 22.5-36.0 H (BEAKER) (test code = 760) POCT-GLUCOSE [id number] 21:31:46 Test Item Value Reference Range Interpretation Comments POC-GLUCOSE METER 161 mg/dL 70-110 H : TESTED A T [facility] 6720 (BEAKER) (test code = [facility] [place] [employer] [facility], 153) 51876: Fiber Worker/Techni maikol ID = [id number] for Br Jose jean baptiste [id number] 19:48:49 Test Item Value Reference Range Interpretation Comments PARTIAL THROMBOPLASTIN TIME 120.5 seconds 22.5-36.0 H (BEAKER) (test code = 760) POCT-GLUCOSE [id number] 17:35:39 Test Item Value Reference Range Interpretation Comments POC-GLUCOSE METER 128 mg/dL 70-110 H : TESTED A T [facility] 6720 (BEAKER) (test code = [facility] [place] [employer] [facility], 153) 04515: Fiber Worker/Techni maikol ID = [id number] for Co Jeannie paulson BASIC METABOLIC [id number] 13:54:06 Test Item Value Reference Range Interpretation [...] not appl icable for dialysis patien ts Fiber Worker ID - [id number] 13:51:02 Test Item Value Reference Range Interpretation Comments PARTIAL THROMBOPLASTIN TIME 84.8 seconds 22.5-36.0 H (BEAKER) (test code = 760) BLOOD GAS, [id number] 13:33:19 Test Item Value Reference Range Interpretation [...] (BEAKER) (test code = 1819) 21.0 POCT-GLUCOSE [id number] 12:19:39 Test Item Value Reference Range Interpretation Comments POC-GLUCOSE METER 229 mg/dL 70-110 H : TESTED A T [facility] 6720 (BEAKER) (test code = BHAVNA [place], 1538) 35643: Fiber Worker/Techni maikol ID = [id number] for Co Jeannie paulson RAD, CHEST, 1 VIEW, NON [id number] 08:02:00Reason for exam:->pnaShould this be performed at the bedside?->Yes [facility] 1950 Sex: MFINAL [...] mg/dL 70-110 H : TESTED A T [facility] 6720 (BEAKER) (test code = BH[place], 1538) 97416: Fiber Worker/Techni maikol ID = [id number] for Co rtez, Jeannie [id number] 05:30:58 Test Item Value Reference Range Interpretation Comments MAGNESIUM (BEAKER) (test code = 2.1 mg/dL 1.6-2.6 627) Fiber Worker ID - MMHEPATIC FUNCTION [id number] 05:30:58 Test Item Value Reference Range Interpretation [...] code = 71 U/L 6-55 H 347) Fiber Worker ID - MMBASIC METABOLIC [id number] 05:30:57 Test Item Value Reference Range Interpretation [...] mg/dL 8.4-10.2 (test code = 697) EGFR ([facility]) 58 Interpretatio n of eGFR (test code [...] not appl icable for dialysis patien ts Fiber Worker ID - MMB-TYPE NATRIURETIC FACTOR (BNP)2022-08-15 05:02:44 Test Item Value Reference Range Interpretation Comments B-TYPE NATRIURETIC PEPTIDE ([facility]) 674 pg/mL 0-100 H (test code = 700) Fiber Worker ID - MMLACTIC ACID, [id number] 04:49:56 Test Item Value Reference Range Interpretation Comments LACTATE BLOOD VENOUS 2.32 mmol/L 0.50-2.20 H Specime n slightly (2) ([facility]) (test hemolyzed code = 9563) Fiber Worker ID - [id number] 04:45:17 Test Item Value Reference Range Interpretation Comments PARTIAL THROMBOPLASTIN TIME 63.2 seconds 22.5-36.0 H ([facility]) (test code = 760) POCT-GLUCOSE [id number] 20:53:17 Test Item Value Reference Range Interpretation Comments POC-GLUCOSE METER 169 mg/dL 70-110 H : TESTED A T [facility] 6720 ([facility]) (test code = BH[place], 1538) 39560: Fiber Worker/Techni maikol ID = [id number] for Br Jose jean baptiste [id number] 20:31:39 Test Item Value Reference Range Interpretation Comments PARTIAL THROMBOPLASTIN TIME 68.0 seconds 22.5-36.0 H ([facility]) (test code = 760) POCT-GLUCOSE [id number] 17:26:55 Test Item Value Reference Range Interpretation Comments POC-GLUCOSE METER 205 mg/dL 70-110 H : TESTED A T [facility] 6720 (BEAKER) (test code = [facility], 1538) 63373: Fiber Worker/Techni maikol ID = [id number] for MICKI BAGLEY [id number] 15:08:47 Test Item Value Reference Range Interpretation Comments PARTIAL THROMBOPLASTIN TIME 76.8 seconds 22.5-36.0 H (BEAKER) (test code = 760) MRSA [id number] 14:13:20 Test Item Value Reference Range Interpretation Comments Result (test code = 6463-4) No MRSA isolated [facility] CampusMRSA [id number] 14:13:20 Test Item Value Reference Range Interpretation Comments CULTURE (BEAKER) (test code No MRSA isolated = 1095) POCT-GLUCOSE [id number] 12:38:43 Test Item Value Reference Range Interpretation Comments POC-GLUCOSE METER 193 mg/dL 70-110 H : TESTED A T [facility] 6720 (BEAKER) (test code = [facility], 153) 93344: Fiber Worker/Techni maikol ID = [id number] for MICKI BAGLEY Sputum Culture + Gram [id number] 11:12:16 Test Item Value Reference Range Interpretation Comments Result (test code = 3+ Normal respiratory 6463-4) sherlyn present Gram Stain Result 1+ gram positive cocci in (test code = 1123) chains and pairs [facility] + [facility]AM [id number] 11:12:16 Test Item Value Reference Range Interpretation Comments CULTURE (BEAKER) 3+ Normal respiratory (test code = 1095) sherlyn present GRAM STAIN RESULT 1+ WBCs (BEAKER) (test code = 1123) GRAM STAIN RESULT 0-5 epithelial cells (BEAKER) (test code = 10035) GRAM STAIN RESULT 1+ gram positive cocci (BEAKER) (test code = in chains and pairs 75332) POCT-GLUCOSE [id number] 08:07:19 Test Item Value Reference Range Interpretation Comments POC-GLUCOSE METER 171 mg/dL 70-110 H : TESTED A T [facility] 6720 (BEAKER) (test code = [facility], 1538) 24116: Fiber Worker/Techni maikol ID = [id number] for MICKI BAGLEY POCT-GLUCOSE [id number] 07:19:21 Test Item Value Reference Range Interpretation Comments POC-GLUCOSE METER 213 mg/dL 70-110 H : TESTED A T [facility] 6720 (NEO) (test code = BHAV[place], 1538) 51923: Fiber Worker/Techni maikol ID = [id number] for GAEL ALVA RAD, CHEST, 1 VIEW, NON [id number] 07:19:00Reason for exam:->pnaShould this be performed at the bedside?->Yes [facility] 1950 Sex: MFINAL [...] [place] Verified Date/Time: 08/14/2022 07:19:19 Reading Location: [address] Reading Room [id number] 06:50:50 Test Item Value Reference Range Interpretation Comments PARTIAL THROMBOPLASTIN TIME 85.7 seconds 22.5-36.0 H (NEO) (test code = 760) BASIC METABOLIC [id number] 06:43:55 Test Item Value Reference Range Interpretation [...] not appl icable for dialysis patien ts Fiber Worker ID - ADMINHEPATIC FUNCTION [id number] 06:36:29 Test Item Value Reference Range Interpretation [...] code = 81 U/L 6-55 H 347) Fiber Worker ID - ADMINCBC (HEMOGRAM ONLY)2022-08-14 06:15:19 Test [...] WBC 0-0 (BEAKER) (test code = 413) [id number] 00:24:06 Test Item Value Reference Range Interpretation Comments PARTIAL THROMBOPLASTIN TIME 59.4 seconds 22.5-36.0 H (BEAKER) (test code = 760) VANCOMYCIN LEVEL, [id number] 00:19:07 Test Item Value Reference Range Interpretation Comments VANCOMYCIN TROUGH (BEAKER) (test 10.5 ug/mL 10.0-20.0 code = 522) Fiber Worker ID - [id number] 17:30:37 Test Item Value Reference Range Interpretation Comments PARTIAL THROMBOPLASTIN TIME 47.0 seconds 22.5-36.0 H (BEAKER) (test code = 760) U/S, PELVIC, [id number] 17:17:00Reason for exam:->jose guadalupe [facility] : 1950 Sex: [...] MDReport Verified Date/Time: 08/13/2022 17:17:09 U/S, ABDOMINAL, [id number] 17:17:00 Abdomen limited area? Add comment if clarification is needed.->Liver Reason for exam:->transaminitis [facility] : 1950 Sex: MFINAL [...] a solid renal neoplasm. Signed: Kenisha Monteiro Verified Date/Time: 08/13/2022 17:17:09 POCT-GLUCOSE [id number] 11:19:08 Test Item Value Reference Range Interpretation Comments POC-GLUCOSE METER 210 mg/dL 70-110 H : TESTED A T [facility] 6720 ([employer]) (test code = [facility], 1538) 21224: Fiber Worker/Techni maikol ID = [id number] for TIMOTHY LUNDBERG [id number] 09:54:29 Test Item Value Reference Range Interpretation Comments PARTIAL THROMBOPLASTIN TIME 57.7 seconds 22.5-36.0 H (BEAKER) (test code = 760) Transthoracic 2D echo w/ doppler (cw/pw/color)2022-08-13 08:44:16Ejection FractionSLE ECHO HEARTLAB MKCKESSON [facility]PO[facility] [id number] 08:18:50 Test Item Value Reference Range Interpretation Comments POC-GLUCOSE METER 249 mg/dL 70-110 H : TESTED A T [facility] 6720 (BEAKER) (test code = [facility], 1538) 49619: Fiber Worker/Techni maikol ID = [id number] for TIMOTHY LUNDBERG [id number] 04:08:19 Test Item Value Reference Range Interpretation Comments MAGNESIUM (BEAKER) (test code = 2.1 mg/dL 1.6-2.6 627) Fiber Worker ID - ADMINHEPATIC FUNCTION [id number] 04:08:19 Test Item Value Reference Range Interpretation [...] code = 105 U/L 6-55 H 347) Fiber Worker ID - ADMINBASIC METABOLIC [id number] 04:08:18 Test Item Value Reference Range Interpretation [...] not appl icable for dialysis patien ts Fiber Worker ID - [id number] 04:01:15 Test Item Value Reference Range Interpretation [...] 0-0 (BEAKER) (test code = 413) POCT-GLUCOSE [id number] 22:10:11 Test Item Value Reference Range Interpretation Comments POC-GLUCOSE METER 177 mg/dL 70-110 H : TESTED A T [facility] 6720 (BEAKER) (test code = [place], 1538) 69686: Fiber Worker/Techni maikol ID = [id number] for DENTON SPARKS [id number] 21:35:43 Test Item Value Reference Range Interpretation Comments PARTIAL THROMBOPLASTIN TIME 38.3 seconds 22.5-36.0 H (BEAKER) (test code = 760) BASIC METABOLIC [id number] 19:01:24 Test Item Value Reference Range Interpretation [...] not appl icable for dialysis patien ts Fiber Worker ID - BSPOCT-GLUCOSE [id number] 18:01:46 Test Item Value Reference Range Interpretation Comments POC-GLUCOSE METER 300 mg/dL 70-110 H : TESTED A T [facility] 6720 (BEAKER) (test code = [place], 1538) 00382: Fiber Worker/Techni maikol ID = [id number] for Marina Yee gómez HIGH SENSITIVITY TROPONIN [id number] 17:14:28 Test Item Value Reference Range Interpretation Comments HIGH SENSITIVITY TROPONIN I (test 67148 pg/ml <=35 code = 7232343) Fiber Worker ID - ADMINThe AGRICULTURAL RESEARCH TECHNICIAN STAT High Sensitivity Troponin-I results should be used in conjunction with other diagnostic information such as ECG, clinical observations and information, and patientsymptoms to aid in the diagnosis of [place].Fiber Worker ID - [id number] 14:33:25 Test Item Value Reference Range Interpretation Comments PARTIAL THROMBOPLASTIN TIME 58.6 seconds 22.5-36.0 H (BEAKER) (test code = 760) POCT-GLUCOSE [id number] 11:32:29 Test Item Value Reference Range Interpretation Comments POC-GLUCOSE METER 194 mg/dL 70-110 H : TESTED A T [facility] 6720 (NEO) (test code = BHAVNA Gutiérrez [facility], 1538) 08860: Fiber Worker/Techni maikol ID = [id number] for Yee Pantoja RAD, CHEST, 1 VIEW, NON [id number] 10:55:00Reason for exam:->CHF/Pulm edemaS[facility]PS [facility] : 1950 Sex: MFINAL [...] may represent pneumonia or atelectasis. Signed: Collette [facility] Verified Date/Time: 08/12/2022 10:55:02 ReadingLocation: [facility] [address] [facility] Reading Room Electronically signed by: COLLETTE CHESTER MD on 0 08/12/2022 10:55 AMHEMOGLOBIN [id number] 10:17:54 Test Item Value Reference Range Interpretation [...] 5.7- 6.4% indicates increased risk for diabetes (prediabetes)."Fiber Worker ID - ADMPOCT- GLUCOSE [id number] 08:14:38 Test Item Value Reference Range Interpretation Comments POC-GLUCOSE METER 249 mg/dL 70-110 H : TESTED A T [facility] 6720 (BEAKER) (test code = BH[place], 1538) 61146: Fiber Worker/Techni maikol ID = [id number] for Yee Pantoja HIGH SENSITIVITY TROPONIN [id number] 06:02:40 Test Item Value Reference Range Interpretation Comments HIGH SENSITIVITY TROPONIN I (test > pg/ml <=35 code = 1346143) Fiber Worker ID - ADMINThe AGRICULTURAL RESEARCH TECHNICIAN STAT High Sensitivity Troponin-I results should be used in conjunction with other diagnostic information such as ECG, clinical observations and information, and patientsymptoms to aid in the diagnosis of [place].Fiber Worker ID - ADMINBASIC METABOLIC [id number] 05:00:15 Test Item Value Reference Range Interpretation [...] not appl icable for dialysis patien ts Fiber Worker ID - ADMINHEPATIC FUNCTION [id number] 05:00:15 Test Item Value Reference Range Interpretation [...] Specimen slightly (test code = 347) hemolyzed Fiber Worker ID - [id number] 05:00:14 Test Item Value Reference Range Interpretation Comments MAGNESIUM (BEAKER) 2.2 mg/dL 1.6-2.6 Specimen slightly (test code = 627) hemolyzed Fiber Worker ID - [id number] 04:54:01 Test Item Value Reference Range Interpretation [...] (BEAKER) (test code = 413) Strep pneumoniae [id number] 01:08:51 Test Item Value Reference Range Interpretation Comments Strep pneumoniae Presumptive negative Presumptive Antigen (test code = [place] [address]-6) pneumonia - see pneumococcal comment pneumonia - [...] test. Lab Interpretation Normal (test code = 34404-6) [facility] HospitalTREP PNEUMONIAE [id number] 01:08:51 Test Item Value Reference Range Interpretation Comments STREP PNEUMONIAE Presumptive negative Presumptive negative ANTIGEN (MEDOP SERVICESAKER) for pneumococcal for pneumococcal (test code = 1615) pneumonia - see pneumonia - see comment commen Presumptive negative for pneumococcal pneumonia, suggesting no current or recent pneumococcal infection. Infection due to S. pneumoniae cannot be ruled out since the antigen present in the sample may be below the detection limit of the test. Legionella antigen, [id number] 01:07:14 Test Item Value Reference Range Interpretation Comments Legionella Urine Negative - see Negative Negative for L. Antigen (test code = comment pneumop gilson 71543-9) serogroup 1 antigen, sugges ting no recent or current infecti on with this serogroup. Legionellosis cannot be ruled out since other serogroups and species may cau se disease. Lab Interpretation Normal (test code = 92406-4) [facility] CampusLEGION[facility]LLA ANTIGEN, [id number] 01:07:14 Test Item Value Reference Range Interpretation Comments L. PNEUMOPHILA Negative - see Negative Negative fo r L. SEROGP 1 UR AG comment pneumophila ([employer]) (test code serogrou p 1 antigen, = 1156) suggesting no r ecent or current infe ction with this serog roup. Legionellosis c annot be ruled out si nce other serogroup s and species may cau se disease. HIGH SENSITIVITY TROPONIN [id number] 00:35:38 Test Item Value Reference Range Interpretation Comments HIGH SENSITIVITY TROPONIN I (test > pg/ml <=35 code = 3393133) Fiber Worker ID - ADMINThe AGRICULTURAL RESEARCH TECHNICIAN STAT High Sensitivity Troponin-I results should be used in conjunction with other diagnostic information such as ECG, clinical observations and information, and patientsymptoms to aid in the diagnosis of UT.Fiber Worker ID - ADMINLACTIC ACID, [id number] 23:56:19 Test Item Value Reference Range Interpretation Comments LACTATE BLOOD VENOUS 2.05 mmol/L 0.50-2.20 Specime n slightly (2) ([employer]) (test hemolyzed code = 2872) Fiber Worker ID - [id number] 23:36:18 Test Item Value Reference Range Interpretation Comments PARTIAL THROMBOPLASTIN TIME 37.7 seconds 22.5-36.0 H ([employer]) (test code = 760) HEPATITIS PANEL, [id number] 23:34:58 Test Item Value Reference Range Interpretation Comments HEPATITIS A IGM ANTIBODY (BEAKER) Nonreactive Nonreactive (test code = 498) HEPATITIS B CORE IGM ANTIBODY Nonreactive Nonreactive (BEAKER) (test code = 645) HEPATITIS C ANTIBODY (BEAKER) Nonreactive Nonreactive (test code = 367) HEPATITIS B SURFACE ANTIGEN (2) Nonreactive Nonreactive (BEAKER) (test code = 2585) Fiber Worker ID - ADMINBLOOD GAS, [id number] 23:24:10 Test Item Value Reference Range Interpretation [...] (BEAKER) (test code = 1819) 32.0 LIPID [id number] 23:12:56 Test Item Value Reference Range Interpretation Comments TRIGLYCERIDES (BEAKER) (test code = 108 mg/dL 540) CHOLESTEROL (BEAKER) (test code = 142 mg/dL 631) HDL CHOLESTEROL (BEAKER) (test code 29 mg/dL = 976) LDL CHOLESTEROL CALCULATED (BEAKER) 91 mg/dL (test code = 633) Triglyceride Reference Range: Low Risk <150 Borderline 150-199 High Risk 200-499 Very High Risk >=500Cholesterol Reference Range: Low Risk <200 Borderline 200-239 High Risk >240HDL Cholesterol Reference Range: Low Risk >=60 High Risk <40LDL Cholesterol Reference Range: Optimal <100 Near Optimal 100-129 Borderline 130-159 High 160-189 Very High >=190 Fiber Worker ID - [id number] 23:12:56 Test Item Value Reference Range Interpretation Comments MAGNESIUM (BEAKER) (test code = 2.5 mg/dL 1.6-2.6 627) Fiber Worker ID - ADMINCT, BRAIN, WITHOUT [id number] 22:07:00Reason for Exam (Free Text) - Addiitonal information for Radiologist->evaluate for hemorrhage seen on [facility] 1950 Sex: MFINAL [...] Angélica Palomino MDReport Verified Date/Time: 08/11/2022 22:07:19 [id number] 22:04:33 Test Item Value Reference Range Interpretation Comments PROCALCITONIN (BEAKER) (test 120.17 ng/mL <0.05 code = 3036) SEPSIS RISK (ng/mL)Low: 0.05-0.50Intermediate: 0.51-2.00High: >=2.01TSH/FREE T4 IF [id number] 21:59:30 Test Item Value Reference Range Interpretation Comments THYROID STIMULATING HORMONE 1.090 uIU/mL 0.350-4.940 (BEAKER) (test code = 772) Fiber Worker ID - ADMINCT, CHEST, WITHOUT [id number] 21:59:00Unlisted Reason for Exam - Click Yes and Enter Reason Below->No [facility] : 1950 Sex: MFINAL [...] thickening, component of interstitial edema. Signed: [facility] Verified Date/Time: 08/11/2022 21:59:12 HEPATIC FUNCTION [...] code = 122 U/L 6-55 H 347) Fiber Worker ID - ADMINLACTIC ACID, [id number] 21:32:22 Test Item Value Reference Range Interpretation Comments LACTATE BLOOD VENOUS 2.26 mmol/L 0.50-2.20 H Specime n slightly (2) (BEAKER) (test hemolyzed code = 2872) Fiber Worker ID - [id number] 21:26:29 Test Item Value Reference Range Interpretation Comments PARTIAL THROMBOPLASTIN TIME 41.5 seconds 22.5-36.0 H (BEAKER) (test code = 760) HIGH SENSITIVITY TROPONIN [id number] 20:50:31 Test Item Value Reference Range Interpretation Comments HIGH SENSITIVITY TROPONIN I (test > pg/ml <=35 HH code = 5575505) Fiber Worker ID - DBThe AGRICULTURAL RESEARCH TECHNICIAN STAT High Sensitivity Troponin-I results should be used in conjunctionwith other diagnostic information such as ECG, clinical observations and information, and patient symptoms to aid in the diagnosis of UT.Fiber Worker ID - DB(CELLAVISION MANUAL DIFF)2022-08-11 20:38:47 Test [...] CONCENTRATION Adequate (CELLAVISION)(BEAKER) (test code = 3438) Fiber Worker ID - Luci Mckinney comments: Slide comments:CBC W/PLT COUNT & AUTO [id number] 20:38:46 Test Item Value Reference Range Interpretation [...] pg/mL 0-100 H (test code = 700) Fiber Worker ID - DBBASIC METABOLIC [id number] 20:19:11 Test Item Value Reference Range Interpretation [...] decreased 60-89 G3a Mildl y to moderately 45- 59 G3b Moderately to s everely 30-44 G4 Severl y decreased 15-29 G5 Kidney failure <15Reported eGF R is based on the CKD-EPI 1 equation that d oes not use a race coefficientEsti mated GFR is not as accur ate as Creatinine Jessica phil in predicting glom erular filtration rate . Estimated GFR is not appl icable for dialysis patien ts Fiber Worker ID - DB
[2023-04-11] MEDS ORDERED: FAMOTIDINE 20 MG TAB ONE (12:22)
[2023-04-11] MEDS ORDERED: CETIRIZINE HCL 5 MG TABLET ONE (12:22)
[2023-04-11 12:35] LABS: SARS-CoV-2 Antigen Rapid Res Negative (Negative)
--- NOTE | 2023-04-11 13:24 | ER ---
Nurse's Notes [facility] Name: Smooth Ordaz Age: 72 yrs Sex: Male : 1950 Arrival Date: 04/11/2023 Time: 10:21 Bed 11 Private MD: Diagnosis: Allergic rhinitis, unspecified Presentation: 04/11 11:01 Chief complaint: Patient states: he has been having a cough with sinus drainage for ap3 approx one month now. patient has been unable to see his PCP due to his work schedule. Coronavirus screen: At this time, the client does not indicate any symptoms associated with coronavirus-19. Ebola Screen: No symptoms or risks identified at this time. Initial Sepsis Screen: Does the patient meet any 2 criteria? No. Patient's initial sepsis screen is negative. Does the patient have a suspected source of infection? No. Patient's initial sepsis screen is negative. Risk Assessment: Do you want to hurt yourself or someone else? Patient reports no desire to harm self or others. Onset of symptoms is unknown. 11:01 Method Of Arrival: Ambulatory ap3 11:01 Acuity: ANAYELI 4 ap3 Triage Assessment: 11:02 General: Appears in no apparent distress. Behavior is calm, cooperative, appropriate ap3 for age. Pain: Denies pain. Neuro: Level of Consciousness is awake, alert, obeys commands, Oriented to person, place, time, situation, Appropriate for age. Cardiovascular: Patient's skin is warm and dry. Respiratory: Reports cough that is since a month ago Airway is patent Respiratory effort is even, unlabored, Respiratory pattern is regular, symmetrical. Historical: - Allergies: 11: statins; ap3 - Home Meds: 11: unknown blood pressure medications [Active]; ap3 - PMHx: 11: Hypertensive disorder; ap3 - PSHx: 11:04 cardiac valve replacement 2022; ap3 - Immunization history:: Client reports having NOT received the Covid vaccine. Flu vaccine is not up to date. - Social history:: Smoking status: Patient denies any tobacco usage or history of. Screenin:04 [facility] ED Fall Risk Assessment (Adult) History of falling in the last 3 months, ap3 including since admission No falls in past 3 months (0 pts). Abuse screen: Denies threats or abuse. Nutritional screening: No deficits noted. Tuberculosis screening: No symptoms or risk factors identified. Assessment: 12:25 General: Appears in no apparent distress. Behavior is calm, cooperative. Pain: Pain hb currently is 3 out of 10 on a pain scale. Neuro: Level of Consciousness is awake, alert, obeys commands, Oriented to person, place, time, situation. Cardiovascular: Patient's skin is warm and dry. Respiratory: Reports cough that is Respiratory effort is even, unlabored, Respiratory pattern is regular, symmetrical. GI: No signs and/or symptoms were reported involving the gastrointestinal system. : No signs and/or symptoms were reported regarding the genitourinary system. EENT: Reports sinus congestion . Derm: Skin is pink, warm \T\ dry. Musculoskeletal: No signs and/or symptoms reported regarding the musculoskeletal system. 13:50 Reassessment: Patient appears in no apparent distress at this time. Patient and/or hb family updated on plan of care and expected duration. Pain level reassessed. Vital Signs: 11:01 BP 161 / 93; Pulse 94; Resp 18; Temp 98.1(O); Pulse Ox 100% ; Weight 92.99 kg; ap3 ED Course: 10:23 Patient arrived in ED. rg4 10:38 Bambi Ignacio FNP-C is [facility]. snw 10:38 Jung Nelson MD is Attending Physician. snw 11:02 Triage completed. ap3 11:04 Arm band placed on right wrist. ap3 12:07 Cinthya Bynum, RN is Primary Nurse. hb 12:17 Flu Sent. hb 12:17 SARS RAPID Sent. hb 12:25 Patient has correct armband on for positive identification. Provided Education on: hb tests, result times, medications . 12:25 No provider procedures requiring assistance completed. Patient did not have IV access hb during this emergency room visit. Administered Medications: 12:16 Drug: Famotidine PO 20 mg PO once Route: PO; hb 12:17 Drug: ZyrTEC - Cetirizine PO 10 mg PO once Route: PO; hb Medication: 12:25 VIS not applicable for this client. hb Outcome: 13:23 Discharge ordered by . snw 13:50 Discharged to home ambulatory, hb 13:50 Condition: stable 13:50 Discharge instructions given to patient, Instructed on discharge instructions, follow up and referral plans. medication usage, Demonstrated understanding of instructions, follow-up care, medications, Prescriptions given X 2, 13:50 Patient left the ED. Signatures: Bambi Ignacio, DRUG SAFETY PHYSICIAN-C DRUG SAFETY PHYSICIAN-Csnw Cinthya Bynum, RN RN Sara Laura4 Eden Moser RN RN ap3 Corrections: (The following items were deleted from the chart) 11:03 11:02 Allergies: No Known Allergies; ap3 ap3
--- NOTE | 2023-04-11 13:24 | EDPHYS ---
Physician Documentation [facility] Name: Smooth Ordaz Age: 72 yrs Sex: Male : 1950 Arrival Date: 04/11/2023 Time: 10:21 Bed 11 Private MD: ED Physician Jung Nelson HPI: 04/11 11:49 This 72 yrs old Male presents to ER via Ambulatory with complaints of Cough, Drainage. snw 11:49 The patient or guardian reports cough, nasal congestion. Onset: The symptoms/episode snw began/occurred acutely, 1 month(s) ago, and became persistent. Severity of symptoms: At their worst the symptoms were mild. Associated signs and symptoms: Pertinent positives: cough. It is unknown whether or not the patient has had similar symptoms in the past. The patient has not recently seen a physician. pt c/o congestion x 1 month. 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 Historical: - Allergies: 11:02 statins; ap3 - Home Meds: 11:02 unknown blood pressure medications [Active]; ap3 - PMHx: 11:02 Hypertensive disorder; ap3 - PSHx: 11:04 cardiac valve replacement 2022; ap3 - Immunization history:: Client reports having NOT received the Covid vaccine. Flu vaccine is not up to date. - Social history:: Smoking status: Patient denies any tobacco usage or history of. ROS: 11:49 Constitutional: Negative for fever, chills, and weight loss, Eyes: Negative for injury, snw pain, redness, and discharge, Neck: Negative for injury, pain, and swelling, Cardiovascular: Negative for chest pain, palpitations, and edema, Respiratory: Negative for shortness of breath, cough, wheezing, and pleuritic chest pain, Abdomen/GI: Negative for abdominal pain, nausea, vomiting, diarrhea, and constipation, Back: Negative for injury and pain, : Negative for injury, bleeding, discharge, and swelling, MS/Extremity: Negative for injury and deformity, Skin: Negative for injury, rash, and discoloration, Neuro: Negative for headache, weakness, numbness, tingling, and seizure, Psych: Negative for depression, anxiety, suicide ideation, homicidal ideation, and hallucinations, 11:49 ENT: Positive for sinus congestion, Exam: 11:48 Constitutional: This is a well developed, well nourished patient who is awake, alert, snw and in no acute distress. Head/Face: Normocephalic, atraumatic. Eyes: Pupils equal round and reactive to light, extra-ocular motions intact. Lids and lashes normal. Conjunctiva and sclera are non-icteric and not injected. Cornea within normal limits. Periorbital areas with no swelling, redness, or edema. ENT: Nares patent. No nasal discharge, no septal abnormalities noted. Tympanic membranes are normal and external auditory canals are clear. Oropharynx with no redness, swelling, or masses, exudates, or evidence of obstruction, uvula midline. Mucous membranes moist. Neck: Trachea midline, no thyromegaly or masses palpated, and no cervical lymphadenopathy. Supple, full range of motion without nuchal rigidity, or vertebral point tenderness. No Meningismus. Chest/axilla: Normal chest wall appearance and motion. Nontender with no deformity. No lesions are appreciated. Cardiovascular: Regular rate and rhythm with a normal S1 and S2. No gallops, murmurs, or rubs. Normal PMI, no JVD. No pulse deficits. Respiratory: Lungs have equal breath sounds bilaterally, clear to auscultation and percussion. No rales, rhonchi or wheezes noted. No increased work of breathing, no retractions or nasal flaring. Abdomen/GI: Soft, non-tender, with normal bowel sounds. No distension or tympany. No guarding or rebound. No evidence of tenderness throughout. Back: No spinal tenderness. No costovertebral tenderness. Full range of motion. Skin: Warm, dry with normal turgor. Normal color with no rashes, no lesions, and no evidence of cellulitis. MS/ Extremity: Pulses equal, no cyanosis. Neurovascular intact. Full, normal range of motion. Neuro: Awake and alert, GCS 15, oriented to person, place, time, and situation. Cranial nerves II-XII grossly intact. Motor strength 5/5 in all extremities. Sensory grossly intact. Cerebellar exam normal. Normal gait. Psych: Awake, alert, with orientation to person, place and time. Behavior, mood, and affect are within normal limits. Vital Signs: 11:01 BP 161 / 93; Pulse 94; Resp 18; Temp 98.1(O); Pulse Ox 100% ; Weight 92.99 kg; ap3 MDM: 11:19 Patient medically screened. snw 13:22 Differential Diagnosis: Upper Respiratory Infection Allergic Rhinitis. Data reviewed: snw vital signs, nurses notes. I considered the following discharge prescriptions or medication management in the emergency department Medications were administered in the Emergency Department. See MAR. Counseling: I had a detailed discussion with the patient and/or guardian regarding the historical points, exam findings, and any diagnostic results supporting the discharge/admit diagnosis, the presence of at least one elevated blood pressure reading (>120/80) during this emergency department visit, the need for outpatient follow up, for definitive care, to return to the emergency department if symptoms worsen or persist or if there are any questions or concerns that arise at home. Special discussion: Based on the history and exam findings, there is no indication for further emergent testing or inpatient evaluation. I discussed with the patient/guardian the need to see the primary care provider for further evaluation of the symptoms. 04/11 11:36 Order name: SARS RAPID; Complete Time: 12:43 snw 04/11 11:36 Order name: Flu; Complete Time: 12:49 snw Administered Medications: 12:16 Drug: Famotidine PO 20 mg PO once Route: PO; hb 12:17 Drug: ZyrTEC - Cetirizine PO 10 mg PO once Route: PO; hb Disposition Summary: 04/11/23 13:23 Discharge Ordered Notes: Location: Home snw Condition: Stable snw Diagnosis - Allergic rhinitis, unspecified snw Followup: snw - With: Private Physician - When: 2 - 3 days - Reason: Recheck today's complaints, Continuance of care, Re-evaluation by your physician Discharge Instructions: - Discharge Summary Sheet snw - Allergic Rhinitis, Adult snw Forms: - Work release form snw - Medication Reconciliation Form snw - Thank You Letter snw - Antibiotic Education snw - Prescription Opioid Use snw - Patient Portal Instructions snw - Leadership Thank You Letter snw Prescriptions: - Zyrtec 10 mg Oral Tablet - take 1 tablet ORAL route once daily As needed; 20 tablet; Refills: 0, Product snw Selection Permitted - Pepcid 20 mg Oral Tablet - take 1 tablet ORAL route once daily; 20 tablet; Refills: 0, Product Selection snw Permitted Signatures: Dispatcher [employer] Bambi Loredo, DOCTOR OF VETERINARY MEDICINE-C DOCTOR OF VETERINARY MEDICINE-Csnw Cinthya Bynum RN RN Eden Moser RN RN ap3 Corrections: (The following items were deleted from the chart) 11:03 11:02 Allergies: No Known Allergies; ap3 ap3
[2023-04-11 13:55] VITALS: BP 161/93; TEMP 98.1; O2SAT 100
== END 2023-04-11 13:50 | disposition home or self-care (01) ==
LOC: ER 10:21
DX: J30.9 Allergic rhinitis, unspecified (principal); R05.9 Cough, unspecified; R09.81 Nasal congestion; I10 Essential (primary) hypertension; Z20.822 Contact with and (suspected) exposure to COVID-19; Z11.52 Encounter for screening for COVID-19; Z88.8 Allergy status to other drugs, medicaments and biological substances; Z95.2 Presence of prosthetic heart valve
CPT/HCPCS: 36415; 87804; 87811; 99283

== ENCOUNTER 2024-05-04 07:14 | Inpatient (IN) | payer OTHER ==
[2024-05-04 07:41] LABS: Absolute Basophils 0.1 K/uL (0-0.5); Absolute Eosinophils 0.3 K/uL (0-0.5); Absolute Lymphocytes (CBC) 1.5 K/uL (0.7-4.9); Absolute Monocytes 0.7 K/uL (0.1-1.3); Absolute Neutrophil 3.8 K/uL (1.8-8.0); Basophils % 1.3 % (0-1.3); Eosinophils % 4.6 % (0-4.4); Hematocrit 41.5 % (39.6-49.0); Hemoglobin 14.1 g/dL (13.6-17.9); Lymphocytes % 23.4 % (15.3-44.8); MCH 31.5 pg (27.0-35.0); MCHC 34.1 g/dL (32.0-36.0); MCV 92.5 fL (80-100); MPV 8.8 fL (7.6-11.3); Monocytes % 11.4 % (3.3-12.3); Neutrophils % 59.3 % (41.7-73.7); Nucleated Red Blood Cells % 0.1 % (0-0); Platelets 200 thou/uL (152-406); RBC Red Blood Cell Count 4.48 M/uL (4.33-5.43); Red Cell Distribution Width 13.6 % (12.1-15.2)
[2024-05-04 07:49] LABS: PTT, Activated Partial Thromb 32.2 SECONDS (24.3-36.9); Protime INR 1.07
[2024-05-04] MEDS ORDERED: FAMOTIDINE 20 MG/2 ML VIAL IV ONE (07:50)
[2024-05-04] MEDS ORDERED: ONDANSETRON 4 MG/2 ML VIAL ONE (07:51)
[2024-05-04] MEDS ORDERED: NA CHLORIDE 0.9% 1,000 ML ONE ×2 (07:51→08:26)
[2024-05-04] MEDS ORDERED: GLUCAGON 1 MG/VIAL ONE (07:51)
[2024-05-04 07:56] LABS: Specific Gravity 1.011 (1.005-1.030); Sqamous Epithelial None Seen /HPF (None Seen); Urine Bacteria None Seen /HPF (<20); Urine Bilirubin NEGATIVE (Negative); Urine Blood Negative (Negative); Urine Clarity Turbid (Clear); Urine Color Light-Yellow (Yellow); Urine Culture Reflex Order NOT NEEDED; Urine Glucose NEGATIVE (Negative); Urine Ketones NEGATIVE (Negative); Urine Microscopic Reflex YN ORDER UMIC; Urine Mucus Slight /HPF (None Seen); Urine Nitrite NEGATIVE (Negative); Urine Protein NEGATIVE (Negative); Urine RBC None Seen /HPF (None Seen); Urine Urobilinogen Normal (Normal); Urine WBC <5 /HPF (<5); Urine pH 6.5 (5.0-7.0)
[2024-05-04 08:07] LABS: Barbiturates NEGATIVE (NEGATIVE); Benzodiazepines NEGATIVE (NEGATIVE); Cocaine NEGATIVE (NEGATIVE); METHAMPHETAM NEGATIVE (NEGATIVE); Methadone NEGATIVE (NEGATIVE); Opiates NEGATIVE (NEGATIVE); Phencyclidine NEGATIVE (NEGATIVE); THC Cannibis NEGATIVE (NEGATIVE)
[2024-05-04 08:13] LABS: ALT/SGPT 19 U/L (16-61); AST/SGOT 18 U/L (15-37); Albumin 3.7 g/dL (3.4-5.0); Albumin/Globulin Ratio 0.9 (1.1-1.8); Alkaline Phosphatase 81 U/L (45-117); Anion Gap 6.7 mEq/L (5.0-15.0); BUN Blood Urea Nitrogen 18 mg/dL (7-18); Bicarbonate 28 mEq/L (21-32); Bilirubin Direct 0.2 mg/dL (0-0.2); Bilirubin Indirect, Calculated 0.8 mg/dL (0.2-0.8); Glomerular Filtration Rate 62 ml/min (=/>90); Glucose Level 150 mg/dL (74-106); Lipase 35 U/L (13-75); Magnesium 1.9 mg/dL (1.6-2.4); NT PRO-BNP 970 pg/mL (<450); Potassium 3.7 mEq/L (3.5-5.1); Protein, Total 7.7 g/dL (6.4-8.2); Sodium Level 138 mEq/L (136-145); Troponin High Sensitivity 25.3 pg/mL (<58.9)
[2024-05-04] MEDS ORDERED: MULTIVITAMINS 10 ML VIAL (INJ) IV ONE (08:26)
--- NOTE | 2024-05-04 08:30 | EDPHYS ---
Physician Documentation [facility] Name: Smooth Ordaz Age: 73 yrs Sex: Male : 1950 Arrival Date: 05/04/2024 Time: 07:14 Bed 16 Private MD: ED Physician Jung Nelson HPI: 05/04 08:18 This 73 yrs old Male presents to ER via EMS with complaints of Overdose. casey 08:18 The patient presents to the emergency department after a known overdose, that was casey intentional. Context: Method: the patient has a confirmed or suspected ingestion, LOPRESSOR, LISINOPRIL. Associated signs and symptoms: Pertinent positives: SUICIDAL. Severity of symptoms: At their worst the symptoms were mild in the emergency department the symptoms are unchanged. The patient has not experienced similar symptoms in the past. Historical: - Allergies: 07:18 statins; ko1 - PMHx: 07:18 Hypertensive disorder; ko1 - PSHx: 07:18 cardiac valve replacement 2022; ko1 - Immunization history:: Adult Immunizations unknown. - Infectious Disease History:: Denies. - Social history:: Smoking status: Patient/guardian denies using tobacco, but has a distant history of tobacco abuse. ROS: 08:21 Constitutional: Negative for fever, chills, and weight loss, Eyes: Negative for injury, casey pain, redness, and discharge, ENT: Negative for injury, pain, and discharge, Neck: Negative for injury, pain, and swelling, Cardiovascular: Negative for chest pain, palpitations, and edema, Respiratory: Negative for shortness of breath, cough, wheezing, and pleuritic chest pain, Abdomen/GI: Negative for abdominal pain, nausea, vomiting, diarrhea, and constipation, Back: Negative for injury and pain, : Negative for injury, bleeding, discharge, and swelling, MS/Extremity: Negative for injury and deformity, Skin: Negative for injury, rash, and discoloration, Allergy/Immunology: Negative for hives, rash, and allergies, Endocrine: Negative for neck swelling, polydipsia, polyuria, polyphagia, and marked weight changes, Hematologic/Lymphatic: Negative for swollen nodes, abnormal bleeding, and unusual bruising, 08:21 Neuro: Positive for dizziness, weakness, 08:21 Psych: Positive for suicide gesture, suicidal ideation, Exam: 08:21 Constitutional: This is a well developed, well nourished patient who is awake, alert, casey and in no acute distress. Head/Face: Normocephalic, atraumatic. Eyes: Pupils equal round and reactive to light, extra-ocular motions intact. Lids and lashes normal. Conjunctiva and sclera are non-icteric and not injected. Cornea within normal limits. Periorbital areas with no swelling, redness, or edema. ENT: Nares patent. No nasal discharge, no septal abnormalities noted. Tympanic membranes are normal and external auditory canals are clear. Oropharynx with no redness, swelling, or masses, exudates, or evidence of obstruction, uvula midline. Mucous membranes moist. Neck: Trachea midline, no thyromegaly or masses palpated, and no cervical lymphadenopathy. Supple, full range of motion without nuchal rigidity, or vertebral point tenderness. No Meningismus. Chest/axilla: Normal chest wall appearance and motion. Nontender with no deformity. No lesions are appreciated. Cardiovascular: Regular rate and rhythm with a normal S1 and S2. No gallops, murmurs, or rubs. Normal PMI, no JVD. No pulse deficits. Respiratory: Lungs have equal breath sounds bilaterally, clear to auscultation and percussion. No rales, rhonchi or wheezes noted. No increased work of breathing, no retractions or nasal flaring. Abdomen/GI: Soft, non-tender, with normal bowel sounds. No distension or tympany. No guarding or rebound. No evidence of tenderness throughout. Back: No spinal tenderness. No costovertebral tenderness. Full range of motion. Male : Normal genitalia with no discharge or lesions. Skin: Warm, dry with normal turgor. Normal color with no rashes, no lesions, and no evidence of cellulitis. Neuro: Awake and alert, GCS 15, oriented to person, place, time, and situation. Cranial nerves II-XII grossly intact. Motor strength 5/5 in all extremities. Sensory grossly intact. Cerebellar exam normal. Normal gait. Psych: Awake, alert, with orientation to person, place and time. Behavior, mood, and affect are within normal limits. 08:21 Psych: Behavior/mood is pleasant, cooperative, Affect is calm, Oriented to person, place, time, Patient has no thoughts/intents to harm self or others. Judgement / Insight is normal. Memory is normal. Delusions/hallucinations are not present. 08:30 ECG was reviewed by the Attending Physician. [facility] Vital Signs: 07:16 BP 131 / 79; Pulse 65; Resp 16; Temp 97.4; Pulse Ox 98% on R/A; ko1 07:33 Weight 88.45 kg (R); aa5 08:15 BP 152 / 94; Pulse 60; Resp 15; Pulse Ox 99% ; ko1 09:38 BP 99 / 55; Pulse 74; Resp 15; Pulse Ox 98% ; ko1 10:51 BP 121 / 73; Pulse 67; Resp 15; Pulse Ox 100% ; ko1 11:53 BP 111 / 74; Pulse 60; Resp 15; Pulse Ox 99% ; ko1 12:50 BP 115 / 76; Pulse 64; Resp 18; Temp 97.9; Pulse Ox 99% on R/A; ph 13:49 BP 108 / 69; Pulse 73; Resp 18; Temp 97.5; Pulse Ox 98% on R/A; ph 15:25 BP 105 / 63; Pulse 74; Resp 15; Temp 98.2; ty MDM: 07:23 Medical Screening Exam initiated casey 08:23 Differential diagnosis: Ingestion/exposure to LOPRESSOR , LISINOPRIL, STATINS, ASPIRIN. [facility] Differential Diagnosis altered mental status, sepsis, flu. Data reviewed: vital signs, nurses notes, EMS record, lab test result(s), EKG, radiologic studies, plain films. Consideration of Admission/Observation Patient was admitted/placed on observation. Escalation of care including admission/observation considered. I considered the following discharge prescriptions or medication management in the emergency department Medications were administered in the Emergency Department. See MAR. Independent interpretation of the following test(s) in the Emergency Department EKG: See my EKG interpretation above. Test considered but Not performed: CT: NO CT HEAD. Historians other than the Patient: EMS: EMS WELL INFORMED. Care significantly affected by the following chronic conditions: Hypertension. Counseling: I had a detailed discussion with the patient and/or guardian regarding the historical points, exam findings, and any diagnostic results supporting the discharge/admit diagnosis, lab results, radiology results, the need for further work-up and treatment in the hospital. 05/04 07:26 Order name: Basic Metabolic Panel; Complete Time: 08:26 [facility] 05/04 07:26 Order name: CBC with Diff; Complete Time: 08:26 [facility] 05/04 07:26 Order name: LFT's; Complete Time: 08:26 [facility] 05/04 07:26 Order name: Magnesium; Complete Time: 08:26 [facility] 05/04 07:26 Order name: NT PRO-BNP; Complete Time: 08:26 [facility] 05/04 07:26 Order name: PT-INR; Complete Time: 08:26 [facility] 05/04 07:26 Order name: Troponin HS; Complete Time: 08:26 [facility] 05/04 07:26 Order name: Acetaminophen; Complete Time: 08:26 [facility] 05/04 07:26 Order name: ETOH Level; Complete Time: 08:26 [facility] 05/04 07:26 Order name: Ptt, Activated; Complete Time: 08:26 [facility] 05/04 07:26 Order name: Salicylate; Complete Time: 08:26 [facility] 05/04 07:26 Order name: Urinalysis w/ reflexes; Complete Time: 08:26 [facility] 05/04 07:26 Order name: Urine Drug Screen; Complete Time: 08:26 [facility] 05/04 07:26 Order name: Lipase; Complete Time: 08:26 [facility] 05/04 07:50 Order name: Flu; Complete Time: 09:54 [facility] 05/04 07:50 Order name: SARS RAPID; Complete Time: 09:54 [facility] 05/04 12:59 Order name: Asprin [facility] 05/04 12:59 Order name: Tylenol Level [facility] 05/04 07:26 Order name: XRAY Chest (1 view); Complete Time: 09:54 [facility] 05/04 08:43 Order name: CONS Physician Consult [facility] 05/04 12:59 Order name: EKG; Complete Time: 13:00 [facility] 05/04 07:26 Order name: Cardiac monitoring; Complete Time: 07:31 [facility] 05/04 07:26 Order name: EKG - Nurse/Tech; Complete Time: 07:31 [facility] 05/04 07:26 Order name: IV Saline Lock; Complete Time: 07:31 [facility] 05/04 07:26 Order name: Labs collected and sent; Complete Time: 07:31 [facility] 05/04 07:26 Order name: O2 Per Protocol; Complete Time: 07:31 [facility] 05/04 07:26 Order name: O2 Sat Monitoring; Complete Time: 07:31 [facility] 05/04 07:26 Order name: Suicide Screening ([place]); Complete Time: 07:41 [facility] 05/04 07:49 Order name: Tara; Complete Time: 12:36 [facility] 05/04 12:59 Order name: EKG - Nurse/Tech [facility] EC:30 Rate is 60 beats/min. Rhythm is regular. QRS Waddy is Normal. PA interval is normal. QRS casey interval is normal. QT interval is normal. No Q waves. T waves are Normal in leads aVL, aVF. ST Segment is depressed in leads I, II, aVL, aVF, V5, V6. Clinical impression: Abnormal EKG without significant change. Interpreted by me. Reviewed by me. Administered Medications: 07:55 Drug: NS 0.9% IV 1000 ml IV at 1000 ml once; to be given as a bolus over 60 minutes ko1 Route: IV; Rate: 1000 ml; Site: right antecubital; 08:57 Follow up: Response: No adverse reaction; IV Status: Completed infusion; IV Intake: ko1 1000ml 07:55 Drug: Glucagon IVP 1 mg IVP once Route: IVP; Site: right antecubital; ko1 08:10 Follow up: Response: No adverse reaction ko1 07:57 Drug: Ondansetron IVP 4 mg IVP once; over 2 minutes Route: IVP; Site: right antecubital;ko1 08:12 Follow up: Response: No adverse reaction ko1 08:00 Drug: Famotidine IVP 20 mg IVP once; dilute with 10 mL 0.9% NaCl; give over 2 minutes ko1 Route: IVP; Site: right antecubital; 08:15 Follow up: Response: No adverse reaction ko1 08:57 Drug: Banana Bag - (Multivitamin IV 1 amp, NS 0.9% IV 1000 ml, Thiamine IV 100 mg, ko1 foLIC Acid IVPB 1 mg) IV at 500 ml/hr once Route: IV; Rate: 500 ml/hr; Site: right antecubital; 11:02 Follow up: Response: No adverse reaction; IV Status: Completed infusion; IV Intake: ko1 1000ml 08:57 Drug: Actidose-Sorbitol PO Suspension 100 grams PO once Route: PO; ko1 09:29 Follow up: Response: No adverse reaction ko1 10:04 Drug: Sodium Bicarbonate IVP 1 amp IVP once; (50 mL); equals 50 mEq Route: IVP; Site: ko1 right antecubital; 10:19 Follow up: Response: No adverse reaction ko1 Disposition Summary: 05/04/24 08:30 Hospitalization Ordered Notes: Hospitalization Status: Observation casey Provider: Rayshawn Mcneal cha Location: Telemetry/MedSurg (observation) casey Condition: Fair casey Problem: new casey Symptoms: have improved casey Bed/Room Type: Standard casey Room Assignment: 230(05/04/24 14:07) bc6 Diagnosis - Suicide attempt casey - Suicidal ideations - RESOLVED, OVERDOSE LOPRESSOR, LISINOPRIL casey - Adjustment disorder with depressed mood casey Forms: - Medication Reconciliation Form casey - SBAR form casey - Leadership Thank You Letter casey Signatures: Dispatcher [employer] EDJung Cherry MD MD cha Oliver, Kathy, RN RN ko1 Cecilia Martin bc6 Corrections: (The following items were deleted from the chart) 07:27 07:27 BASIC METABOLIC PANEL+C.LAB.BRZ ordered. EDMS EDMS 07:27 07:27 CBC+H.LAB.BRZ ordered. EDMS EDMS 07:27 07:27 HEPATIC FUNCTION+C.LAB.BRZ ordered. EDMS EDMS 07:27 07:27 MAGNESIUM+C.LAB.BRZ ordered. EDMS EDMS 07:27 07:27 PROBNP+C.LAB.BRZ ordered. EDMS EDMS 07:27 07:27 PROTIME (+INR)+COAG.LAB.BRZ ordered. EDMS EDMS 07:27 07:27 Troponin High Sensitivity+C.LAB.BRZ ordered. EDMS EDMS 07:27 07:27 ACETAMINOPHEN+C.LAB.BRZ ordered. EDMS EDMS 07:27 07:27 ETHANOL+C.LAB.BRZ ordered. EDMS EDMS 07:27 07:27 PTT, ACTIVATED+COAG.LAB.BRZ ordered. EDMS EDMS 07:27 07:27 SALICYLATE+C.LAB.BRZ ordered. EDMS EDMS 07:27 07:27 Urinalysis+U.LAB.BRZ ordered. EDMS EDMS 07:27 07:27 URINE DRUG SCREEN+UC.LAB.BRZ ordered. EDMS EDMS 07:27 07:27 LIPASE+C.LAB.BRZ ordered. EDMS EDMS 07:27 07:27 Chest Single View+RAD.RAD.BRZ ordered. EDMS EDMS 07:49 07:26 Misc. Order ordered. [facility] 14:07 08:30 [facility] bc6
--- NOTE | 2024-05-04 08:30 | ER ---
Nurse's Notes [facility] Name: Smooth Ordaz Age: 73 yrs Sex: Male : 1950 Arrival Date: 05/04/2024 Time: 07:14 Bed 16 Private MD: Diagnosis: Suicide attempt;Suicidal ideations-RESOLVED, OVERDOSE LOPRESSOR, LISINOPRIL;Adjustment disorder with depressed mood Presentation: 05/04 07:16 Chief complaint: EMS states: called for overdose, patient states he took approximately ko1 20 pills of each bottle (losartan 100mg, metoprolol ER 50 mg, atorvastatin 40mg and aspirin 81mg) in a suicide attempt. Coronavirus screen: At this time, the client does not indicate any symptoms associated with coronavirus-19. Ebola Screen: No symptoms or risks identified at this time. Initial Sepsis Screen: Does the patient meet any 2 criteria? No. Patient's initial sepsis screen is negative. Does the patient have a suspected source of infection? No. Patient's initial sepsis screen is negative. Risk Assessment: Do you want to hurt yourself or someone else? Patient reports no desire to harm self or others. Onset of symptoms was May 04, 2024. 07:16 Method Of Arrival: EMS: [facility] ko1 07:16 Acuity: ANAYELI 2 ko1 Triage Assessment: 07:18 General: Appears in no apparent distress. Behavior is calm, cooperative, appropriate ko1 for age. Pain: Denies pain. Historical: - Allergies: 07:18 statins; ko1 - PMHx: 07:18 Hypertensive disorder; ko1 - PSHx: 07:18 cardiac valve replacement 2022; ko1 - Immunization history:: Adult Immunizations unknown. - Infectious Disease History:: Denies. - Social history:: Smoking status: Patient/guardian denies using tobacco, but has a distant history of tobacco abuse. Screenin:19 [facility] ED Fall Risk Assessment (Adult) History of falling in the last 3 months, ko1 including since admission No falls in past 3 months (0 pts) Confusion or Disorientation No (0 pts) Intoxicated or Sedated No (0 pts) Impaired Gait No (0 pts) Mobility Assist Device Used No (0 pt) Altered Elimination No (0 pt) Score/Fall Risk Level 0 - 2 = Low Risk Oriented to surroundings, Maintained a safe environment, Educated pt \\T\\ family on fall prevention, incl call for assistance when getting out of bed, Assessed \\T\\ reinforced patient's understanding of fall precautions, Provided non-skid footwear, Hourly rounding (assess needs \\T\\ fall precautionary measures) done. Abuse screen: Denies threats or abuse. Denies injuries from another. Nutritional screening: No deficits noted. Tuberculosis screening: No symptoms or risk factors identified. Assessment: 07:19 Neuro: No deficits noted. Cardiovascular: No deficits noted. Respiratory: No deficits ko1 noted. GI: No deficits noted. : No deficits noted. EENT: No deficits noted. Derm: No deficits noted. Musculoskeletal: No deficits noted. 07:30 Reassessment: Spoke to poison control, inventory representative: Estrella, case # [id number], aa5 recommendations are as follow: repeat EKG in 4 hrs if QRS is >115 administer 1-2 sodium bicarb amps, repeat EKG after administration and consider sodium bicarb drip if no change; monitor for hypotension, bradycardia, electrolyte imbalance, GI symptoms, tachypnea, and drowsiness. ASA level >25mg/dl repeat level in 2-4 hrs. For hypotension administer IV fluids, glucagon, vasopressors, and high insulin therapy as needed. For bradycardia administer atropine. MD was notified of recommendations. . 08:30 Reassessment: Patient appears in no apparent distress at this time. ko1 09:30 Reassessment: Patient appears in no apparent distress at this time. No changes from ko1 previously documented assessment. Patient and/or family updated on plan of care and expected duration. Pain level reassessed. Patient is alert, oriented x 3, equal unlabored respirations, skin warm/dry/pink. 11:00 Reassessment: Estrella called from poison control, closed out the case after update ko1 given, instructed to call if he experienced any further issues. 14:12 Reassessment: Patient appears in no apparent distress at this time. Patient and/or ph family updated on plan of care and expected duration. Pain level reassessed. Patient is alert, oriented x 3, equal unlabored respirations, skin warm/dry/pink. report sent to second floor. Psych: 07:14 [place] Suicide Severity Screening: In the past month, have you wished you were ko1 or wished you could go to sleep and not wake up? Patient responds "yes." Based off the client's responses additional C-SSRS screening is required. "In the past month, have you actually had any thoughts of killing yourself?" Patient responds "yes." "In your lifetime, have you ever done anything, started to do anything, or prepared to do anything to end your life?" Patient responds "yes." just today. Subjective: Patient's mood is sad, Delusions are denied, Hallucinations are denied Having thoughts of suicide. Plan for suicide is took pills. Objective: Patient is cooperative, Speech is normal, Affect is appropriate. Interventions: Removed personal items and placed in bag. Patient placed in hospital gown. Searched person for dangerous items. Urine collected and sent for urine drug test. Belonging list filled out. Patient reassessed during use of restraints. Patient is physically safe. Patient's cardiac status is stable. Patient's respirations are even and unlabored. Patient has good circulation in all extremities as indicated by capillary refill < 3 seconds. Patient's ROM assessed and is intact. Patient nutrition and hydration needs will continue to be monitored and addressed. Patient hygiene and elimination needs met. Patient assessed for signs of distress. Patient remains reasonably comfortable at this time. Safety Checks: Personal items have been removed. Door is open. No visitors are present at this time. Pt denies substance abuse. Commitment: Patient will be a voluntary commitment. Overdose: 07:14 [place] Suicide Severity Screening: "In the past month, have you wished you were ko1 or wished you could go to sleep and not wake up?" Patient responds "yes." Based off client's responses, additional C-SSRS screening questions required. "In the past month, have you actually had any thoughts of killing yourself?" Patient responds "yes." Based off client's responses, additional C-SSRS screening questions required. "In your lifetime, have you ever done anything, started to do anything, or prepared to do anything to end your life?" Patient responds "yes." Patient reports suicidal intent within 3 past months. just today. Patient took see triage note. Overdose occurred 1-2 hours ago. Vital Signs: 07:16 BP 131 / 79; Pulse 65; Resp 16; Temp 97.4; Pulse Ox 98% on R/A; ko1 07:33 Weight 88.45 kg (R); aa5 08:15 BP 152 / 94; Pulse 60; Resp 15; Pulse Ox 99% ; ko1 09:38 BP 99 / 55; Pulse 74; Resp 15; Pulse Ox 98% ; ko1 10:51 BP 121 / 73; Pulse 67; Resp 15; Pulse Ox 100% ; ko1 11:53 BP 111 / 74; Pulse 60; Resp 15; Pulse Ox 99% ; ko1 12:50 BP 115 / 76; Pulse 64; Resp 18; Temp 97.9; Pulse Ox 99% on R/A; ph 13:49 BP 108 / 69; Pulse 73; Resp 18; Temp 97.5; Pulse Ox 98% on R/A; ph 15:25 BP 105 / 63; Pulse 74; Resp 15; Temp 98.2; ty ED Course: 07:14 Safety Checks: Personal items have been removed. The door is open or patient has been ko1 placed in a hallway bed/chair. There are no family/friend visitors at this time Sitter present at this time. 07:15 Patient arrived in ED. ko1 07:15 Safety checks: Items removed: no. Reason for not removing items: Patient needing to be ty monitored until determined to be medically stable Door open/sign placed on door: yes. Family/friend present: no. Sitter present: Yes. Head of bed elevated. Sitter at bedside. 07:18 Triage completed. ko1 07:18 Arm band placed on right wrist. Patient placed in an exam room, on a stretcher, on ko1 monitoring engineer, on pulse oximetry, Patient notified of wait time. 07:19 Patient has correct armband on for positive identification. Allergy band placed. Fall ko1 risk band placed. Placed in gown. Bed in low position. Call light in reach. Side rails up X2. Seizure precautions initiated. Provided Education on: labs. Client placed on continuous cardiac and pulse oximetry monitoring. NIBP monitoring applied. monitoring tech on. Door closed. Noise minimized. Lights dimmed. Warm blanket given. Pillow given. 07:23 Jung Nelson MD is Attending Physician. [facility] 07:30 Initial lab(s) drawn, by ED staff, sent to lab. EKG done, by ED staff, reviewed by sabrina Nelson MD. Inserted saline lock: 22 gauge in right antecubital area, using aseptic technique. Blood collected. Flushed with 10 mL NS. 07:41 Basic Metabolic Panel Sent. ko1 07:41 CBC with Diff Sent. ko1 07:41 LFT's Sent. ko1 07:41 Magnesium Sent. ko1 07:41 NT PRO-BNP Sent. ko1 07:41 PT-INR Sent. ko1 07:41 Troponin HS Sent. ko1 07:41 Ptt, Activated Sent. ko1 07:41 Salicylate Sent. ko1 07:41 ETOH Level Sent. ko1 07:41 Acetaminophen Sent. ko1 07:41 Lipase Sent. ko1 07:45 Assisted to bathroom. Assisted with urinal. ko1 07:45 Urine collected: clean catch specimen, clear. ty 07:53 Isabela Barker, EDGARD is Primary Nurse. ko1 08:07 XRAY Chest (1 view) In Process Unspecified. EDMS 08:15 No provider procedures requiring assistance completed. ko1 08:29 Rayshawn Mcneal MD is Hospitalizing Provider. casey 08:30 Assisted with urinal. ko1 10:30 Assisted with urinal. ko1 10:50 Patient admitted, IV remains in place. ko1 12:31 Diet: Patient given a regular meal tray. ty Administered Medications: 07:55 Drug: NS 0.9% IV 1000 ml IV at 1000 ml once; to be given as a bolus over 60 minutes ko1 Route: IV; Rate: 1000 ml; Site: right antecubital; 08:57 Follow up: Response: No adverse reaction; IV Status: Completed infusion; IV Intake: ko1 1000ml 07:55 Drug: Glucagon IVP 1 mg IVP once Route: IVP; Site: right antecubital; ko1 08:10 Follow up: Response: No adverse reaction ko1 07:57 Drug: Ondansetron IVP 4 mg IVP once; over 2 minutes Route: IVP; Site: right antecubital;ko1 08:12 Follow up: Response: No adverse reaction ko1 08:00 Drug: Famotidine IVP 20 mg IVP once; dilute with 10 mL 0.9% NaCl; give over 2 minutes ko1 Route: IVP; Site: right antecubital; 08:15 Follow up: Response: No adverse reaction ko1 08:57 Drug: Banana Bag - (Multivitamin IV 1 amp, NS 0.9% IV 1000 ml, Thiamine IV 100 mg, ko1 foLIC Acid IVPB 1 mg) IV at 500 ml/hr once Route: IV; Rate: 500 ml/hr; Site: right antecubital; 11:02 Follow up: Response: No adverse reaction; IV Status: Completed infusion; IV Intake: ko1 1000ml 08:57 Drug: Actidose-Sorbitol PO Suspension 100 grams PO once Route: PO; ko1 09:29 Follow up: Response: No adverse reaction ko1 10:04 Drug: Sodium Bicarbonate IVP 1 amp IVP once; (50 mL); equals 50 mEq Route: IVP; Site: ko1 right antecubital; 10:19 Follow up: Response: No adverse reaction ko1 Medication: 07:19 VIS not applicable for this client. ko1 Intake: 08:57 IV: 1000ml; Total: 1000ml. ko1 09:38 PO: 520ml; Total: 1520ml. ko1 11:02 IV: 1000ml; Total: 2520ml. ko1 Output: 09:38 Urine: 950ml (Voided); Total: 950ml. ko1 Outcome: 08:30 Decision to Hospitalize by Provider. [facility] 15:25 Patient left the ED. ph Signatures: Dispatcher [employer] EDSC Jung Nelson MD MD cha Calderon, Audri, RN RN [id number] Jacy Holt RN RN Isabela Noyola RN RN ko1 Sohan Mcneal Corrections: (The following items were deleted from the chart) 07:49 07:16 Acuity: ANAYELI 3 ko1 ko1
[2024-05-04 08:31] LABS: SARS-CoV-2 Antigen CONTROL BLUE LINE VIS/BG OK; SARS-CoV-2 Antigen Rapid Res Negative (Negative)
--- NOTE | 2024-05-04 08:40 | RAD REPORT ---
EXAMINATION: ONE VIEW CHEST XR CLINICAL INDICATION: Male, 73 years old.,COUGH TECHNIQUE: Frontal chest projection is submitted. Examination is limited by patient positioning and t echnique. COMPARISON: 08/11/2022. FINDINGS: The lungs are well inflated and clear. No pneumothorax or sizable effusion. The heart is normal in s ize. Mediastinal contours are unremarkable. IMPRESSION: No acute intrathoracic abnormalities.
[2024-05-04] MEDS ORDERED: ACTIVATED CHARCOAL 50 GM/240 ML ONE ×2 (08:43→08:48)
[2024-05-04 14:23] VITALS: BMI 27.1
--- NOTE | 2024-05-04 21:14 | P.SSS ---
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 HE DECIDED TO END HIS LIF BY TAKING 20 LOSARTAN AND 20 METOPROOL. I SAW HIM THIS AM AND HE DOES NOT SEEM SUICIDAL ANY LONGER BUT JUST UPSET. HE WILL BE WATCHED OVERNIGHT FOR HYPOTENSION AND WILL DO LAB IN AM. HE WILL GO HOME IF STABLE IN AM. Allergies No Known Allergies Allergy (Verified 09/02/22 13:56) Home medications list reviewed: Yes Home Medications: Losartan Potassium [Cozaar*] 25 mg PO DAILY #30 09/10/22 Metoprolol Succinate [Toprol Xl*] 25 mg PO [id number] #30 tab 09/10/22 Potassium Oral Tab [Klor-Con 10 mEq Tab*] 10 meq PO BID #60 tab 09/10/22 - Past Medical/Surgical History Has patient received pneumonia vaccine in the past: No Diabetic: Yes -: TB -: Hypertension -: appy -: inguinal hernia -: cabg - Social History Smoking Status: Never smoker Alcohol use: Yes CD- Drugs: No Caffeine use: Yes Place of Residence: Home Review of Systems 10-point ROS is otherwise unremarkable General: Weakness Physical Examination - Vital Signs Temperature: 97.5 F Blood Pressure: 112/68 Pulse: 68 Respirations: 16 Pulse Ox (%): 100 - Physical Exam General: Oriented x3, Mild distress HEENT: Atraumatic, PERRLA, Mucous membr. moist/pink, EOMI, Sclerae nonicteric Neck: Supple, 2+ carotid pulse no bruit, No LAD, Without JVD or thyroid abnormality Respiratory: Clear to auscultation bilaterally, Normal air movement Cardiovascular: Regular rate/rhythm, Normal S1 S2 Gastrointestinal: Normal bowel sounds, No tenderness Musculoskeletal: No tenderness Integumentary: No rashes Neurological: Normal gait, Normal speech, Normal strength at 5/5 x4 extr, Normal tone, Normal affect Lymphatics: No axilla or inguinal lymphadenopathy - Studies Laboratory Data (last 24 hrs) 05/04/24 05/04/24 05/04/24 07:30 07:30 07:30 WBC 6.50 Hgb 14.1 Hct 41.5 Plt Count 200 PT 12.0 INR 1.07 APTT 32.2 Sodium 138 Potassium 3.7 BUN 18 Creatinine 1.22 Glucose 150 H Magnesium 1.9 Total Bilirubin 1.0 AST 18 ALT 19 Alkaline Phosphatase 81 Lipase 35 Microbiology Data (last 24 hrs): 05/04/24 07:57 Nasopharnyx Influenza Type A Antigen Screen - Final 05/04/24 07:57 Nasopharnyx Influenza Type B Antigen Screen - Final - Diagnosis (Problem(s)) (1) Overdose of medication Current Visit: Yes Status: Acute Plan: WE WILL CONT IV FLUIDS HOLD ALL MEDS FOR NOW. LAB IN AM CONSULT DR. JACOBS. PSYCHIATRY. - Disposition Disposition: ROUTINE DISCHARGE
[2024-05-05] MEDS: NA CHLORIDE 0.9% 1,000 ML IV SCH (07:43)
[2024-05-05] MEDS ORDERED: ONDANSETRON 4 MG/2 ML VIAL IV PRN (07:43)
[2024-05-05] MEDS ORDERED: ACETAMINOPHEN 325 MG TABLET PO PRN (07:43)
[2024-05-05] MEDS: FAMOTIDINE 20 MG/2 ML VIAL IV SCH (08:00)
[2024-05-05 08:24] LABS: Absolute Basophils 0.1 K/uL (0-0.5); Absolute Eosinophils 0.3 K/uL (0-0.5); Absolute Lymphocytes (CBC) 1.5 K/uL (0.7-4.9); Absolute Monocytes 0.7 K/uL (0.1-1.3); Absolute Neutrophil 4.9 K/uL (1.8-8.0); Basophils % 1.1 % (0-1.3); Eosinophils % 4.2 % (0-4.4); Hematocrit 38.7 % (39.6-49.0); Hemoglobin 13.3 g/dL (13.6-17.9); Lymphocytes % 19.7 % (15.3-44.8); MCH 31.5 pg (27.0-35.0); MCHC 34.3 g/dL (32.0-36.0); MPV 8.4 fL (7.6-11.3); Monocytes % 9.7 % (3.3-12.3); Neutrophils % 65.3 % (41.7-73.7); Nucleated Red Blood Cells % 0.1 % (0-0); Platelets 184 thou/uL (152-406); RBC Red Blood Cell Count 4.21 M/uL (4.33-5.43); Red Cell Distribution Width 13.7 % (12.1-15.2)
[2024-05-05 08:41] LABS: Anion Gap 7.1 mEq/L (5.0-15.0); Potassium 4.1 mEq/L (3.5-5.1); Troponin High Sensitivity 18.8 pg/mL (<58.9)
--- NOTE | 2024-05-05 14:33 | P.PN ---
Subjective Date of Service: 05/05/24 Chief Complaint: OVERDOSE OF MEDS BY ANGER Subjective: Improving HE IS STABLE BUT DELUSIONAL. HE SAYS THAT MANY CELEBRITIES ARE CALLING HIM. TODAY [facility] [employer] CALLED HIM. YESTERDAY IT WAS THE DEALINGS WITH FAMILY PSYCHOLOGIST. HE SAYS HE IS NOT GOING TO HARM HIMSELF BUT I AM NOT SURE. HE NEEDS PSYCH HELP AND WE DON'T HAVE IT HERE. [facility] RECOMMENDED INPATIENT PSYCH FACILITY. [employer] IS WORKING ON IT ALREADY. Review of Systems 10-point ROS is otherwise unremarkable Physical Examination - Vital Signs Temperature: 98 F Blood Pressure: 154/86 Pulse: 97 Respirations: 16 Pulse Ox (%): 100 - Physical Exam General: Mild distress HEENT: Atraumatic, PERRLA, EOMI Neck: Supple, JVD not distended Respiratory: Clear to auscultation bilaterally, Normal air movement Cardiovascular: Regular rate/rhythm, Normal S1 S2 Gastrointestinal: Normal bowel sounds, No tenderness Musculoskeletal: No tenderness Integumentary: No rashes Neurological: Normal speech, Other (delusions.) Lymphatics: No axilla or inguinal lymphadenopathy - Studies Microbiology Data (last 24 hrs): 05/04/24 07:57 Nasopharnyx Influenza Type A Antigen Screen - Final 05/04/24 07:57 Nasopharnyx Influenza Type B Antigen Screen - Final Medications List Reviewed: Yes Assessment And Plan - Current Problems (Diagnosis) (1) Overdose of medication Current Visit: Yes Status: Acute Plan: WE WILL CONT IV FLUIDS HOLD ALL MEDS FOR NOW. LAB IN AM CONSULT DR. JACOBS. PSYCHIATRY. PER [facility] INHOUSE PSYCH CARE ADVISED. HE WILL HAVE TO STAY HERE UNTIL THEN. I AM CHECKED OUT TO [facility] UNTIL WEDNESDAY AM.
[2024-05-05] MEDS: NACHLORIDE 0.45% 1,000 ML IV SCH (15:00)
--- NOTE | 2024-05-05 15:48 | EKG ---
Test Date: 2024-05-04 Test Time: 07:17:15 [employer]: RICKEY MEASUREMENT RESULTS: Intervals: Rate: 60 SC: 202 QRSD: 112 QT: 426 QTc: 426 [place]: P: 72 SC: 202 QRS: -26 T: 267 INTERPRETIVE STATEMENTS: Normal sinus rhythm Possible Anterior infarct, age undetermined ST & T wave abnormality, consider lateral ischemia Abnormal ECG Compared to ECG 08/11/2022 08:09:07 Myocardial infarct finding now present Possible ischemia now present Atrial fibrillation no longer present Intraventricular conduction delay no longer present ST (T wave) deviation still present Electronically Signed On 05-05-24 15:46:12 [employer] by Armando Guzmán
[2024-05-05] MEDS ORDERED: FAMOTIDINE 20 MG/2 ML VIAL IV SCH (21:00)
--- NOTE | 2024-05-06 13:25 | P.PN ---
Subjective Date of Service: 05/06/24 Chief Complaint: OVERDOSE OF MEDS BY ANGER Patient still exhibiting grandiose delusion. He is eating well and has no other complaint. Physical Examination - Vital Signs Temperature: 97.8 F Blood Pressure: 115/73 Pulse: 77 Respirations: 16 Pulse Ox (%): 99 - Studies Medications List Reviewed: Yes Assessment And Plan - Plan Physical examination General: Alert and oriented x3, NAD, HEENT: Anicteric sclera Heart: Heart sounds 1 and 2 normal, regular rhythm, normal rate, no pedal edema Lungs: Clear to auscultation bilaterally, adequate breath sounds bilaterally, no rhonchi or crackles. Abdomen: Soft, nondistended, nontender, normal bowel sounds. Extremities: No tenderness, no deformity Skin: Normal skin turgor, no rash, no nodules or ulcers. Neuro: No focal motor deficit. Normal speech. Psychiatry: Grandiose delusion. Assessment and plan Acute psychosis Drug overdose No agitation Suspected suicide attempt Patient is cooperative. Awaiting inpatient psych placement Psychiatry to follow. Continue IV hydration. Chronic kidney disease stage III Stable Monitor renal function as needed. Essential hypertension Patient overdosed his losartan and metoprolol. He is currently normotensive. Continue to hold antihypertensives. Hyperlipidemia Patient reported to have overdosed his Lipitor. Continue to hold lipitor. No LFT elevation. DVT prophylaxis: Patient is ambulatory Advanced directive: full code.
[2024-05-06 16:16] VITALS: BP 159/71; TEMP 97.7; O2SAT 98
--- NOTE | 2024-05-06 17:11 | P.DS ---
Admission Date: 05/06/24 Discharge Date: 05/06/24 Disposition: [facility]AC[facility] Discharge Condition: FAIR Reason for Admission: OVERDOSE OF MEDS BY ANGER Brief History of Present Illness: 73-year-old gentleman with a history of hypertension was brought to the emergency department because patient overdosed with his antihypertensives. According to report patient took 20 tablets of losartan and 20 tablets of metoprolol, suicide attempt suspected. Patient systolic blood pressure in the ED was down to 99. He was hospitalized for further management. Hospital Course: Patient admitted to the medical floor and closely monitored for hypotension. Patient blood pressure remained stable throughout her hospital stay. He exhibited psychotic features with grandiose delusions which persisted throu ghout the hospital stay. Patient evaluated by [facility] who recommended inpatient psychiatry. Patient has been accepted to inpatient psychiatry. His vitals are stable for transfer. Acute psychosis Drug overdose No agitation Suspected suicide attempt Patient treated with IV hydration Patient evaluated by [facility] and inpatient psychiatry recommended He has been accepted to inpatient psychiatry. Chronic kidney disease stage III Stable Essential hypertension Patient overdosed his losartan and metoprolol. He is currently normotensive. Antihypertensives held during the hospital stay. Hyperlipidemia Patient reported to have overdosed his Lipitor. No LFT elevation. His Lipitor was held during the hospital stay. Vital Signs/Physical Exam: Temp Pulse Resp BP Pulse Ox 97.7 F 85 18 159/71 H 98 05/06/24 16:00 05/06/24 16:00 05/06/24 16:00 05/06/24 16:00 05/06/24 16:00 General: Alert, In no apparent distress, Oriented x3 HEENT: Mucous membr. moist/pink Neck: Supple, JVD not distended Respiratory: Clear to auscultation bilaterally, Normal air movement Cardiovascular: No edema, Regular rate/rhythm, Normal S1 S2 Gastrointestinal: Normal bowel sounds, Soft and benign, Non-distended Musculoskeletal: No swelling Integumentary: No rashes, No cyanosis Neurological: Normal speech, Normal strength at 5/5 x4 extr Laboratory Data at Discharge: WBC 7.40 thou/uL (4.3-10.9) 05/05/24 08:14 Hgb 13.3 g/dL (13.6-17.9) L 05/05/24 08:14 Hct 38.7 % (39.6-49.0) L 05/05/24 08:14 Plt Count 184 thou/uL (152-406) 05/05/24 08:14 PT 12.0 SECONDS (9.4-12.5) 05/04/24 07:30 INR 1.07 05/04/24 07:30 APTT 32.2 SECONDS (24.3-36.9) 05/04/24 07:30 Sodium 141 mEq/L (136-145) 05/05/24 08:14 Potassium 4.1 mEq/L (3.5-5.1) 05/05/24 08:14 BUN 19 mg/dL (7-18) H 05/05/24 08:14 Creatinine 1.33 mg/dL (0.70-1.30) H 05/05/24 08:14 Glucose 125 mg/dL (74-106) H 05/05/24 08:14 Magnesium 1.9 mg/dL (1.6-2.4) 05/04/24 07:30 Total Bilirubin 1.0 mg/dL (0.2-1.0) 05/04/24 07:30 AST 18 U/L (15-37) 05/04/24 07:30 ALT 19 U/L (16-61) 05/04/24 07:30 Alkaline Phosphatase 81 U/L (45-117) 05/04/24 07:30 Lipase 35 U/L (13-75) 05/04/24 07:30 Home Medications: Losartan Potassium [Cozaar*] 25 mg PO DAILY #30 09/10/22 Metoprolol Succinate [Toprol Xl*] 25 mg PO [id number] #30 tab 09/10/22 Diet: AHA Activity: Ad radha Followup: Rayshawn Mcneal MD [ACTIVE - CAN ADMIT] - 1-2 Weeks Time spent managing pt's care (in minutes): 33
== END 2024-05-06 19:00 | DRG 918 ==
LOC: ER 07:14 → ERHOLD 08:38 → 2ND 15:17 → OBSVTOIN 05-06 13:19
PROVIDERS: ADMIT Internal Medicine; ATTEND Internal Medicine
DX: T46.4X2A Poisoning by angiotensin-converting-enzyme inhibitors, intentional self-harm, initial encounter (principal); F23 Brief psychotic disorder; E78.5 Hyperlipidemia, unspecified; F43.21 Adjustment disorder with depressed mood; I12.9 Hypertensive chronic kidney disease with stage 1 through stage 4 chronic kidney disease, or unspecified chronic kidney disease; N18.30 Chronic kidney disease, stage 3 unspecified; I95.9 Hypotension, unspecified; T44.7X2A Poisoning by beta-adrenoreceptor antagonists, intentional self-harm, initial encounter; Z95.2 Presence of prosthetic heart valve; Z88.8 Allergy status to other drugs, medicaments and biological substances; Z11.52 Encounter for screening for COVID-19; Z87.891 Personal history of nicotine dependence; Z95.1 Presence of aortocoronary bypass graft; Z79.899 Other long term (current) drug therapy; Z90.49 Acquired absence of other specified parts of digestive tract
CPT/HCPCS: 36415; 71045; 80048; 80076; 80143; 80179; 80307; 81001; 82077; 83690; 83735; 83880; 84484; 85025; 85610; 85730; 87804; 87811; 93005; 96361; 96365; 96366; 96375; 99285; G0378; J1610; J2405; J7030